=== PATIENT | female | born 1970 | race Caucasian/White ===

== ENCOUNTER 2021-06-13 05:54 | Day surgery (SDC) | payer MEDICAID, SELFPAY ==
[2021-06-13] VITALS (8 sets, daily range): BP systolic 96–119; BP diastolic 63–82; PULSE 63–70; RESP 14–17; TEMP 36.3–36.8; O2SAT 95–99; BMI 40.3
[2021-06-13] MEDS: Lactated Ringers 1,000 ML 15 ML IV (06:10)
[2021-06-13 06:35] LABS: Bedside Glucose 146 mg/dL (74-106)
--- NOTE | 2021-06-13 06:38 | PCM.HP.BLA ---
History and Physical Date of Admission: 06/13/21 50 F who presents to the office today for evaluation of her hiatal hernia the EGD and colonoscopy due to history of IBS and personal history of polyps. She has a history of cno-trbrgcn-wkodxsmfi diabetes mellitus, obesity, hiatal hernia status post repair in 2018. She also has a history of Cristian-en-Y gastric bypass in 2019. She has been having some problems with intermittent esophageal dysphagia and she thinks that her hiatal hernia has returned or she has developed an esophageal stricture. She takes 2000 mg of Metformin a day for blood sugar control. 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 She is not having any problems with constipation or diarrhea at this time. She does experience some nausea but she associates that with her tube that she has placed in her in her ear that drinks into the back of her throat. She had this to place due to history of frequent ear infections. She has a intermittent cough, but no chest pain or shortness of breath. She also reported reflux up to once a week with burning in the epigastric region with OTC Prilosec as needed which she finds effective. History of cholecystectomy 7.12.21 following onset of RUQ pain that was progressive. Ultrasound and CT scan suggested cholelithiasis. ROS Const Constitutional: No anorexia, fatigue, fever(s), weight change or sleep problems Eyes Eyes: No change in vision ENT ENT: No abnormal hearing, difficulty swallowing, mouth lesions, tongue swelling or throat swelling Resp Respiratory: No cough or shortness of breath Cardio Cardiology: No chest pain at rest, chest pain with exertion, shortness of breath or dyspnea on exertion Gastro GI: No difficulty swallowing Genitourinary-Female: No difficulty urinating or burning urination Musc Musculoskeletal: No joint pain, joint swelling, muscle weakness or decreased muscle mass Skin Skin: No hair loss in leg, yellowing of the eye, itchy eyes, rash, skin ulcer or skin swelling Neuro Neurology: No abnormal hearing, abnormal movements, confusion, unsteady gait/balance or memory loss Psych Psychiatric: No anxiety, No confusion and No memory loss Endo Endocrine: No fatigue or weight change Aller/Imm Allergy/Immunologic: No itchy eyes, throat swelling or tongue swelling Dioni/Lymp Hematologic/Lymphatic: No easy bleeding, easy bruising or enlarged lymph nodes Exam Const General: cooperative and comfortable Nutritional Appearance: average body habitus and well nourished [facility] Head: normal to inspection Ears: hearing grossly normal bilaterally Nose: external nose normal Face and sinus: normal facial exam Mouth: oral mucosae normal Throat: posterior oropharynx normal Eyes General: appearance normal, both eyes and all related structures Neck Neck: normal visual inspection Chest Chest palpation & inspection: normal inspection of the chest and normal palpation of entire chest wall Resp Effort & Inspection: normal respiratory effort Auscultation: Bilateral: Clear to Auscultation Cardio Palpation: normal PMI Rate: regular rate Rhythm: regular rhythm GI Inspection: normal to inspection Auscultation: normal bowel sounds Percussion: normal to percussion Palpation: no hepatosplenomegaly Skin General: no rashes or lesions noted Neuro General: patient alert Extrem General: normal to inspection Psych Affect: normal affect Quality Reporting Tobacco Screening ([facility] 138) Smoking Status: Current every day smoker Assessment and Plan Assessment and Plan (1) Encounter for screening for malignant neoplasm of colon: Status: Acute Plan - Dr. Ivan Friend, DO: She will undergo colonoscopy. She was explained alternatives, risk, benefits including not withstanding bleeding, infection, sepsis, perforation, need for emergent surgery . Have an ASA 1. (2) GERD (gastroesophageal reflux disease): Status: Acute Plan - Dr. Ivan Friend, DO: We will evaluate her upper GI tract and her Cristian-en-Y gastric bypass gastrojejunal anastomosis. She was explained alternatives, risk, benefits including outstanding bleeding, infection, sepsis, perforation, need for emergent . She will have an ASA of 1. I have re-examined the patient. There are no clinical changes since date of exam.
--- NOTE | 2021-06-13 07:00 | EGD_PTH ---
PATIENT: PARDEEP ALEXANDER LOC: [facility] U#:[id number] AGE/SX: 50/F ROOM: RE06/13/[address]: Dr. Moncho Carrillo DO : 1970 BED: DIS: 06/13/2021 SPEC #: [id number] RECD: 06/13/21 12:46 STATUS: KARINA ARMANI #: [id number] MICHAEL: 06/13/21 07:[address]: Moncho Carrillo DEPT: SURGICAL PATHOLOGY RECD BY: Madhuri Malik ENTERED: 06/13/21 13:08 SP TYPE: EGD BIOPSY KRISTEN DR: Dr. Sneha Bowling DO Tissues: A - Esophagus, NOS Procedures: Special Stain Group II Surgery Specimen Level IV Alcian Blue/PAS (control) HEADER OPERATION: Colonoscopy, EGD ([facility] [place]) PRE-OP DIAGNOSIS: Screening/GERD TISSUE SUBMITTED: Distal esophageal biopsy MICROSCOPIC DIAGNOSIS Distal esophagus, biopsy: Gastroesophageal junctional mucosa with changes of reflux and mild chronic inflammation. Focal goblet cell metaplasia. No evidence of dysplasia. See comment. AM:liam 06/14/2021 COMMENT Alcian blue/PAS stain with matched control supports the above diagnosis. MICROSCOPIC DESCRIPTION Slides are reviewed. GROSS DESCRIPTION Received in fixative is one container labeled with the patient's name and designated distal esophagus biopsy. The specimen consists of two irregular fragments of light manrique soft tissue that in aggregate measure 0.6 x 0.3 x 0.1 cm. The specimen is totally submitted in one cassette. / SJ:liam 06/13/2021 TC:3 CPT: 79497, 08246
--- NOTE | 2021-06-13 07:22 | OP.EGD_ITS ---
Patient Name: Belle Campa Procedure Date: 06/13/2021 6:20 AM Date of : 1970 Age: 50 Procedure: Upper GI endoscopy Indications: Dysphagia, Heartburn Providers: Moncho Carrillo DO Medicines: See the Anesthesia note for documentation of the administered medications Patient Profile: This is a 50 year old female. Refer to note in patient chart for documentation of history and physical. Patient has symptoms. She is status post colonoscopy for polyp removal and EGD (normal) within the past several years. Complications: No immediate complications. Procedure: Pre-Anesthesia Assessment: - Prior to the procedure, a History and Physical was performed, and patient medications and allergies were reviewed. The patient is competent. The risks and benefits of the procedure and the sedation options and risks were discussed with the patient. All questions were answered and informed consent was obtained. Patient identification and proposed procedure were verified by the physician in the pre-procedure area. Mental Status Examination: alert and oriented. Airway Examination: normal oropharyngeal airway and neck mobility. Respiratory Examination: clear to auscultation. CV Examination: normal. Prophylactic Antibiotics: The patient does not require prophylactic antibiotics. Prior Anticoagulants: The patient has taken no previous anticoagulant or antiplatelet agents. ASA Grade Assessment: II - A patient with mild systemic disease. After reviewing the risks and benefits, the patient was deemed in satisfactory condition to undergo the procedure. The anesthesia plan was to use moderate sedation / analgesia (conscious sedation). Immediately prior to administration of medications, the patient was re-assessed for adequacy to receive sedatives. The heart rate, respiratory rate, oxygen saturations, blood pressure, adequacy of pulmonary ventilation, and response to care were monitored throughout the procedure. The physical status of the patient was re-assessed after the procedure. After obtaining informed consent, the endoscope was passed under direct vision. Throughout the procedure, the patient's blood pressure, pulse, and oxygen saturations were monitored continuously. The gastroscope was introduced through the mouth, and advanced to the second part of duodenum. The upper GI endoscopy was accomplished without difficulty. The patient tolerated the procedure well. Moderate Sedation: Moderate (conscious) sedation was administered by the endoscopy nurse and supervised by the endoscopist. The patient's oxygen saturation, heart rate, blood pressure and response to care were monitored. Total physician intraservice time was 15 minutes. Scope In: 6:49:22 AM Scope Out: 6:52:43 AM Total Procedure Duration Time 0 hours 3 minutes 21 seconds Findings: The Z-line was irregular and was found 38 cm from the incisors. Biopsies were taken with a cold forceps for histology. Verification of patient identification for the specimen was done. Estimated blood loss was minimal. A small hiatal hernia was present. 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 The gastrojejunal anastomosis was characterized by healthy appearing mucosa. This was traversed. The awjjv-fm-pzmhcwx limb was characterized by healthy appearing mucosa. The jejunojejunal anastomosis was characterized by healthy appearing mucosa. The zhhjxwpz-tw-qdbfkeg limb was not examined as it could not be found. Impression: - Z-line irregular, 38 cm from the incisors. Biopsied. - Small hiatal hernia. - Cristian-en-Y gastrojejunostomy with gastrojejunal anastomosis characterized by healthy appearing mucosa. Recommendation: - Discharge patient to home. - Resume previous diet. - Continue present medications. - Await pathology results. - Repeat upper endoscopy in 1 year for surveillance based on pathology results. Procedure Code(s): --- Professional --- 93060, Esophagogastroduodenoscopy, flexible, transoral; with biopsy, single or multiple 94753, 59, Moderate sedation services provided by the same physician or other qualified health laboratory animal caretaker performing the diagnostic or therapeutic service that the sedation supports, requiring the presence of an independent trained observer to assist in the monitoring of the patient's level of consciousness and physiological status; initial 15 minutes of intraservice time, patient age 5 years or older CPT copyright 2017 [employer]. All rights reserved. The codes documented in this report are preliminary and upon setter off review may be revised to meet current compliance requirements. Moncho Carrillo DO 06/13/2021 7:21:35 AM This report has been signed electronically. Number of Addenda: 1 Note Initiated On: 06/13/2021 6:20 AM Addendum Number: 1 Addendum Date: 12/01/2021 6:42:15 AM MAC was used as sedation for this procedure. Moncho Carrillo DO 12/01/2021 6:42:19 AM This report has been signed electronically.
--- NOTE | 2021-06-13 07:26 | OP.COLON_ITS ---
Patient Name: Belle Campa Procedure Date: 06/13/2021 6:53 AM Date of : 1970 Age: 50 Procedure: Colonoscopy Indications: High risk colon cancer surveillance: Personal history of colonic polyps Providers: Moncho Carrillo DO Medicines: See the Anesthesia note for documentation of the administered medications Patient Profile: This is a 50 year old female. Refer to note in patient chart for documentation of history and physical. Patient has symptoms. She is status post colonoscopy for polyp removal and EGD (normal) within the past several years. Two adenomas were found on the previous colonoscopy. The polyps were flat and 5 mm in size. These polyps were removed (polypectomy performed). Resection and retrieval were complete. Last Colonoscopy: 5 years ago. Complications: No immediate complications. Procedure: Pre-Anesthesia Assessment: - Prior to the procedure, a History and Physical was performed, and patient medications and allergies were reviewed. The patient is competent. The risks and benefits of the procedure and the sedation options and risks were discussed with the patient. All questions were answered and informed consent was obtained. Patient identification and proposed procedure were verified by the physician in the pre-procedure area. Mental Status Examination: alert and oriented. Airway Examination: normal oropharyngeal airway and neck mobility. Respiratory Examination: clear to auscultation. CV Examination: normal. Prophylactic Antibiotics: The patient does not require prophylactic antibiotics. Prior Anticoagulants: The patient has taken no previous anticoagulant or antiplatelet agents. ASA Grade Assessment: II - A patient with mild systemic disease. After reviewing the risks and benefits, the patient was deemed in satisfactory condition to undergo the procedure. The anesthesia plan was to use moderate sedation / analgesia (conscious sedation). Immediately prior to administration of medications, the patient was re-assessed for adequacy to receive sedatives. The heart rate, respiratory rate, oxygen saturations, blood pressure, adequacy of pulmonary ventilation, and response to care were monitored throughout the procedure. The physical status of the patient was re-assessed after the procedure. After I obtained informed consent, the scope was passed under direct vision. Throughout the procedure, the patient's blood pressure, pulse, and oxygen saturations were monitored continuously. The pediatric colonoscope was introduced through the anus and advanced to the cecum, identified by appendiceal orifice and ileocecal valve. The colonoscopy was performed without difficulty. The patient tolerated the procedure well. The quality of the bowel preparation was good. Moderate Sedation: Moderate (conscious) sedation was administered by the endoscopy nurse and supervised by the endoscopist. The following parameters were monitored: oxygen saturation, heart rate, blood pressure, and response to care. Total physician intraservice time was 15 minutes. Scope In: 6:55:10 AM Scope Withdrawal Time 0 hours 9 minutes 25 seconds Scope Out: 7:14:06 AM Total Procedure Duration Time 0 hours 18 minutes 56 seconds Findings: Hemorrhoids were found on perianal exam. A few small-mouthed diverticula were found in the recto-sigmoid colon and sigmoid colon. The exam was otherwise without abnormality on direct and retroflexion views. Impression: - Hemorrhoids found on perianal exam. - Diverticulosis in the recto-sigmoid colon and in the sigmoid colon. - The examination was otherwise normal on direct and retroflexion views. - No specimens collected. Recommendation: - Discharge patient to home. - Resume previous diet. - Continue present medications. - Repeat colonoscopy in 5 years for surveillance. Procedure Code(s): --- Professional --- 43514, Colonoscopy, flexible; diagnostic, including collection of specimen(s) by brushing or washing, when performed (separate procedure) G0500, Moderate sedation services provided by the same physician or other qualified health women's health care nurse practitioner performing a gastrointestinal endoscopic service that sedation supports, requiring the presence of an independent trained observer to assist in the monitoring of the patient's level of consciousness and physiological status; initial 15 minutes of intra-service time; patient age 5 years or older (additional time may be reported with 45188, as appropriate) CPT copyright 2017 [employer]. All rights reserved. The codes documented in this report are preliminary and upon special events assistant review may be revised to meet current compliance requirements. Moncho Carrillo DO 06/13/2021 7:25:52 AM This report has been signed electronically. Number of Addenda: 1 Note Initiated On: 06/13/2021 6:53 AM Addendum Number: 1 Addendum Date: 12/01/2021 6:42:27 AM MAC was used as sedation for this procedure. Moncho Carrillo DO 12/01/2021 6:42:31 AM This report has been signed electronically.
== END 2021-06-13 23:59 | disposition home or self-care (01) ==
LOC: EN 05:57 → AC 06:33
PROVIDERS: Visit Provider Internal Medicine Gastroenterology
PROC: 0DJD8ZZ Inspection of Lower Intestinal Tract, Via Natural or Artificial Opening Endoscopic (ICD-10-PCS; CPT 45378; principal; 2021-06-13 06:55)
DX: Z12.11 Encounter for screening for malignant neoplasm of colon (principal); E11.40 Type 2 diabetes mellitus with diabetic neuropathy, unspecified; Z68.41 Body mass index [BMI] 40.0-44.9, adult; K57.30 Diverticulosis of large intestine without perforation or abscess without bleeding; K64.9 Unspecified hemorrhoids; R12 Heartburn; R13.10 Dysphagia, unspecified; K44.9 Diaphragmatic hernia without obstruction or gangrene; F41.9 Anxiety disorder, unspecified; F17.200 Nicotine dependence, unspecified, uncomplicated; Z79.84 Long term (current) use of oral hypoglycemic drugs; Z79.899 Other long term (current) drug therapy; Z98.84 Bariatric surgery status; E66.9 Obesity, unspecified; Z86.010 Personal history of colon polyps; K21.00 Gastro-esophageal reflux disease with esophagitis, without bleeding
CPT/HCPCS: 45378; 43239; 82962; 88305; 88313; J7120; J2405

== ENCOUNTER 2023-01-30 13:42 | Day surgery (SDC) | payer MEDICAID, SELFPAY ==
--- NOTE | 2023-01-30 | EGD_PTH ---
PATIENT: PARDEEP ALEXANDER LOC: [facility] U#:[id number] AGE/SX: 52/F ROOM: RE01/30/[address]: Dr. Moncho Carrillo DO : 1970 BED: DIS: 01/30/2023 SPEC #: [id number] RECD: 01/30/23 16:24 STATUS: KARINA ARMANI #: [id number] MICHAEL: 01/30/23 00:[address]: Moncho Carrillo DEPT: SURGICAL PATHOLOGY RECD BY: Sp Crenshaw ENTERED: 01/31/23 07:38 SP TYPE: EGD BIOPSY KRISTEN DR: Dr. Sneha Bowling DO Tissues: Esophagus, NOS Procedures: Special Stain Group II Surgery Specimen Level IV Alcian Blue/PAS (control) HEADER OPERATION: EGD with biopsies, dilatation PRE-OP DIAGNOSIS: Nausea, GERD, dysphagia TISSUE SUBMITTED: Distal esophagus biopsy MICROSCOPIC DIAGNOSIS Distal esophagus, biopsy: Gastroesophageal junctional mucosa with mild chronic inflammation. No evidence of goblet cell metaplasia. See comment. AM:liam 02/01/2023 COMMENT Alcian blue/PAS stain with matched control supports the above diagnosis. MICROSCOPIC DESCRIPTION Slides are reviewed. GROSS DESCRIPTION Received in fixative is one container labeled with the patient's name and designated distal esophagus biopsy. The specimen consists of two irregular fragments of light manrique soft tissue that in aggregate measure 0.7 x 0.3 x 0.1 cm. The specimen is totally submitted in one cassette. / AM:liam 01/31/2023 TC:3 CPT: 64895, 68559
[2023-01-30 14:02] VITALS: BP 135/80; PULSE 75; RESP 18; TEMP 36.3; O2SAT 98; BMI 39.5
[2023-01-30] MEDS: Lactated Ringers 1,000 ML 15 ML IV (14:10)
--- NOTE | 2023-01-30 14:50 | PCM.HP.BLA ---
History and Physical Date of Admission: 01/30/23 52 F who presents to the office today for *BGI established 04.14.21 for screening colonoscopy and intermittent esophageal dysphagia. History of Cristian-en-Y gastric bypass 2018; cholecystectomy 09.11.18 ? EGD and colonoscopy 06.13.21 Irregular Zline; small hiatal hernia; Cristian-en-y gastrojejunostomy with healthy anastomosis. Metaplasia neg. ? Colonoscopy hemorrhoids; diverticulosis. No specimens OV 09.30.21 still has intermittent dysphagia but finds PPI and gas-X helpful. Start reglan and PPI BID.OV 01.11.23 she has been having nausea followed by dysphagia with intermittent emesis following PO intake. She is not taking protonix or reglan. BM pattern is regular and wit ROS Const Constitutional: No body ache, chills, fatigue or fever(s) ENT ENT: No tongue swelling or throat swelling Resp Respiratory: No cough, shortness of breath or wheezing Gastro GI: No nausea/dyspepsia Skin Skin: Positive for redness, itchy eyes and rash Endo Endocrine: No fatigue Aller/Imm Allergy/Immunologic: Positive for itchy eyes; No throat swelling, tongue swelling or wheezing Exam Const General: cooperative, healthy appearing, comfortable, no acute distress, well developed and well groomed Nutritional Appearance: overweight Orientation: alert, awake and oriented x3 HENMT Head: normocephalic and atraumatic Resp Effort & Inspection: normal respiratory effort, able to speak in complete sentences, symmetric chest movement and no cough Auscultation: Bilateral: Clear to Auscultation Cardio Rate: regular rate Rhythm: regular rhythm Heart Sounds: no murmurs Skin Other: right upper chest irreg annular lesion about 3 inch in diameter, slightly raised, mildly erythematous, mildly excoriated, no drainage, nontender, no inc. warmth Quality Reporting Tobacco Screening ([facility] [address]) Smoking Status: Former smoker Assessment and Plan Assessment and Plan (1) Nausea: Status: Chronic Plan: Chronic nausea can be a side effect from gastric bypass due to removal of gastrin. I would like to get a upper GI with follow-through plus or minus gastric emptying study (2) History of Cristian-en-Y gastric bypass: Status: Chronic Comment: 2019 (3) GERD (gastroesophageal reflux disease): Status: Inactive Qualifiers: Esophagitis presence: with esophagitis Esophagitis bleeding: without hemorrhage Qualified Code(s): K21.00 - Gastro-esophageal reflux disease with esophagitis, without bleeding Plan: She is having worsening gastroesophageal reflux disease that I thought was secondary to bile induced gastritis. She underwent an upper endoscopy was discovered to have a patent wire with a normal gastric pouch. There is no ulcerations at the proximal anastomosis with distal anastomosis. Biopsies were taken throughout the small bowel and it did show mild chronic inflammation with some very small inflammation at the site of surgery. I will give her a course of Reglan therapy along with switching her PPI to Protonix therapy (4) Encounter for screening for malignant neoplasm of colon: Status: Acute Plan: Her colonoscopy did not reveal any adenomatous polyp. She did have diverticular disease. She will need a repeat colonoscopy in 5 years. (5) Dysphagia: Status: Acute Qualifiers: Dysphagia type: esophageal phase Qualified Code(s): R13.19 - Other dysphagia Plan: She will need to undergo an upper endoscopy to evaluate upper GI tract. She was explained alternatives, risk, benefits include not withstanding bleeding, pectin, sepsis, perforation, need for return to . She will have an ASA of 3. Medications: New pantoprazole 20 mg PO Q12H 3 months 180 tabs 3RF I have examined the patient and the H&P has been reviewed. There are no clinical changes since date of exam.
--- NOTE | 2023-01-30 15:09 | OP.CCLET_ITS ---
01/30/2023 Sneha Bowling Re : Upper GI endoscopy procedure for Belle Campa Dear Dash This procedure was performed on Monday, January 30, 2023. My impressions and recommendations are as follows: Impressions : - Benign-appearing esophageal stenosis. Dilated. - Z-line irregular, 38 cm from the incisors. Biopsied. - Medium-sized hiatal hernia. - Cristian-en-Y gastrojejunostomy. Recommendations : - Discharge patient to home. - Resume previous diet. - Continue present medications. - Await pathology results. My findings are described in the full procedure note, which is enclosed. If I can be of further assistance, please feel free to contact me at . Sincerely, Moncho Carrillo, 01/30/2023 3:09:14 PM This report has been signed electronically.
--- NOTE | 2023-01-30 15:09 | OP.EGD_ITS ---
Patient Name: Belle Campa Procedure Date: 01/30/2023 2:51 PM Date of : 1970 Age: 52 Procedure: Upper GI endoscopy Indications: Dysphagia Providers: Moncho Carrillo DO Referring MD: Moncho Carrillo DO Medicines: Monitored Anesthesia Care Patient Profile: This is a 52 year old female. Refer to note in patient chart for documentation of history and physical. Patient has symptoms of dysphagia with solids. Complications: No immediate complications. Procedure: Pre-Anesthesia Assessment: - Prior to the procedure, a History and Physical was performed, and patient medications and allergies were reviewed. The patient is competent. The risks and benefits of the procedure and the sedation options and risks were discussed with the patient. All questions were answered and informed consent was obtained. Patient identification and proposed procedure were verified by the physician in the pre-procedure area. Mental Status Examination: alert and oriented. Airway Examination: normal oropharyngeal airway and neck mobility. Respiratory Examination: clear to auscultation. CV Examination: normal. Prophylactic Antibiotics: The patient does not require prophylactic antibiotics. Prior Anticoagulants: The patient has taken no anticoagulant or antiplatelet agents. ASA Grade Assessment: II - A patient with mild systemic disease. After reviewing the risks and benefits, the patient was deemed in satisfactory condition to undergo the procedure. The anesthesia plan was to use monitored anesthesia care (MAC). Immediately prior to administration of medications, the patient was re-assessed for adequacy to receive sedatives. The heart rate, respiratory rate, oxygen saturations, blood pressure, adequacy of pulmonary ventilation, and response to care were monitored throughout the procedure. The physical status of the patient was re-assessed after the procedure. After obtaining informed consent, the endoscope was passed under direct vision. Throughout the procedure, the patient's blood pressure, pulse, and oxygen saturations were monitored continuously. The gastroscope was introduced through the mouth, and advanced to the jejunum. The upper GI endoscopy was accomplished without difficulty. The patient tolerated the procedure well. Scope In: 2:58:31 PM Scope Out: 3:01:00 PM Total Procedure Duration Time 0 hours 2 minutes 29 seconds Findings: One benign-appearing, intrinsic moderate (circumferential scarring or stenosis; an endoscope may pass) stenosis was found 20 cm from the incisors. This stenosis measured 3 cm (in length). The stenosis was traversed. A guidewire was placed and the scope was withdrawn. Dilation was performed with a Savary dilator with no resistance at 60 Fr. The dilation site was examined and showed moderate improvement in luminal narrowing. Estimated blood loss was minimal. The Z-line was irregular and was found 38 cm from the incisors. Biopsies were taken with a cold forceps for histology. Verification of patient identification for the specimen was done. Estimated blood loss was minimal. A medium-sized hiatal hernia was present. 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 The jejunojejunal anastomosis was characterized by healthy appearing mucosa. The jujfqgcv-xs-[id number] limb was not examined as it could not be found. The excluded stomach was not examined as it could not be found. Impression: - Benign-appearing esophageal stenosis. Dilated. - Z-line irregular, 38 cm from the incisors. Biopsied. - Medium-sized hiatal hernia. - Cristian-en-Y gastrojejunostomy. Recommendation: - Discharge patient to home. - Resume previous diet. - Continue present medications. - Await pathology results. Procedure Code(s): --- Professional --- 09848, Esophagogastroduodenoscopy, flexible, transoral; with insertion of guide wire followed by passage of dilator(s) through esophagus over guide wire 78424, 59,51, Esophagogastroduodenoscopy, flexible, transoral; with biopsy, single or multiple CPT copyright 2021 [employer]. All rights reserved. The codes documented in this report are preliminary and upon partition notcher review may be revised to meet current compliance requirements. Moncho Carrillo DO 01/30/2023 3:09:14 PM This report has been signed electronically. Number of Addenda: 0 Note Initiated On: 01/30/2023 2:51 PM
[2023-01-30 15:10] VITALS: BP 132/76; BP 135/80; PULSE 85; RESP 16; TEMP 36.5; O2SAT 95
[2023-01-30 15:15] VITALS: BP 128/79; BP 135/80; PULSE 71; RESP 16; O2SAT 96
[2023-01-30 15:20] VITALS: BP 132/75; BP 135/80; PULSE 75; RESP 16; O2SAT 96
[2023-01-30 15:25] VITALS: BP 123/94; BP 135/80; PULSE 72; RESP 16; TEMP 36.5; O2SAT 96
[2023-01-30 15:46] VITALS: BP 135/80
[2023-01-30 18:06] LABS: Bedside Glucose 122 mg/dL (74-106)
== END 2023-01-30 16:09 | disposition home or self-care (01) ==
LOC: EN 13:44 → AC 13:46
PROVIDERS: Visit Provider Internal Medicine Gastroenterology
PROC: 0DJ08ZZ Inspection of Upper Intestinal Tract, Via Natural or Artificial Opening Endoscopic (ICD-10-PCS; CPT 43235; principal; 2023-01-30 14:40)
DX: K22.2 Esophageal obstruction (principal); E11.9 Type 2 diabetes mellitus without complications; K21.00 Gastro-esophageal reflux disease with esophagitis, without bleeding; K44.9 Diaphragmatic hernia without obstruction or gangrene; Z87.891 Personal history of nicotine dependence; Z98.84 Bariatric surgery status; Z90.49 Acquired absence of other specified parts of digestive tract; Z98.0 Intestinal bypass and anastomosis status; Z79.84 Long term (current) use of oral hypoglycemic drugs
CPT/HCPCS: 43248; 43239; 82962; 88305; 88313; J7120; C1769; J2405

== ENCOUNTER → 2023-02-12 | Outpatient (CLI) | payer MEDICAID, SELFPAY ==
--- NOTE | 2023-02-12 07:50 | RAD_ITS ---
PROCEDURE: Air contrast Upper GI with Small Bowel Follow Through DATE OF EXAMINATION: February 12, 2023.. INDICATION: Female, 52 years old. Dysphagia. Nausea and vomiting. History of prior gastric bypass surgery. FLUOROSCOPY TIME (if supplied): (0:56) minutes/seconds. 25.09 mGy. 30 images were obtained. TECHNIQUE: Radiographic and fluoroscopic images of the distal esophagus, stomach, and entire small intestine were obtained following the oral ingestion of barium. COMPARISON: None. FINDINGS: The patient ingested barium. Multiple images of the esophagus stomach and duodenum were obtained. The esophagus is unremarkable. No evidence of obstruction. No evidence of gastroesophageal reflux. The patient is status post gastric bypass surgery. No evidence of obstruction. No evidence of ulceration. A small bowel follow-through examination was then obtained. Contrast is seen within the terminal ileum within 30 minutes. No intrinsic small bowel disease is seen. RAD/Upper GI/w Small Bowel IMPRESSION: 1. Status post gastric bypass surgery. No acute abnormality is seen. Electronically Signed: Houston Tafoya MD at 10:10 EST ,
== END | disposition home or self-care (01) ==
LOC: RAD 07:44
PROVIDERS: Referring Provider Internal Medicine Gastroenterology; Visit Provider Internal Medicine Gastroenterology
DX: R13.19 Other dysphagia (principal)
CPT/HCPCS: 74246; 74248

== ENCOUNTER 2023-09-07 07:49 | Day surgery (SDC) | payer MEDICAID, SELFPAY ==
[2023-09-07] MEDS: Lidocaine Jelly 2% 20 ML Syringe (URO-JET) 1 APPLIC (08:20)
[2023-09-07 08:22] VITALS: BP 123/95; PULSE 71; RESP 16; TEMP 36.3; O2SAT 100
== END 2023-09-07 08:49 | disposition home or self-care (01) ==
PROVIDERS: Visit Provider Internal Medicine Gastroenterology
PROC: F00ZJWZ Instrumental Swallowing and Oral Function Assessment using Swallowing Equipment (ICD-10-PCS; CPT 43235; principal; 2023-09-07 07:55)
DX: K44.9 Diaphragmatic hernia without obstruction or gangrene (principal)
CPT/HCPCS: 91010

== ENCOUNTER 2023-09-20 09:06 | Day surgery (SDC) | payer MEDICAID, SELFPAY ==
[2023-09-20] VITALS (9 sets, daily range): BP systolic 110–125; BP diastolic 66–76; PULSE 68–80; RESP 16–18; TEMP 36.6–37.1; O2SAT 95–97; BMI 40.0
--- NOTE | 2023-09-20 | ESO_PTH ---
PATIENT: PARDEEP ALEXANDER LOC: [facility] U#:[id number] AGE/SX: 53/F ROOM: RE09/20/[address]: Dr. Moncho Carrillo DO : 1970 BED: DIS: 09/20/2023 SPEC #: [id number] RECD: 09/20/23 13:15 STATUS: KARINA ARMANI #: [id number] MICHAEL: 09/20/23 00:[address]: Moncho Carrillo DEPT: SURGICAL PATHOLOGY RECD BY: Rodrigo Etienne ENTERED: 09/20/23 13:15 SP TYPE: GEN PETERSON DR: Dr. Sneha Bowling DO Tissues: Esophagus, NOS Procedures: Special Stain Group I Surgery Specimen Level IV Alcian Blue/PAS (control) HEADER OPERATION: EGD, biopsy, dilatation PRE-OP DIAGNOSIS: TISSUE SUBMITTED: Distal esophagus biopsy MICROSCOPIC DIAGNOSIS Distal esophagus, biopsy: Gastroesophageal junctional mucosa with mild chronic inflammation. Focal changes of reflux. No evidence of goblet cell metaplasia. See comment. / 09/21/2023 COMMENT Alcian blue/PAS stain with matched control supports the above diagnosis. MICROSCOPIC DESCRIPTION Slides are reviewed. GROSS DESCRIPTION Received in fixative is one container labeled with the patient's name and designated Distal esophagus biopsy. The specimen consists of two irregular fragments of light manrique soft tissue that in aggregate measure 0.8 x 0.3 x 0.1 cm. The specimen is totally submitted in one cassette. COSTA/ 09/20/2023 TC:3 CPT:27078,19979
[2023-09-20] MEDS: Lactated Ringers 1,000 ML 15 ML IV (09:44)
--- NOTE | 2023-09-20 10:14 | PRE.ANES_ITS ---
ASA Classification* ASA Classification ASA Classification: 3 Assessment & Plan Anesthesia* Anesthesia Assessment Anesthesia Assessment: Discussed sedation and/or anesthesia options, risks, benefits, and alternatives with patient/parents/legal guardian/POA. Questions invited. The patient/parents/legal guardian/POA seems to understand and agrees to proceed with anesthesia plan. Reviewed the physical assessment, medical history, allergy history and patient home medications list prior to surgery/procedure/anesthetic and documented any changes. Performed airway and anesthesia risk assessments. Anesthesia Type Anesthesia Type: MAC History Source History Obtained from:: Patient and Chart Anesthesia Focused Assessment* Temperature: 98.7 F Pulse Rate: 72 Blood Pressure: 125/76 Respiratory Rate: 18 Pulse Ox: 97 Oxygen Delivery Method: Room Air Airway Assessment Mouth opens: 2 cm Mallampati Score: IV Teeth Condition: Missing (Multiple missing teeth. Rest are tight) Neck Range of motion (ROM): Limited ROM Focused Labs Anesthesia Preop lab: CBC WBC 7.4 K/mm3 (4.4-11.0) 01/30/12 13:14 RBC 4.59 M/mm3 (4.2-5.4) 01/30/12 13:14 Hgb 13.9 g.dL (12.0-15.0) 01/30/12 13:14 Hct 42.2 % (37-47) 01/30/12 13:14 Plt Count 254 K/mm3 (150-450) 01/30/12 13:14 CHEMISTRY Potassium 3.6 mmol/L (3.5-5.1) 01/30/12 13:14 Sodium 137 mmol/L (136-145) 01/30/12 13:14 BUN 11 mg/dL (7-18) 01/30/12 13:14 Creatinine 0.8 mg/dL (0.6-1.0) 01/30/12 13:14 Glucose 67 mg/dL (70-110) L 01/30/12 13:14 POC Glucose 122 mg/dL (74-106) H 01/30/23 14:00 COAG Pre-Assessment Diagnosis/Proposed Procedure Planned Operative Procedure(s): EGD Anesthesia History Anesthesia History - credit card interviewer: Anesthesia History - credit card interviewer Hx Hospitalization No 09/17/23 15:11 Any Problems With Anesthesia No 09/17/23 15:11 Cholinesterase deficiency No 09/17/23 15:11 You/Your Family Experience No 09/17/23 15:11 fever (hyperthermia) with Relationship Recent Exposure to Contagious No 09/20/23 09:36 Disease Does patient have nerve No 09/17/23 15:11 stimulator Patient instructed to have device shut off --Does patient have Pacemaker No 09/20/23 09:37 or ICD? When Was Last Pacemaker Check QUESTION #4 FULL TEXT: You/Your Family Experience fever (hyperthermia) with Anesthesia Last Oral Intake Last Oral intake: Last Oral Intake NPO since 22:00 09/20/23 09:37 Meds taken in AM with sips of No 09/20/23 09:37 water? Meds patient instructed to take am of surgery PONV PONV - credit card interviewer: PONV - credit card interviewer Female Yes 09/17/23 15:11 HX of Motion Sickness No 09/17/23 15:11 HX of N/V After Surgery No 09/17/23 15:11 Non-Smoker Yes 09/17/23 15:11 Duration of Surgery greater No 09/17/23 15:11 than 60 minutes Number of Risk Factors 2 09/17/23 15:11 PONV Score Moderate Risk 09/17/23 15:11 Height & Weight Height & Weight: Anesthesia: Height & Weight Height 5 ft 2 in 09/20/23 09:37 Weight: 99.246 kg 09/20/23 09:37 Body Mass Index (BMI) 40.0 09/20/23 09:37 Respiratory Assessment Respiratory Assessment - credit card interviewer: Respiratory Tract Infection Hx - credit card interviewer Hx Respiratory Tract Infection No 09/17/23 15:11 STOP Sleep Apnea STOP Sleep Apnea - credit card interviewer: STOP Sleep Apnea - credit card interviewer Hx Hypertension No 09/17/23 15:11 Hx Sleep Apnea Yes 09/17/23 15:11 CPAP Yes 09/17/23 15:11 BIPAP No 09/17/23 15:11 Do you snore loudly (louder than talking or can be heard Do you often feel tired/ fatigued/ sleepy during daytime? Has anyone observed you stop breathing during sleep? STOP Results Positive 09/17/23 15:11 QUESTION #5 FULL TEXT : Do you snore loudly (louder than talking or can be heard through closed doors)? 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 Specify any problems Hx of Preganancy in last 3 No 09/17/23 15:11 Months Nurse Filling Out Transfusion VCHRISTIN 09/17/23 15:11 & Questions: Date: 09/17/23 09/17/23 15:11 Time: 15:12 09/17/23 15:11 Patient unable to answer at this time (ie. confused, unrespo /Reproduction History /Reproductive History - credit card interviewer: /Reproductive Hx- credit card interviewer Hx Now Gestational Age (in weeks): EDC: Hx Hx Para Hx Section SAB No 09/17/23 15:11 Active Medications Active Medications: Current Medications Generic Name Dose Route Start Last Admin Trade Name Freq PRN Reason Stop Dose Admin Lactated Ringer's 1,000 mls @ 15 mls/hr 09/20/23 09:15 09/20/23 09:44 IV 15 mls/hr .Q48H BERNADETTE Administration PFSH Medical History History of hiatal hernia Sleep apnea Wears glasses Anxiety Diabetes Restless legs Dietary restriction Gastric reflux Former smoker CPAP (continuous positive airway pressure) dependence Neuropathy History of echocardiogram History of stress test Hypertension Encounter for screening for malignant neoplasm of colon Home Medications ?Medication ?Instructions ?Recorded ?Last Taken ?Type alprazolam 0.25 mg tablet (Xanax) 0.5 mg PO PRN PRN Anxiety 06/08/21 09/19/23 22:00 History biotin 5,000 mcg sublingual tablet 5,000 mcg sublingual DAILY 06/08/21 09/06/23 History fluoxetine 40 mg capsule (Prozac) 80 mg PO DAILY 06/08/21 09/19/23 08:00 History gabapentin 100 mg tablet 300 mg PO TID 06/08/21 09/19/23 17:00 History hydrochlorothiazide 25 mg tablet 25 mg PO DAILY 06/08/21 09/19/23 08:00 History lisinopril 20 mg tablet 20 mg PO DAILY 06/08/21 09/19/23 08:00 History metformin 1,000 mg tablet 1,000 mg PO BID 06/08/21 09/19/23 20:00 History cetirizine 10 mg tablet 10 mg PO DAILY 01/23/23 09/19/23 History pantoprazole 20 mg tablet,delayed 20 mg PO BID 07/26/23 09/19/23 22:00 History release amitriptyline 25 mg tablet 25 mg PO QHS #30 tabs 09/03/23 09/19/23 22:00 Rx diltiazem HCl 30 mg tablet 30 mg PO QHS #30 tabs 09/03/23 09/19/23 22:00 Rx (Cardizem) dulaglutide 0.75 mg/0.5 mL 0.75 mg subcut QWEEK 09/17/23 09/16/23 History subcutaneous pen injector (Trulicity) Allergy/AdvReac Type Severity Reaction Status Date / Time codeine (From Allergy Rash Verified 09/20/23 09:32 Tylenol-Codeine) hydrocodone (From Vicodin) Allergy Rash Verified 09/20/23 09:32 Sulfa (Sulfonamide Allergy Rash Verified 09/20/23 09:32 Antibiotics) Surgical History History of esophagogastroduodenoscopy (EGD) Bariatric surgery status Hx of colonoscopy History of esophagogastroduodenoscopy (EGD) Hx of hernia repair History of tonsillectomy and adenoidectomy Hx of foot surgery Hx of total hysterectomy Hx of gastric bypass Hx laparoscopic cholecystectomy Social History Smoking Status: Former smoker Review of Systems (Anesthesia) ROS Narrative System reviewed and no additional complaints, except as documented.
[2023-09-20 10:21] LABS: Bedside Glucose 107 mg/dL (74-106)
--- NOTE | 2023-09-20 10:40 | PCM.HP.BLA ---
History and Physical Date of Admission: 09/20/23 ROSE ALEXANDER, is a 52 F who presents to the office today for follow up. *[facility] established 04.14.21 for screening colonoscopy and intermittent esophageal dysphagia. History of Cristian-en-Y gastric bypass 2018; cholecystectomy 09.11.18 ? EGD and colonoscopy 06.13.21 Irregular Zline; small hiatal hernia; Cristian-en-y gastrojejunostomy with healthy anastomosis. Metaplasia neg. ? Colonoscopy hemorrhoids; diverticulosis. No specimens OV 09.30.21 still has intermittent dysphagia but finds PPI and gas-X helpful. Start reglan and PPI BID. OV 01.11.23 she has been having nausea followed by dysphagia with intermittent emesis following PO intake. She is not taking protonix or reglan. BM pattern is regular and without difficulty. ? EGD 01.30.23 esophageal stenosis, Savary 60F; irregular Zline; medium hiatal hernia; Cristian-en-Y with healthy anastomosis. No metaplasia ? Upper GISBFT 02.12.23 no acute/chronic abnormality. OV 02.16. feels swallowing, nausea have improved but are still present; epigastric pain continues. Admits to poor diet as she does a lot of traveling. OV 07.24.24 pt reports that N/V have improved and occur maybe once or twice a month. Pt continues to struggle with swallowing and feels like food is getting stuck in her throat. ROS Const Constitutional: Positive for fatigue and weight change (weight loss and gain ); No fever(s) ENT ENT: Positive for difficulty swallowing Cardio Cardiology: Positive for leg pain with exertion Gastro GI: Positive for bloating, difficulty swallowing, excessive flatus, nausea/dyspepsia and vomiting; No abdominal pain, belching, change in bowel habits, change in stool character, coffee ground emesis, constipation, cramping, diarrhea, heartburn, feeling full early, incontinent of stools, Vomiting blood/hematemesis, Blood in stool, loose stools, Black,tarry stools, pain with swallowing or other Musc Musculoskeletal: Positive for joint pain, back pain, joint swelling, muscle cramps, muscle weakness, numbness, tingling, Arthritis, leg pain at night and leg pain with exertion Skin Skin: No yellowing of the eye or itchy eyes Neuro Neurology: Positive for numbness, tingling and tremor(s) Psych Psychiatric: Positive for anxiety and No depression Endo Endocrine: Positive for fatigue and weight change (weight loss and gain ) Aller/Imm Allergy/Immunologic: No itchy eyes Dioni/Lymp Hematologic/Lymphatic: Positive for easy bruising; No easy bleeding Exam Const General: cooperative, healthy appearing, comfortable, no acute distress, well developed and well groomed Nutritional Appearance: overweight Orientation: alert, awake and oriented x3 HENMT Head: normocephalic and atraumatic Resp Effort & Inspection: normal respiratory effort, able to speak in complete sentences, symmetric chest movement and no cough Auscultation: Bilateral: Clear to Auscultation Cardio Rate: regular rate Rhythm: regular rhythm Heart Sounds: no murmurs Skin Other: right upper chest irreg annular lesion about 3 inch in diameter, slightly raised, mildly erythematous, mildly excoriated, no drainage, nontender, no inc. warmth Assessment and Plan Assessment and Plan (1) Dysphagia: Status: Chronic Qualifiers: Dysphagia type: esophageal phase Qualified Code(s): R13.19 - Other dysphagia Plan: She will need to undergo an upper endoscopy to evaluate upper GI tract with botox and possible dilation. She was explained alternatives, risk, benefits include not withstanding bleeding, pectin, sepsis, perforation, need for return to . She will have an ASA of 3. (2) History of Cristian-en-Y gastric bypass: Status: Chronic Comment: 2019 (3) Nausea: Status: Chronic Plan: Chronic nausea can be a side effect from gastric bypass due to removal of gastrin. I would like to get a upper GI with follow-through plus or minus gastric emptying study. Since her upper GI with small bowel follow-through showed narrowing at the GE junction she will undergo EGD with dilation. (4) GERD (gastroesophageal reflux disease): Status: Inactive Qualifiers: Esophagitis presence: with esophagitis Esophagitis bleeding: without hemorrhage Qualified Code(s): K21.00 - Gastro-esophageal reflux disease with esophagitis, without bleeding Plan: She is having worsening gastroesophageal reflux disease that I thought was secondary to bile induced gastritis. She underwent an upper endoscopy was discovered to have a patent wire with a normal gastric pouch. There is no ulcerations at the proximal anastomosis with distal anastomosis. Biopsies were taken throughout the small bowel and it did show mild chronic inflammation with some very small inflammation at the site of surgery. I will give her a course of Reglan therapy along with switching her PPI to Protonix therapy (5) Encounter for screening for malignant neoplasm of colon: Status: Inactive Plan: Her colonoscopy did not reveal any adenomatous polyp. She did have diverticular disease. She will need a repeat colonoscopy in 5 years. Orders: Orders\ I have examined the patient and the H&P has been reviewed. There are no clinical changes since date of exam.
--- NOTE | 2023-09-20 11:10 | OP.CCLET_ITS ---
09/20/2023 Sneha Bowling Re : Upper GI endoscopy procedure for Belle Hamm Dear Dash This procedure was performed on September. My impressions and recommendations are as follows: Impressions : - Benign-appearing esophageal stenosis. Dilated. - Gastric bypass with a normal-sized pouch and intact staple line. Gastrojejunal anastomosis characterized by healthy appearing mucosa. - Normal examined jejunum. - No specimens collected. Recommendations : - Discharge patient to home. - Full liquid diet today. - Continue present medications. - Await pathology results. My findings are described in the full procedure note, which is enclosed. If I can be of further assistance, please feel free to contact me at . Sincerely, Moncho Carrillo, 09/20/2023 11:09:47 AM This report has been signed electronically.
--- NOTE | 2023-09-20 11:10 | OP.EGD_ITS ---
Patient Name: Belle Hamm Procedure Date: 09/20/2023 10:34 AM Date of : 1970 Age: 53 Procedure: Upper GI endoscopy Indications: Dysphagia Providers: Moncho Carrillo DO Medicines: Monitored Anesthesia Care Patient Profile: This is a 53 year old female. Refer to note in patient chart for documentation of history and physical. Patient has symptoms of chronic chest pain and chronic dysphagia. Complications: No immediate complications. Procedure: Pre-Anesthesia Assessment: - Prior to the procedure, a History and Physical was performed, and patient medications and allergies were reviewed. The risks and benefits of the procedure and the sedation options and risks were discussed with the patient. All questions were answered and informed consent was obtained. Patient identification and proposed procedure were verified [Verifying Personnel] [Verification]. [Mental Status Exam]. [Airway Exam]. [Respiratory Exam]. [CV Exam]. The patient [Abx Prophylaxis Requirement] prophylactic antibiotics [High Risk History Reason] and [High Risk Procedure Reason]. [Anticoagulant Agents] [Days Prior to Procedure]. [ASA Grade]. After reviewing the risks and benefits, the patient was deemed in satisfactory condition to undergo the procedure. [Anesthesia Plan]. Immediately prior to administration of medications, the patient was re-assessed for adequacy to receive sedatives. The heart rate, respiratory rate, oxygen saturations, blood pressure, adequacy of pulmonary ventilation, and response to care were monitored throughout the procedure. The physical status of the patient was re-assessed after the procedure. After obtaining informed consent, the endoscope was passed under direct vision. Throughout the procedure, the patient's blood pressure, pulse, and oxygen saturations were monitored continuously. The gastroscope was introduced through the mouth, and advanced to the jejunum. The upper GI endoscopy was accomplished without difficulty. The patient tolerated the procedure well. Scope In: 10:58:03 AM Scope Out: 11:02:52 AM Total Procedure Duration Time 0 hours 4 minutes 49 seconds Findings: One benign-appearing, intrinsic moderate (circumferential scarring or stenosis; an endoscope may pass) stenosis was found 20 to 22 cm from the incisors. This stenosis measured 4 cm (in length). The stenosis was traversed. A guidewire was placed and the scope was withdrawn. Dilation was performed with a Savary dilator with no resistance at 60 Fr. The dilation site was examined and showed moderate mucosal disruption. Estimated blood loss was minimal. Evidence of a gastric bypass was found. A gastric pouch with a normal size was found. The staple line appeared intact. The gastrojejunal anastomosis was characterized by healthy appearing mucosa. This was traversed. The dllho-bh-lqsfxwn limb was characterized by healthy appearing mucosa. The jejunojejunal anastomosis was characterized by healthy appearing mucosa. The nmropmcq-po-evfbsyb limb was not examined as it could not be found. The excluded stomach was not examined as it could not be found. The examined jejunum was normal. The Z-line was irregular and was found 40 cm from the incisors. Biopsies were taken with a cold forceps for histology. Verification of patient identification for the specimen was done. Estimated blood loss was minimal. Impression: - Benign-appearing esophageal stenosis. Dilated. - Gastric bypass with a normal-sized pouch and intact staple line. Gastrojejunal anastomosis characterized by healthy appearing mucosa. - Normal examined jejunum. - No specimens collected. Recommendation: - Discharge patient to home. - Full liquid diet today. - Continue present medications. - Await pathology results. Procedure Code(s): --- Professional --- 90103, Esophagogastroduodenoscopy, flexible, transoral; with insertion of guide wire followed by passage of dilator(s) through esophagus over guide wire 23573, 59,51, Esophagogastroduodenoscopy, flexible, transoral; with biopsy, single or multiple CPT copyright 2021 [employer]. All rights reserved. The codes documented in this report are preliminary and upon lifeguard review may be revised to meet current compliance requirements. Moncho Carrillo DO 09/20/2023 11:09:47 AM This report has been signed electronically. Number of Addenda: 0 Note Initiated On: 09/20/2023 10:34 AM
--- NOTE | 2023-09-20 11:11 | PCM.POST.ANE ---
Anesthesia: Postop Eval I Current Vital Signs Temperature: 98.3 F Pulse Rate: 74 Blood Pressure: 110/66 Respiratory Rate: 16 Pulse Ox: 97 Oxygen Delivery Method: Room Air Assessment Airway patent: Yes Spontaneous unlabored respirations: Yes Mental status: Awake and Calm nausea: No Vomiting: No Anesthesia Complication: No Fluid Hydration Crystalloid volume administer (ml): 400 Total IV fluid infused: 400 Progress Note Anesthesia document: Postop Eval 1 completed: Yes
--- NOTE | 2023-09-20 11:27 | PCM.POSTANE2 ---
Anesthesia Postop Eval I Sum Postop Eval Completion status Anesthesia document: Postop Eval 1 completed: Yes Anesthesia Postop Eval I Summary Anesthesia Postop Eval I Summary: Anesthesia Postop Eval I: Assessment Summary Airway patent Yes 09/20/23 11:12 [email or web address] Spontaneous unlabored Yes 09/20/23 11:12 [email or web address] respirations Mental status Awake,Calm 09/20/23 11:12 [email or web address] nausea No 09/20/23 11:12 [email or web address] Vomiting No 09/20/23 11:12 [email or web address] Anesthesia Postop Eval I: Fluid Summary Crystalloid volume administer 400 09/20/23 11:12 [email or web address] (ml) Colloids volume administered ( ml) Blood Product volume administered (ml) Total IV fluid infused 400 09/20/23 11:12 [email or web address] Anesthesia Postop Eval I: Summary Notes Anesthesia Complication No 09/20/23 11:12 [email or web address] Anesthesia Complication Comment: Post-operative progress note Anesthesia: Postop Eval II Evaluation Mental status: Awake Pain Level: 0 nausea: No Vomiting: No
== END 2023-09-20 11:55 | disposition home or self-care (01) ==
LOC: EN 09:07 → AC 09:08
PROVIDERS: Visit Provider Internal Medicine Gastroenterology
PROC: 0DJ08ZZ Inspection of Upper Intestinal Tract, Via Natural or Artificial Opening Endoscopic (ICD-10-PCS; CPT 43235; principal; 2023-09-20 10:25)
DX: R13.10 Dysphagia, unspecified (principal); K22.2 Esophageal obstruction; R11.0 Nausea; K21.00 Gastro-esophageal reflux disease with esophagitis, without bleeding; Z98.84 Bariatric surgery status; K22.89 Other specified disease of esophagus; Z79.899 Other long term (current) drug therapy
CPT/HCPCS: 43248; 43239; 82962; 88305; 88312; J7120; C1769; J2405

== ENCOUNTER 2023-11-16 05:28 | Day surgery (SDC) | payer MEDICAID, SELFPAY ==
[2023-11-16] VITALS (7 sets, daily range): BP systolic 96–118; BP diastolic 58–84; PULSE 65–69; RESP 16; TEMP 36.2–36.4; O2SAT 96–99; BMI 40.4
[2023-11-16] MEDS: Lactated Ringers 1,000 ML 15 ML IV (06:05)
[2023-11-16 06:30] LABS: Bedside Glucose 134 mg/dL (74-106)
--- NOTE | 2023-11-16 06:30 | EGD_PTH ---
PATIENT: PARDEEP ALEXANDER LOC: EN U#:[id number] AGE/SX: 53/F ROOM: RE11/16/[address]: Dr. Moncho Carrillo DO : 1970 BED: DIS: 11/16/2023 SPEC #: [id number] RECD: 11/16/23 11:53 STATUS: KARINA POOLZion #: [id number] MICHAEL: 11/16/23 06:[address]: Moncho Carrillo DEPT: SURGICAL PATHOLOGY RECD BY: Sp Crenshaw ENTERED: 11/16/23 13:10 SP TYPE: EGD BIOPSY KRISTEN DR: Dr. Sneha Bowling DO Tissues: Jejunum, NOS Procedures: Surgery Specimen Level IV HEADER OPERATION: EGD with biopsy PRE-OP DIAGNOSIS: Dysphagia, GERD, nausea, history of gastric bypass TISSUE SUBMITTED: Jejunum biopsy MICROSCOPIC DIAGNOSIS Jejunum, biopsy: Fragments of small intestinal mucosa, no pathologic diagnosis. 11/19/2023 MICROSCOPIC DESCRIPTION Slides are reviewed. GROSS DESCRIPTION Received in fixative is one container labeled with the patient's name and designated Jejunum biopsy. The specimen consists of multiple irregular fragments of light manrique soft tissue that in aggregate measure 1.2 x 0.3 x 0.1 cm. The specimen is totally submitted in one cassette. 11/16/2023 TC:4 CPT:61518
--- NOTE | 2023-11-16 06:33 | PCM.PRE.AN2 ---
ASA Classification* ASA Classification ASA Classification: 2 Assessment & Plan Anesthesia* Anesthesia Assessment Anesthesia Assessment: Discussed sedation and/or anesthesia options, risks, benefits, and alternatives with patient/parents/legal guardian/POA. Questions invited. The patient/parents/legal guardian/POA seems to understand and agrees to proceed with anesthesia plan. Reviewed the physical assessment, medical history, allergy history and patient home medications list prior to surgery/procedure/anesthetic and documented any changes. Performed airway and anesthesia risk assessments. Anesthesia Type Anesthesia Type: MAC Anesthesia Focused Assessment* Temperature: 97.5 F Pulse Rate: 68 Blood Pressure: 118/84 Respiratory Rate: 16 Pulse Ox: 99 Airway Assessment Mouth opens: >3 cm Mallampati Score: II Focused Labs Anesthesia Preop lab: CBC WBC 7.4 K/mm3 (4.4-11.0) 01/30/12 13:14 RBC 4.59 M/mm3 (4.2-5.4) 01/30/12 13:14 Hgb 13.9 g.dL (12.0-15.0) 01/30/12 13:14 Hct 42.2 % (37-47) 01/30/12 13:14 Plt Count 254 K/mm3 (150-450) 01/30/12 13:14 CHEMISTRY Potassium 3.6 mmol/L (3.5-5.1) 01/30/12 13:14 Sodium 137 mmol/L (136-145) 01/30/12 13:14 BUN 11 mg/dL (7-18) 01/30/12 13:14 Creatinine 0.8 mg/dL (0.6-1.0) 01/30/12 13:14 Glucose 67 mg/dL (70-110) L 01/30/12 13:14 POC Glucose 134 mg/dL (74-106) H 11/16/23 05:56 COAG Pre-Assessment Diagnosis/Proposed Procedure Planned Operative Procedure(s): EGD Anesthesia History 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 When Was Last Pacemaker Check QUESTION #4 FULL TEXT: You/Your Family Experience fever (hyperthermia) with Anesthesia Last Oral Intake Last Oral intake: Last Oral Intake NPO since 22:00 11/16/23 06:03 Meds taken in AM with sips of Yes 11/16/23 06:03 water? 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 Female Yes 11/14/23 15:53 HX of Motion Sickness No 11/14/23 15:53 HX of N/V After Surgery No 11/14/23 15:53 Non-Smoker Yes 11/14/23 15:53 Duration of Surgery greater No 11/14/23 15:53 than 60 minutes Number of Risk Factors 2 11/14/23 15:53 PONV Score Moderate Risk 11/14/23 15:53 Height & Weight Height & Weight: Anesthesia: Height & Weight Height 5 ft 2 in 11/16/23 06:03 Weight: 100.2 kg 11/16/23 06:03 Body Mass Index (BMI) 40.4 11/16/23 06:03 Respiratory Assessment Respiratory Assessment - 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 Has anyone observed you stop breathing during sleep? STOP Results Positive 11/14/23 15:53 QUESTION #5 FULL TEXT : Do you snore loudly (louder than talking or can be heard through closed doors)? 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 Specify any problems Hx of Preganancy in last 3 N/A 11/14/23 15:53 Months Nurse Filling Out Transfusion NBUCHER 11/14/23 15:53 & Questions: Date: 11/14/23 11/14/23 15:53 Time: 15:54 11/14/23 15:53 Patient unable to answer at this time (ie. 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 Hx Now Gestational Age (in weeks): EDC: Hx Hx Para Hx Section SAB No 11/14/23 15:53 Active Medications Active Medications: Current Medications Generic Name Dose Route Start Last Admin Trade Name Freq PRN Reason Stop Dose Admin Lactated Ringer's 1,000 mls @ 15 mls/hr 11/16/23 06:00 11/16/23 06:05 IV 15 mls/hr .Q48H BERNADETTE Administration PFSH Medical History History of hiatal hernia Sleep apnea Wears glasses Anxiety Diabetes Restless legs Dietary restriction Gastric reflux Former smoker CPAP (continuous positive airway pressure) dependence Neuropathy History of echocardiogram History of stress test Hypertension Encounter for screening for malignant neoplasm of colon Home Medications ?Medication ?Instructions ?Recorded ?Last Taken ?Type alprazolam 0.25 mg tablet (Xanax) 0.5 mg PO PRN PRN Anxiety 06/08/21 11/16/23 History biotin 5,000 mcg sublingual tablet 5,000 mcg sublingual DAILY 06/08/21 09/06/23 History fluoxetine 40 mg capsule (Prozac) 80 mg PO DAILY 06/08/21 09/19/23 08:00 History gabapentin 100 mg tablet 300 mg PO TID 06/08/21 11/16/23 History hydrochlorothiazide 25 mg tablet 25 mg PO DAILY 06/08/21 09/19/23 08:00 History lisinopril 20 mg tablet 20 mg PO DAILY 06/08/21 11/16/23 History metformin 1,000 mg tablet 1,000 mg PO BID 06/08/21 09/19/23 20:00 History cetirizine 10 mg tablet 10 mg PO DAILY 01/23/23 09/19/23 History pantoprazole 20 mg tablet,delayed 20 mg PO BID 07/26/23 09/19/23 22:00 History release dulaglutide 0.75 mg/0.5 mL 0.75 mg subcut MO 09/17/23 11/05/23 History subcutaneous pen injector (Trulicity) ondansetron 4 mg disintegrating 4 mg PO Q8H PRN nausea and 10/11/23 Unknown Rx tablet vomiting #90 tabs amitriptyline 25 mg tablet 25 mg PO QHS #30 TABLETS 10/29/23 Unknown Rx diltiazem HCl 30 mg tablet 30 mg PO QHS #30 TABLETS 10/29/23 Unknown Rx Allergy/AdvReac Type Severity Reaction Status Date / Time codeine (From Allergy Rash Verified 11/16/23 05:52 Tylenol-Codeine) hydrocodone (From Vicodin) Allergy Rash Verified 11/16/23 05:52 Sulfa (Sulfonamide Allergy Rash Verified 11/16/23 05:52 Antibiotics) NSAIDS (Non-Steroidal AdvReac Other Verified 11/16/23 05:54 Anti-Inflamma Family History Brother Diabetes Heart disease Surgical History History of esophagogastroduodenoscopy (EGD) Bariatric surgery status Hx of colonoscopy History of esophagogastroduodenoscopy (EGD) Hx of hernia repair History of tonsillectomy and adenoidectomy Hx of foot surgery Hx of total hysterectomy Hx of gastric bypass Hx laparoscopic cholecystectomy Social History Smoking Status: Former smoker how long ago did patient quit smoking: quit 2012 alcohol intake: never substance use type: does not use additional social history: denies vaping, denies marijuana use, denies edible, denies aspirin use denies ibuprofen Review of Systems (Anesthesia) ROS Narrative System reviewed and no additional complaints, except as documented.
--- NOTE | 2023-11-16 06:41 | PCM.HP.BLA ---
History and Physical Date of Admission: 11/16/23 PARDEEP ALEXANDER, is a 52 F who presents to the office today for follow up. *[facility] established 04.14.21 for screening colonoscopy and intermittent esophageal dysphagia. History of Cristian-en-Y gastric bypass 2018; cholecystectomy 09.11.18 ? EGD and colonoscopy 06.13.21 Irregular Zline; small hiatal hernia; Cristian-en-y gastrojejunostomy with healthy anastomosis. Metaplasia neg. ? Colonoscopy hemorrhoids; diverticulosis. No specimens OV 09.30.21 still has intermittent dysphagia but finds PPI and gas-X helpful. Start reglan and PPI BID. OV 01.11.23 she has been having nausea followed by dysphagia with intermittent emesis following PO intake. She is not taking protonix or reglan. BM pattern is regular and without difficulty. ? EGD 01.30.23 esophageal stenosis, Savary 60F; irregular Zline; medium hiatal hernia; Cristian-en-Y with healthy anastomosis. No metaplasia ? Upper GISBFT 02.12.23 no acute/chronic abnormality. OV 02.16. feels swallowing, nausea have improved but are still present; epigastric pain continues. Admits to poor diet as she does a lot of traveling. OV 07.24.24 pt reports that N/V have improved and occur maybe once or twice a month. Pt continues to struggle with swallowing and feels like food is getting stuck in her throat. ROS Const Constitutional: Positive for fatigue and weight change (weight loss and gain ); No fever(s) ENT ENT: Positive for difficulty swallowing Cardio Cardiology: Positive for leg pain with exertion Gastro GI: Positive for bloating, difficulty swallowing, excessive flatus, nausea/dyspepsia and vomiting; No abdominal pain, belching, change in bowel habits, change in stool character, coffee ground emesis, constipation, cramping, diarrhea, heartburn, feeling full early, incontinent of stools, Vomiting blood/hematemesis, Blood in stool, loose stools, Black,tarry stools, pain with swallowing or other Musc Musculoskeletal: Positive for joint pain, back pain, joint swelling, muscle cramps, muscle weakness, numbness, tingling, Arthritis, leg pain at night and leg pain with exertion Skin Skin: No yellowing of the eye or itchy eyes Neuro Neurology: Positive for numbness, tingling and tremor(s) Psych Psychiatric: Positive for anxiety and No depression Endo Endocrine: Positive for fatigue and weight change (weight loss and gain ) Aller/Imm Allergy/Immunologic: No itchy eyes Dioni/Lymp Hematologic/Lymphatic: Positive for easy bruising; No easy bleeding Exam Const General: cooperative, healthy appearing, comfortable, no acute distress, well developed and well groomed Nutritional Appearance: overweight Orientation: alert, awake and oriented x3 HENMT Head: normocephalic and atraumatic Resp Effort & Inspection: normal respiratory effort, able to speak in complete sentences, symmetric chest movement and no cough Auscultation: Bilateral: Clear to Auscultation Cardio Rate: regular rate Rhythm: regular rhythm Heart Sounds: no murmurs Skin Other: right upper chest irreg annular lesion about 3 inch in diameter, slightly raised, mildly erythematous, mildly excoriated, no drainage, nontender, no inc. warmth Assessment and Plan Assessment and Plan (1) Dysphagia: Status: Chronic Qualifiers: Dysphagia type: esophageal phase Qualified Code(s): R13.19 - Other dysphagia Plan: She will need to undergo an upper endoscopy to evaluate upper GI tract with botox and possible dilation. She was explained alternatives, risk, benefits include not withstanding bleeding, pectin, sepsis, perforation, need for return to . She will have an ASA of 3. (2) History of Cristian-en-Y gastric bypass: Status: Chronic Comment: 2019 (3) Nausea: Status: Chronic Plan: Chronic nausea can be a side effect from gastric bypass due to removal of gastrin. I would like to get a upper GI with follow-through plus or minus gastric emptying study (4) GERD (gastroesophageal reflux disease): Status: Inactive Qualifiers: Esophagitis presence: with esophagitis Esophagitis bleeding: without hemorrhage Qualified Code(s): K21.00 - Gastro-esophageal reflux disease with esophagitis, without bleeding Plan: She is having worsening gastroesophageal reflux disease that I thought was secondary to bile induced gastritis. She underwent an upper endoscopy was discovered to have a patent wire with a normal gastric pouch. There is no ulcerations at the proximal anastomosis with distal anastomosis. Biopsies were taken throughout the small bowel and it did show mild chronic inflammation with some very small inflammation at the site of surgery. I will give her a course of Reglan therapy along with switching her PPI to Protonix therapy (5) Encounter for screening for malignant neoplasm of colon: Status: Inactive Plan: Her colonoscopy did not reveal any adenomatous polyp. She did have diverticular disease. She will need a repeat colonoscopy in 5 years. Orders: Orders EGD 07/31/23 R13.19 - Other dysphagia I have examined the patient and the H&P has been reviewed. There are no clinical changes since date of exam.
--- NOTE | 2023-11-16 07:00 | OP.CCLET_ITS ---
11/16/2023 Sneha Bowling Re : Upper GI endoscopy procedure for Belle Hamm Dear Dash This procedure was performed on Thursday, November 16, 2023. My impressions and recommendations are as follows: Impressions : - Abnormal esophageal motility, established esophageal spasm. - Small hiatal hernia. 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 - Suspected jejunal inflammation characterized by erosions and erythema. Biopsied. Recommendations : - Discharge patient to home. - Resume previous diet. - Continue present medications. - Await pathology results. My findings are described in the full procedure note, which is enclosed. If I can be of further assistance, please feel free to contact me at . Sincerely, Moncho Carrillo, 11/16/2023 6:59:58 AM This report has been signed electronically.
--- NOTE | 2023-11-16 07:00 | OP.EGD_ITS ---
Patient Name: Belle Hamm Procedure Date: 11/16/2023 6:11 AM Date of : 1970 Age: 53 Procedure: Upper GI endoscopy Indications: Epigastric abdominal pain, Functional Dyspepsia, Dysphagia, Heartburn, Suspected esophageal reflux, Failure to respond to medical treatment Providers: Moncho Carrillo DO Referring MD: Sneha Bowling Medicines: Monitored Anesthesia Care Patient Profile: This is a 53 year old female. Refer to note in patient chart for documentation of history and physical. Patient has symptoms of acute abdominal cramping, acute epigastric abdominal pain, chronic dysphagia and chronic nausea. Complications: No immediate complications. Procedure: Pre-Anesthesia Assessment: - Prior to the procedure, a History and Physical was performed, and patient medications and allergies were reviewed. The patient is competent. The risks and benefits of the procedure and the sedation options and risks were discussed with the patient. All questions were answered and informed consent was obtained. Patient identification and proposed procedure were verified by the physician in the pre-procedure area. Mental Status Examination: alert and oriented. Airway Examination: normal oropharyngeal airway and neck mobility. Respiratory Examination: clear to auscultation. CV Examination: normal. Prophylactic Antibiotics: The patient does not require prophylactic antibiotics. Prior Anticoagulants: The patient has taken no anticoagulant or antiplatelet agents except for NSAID medication. ASA Grade Assessment: III - A patient with severe systemic disease. After reviewing the risks and benefits, the patient was deemed in satisfactory condition to undergo the procedure. The anesthesia plan was to use monitored anesthesia care (MAC). Immediately prior to administration of medications, the patient was re-assessed for adequacy to receive sedatives. The heart rate, respiratory rate, oxygen saturations, blood pressure, adequacy of pulmonary ventilation, and response to care were monitored throughout the procedure. The physical status of the patient was re-assessed after the procedure. After obtaining informed consent, the endoscope was passed under direct vision. Throughout the procedure, the patient's blood pressure, pulse, and oxygen saturations were monitored continuously. The Colonoscope was introduced through the mouth, and advanced to the second part of duodenum. The upper GI endoscopy was accomplished without difficulty. The patient tolerated the procedure well. Scope In: 6:47:33 AM Scope Out: 6:53:54 AM Total Procedure Duration Time 0 hours 6 minutes 21 seconds Findings: Abnormal motility was noted in the esophagus. The cricopharyngeus was abnormal. There is spasticity of the esophageal body. The distal esophagus/lower esophageal sphincter is spastic, but gives up passage to the endoscope. Secondary peristaltic waves are noted. A small hiatal hernia was present. 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 The gastrojejunal anastomosis was characterized by ulceration. This was traversed. The pxlzj-pj-ssukznc limb was characterized by healthy appearing mucosa. The jejunojejunal anastomosis was characterized by healthy appearing mucosa. The wekrvpsq-gu-jwoyshr limb was not examined as it could not be found. The excluded stomach was not examined as it could not be found. Patchy mild inflammation, characterized by erosions and erythema was found in the jejunum. Biopsies were taken with a cold forceps for histology. Verification of patient identification for the specimen was done. Estimated blood loss was minimal. Impression: - Abnormal esophageal motility, established esophageal spasm. - Small hiatal hernia. 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 - Suspected jejunal inflammation characterized by erosions and erythema. Biopsied. Recommendation: - Discharge patient to home. - Resume previous diet. - Continue present medications. - Await pathology results. Procedure Code(s): --- Professional --- 65368, Esophagogastroduodenoscopy, flexible, transoral; with biopsy, single or multiple CPT copyright 2021 [employer]. All rights reserved. The codes documented in this report are preliminary and upon dealer sales rep review may be revised to meet current compliance requirements. Moncho Carrillo DO 11/16/2023 6:59:58 AM This report has been signed electronically. Number of Addenda: 0 Note Initiated On: 11/16/2023 6:11 AM
--- NOTE | 2023-11-16 07:04 | PCM.POST.ANE ---
Anesthesia: Postop Eval I Current Vital Signs Temperature: 97.1 F Pulse Rate: 69 Blood Pressure: 96/58 Respiratory Rate: 16 Pulse Ox: 96 Oxygen Delivery Method: Room Air Assessment Airway patent: Yes Spontaneous unlabored respirations: Yes Mental status: Awake nausea: No Vomiting: No Anesthesia Complication: No Fluid Hydration Crystalloid volume administer (ml): 400 Total IV fluid infused: 400 Progress Note Anesthesia document: Postop Eval 1 completed: Yes
--- NOTE | 2023-11-16 15:45 | PCM.POSTANE2 ---
Anesthesia Postop Eval I Sum Postop Eval Completion status Anesthesia document: Postop Eval 1 completed: Yes Anesthesia Postop Eval I Summary Anesthesia Postop Eval I Summary: Anesthesia Postop Eval I: Assessment Summary Airway patent Yes 11/16/23 07:06 [email or web address] Spontaneous unlabored Yes 11/16/23 07:06 [email or web address] respirations Mental status Awake 11/16/23 07:06 [email or web address] nausea No 11/16/23 07:06 [email or web address] Vomiting No 11/16/23 07:06 [email or web address] Anesthesia Postop Eval I: Fluid Summary Crystalloid volume administer 400 11/16/23 07:06 [email or web address] (ml) Colloids volume administered ( ml) Blood Product volume administered (ml) Total IV fluid infused 400 11/16/23 07:06 [email or web address] Anesthesia Postop Eval I: Summary Notes Anesthesia Complication No 11/16/23 07:06 [email or web address] Anesthesia Complication Comment: Post-operative progress note Anesthesia: Postop Eval II Evaluation Mental status: Awake Pain Level: 0 nausea: No Vomiting: No
== END 2023-11-16 07:34 | disposition home or self-care (01) ==
LOC: EN 05:29 → AC 05:30
PROVIDERS: Visit Provider Internal Medicine Gastroenterology
PROC: 0DJ08ZZ Inspection of Upper Intestinal Tract, Via Natural or Artificial Opening Endoscopic (ICD-10-PCS; CPT 43235; principal; 2023-11-16 06:25)
DX: K22.4 Dyskinesia of esophagus (principal); E11.40 Type 2 diabetes mellitus with diabetic neuropathy, unspecified; K44.9 Diaphragmatic hernia without obstruction or gangrene; R11.0 Nausea; I10 Essential (primary) hypertension; Z98.0 Intestinal bypass and anastomosis status; Z90.49 Acquired absence of other specified parts of digestive tract; Z98.84 Bariatric surgery status; Z79.84 Long term (current) use of oral hypoglycemic drugs; Z79.85 Long-term (current) use of injectable non-insulin antidiabetic drugs; Z79.899 Other long term (current) drug therapy; Z87.891 Personal history of nicotine dependence
CPT/HCPCS: 43239; 82962; 88305; J7120; J2405

== ENCOUNTER 2024-01-18 05:36 | Day surgery (SDC) | payer MEDICAID, SELFPAY ==
[2023-12-19 11:07] LABS: Hematocrit 37.8 % (37-47); Mean Corp Hgb Conc 31.7 g/dL (32-36); Mean Corpuscular Hgb 29.2 pg (27.0-32.0); Mean Platelet Vol. 9.2 fl (6.2-12.0); Platelet Count 256 K/mm3 (150-450); RBC Distribution Width CV 12.1 % (11.6-14.6); RBC Distribution Width SD 40.8 fl (35.1-43.9); Red Blood Count 4.11 M/mm3 (4.2-5.4)
[2023-12-19 11:31] LABS: Anion Gap 7 (5-15); BUN 11 mg/dL (7-18); BUN/Creat Ratio 11.7 RATIO (10-20); Calcium,Total 9.2 mg/dL (8.5-10.1); Chloride 102 mmol/L (98-107); Creatinine, Serum 0.94 mg/dL (0.55-1.02); EST Glomerular Filtration Rate 66 mL/min (>60); Est Glom Filt Rate - Afr Amer 80 mL/min (>60); Glucose 110 mg/dL (74-106); Potassium 3.6 mmol/L (3.5-5.1); Sodium Level 137 mmol/L (136-145)
[2024-01-18] VITALS (8 sets, daily range): BP systolic 112–139; BP diastolic 59–94; PULSE 61–95; RESP 14–18; TEMP 36.3–36.8; O2SAT 92–100; BMI 39.9
--- NOTE | 2024-01-18 | BR_PTH ---
PATIENT: PARDEEP ALEXANDER LOC: [facility] [place] U#:[id number] AGE/SX: 53/F ROOM: RE01/18/[address]: Dr. Teresa Ramsey MD : 1970 BED: DIS: 01/18/2024 SPEC #: [id number] RECD: 01/18/24 12:45 STATUS: KARINA REZion #: [id number] MICHAEL: 01/18/24 00:[address]: Teresa Ramsey DEPT: SURGICAL PATHOLOGY RECD BY: Rodrigo Etienne ENTERED: 01/21/24 07:58 SP TYPE: MAMOPLASTY OTHR DR: Dr. Sneha Bowling, DO Tissues: A - Right breast, NOS B - Left breast, NOS Procedures: Surgery Specimen Level IV HEADER OPERATION: Bilateral breast reduction PRE-OP DIAGNOSIS: Chronic shoulder pain, chronic neck pain, breast hypertrophy TISSUE SUBMITTED: A- Right breast tissue - 304gm, B- Left breast tissue - 364gm MICROSCOPIC DIAGNOSIS A. Right breast tissue, breast reduction mammoplasty: Fragments of fatty benign breast tissue. Skin - no pathologic diagnosis. B. Left breast tissue, breast reduction mammoplasty: Fragments of fatty benign breast tissue. Skin - no pathologic diagnosis. Focal microcalcifications. SJ. 01/22/2024 MICROSCOPIC DESCRIPTION Slides are reviewed. GROSS DESCRIPTION A - Received in fixative is one container labeled with the patient's name and designated Right breast tissue. The specimen consists of multiple pieces of fibroadipose tissue with a few of the pieces showing manrique-white skin, weighing in aggregate 316 gm and measuring in aggregate 18.0 x 19.0 x 3.0 cm. No skin lesion is identified. Sections reveal yellow adipose cut surfaces mixed with scant fibrous areas. No mass lesion is identified. Manager Bakery sections are submitted in six cassettes. Cassette 6 contains the skin piece. B - Received in fixative is one container labeled with the patient's name and designated Left breast tissue. The specimen consists of multiple pieces of fibroadipose tissue with a few of the pieces showing manrique-white skin, weighing in aggregate 377 gm and measuring in aggregate 20.0 x 18.0 x 4.0 cm. No skin lesion is identified. Sections reveal yellow adipose cut surfaces mixed with scant fibrous areas. No mass lesion is identified. Manager Bakery sections are submitted in six cassettes. Cassette 6 contains the skin piece. / MJ.mr 01/21/2024 TC:5 CPT:23192c5
[2024-01-18] MEDS: Lactated Ringers 1,000 ML 15 ML IV (06:24)
[2024-01-18 06:47] LABS: Bedside Glucose 116 mg/dL (74-106)
--- NOTE | 2024-01-18 07:01 | PCM.PRE.AN2 ---
ASA Classification* ASA Classification ASA Classification: 2 Assessment & Plan Anesthesia* Anesthesia Assessment Anesthesia Assessment: Discussed sedation and/or anesthesia options, risks, benefits, and alternatives with patient/parents/legal guardian/POA. Questions invited. The patient/parents/legal guardian/POA seems to understand and agrees to proceed with anesthesia plan. Reviewed the physical assessment, medical history, allergy history and patient home medications list prior to surgery/procedure/anesthetic and documented any changes. Performed airway and anesthesia risk assessments. Anesthesia Type Anesthesia Type: General Anesthesia Focused Assessment* Temperature: 98.3 F Pulse Rate: 61 Blood Pressure: 112/59 Respiratory Rate: 18 Pulse Ox: 100 Airway Assessment Mouth opens: >3 cm Mallampati Score: II Focused Labs Anesthesia Preop lab: CBC WBC 6.0 K/mm3 (4.4-11.0) 12/19/23 10:40 RBC 4.11 M/mm3 (4.2-5.4) L 12/19/23 10:40 Hgb 12.0 g/dL (12.0-15.0) 12/19/23 10:40 Hct 37.8 % (37-47) 12/19/23 10:40 Plt Count 256 K/mm3 (150-450) 12/19/23 10:40 CHEMISTRY Potassium 3.6 mmol/L (3.5-5.1) 12/19/23 10:40 Sodium 137 mmol/L (136-145) 12/19/23 10:40 BUN 11 mg/dL (7-18) 12/19/23 10:40 Creatinine 0.94 mg/dL (0.55-1.02) 12/19/23 10:40 Glucose 110 mg/dL (74-106) H 12/19/23 10:40 POC Glucose 116 mg/dL (74-106) H 01/18/24 06:13 COAG Pre-Assessment Diagnosis/Proposed Procedure Planned Operative Procedure(s): (B) Bilateral breast reduction Anesthesia History 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 When Was Last Pacemaker Check QUESTION #4 FULL TEXT: You/Your Family Experience fever (hyperthermia) with Anesthesia Last Oral Intake Last Oral intake: Last Oral Intake NPO since 00:00 01/18/24 06:21 Meds taken in AM with sips of No 01/18/24 06:21 water? Meds patient instructed to take am of surgery PONV PONV - senior mechanical development engineer: PONV - senior mechanical development engineer Female Yes 01/04/24 14:20 HX of Motion Sickness No 01/04/24 14:20 HX of N/V After Surgery No 01/04/24 14:20 Non-Smoker Yes 01/04/24 14:20 Duration of Surgery greater No 01/04/24 14:20 than 60 minutes Number of Risk Factors 2 01/04/24 14:20 PONV Score Moderate Risk 01/04/24 14:20 Height & Weight Height & Weight: Anesthesia: Height & Weight Height 5 ft 2 in 01/18/24 06:21 Weight: 99 kg 01/18/24 06:21 Body Mass Index (BMI) 39.9 01/18/24 06:21 Respiratory Assessment Respiratory Assessment - senior mechanical development engineer: Respiratory Tract Infection Hx - senior mechanical development engineer Hx Respiratory Tract Infection No 01/04/24 14:20 STOP Sleep Apnea STOP Sleep Apnea - senior mechanical development engineer: STOP Sleep Apnea - senior mechanical development engineer Hx Hypertension No 01/04/24 14:20 Hx Sleep Apnea Yes 01/04/24 14:20 CPAP Yes 01/04/24 14:20 BIPAP No 01/04/24 14:20 Do you snore loudly (louder than talking or can be heard Do you often feel tired/ fatigued/ sleepy during daytime? Has anyone observed you stop breathing during sleep? STOP Results Positive 01/04/24 14:20 QUESTION #5 FULL TEXT : Do you snore loudly (louder than talking or can be heard through closed doors)? 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 Specify any problems Hx of Preganancy in last 3 No 01/04/24 14:20 Months Nurse Filling Out Transfusion VLEHMAN 01/04/24 14:20 & Questions: Date: 01/04/24 01/04/24 14:20 Time: 14:25 01/04/24 14:20 Patient unable to answer at this time (ie. confused, unrespo /Reproduction History /Reproductive History - senior mechanical development engineer: /Reproductive Hx- senior mechanical development engineer Hx Now Gestational Age (in weeks): EDC: Hx Hx Para Hx Section SAB No 01/04/24 14:20 Active Medications Active Medications: Current Medications Generic Name Dose Route Start Last Admin Trade Name Freq PRN Reason Stop Dose Admin Clindamycin Phosphate 900 mg in 50 mls @ 75 mls/hr 01/18/24 07:30 Cleocin IV 01/18/24 08:09 PREOP ONE Lactated Ringer's 1,000 mls @ 15 mls/hr 01/18/24 06:15 01/18/24 06:24 IV 01/23/24 19:34 15 mls/hr .Q48H BERNADETTE Administration Protocol PFSH Medical History History of hiatal hernia Sleep apnea Wears glasses Anxiety Diabetes Restless legs Dietary restriction Gastric reflux Former smoker CPAP (continuous positive airway pressure) dependence Neuropathy History of echocardiogram History of stress test Hypertension Encounter for screening for malignant neoplasm of colon Home Medications ?Medication ?Instructions ?Recorded ?Last Taken ?Type alprazolam 0.25 mg tablet (Xanax) 0.5 mg PO PRN PRN Anxiety 06/08/21 11/16/23 History fluoxetine 40 mg capsule (Prozac) 80 mg PO DAILY 06/08/21 09/19/23 08:00 History gabapentin 100 mg tablet 300 mg PO TID 06/08/21 11/16/23 History hydrochlorothiazide 25 mg tablet 25 mg PO DAILY 06/08/21 09/19/23 08:00 History lisinopril 20 mg tablet 20 mg PO DAILY 06/08/21 11/16/23 History metformin 1,000 mg tablet 1,000 mg PO BID 06/08/21 09/19/23 20:00 History cetirizine 10 mg tablet 10 mg PO DAILY 01/23/23 09/19/23 History pantoprazole 20 mg tablet,delayed 20 mg PO BID 07/26/23 09/19/23 22:00 History release ondansetron 4 mg disintegrating 4 mg PO Q8H PRN nausea and 10/11/23 Unknown Rx tablet vomiting #90 tabs pantoprazole 40 mg tablet,delayed 40 mg PO BID 2 months #120 tabs 11/29/23 Unknown Rx release amitriptyline 25 mg tablet 25 mg PO QHS #30 TABLETS 11/30/23 Unknown Rx buspirone 5 mg tablet 5 mg PO TID 12/19/23 Unknown History diltiazem HCl 30 mg tablet 30 mg PO QHS #30 TABLETS 12/31/23 Unknown Rx cephalexin 500 mg capsule 500 mg PO BID #14 caps 01/02/24 01/17/24 Rx biotin 2,500 mcg capsule 5 mg PO DAILY 01/04/24 Unknown History Allergy/AdvReac Type Severity Reaction Status Date / Time codeine (From Allergy Rash Verified 01/18/24 06:19 Tylenol-Codeine) hydrocodone (From Vicodin) Allergy Rash Verified 01/18/24 06:19 Sulfa (Sulfonamide Allergy Rash Verified 01/18/24 06:19 Antibiotics) NSAIDS (Non-Steroidal AdvReac Other Verified 01/18/24 06:19 Anti-Inflamma Family History Brother Diabetes Heart disease Surgical History History of esophagogastroduodenoscopy (EGD) Bariatric surgery status Hx of colonoscopy History of esophagogastroduodenoscopy (EGD) Hx of hernia repair History of tonsillectomy and adenoidectomy Hx of foot surgery Hx of total hysterectomy Hx of gastric bypass Hx laparoscopic cholecystectomy Social History Smoking Status: Former smoker how long ago did patient quit smoking: quit 2012 alcohol intake: never substance use type: does not use additional social history: denies vaping, denies marijuana use, denies edible, denies aspirin use denies ibuprofen Review of Systems (Anesthesia) ROS Narrative System reviewed and no additional complaints, except as documented.
--- NOTE | 2024-01-18 07:14 | HP.PCM_ITS ---
History and Physical Date of Admission: 01/18/24 The patient presents for bilateral breast reduction. She is marked in the pre- op area. Informed consent obtained for bilateral breast reduction. There are no changes to the H&P dated 01/03/24. Assessment & Plan Assessment/Plan (1) Chronic shoulder pain: (2) Chronic neck pain: (3) Breast hypertrophy: PLAN: Plan Pt for bilateral breast reduction
[2024-01-18] MEDS: Clindamycin 900 MG/50 ML BAG 75 MG IV (07:30)
[2024-01-18] MEDS: EPINEPHrine Nasal 0.1% 30 ML Bottle NASAL (08:04)
[2024-01-18] MEDS: Methylene Blue 1% 100 MG/10 ML VIAL (08:04)
[2024-01-18] MEDS: Gentamicin 80 MG/2 ML Vial (08:04)
[2024-01-18] MEDS: Bupivacaine 0.25% 30 ML Vial (12:45)
--- NOTE | 2024-01-18 12:55 | EX.PCM.DISCH ---
Discharge Instructions Dressing / Incision Additional Dressing/Incision Instructions:: Follow the instructions given in the office. Keep your back elevated to reduce swelling and bruising. Follow Up Care Please Follow Up With: Teresa Ramsey MD When: Next week Test Results: Test results from this visit will be discussed in further detail at your follow-up appointment, if applicable. Discharge Plan Admission Attending Provider: Teresa Ramsey Primary Care Provider: Sneha Bowling Instructions Print Language: Vietnamese Discharge Orders/Prescriptions Prescriptions: No Action buspirone 5 mg tablet 5 mg PO TID cephalexin 500 mg capsule 500 mg PO BID Qty: 14 0RF fluoxetine [Prozac] 40 mg Capsule 80 mg PO DAILY lisinopril 20 mg Tablet 20 mg PO DAILY alprazolam [Xanax] 0.25 mg Tablet 0.5 mg PO PRN PRN (Reason: Anxiety) metformin 1,000 mg Tablet 1,000 mg PO BID hydrochlorothiazide 25 mg Tablet 25 mg PO DAILY gabapentin 100 mg Tablet 300 mg PO TID cetirizine 10 mg tablet 10 mg PO DAILY Patient Comments: TAKE 1 TABLET BY MOUTHiONCE DAILY pantoprazole 20 mg tablet,delayed release (DR/EC) 20 mg PO BID biotin 2,500 mcg capsule 5 mg PO DAILY ondansetron 4 mg tablet,disintegrating 4 mg PO Q8H PRN (Reason: nausea and vomiting) Qty: 90 0RF pantoprazole 40 mg tablet,delayed release (DR/EC) 40 mg PO BID 60 Days Qty: 120 0RF amitriptyline 25 mg tablet 25 mg PO QHS Qty: 30 2RF diltiazem HCl 30 mg tablet 30 mg PO QHS Qty: 30 0RF Referrals / Follow Up: Sneha Bowling DO [Primary Care Provider] - Disposition Disposition (needs filled in before D/C Order can be placed): Home, Self Care
--- NOTE | 2024-01-18 12:59 | PCM.OPRPT ---
Problems Associated Problem List Diagnoses (1) Chronic shoulder pain: (2) Chronic neck pain: (3) Breast hypertrophy: Operative Report (Standard) Operative Information Surgery/Procedure Performed: Bilateral breast reduction (right?304 g; left?364 g) Surgeon: Teresa Ramsey Date of Procedure: 01/18/24 Procedure Start Time: 08:04 Procedure Stop Time: 12:50 Pre-Operative Diagnosis: Bilateral mammary hypertrophy Chronic neck and back pain Post-Operative Diagnosis: The same Select all DRAINS/GRAFTS/IMPLANTS that apply: None Type of Anesthesia: General Estimated Blood Loss: 50 cc Specimen collected: Yes Description of specimen(s) removed: Bilateral breast tissue Description of surgery: The patient presents today for bilateral breast reduction due to chronic neck and back pain and breast hypertrophy. The procedure had been thoroughly reviewed with the patient and informed consent obtained. No guarantees as to the final size is made. The potential risks and complications of surgery were reviewed which include but are not exclusive of bleeding, infection, pain, numbness, asymmetry, scar tissue, skin necrosis, the need for further surgery, DVT, and even . She is marked in the preop holding area prior to surgery. The patient is brought to the operating room and placed under general anesthesia in the supine position. Care is taken to pad all pressure points, insert a Soriano catheter, a warming blanket, and sequential compression stockings. The breasts are prepped and draped in the usual sterile fashion. We initially began with incising the premarked incisions. Following this, the pedicle is de-epithelialized. The medial and lateral inferior aspects of the breast are removed using argon coagulation. Following this, the pedicle from the upper flap and dissection continued cephalad maintaining the flap at least 2 cm in thickness. Following this, the pedicle was trimmed in order to allow to comfortably fit beneath the upper flap. All tissue is passed off the operative field to be weighed and sent down to pathology. The wound is irrigated with antibiotic solution and checked for meticulous hemostasis. After this, the breast is tacked together using skin clips and silk suture. With a satisfactory size and shape noted, the incisions are closed. Vicryl sutures are initially placed along the inframammary crease to tack this together. Following this, a 3-0 STRATAFIX suture is used to approximate the incisions in 3 layers. Approximately 4-1/2 cm above the inframammary crease, the nipple areola is brought out through an opening. The nipple areola is then tacked in place using interrupted nylon sutures. All incisions are then approximated with a subcuticular strata fix suture. The identical procedure was performed on the opposite side. The incisions are then injected with quarter percent plain Marcaine. Xeroform is applied to the incisions followed by fluff gauze and she is placed in a front fastening bra that she has provided. She tolerated the procedure well was taken to the recovery area in an awake and stable condition. Needle and sponge counts are correct. Surgical Findings: Hypertrophied breast tissue Eligibility Manager museum exhibit technician: Yes Cane Flume Feeding Machine Operator: Yuan Almeida Tasks completed by licensed loan officer assistant: Opening & closing and Retracting Complications Complications: No Admit VTE Documentation VTE Mechan Device Prophylaxis: SCD's
--- NOTE | 2024-01-18 13:04 | PCM.POST.ANE ---
Anesthesia: Postop Eval I Current Vital Signs Temperature: 97.3 F Pulse Rate: 92 Blood Pressure: 139/94 Respiratory Rate: 14 Pulse Ox: 94 Oxygen Delivery Method: Simple Mask Oxygen Flow Rate (L/min): 6 Assessment Airway patent: Yes Spontaneous unlabored respirations: Yes Mental status: Awake nausea: No Vomiting: No Anesthesia Complication: No Fluid Hydration Crystalloid volume administer (ml): 2,000 Total IV fluid infused: 2,000 Progress Note Anesthesia document: Postop Eval 1 completed: Yes
--- NOTE | 2024-01-18 16:46 | POSTOPAN2_ITS ---
Anesthesia Postop Eval I Sum Postop Eval Completion status Anesthesia document: Postop Eval 1 completed: Yes Anesthesia Postop Eval I Summary Anesthesia Postop Eval I Summary: Anesthesia Postop Eval I: Assessment Summary Airway patent Yes 01/18/24 13:05 WEIGHER [email or web address] Spontaneous unlabored Yes 01/18/24 13:05 WEIGHER AND [email or web address] respirations Mental status Awake 01/18/24 13:05 WEIGHER AND [email or web address] nausea No 01/18/24 13:05 WEIGHER AND [email or web address] Vomiting No 01/18/24 13:05 WEIGHER [email or web address] Anesthesia Postop Eval I: Fluid Summary Crystalloid volume administer 2,000 01/18/24 13:05 WEIGHER [email or web address] (ml) Colloids volume administered ( ml) Blood Product volume administered (ml) Total IV fluid infused 2,000 01/18/24 13:05 WEIGHER [email or web address] Anesthesia Postop Eval I: Summary Notes Anesthesia Complication No 01/18/24 13:05 WEIGHER AND [email or web address] Anesthesia Complication Comment: Post-operative progress note Anesthesia: Postop Eval II Evaluation Mental status: Awake and Calm Pain Level: 2 nausea: No Vomiting: No Complications Anesthesia Complication: No
--- NOTE | 2024-01-18 16:46 | PCM.POSTANE2 ---
Anesthesia Postop Eval I Sum Postop Eval Completion status Anesthesia document: Postop Eval 1 completed: Yes Anesthesia Postop Eval I Summary Anesthesia Postop Eval I Summary: Anesthesia Postop Eval I: Assessment Summary Airway patent Yes 01/18/24 13:05 PAYROLL ASSISTANT.HBARR Spontaneous unlabored Yes 01/18/24 13:05 PAYROLL ASSISTANT.HBARR respirations Mental status Awake 01/18/24 13:05 PAYROLL ASSISTANT.HBARR nausea No 01/18/24 13:05 PAYROLL ASSISTANT.HBARR Vomiting No 01/18/24 13:05 PAYROLL ASSISTANT.HBARR Anesthesia Postop Eval I: Fluid Summary Crystalloid volume administer 2,000 01/18/24 13:05 PAYROLL ASSISTANT.HBARR (ml) Colloids volume administered ( ml) Blood Product volume administered (ml) Total IV fluid infused 2,000 01/18/24 13:05 PAYROLL ASSISTANT.HBARR Anesthesia Postop Eval I: Summary Notes Anesthesia Complication No 01/18/24 13:05 PAYROLL ASSISTANT.HBARR Anesthesia Complication Comment: Post-operative progress note Anesthesia: Postop Eval II Evaluation Mental status: Awake and Calm Pain Level: 2 nausea: No Vomiting: No Complications Anesthesia Complication: No
== END 2024-01-18 15:53 | disposition home or self-care (01) ==
LOC: SDC 05:39 → AC 05:40
PROVIDERS: Referring Provider Plastic Surgery; Visit Provider Plastic Surgery
PROC: 0H0U0ZZ Alteration of Left Breast, Open Approach (ICD-10-PCS; CPT 19318; principal; 2024-01-18 07:15)
DX: N62 Hypertrophy of breast (principal); E11.40 Type 2 diabetes mellitus with diabetic neuropathy, unspecified; N64.81 Ptosis of breast; M54.2 Cervicalgia; M25.519 Pain in unspecified shoulder; G89.29 Other chronic pain; I10 Essential (primary) hypertension; K21.9 Gastro-esophageal reflux disease without esophagitis; Z98.84 Bariatric surgery status; Z79.84 Long term (current) use of oral hypoglycemic drugs; Z79.899 Other long term (current) drug therapy; Z87.891 Personal history of nicotine dependence
CPT/HCPCS: 19318; 00402; 36415; 80048; 82962; 85027; 88305; J7120; J2405

== ENCOUNTER → 2024-02-20 | Outpatient (CLI) | payer MEDICAID, SELFPAY ==
--- NOTE | 2024-02-20 10:03 | NM_ITS ---
NAME: Belle Hamm PROCEDURE: NM Gastric Emptying Study (solid, liquid or both) ACCESSION NUMBER: [id number] CLINICAL HISTORY: nausea INDICATION: Nausea COMPARISON: None. TECHNIQUE: A nuclear medicine Gastric Emptying Scan was obtained following oral administration of 1.1 mCi of sulfur colloid contained in oatmeal. Axial images in the anterior and posterior projections were obtained at 60 minutes, 120 minutes and 240 minutes. The percentage of gastric emptying at each time frame was calculated. FINDINGS: There is radiopharmaceutical uptake seen in the stomach with small bowel activity seen within 60 minutes. Uptake calculated as follows: 60 minutes = 17 % (normal = 30-90 %) NM/Gastric Emptying Study IMPRESSION: Rapid gastric emptying Electronically Signed: Abiodun Norris MD at 13:43 EST ,
== END | disposition home or self-care (01) ==
LOC: NM 10:00
PROVIDERS: Referring Provider Student in an Organized Health Care Education/Training Program; Visit Provider Student in an Organized Health Care Education/Training Program
DX: R11.0 Nausea (principal)
CPT/HCPCS: 78264; A9541

== ENCOUNTER 2024-08-14 08:24 | Day surgery (SDC) | payer MEDICAID, SELFPAY ==
[2024-08-14] MEDS: Lactated Ringers 1,000 ML 15 ML IV (08:55)
--- NOTE | 2024-08-14 08:55 | PRE.ANES_ITS ---
ASA Classification* ASA Classification ASA Classification: 2 Assessment & Plan Anesthesia* Anesthesia Assessment Anesthesia Assessment: Discussed sedation and/or anesthesia options, risks, benefits, and alternatives with patient/parents/legal guardian/POA. Questions invited. The patient/parents/legal guardian/POA seems to understand and agrees to proceed with anesthesia plan. Reviewed the physical assessment, medical history, allergy history and patient home medications list prior to surgery/procedure/anesthetic and documented any changes. Performed airway and anesthesia risk assessments. Anesthesia Type Anesthesia Type: MAC Anesthesia Focused Assessment* Airway Assessment Mouth opens: >3 cm Mallampati Score: II Labs Anesthesia Preop lab: CBC WBC 6.0 K/mm3 (4.4-11.0) 12/19/23 10:40 12/19/23 RBC 4.11 M/mm3 (4.2-5.4) L 12/19/23 10:40 12/19/23 Hgb 12.0 g/dL (12.0-15.0) 12/19/23 10:40 12/19/23 Hct 37.8 % (37-47) 12/19/23 10:40 12/19/23 Plt Count 256 K/mm3 (150-450) 12/19/23 10:40 12/19/23 CHEMISTRY Potassium 3.6 mmol/L (3.5-5.1) 12/19/23 10:40 12/19/23 Sodium 137 mmol/L (136-145) 12/19/23 10:40 12/19/23 BUN 11 mg/dL (7-18) 12/19/23 10:40 12/19/23 Creatinine 0.94 mg/dL (0.55-1.02) 12/19/23 10:40 12/19/23 Glucose 110 mg/dL (74-106) H 12/19/23 10:40 12/19/23 POC Glucose 116 mg/dL (74-106) H 01/18/24 06:13 01/18/24 COAG Pre-Assessment Diagnosis/Proposed Procedure Planned Operative Procedure(s): COLONOSCOPY, EGD Anesthesia History Anesthesia History - principal network architect: Anesthesia History - principal network architect Hx Hospitalization No 08/11/24 15:22 Any Problems With Anesthesia No 08/11/24 15:22 Cholinesterase deficiency No 08/11/24 15:22 You/Your Family Experience No 08/11/24 15:22 fever (hyperthermia) with Relationship Recent Exposure to Contagious No 01/18/24 06:21 Disease Does patient have nerve No 08/11/24 15:22 stimulator Patient instructed to have device shut off --Does patient have Pacemaker or ICD? When Was Last Pacemaker Check QUESTION #4 FULL TEXT: You/Your Family Experience fever (hyperthermia) with Anesthesia Last Oral Intake Last Oral intake: Last Oral Intake NPO since Meds taken in AM with sips of water? Meds patient instructed to take am of surgery PONV PONV - principal network architect: PONV - principal network architect Female Yes 08/11/24 15:22 HX of Motion Sickness No 08/11/24 15:22 HX of N/V After Surgery No 08/11/24 15:22 Non-Smoker Yes 08/11/24 15:22 Duration of Surgery greater No 08/11/24 15:22 than 60 minutes Number of Risk Factors 2 08/11/24 15:22 PONV Score Moderate Risk 08/11/24 15:22 Height & Weight Height & Weight: Anesthesia: Height & Weight Height 5 ft 2 in 04/02/24 09:05 Respiratory Assessment Respiratory Assessment - principal network architect: Respiratory Tract Infection Hx - principal network architect Hx Respiratory Tract Infection No 08/11/24 15:22 STOP Sleep Apnea STOP Sleep Apnea - principal network architect: STOP Sleep Apnea - principal network architect Hx Hypertension Yes: CONTROLLED WITH MEDS 08/11/24 15:22 Hx Sleep Apnea Yes 08/11/24 15:22 CPAP Yes 08/11/24 15:22 BIPAP No 08/11/24 15:22 Do you snore loudly (louder than talking or can be heard Do you often feel tired/ fatigued/ sleepy during daytime? Has anyone observed you stop breathing during sleep? STOP Results Positive 08/11/24 15:22 QUESTION #5 FULL TEXT : Do you snore loudly (louder than talking or can be heard through closed doors)? 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 Specify any problems Hx of Preganancy in last 3 No 08/11/24 15:22 Months Nurse Filling Out Transfusion [email or web address] 08/11/24 15:22 & Questions: Date: 08/11/24 08/11/24 15:22 Time: 15:08/11/24 15:22 Patient unable to answer at this time (ie. confused, unrespo /Reproduction History /Reproductive History - principal network architect: /Reproductive Hx- principal network architect Hx Now No 08/11/24 15:22 Gestational Age (in weeks): EDC: Hx Hx Para Hx Section SAB No 08/11/24 15:22 Active Medications Active Medications: Current Medications Generic Name Dose Route Start Last Admin Trade Name Freq PRN Reason Stop Dose Admin Lactated Ringer's 1,000 mls @ 15 mls/hr 08/14/24 08:30 IV .Q48H BERNADETTE PFSH Medical History Alcohol use History of hiatal hernia Sleep apnea Wears glasses Anxiety Diabetes Restless legs Dietary restriction Gastric reflux Former smoker CPAP (continuous positive airway pressure) dependence Neuropathy History of echocardiogram History of stress test Hypertension Encounter for screening for malignant neoplasm of colon Home Medications ?Medication ?Instructions ?Recorded ?Last Taken ?Type alprazolam 0.25 mg tablet (Xanax) 0.5 mg PO PRN PRN An xiety 06/08/21 11/16/23 History fluoxetine 40 mg capsule (Prozac) 80 mg PO DAILY 06/0809/19/23 08:00 History gabapentin 100 mg tablet 300 mg PO TID 06/08/2111/15 History hydrochlorothiazide 25 mg tablet 25 mg PO DAILY 09/19/23 08:00 History metformin 1,000 mg tablet 1,000 mg PO BID 06/08/21 20:00 History cetirizine 10 mg tablet 10 mg PO DAILY 01/23/2309/02 History pantoprazole 20 mg tablet,delayed 20 mg PO BID 4 09/19/23 22:00 History release ondansetron 4 mg disintegrating 4 mg PO Q8H PRN nausea and 10/11/23 Unknown Rx tablet vomiting #90 tabs biotin 2,500 mcg capsule 5 mg PO DAILY 01/04/24 Unkno wn History bisacodyl 5 mg tablet,delayed 20 mg (4 x 5 mg) PO ONCE #4 tabs 03/12/24 Unknown Rx release (Dulcolax (bisacodyl)) ferrous sulfate 325 mg (65 mg 325 mg PO QDAY 03/12/24 08/11/24 History iron) tablet smujfa-icrbbppd-yjywmfh 3 cap PO QAC #300 caps 03/12 Unknown Rx 36,000-114,000-180,000 unit capsule,delay rel (Creon) polyethylene glycol 3350 17 238 g PO ONCE #238 grams 0 03/12/24 Unknown Rx gram/dose oral powder (Miralax) potassium chloride 10 mEq 10 meq PO BID 03/12/24 Unkno wn History capsule,extended release folic acid 1 mg tablet 1 mg PO DAILY #30 TABLETS Unknown Rx mecobalamin (vitamin B12) 500 mcg 500 mcg PO DAILY #30 tabs 08/06/24 Unknown Rx chewable tablet cholecalciferol (vitamin D3) 10 10 mcg PO QDAY #30 cap s 08/08/24 Unknown Rx mcg (400 unit) capsule losartan 25 mg tablet 25 mg PO DAILY 08/11/24 Unkn own History Allergy/AdvReac Type Severity Reaction Status Date / Time codeine (From Allergy Rash Verified 08/14/24 08:55 Tylenol-Codeine) hydrocodone (From Vicodin) Allergy Rash Verified 08/14/24 08:55 Sulfa (Sulfonamide Allergy Rash Verified 08/14/24 08:55 Antibiotics) NSAIDS (Non-Steroidal AdvReac Other Verified 08/14/24 08:55 Anti-Inflamma Family History Brother Diabetes Heart disease Surgical History H/O bilateral breast reduction surgery History of esophagogastroduodenoscopy (EGD) Bariatric surgery status Hx of colonoscopy History of esophagogastroduodenoscopy (EGD) Hx of hernia repair History of tonsillectomy and adenoidectomy Hx of foot surgery Hx of total hysterectomy Hx of gastric bypass Hx laparoscopic cholecystectomy Social History Smoking Status: Former smoker how long ago did patient quit smoking: quit 2012 alcohol intake: never substance use type: does not use additional social history: denies vaping, denies marijuana use, denies edible, denies aspirin use denies ibuprofen Review of Systems (Anesthesia) ROS Narrative System reviewed and no additional complaints, except as documented.
[2024-08-14 08:58] VITALS: BP 121/83; PULSE 57; RESP 18; TEMP 36.6; O2SAT 100; BMI 39.9
[2024-08-14 09:26] LABS: Bedside Glucose 138 mg/dL (74-106)
--- NOTE | 2024-08-14 09:45 | EGD_PTH ---
PATIENT: PARDEEP ALEXANDER LOC: [facility] U#:[id number] AGE/SX: 54/F ROOM: RE08/14/[address]: Dr. Moncho Carrillo DO : 1970 BED: DIS: 08/14/2024 SPEC #: [id number] RECD: 08/14/24 12:54 STATUS: KARINA REZion #: [id number] MICHAEL: 08/14/24 09:[address]: Moncho Carrillo DEPT: SURGICAL PATHOLOGY RECD BY: Tony Pierce ENTERED: 08/14/24 14:39 SP TYPE: EGD BIOPSY KRISTEN DR: Dr. Sneha Bowlnig DO Tissues: A - Esophagus, NOS B - COLON BIOPSY C - Ileum, NOS Procedures: Surgery Specimen Level IV HEADER OPERATION: Colonoscopy, EGD and biopsy PRE-OP DIAGNOSIS: Dysphagia, personal history of colon polyps TISSUE SUBMITTED: A- Distal esophagus biopsy, B- Anastomosis site, C- Terminal ileum biopsy MICROSCOPIC DIAGNOSIS A. Esophagus, distal, biopsy: Columnar mucosa, negative for goblet cell metaplasia. B. Anastomotic site (nos), biopsy: Gastric and small intestinal mucosa with no specific pathologic change. C. Terminal ileum, biopsy: Normal villous morphology with no specific pathologic change. MICROSCOPIC DESCRIPTION Slides are reviewed. GROSS DESCRIPTION Received in 3 formalin containers labeled the patient's name and date of . Designated as: A. Distal esophagus BX are 2 manrique tissue fragments, <0.1 cm and 0.5 cm. Entirely submitted in 1 cassette. Smallest fragment may not survive processing. B. Anastomosis site are 2 manrique tissue fragments, <0.1 cm and 0.5 cm. Entirely submitted in 1 cassette. Smallest fragment may not survive processing. C. BX terminal ileum are 3 manrique tissue fragments, <0.1 cm to 0.5 cm. Entirely submitted in 1 cassette. Smallest fragment may not survive processing. [facility] [place] 08/14/2024 CPT:78028o4
--- NOTE | 2024-08-14 10:00 | PCM.HP.STD ---
HPI - General General Date of Admission: 08/14/24 Date of Service: 08/14/24 Chief Complaint: Dysphagia and personal history of polyps HPI Narrative *[facility] established 04.14.21 for screening colonoscopy and intermittent esophageal dysphagia. History of Cristian-en-Y gastric bypass 2018; cholecystectomy 09.11.18 ? EGD and colonoscopy 06.13.21 Irregular Zline; small hiatal hernia; Cristian-en-y gastrojejunostomy with healthy anastomosis. Metaplasia neg. ? Colonoscopy hemorrhoids; diverticulosis. No specimens OV 09.30.21 still has intermittent dysphagia but finds PPI and gas-X helpful. Start reglan and PPI BID. OV 01.11.23 she has been having nausea followed by dysphagia with intermittent emesis following PO intake. She is not taking protonix or reglan. BM pattern is regular and without difficulty. ? EGD 01.30.23 esophageal stenosis, Savary 60F; irregular Zline; medium hiatal hernia; Cristian-en-Y with healthy anastomosis. No metaplasia ? Upper GISBFT 02.12.23 no acute/chronic abnormality. OV 02.16. feels swallowing, nausea have improved but are still present; epigastric pain continues. Admits to poor diet as she does a lot of traveling. OV 07.24.24 pt reports that N/V have improved and occur maybe once or twice a month. Pt continues to struggle with swallowing and feels like food is getting stuck in her throat. EGD 09.20.23 Benign-appearing esophageal stenosis. Dilated. Gastric bypass with a normal-sized pouch and intact staple line. Gastrojejunal anastomosis characterized by healthy appearing mucosa. Normal examined jejunum. No specimens collected. EGD 11.16.23 Abnormal esophageal motility, established esophageal spasm. Small hiatal hernia. Cristian-en-Y gastrojejunostomy with gastrojejunal anastomosis characterized by ulceration. Suspected jejunal inflammation characterized by erosions and erythema. Biopsied. GET 24 rapid emptying OV 1.8.25 pt reports that she was recently diagnosed with borderline anemia and is seeing a package sealer through . Pt reports nausea once a week. Pt would like more information regarding dumping syndrome. [facility] Medical History (Updated 08/14/24 @ 10:[address] Ivan Friend, DO) Dysphagia Alcohol use History of hiatal hernia Sleep apnea Wears glasses Anxiety Diabetes Restless legs Dietary restriction Gastric reflux Former smoker CPAP (continuous positive airway pressure) dependence Neuropathy History of echocardiogram History of stress test Hypertension Encounter for screening for malignant neoplasm of colon Home Medications ?Medication ?Instructions ?Recorded ?Last Taken ?Type alprazolam 0.25 mg tablet (Xanax) 0.5 mg PO PRN PRN Anxiety 06/08/21 08/13/24 History fluoxetine 40 mg capsule (Prozac) 80 mg PO DAILY 06/08/21 08/13/24 History gabapentin 100 mg tablet 300 mg PO TID 06/08/21 08/13/24 History hydrochlorothiazide 25 mg tablet 25 mg PO DAILY 06/08/21 08/13/24 History metformin 1,000 mg tablet 1,000 mg PO BID 06/08/21 08/13/24 History cetirizine 10 mg tablet 10 mg PO DAILY 01/23/23 08/13/24 History pantoprazole 20 mg tablet,delayed 20 mg PO BID 07/26/23 08/13/24 History release ondansetron 4 mg disintegrating 4 mg PO Q8H PRN nausea and 10/11/23 08/12/24 Rx tablet vomiting #90 tabs biotin 2,500 mcg capsule 5 mg PO DAILY 01/04/24 08/13/24 History bisacodyl 5 mg tablet,delayed 20 mg (4 x 5 mg) PO ONCE #4 tabs 03/12/24 08/13/24 Rx release (Dulcolax (bisacodyl)) ferrous sulfate 325 mg (65 mg 325 mg PO QDAY 03/12/24 08/11/24 History iron) tablet xagjsm-npsmhyqj-vqciltg 3 cap PO QAC #300 caps 03/12/24 08/12/24 Rx 36,000-114,000-180,000 unit capsule,delay rel (Creon) polyethylene glycol 3350 17 238 g PO ONCE #238 grams 03/12/24 08/14/24 Rx gram/dose oral powder (Miralax) potassium chloride 10 mEq 10 meq PO BID 03/12/24 08/13/24 History capsule,extended release folic acid 1 mg tablet 1 mg PO DAILY #30 TABLETS 07/03/24 08/13/24 Rx mecobalamin (vitamin B12) 500 mcg 500 mcg PO DAILY #30 tabs 08/06/24 08/13/24 Rx chewable tablet cholecalciferol (vitamin D3) 10 10 mcg PO QDAY #30 caps 08/08/24 08/13/24 Rx mcg (400 unit) capsule losartan 25 mg tablet 25 mg PO DAILY 08/11/24 08/13/24 History Allergy/AdvReac Type Severity Reaction Status Date / Time codeine (From Allergy Rash Verified 08/14/24 08:55 Tylenol-Codeine) hydrocodone (From Vicodin) Allergy Rash Verified 08/14/24 08:55 Sulfa (Sulfonamide Allergy Rash Verified 08/14/24 08:55 Antibiotics) NSAIDS (Non-Steroidal AdvReac Other Verified 08/14/24 08:55 Anti-Inflamma Family History Brother Diabetes Heart disease Surgical History H/O bilateral breast reduction surgery History of esophagogastroduodenoscopy (EGD) Bariatric surgery status Hx of colonoscopy History of esophagogastroduodenoscopy (EGD) Hx of hernia repair History of tonsillectomy and adenoidectomy Hx of foot surgery Hx of total hysterectomy Hx of gastric bypass Hx laparoscopic cholecystectomy Social History Smoking Status: Former smoker how long ago did patient quit smoking: quit 2012 alcohol intake: never substance use type: does not use additional social history: denies vaping, denies marijuana use, denies edible, denies aspirin use denies ibuprofen ROS Constitutional Constitutional: Denies fatigue, fever(s), poor appetite, weight gain or weight loss Gastrointestinal Gastrointestinal: Denies belching, bloating, change in bowel habits, change in stool character, chewing difficulty, coffee ground emesis, constipation, cramping, diarrhea, dyspepsia, dysphagia, early satiety, excessive flatus, fecal incontinence, heartburn, hematemesis, hematochezia, hemorrhoids, loose stools, melena, nausea, odynophagia, rectal bleeding, tenesmus, vomiting or weight changes Vital Signs Vital Signs Vital Signs: 08/14/24 08:58 08/14/24 08:58 Temperature 97.9 F Temperature Source Temporal Pulse Rate 57 L Respiratory Rate 18 Respiratory Pattern Normal Blood Pressure 121/83 H Blood Pressure Mean 95 Blood Pressure Source Monitor Blood Pressure Position Semi-Fowlers Blood Pressure Location Left Forearm Pulse Ox 100 Oxygen Delivery Method Room Air Weight Weight: 218 lb 4.122 oz Body Mass Index (BMI) 39.9 Physical Exam Const alert, oriented x3, no apparent distress and healthy appearing General Appearance: cooperative GI normal to inspection, nondistended, normoactive bowel sounds, soft to palpation, non-tender and non-distended Percussion: normal to percussion Rectal Exam: deferred Results Lab / Micro Data Labs: Laboratory Results - last 24 hr 08/14/24 08:46: POC Glucose 138 H Assessment & Plan Assessment/Plan (1) Nausea: (2) Personal history of colonic polyps: PLAN: Assessment and Plan Assessment and Plan (1) Dysphagia: Status: Chronic Qualifiers: Dysphagia type: esophageal phase Qualified Code(s): R13.19 - Other dysphagia Plan: She will need to undergo an upper endoscopy to evaluate upper GI tract with botox and possible dilation. She was explained alternatives, risk, benefits include not withstanding bleeding, pectin, sepsis, perforation, need for return to . She will have an ASA of 3. (2) History of Cristian-en-Y gastric bypass: Status: Chronic Comment: 2019 (3) Nausea: Status: Chronic Plan: Chronic nausea can be a side effect from gastric bypass due to removal of gastrin. I would like to get a upper GI with follow-through plus or minus gastric emptying study (4) GERD (gastroesophageal reflux disease): Status: Inactive Qualifiers: Esophagitis presence: with esophagitis Esophagitis bleeding: without hemorrhage Qualified Code(s): K21.00 - Gastro-esophageal reflux disease with esophagitis, without bleeding Plan: She is having worsening gastroesophageal reflux disease that I thought was secondary to bile induced gastritis. She underwent an upper endoscopy was discovered to have a patent wire with a normal gastric pouch. There is no ulcerations at the proximal anastomosis with distal anastomosis. Biopsies were taken throughout the small bowel and it did show mild chronic inflammation with some very small inflammation at the site of surgery. I will give her a course of Reglan therapy along with switching her PPI to Protonix therapy (5) Encounter for screening for malignant neoplasm of colon: Status: Inactive Plan: Her colonoscopy did not reveal any adenomatous polyp. She did have diverticular disease. She will need a repeat colonoscopy in 5 years.
--- NOTE | 2024-08-14 10:52 | PCM.POST.ANE ---
Anesthesia: Postop Eval I Current Vital Signs Temperature: 97.6 F Pulse Rate: 76 Blood Pressure: 111/56 Respiratory Rate: 16 Pulse Ox: 95 Oxygen Delivery Method: Room Air Assessment Airway patent: Yes Spontaneous unlabored respirations: Yes Mental status: Awake and Calm nausea: No Vomiting: No Anesthesia Complication: No Fluid Hydration Crystalloid volume administer (ml): 600 Total IV fluid infused: 600 Progress Note Anesthesia document: Postop Eval 1 completed: Yes
[2024-08-14 10:53] VITALS: BP 109/52; BP 111/56; BP 121/83; PULSE 66; PULSE 76; RESP 14; RESP 16; TEMP 36.4; O2SAT 95
--- NOTE | 2024-08-14 10:53 | OP.CCLET_ITS ---
08/14/2024 Sneha Bowling Re : Upper GI endoscopy procedure for Belle Hamm Dear Dash This procedure was performed on August. My impressions and recommendations are as follows: Impressions : - Z-line irregular, 39 cm from the incisors. Biopsied. 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 Biopsied. - Normal examined jejunum. Recommendations : - Discharge patient to home. - Resume previous diet. - Continue present medications. - Await pathology results. My findings are described in the full procedure note, which is enclosed. If I can be of further assistance, please feel free to contact me at . Sincerely, Moncho Carrillo, 08/14/2024 10:53:14 AM This report has been signed electronically.
--- NOTE | 2024-08-14 10:53 | OP.EGD_ITS ---
Patient Name: Belle Hamm Procedure Date: 08/14/2024 10:04 AM Date of : 1970 Age: 54 Procedure: Upper GI endoscopy Indications: Epigastric abdominal pain, Functional Dyspepsia, Dysphagia Providers: Moncho Carrillo DO Referring MD: Sneha Bowling Medicines: Monitored Anesthesia Care Patient Profile: This is a 54 year old female. Refer to note in patient chart for documentation of history and physical. Patient has symptoms of dysphagia with both liquids and solids, chronic heartburn and chronic nausea. Complications: No immediate complications. Procedure: Pre-Anesthesia Assessment: - Prior to the procedure, a History and Physical was performed, and patient medications and allergies were reviewed. The patient is competent. The risks and benefits of the procedure and the sedation options and risks were discussed with the patient. All questions were answered and informed consent was obtained. Patient identification and proposed procedure were verified by the physician. Mental Status Examination: alert and oriented. Airway Examination: normal oropharyngeal airway and neck mobility. Respiratory Examination: clear to auscultation. CV Examination: normal. Prophylactic Antibiotics: The patient does not require prophylactic antibiotics. Prior Anticoagulants: The patient has taken no anticoagulant or antiplatelet agents. ASA Grade Assessment: II - A patient with mild systemic disease. After reviewing the risks and benefits, the patient was deemed in satisfactory condition to undergo the procedure. The anesthesia plan was to use monitored anesthesia care (MAC). Immediately prior to administration of medications, the patient was re-assessed for adequacy to receive sedatives. The heart rate, respiratory rate, oxygen saturations, blood pressure, adequacy of pulmonary ventilation, and response to care were monitored throughout the procedure. The physical status of the patient was re-assessed after the procedure. After obtaining informed consent, the endoscope was passed under direct vision. Throughout the procedure, the patient's blood pressure, pulse, and oxygen saturations were monitored continuously. The pediatric colonoscope was introduced through the mouth, and advanced to the anastomosis site of gastric bypass. The upper GI endoscopy was accomplished without difficulty. The patient tolerated the procedure well. Scope In: 10:21:56 AM Scope Out: 10:24:26 AM Total Procedure Duration Time 0 hours 2 minutes 30 seconds Findings: The Z-line was irregular and was found 39 cm from the incisors. Biopsies were taken with a cold forceps for histology. Verification of patient identification for the specimen was done. Estimated blood loss was minimal. 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 The gastrojejunal anastomosis was characterized by friable mucosa and inflammation. This was traversed. The fwmbr-pk-[id number] limb was characterized by healthy appearing mucosa. The jejunojejunal anastomosis was characterized by healthy appearing mucosa. The ydnbkobw-re-agcqbip limb was not examined as it could not be found. The excluded stomach was not examined as it could not be found. Biopsies were taken with a cold forceps for histology. Verification of patient identification for the specimen was done. Estimated blood loss was minimal. The examined jejunum was normal. Impression: - Z-line irregular, 39 cm from the incisors. Biopsied. 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 Biopsied. - Normal examined jejunum. Recommendation: - Discharge patient to home. - Resume previous diet. - Continue present medications. - Await pathology results. Procedure Code(s): --- Professional --- 24858, Esophagogastroduodenoscopy, flexible, transoral; with biopsy, single or multiple CPT copyright 2021 [employer]. All rights reserved. The codes documented in this report are preliminary and upon shipping receiving clerk review may be revised to meet current compliance requirements. Moncho Carrillo DO 08/14/2024 10:53:14 AM This report has been signed electronically. Number of Addenda: 0 Note Initiated On: 08/14/2024 10:04 AM
[2024-08-14 10:55] VITALS: BP 108/52; BP 121/83; PULSE 65; RESP 14; O2SAT 95
[2024-08-14 11:00] VITALS: BP 114/65; BP 121/83; PULSE 61; RESP 14; TEMP 36.7; O2SAT 98
--- NOTE | 2024-08-14 11:02 | PCM.POSTANE2 ---
Anesthesia Postop Eval I Sum Postop Eval Completion status Anesthesia document: Postop Eval 1 completed: Yes Anesthesia Postop Eval I Summary Anesthesia Postop Eval I Summary: Anesthesia Postop Eval I: Assessment Summary Airway patent Yes 08/14/24 10:53 [email or web address] Spontaneous unlabored Yes 08/14/24 10:53 [email or web address] respirations Mental status Awake,Calm 08/14/24 10:53 [email or web address] nausea No 08/14/24 10:53 [email or web address] Vomiting No 08/14/24 10:53 [email or web address] Anesthesia Postop Eval I: Fluid Summary Crystalloid volume administer 600 08/14/24 10:53 [email or web address] (ml) Colloids volume administered ( ml) Blood Product volume administered (ml) Total IV fluid infused 600 08/14/24 10:53 [email or web address] Anesthesia Postop Eval I: Summary Notes Anesthesia Complication No 08/14/24 10:53 [email or web address] Anesthesia Complication Comment: Post-operative progress note Anesthesia: Postop Eval II Evaluation Mental status: Awake Pain Level: 0 nausea: No Vomiting: No
--- NOTE | 2024-08-14 11:04 | OP.CCLET_ITS ---
08/14/2024 Sneha Bowling Re : Colonoscopy procedure for Belle Hamm Dear Dash This procedure was performed on August. My impressions and recommendations are as follows: Impressions : - Diverticulosis in the recto-sigmoid colon and in the sigmoid colon. - The examination was otherwise normal on direct and retroflexion views. - Congested mucosa in the distal ileum. Biopsied. Recommendations : - Discharge patient to home. - Resume previous diet. - Continue present medications. - Await pathology results. - Repeat colonoscopy in 5 years for surveillance. My findings are described in the full procedure note, which is enclosed. If I can be of further assistance, please feel free to contact me at . Sincerely, Moncho Carrillo, 08/14/2024 11:03:51 AM This report has been signed electronically.
--- NOTE | 2024-08-14 11:04 | OP.COLON_ITS ---
Patient Name: Belle Hamm Procedure Date: 08/14/2024 10:24 AM Date of : 1970 Age: 54 Procedure: Colonoscopy Indications: High risk colon cancer surveillance: Personal history of colonic polyps Providers: Moncho Carrillo DO Referring MD: Sneha Bowling Medicines: Monitored Anesthesia Care Patient Profile: This is a 54 year old female. Refer to note in patient chart for documentation of history and physical. Patient has symptoms of dysphagia with both liquids and solids, chronic heartburn and chronic nausea. Last Colonoscopy: several years ago. Complications: No immediate complications. Procedure: Pre-Anesthesia Assessment: - Prior to the procedure, a History and Physical was performed, and patient medications and allergies were reviewed. The patient is competent. The risks and benefits of the procedure and the sedation options and risks were discussed with the patient. All questions were answered and informed consent was obtained. Patient identification and proposed procedure were verified by the physician. Mental Status Examination: alert and oriented. Airway Examination: normal oropharyngeal airway and neck mobility. Respiratory Examination: clear to auscultation. CV Examination: normal. Prophylactic Antibiotics: The patient does not require prophylactic antibiotics. Prior Anticoagulants: The patient has taken no anticoagulant or antiplatelet agents. ASA Grade Assessment: II - A patient with mild systemic disease. After reviewing the risks and benefits, the patient was deemed in satisfactory condition to undergo the procedure. The anesthesia plan was to use monitored anesthesia care (MAC). Immediately prior to administration of medications, the patient was re-assessed for adequacy to receive sedatives. The heart rate, respiratory rate, oxygen saturations, blood pressure, adequacy of pulmonary ventilation, and response to care were monitored throughout the procedure. The physical status of the patient was re-assessed after the procedure. After I obtained informed consent, the scope was passed under direct vision. Throughout the procedure, the patient's blood pressure, pulse, and oxygen saturations were monitored continuously. The pediatric colonoscope was introduced through the anus and advanced to the terminal ileum. The colonoscopy was performed without difficulty. The patient tolerated the procedure well. The quality of the bowel preparation was good. The ileocecal valve, appendiceal orifice, and rectum were photographed. Scope In: 10:26:00 AM Scope Withdrawal Time 0 hours 6 minutes 49 seconds Scope Out: 10:43:44 AM Total Procedure Duration Time 0 hours 17 minutes 44 seconds Findings: The perianal and digital rectal examinations were normal. Multiple small-mouthed diverticula were found in the recto-sigmoid colon and sigmoid colon. The exam was otherwise without abnormality on direct and retroflexion views. A patchy area of the distal ileum was congested. Biopsies were taken with a cold forceps for histology. Verification of patient identification for the specimen was done. Estimated blood loss was minimal. Impression: - Diverticulosis in the recto-sigmoid colon and in the sigmoid colon. - The examination was otherwise normal on direct and retroflexion views. - Congested mucosa in the distal ileum. Biopsied. Recommendation: - Discharge patient to home. - Resume previous diet. - Continue present medications. - Await pathology results. - Repeat colonoscopy in 5 years for surveillance. Procedure Code(s): --- Professional --- 32782, Colonoscopy, flexible; with biopsy, single or multiple CPT copyright 2021 [employer]. All rights reserved. The codes documented in this report are preliminary and upon fire assistant review may be revised to meet current compliance requirements. Moncho Carrillo DO 08/14/2024 11:03:51 AM This report has been signed electronically. Number of Addenda: 0 Note Initiated On: 08/14/2024 10:24 AM
[2024-08-14 11:12] VITALS: BP 121/83
== END 2024-08-14 12:04 | disposition home or self-care (01) ==
LOC: EN 08:26 → AC 08:26
PROVIDERS: Visit Provider Internal Medicine Gastroenterology
PROC: 0DJD8ZZ Inspection of Lower Intestinal Tract, Via Natural or Artificial Opening Endoscopic (ICD-10-PCS; CPT 45378; principal; 2024-08-14 09:40)
DX: Z12.11 Encounter for screening for malignant neoplasm of colon (principal); E11.40 Type 2 diabetes mellitus with diabetic neuropathy, unspecified; I10 Essential (primary) hypertension; Z86.0100 Personal history of colon polyps, unspecified; Z87.891 Personal history of nicotine dependence; K57.30 Diverticulosis of large intestine without perforation or abscess without bleeding; K21.00 Gastro-esophageal reflux disease with esophagitis, without bleeding; Z79.899 Other long term (current) drug therapy; Z79.84 Long term (current) use of oral hypoglycemic drugs; F41.9 Anxiety disorder, unspecified; Z98.84 Bariatric surgery status; Z98.0 Intestinal bypass and anastomosis status
CPT/HCPCS: 45380; 43239; 82962; 88305; J2405

== ENCOUNTER 2024-10-22 06:22 | Day surgery (SDC) | payer MEDICAID, SELFPAY ==
[2024-10-22] VITALS (7 sets, daily range): BP systolic 98–109; BP diastolic 65–74; PULSE 57–65; RESP 14–16; TEMP 35.9–36.6; O2SAT 95–97; BMI 39.1
--- OUTSIDE RECORDS SUMMARY | 2024-10-22 06:28 | XMS RPT_ITS | CCD ---
Author Organization [facility] Care Team Providers Care Inspector And Tester Name Role Phone Daniel Tsang Unavailable Unavaila Berenice Barros Primary Care Provider Harley Kelly Primary Care Provider [phone] Soni Anguiano Primary Care Provider Pcp, No Primary Care Provider DR BERENICE Ovalle DO Primary Care Physician [phone] Friend, Dr. Ivan Attending Provider [phone] Dr. Berenice Bowling Referring Provider MIKE Melissa Attending Provider [phone] [address] Ivan Other Provider [phone] Berenice Bowling Primary Care Provider [phone] Unavailable Primary Care Provider DR BERENICE Ovalle DO Primary Care Physician [phone] DR BERENICE BOWLING DO Primary Care Physician [phone] Unavailable Primary Care Provider Dr. Berenice Ovalle Primary Care Provider [phone]) Dr. Berenice Bowling Referring Provider MIKE Melissa Attending Provider [phone] [address] Ivan Attending Provider [phone] [address] Ivan Other Provider [phone] BERENICE BOWLING Primary Care Unavailable BERENICE BOWLING Attending Unavailable BERENICE BOWLING Primary Care Unavailable BERENICE BOWLING Attending Unavailable SUPPRODRIGO BORGES DPM Attending Unavailable BERENICE BOWLING Primary Care Unavailable BERENICE BOWLING Primary Care Unavailable SUPPAN RODRIGO ANAND Attending Unavailable DASHBERENICE Attending Unavailable DASH, BERENICE Primary Care Unavailable DASH, BERENICE Attending Unavailable DASH, BERENICE Primary Care Unavailable DASH, BERENICE Primary Care Unavailable DASH, BERENICE Attending Unavailable DASH, BERENICE Primary Care Unavailable DASHBERENICE Attending Unavailable Dash DO, Berenice Martin Primary Care Provider [phone] DASH, BERENICE Primary Care Unavailable HERBERT HIGGINS Attending Unavailable Dash DO, Berenice Primary Care Provider [phone] Lorena DANIELSON, Moncho Carter Unavailable JUANJOSE KING Referring Unavailable DASH, BERENICE MARTIN Primary Care Unavailable JUANJOSE KING Attending Unavailable DASH, BERENICE MARTIN Primary Care Unavailable DASH, BERENICE MARTIN Primary Care Unavailable DASH, BERENICE MARTIN Primary Care Unavailable DASH, BERENICE MARTIN Primary Care Unavailable JUANJOSE KING Attending Unavailable DASH, BERENICE MARTIN Primary Care Unavailable BUTTTORITO Arceo Attending Unavailable BUTT, TORITO Primary Care Unavailable TORITO BUTT Admitting Unavailable Dash , Dr. Berenice Martin Primary Care Provider Dash , Dr. Berenice Martin Referring Provider [phone] Lorena DANIELSON, Dr. Ivan Attending Provider Lorena DANIELSON, Dr. Ivan Other Provider Staci Conklin Attending Provider [phone] Dash DO, Berenice Jones Primary Care Provider DASH DO, DR NG Primary Care Unavailable DARIN BIOMASS PRODUCTION MANAGER-PASTE UP WORKER, SOLANGE Attending Unavai lable DASH DO, DR NG Primary Care Unavailable SEANIKA BIOMASS PRODUCTION MANAGER-PASTE UP WORKER, SOLANGE Attending Unavai lable DASH DO, DR NG Primary Care Unavailable DASH DO, DR NG Attending Unavailable DASH DO, DR NG Attending Unavailable DASH DO, DR NG Primary Care Unavailable DASH DO, DR NG Attending Unavailable DASH DO, DR NG Primary Care Unavailable DASH DO, DR NG Primary Care Unavailable TIMO HERRERA, DR CLARA Hickman Attending Unavailable ARETHA BIOMASS PRODUCTION MANAGER-PASTE UP WORKER, BETSY Fernández Attending Unava ilable DASH DO, DR NG Primary Care Unavailable DASH DO, DR NG Primary Care Unavailable ARETHA BIOMASS PRODUCTION MANAGER-PASTE UP WORKER, BETSY Fernández Attending Unava ilable DSAH DO, DR NG Primary Care Unavailable DASH DO, DR NG Attending Unavailable DASH DO, DR NG Primary Care Unavailable BALTES BIOMASS PRODUCTION MANAGER-PASTE UP WORKER, HANNAH Attending Unavailabl e DASH DO, DR NG Primary Care Unavailable DASH DO, DR NG Attending Unavailable DASH DO, DR NG Primary Care Unavailable MASTRACCO DPM, EVELIO Sexton Attending Unavai lable DASH DO, DR NG Primary Care Unavailable ROSSANA HERRERA, VIRGINIA Rodriguez Attending Unavailable DASH DO, DR NG Primary Care Unavailable DOLORES HERRERA, JOSE A Arceo Attending Unavail able DASH DO, DR NG Primary Care Unavailable BIANKA WADE MD Attending Unavailable DASH DO, DR NG Primary Care Unavailable BALTES BIOMASS PRODUCTION MANAGER-PASTE UP WORKER, HANNAH Attending Unavailabl e DASH DO, DR NG Attending Unavailable DASH DO, DR NG Primary Care Unavailable DURESKA DO, RODRIGO Attending Unavailable DASH DO, DR NG Primary Care Unavailable DASH DO, DR NG Primary Care Unavailable DASH DO, DR NG Attending Unavailable DASH DO, DR NG Primary Care Unavailable MASTRACCO DPM, EVELIO Sexton Attending UnaBerenice Osorio Referring Unavailable Rashaunazomirella, Attending Unavailable DashBerenice Referring Unavailable DashBerenice Primary Care Unavailable Staci Yip Attending Unavailable Berenice Bowling Primary Care Unavailable Berenice Bowling Referring Unavailable Rashaunazomirella, Attending Unavailable Berenice Bowling Referring Unavailable DashBerenice Primary Care Unavailable Ghazoul, Attending Unavailable Berenice Bowling Referring Unavailable Friend, Moncho Consulting Unavailable Friend, Moncho Attending Unavailable DashBerenice guo Primary Care Unavailable Ghazoul, Consulting Unavailable Ghazoul, Referring Unavailable Ghazoul, Attending Unavailable DashBerenice Primary Care Unavailable Dash, Berenice Martin Primary Care Unavailable Estrella Ramos Attending Unavailable Dash, Berenice Martin Referring Unavailable Friend, Moncho Attending Unavailable Friend, Moncho Consulting Unavailable Dash, Berenice Martin Primary Care Unavailable Dash, Berenice Martin Referring Unavailable Friend, Moncho Attending Unavailable Dash, Berenice Martin Primary Care Unavailable Dash, Berenice Martin Referring Unavailable Ghazoul, Attending Unavailable Dash, Berenice Martin Referring Unavailable Ghazoul, Attending Unavailable Dash, Berenice Martin Primary Care Unavailable Dash, Berenice Martin Primary Care Unavailable Friend, Moncho Attending Unavailable Dash, Berenice Martin Referring Unavailable Dash, Berenice Martin Primary Care Unavailable Ghazoul, Referring Unavailable Ghazoul, Attending Unavailable Friend, Moncho Attending Unavailable Dash, Berenice Martin Primary Care Unavailable Dash, Berenice Martin Referring Unavailable Friend, Moncho Attending Unavailable Dash, Berenice Martin Primary Care Unavailable Staci Yip Attending Unavailable Staci Yip Referring Unavailable Dash, Berenice Martin Primary Care Unavailable Dash, Berenice Martin Primary Care Unavailable Dash, Berenice Martin Referring Unavailable Ghazoul, Attending Unavailable Dash, Berenice Martin Referring Unavailable Ghazoul, Attending Unavailable Ghazoul, Attending Unavailable DashBerenice Primary Care Unavailable Dash, Berenice Martin Referring Unavailable Ghazoul, Attending Unavailable DashBerenice Primary Care Unavailable Dash, Berenice Martin Referring Unavailable Ghazoul, Attending Unavailable MASTRACCO, EVELIO Referring Unavailable DASHBERENICE Primary Care Unavailable MASTRACCO, EVELIO Admitting Unavailable MASTRACCO, EVELIO Attending Unavailable DASHBERENICE Primary Care Unavailable MASTRACCO, EVELIO Referring Unavailable DASHBERENICE Primary Care Unavailable Allergies Allergy Classification Reported Allergen(s) Allergy Type Date of Onset Reaction(s) Facility (20 sources) Acetaminophen / HYDROcodone; Translations: [HYDROCODONE-ACET AMINOPHEN] Drug Allergy 2 [place] (20 sources) Codeine; Translations: [codeine] Drug Allergy 2 [place] (9 sources) Sulfonamides (Antibiotic) Propensity to adverse reactions to drug 2 [place] (20 sources) Sulfonamides (Antibiotic); Translations: [SULFA (SULFONAMIDE ANTIBIOTICS)] Drug Allergy 2 Rash [facility] (4 sources) Acetaminophen / Codeine; Translations: [acetaminophen-co deine] Drug Allergy Rash [facility] (20 sources) Acetaminophen / HYDROcodone; Translations: [acetaminophen-hy drocodone] Drug Allergy Rash [facility] (20 sources) Naproxen; Translations: [naproxen] Drug Allergy 3 Other: See Comments [facility] (20 sources) Sulfonamides (Antibiotic); Translations: [sulfa drugs] Drug allergy [facility] (20 sources) traMADol; Translations: [tramadol] Drug Allergy 3 Unknown (qualifier value), Unknown [facility] Comment on above: threw me for a loop (1 source) Acetaminophen Drug Allergy 2 [facility] Work Phone: (15 sources) HYDROcodone; Translations: [HYDROCODONE] Drug Allergy 2 Rash [facility] (7 sources) Ibuprofen; Translations: [IBUPROFEN] Drug Allergy 5 Other: See Comments [facility] (2 sources) Sulfonamides (Antibiotic) Drug Allergy 5 [facility] (2 sources) Nonsteroidal Anti-inflammatory Compounds Propensity to adverse reactions 5 Other [facility] Comment on above: GASTRIC BYPASS (1 source) Codeine Drug Allergy 5 [facility] (1 source) HYDROcodone Drug Allergy 5 [facility] (1 source) NSAIDs Drug allergy (disorder) 5 [facility] (1 source) traMADol Drug Allergy 5 [facility] Medications Current Medications Medication Drug Class(es) Dates Sig (Normalized) Sig (Original) acetaminophen 500 mg oral tablet (11 sources) Start: 02-19-2024 acetaminophen 500 mg oral tablet Dose : 1,000 mg = 2 tab(s), Oral, TID, PRN pain or fever, 0 Refill(s) Start Date: 02/19/24 Status: Ordered Repeat number: 1 albuterol MDI (90 mcg/inh) CFC free inhalation aerosol (4 sources) Start: 11-26-2020 take 2 puff(s) by inhalation four times daily as needed for wheezing albuterol MDI (90 mcg/inh) CFC free inhalation aerosol 2 puff(s), Inhalation, QID, PRN as needed for wheezing, # 1 EA, 0 Refill(s), Pharmacy: [facility], 157.5, cm, 11/26/20 8:29:00 EDT, Height, kg, 11/26/20 8:29:00 EDT, Dosing Weight Start Date: 11/26/20 Status: Ordered ALPRAZolam 0.5 mg oral tablet (20 sources) Benzodiazepine Start: 07-13-2022 End: 10-11-2022 ALPRAZolam 0.25 mg oral tablet Dose : 0.25 mg = 1 tab(s), Oral, TID, PRN for anxiety, # 90 tab(s), 2 Refill(s), Pharmacy: [facility], Anxiety, 157.5, cm, 07/13/22 7:59:00 EDT, Height, 101.6, kg, 07/13/22 7:59:00 EDT, Dosing Weight Start Date: 07/13/22 Stop Date: 10/11/22 Status: Ordered Start: 06-08-2021 Alprazolam (Xa nax) 0.25 mg Tablet Active 0.5 mg PO NEEDED as needed for Anxiety June 08, 2021 12:00am Start: 08-29-2013 End: 10-23-2024 ALPRAZolam 0.5 mg oral table t Dose : 0.5 mg = 1 tab(s), Oral, BID, # 60 tab(s), 0 Refill(s), Pharmacy: [facility], ISABELLA (generalized anxiety disorder), 157, cm, 09/23/24 9:31:00 EDT, Height, 99, kg, 09/23/24 9:31:00 EDT, Dosing Weight Start Date: 09/23/24 Stop Date: 10/23/24 Status: Ordered Quantity: 60.0 Unit: tab(s) Repeat number: 1 Indications: Generalized anxiety disorder; Start: 07-08-2013 End: 06-13-2022 ALPRAZolam 0.25 mg oral tabl et Dose : 0.25 mg = 1 tab(s), Oral, TID, PRN for anxiety, # 90 tab(s), 2 Refill(s), Pharmacy: [facility], Anxiety, 157.5, cm, 12/06/21 7:07:00 EDT, Height, 101.7, kg, 12/06/21 7:07:00 EDT, Dosing Weight Start Date: 12/06/21 Stop Date: 03/06/22 Status: Ordered Comment on above: Take 1 tablet by abel at bedtime as needed. amoxicillin 500 mg oral capsule (3 sources) Penicillin-class Antibacterial Start: 03-01-2023 amoxicillin 500 mg oral capsule 0 Refill(s) Start Date: 03/01/23 Status: Ordered Start: 06-13-2022 End: 06-23-2022 take 1 tablet by mouth twice daily amoxicillin (AMOXIL) 875 mg tablet Indications: Bacterial sinusitis , Pharyngitis, unspecified etiology Take 1 tablet by mouth twice daily for 10 days. 20 tablet 0 06/13/2022 06/23/2022 Active Comment on above: Take 1 tablet by abel th twice daily for 10 days. amoxicillin 875 mg / clavulanate 125 mg oral tablet (5 sources) Penicillin-class Antibacterial Start: 03-31-2024 End: 04-10-2024 take 1 tablet by mouth every twelve hours amoxicillin-cla vulanate (Augmentin) 875-125 MG tablet Take 1 tablet by mouth every 12 hours for 10 days. 20 tablet 03/31/2024 04/10/2024 Active Start: 03-31-2024 End: 03-31-2024 take 1 tablet by mouth once 1 tablet (875 mg), Oral, O nce, On 03/31/24 at 0845, For 1 dose, Suspected Indication (Select all that apply): Other, Other Abx Indication: dental infection Start: 02-02-2022 End: 02-11-2022 take 1 tablet by mouth every twelve hours amoxicillin-clavulanate 875 mg-125 mg oral tablet 1 tab(s), Oral, q12h, # 20 tab(s), 0 Refill(s), 66 Start Date: 02/02/22 Stop Date: 02/11/22 Status: Ordered amylase [id number] unt / lipase [id number] unt / protease [id number] unt delayed release oral capsule (15 sources) Start: 05-28-2024 Creon 36,000 u nits oral delayed release capsule 0 Refill(s) Start Date: 05/28/24 Status: Ordered Repeat number: 1 Start: 03-12-2024 Lipase-Proteas e-Amylase (Creon) 36,000-114,000- 180,000 unit capsule,delayed release(DR/EC) Active 3 NMA PO before meals March 12, 2024 1:00am administer 3 capsules with meals and 2 capsules with snacks. Max of 10 capsules per day. biotin 2.5 mg oral capsule (20 sources) Start: 01-04-2024 take 5 mg by mouth once daily Biotin 2,500 mcg capsule Active 5 mg PO DAILY January 04, 2024 12:00am Start: 06-08-2021 End: 01-04-2024 take 1 tablet under the tongue once daily Biotin 5,000 mcg Tablet, Sublingual Discontinued 5000 ug SL DAILY June 08, 2021 12:00am January 04, 2024 2:16pm Start: 02-13-2019 biotin 1 mg ca p Take 5,000 mg by mouth once daily. 02/13/2019 Active Start: 02-13-2019 biotin 1 mg ca p 5 mg. 02/13/2019 Active Start: 02-13-2019 take 1 dose by mouth once zeke y biotin Dose : 5 mg =, Oral, qDay, 0 Refill(s) Start Date: 02/13/19 Status: Ordered Comment on above: 5 mg. bisacodyl 5 mg delayed release oral tablet (2 sources) Stimulant Laxative Start: 5 take 4 tablets by mouth once Bisacodyl (Dulcolax (Bisacodyl)) 5 mg tablet,delayed release (DR/EC) Active 20 mg PO ONCE March 12, 2024 1:00am busPIRone hydrochloride 5 mg oral tablet (9 sources) Start: 5 busPIRone 5 mg oral tablet Dose : 5 mg = 1 tab(s), Oral, TID, # 90 tab(s), 1 Refill(s), Pharmacy: [facility], 157, cm, 10/01/24 13:03:00 EDT, Height, kg, 10/01/24 13:03:00 EDT, Dosing Weight Start Date: 10/01/24 Status: Ordered Quantity: 90.0 Unit: tab(s) Repeat number: 2 Start: 12-19-2023 End: 08-11-2024 busPIRone 5 mg oral tablet D ose : 5 mg = 1 tab(s), Oral, TID, # 90 tab(s), 1 Refill(s), Pharmacy: [facility], 155, cm, 03/27/24 8:23:00 EST, Height, kg, 03/27/24 8:23:00 EST, Dosing Weight Start Date: 03/27/24 Status: Ordered Quantity: 90.0 Unit: tab(s) Repeat number: 2 take 1 tablet by three times daily busPIRone (BUSPAR) 5 MG tablet Indications: anxiety Take 5 mg by mouth 3 times daily Indications: anxiety 0 Active calcium carbonate 500 mg chewable tablet (1 source) Start: 08-02-2018 take 1 tablet by mouth three times daily calcium carbonate (TUMS) 500 MG chewable tablet Indications: supplement Take 1 tablet by mouth 3 times daily Indications: supplement 0 08/02/2018 Active calcium citrate 500 mg oral tablet (8 sources) Start: 11-19-2018 take 500 mg by mouth three times daily CALCIUM CITRATE PO Indications: supplement Take 500 mg by mouth 3 times daily Indications: supplement 0 11/19/2018 Active cetirizine hydrochloride 10 mg oral tablet (20 sources) Histamine-1 Receptor Antagonist Start: 12-30-2020 cetirizine 10 mg oral tablet Dose : 10 mg = 1 tab(s), Oral, qDay, # 100 tab(s), 3 Refill(s), Pharmacy: [facility], 155, cm, 06/24/24 8:25:00 EDT, Height, kg, 06/24/24 8:25:00 EDT, Dosing Weight Start Date: 06/24/24 Status: Ordered Quantity: 100.0 Unit: tab(s) Repeat number: 4 Comment on above: cetirizine 10 mg tab let chlorhexidine gluconate 1.2 mg/ml mouthwash (2 sources) Start: 03-31-2024 End: 04-14-2024 take 15 mL by mouth twice daily chlorhexidine (Peridex) 0.12 % solution Use 15 mL in the mouth or throat 2 times daily for 14 days. 28 each 03/31/2024 04/14/2024 Active colestipol hydrochloride 1000 mg oral tablet (1 source) Bile Acid Sequestrant Start: 10-09-2018 End: 11-08-2018 take 1 tablet by mouth twice daily colestipol (COLESTID) 1 g tablet Indications: Hx of cholecystectomy , Functional diarrhea Take 1 tablet by mouth 2 times daily 60 tablet 5 10/09/2018 11/08/2018 Active CPAP Machine MISC (9 sources) CPAP Machine MIS C Indications: EMANUEL 10 cm nightly Indications: EMANUEL 0 Active CPAP Machine MIS C Indications: rate of 10 by Does not apply route Indications: rate of 10 0 Active dexamethasone 4 mg oral tablet (1 source) Corticosteroid Start: 06-13-2022 End: 06-17-2022 take 1 tablet by mouth once daily dexAMETHasone (DECADRON) 4 mg tablet Indications: Bacterial sinusitis , Pharyngitis, unspecified etiology Take 1 tablet by mouth once daily for 4 days. 4 tablet 0 06/13/2022 06/17/2022 Active Comment on above: Take 1 tablet by abel th once daily for 4 days. diclofenac sodium 0.01 mg/mg topical gel (20 sources) Nonsteroidal Anti-inflammatory Drug Start: 06-24-2024 Voltaren 1% topical gel 2 = gram(s), Topical, QID, # 100 gram(s), 1 Refill(s), Pharmacy: [facility], Gel, 155, cm, 06/24/24 8:25:00 EDT, Height, 98.2, kg, 06/24/24 8:25:00 EDT, Dosing Weight Start Date: 06/24/24 Status: Ordered Quantity: 100.0 Unit: g Repeat number: 2 Start: 03-27-2024 Voltaren 1% to pical gel 2 = gram(s), Topical, QID, # 100 gram(s), 1 Refill(s), Pharmacy: [facility], Gel, 155, cm, 03/27/24 8:23:00 EST, Height, 96.3, kg, 03/27/24 8:23:00 EST, Dosing Weight Start Date: 03/27/24 Status: Ordered Quantity: 100.0 Unit: g Repeat number: 2 Start: 09-14-2023 Voltaren 1% to pical gel 2 = gram(s), Topical, QID, # 100 gram(s), 1 Refill(s), Pharmacy: [facility], Gel, 157, cm, 09/14/23 7:07:00 EDT, Height, 101.7, kg, 09/14/23 7:07:00 EDT, Dosing Weight Start Date: 09/14/23 Status: Ordered Quantity: 100.0 Unit: g Repeat number: 2 Start: 02-10-2022 Voltaren 1% to pical gel Apply 1 eric, Topical, QID, # 100 gram(s), 0 Refill(s), Pharmacy: [facility], Gel, 122, cm, 01/20/22 13:56:00 EST, Height, 100.6 Start Date: 02/10/22 Status: Ordered dicyclomine hydrochloride 10 mg oral capsule (5 sources) Anticholinergic Start: 08-28-2024 take 1 capsule by mouth twice daily Dicyclomine 10 mg capsule Active 10 mg PO TWICE A DAY August 28, 2024 12:00am Start: 08-29-2013 take 1 capsule by [facility] every six hours dicyclomine 10 mg capsule Take 1 capsule by mouth every 6 hours. 120 capsule 0 08/29/2013 Active Comment on above: Take 1 capsule by [facility] every 6 hours. dilTIAZem hydrochloride 30 mg oral tablet (20 sources) Calcium Channel Jacob Start: 09-03-19 End: 08-12-19 take 1 tablet by mouth once daily dilTIAZem (CARDIZEM) 30 mg tablet Take 1 tablet by mouth once daily. 09/14/2023 Active docusate sodium 50 mg / sennosides, shelter 8.6 mg oral tablet (9 sources) Start: 08-22-19 take 8.6-50 mg by mouth once as needed senna-docusate (PERICOLACE) 8.6-50 MG per tablet Take 1 tablet by mouth daily as needed for Constipation 30 tablet 5 08/21/2018 Active esomeprazole 20 mg delayed release oral tablet (3 sources) Proton Pump Inhibitor Start: 10-10-19 End: 01-08-20 take 1 tablet by mouth once daily before breakfast Esomeprazole Magnesium (NEXIUM 24HR) 20 MG TBEC Indications: Gastroesophageal reflux disease without esophagitis Take 20 mg by mouth every morning (before breakfast) 30 tablet 3 10/09/2018 Active ferrous sulfate 325 mg oral tablet (20 sources) Start: 03-12-19 take 1 tablet by mouth once daily Ferrous Sulfate 325 mg (65 mg iron) tablet Active 325 mg PO daily March 12, 2024 1:00am Start: 02-08-2024 ferrous sulfat e 325 mg (65 mg elemental iron) oral delayed release tablet Dose : 325 mg = 1 tab(s), Oral, qDay, # 90 tab(s), 3 Refill(s), Pharmacy: [facility], 157.5, cm, 01/24/24 15:12:00 EST, Height, kg, 01/24/24 15:12:00 EST, Dosing Weight Start Date: 02/08/24 Status: Ordered Quantity: 90.0 Unit: tab(s) Repeat number: 4 Start: 12-19-2019 take 1 tablet by abel th once daily ferrous sulfate (FE TABS 325) 325 (65 Fe) MG EC tablet Take 1 tablet by mouth daily RD Vitamin Replacement Protocol 30 tablet 5 12/19/2019 Active Start: 02-20-2019 take 1 tablet by abel th once daily ferrous sulfate 325 (65 Fe) MG EC tablet Take 1 tablet by mouth daily RD Vitamin Replacement Protocol 30 tablet 5 02/20/2019 Active Start: 08-21-2018 take 1 tablet by abel th once daily ferrous sulfate 325 (65 Fe) MG EC tablet Take 1 tablet by mouth daily RD Vitamin Replacement Protocol 30 tablet 5 08/21/2018 Active Flonase 50 mcg/inh nasal spray (2 sources) Start: 10-15-2020 take 1 dose nasal route once daily in the morning Flonase 50 mcg/inh nasal spray Dose = 2 spray(s), Nostril, each, qAM, # 1 EA, 3 Refill(s), Pharmacy: [facility], 157.5, cm, 10/15/20 7:59:00 EDT, Height, kg, 10/15/20 7:59:00 EDT, Dosing Weight Start Date: 10/15/20 Status: Ordered fluconazole 150 mg oral tablet (2 sources) Azole Antifungal Start: 01-29-2024 End: 01-29-2024 fluconazole (DIFLUCAN) 150 mg tablet Take 1 tablet by mouth one time only for 1 dose. Repeat in 3 days as needed. 2 tablet 01/29/2024 01/29/2024 Active FLUoxetine 40 mg oral capsule (20 sources) Serotonin Reuptake Inhibitor Start: 06-24-2024 FLUoxetine 40 mg oral capsule Dose : 80 mg = 2 cap(s), Oral, qDay, # 180 cap(s), 1 Refill(s), Pharmacy: [facility], 155, cm, 06/24/24 8:25:00 EDT, Height, kg, 06/24/24 8:25:00 EDT, Dosing Weight Start Date: 06/24/24 Status: Ordered Quantity: 180.0 Unit: cap(s) Repeat number: 2 Start: 03-27-2024 FLUoxetine 40 mg oral capsule Dose : 80 mg = 2 cap(s), Oral, qDay, # 180 cap(s), 1 Refill(s), Pharmacy: [facility], 155, cm, 03/27/24 8:23:00 EST, Height, kg, 03/27/24 8:23:00 EST, Dosing Weight Start Date: 03/27/24 Status: Ordered Quantity: 180.0 Unit: cap(s) Repeat number: 2 Start: 01-03-2024 FLUoxetine 40 mg oral capsule Dose : 80 mg = 2 cap(s), Oral, qDay, # 180 cap(s), 1 Refill(s), Pharmacy: [facility], 157.5, cm, 01/03/24 8:50:00 EDT, Height, kg, 01/03/24 8:50:00 EDT, Dosing Weight Start Date: 01/03/24 Status: Ordered Quantity: 180.0 Unit: cap(s) Repeat number: 2 Start: 09-14-2023 FLUoxetine 40 mg oral capsule Dose : 80 mg = 2 cap(s), Oral, qDay, # 180 cap(s), 1 Refill(s), Pharmacy: [facility], 157, cm, 09/14/23 7:07:00 EDT, Height, kg, 09/14/23 7:07:00 EDT, Dosing Weight Start Date: 09/14/23 Status: Ordered Start: 03-01-2023 FLUoxetine 40 mg oral capsule Dose : 80 mg = 2 cap(s), Oral, qDay, # 180 cap(s), 1 Refill(s), Pharmacy: [facility], 158, cm, 03/01/23 7:11:00 EST, Height, kg, 03/01/23 7:11:00 EST, Dosing Weight Start Date: 03/01/23 Status: Ordered Start: 11-30-2022 FLUoxetine 40 mg oral capsule Dose : 80 mg = 2 cap(s), Oral, qDay, # 180 cap(s), 1 Refill(s), Pharmacy: [facility], 157.4, cm, 11/24/22 10:30:00 EDT, Height, kg, 11/30/22 10:49:00 EDT, Dosing Weight Start Date: 11/30/22 Status: Ordered Start: 07-13-2022 FLUoxetine 40 mg oral capsule Dose : 80 mg = 2 cap(s), Oral, qDay, # 180 cap(s), 1 Refill(s), Pharmacy: [facility], 157.5, cm, 07/13/22 7:59:00 EDT, Height, kg, 07/13/22 7:59:00 EDT, Dosing Weight Start Date: 07/13/22 Status: Ordered Start: 12-06-2021 FLUoxetine 40 mg oral capsule Dose : 80 mg = 2 cap(s), Oral, qDay, # 180 cap(s), 1 Refill(s), Pharmacy: [facility], 157.5, cm, 12/06/21 7:07:00 EDT, Height, kg, 12/06/21 7:07:00 EDT, Dosing Weight Start Date: 12/06/21 Status: Ordered Start: 06-08-2021 Fluoxetine (Pr ozac) 40 mg Capsule Active 60 MG PO DAILY June 08, 2021 11:45am Start: 06-08-2021 take 2 capsules by m outh once daily FLUoxetine (PROZAC) 40 mg capsule Take 80 mg by mouth once daily. 04/19/2022 Active Start: 04-19-2021 FLUoxetine 40 mg oral capsule Dose : 40 mg = 1 cap(s), Oral, qDay, # 30 cap(s), 5 Refill(s), Pharmacy: [facility], 157.5, cm, 04/19/21 11:19:00 EST, Height, kg, 04/19/21 11:19:00 EST, Dosing Weight Start Date: 04/19/21 Status: Ordered Start: 10-15-2020 FLUoxetine 40 mg oral capsule Dose : 40 mg = 1 cap(s), Oral, qDay, # 30 cap(s), 2 Refill(s), Pharmacy: [facility], 157.5, cm, 10/15/20 7:59:00 EDT, Height, kg, 10/15/20 7:59:00 EDT, Dosing Weight Start Date: 10/15/20 Status: Ordered Start: 08-29-2013 End: 06-13-2022 take 1 capsule by mouth once daily FLUoxetine (PROZAC) 20 mg capsule Indications: Anxiety Take 1 capsule by mouth once daily. 90 capsule 2 08/29/2013 06/13/2022 Discontinued Start: 08-29-2013 take 4 capsules by m outh once daily FLUoxetine (PROZAC) 20 MG capsule Indications: Anxiety Take 80 mg by mouth daily Indications: Anxiety 0 08/29/2013 Active Start: 08-29-2013 take 2 capsules by m outh once daily FLUoxetine (PROZAC) 20 MG capsule Indications: Anxiety Take 40 mg by mouth daily Indications: Anxiety 0 08/29/2013 Active Comment on above: Take 1 capsule by [facility] once daily. 80 mg. fluticasone propionate 0.05 mg/actuat metered dose nasal spray (20 sources) Corticosteroid Start: take 1 dose nasal route once daily in the morning Flonase 50 mcg/inh nasal spray Dose = 2 spray(s), Nostril, each, qAM, # 1 EA, 0 Refill(s), Pharmacy: [facility], 155, cm, 03/27/24 8:23:00 EST, Height, kg, 03/27/24 8:23:00 EST, Dosing Weight Start Date: 03/27/24 Status: Ordered Quantity: 1.0 Unit: EA Repeat number: 1 Start: 01-03-2024 take 1 dose nasal ro [place] once daily in the morning Flonase 50 mcg/inh nasal spray Dose = 2 spray(s), Nostril, each, qAM, # 1 EA, 0 Refill(s), Pharmacy: [facility], 157.5, cm, 01/03/24 8:50:00 EDT, Height, kg, 01/03/24 8:50:00 EDT, Dosing Weight Start Date: 01/03/24 Status: Ordered Quantity: 1.0 Unit: EA Repeat number: 1 Start: 11-29-2023 take 1 dose nasal ro [place] once daily in the morning Flonase 50 mcg/inh nasal spray Dose = 2 spray(s), Nostril, each, qAM, # 1 EA, 0 Refill(s), Pharmacy: [facility], 157.5, cm, 11/29/23 1:54:00 EDT, Height, kg, 11/29/23 1:54:00 EDT, Dosing Weight Start Date: 11/29/23 Status: Ordered Start: 09-14-2023 take 1 dose nasal ro [place] once daily in the morning Flonase 50 mcg/inh nasal spray Dose = 2 spray(s), Nostril, each, qAM, # 1 EA, 3 Refill(s), Pharmacy: [facility], 157, cm, 09/14/23 7:07:00 EDT, Height, kg, 09/14/23 7:07:00 EDT, Dosing Weight Start Date: 09/14/23 Status: Ordered Start: 07-13-2022 take 1 dose nasal ro [place] once daily in the morning Flonase 50 mcg/inh nasal spray Dose = 2 spray(s), Nostril, each, qAM, # 1 EA, 3 Refill(s), Pharmacy: [facility], 157.5, cm, 07/13/22 7:59:00 EDT, Height, kg, 07/13/22 7:59:00 EDT, Dosing Weight Start Date: 07/13/22 Status: Ordered Start: 09-29-2021 take 1 dose nasal ro [place] once daily in the morning Flonase 50 mcg/inh nasal spray Dose = 2 spray(s), Nostril, each, qAM, # 1 EA, 3 Refill(s), Pharmacy: [facility], 157.5, cm, 09/01/21 10:18:00 EDT, Height, kg, 09/01/21 10:18:00 EDT, Dosing Weight Start Date: 09/29/21 Status: Ordered Start: 10-15-2020 take 1 dose nasal ro [place] once daily in the morning Flonase 50 mcg/inh nasal spray Dose = 2 spray(s), Nostril, each, qAM, # 1 EA, 3 Refill(s), Pharmacy: [facility], 157.5, cm, 10/15/20 7:59:00 EDT, Height, kg, 10/15/20 7:59:00 EDT, Dosing Weight Start Date: 10/15/20 Status: Ordered Start: 10-15-2020 take 1 spray(s) nasa l route once daily as needed fluticasone (FLONASE) 50 mcg/actuation nasal spray Use 1 [place] in each nostril once daily as needed. 10/15/2020 Active Start: 10-15-2020 fluticasone (F LONASE) 50 mcg/actuation nasal spray fluticasone propionate 50 mcg/actuation nasal spray,suspension 10/15/2020 Active Start: 10-15-2020 fluticasone (F LONASE) 50 mcg/actuation nasal spray fluticasone propionate 50 mcg/actuation nasal spray,suspension 0 10/15/2020 Active Comment on above: fluticasone propiona te 50 mcg/actuation nasal spray,suspension folic acid 1 mg oral tablet (20 sources) Start: 03-12-2024 End: 07-03-2024 folic acid 1 mg oral tablet Dose : 1 mg = 1 tab(s), Oral, qDay, # 30 tab(s), 0 Refill(s) Start Date: 03/27/24 Status: Ordered Quantity: 30.0 Unit: tab(s) Repeat number: 1 folic acid 1 mg / vitamin b12 0.5 mg oral tablet (8 sources) Vitamin B12 Start: 01-18-2021 Vitamin [id number] Acid 0.5-1 mg tab Take by mouth. 01/18/2021 Active Comment on above: Take by mouth. gabapentin 300 mg oral capsule (20 sources) Anti-epileptic Agent Start: 09-14-2023 End: 03-15-2025 gabapentin 300 mg oral capsule Dose : 300 mg = 1 cap(s), Oral, TID, # 270 cap(s), 1 Refill(s), Pharmacy: [facility], Peripheral neuropathy, 157, cm, 08/19/24 7:49:00 EDT, Height, 100.9, kg, 08/19/24 7:49:00 EDT, Dosing Weight Start Date: 09/16/24 Stop Date: 03/15/25 Status: Ordered Quantity: 270.0 Unit: cap(s) Repeat number: 2 Indications: Polyneuropathy, unspecified; Start: 07-13-2022 End: 01-09-2023 gabapentin 100 mg oral capsu le Dose : 100 mg = 1 cap(s), Oral, TID, # 270 cap(s), 1 Refill(s), Pharmacy: [facility], Peripheral neuropathy, 157.5, cm, 07/13/22 7:59:00 EDT, Height, 101.6, kg, 07/13/22 7:59:00 EDT, Dosing Weight Start Date: 07/13/22 Stop Date: 01/09/23 Status: Ordered Start: 09-01-2021 End: 06-04-2022 gabapentin 100 mg oral capsu le Dose : 100 mg = 1 cap(s), Oral, TID, # 270 cap(s), 1 Refill(s), Pharmacy: [facility], Peripheral neuropathy, 157.5, cm, 12/06/21 7:07:00 EDT, Height, 101.7, kg, 12/06/21 7:07:00 EDT, Dosing Weight Start Date: 12/06/21 Stop Date: 06/04/22 Status: Ordered Start: 06-08-2021 take 3 tablets by mo ut three times daily Gabapentin 100 mg Tablet Active 300 mg PO THREE TIMES A DAY June 08, 2021 12:00am Start: 06-08-2021 End: 08-28-2023 gabapentin 300 mg oral capsu le Dose : 300 mg = 1 cap(s), Oral, TID, # 270 cap(s), 1 Refill(s), Pharmacy: [facility], Peripheral neuropathy, 158, cm, 03/01/23 7:11:00 EST, Height, 99.8, kg, 03/01/23 7:11:00 EST, Dosing Weight Start Date: 03/01/23 Stop Date: 08/28/23 Status: Ordered Start: 10-15-2020 End: 08-28-2021 gabapentin 100 mg oral capsu le Dose : 100 mg = 1 cap(s), Oral, BID, # 180 cap(s), 1 Refill(s), Pharmacy: [facility], Peripheral neuropathy, 157.5, cm, 01/18/21 8:10:00 EST, Height, 106.5, kg, 01/18/21 8:10:00 EST, Dosing Weight Start Date: 03/01/21 Stop Date: 08/28/21 Status: Ordered gabapentin (NEUR ONTIN) 300 MG capsule Indications: Neuropathy Take 100 mg by mouth 2 times daily. Indications: Neuropathy 0 Active Comment on above: gabapentin 100 mg ca psule hydroCHLOROthiazide 25 mg oral tablet (20 sources) Thiazide Diuretic Start : 05-26 hydroCHLOROthiazide 25 mg oral tablet Dose : 25 mg = 1 tab(s), Oral, qDay, # 90 tab(s), 1 Refill(s), Pharmacy: [facility], 155, cm, 06/24/24 8:25:00 EDT, Height, kg, 06/24/24 8:25:00 EDT, Dosing Weight Start Date: 06/24/24 Status: Ordered Quantity: 90.0 Unit: tab(s) Repeat number: 2 Comment on above: Take 1 tablet by abel th once daily. hydrOXYzine pamoate 25 mg oral capsule (2 sources) Antihistamine Start : 09-29 End: 10-03 Vistaril 25 mg oral capsule Dose : 25 mg = 1 cap(s), Oral, QID, PRN for anxiety, # 15 cap(s), 0 Refill(s), 10/03/24 3:14:00 PM EDT Start Date: 09/29/24 Stop Date: 10/03/24 Status: Ordered Quantity: 15.0 Unit: cap(s) Repeat number: 1 lidocaine 0.04 mg/mg medicated patch (8 sources) Antiarrhythmic, Amide Local Anesthetic Start : 04-06 apply 1 dose transdermal route once daily as needed LIDOCAINE PAIN RELIEF 4 % patch 1 Patch once daily as needed. 04/06/2022 Active Start: 04-06-2022 LIDOCAINE PAIN RELIEF 4 % patch 04/06/2022 Active lisinopril 20 mg oral tablet (20 sources) Angiotensin Converting Enzyme Inhibitor Start: 11-26-2020 End: 08-11-2024 lisinopril (ZESTRIL) 20 mg tablet lisinopril 20 mg tablet 11/26/2020 Active Start: 05-26-2013 End: 06-13-2022 take 1 tablet by mouth once daily lisinopril 10 mg tablet Take 1 tablet by mouth once daily. 90 tablet 0 05/26/2013 06/13/2022 Discontinued Comment on above: Take 1 tablet by abel once daily. lisinopril 20 mg tab let losartan potassium 25 mg oral tablet (10 sources) Angiotensin 2 Receptor Jacob Start: 09-16-2024 losartan 25 mg oral tablet Dose : 25 mg = 1 tab(s), Oral, qDay, # 90 tab(s), 1 Refill(s), Pharmacy: [facility], 157, cm, 08/19/24 7:49:00 EDT, Height, kg, 08/19/24 7:49:00 EDT, Dosing Weight Start Date: 09/16/24 Status: Ordered Quantity: 90.0 Unit: tab(s) Repeat number: 2 Start: 06-24-2024 take 1 tablet by mouth once da hodan Losartan 25 mg tablet Active 25 mg PO DAILY August 11, 2024 12:00am Magnesium (14 sources) Start: 06-08-2021 take 250 mg by mouth once daily Magnesium Active 250 MG PO DAILY June 08, 2021 11:45am Start: 06-08-2021 End: 07-25-2023 take 1 tablet by mouth once daily Magnesium 250 mg Tablet Discontinued 250 mg PO DAILY June 08, 2021 12:00am July 25, 2023 7:51am Start: 06-08-2021 take 250 mg by mouth once zeke y Magnesium Active 250 MG PO DAILY June 07, 2021 11:00pm Start: 08-21-2018 take 1 tablet by abel th once daily magnesium (MAGNESIUM-OXIDE) 250 MG TABS tablet Take 250 mg by mouth daily supplement 0 08/21/2018 Active magnesium oxide 250 mg oral tablet (11 sources) Start: 11-21-2018 Mineral Magnes ium 250mg tablet Dose : 250 mg = 1 tab(s), Oral, qDay, 0 Refill(s) Start Date: 11/21/18 Status: Ordered magnesium oxide 200 mg magne sium chew (8 sources) Start: 06-08-2021 magnesium oxid e 200 mg magnesium chew Take by mouth. 06/08/2021 Active Start: 06-08-2021 magnesium oxid e 200 mg magnesium chew Take by mouth. 0 06/08/2021 Active Comment on above: Take by mouth. mecobalamin (8 sources) Start: 08-06-2024 take 1 tablet by mouth once daily Mecobalamin (Vitamin B12) 500 mcg tablet,chewable Active 500 ug PO DAILY August 06, 2024 11:40am Start: 07-02-2024 End: 08-06-2024 take 1 tablet by mouth once daily Mecobalamin (Vitamin B12) 500 mcg tablet,chewable Discontinued 500 ug PO DAILY July 02, 2024 12:44pm August 06, 2024 11:40am Start: 05-05-2024 End: 07-02-2024 take 1 tablet by mouth once daily Mecobalamin (Vitamin B12) 500 mcg tablet,chewable Discontinued 500 ug PO DAILY May 05, 2024 12:04pm July 02, 2024 12:44pm Start: 03-12-2024 End: 05-05-2024 take 1 tablet by mouth once daily Mecobalamin (Vitamin B12) 500 mcg tablet,chewable Discontinued 500 ug PO DAILY March 12, 2024 1:00am May 05, 2024 12:04pm metFORMIN hydrochloride 500 mg oral tablet (20 sources) Biguanide Start: 06-24-2024 MetFORMIN (Eqv -Glucophage XR) 500 mg oral tablet, EXTENDED RELEASE Dose : 1,000 mg = 2 tab(s), Oral, BID, # 360 tab(s), 1 Refill(s), Pharmacy: [facility], 155, cm, 06/24/24 8:25:00 EDT, Height, kg, 06/24/24 8:25:00 EDT, Dosing Weight Start Date: 06/24/24 Status: Ordered Quantity: 360.0 Unit: tab(s) Repeat number: 2 Start: 04-02-2024 End: 08-11-2024 take 1 tablet by mouth every twenty-four hours Metformin 500 mg tablet extended release 24 hr Discontinued mg PO April 02, 2024 1:00am August 11, 2024 3:21pm Start: 03-27-2024 MetFORMIN (Eqv -Glucophage XR) 500 mg oral tablet, EXTENDED RELEASE Dose : 1,000 mg = 2 tab(s), Oral, BID, # 360 tab(s), 1 Refill(s), Pharmacy: [facility], 155, cm, 03/27/24 8:23:00 EST, Height, kg, 03/27/24 8:23:00 EST, Dosing Weight Start Date: 03/27/24 Status: Ordered Quantity: 360.0 Unit: tab(s) Repeat number: 2 Start: 01-03-2024 MetFORMIN (Eqv -Glucophage XR) 500 mg oral tablet, EXTENDED RELEASE Dose : 1,000 mg = 2 tab(s), Oral, BID, # 360 tab(s), 1 Refill(s), Pharmacy: [facility], 157.5, cm, 01/03/24 8:50:00 EDT, Height, kg, 01/03/24 8:50:00 EDT, Dosing Weight Start Date: 01/03/24 Status: Ordered Quantity: 360.0 Unit: tab(s) Repeat number: 2 Start: 09-14-2023 MetFORMIN (Eqv -Glucophage XR) 500 mg oral tablet, EXTENDED RELEASE Dose : 1,000 mg = 2 tab(s), Oral, BID, # 360 tab(s), 1 Refill(s), Pharmacy: [facility], 157, cm, 09/14/23 7:07:00 EDT, Height, kg, 09/14/23 7:07:00 EDT, Dosing Weight Start Date: 09/14/23 Status: Ordered Start: 05-31-2023 MetFORMIN (Eqv -Glucophage XR) 500 mg oral tablet, EXTENDED RELEASE Dose : 1,000 mg = 2 tab(s), Oral, BID, # 360 tab(s), 1 Refill(s), Pharmacy: [facility], 157, cm, 05/31/23 7:12:00 EDT, Height, kg, 05/31/23 7:12:00 EDT, Dosing Weight Start Date: 05/31/23 Status: Ordered Start: 11-15-2012 take 1 tablet by abel th twice daily at mealtime metFORMIN 1,000 mg tablet Indications: Diabetes (HCC) Take 1 tablet by mouth twice daily with meals. 180 tablet 4 11/15/2012 Active take 1 tablet by abel th twice daily at mealtime metFORMIN (GLUCOPHAGE) 500 MG tablet Indications: DM Take 500 mg by mouth 2 times daily (with meals) Indications: DM 0 Active Comment on above: Take 1 tablet by abel th twice daily with meals. methylPREDNISolone (7 sources) Corticosteroid Start: 2022 methylPREDNISolone (MEDROL DOSE-PACK) 4 mg Dose-Pack 07/25/2022 Active montelukast 10 mg oral tablet (9 sources) Leukotriene Receptor Antagonist montelukast (SINGULA IR) 10 MG tablet Indications: Allergies Take 10 mg by mouth as needed 0 Active Multiple Vitamins-Minerals (MULTIVITAMIN ADULT PO) (2 sources) Start: 2018 take 1 tablet by mouth once daily Multiple Vitamins-Minerals (MULTIVITAMIN ADULT PO) Indications: supplement Take 1 tablet by mouth daily 0 04/18/2018 Active Multivitamin preparation (11 sources) Start: 2020 take 1 tablet by mouth once daily Multivitamin Dose = 1 tab(s), Oral, Daily, 0 Refill(s) Start Date: 01/18/21 Status: Ordered nitrofurantoin, macrocrystals 25 mg / nitrofurantoin, monohydrate 75 mg oral capsule (2 sources) Nitrofuran Antibacterial Start: 2023 End: 2023 take 1 capsule by mouth twice daily nitrofurantoin monohydrate and macrocrystal (MACROBID) 100 mg capsule Take 1 capsule by mouth two times a day for 5 days. 10 capsule 01/29/2024 02/03/2024 Active nystatin 100 unt/mg topical powder (20 sources) Polyene Antifungal Start: 2023 nystatin 100,000 units/g topical powder Apply 1 eric, Topical, BID, # 30 gram(s), 5 Refill(s), Pharmacy: [facility], Powder, 157.5, cm, 01/03/24 8:50:00 EDT, Height, 99.9, kg, 01/03/24 8:50:00 EDT, Dosing Weight Start Date: 01/03/24 Status: Ordered Quantity: 30.0 Unit: g Repeat number: 6 Start: 09-14-2023 nystatin 100,0 00 units/g topical powder Apply 1 eric, Topical, BID, # 30 gram(s), 5 Refill(s), Pharmacy: [facility], Powder, 157, cm, 09/14/23 7:07:00 EDT, Height, 101.7, kg, 09/14/23 7:07:00 EDT, Dosing Weight Start Date: 09/14/23 Status: Ordered Start: 05-04-2023 nystatin 100,0 00 units/g topical powder Apply 1 eric, Topical, BID, # 30 gram(s), 5 Refill(s), Pharmacy: [facility], Powder, 157, cm, 05/31/23 7:12:00 EDT, Height, 102.7, kg, 05/31/23 7:12:00 EDT, Dosing Weight Start Date: 05/31/23 Status: Ordered omeprazole 20 mg delayed release oral capsule (20 sources) Proton Pump Inhibitor Start: 06-08-2021 take 1 tablet by mouth once daily Omeprazole Magnesium (Prilosec Otc) 20 mg Tablet,Delayed Release (Dr/Ec) Active 20 MG PO DAILY June 08, 2021 11:45am Start: 08-29-2013 take 1 capsule by mo ut once daily omeprazole (PRILOSEC) 20 mg capsule Indications: Irritable bowel syndrome Take 1 capsule by mouth once daily. 90 capsule 4 08/29/2013 Active Comment on above: Take 1 capsule by mo [facility] once daily. ondansetron 4 mg disintegrating oral tablet (20 sources) Serotonin-3 Receptor Antagonist Start: 10-01-2024 End: 10-13-2024 ondansetron 4 mg oral tablet, disintegrating Dose : 4 mg = 1 tab(s), Oral, q8h, PRN as needed for nausea/vomiting, # 24 EA, 3 Refill(s), Pharmacy: [facility], 157, cm, 10/01/24 13:03:00 EDT, Height, kg, 10/01/24 13:03:00 EDT, Dosing Weight Start Date: 10/01/24 Stop Date: 10/13/24 Status: Ordered Quantity: 24.0 Unit: EA Repeat number: 4 Start: 08-29-2024 Zofran 4 mg or al tablet Dose : 4 mg = 1 tab(s), Oral, q8h, PRN Nausea/Vomiting, # 30 tab(s), 0 Refill(s), Pharmacy: [facility], 157, cm, 08/19/24 7:49:00 EDT, Height, kg, 08/19/24 7:49:00 EDT, Dosing Weight Start Date: 08/29/24 Status: Ordered Quantity: 30.0 Unit: tab(s) Repeat number: 1 Start: 06-24-2024 Zofran 4 mg or al tablet Dose : 4 mg = 1 tab(s), Oral, q8h, PRN Nausea/Vomiting, # 30 tab(s), 0 Refill(s), Pharmacy: [facility], 155, cm, 06/24/24 8:25:00 EDT, Height, kg, 06/24/24 8:25:00 EDT, Dosing Weight Start Date: 06/24/24 Status: Ordered Quantity: 30.0 Unit: tab(s) Repeat number: 1 Start: 03-27-2024 Zofran 4 mg or al tablet Dose : 4 mg = 1 tab(s), Oral, q8h, PRN Nausea/Vomiting, # 30 tab(s), 0 Refill(s), Pharmacy: [facility], 155, cm, 03/27/24 8:23:00 EST, Height, kg, 03/27/24 8:23:00 EST, Dosing Weight Start Date: 03/27/24 Status: Ordered Quantity: 30.0 Unit: tab(s) Repeat number: 1 Start: 01-03-2024 Zofran 4 mg or al tablet Dose : 4 mg = 1 tab(s), Oral, q8h, PRN Nausea/Vomiting, # 30 tab(s), 0 Refill(s), Pharmacy: [facility], 157.5, cm, 01/03/24 8:50:00 EDT, Height, kg, 01/03/24 8:50:00 EDT, Dosing Weight Start Date: 01/03/24 Status: Ordered Quantity: 30.0 Unit: tab(s) Repeat number: 1 Start: 10-30-2023 Zofran 0 Refil l(s) Start Date: 10/30/23 Status: Ordered Start: 10-11-2023 take 1 tablet by abel th every eight hours as needed for nausea and vomiting Ondansetron 4 mg tablet,disintegrating Active 4 mg PO Q8H as needed for nausea and vomiting 90 October 11, 2023 12:00am pantoprazole 40 mg delayed release oral tablet (20 sources) Proton Pump Inhibitor Start: 02-28-2024 pantoprazole 40 mg oral enteric coated tablet Dose : 40 mg = 1 tab(s), Oral, BID, # 180 tab(s), 1 Refill(s), Pharmacy: [facility], 155, cm, 06/24/24 8:25:00 EDT, Height, kg, 06/24/24 8:25:00 EDT, Dosing Weight Start Date: 06/24/24 Status: Ordered Quantity: 180.0 Unit: tab(s) Repeat number: 2 Start: 11-29-2023 End: 01-28-2024 take 1 tablet by mouth twice daily Pantoprazole 40 mg tablet,delayed release (DR/EC) Discontinued 40 mg PO TWICE A DAY 120 60 November 29, 2023 12:00am January 27, 2024 1:00am January 28, 2024 1:08am Start: 03-01-2023 take 1 tablet by abel th twice daily Pantoprazole 20 mg tablet,delayed release (DR/EC) Active 20 mg PO TWICE A DAY July 26, 2023 12:00am Start: 01-23-2023 End: 07-26-2023 Pantoprazole 40 mg tablet,de layed release (DR/EC) Discontinued 20 mg PO TWICE A DAY January 23, 2023 1:00am July 26, 2023 8:30am Start: 01-23-2023 take 20 mg by mouth twice daily Pantoprazole Active 20 MG PO TWICE A DAY January 23, 2023 12:00am Start: 09-30-2021 End: 01-23-2023 take 1 tablet by mouth twice daily Pantoprazole 40 mg tablet,delayed release (DR/EC) Discontinued 40 mg PO TWICE A DAY September 30, 2021 12:00am January 23, 2023 2:50pm PEDIATRIC VITAMINS ACD-IRON PO (7 sources) take 2 tablets by mouth once daily PEDIATRIC VITAMINS ACD-IRON PO Indications: SUPPLEMENT Take 2 tablets by mouth daily Indications: SUPPLEMENT 0 Active polyethylene glycol 3350 64557 mg powder for oral solution (2 sources) Osmotic Laxative Start: Polyethylene Glycol 3350 (Miralax) 17 gram/dose powder Active 238 g PO ONCE 238 March 12, 2024 1:00am mix into 64oz of clear liquid for colonoscopy prep potassium chloride 10 meq oral tablet (20 sources) Start: potassium chloride 10 mEq oral tablet, extended release Dose : 10 mEq = 1 tab(s), Oral, BID, Take with food., # 180 tab(s), 1 Refill(s), Pharmacy: [facility], 155, cm, 06/24/24 8:25:00 EDT, Height, kg, 06/24/24 8:25:00 EDT, Dosing Weight Start Date: 06/24/24 Status: Ordered Quantity: 180.0 Unit: tab(s) Repeat number: 2 Start: 04-02-2024 End: 08-11-2024 Potassium Chloride 10 mEq ta blet extended release Discontinued meq PO April 02, 2024 1:00am August 11, 2024 3:21pm Start: 03-27-2024 potassium chlo ride 10 mEq oral tablet, extended release Dose : 10 mEq = 1 tab(s), Oral, BID, Take with food., # 180 tab(s), 1 Refill(s), Pharmacy: [facility], 155, cm, 03/27/24 8:23:00 EST, Height, kg, 03/27/24 8:23:00 EST, Dosing Weight Start Date: 03/27/24 Status: Ordered Quantity: 180.0 Unit: tab(s) Repeat number: 2 Start: 03-12-2024 take 1 capsule by mo ut twice daily Potassium Chloride 10 mEq capsule, extended release Active 10 meq PO TWICE A DAY March 12, 2024 1:00am Start: 03-05-2024 take 1 tablet by abel th twice daily potassium chloride (K-TAB) 10 mEq tablet Take 10 mEq by mouth two times a day. 03/05/2024 Active Start: 02-22-2024 End: 05-22-2024 potassium chloride 20 mEq or al tablet, extended release Dose : 20 mEq = 1 tab(s), Oral, qDay, Take with food, # 90 tab(s), 0 Refill(s), Pharmacy: [facility], Hypokalemia, 155, cm, 02/22/24 8:19:00 EST, Height, kg, 02/22/24 8:19:00 EST, Dosing Weight Start Date: 02/22/24 Stop Date: 05/22/24 Status: Ordered Quantity: 90.0 Unit: tab(s) Repeat number: 1 Indication: Hypokalemia promethazine hydrochloride 25 mg oral tablet (20 sources) Phenothiazine Start: 11-26-2020 promethazine ( PHENERGAN) 25 mg tablet 25 mg. 11/26/2020 Active take 1 tablet by abel th every six hours as needed for nausea promethazine (PHENERGAN) 25 MG tablet Ta ke 25 mg by mouth every 6 hours as needed for Nausea 0 Active Comment on above: 25 mg. thiamine 250 mg oral tablet (2 sources) Start: 01-18-2021 Vitamin B1 250 mg oral tablet Dose : 250 mg = 1 tab(s), Oral, qWeek, # 100 tab(s), 0 Refill(s) Start Date: 01/18/21 Status: Ordered Vitamin B-12 500 mcg oral tablet (9 sources) Start: 03-27-2024 Vitamin B-12 500 mcg oral tablet Dose : 500 mcg = 1 tab(s), Oral, qDay, # 30 tab(s), 0 Refill(s) Start Date: 03/27/24 Status: Ordered Quantity: 30.0 Unit: tab(s) Repeat number: 1 Vitamin B1 250 mg oral tablet (9 sources) Start: 01-18-2021 Vitamin B1 250 mg oral tablet Dose : 250 mg = 1 tab(s), Oral, qWeek, # 100 tab(s), 0 Refill(s) Start Date: 01/18/21 Status: Ordered VITAMIN D, CHOLECALCIFEROL, PO (9 sources) Start: 08-02-2018 VITAMIN D, CHOLECALCIFEROL, PO Indications: supplement Take 4,000 Int'l Units by mouth daily Indications: supplement 0 08/02/2018 Active Vitamin D3 (11 sources) Start: 02-13-2019 take 1 dose by mouth once daily Vitamin D3 Dose : 10,000 Int unit =, Oral, qDay, 0 Refill(s) Start Date: 02/13/19 Status: Ordered Vitamin D3 10 mcg (400 intl units) oral tablet (9 sources) Start: 03-27-2024 Vitamin D3 10 mcg (400 intl units) oral tablet Dose : 10 mcg = 1 tab(s), Oral, Daily, 0 Refill(s) Start Date: 03/27/24 Status: Ordered Repeat number: 1 Completed/Discontinued Medications Medication Drug Class(es) Dates Sig (Normalized) Sig (Original) 0.25 MG, 0.5 MG Dose 3 ML semaglutide 0.68 MG/ML Pen Injector [Ozempic] (2 sources) Start: 05-31-2023 inject 0.5 mg by subcutaneous injection every week Ozempic 2 mg/3 mL (0.25 mg or 0.5 mg dose) subcutaneous solution Dose : 0.25 mg =, Subcutaneous, qWeek, rotate injection sites, # 1 EA, 0 Refill(s), Pharmacy: [facility], 157, cm, 05/31/23 7:12:00 EDT, Height, kg, 05/31/23 7:12:00 EDT, Dosing Weight Start Date: 05/31/23 Status: Ordered acetaminophen 325 mg / oxyCODONE hydrochloride 5 mg oral tablet (8 sources) Opioid Agonist Start: 03-31-2024 End: 03-31-2024 1 tablet, Oral, Once, On 03/31/24 at 0845, For 1 dose, Maximum dose of acetaminophen is 4000 mg from all sources in 24 hours. Start: 01-02-2024 End: 01-05-2024 Oxycodone-Acetaminophen (Per cocet) 5-325 mg tablet Discontinued 1 {tbl} PO THREE TIMES A DAY as needed for pain 8 January 02, 2024 January 04, 2024 12:00am January 05, 2024 12:15am Start: 08-26-2012 End: 06-13-2022 take 1-2 tablets by mouth every four hours as needed oxyCODONE-acetaminophen (PERCOCET) 5-325 mg tablet 1 to 2 po q 4 hours prn 40 tablet 0 08/26/2012 06/13/2022 Discontinued Comment on above: 1 to 2 po q 4 hours prn [id number] 200 actuat albuterol 0.09 mg/actuat metered dose inhaler (3 sources) beta2-Adrenergic Agonist Start: 11-26-2020 albuterol HFA (PROVENTIL HFA, VENTOLIN HFA) 90 mcg/actuation inhaler Inhale as instructed. 0 11/26/2020 Active take 2 puff(s) by mo uth every four hours as needed for cough albuterol 108 (90 Base) MCG/ACT inhaler INHALE 2 PUFFS BY MOUTH EVERY 4 HOURS NEEDED FOR COUGH Active Comment on above: Inhale as instructed . amitriptyline hydrochloride 25 mg oral tablet (14 sources) Tricyclic Antidepressant Start: End: take 1 tablet by mouth at bedtime Amitriptyline 25 mg tablet Discontinued 25 mg PO AT BEDTIME November 30, 2023 6:28pm August 11, 2024 3:19pm cephalexin 500 mg oral capsule (5 sources) Cephalosporin Antibacterial Start: End: take 1 capsule by mouth twice daily Cephalexin 500 mg capsule Discontinued 500 mg PO TWICE A DAY January 29, 2024 1:00am February 19, 2024 11:33am cholecalciferol 0.01 mg oral capsule (20 sources) Vitamin D Start: 025 End: Cholecalciferol (Vitamin D3) (Vitamin D3) 10 mcg (400 unit) tablet Discontinued PO DAILY April 02, 2024 1:00am July 02, 2024 12:44pm Start: 03-12-2024 End: 08-08-2024 take 1 capsule by mouth once daily Cholecalciferol (Vitamin D3) 10 mcg (400 unit) capsule Discontinued 10 ug PO daily July 02, 2024 12:44pm August 08, 2024 12:11pm Start: 06-08-2021 End: 07-25-2023 take 1 tablet by mouth once daily Cholecalciferol (Vitamin D3) (Vitamin D3) 125 mcg (5,000 unit) Tablet Discontinued 250 ug PO DAILY June 08, 2021 12:00am July 25, 2023 7:51am Start: 02-13-2019 take 1 tablet by abel once daily cholecalciferol (VITAMIN D-3) 400 unit tab Take 400 Units by mouth once daily. 02/13/2019 Active Start: 02-13-2019 take 1 capsule by mo [facility] once daily cholecalciferol, vitamin D3, 10 mcg (400 unit) cap Dose : 10,000 Int unit =, Oral, qDay, 0 Refill(s) 02/13/2019 Active Comment on above: Dose : 10,000 Int unit =, Oral, qDay, 0 Refill(s) colistin 3 mg/ml / hydrocortisone 10 mg/ml / neomycin 3.3 mg/ml / thonzonium bromide 0.5 mg/ml otic suspension (4 sources) Aminoglycoside Antibacterial, Corticosteroid Start: 11-15-2012 [place]v-Tlt[place]o nzonium (CORTISPORIN-TC) otic suspension Use 3 Drops in the ears four times daily. 10 mL 0 11/15/2012 Active Comment on above: Use 3 Drops in the e ars four times daily. 0.5 ml dulaglutide 1.5 mg/ml auto-injector (8 sources) GLP-1 Receptor Agonist Start: 09-17-2023 End: 01-04-2024 Dulaglutide (Trulicity) 0.75 mg/0.5 mL pen injector Discontinued 0.75 mg SC MO September 17, 2023 12:00am January 04, 2024 2:17pm Start: 09-14-2023 inject 0.5 mL by sub cutaneous injection every week Trulicity Pen 0.75 mg/0.5 mL subcutaneous solution Dose : 0.75 mg = 0.5 mL, Subcutaneous, qWeek, rotate injection sites, # 12 EA, 1 Refill(s), 0.5 mL/Pen, Pharmacy: [facility], 157, cm, 09/14/23 7:07:00 EDT, Height, kg, 09/14/23 7:07:00 EDT, Dosing Weight Start Date: 09/14/23 Status: Ordered Start: 08-03-2023 inject 0.5 mL by sub cutaneous injection every week Trulicity Pen 0.75 mg/0.5 mL subcutaneous solution Dose : 0.75 mg = 0.5 mL, Subcutaneous, qWeek, rotate injection sites, # 2.5 mL, 0 Refill(s), 0.5 mL/Pen, Pharmacy: [facility], 157.48, cm, 06/29/23 8:33:00 EDT, Height, kg, 06/29/23 8:33:00 EDT, Dosing Weight Start Date: 08/03/23 Status: Ordered guar gum (4 sources) Start: 09-28-2012 take 1 g by mouth tw ice daily Guar Gum 1 gram chew Take by mouth twice daily. 0 09/28/2012 Active Start: 09-28-2012 Guar Gum (CHEW ABLE FIBER) 1 gram Chew Take by mouth twice daily. 0 09/28/2012 Active Comment on above: Take by mouth twice daily. ibuprofen 600 mg oral tablet (4 sources) Nonsteroidal Anti-inflammatory Drug Start: 013 End: 023 take 1 tablet by mouth every six hours as needed ibuprofen 600 mg tablet Take 1 tablet by mouth every 6 hours as needed for Pain. 0 11/15/2012 06/13/2022 Discontinued Comment on above: Take 1 tablet by abel every 6 hours as needed for Pain. ketotifen 0.25 mg/ml ophthalmic solution (1 source) Histamine-1 Receptor Inhibitor ketotifen fumarate (ZADITOR) 0.025 % (0.035 %) ophthalmic solution ketotifen 0.025 % (0.035 %) eye drops 0 Active Comment on above: ketotifen 0.025 % (0 .035 %) eye drops metoclopramide 5 mg oral tablet (4 sources) Dopamine-2 Receptor Antagonist Start: End: take 1 tablet by mouth 30 minutes before mealtime Metoclopramide Hcl 5 mg tablet Discontinued 5 mg PO before meals 90 September 30, 2021 12:00am October 29, 2021 12:00am October 30, 2021 12:04am administer 30 minutes before meals Mupirocin (2 sources) RNA Synthetase Inhibitor Antibacterial Start: End: Mupirocin 2 % ointment Discontinued 1 NMA TOPICAL daily February 19, 2024 1:00am August 11, 2024 3:21pm Apply to the affected areas once a day and cover with gauze. vitamin b12 0.5 mg oral tablet (20 sources) Vitamin B12 Start: End: Cyanocobalamin (Vitamin B-12) 500 mcg tablet Discontinued ug PO DAILY April 02, 2024 1:00am July 02, 2024 12:44pm Start: 01-18-2021 take 1 dose by mouth every week Vitamin B12 Dose : 250 mcg =, Oral, qWeek, 0 Refill(s) Start Date: 01/18/21 Status: Ordered Start: 01-18-2021 Vitamin B12 0 Refill(s) Start Date: 01/18/21 Status: Ordered Start: 04-16-2018 Cyanocobalamin (VITAMIN B-12) 1000 MCG SUBL Indications: supplement Place 1,000 mcg under the tongue daily 0 04/16/2018 Active take 1 tablet by abel th once daily cyanocobalamin (VITAMIN B-12) 500 mcg tablet Take 1 tablet by mouth once daily. Active Problems Active Problems Problem Classification Problem Date Documented Da te Episodic/Chronic Abdominal pain (1 source) Right upper quadrant pain; Translations: [RUQ abdominal pain] Episodic Acquired foot deformities (4 sources) Other hammer toe(s) (acquired), left foot; Translations: [Hammer toe] Onset: 3 Chronic Acquired foot deformities (4 sources) Bunion 08-19-2024 Episodic Allergic reactions (6 sources) Urticaria; Translations: [Urticaria, unspecified] 11-16-2022 Episodic Anxiety disorders (20 sources) Generalized anxiety disorder; Translations: [Generalized anxiety disorder] Onset: 4 01-01-2020 Chronic Calculus of urinary tract (20 sources) Kidney stone 03-03-2014 Episodic Coagulation and hemorrhagic disorders (9 sources) Spontaneous ecchymoses; Translations: [Petechiae] Onset: 4 Episodic Complication of device; implant or graft (2 sources) Pain; Translations: [Pain due to internal orthopedic prosthetic devices, implants and grafts, initial encounter] Onset: 5 09-08-2024 Episodic Complications of surgical procedures or medical care (2 sources) 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; Translations: [Pseudarthrosis after fusion or arthrodesis] Onset: 5 09-08-2024 Episodic Deficiency and other anemia (1 source) Anemia; Translations: [Anemia, unspecified] 03-11-2024 Episodic Diabetes mellitus with complications (4 sources) Mixed hyperlipidemia due to type 2 diabetes mellitus 06-24-2024 Chronic Diabetes mellitus without complication (20 sources) Diabetes mellitus; Translations: [Type 2 diabetes mellitus without complication] Onset: 4 Resolved: 9 07-24-2018 Chronic Disorders of lipid metabolism (20 sources) Hypercholesterolemia; Translations: [Hyperlipidemia] Onset: 4 Resolved: 9 07-24-2018 Chronic Disorders of teeth and jaw (4 sources) Other specified disorders of teeth and supporting structures; Translations: [Toothache] Onset: 5 Episodic E Codes: Fall (2 sources) Fall; Translations: [Unspecified fall, initial encounter] Onset: 5 Episodic Esophageal disorders (20 sources) Gastroesophageal reflux disease; Translations: [Gastro-esophageal reflux disease without esophagitis] Onset: 9 07-24-2018 Chronic Essential hypertension (20 sources) Hypertensive disorder; Translations: [Essential hypertension] Onset: 4 Resolved: 9 07-24-2018 Chronic Fluid and electrolyte disorders (15 sources) Hyponatremia 11-21-2018 Episodic Genitourinary symptoms and ill-defined conditions (11 sources) Unspecified symptoms and signs involving the genitourinary system; Translations: [Dysuria] Onset: 4 Episodic Joint disorders and dislocations; trauma-related (18 sources) Tear of medial meniscus of knee 06-29-2023 Episodic Nausea and vomiting (11 sources) Nausea; Translations: [Nausea] Onset: 5 01-11-2023 Episodic Nutritional deficiencies (20 sources) Iron deficiency; Translations: [Vitamin D deficiency] Onset: 5 01-18-2021 Chronic Osteoarthritis (18 sources) Osteoarthritis of right knee joint 05-11-2023 Chronic Other and unspecified benign neoplasm (4 sources) History of polyp of colon; Translations: [History of colonic polyps] 08-14-2024 Episodic Other connective tissue disease (5 sources) Bursitis of knee 08-08-2024 Episodic Other connective tissue disease (1 source) Pain in left foot; Translations: [Pain in left foot] 09-08-2024 Episodic Other connective tissue disease (1 source) Pain in left foot; Translations: [Pain in left foot] Onset: 5 Episodic Other female genital disorders (1 source) Pruritus of vagina; Translations: [Other specified noninflammatory disorders of vagina] 01-29-2024 Episodic Other gastrointestinal disorders (12 sources) Intestinal malabsorption; Translations: [Intestinal malabsorption, unspecified] Onset: 9 07-30-2018 Chronic Other gastrointestinal disorders (20 sources) Irritable bowel syndrome 03-03-2014 Chronic Other gastrointestinal disorders (4 sources) Dysphagia; Translations: [Dysphagia, unspecified] 01-11-2023 Episodic Other gastrointestinal disorders (2 sources) Other dysphagia; Translations: [Other dysphagia] Onset: 4 Episodic Other injuries and conditions due to external causes (5 sources) Abrasion and/or friction burn of skin 08-06-2024 Episodic Other injuries and conditions due to external causes (5 sources) History of fall 08-06-2024 Episodic Other liver diseases (11 sources) Steatosis of liver; Translations: [Fatty (change of) liver, not elsewhere classified] Onset: 9 07-24-2018 Chronic Other nervous system disorders (20 sources) Peripheral nerve disease 04-24-2019 Chronic Other nervous system disorders (3 sources) Other chronic pain; Translations: [Other chronic pain] Onset: 4 Chronic Other non-traumatic joint disorders (2 sources) Shoulder pain; Translations: [Pain in unspecified shoulder] 10-24-2023 Episodic Other nutritional; endocrine; and metabolic disorders (20 sources) Morbid obesity; Translations: [Morbid (severe) obesity due to excess calories] Onset: 9 07-24-2018 Chronic Other nutritional; endocrine; and metabolic disorders (20 sources) Body mass index 40+ - severely obese; Translations: [Morbid (severe) obesity due to excess calories] Onset: 3 11-15-2012 Chronic Other screening for suspected conditions (not mental disorders or infectious disease) (7 sources) Patient encounter status; Translations: [Encounter for screening for malignant neoplasm of colon] Episodic Other skin disorders (20 sources) Hidradenitis suppurativa 04-15-2020 Episodic Other upper respiratory disease (20 sources) Allergic rhinitis 04-15-2020 Chronic Other upper respiratory infections (9 sources) Bacterial sinusitis; Translations: [Chronic sinusitis, unspecified] Chronic Other upper respiratory infections (1 source) Pharyngitis; Translations: [Acute pharyngitis, unspecified] Episodic Otitis media and related conditions (20 sources) Chronic mucoid otitis media 01-18-2021 Chronic Residual codes; unclassified (20 sources) Obstructive sleep apnea syndrome; Translations: [Obstructive sleep apnea (adult) (pediatric)] Onset: 3 07-24-2018 Chronic Residual codes; unclassified (20 sources) Sleep apnea 12-19-2017 Chronic Residual codes; unclassified (3 sources) Obstructive sleep apnea (adult) (pediatric); Translations: [Obstructive sleep apnea (adult) (pediatric)] Onset: 5 Chronic Residual codes; unclassified (1 source) Dependence on other enabling machines and devices; Translations: [Dependence on other enabling machines and devices] Onset: 5 Chronic Residual codes; unclassified (1 source) History of cholecystectomy; Translations: [Hx of cholecystectomy] Episodic Residual codes; unclassified (20 sources) Chronic back pain 03-03-2014 Episodic Residual codes; unclassified (12 sources) Flushing 04-24-2019 Episodic Residual codes; unclassified (20 sources) Uterine cervix absent 01-18-2021 Episodic Residual codes; unclassified (11 sources) Peripheral edema 02-22-2024 Episodic Residual codes; unclassified (1 source) Noncompliance with medication regimen; Translations: [Patient's unintentional underdosing of medication regimen for other reason] Onset: 5 Episodic Residual codes; unclassified (1 source) Patient's unintentional underdosing of medication regimen for other reason; Translations: [Patient's unintentional underdosing of medication regimen for other reason] Onset: 5 Episodic Substance-related disorders (2 sources) Benzodiazepine withdrawal 10-01-2024 Chronic Superficial injury; contusion (8 sources) Contusion of rib; Translations: [Contusion of unspecified front wall of thorax, initial encounter] Onset: 5 Episodic Unclassified (20 sources) History of bypass of stomach 01-01-2020 Unclassified (20 sources) Statin not tolerated (context-dependent category) 09-01-2021 Unclassified (19 sources) Bilateral talipes equinovarus 11-30-2022 Unclassified (1 source) Low back pain, unspecified; Translations: [Low back pain, unspecified] Onset: 5 Unclassified (5 sources) Patient encounter status 08-06-2024 Unclassified (1 source) Gladys-Danlos syndrome, unspecified; 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, unspecified] Onset: 5 Unclassified (1 source) Low back pain, unspecified; Translations: [Low back pain, unspecified] Onset: 5 Unclassified (1 source) Personal history of colon polyps, unspecified; Translations: [Personal history of colon polyps, unspecified] Onset: 5 Past or Other Problems Problem Classification Problem Date Documented Date Episodic/Chronic Abdominal hernia (20 sources) Paraesophageal hernia; Translations: [Irreducible incisional hernia] Onset: 2 07-26-2018 Episodic Biliary tract disease (12 sources) Chronic cholecystitis; Translations: [Chronic cholecystitis] Onset: 2 02-16-2012 Episodic Deficiency and other anemia (3 sources) Anemia, unspecified; Translations: [Anemia, unspecified type] Onset: 4 Episodic Nonmalignant breast conditions (15 sources) Large breast; Translations: [Hypertrophy of breast] Onset: 3 07-26-2022 Episodic Nutritional deficiencies (20 sources) Deficiency of multiple nutrient elements; Translations: [Zinc deficiency] Onset: 9 07-30-2018 Episodic Other ear and sense organ disorders (12 sources) Ear problem; Translations: [Unspecified disorder of ear, unspecified ear] Onset: 3 11-15-2012 Episodic Other gastrointestinal disorders (3 sources) Dysphagia, unspecified; Translations: [Dysphagia, unspecified] 01-11-2023 Episodic Other gastrointestinal disorders (7 sources) Bariatric surgery status; Translations: [Bariatric surgery status] Onset: 4 01-11-2023 Episodic Other gastrointestinal disorders (1 source) Dysphagia, pharyngoesophageal phase; Translations: [Dysphagia, pharyngoesophageal phase] Onset: 4 Episodic Other inflammatory condition of skin (7 sources) Intertrigo; Translations: [Erythema intertrigo] Onset: 3 07-26-2022 Episodic Other lower respiratory disease (11 sources) Dyspnea on exertion; Translations: [Shortness of breath] Onset: 9 07-24-2018 Episodic Other non-traumatic joint disorders (2 sources) Pain in unspecified shoulder; Translations: [Pain in unspecified shoulder] Onset: 4 Episodic Other nutritional; endocrine; and metabolic disorders (2 sources) Abnormal weight gain; Translations: [Abnormal weight gain] Onset: 4 Episodic Residual codes; unclassified (2 sources) Edema, unspecified; Translations: [Edema, unspecified] Onset: 4 Episodic Skin and subcutaneous tissue infections (20 sources) Infection of skin; Translations: [Local infection of the skin and subcutaneous tissue, unspecified] Onset: 2 02-16-2012 Episodic Spondylosis; intervertebral disc disorders; other back problems (20 sources) Backache; Translations: [Neck pain] Onset: 9 07-24-2018 Episodic Results Test Name Value Interpretation Reference Range Facility 25(OH)D3 SerPl-mCncon 2024 25-hydroxyvitamin D3 [Mass/Vol] 29.6 ng/mL Low 30.0-100.0 [facility] Comment on above: Order Comment: Speci men Type: BLOOD SPECIMEN Ordering Facility: [facility] Address: [address] [place] [address] Result Comment: Defi ciency\X09\Less than 20 ng/mL Insufficiency\X09\20 - Less than 30 ng/mL Sufficiency\X09\30 - 100 ng/mL Performed By: #### 1 989-3 #### [facility] CLIA [id number] [address] [place] [address] [place] CBC W Auto Differential pane l (Bld)on 10-16-2024 Basophils (Bld) [#/Vol] 10*3/uL Normal <0.11 [facility] Comment on above: Order Comment: Speci men Type: BLOOD SPECIMEN Ordering Facility: [facility] Address: [address] [place] [address] Performed By: #### 5 7021-8 #### [facility] CLIA [id number] [address] [place] [address] [place] Basophils/100 WBC (Bld) 0.4 % Normal [facility] Comment on above: Order Comment: Speci men Type: BLOOD SPECIMEN Ordering Facility: [facility] Address: [address] [place] [address] Performed By: #### 5 7021-8 #### [facility] CLIA [id number] [address] [place] [address] [place] Differential cell count method Nom (Bld) Auto Normal [facility] Comment on above: Order Comment: Speci men Type: BLOOD SPECIMEN Ordering Facility: [facility] Address: [address] [place] [address] Performed By: #### 5 7021-8 #### [facility] CLIA [id number] [address] [place] [address] [place] Eosinophils (Bld) [#/Vol] 0.11 10*3/uL Normal <0.46 [facility] Comment on above: Order Comment: Speci men Type: BLOOD SPECIMEN Ordering Facility: [facility] Address: [address] [place] [address] Performed By: #### 5 7021-8 #### [facility] CLIA [id number] [address] [place] [address] [place] Eosinophils/100 WBC (Bld) 2.1 % Normal [facility] Comment on above: Order Comment: Speci men Type: BLOOD SPECIMEN Ordering Facility: [facility] Address: [address] [place] [address] Performed By: #### 5 7021-8 #### [facility] CLIA [id number] [address] [place] [address] [place] Erythrocyte distribution width (RBC) [Ratio] 11.7 % Normal 11.5-15.0 [facility] Comment on above: Order Comment: Speci men Type: BLOOD SPECIMEN Ordering Facility: [facility] Address: [address] [place] [address] Performed By: #### 5 7021-8 #### [facility] CLIA [id number] [address] [place] [address] [place] Hematocrit (Bld) [Volume fraction] 40.4 % Normal 36.0-46.0 [facility] Comment on above: Order Comment: Speci men Type: BLOOD SPECIMEN [facility] Address: [address] [place] [address] Performed By: #### 5 7021-8 #### [facility] CLIA [id number] [address] [place] [address] [place] Hemoglobin (Bld) [Mass/Vol] 13.2 g/dL Normal 11.5-15.5 [facility] Comment on above: Order Comment: Speci men Type: BLOOD SPECIMEN [facility] Address: [address] [place] [address] Performed By: #### 5 7021-8 #### [facility] CLIA [id number] [address] [place] [address] [place] Immature granulocytes (Bld) [#/Vol] 10*3/uL Normal <0.10 [facility] Comment on above: Order Comment: Speci men Type: BLOOD SPECIMEN Ordering Facility: [facility] Address: [address] [place] [address] Performed By: #### 5 7021-8 #### [facility] CLIA [id number] [address] [place] [address] [place] Immature granulocytes/100 WBC (Bld) 0.4 % Normal [facility] Comment on above: Order Comment: Speci men Type: BLOOD SPECIMEN Ordering Facility: [facility] Address: [address] [place] [address] Performed By: #### 5 7021-8 #### [facility] CLIA [id number] [address] [place] [address] [place] Lymphocytes (Bld) [#/Vol] 1.92 10*3/uL Normal 1.00-4.00 [facility] Comment on above: Order Comment: Speci men Type: BLOOD SPECIMEN Ordering Facility: [facility] Address: [address] [place] [address] Performed By: #### 5 7021-8 #### [facility] CLIA [id number] [address] [place] [address] [place] Lymphocytes/100 WBC (Bld) 37.0 % Normal [facility] Comment on above: Order Comment: Speci men Type: BLOOD SPECIMEN Ordering Facility: [facility] Address: [address] [place] [address] Performed By: #### 5 7021-8 #### [facility] CLIA [id number] [address] [place] [address] [place] MCH (RBC) [Entitic mass] 30.4 pg Normal 26.0-34.0 [facility] Comment on above: Order Comment: Speci men Type: BLOOD SPECIMEN [facility] Address: [address] [place] [address] Performed By: #### 5 7021-8 #### [facility] CLIA [id number] [address] [place] [address] [place] MCHC (RBC) [Mass/Vol] 32.7 g/dL Normal 30.5-36.0 [facility] Comment on above: Order Comment: Speci men Type: BLOOD SPECIMEN Ordering Facility: [facility] Address: [address] [place] [address] Performed By: #### 5 7021-8 #### [facility] CLIA [id number] [address] [place] [address] [place] MCV (RBC) [Entitic vol] 93.1 fL Normal 80.0-100.0 [facility] Comment on above: Order Comment: Speci men Type: BLOOD SPECIMEN [facility] Address: [address] [place] [address] Performed By: #### 5 7021-8 #### [facility] CLIA [id number] [address] [place] [address] [place] Monocytes (Bld) [#/Vol] 0.32 10*3/uL Normal <0.87 [facility] Comment on above: Order Comment: Speci men Type: BLOOD SPECIMEN Ordering Facility: [facility] Address: [address] [place] [address] Performed By: #### 5 7021-8 #### [facility] CLIA [id number] [address] [place] [address] [place] Monocytes/100 WBC (Bld) 6.2 % Normal [facility] Comment on above: Order Comment: Speci men Type: BLOOD SPECIMEN Ordering Facility: [facility] Address: [address] [place] [address] Performed By: #### 5 7021-8 #### [facility] CLIA [id number] [address] [place] [address] [place] Neutrophils (Bld) [#/Vol] 2.80 10*3/uL Normal 1.45-7.50 [facility] Comment on above: Order Comment: Speci men Type: BLOOD SPECIMEN Ordering Facility: [facility] Address: [address] [place] [address] Performed By: #### 5 7021-8 #### [facility] CLIA [id number] [address] [place] [address] [place] Neutrophils/100 WBC (Bld) 53.9 % Normal [facility] Comment on above: Order Comment: Speci men Type: BLOOD SPECIMEN Ordering Facility: [facility] Address: [address] [place] [address] Performed By: #### 5 7021-8 #### [facility] CLIA [id number] [address] [place] [address] [place] Nucleated RBC (Bld) [#/Vol] 10*3/uL Normal <0.01 [facility] Comment on above: Order Comment: Speci men Type: BLOOD SPECIMEN Ordering Facility: [facility] Address: [address] [place] [address] Performed By: #### 5 7021-8 #### [facility] CLIA [id number] [address] [place] [address] [place] Nucleated RBC/100 WBC (Bld) [Ratio] 0.0 /100 WBC Normal [facility] Comment on above: Order Comment: Speci men Type: BLOOD SPECIMEN [facility] Address: [address] [place] [address] Performed By: #### 5 7021-8 #### [facility] CLIA [id number] [address] [place] [address] [place] Platelet mean volume (Bld) [Entitic vol] 10.5 fL Normal 9.0-12.7 [facility] Comment on above: Order Comment: Speci men Type: BLOOD SPECIMEN [facility] Address: [address] [place] [address] Performed By: #### 5 7021-8 #### [facility] CLIA [id number] [address] [place] [address] Platelets (Bld) [#/Vol] 240 10*3/uL Normal 150-400 [facility] Comment on above: Order Comment: Speci men Type: BLOOD SPECIMEN Ordering Facility: [facility] Address: [address] [place] [address] Performed By: #### 5 7021-8 #### [facility] CLIA [id number] [address] [place] [address] [place] RBC (Bld) [#/Vol] 4.34 10*6/uL Normal 3.90-5.20 [facility] Comment on above: Order Comment: Speci men Type: BLOOD SPECIMEN [facility] Address: [address] [place] [address] Performed By: #### 5 7021-8 #### [facility] CLIA [id number] [address] [place] [address] [place] WBC (Bld) [#/Vol] 5.19 10*3/uL Normal 3.70-11.00 [facility] Comment on above: Order Comment: Speci men Type: BLOOD SPECIMEN Ordering Facility: [facility] Address: [address] [place] [address] Performed By: #### 5 7021-8 #### [facility] CLIA [id number] [address] [place] [address] [place] Comprehensive metabolic 2000 panelon 10-16-2024 Albumin [Mass/Vol] 3.8 g/dL Normal 3.2-5.0 [facility] Comment on above: Order Comment: Speci men Type: BLOOD SPECIMEN Ordering Facility: [facility] Address: [address] [place] [address] Performed By: #### 2 4323-8 #### [facility] CLIA [id number] [address] [place] [address] [place] ALP [Catalytic activity/Vol] 141 U/L High 45-117 [facility] Comment on above: Order Comment: Speci men Type: BLOOD SPECIMEN Ordering Facility: [facility] Address: [address] [place] [address] Performed By: #### 2 4323-8 #### [facility] CLIA [id number] [address] [place] [address] [place] ALT [Catalytic activity/Vol] 79 U/L High 13-61 [facility] Comment on above: Order Comment: Speci men Type: BLOOD SPECIMEN Ordering Facility: [facility] Address: [address] [place] [address] Result Comment: Resu lts may be falsely depressed after the administration of Sulfasalazine and/or Sulfapyridine. Performed By: #### 2 4323-8 #### [facility] CLIA [id number] [address] [place] [address] [place] Anion gap [Moles/Vol] 7 mmol/L Normal 5-16 [facility] Comment on above: Order Comment: Speci men Type: BLOOD SPECIMEN Ordering Facility: [facility] Address: [address] [place] [address] Performed By: #### 2 4323-8 #### [facility] CLIA [id number] [address] [place] [address] [place] AST [Catalytic activity/Vol] 66 U/L High 8-34 [facility] Comment on above: Order Comment: Speci men Type: BLOOD SPECIMEN [facility] Address: [address] [place] [address] Result Comment: Resu lts may be falsely depressed after the administration of Sulfasalazine and/or Sulfapyridine. Performed By: #### 2 4323-8 #### [facility] CLIA [id number] [address] [place] [address] [place] Bilirubin [Mass/Vol] 0.3 mg/dL Normal 0.2-1.0 [facility] Comment on above: Order Comment: Speci men Type: BLOOD SPECIMEN Ordering Facility: [facility] Address: [address] [place] [address] Performed By: #### 2 4323-8 #### [facility] CLIA [id number] [address] [place] [address] [place] Calcium [Mass/Vol] 9.7 mg/dL Normal 8.5-10.5 [facility] Comment on above: Order Comment: Speci men Type: BLOOD SPECIMEN Ordering Facility: [facility] Address: [address] [place] [address] Performed By: #### 2 4323-8 #### [facility] CLIA [id number] [address] [place] [address] [place] Chloride [Moles/Vol] 102 mmol/L Normal 98-107 [facility] Comment on above: Order Comment: Speci men Type: BLOOD SPECIMEN Ordering Facility: [facility] Address: [address] [place] [address] Performed By: #### 2 4323-8 #### [facility] CLIA [id number] [address] [place] [address] [place] CO2 [Moles/Vol] 30 mmol/L Normal 21-32 [facility] Comment on above: Order Comment: Speci men Type: BLOOD SPECIMEN Ordering Facility: [facility] Address: [address] [place] [address] Performed By: #### 2 4323-8 #### [facility] CLIA [id number] [address] [place] [address] [place] Creatinine [Mass/Vol] 0.94 mg/dL Normal 0.51-0.95 [facility] Comment on above: Order Comment: Speci men Type: BLOOD SPECIMEN Ordering Facility: [facility] Address: [address] [place] [address] Result Comment: Vane ents receiving either N-Acetylcysteine (NAC) or Metamizole prior to venipuncture, may have falsely depressed results. Performed By: #### 2 4323-8 #### [facility] CLIA [id number] [address] [place] [address] [place] eGFRcr SerPlBld CKD-EPI 2020 72 mL/min/1.73m??? Normal >=60 [facility] Comment on above: Order Comment: Nicholas diaz Type: BLOOD SPECIMEN Ordering Facility: [facility] Address: [address] [place] [address] Result Comment: Tessa mated Glomerular Filtration Rate (eGFR) is calculated using the 2020 CKD-EPI creatinine equation. This equation utilizes serum creatinine, sex, and age as parameters. The creatinine assay has traceable calibration to isotope dilution-mass spectrometry. Refer to KDIGO guidelines for clinical interpretation. In patients with unstable renal function, e.g. those with acute kidney injury, the eGFR may not accurately reflect actual GFR. Performed By: #### 2 4323-8 #### [facility] CLIA [id number] [address] [place] [address] [place] Glucose [Mass/Vol] 157 mg/dL High 70-100 [facility] Comment on above: Order Comment: Nicholas diaz Type: BLOOD SPECIMEN Ordering Facility: [facility] Address: [address] [place] [address] Result Comment: The [place] Diabetes Association (ADA) provides guidance for cutoff values for fasting glucose and random glucose. The ADA defines fasting as no caloric intake for at least 8 hours. Fasting plasma glucose results between 100 to 125 mg/dL indicate increased risk for diabetes (prediabetes). Fasting plasma glucose results greater than or equal to 126 mg/dL meet the criteria for diagnosis of diabetes. In the absence of unequivocal hyperglycemia, results should be confirmed by repeat testing. In a patient with classic symptoms of hyperglycemia or hyperglycemic crisis, random plasma glucose results greater than or equal to 200 mg/dL meet the criteria for diagnosis of diabetes. Reference: Standards of Medical Care in Diabetes 2016, [place] Diabetes Association. Diabetes Care. 2016.39(Suppl 1). Results may be falsely elevated after the administration of Sulfapyridine. Results may be falsely depressed after the administration of Sulfasalazine. Performed By: #### 2 4323-8 #### [facility] CLIA [id number] [address] [place] [address] [place] Potassium [Moles/Vol] 4.5 mmol/L Normal 3.5-5.1 [facility] Comment on above: Order Comment: Speci men Type: BLOOD SPECIMEN [facility] Address: [address] [place] [address] Performed By: #### 2 4323-8 #### [facility] CLIA [id number] [address] [place] [address] [place] Protein [Mass/Vol] 7.1 g/dL Normal 6.0-8.5 [facility] Comment on above: Order Comment: Speci men Type: BLOOD SPECIMEN [facility] Address: [address] [place] [address] Performed By: #### 2 4323-8 #### [facility] CLIA [id number] [address] [place] [address] [place] Sodium [Moles/Vol] 139 mmol/L Normal 136-145 [facility] Comment on above: Order Comment: Speci men Type: BLOOD SPECIMEN [facility] Address: [address] [place] [address] Performed By: #### 2 4323-8 #### [facility] CLIA [id number] [address] [place] [address] [place] Urea nitrogen [Mass/Vol] 10 mg/dL Normal 7-26 [facility] Comment on above: Order Comment: Speci men Type: BLOOD SPECIMEN Ordering Facility: [facility] Address: [address] [place] [address] Performed By: #### 2 4323-8 #### [facility] CLIA [id number] [address] [place] [address] [place] ECG COMPLETEon 10-16-2024 ECG COMPLETE Ventricular Rate : 5 5 BPM Atrial Rate : 55 BPM P-R Interval : 140 ms QRS Duration : 98 ms Q-T Interval : 424 ms QTC Calculation(Bazett) : 405 ms Calculated P [place] : 21 degrees Calculated R [place] : -30 degrees Calculated T [place] : 48 degrees Sinus bradycardia Left axis deviation Nonspecific T wave abnormality Abnormal ECG No previous ECGs available Confirmed by GEMA GONZALEZ MD ([id number]) on 10/19/2024 12:14:12 AM NAME : BELLE HAMM PID : [id number] : 1970 Gender : Female Race : ORD : [id number] Procedure Date : Oct 16 2024 08:39:47 Edit Date : Oct 19 2024 00:14:15 Diagnosis: Sinus bradycardia Left axis deviation Nonspecific T wave abnormality Abnormal ECG No previous ECGs available Confirmed by GEMA GONZALEZ MD ([id number]) on 10/19/2024 12:14:12 AM Test Reason : pre testing Location : 152 : [facility] Overread By : GEMA GONZALEZ MD Edited By : GEMA GONZALEZ MD Referred By : EVELIO MATHIS Acquired by : valeri [facility] HbA1c (Bld)on 10-16-2024 Average glucose Estimated from glycated hemoglobin (Bld) [Mass/Vol] 157 mg/dL [facility] Comment on above: Order Comment: Nicholas diaz Type: BLOOD SPECIMEN Ordering Facility: [facility] Address: [address] [place] [address] Result Comment: eAG: (Estimated average glucose) is a calculated value from HgbA1c and is community health representative of the average blood glucose level in the last 2-3 month period. Performed By: #### 5 5454-3 #### [facility] CLIA [id number] [address] [place] [address] [place] HbA1c (Bld) [Mass fraction] 7.1 % High 4.3-5.6 [facility] Comment on above: Order Comment: Nicholas diaz Type: BLOOD SPECIMEN Ordering Facility: [facility] Address: [address] [place] [address] Result Comment: Brett ican Diabetes Association guidelines indicate that patients with HgbA1c in the range 5.7-6.4% are at increased risk for development of diabetes, and intervention by lifestyle modification may be beneficial. HgbA1c greater or equal to 6.5% is considered diagnostic of diabetes. Performed By: #### 5 5454-3 #### [facility] CLIA [id number] [address] [place] [address] OF [facility] HFPon 10-02-2024 Bili Indirect 0.4 mg/dL Normal [facility] Comment on above: Performed By: #### H FP ####[address] [place], [place] [address] Albumin Level 3.8 G/dL Normal 3.5-5.0 [facility] Comment on above: Performed By: #### H FP ####[address] [place], [place] [address] Albumin/Globulin [Mass ratio] 1.1 {ratio} Normal 1.1-2.5 [facility] Comment on above: Performed By: #### H FP ####[address] [place], [place] [address] ALP [Catalytic activity/Vol] 77 U/L Normal 40-135 [facility] Comment on above: Performed By: #### H FP ####[address] [place], [place] [address] ALT [Catalytic activity/Vol] 27 U/L Normal 14-59 [facility] Comment on above: Performed By: #### H FP ####[address] [place], [place] [address] AST [Catalytic activity/Vol] 36 U/L Normal 10-40 [facility] Comment on above: Performed By: #### H FP ####[address] [place], [place] [address] Bili Direct 0.2 mg/dL Normal 0.0-0.2 [facility] Comment on above: Result Comment: Use of this assay is not recommended for patients undergoing treatment with eltrombopag due to the potential for falsely elevated results. Performed By: #### H FP ####[address] [place], [place] [address] Bili Total 0.6 mg/dL Normal 0.2-1.0 [facility] Comment on above: Result Comment: Use of this assay is not recommended for patients undergoing treatment with eltrombopag due to the potential for falsely elevated results. Performed By: #### H FP ####[id number] [place], [place] [address] Globulin 3.5 G/dL Normal 2.7-4.4 [facility] Comment on above: Performed By: #### H FP ####[address] [place], [place] [address] Total Protein 7.3 G/dL Normal 6.4-8.2 [facility] Comment on above: Performed By: #### H FP ####[address] [place], [place] [address] LABORATORYOrdered By: SYSTEM SYSTEM on 10-02-2024 Albumin BCP dye [Mass/Vol] 3.8 G/dL Normal 3.5 - 5.0 G/dL AO ADM SS Albumin/Globulin [Mass ratio] 1.1 {ratio} Normal 1.1 - 2.5 ratio AO ADM SS ALP [Catalytic activity/Vol] 77 U/L Normal 40 - 135 U/L AO ADM SS ALT With P-5'-P [Catalytic activity/Vol] 27 U/L Normal 14 - 59 U/L AO ADM SS AST With P-5'-P [Catalytic activity/Vol] 36 U/L Normal 10 - 40 U/L AO ADM SS Bilirubin [Mass/Vol] 0.6 mg/dL Normal 0.2 - 1.0 mg/dL AO ADM SS Comment on above: Interpretive Data: U se of this assay is not recommended for patients undergoing treatment with eltrombopag due to the potential for falsely elevated results. Bilirubin.direct [Mass/Vol] 0.4 mg/dL Invalid Interpretation Code AO Chemistry S Bilirubin.direct [Mass/Vol] 0.2 mg/dL Normal 0.0 - 0.2 mg/dL AO ADM SS Comment on above: Interpretive Data: U se of this assay is not recommended for patients undergoing treatment with eltrombopag due to the potential for falsely elevated results. Globulin 3.5 G/dL Normal 2.7 - 4.4 G/dL AO ADM SS Protein [Mass/Vol] 7.3 G/dL Normal 6.4 - 8.2 G/dL AO ADM SS No Panel Informationon 10-01 Culture Urine 10,000 - 50,000 cfu/ ml Multiple bacterial morphotypes present. Probable Contamination. Suggest recollection if clinically indicated. [facility] Work Phone: .Auto Diffon 09-29-2024 Basophil, Absolute 0.0 10 3/mcL Normal 0.0-0.3 [facility] Comment on above: Performed By: #### M DW, ANEU, CMP, TROPHS, GFR, ADIFF, CBC #### [address] [address] Basophils/100 WBC (Bld) 0.6 % Normal 0.0-2.5 [facility] Comment on above: Performed By: #### M DW, ANEU, CMP, TROPHS, GFR, ADIFF, CBC #### [address] [address] Eosinophil, Absolute 0.0 10 3/mcL Normal 0.0-0.7 [facility] Comment on above: Performed By: #### M DW, ANEU, CMP, TROPHS, GFR, ADIFF, CBC #### [address] [address] Eosinophils/100 WBC (Bld) 0.3 % Normal 0.0-6.0 [facility] Comment on above: Performed By: #### M DW, ANEU, CMP, TROPHS, GFR, ADIFF, CBC #### [address] [address] Lymphocyte, Absolute 1.5 10 3/mcL Normal 0.9-4.3 [facility] Comment on above: Performed By: #### M DW, ANEU, CMP, TROPHS, GFR, ADIFF, CBC #### [address] [address] Lymphocytes/100 WBC (Bld) 25.8 % Normal 20.0-40.0 [facility] Comment on above: Performed By: #### M DW, ANEU, CMP, TROPHS, GFR, ADIFF, CBC #### [address] [address] Monocyte, Absolute 0.3 10 3/mcL Normal 0.1-1.4 [facility] Comment on above: Performed By: #### M DW, ANEU, CMP, TROPHS, GFR, ADIFF, CBC #### [address] [address] Monocytes/100 WBC (Bld) 5.2 % Normal 2.0-13.0 [facility] Comment on above: Performed By: #### M DW, ANEU, CMP, TROPHS, GFR, ADIFF, CBC #### [address] [address] Neutrophils/100 WBC (Bld) 68.1 % Normal 50.0-75.0 [facility] Comment on above: Performed By: #### M DW, ANEU, CMP, TROPHS, GFR, ADIFF, CBC #### [address] [address] .GFRon 09-29-2024 Estimated Glomerular Filtration Rate 63 ml/min/1.73sqm Normal [facility] Comment on above: Result Comment: Stages of Chronic Kidney Disease (CKD) Stage Description eGFR(ml/min/1.73 sq.m.) CKD 1 Normal kidney function or >=90 normal kindney function with possible kidney damage (ex. Proteinuria) CKD 2 Kidney damage with mild loss 60-89 of kidney function CKD 3a Mild to moderate loss of kidney 45-59 function CKD 3b Moderate to severe loss of 30-44 of kindey function CKD 4 Severe loss of kidney function 15-29 CKD 5 Kidney failure <15 Note: (go live 2024) the eGFR calculation was updated to the 2020 CKD-EPI creatinine equation without a race factor to calculate the eGFR results. Performed By: #### M DW, ANEU, CMP, TROPHS, GFR, ADIFF, CBC #### [address] [address] .MDWon 09-29-2024 Monocyte Distribution Width 16.34 Normal 0.00-20.00 [facility] Comment on above: Result Comment: For ED adult patients suspected of sepsis, MDW<=20.0 does not rule out sepsis or risk of sepsis Performed By: #### M DW, ANEU, CMP, TROPHS, GFR, ADIFF, CBC #### [place] [id number] .NEUABSon 09-29-2024 Neutrophil, Absolute 4.0 10 3/mcL Normal 2.3-8.1 [facility] Comment on above: Performed By: #### M DW, ANEU, CMP, TROPHS, GFR, ADIFF, CBC #### [place] [id number] CBCon 09-29-2024 Erythrocyte distribution width (RBC) [Ratio] 12.2 % Normal 11.5-15.5 [facility] Comment on above: Performed By: #### M DW, ANEU, CMP, TROPHS, GFR, ADIFF, CBC #### [place] [address] Hematocrit (Bld) [Volume fraction] 42.7 % Normal 34.0-46.0 [facility] Comment on above: Performed By: #### M DW, ANEU, CMP, TROPHS, GFR, ADIFF, CBC #### [place] [address] Hgb 14.1 G/dL Normal 12.0-16.0 [facility] Comment on above: Performed By: #### M DW, ANEU, CMP, TROPHS, GFR, ADIFF, CBC #### [place] [address] MCH (RBC) [Entitic mass] 30.1 pg Normal 27.0-33.0 [facility] Comment on above: Performed By: #### M DW, ANEU, CMP, TROPHS, GFR, ADIFF, CBC #### [place] [address] MCHC 33.0 G/dL Normal 32.0-36.0 [facility] Comment on above: Performed By: #### M DW, ANEU, CMP, TROPHS, GFR, ADIFF, CBC #### [place] [address] MCV (RBC) [Entitic vol] 91.4 fL Normal 80.0-99.0 [facility] Comment on above: Performed By: #### M DW, ANEU, CMP, TROPHS, GFR, ADIFF, CBC #### [place] [address] Platelet 249 10 3/mcL Normal 150-450 [facility] Comment on above: Performed By: #### M DW, ANEU, CMP, TROPHS, GFR, ADIFF, CBC #### [place] [address] Platelet mean volume (Bld) [Entitic vol] 7.8 fL Normal 6.6-10.5 [facility] Comment on above: Performed By: #### M DW, ANEU, CMP, TROPHS, GFR, ADIFF, CBC #### [place] [address] RBC 4.67 10 6/mcL Normal 4.10-5.30 [facility] Comment on above: Performed By: #### M DW, ANEU, CMP, TROPHS, GFR, ADIFF, CBC #### [place] [address] WBC 5.8 10 3/mcL Normal 4.5-10.8 [facility] Comment on above: Performed By: #### M DW, ANEU, CMP, TROPHS, GFR, ADIFF, CBC #### [place] [address] CMPon 09-29-2024 Albumin Level 4.3 G/dL Normal 3.2-4.8 [facility] Comment on above: Performed By: #### M DW, ANEU, CMP, TROPHS, GFR, ADIFF, CBC #### [place] [address] Albumin/Globulin [Mass ratio] 1.3 {ratio} Normal 0.9-1.6 [facility] Comment on above: Performed By: #### M DW, ANEU, CMP, TROPHS, GFR, ADIFF, CBC #### [place] [address] ALP [Catalytic activity/Vol] 81 U/L Normal 38-126 [facility] Comment on above: Performed By: #### M DW, ANEU, CMP, TROPHS, GFR, ADIFF, CBC #### [address] [address] ALT [Catalytic activity/Vol] 18 U/L Normal 10-49 [facility] Comment on above: Performed By: #### M DW, ANEU, CMP, TROPHS, GFR, ADIFF, CBC #### [address] [address] AST [Catalytic activity/Vol] 39 U/L High 8-34 [facility] Comment on above: Performed By: #### M DW, ANEU, CMP, TROPHS, GFR, ADIFF, CBC #### [address] [address] Bili Total 0.70 mg/dL Normal 0.20-1.20 [facility] Comment on above: Result Comment: Use of this assay is not recommended for patients undergoing treatment with eltrombopag due to the potential for falsely elevated results. Performed By: #### M DW, ANEU, CMP, TROPHS, GFR, ADIFF, CBC #### [place] [id number] BUN/Creatinine Ratio 12.4 ratio Normal 10.0-22.0 [facility] Comment on above: Performed By: #### M DW, ANEU, CMP, TROPHS, GFR, ADIFF, CBC #### [address] [address] Calcium [Mass/Vol] 10.0 mg/dL Normal 8.7-10.4 [facility] Comment on above: Performed By: #### M DW, ANEU, CMP, TROPHS, GFR, ADIFF, CBC #### [address] [address] Chloride [Moles/Vol] 104 mmol/L Normal 98-110 [facility] Comment on above: Performed By: #### M DW, ANEU, CMP, TROPHS, GFR, ADIFF, CBC #### [address] [address] CO2 [Moles/Vol] 24 mmol/L Normal 22-32 [facility] Comment on above: Performed By: #### M DW, ANEU, CMP, TROPHS, GFR, ADIFF, CBC #### [address] [address] Creatinine [Mass/Vol] 1.05 mg/dL Normal 0.50-1.20 [facility] Comment on above: Result Comment: Test ing performed on [employer] analyzer using enzymatic creatinine methodology. Performed By: #### M DW, ANEU, CMP, TROPHS, GFR, ADIFF, CBC #### [place] [id number] Electrolyte Balance 15.0 mEq/L Normal 4.0-15.0 [facility] Comment on above: Performed By: #### M DW, ANEU, CMP, TROPHS, GFR, ADIFF, CBC #### [address] [address] Globulin 3.2 G/dL Normal 2.5-4.2 [facility] Comment on above: Performed By: #### M DW, ANEU, CMP, TROPHS, GFR, ADIFF, CBC #### [place] [id number] Glucose [Mass/Vol] 116 mg/dL High 70-110 [facility] Comment on above: Performed By: #### M DW, ANEU, CMP, TROPHS, GFR, ADIFF, CBC #### [place] [id number] Potassium [Moles/Vol] 3.8 mmol/L Normal 3.5-5.0 [facility] Comment on above: Performed By: #### M DW, ANEU, CMP, TROPHS, GFR, ADIFF, CBC #### [address] [address] Sodium [Moles/Vol] 143 mmol/L Normal 136-145 [facility] Comment on above: Performed By: #### M DW, ANEU, CMP, TROPHS, GFR, ADIFF, CBC #### [place] [id number] Total Protein 7.5 G/dL Normal 5.7-8.2 [facility] Comment on above: Performed By: #### M DW, ANEU, CMP, TROPHS, GFR, ADIFF, CBC #### [address] [address] Urea nitrogen [Mass/Vol] 13.0 mg/dL Normal 8.0-22.0 [facility] Comment on above: Performed By: #### M DW, ANEU, CMP, TROPHS, GFR, ADIFF, CBC #### [address] [address] LABORATORYOrdered By: SYSTEM SYSTEM on 09-29-2024 Albumin BCP dye [Mass/Vol] 4.3 G/dL Normal 3.2 - 4.8 G/dL ADM SS Albumin/Globulin [Mass ratio] 1.3 {ratio} Normal 0.9 - 1.6 ratio AH ADM SS ALP [Catalytic activity/Vol] 81 U/L Normal 38 - 126 U/L ADM SS ALT No additional P-5'-P [Catalytic activity/Vol] 18 U/L Normal 10 - 49 U/L ADM SS AST [Catalytic activity/Vol] 39 U/L High 8 - 34 U/L ADM SS Basophils (Bld) [#/Vol] 0.0 103/mcL Normal 0.0 - 0.3 10^3/mcL Workflow SS Basophils/100 WBC (Bld) 0.6 % Normal 0.0 - 2.5 % Workflow SS Bilirubin [Mass/Vol] 0.70 mg/dL Normal 0.20 - 1.20 mg/dL ADM SS Comment on above: Interpretive Data: U se of this assay is not recommended for patients undergoing treatment with eltrombopag due to the potential for falsely elevated results. Calcium [Mass/Vol] 10.0 mg/dL Normal 8.7 - 10. 4 mg/dL ADM SS Chloride [Moles/Vol] 104 mmol/L Normal 98 - 110 mEq/L ADM SS CO2 [Moles/Vol] 24 mmol/L Normal 22 - 32 mEq/L AH ADM SS Creatinine [Mass/Vol] 1.05 mg/dL Normal 0.50 - 1.20 mg/dL AH ADM SS Comment on above: Interpretive Data: T esting performed on [employer] analyzer using enzymatic creatinine methodology. Electrolyte Balance 15.0 mEq/L Normal 4.0 - 15 .0 mEq/L AH ADM SS Eosinophils (Bld) [#/Vol] 0.0 103/mcL Normal 0.0 - 0.7 10^3/mcL AH Workflow SS Eosinophils/100 WBC (Bld) 0.3 % Normal 0.0 - 6.0 % AH Workflow SS Erythrocyte distribution width (RBC) [Ratio] 12.2 % Normal 11.5 - 15.5 % Workflow SS Estimated Glomerular Filtration Rate 63 ml/min/1.73sqm Invalid Interpretation Code ADM SS Comment on above: Interpretive Data: Stages of Chronic Kidney Disease (CKD) Stage Description eGFR(ml/min/1.73 sq.m.) CKD 1 Normal kidney function or >=90 normal kindney function with possible kidney damage (ex. Proteinuria) CKD 2 Kidney damage with mild loss 60-89 of kidney function CKD 3a Mild to moderate loss of kidney 45-59 function CKD 3b Moderate to severe loss of 30-44 of kindey function CKD 4 Severe loss of kidney function 15-29 CKD 5 Kidney failure <15 Note: (go live 2024) the eGFR calculation was updated to the 2020 CKD-EPI creatinine equation without a race factor to calculate the eGFR results. Globulin 3.2 G/dL Normal 2.5 - 4.2 G/dL ADM SS Glucose [Mass/Vol] 116 mg/dL High 70 - 110 mg/dL ADM SS Hematocrit (Bld) [Volume fraction] 42.7 % Normal 34.0 - 46.0 % AH Workflow SS Hemoglobin (Bld) [Mass/Vol] 14.1 G/dL Normal 12.0 - 16.0 G/dL Workflow SS Lymphocytes (Bld) [#/Vol] 1.5 103/mcL Normal 0.9 - 4.3 10^3/mcL Workflow SS Lymphocytes/100 WBC (Bld) 25.8 % Normal 20.0 - 40.0 % Workflow SS MCH (RBC) [Entitic mass] 30.1 pg Normal 27.0 - 33.0 pg AH Workflow SS MCHC 33.0 G/dL Normal 32.0 - 36.0 G/dL Workflow SS MCV (RBC) [Entitic vol] 91.4 fL Normal 80.0 - 99.0 fL Workflow SS Monocyte distribution width Auto (Bld) [Entitic vol] 16.34 1 Normal 0.00 - 20.00 Workflow SS Comment on above: Result Comment: For ED adult patients suspected of sepsis, MDW<=20.0 does not rule out sepsis or risk of sepsis Monocytes (Bld) [#/Vol] 0.3 103/mcL Normal 0.1 - 1.4 10^3/mcL AH Workflow SS Monocytes/100 WBC (Bld) 5.2 % Normal 2.0 - 13.0 % AH Workflow SS Neutrophils (Bld) [#/Vol] 4.0 103/mcL Normal 2.3 - 8.1 10^3/mcL AH Workflow SS Neutrophils/100 WBC (Bld) 68.1 % Normal 50.0 - 75.0 % AH Workflow SS Platelet mean volume (Bld) [Entitic vol] 7.8 fL Normal 6.6 - 10.5 fL AH Workflow SS Platelets (Bld) [#/Vol] 249 103/mcL Normal 150 - 450 10^3/mcL AH Workflow SS Potassium [Moles/Vol] 3.8 mmol/L Normal 3.5 - 5.0 mEq/L ADM SS Protein [Mass/Vol] 7.5 G/dL Normal 5.7 - 8.2 G/dL ADM SS RBC (Bld) [#/Vol] 4.67 106/mcL Normal 4.10 - 5.30 10^6/mcL Workflow SS Sodium [Moles/Vol] 143 mmol/L Normal 136 - 145 mEq/L ADM SS Troponin I.cardiac DL <= 0.01 ng/mL [Mass/Vol] 3 ng/L Normal 0 - 34 ng/L ADM SS Comment on above: Interpretive Data: High Sensitive Troponin I Reference Ranges: Female: 0-34 ng/L Male: 0-54 ng/L Testing performed on [employer] IM analyzer using direct chemiluminescent technology. Urea nitrogen [Mass/Vol] 13.0 mg/dL Normal 8.0 - 22.0 mg/dL ADM SS Urea nitrogen/Creatinine [Mass ratio] 12.4 ratio Normal 10.0 - 22.0 ratio ADM SS WBC (Bld) [#/Vol] 5.8 103/mcL Normal 4.5 - 10.8 10^3/mcL Workflow SS TROPHSon 09-29-2024 High Sensitivity Troponin I 3 ng/L Normal 0-34 [facility] Comment on above: Result Comment: High Sensitive Troponin I Reference Ranges: Female: 0-34 ng/L Male: 0-54 ng/L Testing performed on [employer] IM analyzer using direct chemiluminescent technology. Performed By: #### M DW, ANEU, CMP, TROPHS, GFR, ADIFF, CBC #### [place] [address] Gastroenterology Visit Repor ton 08-28-2024 Gastroenterology Visit Report [facility] Gastroenterology [address] [place] [address] OFFICE VISIT Date of Service: 08/28/24 MR#: [id number] Acct: [id number] Name: BELLE HAMM Rep #: [id number] : 1970 Provider: MIKE Jang Age/Sex: 54/F Location: [facility] Status: Signed Intake Vital Signs 08/14/24 08:58 Height 5 ft 2 in Intake Visit Reasons: Test Result Chief Complaint: f/u Allergies codeine (From Tylenol-Codeine) Allergy (Verified 08/14/24 08:55) Rash hydrocodone (From Vicodin) Allergy (Verified 08/14/24 08:55) Rash Sulfa (Sulfonamide Antibiotics) Allergy (Verified 08/14/24 08:55) Rash NSAIDS (Non-Steroidal Anti-Inflamma Adverse Reaction (Verified 08/14/24 08:55) Other Nurse's Note: OV08/28/24 Pt here for f/u and reports she is doing well. She occasionally has n/v and abdominal pain. Pt pantoprazole, PFSH Medical History (Updated 08/14/24 @ 10:[address] Moncho Carrillo, DO) Dysphagia Alcohol use History of hiatal hernia Sleep apnea Wears glasses Anxiety Diabetes Restless legs Dietary restriction Gastric reflux Former smoker CPAP (continuous positive airway pressure) dependence Neuropathy History of echocardiogram History of stress test Hypertension Encounter for screening for malignant neoplasm of colon Surgical History H/O bilateral breast reduction surgery History of esophagogastroduodenoscopy (EGD) Bariatric surgery status Hx of colonoscopy History of esophagogastroduodenoscopy (EGD) Hx of hernia repair History of tonsillectomy and adenoidectomy Hx of foot surgery Hx of total hysterectomy Hx of gastric bypass Hx laparoscopic cholecystectomy Family History Brother Diabetes Heart disease Social History Smoking Status: Former smoker how long ago did patient quit smoking: quit 2012 alcohol intake: never substance use type: does not use additional social history: denies vaping, denies marijuana use, denies edible, denies aspirin use denies ibuprofen HPI HPI Chief Complaint: f/u Details: BELLE HAMM, is a 54 F who presents to the office today for f/u. [facility] established 04.14.21 for screening colonoscopy and esophageal dysphagia. PMhx of Cristian-Luz gastric bypass in 2019 as well as cholecystectomy. EGD and colonoscopy 06.13.21 Irregular Zline; small hiatal hernia; Cristian-en-y gastrojejunostomy with healthy anastomosis. Metaplasia neg. Colonoscopy hemorrhoids; diverticulosis. No specimens EGD 01.30.23 esophageal stenosis, Savary 60F; irregular Zline; medium hiatal hernia; Cristian-en-Y with healthy anastomosis. No metaplasia Upper GISBFT 02.12.23 no acute/chronic abnormality. EGD 09.20.23 Benign-appearing esophageal stenosis. Dilated. Gastric bypass with a normal-sized pouch and intact staple line. Gastrojejunal anastomosis characterized by healthy appearing mucosa. Normal examined jejunum. No specimens collected. EGD 11.16.23 Abnormal esophageal motility, established esophageal spasm. Small hiatal hernia. Cristian-en-Y gastrojejunostomy with gastrojejunal anastomosis characterized by ulceration. Suspected jejunal inflammation characterized by erosions and erythema. Biopsied. GET 02.20.24 rapid emptying Last OV 1.8.25 Pt recently diagnosed with anemia. Having nausea once a week. EGD 08.14.24; - Z-line irregular, 39 cm from the incisors. Biopsied. 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 Biopsied. - Normal examined jejunum. Colonoscopy 08.14.24 Diverticulosis in the recto-sigmoid colon and in the sigmoid colon. - The examination was otherwise normal on direct and retroflexion views. - Congested mucosa in the distal ileum. Biopsied. OV 6.25 Pt continues to have epigastric pain daily. Pain is achy. Does not worsen after eating. ROS Const Constitutional: No anorexia, fatigue, fever(s), weight change or sleep problems Eyes Eyes: No change in vision ENT ENT: No abnormal hearing, difficulty swallowing, mouth lesions, tongue swelling or throat swelling Resp Respiratory: No cough or shortness of breath Cardio Cardiology: No chest pain at rest, chest pain with exertion, shortness of breath or dyspnea on exertion Gastro GI: Positive for abdominal pain and nausea/dyspepsia; No difficulty swallowing Genitourinary-Female: No difficulty urinating or burning urination Musc Musculoskeletal: No joint pain, joint swelling, muscle weakness or decreased muscle mass Skin Skin: No hair loss in leg, yellowing of the eye, itchy eyes, rash, skin ulcer or skin swelling Neuro Neurology: No abnormal hearing, abnormal movements, confusion, unsteady ga (more content not included)... Normal [facility] Bedside Glucoseon 08-14-2024 FINGERSTICK GLU 138 mg/dL High 74-106 [facility] Comment on above: Result Comment: RUI HERRON OF PATIENT CARE PER NURSING PROTOCOL Performed By: #### L 501.080 ####[facility] [id number] [facility] [place], [address] Colonoscopy Reporton [address] [facility] Medical Records Department [address] [place] [address] Colonoscopy Report MR#: [id number] Acct: [id number] Name: BELLE HAMM Rep #: [id number] : 1970 54 From: Moncho Carrillo DO PCP: Dr. Berenice Bowling DO Status:REG [facility] Patient Name: Belle Hamm Procedure Date: 08/14/2024 10:24 AM Date of : 1970 Age: 54 Procedure: Colonoscopy Indications: High risk colon cancer surveillance: Personal history of colonic polyps Providers: Moncho Carrillo DO Referring MD: Berenice Bowling Medicines: Monitored Anesthesia Care Patient Profile: This is a 54 year old female. Refer to note in patient chart for documentation of history and physical. Patient has symptoms of dysphagia with both liquids and solids, chronic heartburn and chronic nausea. Last Colonoscopy: several years ago. Complications: No immediate complications. Procedure: Pre-Anesthesia Assessment: - Prior to the procedure, a History and Physical was performed, and patient medications and allergies were reviewed. The patient is competent. The risks and benefits of the procedure and the sedation options and risks were discussed with the patient. All questions were answered and informed consent was obtained. Patient identification and proposed procedure were verified by the physician. Mental Status Examination: alert and oriented. Airway Examination: normal oropharyngeal airway and neck mobility. Respiratory Examination: clear to auscultation. CV Examination: normal. Prophylactic Antibiotics: The patient does not require prophylactic antibiotics. Prior Anticoagulants: The patient has taken no anticoagulant or antiplatelet agents. ASA Grade Assessment: II - A patient with mild systemic disease. After reviewing the risks and benefits, the patient was deemed in satisfactory condition to undergo the procedure. The anesthesia plan was to use monitored anesthesia care (MAC). Immediately prior to administration of medications, the patient was re-assessed for adequacy to receive sedatives. The heart rate, respiratory rate, oxygen saturations, blood pressure, adequacy of pulmonary ventilation, and response to care were monitored throughout the procedure. The physical status of the patient was re-assessed after the procedure. After I obtained informed consent, the scope was passed under direct vision. Throughout the procedure, the patient's blood pressure, pulse, and oxygen saturations were monitored continuously. The pediatric colonoscope was introduced through the anus and advanced to the terminal ileum. The colonoscopy was performed without difficulty. The patient tolerated the procedure well. The quality of the bowel preparation was good. The ileocecal valve, appendiceal orifice, and rectum were photographed. Scope In: 10:26:00 AM Scope Withdrawal Time 0 hours 6 minutes 49 seconds Scope Out: 10:43:44 AM Total Procedure Duration Time 0 hours 17 minutes 44 seconds Findings: The perianal and digital rectal examinations were normal. Multiple small-mouthed diverticula were found in the recto-sigmoid colon and sigmoid colon. The exam was otherwise without abnormality on direct and retroflexion views. A patchy area of the distal ileum was congested. Biopsies were taken with a cold forceps for histology. Verification of patient identification for the specimen was done. Estimated blood loss was minimal. Impression: - Diverticulosis in the recto-sigmoid colon and in the sigmoid colon. - The examination was otherwise normal on direct and retroflexion views. - Congested mucosa in the distal ileum. Biopsied. Recommendation: - Discharge patient to home. - Resume previous diet. - Continue present medications. - Await pathology results. - Repeat colonoscopy in 5 years for surveillance. Procedure Code(s): --- Professional --- 12901, Colonoscopy, flexible; with biopsy, single or multiple CPT copyright 2021 [employer]. All rights reserved. The codes documented in this report are preliminary and upon middle school baseball coach review may be revised to meet current compliance requirements. Moncho Carrillo DO 08/14/2024 11:03:51 AM This report has been signed electronically. Number of Addenda: 0 Note Initiated On: 08/14/2024 10:24 AM 08/14/24 1104 Date Moncho Carrillo DO Cosigner Signature: Date (if indicated) CC: Dr. Berenice Bowling DO; Moncho Carrillo DO Date Dictated: 08/14/24 1024 Date Transcribed: Supervisor Cutting And Boning: JUAN LUIS Signed Normal [facility] EGD Reporton 08-14-[address] [facility] Medical Records Department [address] [place] [id number] EGD Report MR#: [id number] Acct: [id number] Name: BELLE HAMM Rep #: [id number] : 1970 54 From: Moncho Carrillo DO PCP: Dr. Berenice Bowling DO Status:REG [facility] Patient Name: Belle Hamm Procedure Date: 08/14/2024 10:04 AM Date of : 1970 Age: 54 Procedure: Upper GI endoscopy Indications: Epigastric abdominal pain, Functional Dyspepsia, Dysphagia Providers: Moncho Carrillo DO Referring MD: Berenice Bowling Medicines: Monitored Anesthesia Care Patient Profile: This is a 54 year old female. Refer to note in patient chart for documentation of history and physical. Patient has symptoms of dysphagia with both liquids and solids, chronic heartburn and chronic nausea. Complications: No immediate complications. Procedure: Pre-Anesthesia Assessment: - Prior to the procedure, a History and Physical was performed, and patient medications and allergies were reviewed. The patient is competent. The risks and benefits of the procedure and the sedation options and risks were discussed with the patient. All questions were answered and informed consent was obtained. Patient identification and proposed procedure were verified by the physician. Mental Status Examination: alert and oriented. Airway Examination: normal oropharyngeal airway and neck mobility. Respiratory Examination: clear to auscultation. CV Examination: normal. Prophylactic Antibiotics: The patient does not require prophylactic antibiotics. Prior Anticoagulants: The patient has taken no anticoagulant or antiplatelet agents. ASA Grade Assessment: II - A patient with mild systemic disease. After reviewing the risks and benefits, the patient was deemed in satisfactory condition to undergo the procedure. The anesthesia plan was to use monitored anesthesia care (MAC). Immediately prior to administration of medications, the patient was re-assessed for adequacy to receive sedatives. The heart rate, respiratory rate, oxygen saturations, blood pressure, adequacy of pulmonary ventilation, and response to care were monitored throughout the procedure. The physical status of the patient was re-assessed after the procedure. After obtaining informed consent, the endoscope was passed under direct vision. Throughout the procedure, the patient's blood pressure, pulse, and oxygen saturations were monitored continuously. The pediatric colonoscope was introduced through the mouth, and advanced to the anastomosis site of gastric bypass. The upper GI endoscopy was accomplished without difficulty. The patient tolerated the procedure well. Scope In: 10:21:56 AM Scope Out: 10:24:26 AM Total Procedure Duration Time 0 hours 2 minutes 30 seconds Findings: The Z-line was irregular and was found 39 cm from the incisors. Biopsies were taken with a cold forceps for histology. Verification of patient identification for the specimen was done. Estimated blood loss was minimal. 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 The gastrojejunal anastomosis was characterized by friable mucosa and inflammation. This was traversed. The aqdfz-ig-dbuwvat limb was characterized by healthy appearing mucosa. The jejunojejunal anastomosis was characterized by healthy appearing mucosa. The ptllewuf-uo-xhjoizk limb was not examined as it could not be found. The excluded stomach was not examined as it could not be found. Biopsies were taken with a cold forceps for histology. Verification of patient identification for the specimen was done. Estimated blood loss was minimal. The examined jejunum was normal. Impression: - Z-line irregular, 39 cm from the incisors. Biopsied. 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 Biopsied. - Normal examined jejunum. Recommendation: - Discharge patient to home. - Resume previous diet. - Continue present medications. - Await pathology results. Procedure Code(s): --- Professional --- 76491, Esophagogastroduodenoscopy, flexible, transoral; with biopsy, single or multiple CPT copyright 2021 [employer]. All rights reserved. The codes documented in this report are preliminary and upon middle school baseball coach review may be revised to meet current compliance requirements. Moncho Carrillo DO 08/14/2024 10:53:14 AM This report has been signed electronically. Number of Addenda: 0 Note Initiated On: 08/14/2024 10:04 AM 08/14/24 1053 Date Moncho Carrillo DO Cosigner Signature: Date (if indicated) CC: Dr. Berenice Bowling DO; Moncho Carrillo DO Date Dictated: 08/14/24 1004 Date Transcribed: Supervisor Cutting [employer] Boning: JUAN LUIS Grey (more content not included)... Normal [facility] deOrdered By: Moncho Carrillo on 08-14-2024 Glucose [Mass/Vol] 138 mg/dL High 74-106 [facility] Comment on above: MANAGEMENT OF PATIEN T CARE PER NURSING PROTOCOL MR/POSTOP.[place] 08-14-2024 MR/POSTOP.[facility] Medical Records Department [address] [place] [address] Anesthesia Postop Eval I 08/14/24 1052 MR#: [id number] Acct: [id number] Name: BELLE HAMM Rep #: [id number] : 1970 54 From: Diego Moore PCP: Dr. Berenice Bowling, DO Status:REG SDC Y Race: C Location: [place] [address] Anesthesia: Postop Eval I Current Vital Signs Temperature: 97.6 F Pulse Rate: 76 Blood Pressure: 111/56 Respiratory Rate: 16 Pulse Ox: 95 Oxygen Delivery Method: Room Air Assessment Airway patent: Yes Spontaneous unlabored respirations: Yes Mental status: Awake and Calm nausea: No Vomiting: No Anesthesia Complication: No Fluid Hydration Crystalloid volume administer (ml): 600 Total IV fluid infused: 600 Progress Note Anesthesia document: Postop Eval 1 completed: Yes 08/14/24 1053 Date Diego Philip Signature: Date CC: Signed Normal [facility] MR/[id number] 08-14-2024 [facility] Medical Records Department [address] [place] [address] Anesthesia Postop Eval II 08/14/24 1102 MR#: [id number] Acct: [id number] Name: BELLE HAMM Rep #: [id number] : 1970 54 From: Gino Carter MD PCP: Dr. Berenice Bowling, DO Status:REG SDC Y Race: C Location: [place] [address] Anesthesia Postop Eval I Sum Postop Eval Completion status Anesthesia document: Postop Eval 1 completed: Yes Anesthesia Postop Eval I Summary Anesthesia Postop Eval I Summary: Anesthesia Postop Eval I: Assessment Summary Airway patent Yes 08/14/24 10:53 [email or web address] Spontaneous unlabored Yes 08/14/24 10:53 [email or web address] respirations Mental status Awake,Calm 08/14/24 10:53 [email or web address] nausea No 08/14/24 10:53 [email or web address] Vomiting No 08/14/24 10:53 [email or web address] Anesthesia Postop Eval I: Fluid Summary Crystalloid volume administer 600 08/14/24 10:53 [email or web address] (ml) Colloids volume administered ( ml) Blood Product volume administered (ml) Total IV fluid infused 600 08/14/24 10:53 [email or web address] Anesthesia Postop Eval I: Summary Notes Anesthesia Complication No 08/14/24 10:53 [email or web address] Anesthesia Complication Comment: Post-operative progress note Anesthesia: Postop Eval II Evaluation Mental status: Awake Pain Level: 0 nausea: No Vomiting: No 08/14/24 1102 Date Gino Philip Signature: Date CC: Signed Normal [facility] Surgery Specimen Level Nery 08-14-2024 Surgery Specimen Level IV -- Patient Age/Sex Location Account Attending Physician -- RAMABELLE AVALOS 54/F EN [id number] Moncho Carrillo DO -- Specimen: [id number] Received: 08/14/24 Status: KARINA Garrett Num: [id number] Spec Type: EGD BIOPSY Subm Dr: Moncho Carrillo DO HEADER OPERATION: Colonoscopy, EGD and biopsy PRE-OP DIAGNOSIS: Dysphagia, personal history of colon polyps TISSUE SUBMITTED: A- Distal esophagus biopsy, B- Anastomosis site, C- Terminal ileum biopsy -- MICROSCOPIC DIAGNOSIS A. Esophagus, distal, biopsy: Columnar mucosa, negative for goblet cell metaplasia. B. Anastomotic site (nos), biopsy: Gastric and small intestinal mucosa with no specific pathologic change. C. Terminal ileum, biopsy: Normal villous morphology with no specific pathologic change. MICROSCOPIC DESCRIPTION Slides are reviewed. GROSS DESCRIPTION Received in 3 formalin containers labeled the patient's name and date of . Designated as: A. Distal esophagus BX are 2 manrique tissue fragments, <0.1 cm and 0.5 cm. Entirely submitted in 1 cassette. Smallest fragment may not survive processing. B. Anastomosis site are 2 manrique tissue fragments, <0.1 cm and 0.5 cm. Entirely submitted in 1 cassette. Smallest fragment may not survive processing. C. BX terminal ileum are 3 manrique tissue fragments, <0.1 cm to 0.5 cm. Entirely submitted in 1 cassette. Smallest fragment may not survive processing. [facility] 08/14/2024 CPT:14662c4 -- Patient Age/Sex Location Account Attending Physician -- BELLE HAMM 54/F EN [id number] Moncho Carrillo DO -- Signed (signature on file) Dr. Eve Carlos MD 08/22/24 1023 -- Normal [facility] Comment on above: Performed By: #### P FELISA #### [facility] [address] [place], [place], [id number] A1Con 08-12-2024 Glucose [Mass/Vol] 157 mg/dL Normal [facility] Comment on above: Result Comment: Tessa mated Average Glucose calculated by equation ((28.7xA1C)-46.7) Estimated average glucose (eAG) is a calculated value from Hemoglobin A1C and is community health representative of the average blood glucose level in the last 2-3 month period. Normal range: less than 114 mg/dL Performed By: #### A 1C ####[id number] [place], [place] [address] HbA1c (Bld) [Mass fraction] 7.1 % High 4.3-6.4 [facility] Comment on above: Performed By: #### A 1C ####[address] [place], [place] [address] LABORATORYOrdered By: SYSTEM SYSTEM on 08-12-2024 Glucose [Mass/Vol] 157 mg/dL Invalid Interpretation Code AO Chemistry S Comment on above: Interpretive Data: E stimated average glucose (eAG) is a calculated value from Hemoglobin A1C and is community health representative of the average blood glucose level in the last 2-3 month period. Normal range: less than 114 mg/dL HbA1c (Bld) [Mass fraction] 7.1 % High 4.3 - 6.4 % AO ADM SS XR ANKLE MINIMUM 3 VIEWS LEF Ton 07-31-2024 XR ANKLE MINIMUM 3 VIEWS LEFT ORIGINAL EXAMINATION: THREE XRAY VIEWS OF THE LEFT ANKLE07/31/2024 11:32 am ANKLE 3 VIEWS LEFT COMPARISON: Left foot x-ray 04/11/2016 HISTORY: ORDERING SYSTEM PROVIDED HISTORY: Reason for Exam: fall FINDINGS: No acute fracture or dislocation is identified. The ankle mortise and talar dome are normal. The joint spaces are maintained. There is no radiopaque foreign body. Surgical fixation of the 1st, 2nd, and 3rd digits is noted. Some lucency is seen around the proximal portion of the 1st digit screw. IMPRESSION: No acute fracture or dislocation. Lucency surrounding the proximal portion of the 1st digit screw. This may be related to hardware loosening. Consider dedicated foot radiographs I have personally reviewed the images of this examination and agree with the resident's findings and interpretation. Interpreted by: Thaddeus Chavez MD Preliminary Report By: Marine Keith Electronically signed By Thaddeus Chavez MD Dictated Date: 07/31/2024 11:38:04 AM Prelim Date: 07/31/2024 11:46:56 AM Sign Date: 07/31/2024 11:46:56 AM Ordering Provider: JOSE A BERNAL [facility] XR KNEE THREE VIEWS LEFTon 0 07-31-2024 XR KNEE THREE VIEWS LEFT ORIGINAL EXAMINATION: THREE XRAY VIEWS OF THE LEFT KNEE07/31/2024 11:32 am COMPARISON: None HISTORY: ORDERING SYSTEM PROVIDED HISTORY: Reason for Exam: fall FINDINGS: No fracture or dislocation is seen. No joint effusion is seen. Mild spurring seen in the medial tibiofemoral compartment. There are no suspicious osseous lesions. There is no radiopaque foreign body. IMPRESSION: No acute fracture or subluxation. Mild degenerative changes. I have personally reviewed the images of this examination and agree with the resident's findings and interpretation. Interpreted by: Thaddeus Chavez MD Preliminary Report By: Song Thompson MD Electronically signed By Thaddeus Chavez MD Dictated Date: 07/31/2024 11:41:47 AM Prelim Date: 07/31/2024 11:47:59 AM Sign Date: 07/31/2024 11:47:59 AM Ordering Provider: JOSE A BERNAL [facility] CT FOOT W/O CONTRAST LEFTon 07-25-2024 CT FOOT W/O CONTRAST LEFT ORIGINAL EXAMINATION: CT OF THE LEFT FOOT WITHOUT CONTRAST07/25/2024 9:26 am COMPARISON: Radiographs 04/11/2016 TECHNIQUE: CT of the left foot was performed without the administration of intravenous contrast. Multiplanar reformatted images are provided for review. Automated exposure control, iterative reconstruction, and/or weight based adjustment of the mA/kV was utilized to reduce the radiation dose to as low as reasonably achievable. HISTORY: ORDERING SYSTEM PROVIDED HISTORY: Reason for Exam: Pseudarthrosis after fusion or arthrodesis, FINDINGS: There is previous surgery in the forefoot. There is instrumented arthrodesis across the IP joint of the great toe and the PIP joints of the 2nd and 3rd toes. There is a metallic screw/pin traversing these joints and osteotomy defects of the head of the proximal phalanx. There is lucency in bone around the metallic pain particularly within the proximal phalanges that is very suspicious for loosening. This is most prominent in the proximal phalanx of the great toe. No significant bony fusion/arthrodesis is seen across these joints. There is osteotomy of the head of the 4th proximal phalanx and probably similar surgical change in the 5th proximal phalanx. No metallic instrumentation is seen in these digits. There is dorsiflexion at the PIP and D IP joints of the 2nd through 5th digits suggesting hammertoe deformities. There is only mild osteoarthritis in the midfoot and hindfoot. 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 No tibiotalar osteochondral defect or significant osteoarthritis. Subtalar joints are also unremarkable. Small posterior calcaneal spur. There is moderate to severe fatty atrophy of the intrinsic musculature in the foot and ankle region. The medial hallux sesamoid is quite small compared to the lateral sesamoid. This is present on the remote radiographs and may be developmental. IMPRESSION: Postop changes in the forefoot as described. Indicators of loosening of surgical hardware in the 1st through 3rd digits as described. Moderate to severe muscle atrophy. Other incidental findings as described. Interpreted by: Gen Mock MD Preliminary Report By: Gen Mock MD Electronically signed By Gen Mock MD Dictated Date: 07/25/2024 3:49:24 PM Prelim Date: 07/25/2024 3:59:22 PM Sign Date: 07/25/2024 3:59:22 PM Ordering Provider: EVELIO Padilla [facility] CT SINUS W/O CONTRASTon 05-0 CT SINUS W/O CONTRAST ORIGINAL EXAMINATION: CT OF THE SINUS WITHOUT CONTRAST 07/03/2024 9:37 am TECHNIQUE: CT of the sinuses was performed without the administration of intravenous contrast. Multiplanar reformatted images are provided for review. Automated exposure control, iterative reconstruction, and/or weight based adjustment of the mA/kV was utilized to reduce the radiation dose to as low as reasonably achievable. COMPARISON: None HISTORY: ORDERING SYSTEM PROVIDED HISTORY: Reason for Exam: OTHER CHRONIC SINUSITIS FINDINGS: SINUSES/MASTOIDS: The maxillary, sphenoid, ethmoid and frontal sinuses are clear. The bilateral ostiomeatal units are patent. Ethmoid roofs are symmetric. The mastoid air cells are well aerated. SOFT TISSUES: Visualized soft tissues demonstrate no acute abnormality. The visualized portion of the intracranial contents demonstrate no gross acute abnormality. IMPRESSION: No evidence of sinusitis. Interpreted by: Osmin Leborn Preliminary Report By: Osmin Lebron Electronically signed By Osmin Lebron Dictated Date: 07/03/2024 9:56:38 AM Prelim Date: 07/03/2024 9:57:13 AM Sign Date: 07/03/2024 9:57:13 AM Ordering Provider: CLARA Padilla [facility] .Auto Diffon 06-23-2024 Basophil, Absolute 0.0 10 3/mcL Normal 0.0-0.3 [facility] Comment on above: Performed By: #### C BC, GFR, ADIFF, A1C, LIPID, VIDH, CMP, TSH, ANEU ####[address] [place], [place] [address] Basophils/100 WBC (Bld) 0.4 % Normal 0.0-2.5 [facility] Comment on above: Performed By: #### C BC, GFR, ADIFF, A1C, LIPID, VIDH, CMP, TSH, ANEU ####[address] [place], [place] [address] Eosinophil, Absolute 0.0 10 3/mcL Normal 0.0-0.7 [facility] Comment on above: Performed By: #### C BC, GFR, ADIFF, A1C, LIPID, VIDH, CMP, TSH, ANEU ####[address] [place], [place] [address] Eosinophils/100 WBC (Bld) 0.7 % Normal 0.0-6.0 [facility] Comment on above: Performed By: #### C BC, GFR, ADIFF, A1C, LIPID, VIDH, CMP, TSH, ANEU ####[facility] [place], [place] [address] Lymphocyte, Absolute 1.8 10 3/mcL Normal 0.9-4.3 [facility] Comment on above: Performed By: #### C BC, GFR, ADIFF, A1C, LIPID, VIDH, CMP, TSH, ANEU ####[address] [place], [place] [address] Lymphocytes/100 WBC (Bld) 30.9 % Normal 20.0-40.0 [facility] Comment on above: Performed By: #### C BC, GFR, ADIFF, A1C, LIPID, VIDH, CMP, TSH, ANEU ####[address] [place], [place] [address] Monocyte, Absolute 0.4 10 3/mcL Normal 0.1-1.4 [facility] Comment on above: Performed By: #### C BC, GFR, ADIFF, A1C, LIPID, VIDH, CMP, TSH, ANEU ####[address] [place], [place] [address] Monocytes/100 WBC (Bld) 7.4 % Normal 2.0-13.0 [facility] Comment on above: Performed By: #### C BC, GFR, ADIFF, A1C, LIPID, VIDH, CMP, TSH, ANEU ####[address] [place], [place] [address] Neutrophils/100 WBC (Bld) 60.6 % Normal 50.0-75.0 [facility] Comment on above: Performed By: #### C BC, GFR, ADIFF, A1C, LIPID, VIDH, CMP, TSH, ANEU ####[address] [place], [place] [address] .GFRon 06-23-2024 Estimated Glomerular Filtration Rate 77 ml/min/1.73sqm Normal [facility] Comment on above: Result Comment: Stages of Chronic Kidney Disease (CKD) Stage Description eGFR(ml/min/1.73 sq.m.) CKD 1 Normal kidney function or >=90 normal kindney function with possible kidney damage (ex. Proteinuria) CKD 2 Kidney damage with mild loss 60-89 of kidney function CKD 3a Mild to moderate loss of kidney 45-59 function CKD 3b Moderate to severe loss of 30-44 of kindey function CKD 4 Severe loss of kidney function 15-29 CKD 5 Kidney failure <15 Note: (go live 2024) the eGFR calculation was updated to the 2020 CKD-EPI creatinine equation without a race factor to calculate the eGFR results. Performed By: #### C BC, GFR, ADIFF, A1C, LIPID, VIDH, CMP, TSH, ANEU ####[place] [address] [address] .NEUABSon 06-23-2024 Neutrophil, Absolute 3.6 10 3/mcL Normal 2.3-8.1 [facility] Comment on above: Performed By: #### C BC, GFR, ADIFF, A1C, LIPID, VIDH, CMP, TSH, ANEU ####[address] [address] [id number] A1Con 06-23-2024 Glucose [Mass/Vol] 183 mg/dL Normal [facility] Comment on above: Result Comment: Tessa mated Average Glucose calculated by equation ((28.7xA1C)-46.7) Estimated average glucose (eAG) is a calculated value from Hemoglobin A1C and is community health representative of the average blood glucose level in the last 2-3 month period. Normal range: less than 114 mg/dL Performed By: #### C BC, GFR, ADIFF, A1C, LIPID, VIDH, CMP, TSH, ANEU ####[id number] HbA1c (Bld) [Mass fraction] 8.0 % High 4.3-6.4 [facility] Comment on above: Performed By: #### C BC, GFR, ADIFF, A1C, LIPID, VIDH, CMP, TSH, ANEU ####[id number] CBCon 06-23-2024 Erythrocyte distribution width (RBC) [Ratio] 13.5 % Normal 11.5-15.5 [facility] Comment on above: Performed By: #### C BC, GFR, ADIFF, A1C, LIPID, VIDH, CMP, TSH, ANEU ####[address] [place] [id number] Hematocrit (Bld) [Volume fraction] 36.0 % Normal 34.0-46.0 [facility] Comment on above: Performed By: #### C BC, GFR, ADIFF, A1C, LIPID, VIDH, CMP, TSH, ANEU ####[address] [place], [place] [address] Hgb 12.1 G/dL Normal 12.0-16.0 [facility] Comment on above: Performed By: #### C BC, GFR, ADIFF, A1C, LIPID, VIDH, CMP, TSH, ANEU ####[address] [place], [place] [address] MCH (RBC) [Entitic mass] 29.8 pg Normal 27.0-33.0 [facility] Comment on above: Performed By: #### C BC, GFR, ADIFF, A1C, LIPID, VIDH, CMP, TSH, ANEU ####[address] [place], [place] [address] MCHC 33.6 G/dL Normal 32.0-36.0 [facility] Comment on above: Performed By: #### C BC, GFR, ADIFF, A1C, LIPID, VIDH, CMP, TSH, ANEU ####[address] [address] MCV (RBC) [Entitic vol] 88.7 fL Normal 80.0-99.0 [facility] Comment on above: Performed By: #### C BC, GFR, ADIFF, A1C, LIPID, VIDH, CMP, TSH, ANEU ####[place] [address] [place], [place] [address] Platelet 201 10 3/mcL Normal 150-450 [facility] Comment on above: Performed By: #### C BC, GFR, ADIFF, A1C, LIPID, VIDH, CMP, TSH, ANEU ####[address] [place], [place] [address] Platelet mean volume (Bld) [Entitic vol] 7.7 fL Normal 6.6-10.5 [facility] Comment on above: Performed By: #### C BC, GFR, ADIFF, A1C, LIPID, VIDH, CMP, TSH, ANEU ####[address] [place], [place] [address] RBC 4.06 10 6/mcL Low 4.10-5.30 [facility] Comment on above: Performed By: #### C BC, GFR, ADIFF, A1C, LIPID, VIDH, CMP, TSH, ANEU ####[place] [address] [place], [place] [address] WBC 5.9 10 3/mcL Normal 4.5-10.8 [facility] Comment on above: Performed By: #### C BC, GFR, ADIFF, A1C, LIPID, VIDH, CMP, TSH, ANEU ####[address] [address] CMPon 06-23-2024 Albumin Level 3.3 G/dL Low 3.5-5.0 [facility] Comment on above: Performed By: #### C BC, GFR, ADIFF, A1C, LIPID, VIDH, CMP, TSH, ANEU ####[place] [address] [address] Albumin/Globulin [Mass ratio] 1.0 {ratio} Low 1.1-2.5 [facility] Comment on above: Performed By: #### C BC, GFR, ADIFF, A1C, LIPID, VIDH, CMP, TSH, ANEU ####[address] [address] ALP [Catalytic activity/Vol] 96 U/L Normal 40-135 [facility] Comment on above: Performed By: #### C BC, GFR, ADIFF, A1C, LIPID, VIDH, CMP, TSH, ANEU ####[address] [address] ALT [Catalytic activity/Vol] 62 U/L High 14-59 [facility] Comment on above: Performed By: #### C BC, GFR, ADIFF, A1C, LIPID, VIDH, CMP, TSH, ANEU ####[address] [place], [place] [address] AST [Catalytic activity/Vol] 70 U/L High 10-40 [facility] Comment on above: Performed By: #### C BC, GFR, ADIFF, A1C, LIPID, VIDH, CMP, TSH, ANEU ####[address] [address] Bili Total 0.4 mg/dL Normal 0.2-1.0 [facility] Comment on above: Result Comment: Use of this assay is not recommended for patients undergoing treatment with eltrombopag due to the potential for falsely elevated results. Performed By: #### C BC, GFR, ADIFF, A1C, LIPID, VIDH, CMP, TSH, ANEU ####[address] [place] [address] BUN/Creatinine Ratio 18 ratio Normal 7-27 [facility] Comment on above: Performed By: #### C BC, GFR, ADIFF, A1C, LIPID, VIDH, CMP, TSH, ANEU ####[address] [place] [address] Calcium [Mass/Vol] 9.1 mg/dL Normal 8.4-10.2 [facility] Comment on above: Performed By: #### C BC, GFR, ADIFF, A1C, LIPID, VIDH, CMP, TSH, ANEU ####[place] [id number] Chloride [Moles/Vol] 98 mmol/L Normal 98-107 [facility] Comment on above: Performed By: #### C BC, GFR, ADIFF, A1C, LIPID, VIDH, CMP, TSH, ANEU ####[address] [place] [address] CO2 [Moles/Vol] 32 mmol/L High 22-29 [facility] Comment on above: Performed By: #### C BC, GFR, ADIFF, A1C, LIPID, VIDH, CMP, TSH, ANEU ####[address] [place] [id number] Creatinine [Mass/Vol] 0.89 mg/dL Normal 0.55-1.02 [facility] Comment on above: Result Comment: Test ing performed on Siemens Dimension EXL analyzer using a modified kinetic Dot technique. Performed By: #### C BC, GFR, ADIFF, A1C, LIPID, VIDH, CMP, TSH, ANEU ####[place] [address] Electrolyte Balance 7.0 mEq/L Normal 4.0-15.0 [facility] Comment on above: Performed By: #### C BC, GFR, ADIFF, A1C, LIPID, VIDH, CMP, TSH, ANEU ####[address] [place], [place] [address] Globulin 3.4 G/dL Normal 1.5-3.8 [facility] Comment on above: Performed By: #### C BC, GFR, ADIFF, A1C, LIPID, VIDH, CMP, TSH, ANEU ####[address] [address] Glucose [Mass/Vol] 136 mg/dL High 70-105 [facility] Comment on above: Performed By: #### C BC, GFR, ADIFF, A1C, LIPID, VIDH, CMP, TSH, ANEU ####[address] [address] Potassium [Moles/Vol] 3.3 mmol/L Low 3.5-5.1 [facility] Comment on above: Performed By: #### C BC, GFR, ADIFF, A1C, LIPID, VIDH, CMP, TSH, ANEU ####[address] [address] Sodium [Moles/Vol] 137 mmol/L Normal 136-145 [facility] Comment on above: Performed By: #### C BC, GFR, ADIFF, A1C, LIPID, VIDH, CMP, TSH, ANEU ####[address] [address] Total Protein 6.7 G/dL Normal 6.4-8.2 [facility] Comment on above: Performed By: #### C BC, GFR, ADIFF, A1C, LIPID, VIDH, CMP, TSH, ANEU ####[address] [address] Urea nitrogen [Mass/Vol] 16 mg/dL Normal 7-18 [facility] Comment on above: Performed By: #### C BC, GFR, ADIFF, A1C, LIPID, VIDH, CMP, TSH, ANEU ####[facility] [place], [place] [address] LIPIDon 06-23-2024 Cholesterol [Mass/Vol] 217 mg/dL High 0-200 [facility] Comment on above: Result Comment: Chol esterol Reference Interval: Less than 200 Desirable 200-239 Borderline high risk 240 and above High risk Performed By: #### C BC, GFR, ADIFF, A1C, LIPID, VIDH, CMP, TSH, ANEU ####[address] [place], [place] [address] Cholesterol in HDL [Mass/Vol] 90 mg/dL High 40-60 [facility] Comment on above: Performed By: #### C BC, GFR, ADIFF, A1C, LIPID, VIDH, CMP, TSH, ANEU ####[address] [place], [place] [address] Cholesterol in LDL [Mass/Vol] 99 mg/dL Normal 0-130 [facility] Comment on above: Performed By: #### C BC, GFR, ADIFF, A1C, LIPID, VIDH, CMP, TSH, ANEU ####[address] [place], [place] [address] Triglyceride [Mass/Vol] 140 mg/dL Normal 0-150 [facility] Comment on above: Result Comment: Trig lyceride Reference Interval: Less than 150 Normal 150-199 Borderline high risk 200-499 High risk 500 or higher Very high risk Performed By: #### C BC, GFR, ADIFF, A1C, LIPID, VIDH, CMP, TSH, ANEU ####[address] [place], [place] [address] TSHon 06-23-2024 TSH Qn 2.39 m[IU]/L Normal 0.36-3.74 [facility] Comment on above: Performed By: #### C BC, GFR, ADIFF, A1C, LIPID, VIDH, CMP, TSH, ANEU ####[address] [place], [place] [address] VIDHon 06-23-2024 Vit. D 25-Hydroxy 39.9 ng/mL Normal [facility] Comment on above: Result Comment: Inte rpretive Values Based on Total 25(OH) Vitamin D: Deficient <20 ng/mL Insufficient 20 - <30 ng/mL Sufficient 30-100 ng/mL Performed By: #### C BC, GFR, ADIFF, A1C, LIPID, VIDH, CMP, TSH, ANEU ####[facility] [place], [place] [address] XR SACROILIAC JOINTS MINIMUM 3 VIEWSon 05-29-2024 XR SACROILIAC JOINTS MINIMUM 3 VIEWS ORIGINAL EXAMINATION: XR SI joints with obliques four views 05/28/2024 9:08 am COMPARISON: None HISTORY: ORDERING SYSTEM PROVIDED HISTORY: Reason for Exam: recurrent back pain, FINDINGS: No acute fracture, dislocation, lytic process or periosteal reaction is seen in the visualized bones and joints. No erosive type of arthritis. No periarticular soft tissue calcification. SI joints are symmetric and unremarkable with no significant arthritic change, ankylosis or diastasis. IMPRESSION: No acute skeletal abnormality is seen.. Negative SI joints. Interpreted by: Gen Mock MD Preliminary Report By: Gen Mock MD Electronically signed By Gen Mock MD Dictated Date: 05/29/2024 1:54:00 PM Prelim Date: 05/29/2024 1:54:47 PM Sign Date: 05/29/2024 1:54:47 PM Ordering Provider: SOLANGE Padilla [facility] XR SPINE LUMBOSACRAL 2 OR 3 VIEWSon 05-29-2024 XR SPINE LUMBOSACRAL 2 OR 3 VIEWS ORIGINAL EXAMINATION: AP and lateral 3 XRAY VIEWS OF THE LUMBAR SPINE05/28/2024 9:09 am COMPARISON: None HISTORY: ORDERING SYSTEM PROVIDED HISTORY: Reason for Exam: back pain recurrent, FINDINGS: There seem to be 5 non rib-bearing lumbar type vertebral bodies on the lateral projection. Vertebral height and alignment is normal. There is disc space narrowing and endplate spurring at L4-5 and L5-S1 with mild to moderate facet arthropathy also. Symmetric normal SI joints. Nonspecific bowel gas pattern with moderate gas in nondilated small and large bowel. IMPRESSION: Lower lumbar degenerative changes. No acute findings. Interpreted by: Gen Mock MD Preliminary Report By: Gen Mock MD Electronically signed By Gen Mock MD Dictated Date: 05/29/2024 3:32:16 PM Prelim Date: 05/29/2024 3:33:45 PM Sign Date: 05/29/2024 3:33:45 PM Ordering Provider: SOLANGE Padilla [facility] URINE CULTURE [CCL]on 2024 Bacteria identified Cx Nom (U) URCUL See Results Below See Below CULTURE, URINE MIXED MICROBIOTA 10,000 -<50,000 CFU/ml Mixed microbiota No further workup. Mixed microbiota can be due to???urine???contamination with s llection technique or straight catheterization for???urine???collection. SOURCE: Urine (Nonspecific) [place] [place] [address] Erick Gutierres III, M.D. [id number] SEND TO NO [facility] Comment on above: Performed By: #### 2 [id number] #### [facility],[address] [facility] [address] Bacteria Ur Culton Bacteria identified Cx Nom (U) ORGANISM ID: 1 10,000 -<50,000 CFU/ml Mixed microbiota No further workup. Mixed microbiota can be due to???urine???contamination with skin bacteria at time of collection or presence of a long-term urinary catheter. If a new culture is needed, please consider re-education of the patient on proper midstream co llection technique or straight catheterization for???urine???collection. [facility] Comment on above: Performed By: #### 1 4196-0, 18910-1 #### [facility] CLIA [id number] [id number] [place] [address] OF [facility] CNPOpal 04-22-2024 CNPN Telephone (HEMAWS) BELLE SMITH ([id number]) 1970 F Date Time Provider Department 04/22/24 AMMON FRYE During your visit today, we recorded the following information about you: Ammon Frye RN 04/22/2024 1:30 PM Signed Call to patient and given message above. She denies any questions. Dayana Frye RN Allergies As of Date: 04/22/2024 Noted Allergy Reaction CODEINE 01/23/2012 2 - Rash HYDROCODONE 06/08/2021 2 - Rash IBUPROFEN 03/11/2024 14 - Other: See Comments Comments: Pt to avoid taking anything that contains ibuprofen due to history of gastric bypass surgery NAPROXEN 06/13/2022 14 - Other: See Comments SULFA (SULFONAMIDE ANTIBIOTICS) 01/23/2012 2 - Rash TRAMADOL 06/13/2022 16 - Unknown Comments: threw me for a loop VICODIN (HYDROCODONE-ACETAMINOPHE*01/04 2 - Rash Date Reviewed: 04/01/2024 Reviewed by: Steve Riley MA - Fully Assessed Reason for Visit: Results [95] Cmt: Lab Prescriptions as of 04/22/2024 - folic acid 1 mg tablet Take 1 mg by mouth once daily. - cholecalciferol (VITAMIN D-3) 400 unit tab Take 400 Units by mouth once daily. - cyanocobalamin (VITAMIN B-12) 500 mcg tablet Take 1 tablet by mouth once daily. - hktvvg-elcaezyo-qhfpsut (CREON) 36,000-114,000- 180,000 unit delayed release capsule Take 3 capsules by mouth three times a day with meals. 3 capsules with meals 2 capsules with snacks - gabapentin (NEURONTIN) 300 mg capsule Take 300 mg by mouth three times a day. - dilTIAZem (CARDIZEM) 30 mg tablet Take 1 tablet by mouth once daily. - ondansetron orally disintegrating (ZOFRAN ODT) 4 mg disintegrating tablet Take 4 mg by mouth every 8 hours as needed. - ferrous sulfate 325 mg (65 mg iron) EC tablet Take 325 mg by mouth once daily. - potassium chloride (K-TAB) 10 mEq tablet Take 10 mEq by mouth two times a day. - pantoprazole DR (PROTONIX) 40 mg tablet Take 1 tablet by mouth two times a day. - methylPREDNISolone (MEDROL DOSE-PACK) 4 mg Dose-Pack - biotin 1 mg cap Take 5,000 mg by mouth once daily. - magnesium oxide 200 mg magnesium chew Take by mouth. - Vitamin Q70-Imkig Acid 0.5-1 mg tab Take by mouth. - cholecalciferol, vitamin D3, 10 mcg (400 unit) cap Dose : 10,000 Int unit =, Oral, qDay, 0 Refill(s) - cetirizine (ZYRTEC) 10 mg tablet Take 10 mg by mouth once daily. - fluticasone (FLONASE) 50 mcg/actuation nasal spray Use 1 [place] in each nostril once daily as needed. - gabapentin (NEURONTIN) 100 mg capsule gabapentin 100 mg capsule - LIDOCAINE PAIN RELIEF 4 % patch 1 Patch once daily as needed. - promethazine (PHENERGAN) 25 mg tablet 25 mg. - FLUoxetine (PROZAC) 40 mg capsule Take 80 mg by mouth once daily. - lisinopril (ZESTRIL) 20 mg tablet lisinopril 20 mg tablet - omeprazole (PRILOSEC) 20 mg capsule Take 1 capsule by mouth once daily. - ALPRAZolam (XANAX) 0.5 mg tablet Take 1 tablet by mouth at bedtime as needed. - hydrochlorothiazide 25 mg tablet Take 1 tablet by mouth once daily. - metFORMIN 1,000 mg tablet Take 1 tablet by mouth twice daily with meals. Problem List As Of Date 04/22/2024 Noted Resolved Chronic cholecystitis [K81.1] 02/16/2012 Incisional hernia [K43.2] 02/16/2012 Skin infection [L08.9] 02/16/2012 Ear problem [H93.90] 11/15/2012 EMANUEL (obstructive sleep apnea) [G47.33] 11/15/2012 Morbid obesity with BMI of 40.0-44.9, adult [E6*11/15/2012 Macromastia [N62] 07/26/2022 Cervicalgia [M54.2] 07/26/2022 Pain in thoracic spine [M54.6] 07/26/2022 Intertrigo [L30.4] 07/26/2022 Encounter Status:Closed by AMMON FRYE on 04/22/24 Normal [facility] PLATELET AGGREGATIONon 04-02 Platelet aggregation ADP induced 10 umol/L (PRP) [Rel units/Vol] 75 % Max Normal 58-93 [facility] Comment on above: Order Comment: Speci men Type: BLOOD SPECIMEN Ordering Facility: [facility] Address: [address] [place] [address] Performed By: #### L [id number], [id number] #### [facility] CLIA [id number] [address] [place] [address] OF [facility] Platelet aggregation ADP induced 20 umol/mL (PRP) [Rel units/Vol] 85 % Max Normal 71-94 [facility] Comment on above: Order Comment: Speci men Type: BLOOD SPECIMEN Ordering Facility: [facility] Address: [address] [place] [address] Performed By: #### L [id number], [id number] #### [facility] CLIA [id number] [address] [place] [address] Platelet aggregation ADP induced ATP secretion 10 umol/L (Bld) [Rel units/Vol] 0.5 nM Normal 0.1-1.4 [facility] Comment on above: Order Comment: Speci men Type: BLOOD SPECIMEN Ordering Facility: [facility] Address: [address] [place] [address] Performed By: #### L [id number], [id number] #### [facility] CLIA [id number] [address] [place] [address] OF [facility] Platelet aggregation ADP induced ATP secretion 5 umol/L (Bld) [Rel units/Vol] 0.4 nM Normal 0.1-1.3 [facility] Comment on above: Order Comment: Speci men Type: BLOOD SPECIMEN Ordering Facility: [facility] Address: [address] [place] [address] Performed By: #### L [id number], [id number] #### [facility] CLIA [id number] [address] [id number] [address] [place] Platelet aggregation ADP induced High dose (PRP) [Rel units/Vol] 89 % Max Normal 65-93 [facility] Comment on above: Order Comment: Speci men Type: BLOOD SPECIMEN Ordering Facility: [facility] Address: [address] [place] [address] Performed By: #### L [id number], [id number] #### [facility] CLIA [id number] [address] [place] [address] Platelet aggregation arachidonate induced 500 ug/mL (PRP) [Rel units/Vol] 95 % Max Normal 75-100 [facility] Comment on above: Order Comment: Speci men Type: BLOOD SPECIMEN Ordering Facility: [facility] Address: [address] [place] [address] Performed By: #### L [id number], [id number] #### [facility] CLIA [id number] [address] [place] [address] Platelet aggregation arachidonate induced ATP secretion 500 umol/L (Bld) [Rel units/Vol] 0.8 nM Normal 0.4-2.0 [facility] Comment on above: Order Comment: Joanni men Type: BLOOD SPECIMEN Ordering Facility: [facility] Address: [address] [place] [address] Performed By: #### L [id number], [id number] #### [facility] CLIA [id number] [address] [place] [address] Platelet aggregation collagen induced ATP secretion 1 ug/mL (Bld) [Rel units/Vol] 0.8 nM Normal 0.4-1.7 [facility] Comment on above: Order Comment: Speci men Type: BLOOD SPECIMEN Ordering Facility: [facility] Address: [address] [place] [address] Performed By: #### L [id number], [id number] #### [facility] CLIA [id number] [address] [place] [address] OF [place] Platelet aggregation collagen induced Qn (Bld) 87 % Max Normal 74-99 [facility] Comment on above: Order Comment: Speci men Type: BLOOD SPECIMEN Ordering Facility: [facility] Address: [address] [place] [address] Performed By: #### L [id number], [id number] #### [facility] CLIA [id number] [address] [place] [address] [place] Platelet aggregation EPINEPHrine induced (PRP) [Rel units/Vol] 91 % Max Normal 70-97 [facility] Comment on above: Order Comment: Speci men Type: BLOOD SPECIMEN Ordering Facility: [facility] Address: [address] [place] [address] Performed By: #### L [id number], [id number] #### [facility] CLIA [id number] [address] [place] [address] [place] Platelet aggregation EPINEPHrine induced 100 umol/L (PRP) [Rel units/Vol] 87 % Max Normal 70-99 [facility] Comment on above: Order Comment: Speci men Type: BLOOD SPECIMEN Ordering Facility: [facility] Address: [address] [place] [address] Performed By: #### L [id number], [id number] #### [facility] CLIA [id number] [address] [place] [address] [place] Platelet aggregation ristocetin induced 1200 ug/mL (PRP) [Rel units/Vol] 96 % Max Normal 76-100 [facility] Comment on above: Order Comment: Speci men Type: BLOOD SPECIMEN Ordering Facility: [facility] Address: [address] [place] [address] Performed By: #### L [id number], [id number] #### [facility] CLIA [id number] [address] [place] [address] [place] Platelet aggregation ristocetin induced 1500 ug/mL (PRP) [Rel units/Vol] 89 % Max Normal 76-100 [facility] Comment on above: Order Comment: Speci men Type: BLOOD SPECIMEN Ordering Facility: [facility] Address: [address] [place] [address] Performed By: #### L [id number], [id number] #### [facility] CLIA [id number] [address] [place] [address] [place] Platelet aggregation ristocetin induced 600 ug/mL (PRP) [Rel units/Vol] 4 % Max Normal 0-9 [facility] Comment on above: Order Comment: Speci men Type: BLOOD SPECIMEN Ordering Facility: [facility] Address: [address] [place] [address] Performed By: #### L [id number], [id number] #### [facility] CLIA [id number] [address] [place] [address] [place] Platelet aggregation ristocetin induced 900 ug/mL (PRP) [Rel units/Vol] 91 % Max Normal 50-100 [facility] Comment on above: Order Comment: Speci men Type: BLOOD SPECIMEN Ordering Facility: [facility] Address: [address] [place] [address] Performed By: #### L [id number], [id number] #### [facility] CLIA [id number] [address] [place] [address] [place] Platelet aggregation thrombin induced ATP secretion 1 U/mL (Bld) [Rel units/Vol] 1.0 nM Normal >0.5 [facility] Comment on above: Order Comment: Speci men Type: BLOOD SPECIMEN Ordering Facility: [facility] Address: [address] [place] [address] Performed By: #### L [id number], [id number] #### [facility] CLIA [id number] [address] [place] [address] [place] Platelet aggregation thrombin induced ATP secretion 5 U/mL (Bld) [Rel units/Vol] 0.4 nM Normal 0.2-1.4 [facility] Comment on above: Order Comment: Speci men Type: BLOOD SPECIMEN Ordering Facility: [facility] Address: [address] [place] [address] Performed By: #### L [id number], [id number] #### [facility] CLIA [id number] [address] [place] [address] [place] PLATELET AGGREGATION INTERPo n 04-02-2024 Heparin Ab Platelet aggregation Ql (PPP) Reviewed by Citlali Brantley M.D., Ph.D Normal [facility] Comment on above: Order Comment: Nicholas diaz Type: BLOOD SPECIMEN Ordering Facility: [facility] Address: [address] [place] [address] Performed By: #### L [id number], [id number] #### [facility] CLIA [id number] [address] [place] [address] STATES [facility] Platelet aggregation (PPP) [Interp] Normal [facility] Comment on above: Order Comment: Nicholas diaz Type: BLOOD SPECIMEN Ordering Facility: [facility] Address: [address] [place] [address] Result Comment: Norm al - see comment below. A laboratory study of platelet aggregation and stimulated granule release was performed. The platelet count and platelet morphology is normal. The platelet aggregation study shows normal aggregation to all agonists. There is normal stimulated dense granule release to ADP, collagen, arachidonic acid and epinephrine. The ristocetin induced platelet aggregation shows a normal dose response. The platelet aggregation study is normal. There is no laboratory evidence for a functional platelet disorder. Performed By: #### L [id number], [id number] #### [facility] CLIA [id number] [address] [place] [address] [place] Plastic Surgery Visit Report on 04-02-2024 Plastic Surgery Visit Report [facility] Plastic Reconstructive Surgery [address] [facility], [address] [place] [address] OFFICE VISIT Date of Service: 04/02/24 MR#: [id number] Acct: [id number] Name: BELLE HAMM Rep #: [id number] : 1970 Provider: Dr. Teresa vu MD Age/Sex: 53/F Location: [facility] Status: Signed Intake Vital Signs 03/12/24 09:40 04/02/24 09:05 Height 5 ft 2 in 5 ft 2 in Weight: 211 lb 6 oz BMI 38.6 BP 142/80 H 102/64 Blood Pressure Location Lt brachial Lt brachial Position Sitting Sitting Respiration 18 18 Pulse 80 93 Temp 98.1 F 98.6 F Temp Source Oral Oral Pulse Oximetry (%) 96 98 Oxygen Delivery Method room air room air Intake Visit Reasons: 3 WK FU Chief Complaint: post valdez breast reduction Is patient in pain?: No Allergies codeine (From Tylenol-Codeine) Allergy (Verified 04/02/24 09:06) Rash hydrocodone (From Vicodin) Allergy (Verified 04/02/24 09:06) Rash Sulfa (Sulfonamide Antibiotics) Allergy (Verified 04/02/24 09:06) Rash NSAIDS (Non-Steroidal Anti-Inflamma Adverse Reaction (Verified 04/02/24 09:06) Other Medications ???Medication ???Instructions ???Recorded ???Confirmed ???Type alprazolam 0.25 mg tablet (Xanax) 0.5 mg PO PRN PRN Anxiety 06/08/21 04/02/24 History fluoxetine 40 mg capsule (Prozac) 80 mg PO DAILY 06/08/21 04/02/24 History gabapentin 100 mg tablet 300 mg PO TID 06/08/21 04/02/24 History hydrochlorothiazide 25 mg tablet 25 mg PO DAILY 06/08/21 04/02/24 History lisinopril 20 mg tablet 20 mg PO DAILY 06/08/21 04/02/24 History metformin 1,000 mg tablet 1,000 mg PO BID 06/08/21 04/02/24 History cetirizine 10 mg tablet 10 mg PO DAILY 01/23/23 04/02/24 History pantoprazole 20 mg tablet,delayed 20 mg PO BID 07/26/23 04/02/24 History release ondansetron 4 mg disintegrating 4 mg PO Q8H PRN nausea and 10/11/23 04/02/24 Rx tablet vomiting #90 tabs amitriptyline 25 mg tablet 25 mg PO QHS #30 TABLETS 11/30/23 04/02/24 Rx buspirone 5 mg tablet 5 mg PO TID 12/19/23 04/02/24 History biotin 2,500 mcg capsule 5 mg PO DAILY 01/04/24 04/02/24 History mupirocin 2 % topical ointment 1 applic topical QDAY #15 grams 02/19/24 04/02/24 Rx bisacodyl 5 mg tablet,delayed 20 mg (4 x 5 mg) PO ONCE #4 tabs 03/12/24 04/02/24 Rx release (Dulcolax (bisacodyl)) cholecalciferol (vitamin D3) 10 10 mcg PO QDAY #30 caps 03/12/24 04/02/24 Rx mcg (400 unit) capsule ferrous sulfate 325 mg (65 mg 325 mg PO QDAY 03/12/24 04/02/24 History iron) tablet folic acid 1 mg tablet 1 mg PO QDAY #30 tabs 03/12/24 04/02/24 Rx sobufb-rhxfhoog-cjmassk 3 cap PO QAC #300 caps 03/12/24 04/02/24 Rx 36,000-114,000-180,000 unit capsule,delay rel (Creon) mecobalamin (vitamin B12) 500 mcg 500 mcg PO DAILY #30 tabs 03/12/24 04/02/24 Rx chewable tablet polyethylene glycol 3350 17 238 g PO ONCE #238 grams 03/12/24 04/02/24 Rx gram/dose oral powder (Miralax) potassium chloride 10 mEq 10 meq PO BID 03/12/24 04/02/24 History capsule,extended release diltiazem HCl 30 mg tablet 30 mg PO QHS #30 TABLETS 04/01/24 04/02/24 Rx cholecalciferol (vitamin D3) 10 PO DAILY 04/02/24 04/02/24 History mcg (400 unit) tablet (Vitamin D3) cyanocobalamin (vitamin B-12) 500 mcg PO DAILY 04/02/24 04/02/24 History mcg tablet metformin 500 mg tablet,extended mg PO 04/02/24 04/02/24 History release 24 hr potassium chloride 10 mEq meq PO 04/02/24 04/02/24 History tablet,extended release Nurse's Note: pt here for post op valdez breast reduction, doing well no issues/concerns Subjective Details: Patient comes in for recheck of the breast reduction done in January. She denies problems. She states she has noted no drainage from her incisions. She states her back feels much better. She is no longer hunched over and can walk faster. Objective Details: Incisions are well-approximated. There is no evidence of infection. There is no open or excoriated areas. She can begin to wear other bras however I discouraged underwires. She does not have to wear her bra at nighttime. Coding Level of Care Code Global Post Op Diagnoses Status post breast reduction Z98.890 [facility] Medical History History of hiatal hernia Sleep apnea Wears glasses Anxiety Diabetes Restless legs Dietary restriction Gastric reflux Former smoker CPAP (continuous positive airway pressure) dependence Neuropathy History of echocardiogram History of stress test Hypertension Encounter for screening for malignant neoplasm of colon Surgical History (Updated 04/02/24 @ 09:08 by Alysia Solo) H/O bilateral breast reduction surgery History of esophagogastroduodenoscopy (EGD) Bariatric surgery status Hx of colonoscopy History (more content not included)... Normal [facility] CNOVSPon 04-01-2024 CNOVSP Visit (SP) Office (H EMAWS) BELLE SMITH ([id number]) 1970 F Date Time Provider Department 04/01/24 8:30 AM JUANJOSE KING During your visit today, we recorded the following information about you: Temperature Pulse Blood pressure Weight 98.5 degrees 68/minute 112/76 95.7 kg Juanjose King MD 04/01/2024 8:56 AM Signed (Elements copied from my note dated March 11, 2024, have been reviewed and updated where appropriate, and all reflect current assessment and medical decision making from today's encounter, April 01, 2024) HISTORY OF PRESENT ILLNESS: Belle Robert Luis is a 53 year old female since summer 2023, noted some petechiae like rash on arms has only on arms, does note some bruises , bruises on legs, last about a week or so. Buspirone started November 2023 Protonix started Breast reduction January 2024, had excessive bruising after surgery, but surgeon noted good hemostasis intraoperatively. Had a hysterectomy, did have heavy periods but was attributed to periods No bleeding tendency prior to summer 2023. Colonoscopy up to date. Here for follow up, buspirone has been stopped as of 3 weeks ago. She has noted improvement in the arm bruises CLINICAL IMPRESSION: Looks like solar purpura, possibly exacerbated by buspirone anemia RECOMMENDATION/PLAN: 1. Will check platelet aggregation studies. Written and verbal health teaching given to patient, patient verbalizes understanding and agrees with treatment plan. PAST MEDICAL HISTORY Diagnosis Date Anxiety Back pain, lumbosacral DJD Cervical back pain with evidence of disc disease 2 BULGING DISC Diabetic acidosis, type II (HCC) GERD (gastroesophageal reflux disease) Hidradenitis suppurativa Hypertension Hyponatremia Incarcerated hernia Kidney stones Sleep apnea Vitamin D deficiency PAST SURGICAL HISTORY Procedure Laterality Date COLONOSCOPY W/BIOPSY SINGLE/MULTIPLE 09/04/2012 EGD TRANSORAL BIOPSY SINGLE/MULTIPLE 09/04/2012 FOOT SURGERY HX Bilateral Hammer toe FOOT/TOES SURGERY PROC UNLISTED 03/05/2001 CARTILAGE REMOVED LEFT FOOT GASTRIC BYPASS HX HYSTERECTOMY HX LAPAROSCOPY SURG CHOLECYSTECTOMY 02/06/2012 NEPHROLITHOTOMY REMOVAL STAGE 1 07/13 AND 01/06 REDUCTION OF LARGE BREAST Bilateral REPAIR FIRST ABDOMINAL WALL HERNIA 02/06/2012 FAMILY HISTORY Problem Relation Age of Onset Diabetes Mother Hypertension Mother other (CHROHN [Other]) Mother other (CHF [Other]) Mother other (CHF [Other]) Father Diabetes Brother Coronary Artery Disease Brother TRIPLE BYPASS Social History Tobacco Use Smoking status: Former Types: Cigarettes Smokeless tobacco: Never Tobacco comments: Pt smoked one pack daily on AND off x 20 years, quit 2012 Vaping Use Vaping status: Never Used Substance Use Topics Alcohol use: Yes Comment: SOCIALLY Drug use: No ALLERGIES: ALLERGIES Allergen Reactions Codeine Rash Hydrocodone Rash Ibuprofen Other: See Comments Pt to avoid taking anything that contains ibuprofen due to history of gastric bypass surgery Naproxen Other: See Comments Sulfa (Sulfonamide * Rash Tramadol Unknown threw me for a loop Vicodin [Hydrocodon* Rash CURRENT OUTPATIENT MEDICATIONS: folic acid 1 mg tablet Take 1 mg by mouth once daily. cholecalciferol (VITAMIN D-3) 400 unit tab Take 400 Units by mouth once daily. cyanocobalamin (VITAMIN B-12) 500 mcg tablet Take 1 tablet by mouth once daily. ilwlza-quifhruz-rdpcpre (CREON) 36,000-114,000- 180,000 unit delayed release capsule Take 3 capsules by mouth three times a day with meals. 3 capsules with meals 2 capsules with snacks gabapentin (NEURONTIN) 300 mg capsule Take 300 mg by mouth three times a day. dilTIAZem (CARDIZEM) 30 mg tablet Take 1 tablet by mouth once daily. ondansetron orally disintegrating (ZOFRAN ODT) 4 mg disintegrating tablet Take 4 mg by mouth every 8 hours as needed. ferrous sulfate 325 mg (65 mg iron) EC tablet Take 325 mg by mouth once daily. potassium chloride (K-TAB) 10 mEq tablet Take 10 mEq by mouth two times a day. pantoprazole DR (PROTONIX) 40 mg tablet Take 1 tablet by mouth two times a day. biotin 1 mg cap Take 5,000 mg by mouth once daily. cholecalciferol, vitamin D3, 10 mcg (400 unit) cap Dose : 10,000 Int unit =, Oral, qDay, 0 Refill(s) cetirizine (ZYRTEC) 10 mg tablet Take 10 mg by mouth once daily. fluticasone (FLONASE) 50 mcg/actuation nasal spray Use 1 [place] in each nostril once daily as needed. LIDOCAINE PAIN RELIEF 4 % patch 1 Patch once daily as needed. FLUoxetine (PROZAC) 40 mg capsule Take 80 mg by mouth once daily. ALPRAZolam (XANAX) 0.5 mg tablet Take 1 tablet by mouth at bedtime as needed. (Patient taking differently: Take 0.5 mg by mouth two times a day as needed.) hydrochlorothiazide 25 mg tablet Take 1 tablet by mouth once daily. metFORMIN 1,000 mg tab (more content not included)... Normal [facility] Mariluz 04-01-2024 JOSE Telephone (PARVEEN) BELLE SMITH ([id number]) 1970 F Date Time Provider Department 04/01/24 JUANJOSE KING During your visit today, we recorded the following information about you: Jazmyne CraigLucrecia 04/01/2024 2:45 PM Signed Please advise if follow ups are to be scheduled from 04/01 visit. Pauline Jeong LPN 04/01/2024 3:26 PM Signed F/U TBD after platelet aggregation test? SHERIF Grubbs Cathleen, RN 04/04/2024 2:[address] King, janet WNL. No follow up needed. Dayana Frye RN Call to patient and aware. She will call back if she has any further questions/needs. Dayana Frye RN Allergies As of Date: 04/01/2024 Noted Allergy Reaction CODEINE 01/23/2012 2 - Rash HYDROCODONE 06/08/2021 2 - Rash IBUPROFEN 03/11/2024 14 - Other: See Comments Comments: Pt to avoid taking anything that contains ibuprofen due to history of gastric bypass surgery NAPROXEN 06/13/2022 14 - Other: See Comments SULFA (SULFONAMIDE ANTIBIOTICS) 01/23/2012 2 - Rash TRAMADOL 06/13/2022 16 - Unknown Comments: threw me for a loop VICODIN (HYDROCODONE-ACETAMINOPHE*01/04 2 - Rash Date Reviewed: 04/01/2024 Reviewed by: Steve Riley MA - Fully Assessed Reason for Visit: AVS 04/01 [Other] Prescriptions as of 04/04/2024 - folic acid 1 mg tablet Take 1 mg by mouth once daily. - cholecalciferol (VITAMIN D-3) 400 unit tab Take 400 Units by mouth once daily. - cyanocobalamin (VITAMIN B-12) 500 mcg tablet Take 1 tablet by mouth once daily. - huxlfl-utfextyv-xywwjod (CREON) 36,000-114,000- 180,000 unit delayed release capsule Take 3 capsules by mouth three times a day with meals. 3 capsules with meals 2 capsules with snacks - gabapentin (NEURONTIN) 300 mg capsule Take 300 mg by mouth three times a day. - dilTIAZem (CARDIZEM) 30 mg tablet Take 1 tablet by mouth once daily. - ondansetron orally disintegrating (ZOFRAN ODT) 4 mg disintegrating tablet Take 4 mg by mouth every 8 hours as needed. - ferrous sulfate 325 mg (65 mg iron) EC tablet Take 325 mg by mouth once daily. - potassium chloride (K-TAB) 10 mEq tablet Take 10 mEq by mouth two times a day. - pantoprazole DR (PROTONIX) 40 mg tablet Take 1 tablet by mouth two times a day. - methylPREDNISolone (MEDROL DOSE-PACK) 4 mg Dose-Pack - biotin 1 mg cap Take 5,000 mg by mouth once daily. - magnesium oxide 200 mg magnesium chew Take by mouth. - Vitamin R20-Wklds Acid 0.5-1 mg tab Take by mouth. - cholecalciferol, vitamin D3, 10 mcg (400 unit) cap Dose : 10,000 Int unit =, Oral, qDay, 0 Refill(s) - cetirizine (ZYRTEC) 10 mg tablet Take 10 mg by mouth once daily. - fluticasone (FLONASE) 50 mcg/actuation nasal spray Use 1 [place] in each nostril once daily as needed. - gabapentin (NEURONTIN) 100 mg capsule gabapentin 100 mg capsule - LIDOCAINE PAIN RELIEF 4 % patch 1 Patch once daily as needed. - promethazine (PHENERGAN) 25 mg tablet 25 mg. - FLUoxetine (PROZAC) 40 mg capsule Take 80 mg by mouth once daily. - lisinopril (ZESTRIL) 20 mg tablet lisinopril 20 mg tablet - omeprazole (PRILOSEC) 20 mg capsule Take 1 capsule by mouth once daily. - ALPRAZolam (XANAX) 0.5 mg tablet Take 1 tablet by mouth at bedtime as needed. - hydrochlorothiazide 25 mg tablet Take 1 tablet by mouth once daily. - metFORMIN 1,000 mg tablet Take 1 tablet by mouth twice daily with meals. Problem List As Of Date 04/01/2024 Noted Resolved Chronic cholecystitis [K81.1] 02/16/2012 Incisional hernia [K43.2] 02/16/2012 Skin infection [L08.9] 02/16/2012 Ear problem [H93.90] 11/15/2012 EMANUEL (obstructive sleep apnea) [G47.33] 11/15/2012 Morbid obesity with BMI of 40.0-44.9, adult [E6*11/15/2012 Macromastia [N62] 07/26/2022 Cervicalgia [M54.2] 07/26/2022 Pain in thoracic spine [M54.6] 07/26/2022 Intertrigo [L30.4] 07/26/2022 Encounter Status:Closed by AMMON FRYE on 04/04/24 [facility] ED Provider Noteon ED Provider Note EMERGENCY DEPARTMENT ENCOUNTER Pt Name: Belle Smith Birthdate 1970 Date of evaluation: 03/31/2024 ED Provider: Herbert Higgins DO CHIEF COMPLAINT Chief Complaint Patient presents with Dental Pain Pt c/o dental pain x 2 weeks HISTORY OF PRESENT ILLNESS (Location/Symptom, Timing/Onset, Context/Setting, Quality, Duration, Modifying Factors, Severity) Note limiting factors. I wore appropriate PPE for the entirety of this encounter. HPI Belle Smith is a 53 y.o. who presents to the emergency department for evaluation of dental pain, ongoing for last 2 weeks. No fevers or chills. No associated swelling. She has an appoint with her dentist in May. She states that she knows she has a bad tooth on the right lower side and has been giving her problems. She is eating and drinking. She has been using Tylenol for pain. Nursing Notes were reviewed. Limitations to history: None Outside historians: None REVIEW OF SYSTEMS Review of Systems Constitutional: Negative for chills and fever. HENT: Negative for ear pain and sore throat. Right lower dental pain Eyes: Negative for pain and visual disturbance. Respiratory: Negative for cough and shortness of breath. Cardiovascular: Negative for chest pain and palpitations. Gastrointestinal: Negative for abdominal pain and vomiting. Genitourinary: Negative for dysuria and hematuria. Musculoskeletal: Negative for arthralgias and back pain. Skin: Negative for color change and rash. Neurological: Negative for seizures and syncope. All other systems reviewed and are negative. Pertinent positives and negatives as per HPI PAST MEDICAL HISTORY Past Medical History: Diagnosis Date Anxiety Back pain Deficiency of multiple nutrient elements Diabetes mellitus (HCC) GERD (gastroesophageal reflux disease) Hernia, epigastric Hiatal hernia High blood pressure High cholesterol History of kidney stones History of UTI Incontinence Intestinal malabsorption Morbid obesity (HCC) Nausea & vomiting EMANUEL (obstructive sleep apnea) Shortness of breath on exertion Snoring Vitamin B1 deficiency 04/18/2018 Vitamin D deficiency 04/16/2018 Yeast infection Zinc deficiency 04/18/2018 SURGICAL HISTORY Past Surgical History: Procedure Laterality Date CHOLECYSTECTOMY 2012 W/ Hernia repair [facility] FOOT SURGERY 2002 Dr. Sue Noriega x2 GASTRIC BYPASS 07/24/2018 [facility] - Dr. Sorto HERNIA REPAIR 2011 W/ Lap [facility] KIDNEY STONE SURGERY 2010 [place] KIDNEY STONE SURGERY 2003 [facility] TOTAL ABDOMINAL HYSTERECTOMY 2005 [facility] TUBAL LIGATION 1993 [place] UPPER GASTROINTESTINAL ENDOSCOPY 04/22/2018 Dr. Sorto, antral bx CURRENT MEDICATIONS Previous Medications ALBUTEROL 108 (90 BASE) MCG/ACT INHALER INHALE 2 PUFFS BY MOUTH EVERY 4 HOURS NEEDED FOR COUGH ALPRAZOLAM (XANAX) 0.5 MG TABLET TAKE ONE TABLET TWICE DAILY FOR 30 DAYS AMITRIPTYLINE (ELAVIL) 25 MG TABLET Take 1 tablet by mouth Nightly. ALLERGIES Codeine, Hydrocodone-acetaminophen, and Sulfa antibiotics FAMILY HISTORY Family History Problem Relation Name Age of Onset Liver disease Mother Hepatitis C, liver cirrhosis Liver cancer Neg Hx Stroke Maternal Grandmother Diabetes Maternal Grandmother Obesity Paternal Grandfather Stomach cancer Neg Hx Heart disease Father Colon cancer Neg Hx High Blood Pressure Paternal Grandfather High Blood Pressure Mother Heart disease Maternal Grandmother Heart disease Mother Diabetes Father Diabetes Mother Coronary artery disease Father High Blood Pressure Father High Blood Pressure Brother Heart disease Paternal Grandfather Obesity Father Coronary artery disease Brother Heart disease Maternal Grandfather Inflammatory bowel disease Mother 50.00 Diabetes Paternal Grandfather Diabetes Brother Heart disease Brother Diabetes Maternal Grandfather Stroke Maternal Grandfather SOCIAL HISTORY Social History Socioeconomic History Marital status: Tobacco Use Smoking status: Former Current packs/day: 0.00 Average packs/day: 1 pack/day for 23.0 years (23.0 ttl pk-yrs) Types: Cigarettes Start date: 03/05/1989 Quit date: 03/05/2012 Years since quittin.0 Smokeless tobacco: Never Substance and Sexual Activity Alcohol use: Not Currently Alcohol/week: 1.0 standard drink of alcohol Drug use: Never PHYSICAL EXAM ED Triage Vitals [03/31/24 0829] Temp Heart Rate Resp BP 36.6 ?C (97.8 ?F) 72 18 109/68 SpO2 Temp src Heart Rate Source Patient Position 99 % -- -- -- BP Location FiO2 (%) -- -- Physical Exam Vitals and nursing note reviewed. Constitutional: General: She is not in acute distress. Appearance: She is well-developed. HENT: Head: Normocephalic and atraumatic. Nose: Nose normal. Mouth/Throat: Pharynx: Oropharynx is clear. Comments: No trismus stridor or drooling. The # (more content not included)... Normal [facility] LABORATORYOrdered By: Tommy Baxter on 03-27-2024 Albumin DL <= 20 mg/L (U) [Mass/Vol] 202 mcg/dL Invalid Interpretation Code AO ADM SS Albumin/Creatinine DL <= 20 mg/L (U) [Mass ratio] 6 mcg/mg Normal 0 - 30 mcg/mg AO Chemistry S Creatinine (U) [Mass/Vol] 35.2 mg/dL Invalid Interpretation Code AO ADM SS MALBRon 03-27-2024 U Creatinine 35.2 mg/dL Normal [facility] Comment on above: Performed By: #### M ALBR ####[id number] [place], [place] [address] U Microalb 202 mcg/dL Normal [facility] Comment on above: Performed By: #### M ALBR ####[id number] [place], [place] [address] U Ratio Alb/Cre 6 mcg/mg Normal 0-30 [facility] Comment on above: Performed By: #### M ALBR ####[id number] [place], [place] [address] Gastroenterology Visit Repor ton 03-12-2024 Gastroenterology Visit Report [facility] Gastroenterology [address] [place] [address] OFFICE VISIT Date of Service: 03/12/24 MR#: [id number] Acct: [id number] Name: BELLE HAMM Rep #: [id number] : 1970 Provider: Moncho Carrillo DO Age/Sex: 53/F Location: [facility] Status: Signed Intake Vital Signs 01/30/23 14:02 01/18/24 06:21 02/25/24 09:32 Height 5 ft 2 in 5 ft 2 in 5 ft 2 in Intake Visit Reasons: 6 M FU Allergies codeine (From Tylenol-Codeine) Allergy (Verified 03/12/24 09:41) Rash hydrocodone (From Vicodin) Allergy (Verified 03/12/24 09:41) Rash Sulfa (Sulfonamide Antibiotics) Allergy (Verified 03/12/24 09:41) Rash NSAIDS (Non-Steroidal Anti-Inflamma Adverse Reaction (Verified 03/12/24 09:41) Other Medications ???Medication ???Instructions ???Recorded ???Confirmed ???Type alprazolam 0.25 mg tablet (Xanax) 0.5 mg PO PRN PRN Anxiety 06/08/21 03/12/24 History fluoxetine 40 mg capsule (Prozac) 80 mg PO DAILY 06/08/21 03/12/24 History gabapentin 100 mg tablet 300 mg PO TID 06/08/21 03/12/24 History hydrochlorothiazide 25 mg tablet 25 mg PO DAILY 06/08/21 03/12/24 History lisinopril 20 mg tablet 20 mg PO DAILY 06/08/21 03/12/24 History metformin 1,000 mg tablet 1,000 mg PO BID 06/08/21 03/12/24 History cetirizine 10 mg tablet 10 mg PO DAILY 01/23/23 03/12/24 History pantoprazole 20 mg tablet,delayed 20 mg PO BID 07/26/23 03/12/24 History release ondansetron 4 mg disintegrating 4 mg PO Q8H PRN nausea and 10/11/23 03/12/24 Rx tablet vomiting #90 tabs amitriptyline 25 mg tablet 25 mg PO QHS #30 TABLETS 11/30/23 03/12/24 Rx buspirone 5 mg tablet 5 mg PO TID 12/19/23 03/12/24 History biotin 2,500 mcg capsule 5 mg PO DAILY 01/04/24 03/12/24 History mupirocin 2 % topical ointment 1 applic topical QDAY #15 grams 02/19/24 03/12/24 Rx diltiazem HCl 30 mg tablet 30 mg PO QHS #30 TABLETS 02/28/24 03/12/24 Rx ferrous sulfate 325 mg (65 mg 325 mg PO QDAY 03/12/24 03/12/24 History iron) tablet potassium chloride 10 mEq 10 meq PO BID 03/12/24 03/12/24 History capsule,extended release PFSH Medical History History of hiatal hernia Sleep apnea Wears glasses Anxiety Diabetes Restless legs Dietary restriction Gastric reflux Former smoker CPAP (continuous positive airway pressure) dependence Neuropathy History of echocardiogram History of stress test Hypertension Encounter for screening for malignant neoplasm of colon Surgical History History of esophagogastroduodenoscopy (EGD) Bariatric surgery status Hx of colonoscopy History of esophagogastroduodenoscopy (EGD) Hx of hernia repair History of tonsillectomy and adenoidectomy Hx of foot surgery Hx of total hysterectomy Hx of gastric bypass Hx laparoscopic cholecystectomy Family History Brother Diabetes Heart disease Social History Smoking Status: Former smoker how long ago did patient quit smoking: quit 2012 alcohol intake: never substance use type: does not use additional social history: denies vaping, denies marijuana use, denies edible, denies aspirin use denies ibuprofen HPI HPI Details: BELLE HAMM, is a 53 F who presents to the office today for follow up. *I established 04.14.21 for screening colonoscopy and intermittent esophageal dysphagia. History of Cristian-en-Y gastric bypass 2018; cholecystectomy 09.11.18 ? EGD and colonoscopy 06.13.21 Irregular Zline; small hiatal hernia; Cristian-en-y gastrojejunostomy with healthy anastomosis. Metaplasia neg. ? Colonoscopy hemorrhoids; diverticulosis. No specimens OV 09.30.21 still has intermittent dysphagia but finds PPI and gas-X helpful. Start reglan and PPI BID. OV 01.11.23 she has been having nausea followed by dysphagia with intermittent emesis following PO intake. She is not taking protonix or reglan. BM pattern is regular and without difficulty. ? EGD 01.30.23 esophageal stenosis, Savary 60F; irregular Zline; medium hiatal hernia; Cristian-en-Y with healthy anastomosis. No metaplasia ? Upper GISBFT 02.12.23 no acute/chronic abnormality. OV 02.16.23 feels swallowing, nausea have improved but are still present; epigastric pain continues. Admits to poor diet as she does a lot of traveling. OV 07.24. pt reports that N/V have improved and occur maybe once or twice a month. Pt continues to struggle with swallowing and feels like food is getting stuck in her throat. EGD 09.20.23 Benign-appearing esophageal stenosis. Dilate (more content not included)... Normal [facility] Plastic Surgery Visit Report on 03-12-2024 Plastic Surgery Visit Report [facility] Plastic Reconstructive Surgery [address], [address] [place] [address] OFFICE VISIT Date of Service: 03/12/24 MR#: [id number] Acct: [id number] Name: JOANNEALEXANDERBELLE Robert Rep #: [id number] : 1970 Provider: Dr. Teresa vu MD Age/Sex: 53/F Location: [facility] Status: Signed Intake Vital Signs 02/25/24 09:32 03/12/24 09:40 Height 5 ft 2 in 5 ft 2 in BP 126/79 H 142/80 H Blood Pressure Location Lt brachial Lt brachial Position Sitting Sitting Respiration 18 18 Pulse 56 L 80 Temp 98.0 F 98.1 F Temp Source Oral Oral Pulse Oximetry (%) 96 96 Oxygen Delivery Method room air room air Intake Visit Reasons: 2 W F/U Chief Complaint: post valdez breast reduction Is patient in pain?: No Allergies codeine (From Tylenol-Codeine) Allergy (Verified 03/12/24 09:41) Rash hydrocodone (From Vicodin) Allergy (Verified 03/12/24 09:41) Rash Sulfa (Sulfonamide Antibiotics) Allergy (Verified 03/12/24 09:41) Rash NSAIDS (Non-Steroidal Anti-Inflamma Adverse Reaction (Verified 03/12/24 09:41) Other Medications ???Medication ???Instructions ???Recorded ???Confirmed ???Type alprazolam 0.25 mg tablet (Xanax) 0.5 mg PO PRN PRN Anxiety 06/08/21 03/12/24 History fluoxetine 40 mg capsule (Prozac) 80 mg PO DAILY 06/08/21 03/12/24 History gabapentin 100 mg tablet 300 mg PO TID 06/08/21 03/12/24 History hydrochlorothiazide 25 mg tablet 25 mg PO DAILY 06/08/21 03/12/24 History lisinopril 20 mg tablet 20 mg PO DAILY 06/08/21 03/12/24 History metformin 1,000 mg tablet 1,000 mg PO BID 06/08/21 03/12/24 History cetirizine 10 mg tablet 10 mg PO DAILY 01/23/23 03/12/24 History pantoprazole 20 mg tablet,delayed 20 mg PO BID 07/26/23 03/12/24 History release ondansetron 4 mg disintegrating 4 mg PO Q8H PRN nausea and 10/11/23 03/12/24 Rx tablet vomiting #90 tabs amitriptyline 25 mg tablet 25 mg PO QHS #30 TABLETS 11/30/23 03/12/24 Rx buspirone 5 mg tablet 5 mg PO TID 12/19/23 03/12/24 History biotin 2,500 mcg capsule 5 mg PO DAILY 01/04/24 03/12/24 History mupirocin 2 % topical ointment 1 applic topical QDAY #15 grams 02/19/24 03/12/24 Rx diltiazem HCl 30 mg tablet 30 mg PO QHS #30 TABLETS 02/28/24 03/12/24 Rx ferrous sulfate 325 mg (65 mg 325 mg PO QDAY 03/12/24 03/12/24 History iron) tablet potassium chloride 10 mEq 10 meq PO BID 03/12/24 03/12/24 History capsule,extended release Nurse's Note: pt here post valdez breast reduction, no issues, feels healing nicely. Subjective Details: Belle comes in for recheck of the breast reduction done in January. She denies any problems. Objective Details: Incisions are well-approximated. There is a small crust at the base of the right breast. There is no evidence of infection or hematoma. The patient is to continue wearing gauze on the site until that crust is . She can begin laying flat in bed. I will see her back in 3 weeks for recheck. Coding Level of Care Code Global Post Op Diagnoses Status post breast reduction Z98.890 [facility] Medical History History of hiatal hernia Sleep apnea Wears glasses Anxiety Diabetes Restless legs Dietary restriction Gastric reflux Former smoker CPAP (continuous positive airway pressure) dependence Neuropathy History of echocardiogram History of stress test Hypertension Encounter for screening for malignant neoplasm of colon Surgical History History of esophagogastroduodenoscopy (EGD) Bariatric surgery status Hx of colonoscopy History of esophagogastroduodenoscopy (EGD) Hx of hernia repair History of tonsillectomy and adenoidectomy Hx of foot surgery Hx of total hysterectomy Hx of gastric bypass Hx laparoscopic cholecystectomy Family History Brother Diabetes Heart disease Social History Smoking Status: Former smoker how long ago did patient quit smoking: quit 2012 alcohol intake: never substance use type: does not use additional social history: denies vaping, denies marijuana use, denies edible, denies aspirin use denies ibuprofen Assessment and Plan (No Qualifiers) Assessment and Plan (1) Status post breast reduction: Status: Acute 03/12/24 1636 Date Teresa Perazaigner Signature: Date (if applicable) CC: Normal [facility] ACTIVATED PARTIAL THROMBOPLA STIN TIMEOrdered By: Marine Lim on 03-11-2024 aPTT Coag (PPP) [Time] 26.2 s [facility] CBC W Auto Differential pane l (Bld)on 03-11-2024 Basophils (Bld) [#/Vol] [facility] Basophils/100 WBC (Bld) 0.4 % [facility] Differential cell count method Nom (Bld) Auto [facility] Eosinophils (Bld) [#/Vol] 0.04 10*3/uL [facility] Eosinophils/100 WBC (Bld) 0.7 % [facility] Erythrocyte distribution width (RBC) [Ratio] 12.7 % 11.5 - 15.0 % [facility] Hematocrit (Bld) [Volume fraction] 36.2 % 36.0 - 46.0 % [facility] Hemoglobin (Bld) [Mass/Vol] 11.5 g/dL 11.5 - 15.5 g/dL [facility] Immature granulocytes (Bld) [#/Vol] [facility] Immature granulocytes/100 WBC (Bld) 0.2 % [facility] Lymphocytes (Bld) [#/Vol] 1.95 10*3/uL [facility] Lymphocytes/100 WBC (Bld) 35.8 % [facility] MCH (RBC) [Entitic mass] 29.4 pg 26.0 - 34.0 pg [facility] MCHC (RBC) [Mass/Vol] 31.8 g/dL 30.5 - 36.0 g/dL [facility] MCV (RBC) [Entitic vol] 92.6 fL 80.0 - 100.0 fL [facility] Monocytes (Bld) [#/Vol] 0.40 10*3/uL [facility] Monocytes/100 WBC (Bld) 7.3 % [facility] Neutrophils (Bld) [#/Vol] 3.03 10*3/uL [facility] Neutrophils/100 WBC (Bld) 55.6 % [facility] Nucleated RBC (Bld) [#/Vol] NINF [facility] Nucleated RBC/100 WBC (Bld) [Ratio] 0.0 % /100 WBC [facility] Platelet mean volume (Bld) [Entitic vol] 10.6 fL 9.0 - 12.7 fL [facility] Platelets (Bld) [#/Vol] 233 10*3/uL [facility] RBC (Bld) [#/Vol] 3.91 10*6/uL 3.90 - 5.20 m/uL [facility] WBC (Bld) [#/Vol] 5.45 10*3/uL [facility] Basophils (Bld) [#/Vol] 10*3/uL Normal <0.11 [facility] Comment on above: Order Comment: Speci men Type: BLOOD SPECIMEN Ordering Facility: [facility] Address: [address] [place] [address] Performed By: #### 1 4196-0, 82975-8 #### [id number] [address] [place] [address] [place] Basophils/100 WBC (Bld) 0.4 % Normal [facility] Comment on above: Order Comment: Speci men Type: BLOOD SPECIMEN Ordering Facility: [facility] Address: [address] [place] [address] Performed By: #### 1 4196-0, 32281-2 #### [facility] CLIA [id number] [address] [place] [address] [place] Differential cell count method Nom (Bld) Auto Normal [facility] Comment on above: Order Comment: Speci men Type: BLOOD SPECIMEN Ordering Facility: [facility] Address: [address] [place] [address] Performed By: #### 1 4196-0, 63718-7 #### [facility] [id number] [address] [place] [address] [place] Eosinophils (Bld) [#/Vol] 0.04 10*3/uL Normal <0.46 [facility] Comment on above: Order Comment: Speci men Type: BLOOD SPECIMEN Ordering Facility: [facility] Address: [address] [place] [address] Performed By: #### 1 4196-0, 11260-4 #### [facility] CLIA [id number] [address] [place] [address] [place] Eosinophils/100 WBC (Bld) 0.7 % Normal [facility] Comment on above: Order Comment: Speci men Type: BLOOD SPECIMEN Ordering Facility: [facility] Address: [address] [place] [address] Performed By: #### 1 4196-0, 34662-7 #### [facility] CLIA [id number] [address] [place] [address] [place] Erythrocyte distribution width (RBC) [Ratio] 12.7 % Normal 11.5-15.0 [facility] Comment on above: Order Comment: Speci men Type: BLOOD SPECIMEN Ordering Facility: [facility] Address: [address] [place] [address] Performed By: #### 1 4196-0, 87705-1 #### [facility] CLIA [id number] [address] [place] [address] [place] Hematocrit (Bld) [Volume fraction] 36.2 % Normal 36.0-46.0 [facility] Comment on above: Order Comment: Speci men Type: BLOOD SPECIMEN Ordering Facility: [facility] Address: [address] [place] [address] Performed By: #### 1 4196-0, 29959-0 #### [facility] CLIA [id number] [address] [place] [address] [place] Hemoglobin (Bld) [Mass/Vol] 11.5 g/dL Normal 11.5-15.5 [facility] Comment on above: Order Comment: Speci men Type: BLOOD SPECIMEN Ordering Facility: [facility] Address: [address] [place] [address] Performed By: #### 1 4196-0, 50037-2 #### [facility] CLIA [id number] [address] [place] [address] [place] Immature granulocytes (Bld) [#/Vol] 10*3/uL Normal <0.10 [facility] Comment on above: Order Comment: Speci men Type: BLOOD SPECIMEN Ordering Facility: [facility] Address: [address] [place] [address] Performed By: #### 1 4196-0, 48738-6 #### [facility] CLIA [id number] [address] [place] [address] [place] Immature granulocytes/100 WBC (Bld) 0.2 % Normal [facility] Comment on above: Order Comment: Speci men Type: BLOOD SPECIMEN Ordering Facility: [facility] Address: [address] [place] [address] Performed By: #### 1 4196-0, 20682-8 #### [facility] CLIA [id number] [address] [place] [address] [place] Lymphocytes (Bld) [#/Vol] 1.95 10*3/uL Normal 1.00-4.00 [facility] Comment on above: Order Comment: Speci men Type: BLOOD SPECIMEN Ordering Facility: [facility] Address: [address] [place] [address] Performed By: #### 1 4196-0, 88302-9 #### [facility] CLIA [id number] [address] [place] [address] [place] Lymphocytes/100 WBC (Bld) 35.8 % Normal [facility] Comment on above: Order Comment: Speci men Type: BLOOD SPECIMEN Ordering Facility: [facility] Address: [address] [place] [address] Performed By: #### 1 4196-0, 11157-2 #### [facility] CLIA [id number] [address] [place] [address] MCH (RBC) [Entitic mass] 29.4 pg Normal 26.0-34.0 [facility] Comment on above: Order Comment: Speci men Type: BLOOD SPECIMEN Ordering Facility: [facility] Address: [address] [place] [address] Performed By: #### 1 4196-0, 49700-6 #### [facility] CLIA [id number] [address] [place] [address] [place] MCHC (RBC) [Mass/Vol] 31.8 g/dL Normal 30.5-36.0 [facility] Comment on above: Order Comment: Speci men Type: BLOOD SPECIMEN Ordering Facility: [facility] Address: [address] [place] [address] Performed By: #### 1 4196-0, 46312-6 #### [facility] CLIA [id number] [address] [place] [address] [place] MCV (RBC) [Entitic vol] 92.6 fL Normal 80.0-100.0 [facility] Comment on above: Order Comment: Speci men Type: BLOOD SPECIMEN Ordering Facility: [facility] Address: [address] [place] [address] Performed By: #### 1 4196-0, 44319-2 #### [facility] CLIA [id number] [address] [place] [address] [place] Monocytes (Bld) [#/Vol] 0.40 10*3/uL Normal <0.87 [facility] Comment on above: Order Comment: Speci men Type: BLOOD SPECIMEN Ordering Facility: [facility] Address: [address] [place] [address] Performed By: #### 1 4196-0, 72184-7 #### [facility] CLIA [id number] [address] [place] [address] [place] Monocytes/100 WBC (Bld) 7.3 % Normal [facility] Comment on above: Order Comment: Speci men Type: BLOOD SPECIMEN Ordering Facility: [facility] Address: [address] [place] [address] Performed By: #### 1 4196-0, 47493-4 #### [facility] CLIA [id number] [address] [place] [address] [place] Neutrophils (Bld) [#/Vol] 3.03 10*3/uL Normal 1.45-7.50 [facility] Comment on above: Order Comment: Speci men Type: BLOOD SPECIMEN Ordering Facility: [facility] Address: [address] [place] [address] Performed By: #### 1 4196-0, 25086-1 #### [facility] CLIA [id number] [address] [place] [address] [place] Neutrophils/100 WBC (Bld) 55.6 % Normal [facility] Comment on above: Order Comment: Speci men Type: BLOOD SPECIMEN Ordering Facility: [facility] Address: [address] [place] [address] Performed By: #### 1 4196-0, 31366-2 #### [facility] CLIA [id number] [address] [place] [address] [place] Nucleated RBC (Bld) [#/Vol] 10*3/uL Normal <0.01 [facility] Comment on above: Order Comment: Speci men Type: BLOOD SPECIMEN Ordering Facility: [facility] Address: [address] [place] [address] Performed By: #### 1 4196-0, 40711-3 #### [facility] CLIA [id number] [address] [place] [address] [place] Nucleated RBC/100 WBC (Bld) [Ratio] 0.0 /100 WBC Normal [facility] Comment on above: Order Comment: Speci men Type: BLOOD SPECIMEN Ordering Facility: [facility] Address: [address] [place] [address] Performed By: #### 1 4196-0, 21376-9 #### [facility] CLIA [id number] [address] [place] [address] [place] Platelet mean volume (Bld) [Entitic vol] 10.6 fL Normal 9.0-12.7 [facility] Comment on above: Order Comment: Speci men Type: BLOOD SPECIMEN Ordering Facility: [facility] Address: [address] [place] [address] Performed By: #### 1 4196-0, 56186-0 #### [id number] [address] [place] [address] [place] Platelets (Bld) [#/Vol] 233 10*3/uL Normal 150-400 [facility] Comment on above: Order Comment: Speci men Type: BLOOD SPECIMEN Ordering Facility: [facility] Address: [address] [place] [address] Performed By: #### 1 4196-0, 87263-2 #### [facility] [id number] [address] [place] [address] [place] RBC (Bld) [#/Vol] 3.91 10*6/uL Normal 3.90-5.20 [facility] Comment on above: Order Comment: Speci men Type: BLOOD SPECIMEN Ordering Facility: [facility] Address: [address] [place] [address] Performed By: #### 1 4196-0, 84931-5 #### [facility] CLIA [id number] [address] [place] [address] [place] WBC (Bld) [#/Vol] 5.45 10*3/uL Normal 3.70-11.00 [facility] [place] Comment on above: Order Comment: Speci men Type: BLOOD SPECIMEN Ordering Facility: [facility] Address: [address] [place] [address] Performed By: #### 1 4196-0, 98879-4 #### [facility] CLIA [id number] [address] [place], [place] [id number] [place] CNOVSPon 03-11-2024 CNOVSP Visit (SP) Office (H EMAWS) BELLE SMITH ([id number]) 1970 F Date Time Provider Department 03/11/24 9:00 AM JUANJOSE KING During your visit today, we recorded the following information about you: Temperature Pulse Blood pressure Weight 97.8 degrees 56/minute 134/83 97.5 kg Height 1.575 m Juanjose King MD 03/11/2024 11:41 AM Signed HISTORY OF PRESENT ILLNESS: Belle Robert Smith is a 53 year old female since summer 2023, noted some petechiae like rash on arms has only on arms, does note some bruises , bruises on legs, last about a week or so. Buspirone started November 2023 Protonix started Breast reduction January 2024, had excessive bruising after surgery, but surgeon noted good hemostasis intraoperatively. Had a hysterectomy, did have heavy periods but was attributed to periods No bleeding tendency prior to summer 2023. Colonoscopy up to date. CLINICAL IMPRESSION: Looks like solar purpura, possibly exacerbated by buspirone anemia RECOMMENDATION/PLAN: 1. Labs today including cbc, PT/PTT and anemia studies 2. Back in 3 week, she'll see if she can stop buspirone, possible platelet aggregation studies at that time Written and verbal health teaching given to patient, patient verbalizes understanding and agrees with treatment plan. PAST MEDICAL HISTORY Diagnosis Date Anxiety Back pain, lumbosacral DJD Cervical back pain with evidence of disc disease 2 BULGING DISC Diabetic acidosis, type II (HCC) GERD (gastroesophageal reflux disease) Hidradenitis suppurativa Hypertension Hyponatremia Incarcerated hernia Kidney stones Sleep apnea Vitamin D deficiency PAST SURGICAL HISTORY Procedure Laterality Date COLONOSCOPY W/BIOPSY SINGLE/MULTIPLE 09/04/2012 EGD TRANSORAL BIOPSY SINGLE/MULTIPLE 09/04/2012 FOOT/TOES SURGERY PROC UNLISTED 03/05/2001 CARTILAGE REMOVED LEFT FOOT GASTRIC BYPASS HX HYSTERECTOMY HX LAPAROSCOPY SURG CHOLECYSTECTOMY 02/06/2012 NEPHROLITHOTOMY REMOVAL STAGE 1 07/13 AND 01/06 REDUCTION OF LARGE BREAST Bilateral REPAIR FIRST ABDOMINAL WALL HERNIA 02/06/2012 FAMILY HISTORY Problem Relation Age of Onset Diabetes Mother Hypertension Mother other (CHROHN [Other]) Mother other (CHF [Other]) Mother other (CHF [Other]) Father Diabetes Brother Coronary Artery Disease Brother TRIPLE BYPASS Social History Tobacco Use Smoking status: Former Types: Cigarettes Smokeless tobacco: Never Tobacco comments: Pt smoked one pack daily on AND off x 20 years, quit 2012 Vaping Use Vaping status: Never Used Substance Use Topics Alcohol use: Yes Comment: SOCIALLY Drug use: No ALLERGIES: ALLERGIES Allergen Reactions Codeine Rash Hydrocodone Rash Ibuprofen Other: See Comments Pt to avoid taking anything that contains ibuprofen due to history of gastric bypass surgery Naproxen Other: See Comments Sulfa (Sulfonamide * Rash Tramadol Unknown threw me for a loop Vicodin [Hydrocodon* Rash CURRENT OUTPATIENT MEDICATIONS: gabapentin (NEURONTIN) 300 mg capsule Take 300 mg by mouth three times a day. dilTIAZem (CARDIZEM) 30 mg tablet Take 1 tablet by mouth once daily. ondansetron orally disintegrating (ZOFRAN ODT) 4 mg disintegrating tablet Take 4 mg by mouth every 8 hours as needed. ferrous sulfate 325 mg (65 mg iron) EC tablet Take 325 mg by mouth once daily. potassium chloride (K-TAB) 10 mEq tablet Take 10 mEq by mouth two times a day. pantoprazole DR (PROTONIX) 40 mg tablet Take 1 tablet by mouth two times a day. biotin 1 mg cap Take 5,000 mg by mouth once daily. cetirizine (ZYRTEC) 10 mg tablet Take 10 mg by mouth once daily. fluticasone (FLONASE) 50 mcg/actuation nasal spray Use 1 [place] in each nostril once daily as needed. LIDOCAINE PAIN RELIEF 4 % patch 1 Patch once daily as needed. FLUoxetine (PROZAC) 40 mg capsule Take 80 mg by mouth once daily. ALPRAZolam (XANAX) 0.5 mg tablet Take 1 tablet by mouth at bedtime as needed. (Patient taking differently: Take 0.5 mg by mouth two times a day as needed.) hydrochlorothiazide 25 mg tablet Take 1 tablet by mouth once daily. metFORMIN 1,000 mg tablet Take 1 tablet by mouth twice daily with meals. methylPREDNISolone (MEDROL DOSE-PACK) 4 mg Dose-Pack magnesium oxide 200 mg magnesium chew Take by mouth. Vitamin L84-Arwvs Acid 0.5-1 mg tab Take by mouth. cholecalciferol, vitamin D3, 10 mcg (400 unit) cap Dose : 10,000 Int unit =, Oral, qDay, 0 Refill(s) gabapentin (NEURONTIN) 100 mg capsule gabapentin 100 mg capsule promethazine (PHENERGAN) 25 mg tablet 25 mg. lisinopril (ZESTRIL) 20 mg tablet lisinopril 20 mg tablet omeprazole (PRILOSEC) 20 mg capsule Take 1 capsule by mouth once daily. REVIEW OF SYSTEMS: GENERAL: No fever, night sweats, weight loss or malaise. All other reviewed and negative other than HPI. PHYSICAL EXAMINATION: VITAL SIGNS: BP 134/83 P (more content not included)... Normal [facility] Ferritin SerPl-mCncon 2024 Ferritin [Mass/Vol] 45.7 ng/mL Normal 14.7-205.1 [facility] [place] Comment on above: Order Comment: Speci men Type: BLOOD SPECIMEN Ordering Facility: [facility] Address: [address] [place] [address] Performed By: #### 5 0190-8, 2276-4, 4542-7 #### [facility] CLIA [id number] [address] [place] [address] [place] [address] [place] Folate SerPl-mCncon 03-11-19 25 Folate [Mass/Vol] 8.8 ng/mL Normal >4.7 [facility] Comment on above: Order Comment: Speci men Type: BLOOD SPECIMEN Ordering Facility: [facility] Address: [address] [place] [address] Performed By: #### L [id number], [id number] #### [facility] CLIA [id number] [address] [place], [place] [id number] [place] Haptoglob SerPl-mCncon 03-11 Haptoglobin [Mass/Vol] 126 mg/dL Normal 31-238 [facility] Comment on above: Order Comment: Speci men Type: BLOOD SPECIMEN Ordering Facility: [facility] Address: [address] [place] [address] Performed By: #### 5 0190-8, 2276-4, 454-7 #### [facility] CLIA [id number] [address] [place] [address] [place] Iron and Iron binding capaci ty panelon 03-11-2024 Iron [Mass/Vol] 47 ug/dL Normal 41-186 [facility] Comment on above: Order Comment: Speci men Type: BLOOD SPECIMEN Ordering Facility: [facility] Address: [address] [place] [address] Performed By: #### 5 0190-8, 6-4, 4541-7 #### [facility] CLIA [id number] [address] [place] [address] [place] Iron binding capacity [Mass/Vol] 335 ug/dL Normal 232-386 [facility] Comment on above: Order Comment: Speci men Type: BLOOD SPECIMEN Ordering Facility: [facility] Address: [address] [place], [place] [address] Performed By: #### 5 0190-8, 6-4, 454-7 #### [facility] CLIA [id number] [address] [place], [place] [address] [place] Iron/TIBC [Molar ratio] 14.0 % Low 15.0-57.0 [facility] Comment on above: Order Comment: Speci men Type: BLOOD SPECIMEN Ordering Facility: [facility] Address: [address] [place] [address] Performed By: #### 5 0190-8, 2276-4, 4542-7 #### [facility] CLIA [id number] [address] [place] [address] [place] [address] [place] No Panel InformationOrdered By: Marine Lim on 03-11-2024 Interpretation and review of laboratory results Normal [facility] No Panel Informationon 03-11 [facility] PT panel Coag (PPP)on 2024 INR Coag (PPP) [Relative time] 1.0 {INR} 0.9 - 1.3 [facility] Comment on above: Vitamin K Antagonist (VKA) Therapeutic Range: INR 2 to 3 (Target INR of 2.5) Note: For patients treated with VKA drugs, such as warfarin, the [employer] 2012 Guideline recommends a therapeutic INR range of 2 to 3 (target INR of 2.5). This recommendation includes high-risk patients with antiphospholipid syndrome with previous arterial or venous thromboembolism, current-generation mechanical or bioprosthetic aortic heart valve replacement. Note: Patients with mechanical aortic valve replacement and additional risk factors for thromboembolic events (atrial fibrillation, previous thromboembolism, LV dysfunction, hypercoagulable conditions) or an older generation mechanical AVR (i.e., ball in-Cage) or any mechanical MVR should have a INR therapeutic range of 2.5 to 3.5 (target INR of 3). Brandee GH, et al. Chest 2012, 141:7S-47S Gato RA, et al. [facility] 2017, 70: 252-289 PT Coag (PPP) [Time] 10.9 s [facility] INR Coag (PPP) [Relative time] 1.0 {INR} Normal 0.9-1.3 [facility] Comment on above: Order Comment: Nicholas diaz Type: BLOOD SPECIMEN Ordering Facility: [facility] Address: [address] [place] [address] Result Comment: Natalie min K Antagonist (VKA) Therapeutic Range: INR 2 to 3 (Target INR of 2.5) Note: For patients treated with VKA drugs, such as warfarin, the [employer] 2012 Guideline recommends a therapeutic INR range of 2 to 3 (target INR of 2.5). This recommendation includes high-risk patients with antiphospholipid syndrome with previous arterial or venous thromboembolism, current-generation mechanical or bioprosthetic aortic heart valve replacement. Note: Patients with mechanical aortic valve replacement and additional risk factors for thromboembolic events (atrial fibrillation, previous thromboembolism, LV dysfunction, hypercoagulable conditions) or an older generation mechanical AVR (i.e., ball in-Cage) or any mechanical MVR should have a INR therapeutic range of 2.5 to 3.5 (target INR of 3). Brandee GH, et al. Chest 2012, 141:7S-47S Gato RA, et al. [facility] 2017, 70: 252-289 Performed By: #### 1 4196-0, 31582-7 #### [id number] [address] [place] [address] [place] PT Coag (PPP) [Time] 10.9 s Normal <13.1 [facility] Comment on above: Order Comment: Nicholas diaz Type: BLOOD SPECIMEN Ordering Facility: [facility] Address: [address] [place] [address] Performed By: #### 1 4196-0, 75763-5 #### [id number] [address] [place] [address] [place] RETICULOCYTE COUNTon 025 Reticulocytes (Bld) [#/Vol] 0.041 10*3/uL [facility] Retics #on 03-11-2024 Reticulocytes (Bld) [#/Vol] 0.63854 10*3/uL Normal 0.018-0.10 0 [facility] Comment on above: Order Comment: Nicholas diaz Type: BLOOD SPECIMEN Ordering Facility: [facility] Address: [address] [place] [address] Performed By: #### 1 4196-0, 14745-6 #### [facility] [id number] [address] [place] [address] [place] Reticulocytes (Bld) [#/Vol]o n 03-11-2024 Interpretation and review of laboratory results Normal [facility] Reticulocytes/100 RBC (Bld) 1.1 % 0.4 - 2.0 % [facility] Reticulocytes/100 RBC (Bld) 1.1 % Normal 0.4-2.0 [facility] Comment on above: Order Comment: Nicholas diaz Type: BLOOD SPECIMEN Ordering Facility: [facility] Address: [address] [place] [address] Performed By: #### 1 4196-0, 39860-3 #### [facility] CLIA [id number] [address] [place] [address] [place] Vit B12 SerPl-mCncon 025 Cobalamin (Vitamin B12) [Mass/Vol] 247 pg/mL Normal 232-1245 [facility] Comment on above: Order Comment: Nicholas diaz Type: BLOOD SPECIMEN Ordering Facility: [facility] Address: [address] [place] [address] Performed By: #### L [id number], [id number] #### [facility] CLIA [id number] [address] [place] [address] [place] aPTT Coag (PPP) [Time]Ordere d By: Marine Lim on 03-11-2024 Unfractionated Hepar in Therapeutic Ranges: Standard Heparin Nomogram: 53 to 78 seconds (anti-Xa level of 0.3 to 0.7 U/ml) Low Dose/ACS Nomogram: 49 to 67 seconds (anti-Xa level of 0.2 to 0.5 U/ml) Stroke Treatment Nomogram: 49 to 67 seconds (anti-Xa level of 0.2 to 0.5 U/ml) Note: The APTT therapeutic range has been determined for the current lot of laboratory APTT reagent in use throughout the [facility]. [facility] aPTT PPPon 03-11-2024 aPTT Coag (PPP) [Time] 26.2 s Normal 23.0-32.4 [facility] Comment on above: Order Comment: Speci men Type: BLOOD SPECIMEN Ordering Facility: [facility] Address: [address] [place] [address] Performed By: #### 1 4196-0, 48529-7 #### [facility] CLIA [id number] [address] [place] [id number] [place] 02-29-2024 Potassium [Moles/Vol] 3.8 mmol/L Normal 3.5-5.1 [facility] Comment on above: Performed By: #### K ####[facility] [place] [address] LABORATORYOrdered By: SYSTEM SYSTEM on 02-29-2024 Potassium [Moles/Vol] 3.8 mmol/L Normal 3.5 - 5.1 mmol/L AO ADM SS Plastic Surgery Visit Report on 02-25-2024 Plastic Surgery Visit Report [facility] Plastic Reconstructive Surgery [address], [address] [place] [address] OFFICE VISIT Date of Service: 02/25/24 MR#: [id number] Acct: [id number] Name: BELLE HAMM Rep #: [id number] : 1970 Provider: Dr. Teresa vu MD Age/Sex: 53/F Location: [facility] Status: Signed Intake Vital Signs 02/19/24 10:32 02/25/24 09:32 Height 5 ft 2 in 5 ft 2 in BP 125/78 H 126/79 H Blood Pressure Location Lt brachial Lt brachial Position Sitting Sitting Respiration 18 18 Pulse 50 L 56 L Temp 98.1 F 98.0 F Temp Source Oral Oral Pulse Oximetry (%) 97 96 Oxygen Delivery Method room air room air Intake Visit Reasons: 1 W FU Chief Complaint: post valdez breast reduction Is patient in pain?: No Allergies codeine (From Tylenol-Codeine) Allergy (Verified 02/25/24 09:35) Rash hydrocodone (From Vicodin) Allergy (Verified 02/25/24 09:35) Rash Sulfa (Sulfonamide Antibiotics) Allergy (Verified 02/25/24 09:35) Rash NSAIDS (Non-Steroidal Anti-Inflamma Adverse Reaction (Verified 02/25/24 09:35) Other Medications ???Medication ???Instructions ???Recorded ???Confirmed ???Type alprazolam 0.25 mg tablet (Xanax) 0.5 mg PO PRN PRN Anxiety 06/08/21 02/25/24 History fluoxetine 40 mg capsule (Prozac) 80 mg PO DAILY 06/08/21 02/25/24 History gabapentin 100 mg tablet 300 mg PO TID 06/08/21 02/25/24 History hydrochlorothiazide 25 mg tablet 25 mg PO DAILY 06/08/21 02/25/24 History lisinopril 20 mg tablet 20 mg PO DAILY 06/08/21 02/25/24 History metformin 1,000 mg tablet 1,000 mg PO BID 06/08/21 02/25/24 History cetirizine 10 mg tablet 10 mg PO DAILY 01/23/23 02/25/24 History pantoprazole 20 mg tablet,delayed 20 mg PO BID 07/26/23 02/25/24 History release ondansetron 4 mg disintegrating 4 mg PO Q8H PRN nausea and 10/11/23 02/25/24 Rx tablet vomiting #90 tabs amitriptyline 25 mg tablet 25 mg PO QHS #30 TABLETS 11/30/23 02/25/24 Rx buspirone 5 mg tablet 5 mg PO TID 12/19/23 02/25/24 History diltiazem HCl 30 mg tablet 30 mg PO QHS #30 TABLETS 12/31/23 02/25/24 Rx biotin 2,500 mcg capsule 5 mg PO DAILY 01/04/24 02/25/24 History mupirocin 2 % topical ointment 1 applic topical QDAY #15 grams 02/19/24 02/25/24 Rx Nurse's Note: pt here for post op valdez breast reduction,concerned with healing on right side Subjective Details: Belle comes in for recheck of the bilateral breast reduction. She denies any problems. She has obtained the correct gauze and has noticed a little bloody drainage on the gauze when she takes it off. Objective Details: Incisions are well-approximated except for a shallow open area at the base of both breasts. These are granulating appropriately. There is no other evidence of infection or wound healing issues. She is to continue using the mupirocin once a day on the incisions along with dry gauze. The remainder of the limitations were reviewed with her including maintaining an elevated position when sleeping and keeping the bras on continuously. I will see her back in 2 weeks for recheck and she is encouraged to call with any problems. Coding Level of Care Code Global Post Op Diagnoses Status post breast reduction Z98.890 [facility] Medical History History of hiatal hernia Sleep apnea Wears glasses Anxiety Diabetes Restless legs Dietary restriction Gastric reflux Former smoker CPAP (continuous positive airway pressure) dependence Neuropathy History of echocardiogram History of stress test Hypertension Encounter for screening for malignant neoplasm of colon Surgical History History of esophagogastroduodenoscopy (EGD) Bariatric surgery status Hx of colonoscopy History of esophagogastroduodenoscopy (EGD) Hx of hernia repair History of tonsillectomy and adenoidectomy Hx of foot surgery Hx of total hysterectomy Hx of gastric bypass Hx laparoscopic cholecystectomy Family History Brother Diabetes Heart disease Social History Smoking Status: Former smoker how long ago did patient quit smoking: quit 2012 alcohol intake: never substance use type: does not use additional social history: denies vaping, denies marijuana use, denies edible, denies aspirin use denies ibuprofen Assessment and Plan (No Qualifiers) Assessment and Plan (1) Status post breast reduction: Status: Acute Plan Details Additional Comments: She is to follow-up in 2 weeks. 02/25/24 1423 Date Teresa Ramsey MD Cosigner Signature: Date (more content not included)... [facility] .Auto Diffon 02-22-2024 Basophil, Absolute 0.0 10 3/mcL Normal 0.0-0.2 [facility] Comment on above: Performed By: #### B MP, ANEU, GFR, CBC, ADIFF ####[facility] [address] [place], [place] [address] Basophils/100 WBC (Bld) 0.3 % Normal 0.0-2.5 [facility] Comment on above: Performed By: #### B MP, ANEU, GFR, CBC, ADIFF ####[facility] [address] [place], [place] [address] Eosinophil, Absolute 0.0 10 3/mcL Normal 0.0-0.7 [facility] Comment on above: Performed By: #### B MP, ANEU, GFR, CBC, ADIFF ####[facility] [address] [place], [place] [address] Eosinophils/100 WBC (Bld) 0.9 % Normal 0.0-7.0 [facility] Comment on above: Performed By: #### B MP, ANEU, GFR, CBC, ADIFF ####[facility] [address] [place], [place] [address] Lymphocyte, Absolute 1.6 10 3/mcL Normal 0.9-4.3 [facility] Comment on above: Performed By: #### B MP, ANEU, GFR, CBC, ADIFF ####[facility] [address] [place], [place] [address] Lymphocytes/100 WBC (Bld) 32.4 % Normal 20.0-40.0 [facility] Comment on above: Performed By: #### B MP, ANEU, GFR, CBC, ADIFF ####[facility] [address] [place], [place] [address] Monocyte, Absolute 0.4 10 3/mcL Normal 0.1-1.4 [facility] Comment on above: Performed By: #### B MP, ANEU, GFR, CBC, ADIFF ####[facility] [address] [place], [place] [address] Monocytes/100 WBC (Bld) 7.5 % Normal 2.0-13.0 [facility] Comment on above: Performed By: #### B MP, ANEU, GFR, CBC, ADIFF ####[facility] [address] [place], [place] [address] Neutrophils/100 WBC (Bld) 58.9 % Normal 50.0-75.0 [facility] Comment on above: Performed By: #### B MP, ANEU, GFR, CBC, ADIFF ####[facility] [address] [place], [place] [address] .GFRon 02-22-2024 GFR 75 ml/min/1.73sqm Normal [facility] Comment on above: Result Comment: GFR Population mean for , Non- Americans Ages 20-29 = 116 mL/min/1.73 sq.m. Ages 30-39 = 107 mL/min/1.73 sq.m. Ages 40-49 = 99 mL/min/1.73 sq.m. Ages 50-59 = 93 mL/min/1.73 sq.m. Ages 60-69 = 85 mL/min/1.73 sq.m. Ages 70+ = 75 mL/min/1.73 sq.m. Chronic Kidney Disease: Less than 60 mL/min/1.73 square meters End Stage Renal Disease: Less than 15 mL/min/1.73 square meters Performed By: #### B MP, ANEU, GFR, CBC, ADIFF ####[facility] [address] [place], [place] [address] GFR Non- 62 ml/min/1.73sqm Normal [facility] Comment on above: Result Comment: GFR Population mean for , Non- Americans Ages 20-29 = 116 mL/min/1.73 sq.m. Ages 30-39 = 107 mL/min/1.73 sq.m. Ages 40-49 = 99 mL/min/1.73 sq.m. Ages 50-59 = 93 mL/min/1.73 sq.m. Ages 60-69 = 85 mL/min/1.73 sq.m. Ages 70+ = 75 mL/min/1.73 sq.m. Chronic Kidney Disease: Less than 60 mL/min/1.73 square meters End Stage Renal Disease: Less than 15 mL/min/1.73 square meters Performed By: #### B MP, ANEU, GFR, CBC, ADIFF ####[facility] [address] [place], [place] [address] .NEUABSon 02-22-2024 Neutrophil, Absolute 2.9 10 3/mcL Normal 2.3-8.1 [facility] Comment on above: Performed By: #### B MP, ANEU, GFR, CBC, ADIFF ####[facility] [address] [place], [place] [address] BMPon 02-22-2024 BUN/Creatinine Ratio 9 ratio Normal 7-27 [facility] Comment on above: Performed By: #### B MP, ANEU, GFR, CBC, ADIFF ####[facility] [address] [place], [place] [address] Calcium [Mass/Vol] 8.9 mg/dL Normal 8.4-10.2 [facility] Comment on above: Performed By: #### B MP, ANEU, GFR, CBC, ADIFF ####[facility] [address] [place], [place] [address] Chloride [Moles/Vol] 101 mmol/L Normal 98-107 [facility] Comment on above: Performed By: #### B MP, ANEU, GFR, CBC, ADIFF ####[address] [address] CO2 [Moles/Vol] 29 mmol/L Normal 22-29 [facility] Comment on above: Performed By: #### B MP, ANEU, GFR, CBC, ADIFF ####[facility] [address] [place], [place] [address] Creatinine [Mass/Vol] 0.95 mg/dL Normal 0.55-1.02 [facility] Comment on above: Result Comment: Test ing performed on [employer] Dimension EXL analyzer using a modified kinetic Dot technique. Performed By: #### B MP, ANEU, GFR, CBC, ADIFF ####[facility] [address] [place], [place] [address] Electrolyte Balance 10.0 mEq/L Normal 4.0-15.0 [facility] Comment on above: Performed By: #### B MP, ANEU, GFR, CBC, ADIFF ####[address] [place], [place] [address] Glucose [Mass/Vol] 135 mg/dL High 70-105 [facility] Comment on above: Performed By: #### B MP, ANEU, GFR, CBC, ADIFF ####[address] [place], [place] [address] Potassium [Moles/Vol] 2.8 mmol/L Low 3.5-5.1 [facility] Comment on above: Performed By: #### B MP, ANEU, GFR, CBC, ADIFF ####[facility] [address] [place], [place] [address] Sodium [Moles/Vol] 140 mmol/L Normal 136-145 [facility] Comment on above: Performed By: #### B MP, ANEU, GFR, CBC, ADIFF ####[address] [address] Urea nitrogen [Mass/Vol] 9 mg/dL Normal 7-18 [facility] Comment on above: Performed By: #### B MP, ANEU, GFR, CBC, ADIFF ####[facility] [place], [place] [address] CBCon 02-22-2024 Erythrocyte distribution width (RBC) [Ratio] 14.1 % Normal 11.5-15.5 [facility] Comment on above: Performed By: #### B MP, ANEU, GFR, CBC, ADIFF ####[address] [place], [place] [address] Hematocrit (Bld) [Volume fraction] 33.5 % Low 34.0-46.0 [facility] Comment on above: Performed By: #### B MP, ANEU, GFR, CBC, ADIFF ####[address] [place], [place] [address] Hgb 11.2 G/dL Low 12.0-16.0 [facility] Comment on above: Performed By: #### B MP, ANEU, GFR, CBC, ADIFF ####[facility] [address] [place], [place] [address] MCH (RBC) [Entitic mass] 30.4 pg Normal 27.0-33.0 [facility] Comment on above: Performed By: #### B MP, ANEU, GFR, CBC, ADIFF ####[address] [place] [address] MCHC 33.4 G/dL Normal 32.0-36.0 [facility] Comment on above: Performed By: #### B MP, ANEU, GFR, CBC, ADIFF ####Fani [place] [place] [address] MCV (RBC) [Entitic vol] 90.9 fL Normal 80.0-99.0 [facility] Comment on above: Performed By: #### B MP, ANEU, GFR, CBC, ADIFF ####[place] [address] Platelet 174 10 3/mcL Normal 150-450 [facility] Comment on above: Performed By: #### B MP, ANEU, GFR, CBC, ADIFF ####Fani [address] [place] [address] Platelet mean volume (Bld) [Entitic vol] 10.0 fL Normal 6.6-10.5 [facility] Comment on above: Performed By: #### B MP, ANEU, GFR, CBC, ADIFF ####Fani [address] [place] [address] RBC 3.69 10 6/mcL Low 4.10-5.30 [facility] Comment on above: Performed By: #### B MP, ANEU, GFR, CBC, ADIFF ####Fani [address] [place] [address] WBC 5.0 10 3/mcL Normal 4.5-10.8 [facility] Comment on above: Performed By: #### B MP, ANEU, GFR, CBC, ADIFF ####[address] [place] [place] [address] LABORATORYOrdered By: SYSTEM SYSTEM on 02-22-2024 Basophils (Bld) [#/Vol] 0.0 103/mcL Normal 0.0 - 0.2 10^3/mcL AO Workflow SS Basophils/100 WBC (Bld) 0.3 % Normal 0.0 - 2.5 % AO Workflow SS Calcium [Mass/Vol] 8.9 mg/dL Normal 8.4 - 10. 2 mg/dL AO ADM SS Chloride [Moles/Vol] 101 mmol/L Normal 98 - 107 mmol/L AO ADM SS CO2 [Moles/Vol] 29 mmol/L Normal 22 - 29 mmol/L AO ADM SS Creatinine [Mass/Vol] 0.95 mg/dL Normal 0.55 - 1.02 mg/dL AO ADM SS Comment on above: Interpretive Data: T esting performed on [employer] Dimension EXL analyzer using a modified kinetic Dot technique. Electrolyte Balance 10.0 mEq/L Normal 4.0 - 15 .0 mEq/L AO ADM SS Eosinophil, Absolute 0.0 103/mcL Normal 0.0 - 0.7 10^3/mcL AO Workflow SS Eosinophils/100 WBC (Bld) 0.9 % Normal 0.0 - 7.0 % AO Workflow SS Erythrocyte distribution width (RBC) [Ratio] 14.1 % Normal 11.5 - 15.5 % AO Workflow SS GFR/1.73 sq M.predicted among blacks MDRD (S/P/Bld) [Vol rate/Area] 75 ml/min/1.73sqm Invalid Interpretation Code AO Chemistry S Comment on above: Interpretive Data: GFR Population mean for , Non- Americans Ages 20-29 = 116 mL/min/1.73 sq.m. Ages 30-39 = 107 mL/min/1.73 sq.m. Ages 40-49 = 99 mL/min/1.73 sq.m. Ages 50-59 = 93 mL/min/1.73 sq.m. Ages 60-69 = 85 mL/min/1.73 sq.m. Ages 70+ = 75 mL/min/1.73 sq.m. Chronic Kidney Disease: Less than 60 mL/min/1.73 square meters End Stage Renal Disease: Less than 15 mL/min/1.73 square meters GFR/1.73 sq M.predicted among non-blacks MDRD (S/P/Bld) [Vol rate/Area] 62 ml/min/1.73sqm Invalid Interpretation Code AO Chemistry S Comment on above: Interpretive Data: GFR Population mean for , Non- Americans Ages 20-29 = 116 mL/min/1.73 sq.m. Ages 30-39 = 107 mL/min/1.73 sq.m. Ages 40-49 = 99 mL/min/1.73 sq.m. Ages 50-59 = 93 mL/min/1.73 sq.m. Ages 60-69 = 85 mL/min/1.73 sq.m. Ages 70+ = 75 mL/min/1.73 sq.m. Chronic Kidney Disease: Less than 60 mL/min/1.73 square meters End Stage Renal Disease: Less than 15 mL/min/1.73 square meters Glucose [Mass/Vol] 135 mg/dL High 70 - 105 mg/dL AO ADM SS Hematocrit (Bld) [Volume fraction] 33.5 % Low 34.0 - 46.0 % AO Workflow SS Hemoglobin (Bld) [Mass/Vol] 11.2 G/dL Low 12.0 - 16.0 G/dL AO Workflow SS Lymphocytes (Bld) [#/Vol] 1.6 103/mcL Normal 0.9 - 4.3 10^3/mcL AO Workflow SS Lymphocytes/100 WBC (Bld) 32.4 % Normal 20.0 - 40.0 % AO Workflow SS MCH (RBC) [Entitic mass] 30.4 pg Normal 27.0 - 33.0 pg AO Workflow SS MCHC 33.4 G/dL Normal 32.0 - 36.0 G/dL AO Workflow SS MCV (RBC) [Entitic vol] 90.9 fL Normal 80.0 - 99.0 fL AO Workflow SS Monocytes (Bld) [#/Vol] 0.4 103/mcL Normal 0.1 - 1.4 10^3/mcL AO Workflow SS Monocytes/100 WBC (Bld) 7.5 % Normal 2.0 - 13.0 % AO Workflow SS Neutrophils (Bld) [#/Vol] 2.9 103/mcL Normal 2.3 - 8.1 10^3/mcL AO Workflow SS Neutrophils/100 WBC (Bld) 58.9 % Normal 50.0 - 75.0 % AO Workflow SS Platelet mean volume (Bld) [Entitic vol] 10.0 fL Normal 6.6 - 10.5 fL AO Workflow SS Platelets (Bld) [#/Vol] 174 103/mcL Normal 150 - 450 10^3/mcL AO Workflow SS Potassium [Moles/Vol] 2.8 mmol/L Low 3.5 - 5.1 mmol/L AO ADM SS RBC (Bld) [#/Vol] 3.69 106/mcL Low 4.10 - 5.30 10^6/mcL AO Workflow SS Sodium [Moles/Vol] 140 mmol/L Normal 136 - 145 mmol/L AO ADM SS Urea nitrogen [Mass/Vol] 9 mg/dL Normal 7 - 18 mg/dL AO ADM SS Urea nitrogen/Creatinine [Mass ratio] 9 ratio Normal 7 - 27 ratio AO ADM SS WBC (Bld) [#/Vol] 5.0 103/mcL Normal 4.5 - 10.8 10^3/mcL AO Workflow SS Gastric Emptying Studyon Gastric Emptying Study [facility] Imaging Services [address] [place] [address] Gastric Emptying Study MR#: [id number] Acct: [id number] Name: BELLE HAMM Rep #: [id number] : 1970 F 53 From: Abiodun Norris MD PCP: Dr. Berenice Bowling, DO Status: REG CLI Study: Gastric Emptying Study Date of Exam: 02/20/24 Exam# [id number] Ordering Dr: Staci Yip -[id number] NAME: Belle Hamm PROCEDURE: NM Gastric Emptying Study (solid, liquid or both) ACCESSION NUMBER: [id number] CLINICAL HISTORY: nausea INDICATION: Nausea COMPARISON: None. TECHNIQUE: A nuclear medicine Gastric Emptying Scan was obtained following oral administration of 1.1 mCi of sulfur colloid contained in oatmeal. Axial images in the anterior and posterior projections were obtained at 60 minutes, 120 minutes and 240 minutes. The percentage of gastric emptying at each time frame was calculated. FINDINGS: There is radiopharmaceutical uptake seen in the stomach with small bowel activity seen within 60 minutes. Uptake calculated as follows: 60 minutes = 17 % (normal = 30-90 %) NM/Gastric Emptying Study IMPRESSION: Rapid gastric emptying Electronically Signed: Abiodun Norris MD at 13:43 EST , CC: Dr. Berenice Bowling DO; MIKE Jang Supervisor Cutting And Boning: Signed Normal [facility] Plastic Surgery Visit Report on 02-19-2024 Plastic Surgery Visit Report [facility] Plastic Reconstructive Surgery [address], [address] [place] [address] OFFICE VISIT Date of Service: 02/19/24 MR#: [id number] Acct: [id number] Name: BELLE HAMM Rep #: [id number] : 1970 Provider: Dr. Teresa vu MD Age/Sex: 53/F Location: [facility] Status: Signed Intake Vital Signs 02/05/24 13:30 02/19/24 10:32 Height 5 ft 2 in 5 ft 2 in BP 114/76 125/78 H Blood Pressure Location Lt brachial Lt brachial Position Sitting Sitting Respiration 16 18 Pulse 64 50 L Temp 97.7 F L 98.1 F Temp Source Oral Oral Pulse Oximetry (%) 97 97 Oxygen Delivery Method room air room air Intake Visit Reasons: 2 W F/U Chief Complaint: post valdez breast reduction Is patient in pain?: No Allergies codeine (From Tylenol-Codeine) Allergy (Verified 02/19/24 10:33) Rash hydrocodone (From Vicodin) Allergy (Verified 02/19/24 10:33) Rash Sulfa (Sulfonamide Antibiotics) Allergy (Verified 02/19/24 10:33) Rash NSAIDS (Non-Steroidal Anti-Inflamma Adverse Reaction (Verified 02/19/24 10:33) Other Medications ???Medication ???Instructions ???Recorded ???Confirmed ???Type alprazolam 0.25 mg tablet (Xanax) 0.5 mg PO PRN PRN Anxiety 06/08/21 02/05/24 History fluoxetine 40 mg capsule (Prozac) 80 mg PO DAILY 06/08/21 02/05/24 History gabapentin 100 mg tablet 300 mg PO TID 06/08/21 02/05/24 History hydrochlorothiazide 25 mg tablet 25 mg PO DAILY 06/08/21 02/05/24 History lisinopril 20 mg tablet 20 mg PO DAILY 06/08/21 02/05/24 History metformin 1,000 mg tablet 1,000 mg PO BID 06/08/21 02/05/24 History cetirizine 10 mg tablet 10 mg PO DAILY 01/23/23 02/05/24 History pantoprazole 20 mg tablet,delayed 20 mg PO BID 07/26/23 02/05/24 History release ondansetron 4 mg disintegrating 4 mg PO Q8H PRN nausea and 10/11/23 02/05/24 Rx tablet vomiting #90 tabs amitriptyline 25 mg tablet 25 mg PO QHS #30 TABLETS 11/30/23 02/05/24 Rx buspirone 5 mg tablet 5 mg PO TID 12/19/23 02/05/24 History diltiazem HCl 30 mg tablet 30 mg PO QHS #30 TABLETS 12/31/23 02/05/24 Rx biotin 2,500 mcg capsule 5 mg PO DAILY 01/04/24 02/05/24 History mupirocin 2 % topical ointment 1 applic topical QDAY #15 grams 02/19/24 02/19/24 Rx Nurse's Note: pt here post op valdez breast reduction, no issues Subjective Details: Belle comes in for recheck of the breast reduction. She denies any problems. Objective Details: The patient is noted to have a Topper type sponge on the sites and I have demonstrated to her to use a type VII gauze because of the small fibers that get in the wound with a Topper. On exam, she has a small open area at the base of the breast bilaterally. On the left areola, there are 2 adherent scabs and a small area of erythema on the lateral aspect of the areola. The wounds were debrided. Antibiotic ointment was applied along with dry gauze. I will call her in a prescription for mupirocin ointment to use on the sites once a day. Coding Level of Care Code Global Post Op Diagnoses Status post breast reduction Z98.890 [facility] Medical History History of hiatal hernia Sleep apnea Wears glasses Anxiety Diabetes Restless legs Dietary restriction Gastric reflux Former smoker CPAP (continuous positive airway pressure) dependence Neuropathy History of echocardiogram History of stress test Hypertension Encounter for screening for malignant neoplasm of colon Surgical History History of esophagogastroduodenoscopy (EGD) Bariatric surgery status Hx of colonoscopy History of esophagogastroduodenoscopy (EGD) Hx of hernia repair History of tonsillectomy and adenoidectomy Hx of foot surgery Hx of total hysterectomy Hx of gastric bypass Hx laparoscopic cholecystectomy Family History Brother Diabetes Heart disease Social History Smoking Status: Former smoker how long ago did patient quit smoking: quit 2012 alcohol intake: never substance use type: does not use additional social history: denies vaping, denies marijuana use, denies edible, denies aspirin use denies ibuprofen Assessment and Plan (No Qualifiers) Assessment and Plan (1) Status post breast reduction: Status: Acute Plan Details Additional Comments: She is to follow-up in 1 week. 02/19/24 1638 Date Teresa Ramsey MD [facility] Signature: Date (if applicable) CC: Normal [facility] Plastic Surgery Visit Report on 02-05-2024 Plastic Surgery Visit Report [facility] Plastic Reconstructive Surgery [address], [address] [place] [address] OFFICE VISIT Date of Service: 02/05/24 MR#: [id number] Acct: [id number] Name: BELLE HAMM Rep #: [id number] : 1970 Provider: Dr. Teresa vu MD Age/Sex: 53/F Location: [facility] Status: Signed Intake Vital Signs 01/29/24 12:53 02/05/24 13:30 Height 5 ft 2 in 5 ft 2 in BP 98/64 114/76 Blood Pressure Location Lt brachial Lt brachial Position Sitting Sitting Respiration 18 16 Pulse 68 64 Temp 97.7 F L 97.7 F L Temp Source Oral Oral Pulse Oximetry (%) 96 97 Oxygen Delivery Method room air room air Intake Visit Reasons: 1 W F/U Chief Complaint: post valdez breast reduction Is patient in pain?: Yes (03/14) Allergies codeine (From Tylenol-Codeine) Allergy (Verified 01/29/24 12:54) Rash hydrocodone (From Vicodin) Allergy (Verified 01/29/24 12:54) Rash Sulfa (Sulfonamide Antibiotics) Allergy (Verified 01/29/24 12:54) Rash NSAIDS (Non-Steroidal Anti-Inflamma Adverse Reaction (Verified 01/29/24 12:54) Other Medications ???Medication ???Instructions ???Recorded ???Confirmed ???Type alprazolam 0.25 mg tablet (Xanax) 0.5 mg PO PRN PRN Anxiety 06/08/21 02/05/24 History fluoxetine 40 mg capsule (Prozac) 80 mg PO DAILY 06/08/21 02/05/24 History gabapentin 100 mg tablet 300 mg PO TID 06/08/21 02/05/24 History hydrochlorothiazide 25 mg tablet 25 mg PO DAILY 06/08/21 02/05/24 History lisinopril 20 mg tablet 20 mg PO DAILY 06/08/21 02/05/24 History metformin 1,000 mg tablet 1,000 mg PO BID 06/08/21 02/05/24 History cetirizine 10 mg tablet 10 mg PO DAILY 01/23/23 02/05/24 History pantoprazole 20 mg tablet,delayed 20 mg PO BID 07/26/23 02/05/24 History release ondansetron 4 mg disintegrating 4 mg PO Q8H PRN nausea and 10/11/23 02/05/24 Rx tablet vomiting #90 tabs amitriptyline 25 mg tablet 25 mg PO QHS #30 TABLETS 11/30/23 02/05/24 Rx buspirone 5 mg tablet 5 mg PO TID 12/19/23 02/05/24 History diltiazem HCl 30 mg tablet 30 mg PO QHS #30 TABLETS 12/31/23 02/05/24 Rx biotin 2,500 mcg capsule 5 mg PO DAILY 01/04/24 02/05/24 History cephalexin 500 mg capsule 500 mg PO BID #14 caps 01/29/24 02/05/24 Rx Nurse's Note: pt here for post op valdez breast reduction, Subjective Details: Belle comes in for recheck of the breast reduction done approximately 2-1/2 weeks ago. She denies any problems. Objective Details: Incisions are well-approximated. There is no evidence of infection. She has a Telfa over the incisions and I have asked her to use plain gauze instead. I have emphasized the need to continue restricting physical activity and sleep elevated in a recliner. I will see her back in 2 weeks for recheck. She is encouraged to call in the interim with any problems or questions. Coding Level of Care Code Global Post Op Diagnoses Status post breast reduction Z98.890 [facility] Medical History History of hiatal hernia Sleep apnea Wears glasses Anxiety Diabetes Restless legs Dietary restriction Gastric reflux Former smoker CPAP (continuous positive airway pressure) dependence Neuropathy History of echocardiogram History of stress test Hypertension Encounter for screening for malignant neoplasm of colon Surgical History History of esophagogastroduodenoscopy (EGD) Bariatric surgery status Hx of colonoscopy History of esophagogastroduodenoscopy (EGD) Hx of hernia repair History of tonsillectomy and adenoidectomy Hx of foot surgery Hx of total hysterectomy Hx of gastric bypass Hx laparoscopic cholecystectomy Family History Brother Diabetes Heart disease Social History Smoking Status: Former smoker how long ago did patient quit smoking: quit 2012 alcohol intake: never substance use type: does not use additional social history: denies vaping, denies marijuana use, denies edible, denies aspirin use denies ibuprofen Assessment and Plan (No Qualifiers) Assessment and Plan (1) Status post breast reduction: Status: Acute Plan Details Additional Comments: Follow-up in 2 weeks 02/05/24 3499 Date Teresa Ramsey MD Cosigner Signature: Date (if applicable) CC: Normal [facility] BACTERIAL VAGINOSIS NAATon 1 03-30-2023 Lactobacillus crispatus+gasseri+j ensenii + Gardnerella vaginalis + Atopobium vaginae rRNA CJ+probe Ql (Vag fld) Not detected Normal Not detected [facility] Comment on above: Order Comment: Speci men Type: BLOOD SPECIMEN Ordering Facility: [facility] Address: [address] [place] [address] Performed By: #### L [id number], [id number] #### [facility] CLIA [id number] [address] [place] [address] [place] [address] [place] Bacteria Ur Culton 4 Bacteria identified Cx Nom (U) CULTURE, URINE: Mixed microbiota, including predominantly: ORGANISM ID: 1 >=100,000 CFU/ml Klebsiella pneumoniae ORGANISM ID: 1 (KLEBSIELLA PNEUMONIAE) ANTIBIOTIC INTERPRETATION GARRETT STATUS REFERENCE RANGE Ampicillin R F Cefazolin S <=4 F Susceptible 0-16 , Intermediate <0 or >16 , Resistant >16 For uncomplicated urinary tract infections, cefazolin results can be used to predict susceptibility or resistance to cephalexin. Ceftriaxone S <=1 F Susceptible <=1 , Intermediate >1 , Resistant >=4 Cefepime S <=1 F Susceptible <=2 , Susceptible-Dose Dependent >2 , Resistant >=16 Ertapenem S <=0.5 F Susceptible <=0.5 , Intermediate >.5 , Resistant >1 Meropenem S <=0.25 F Susceptible <=1 , Intermediate >1 , Resistant >2 Ampicillin/Sulbact S 4 F Susceptible <=8 , Intermediate >8 , Resistant >16 Piperacillin/Tazobac S <=4 F Susceptible <16 , Susceptible-Dose Dependent >=16 , Resistant >=32 Gentamicin S <=1 F Susceptible <=2 , Intermediate >2 , Resistant >=8 Tobramycin S <=1 F Susceptible <4 , Intermediate >=4 , Resistant >=8 Trimeth sulfameth S <=20 F Susceptible <=40 , Resistant >40 Ciprofloxacin S <=0.25 F Susceptible <0.5 , Intermediate >=.5 , Resistant >=1 Nitrofurantoin S 32 F Susceptible <=32 , Intermediate >32 , Resistant >64 Abnormal [facility] Comment on above: Performed By: #### 1 [id number], [id number] #### [facility] CLIA [id number] [address] [place] [address] [place] RICARDO/TRICHOMONAS NAATon 1 03-30-2023 C. glabrata RNA CJ+probe Ql (Vag fld) Not detected Normal Not detected [facility] Comment on above: Order Comment: Speci men Type: BLOOD SPECIMEN Ordering Facility: [facility] Address: [address] [place] [address] Performed By: #### L [id number], [id number] #### [facility] CLIA [id number] [address] [place] [address] [place] Ricardo sp DNA CJ+probe Ql (Vag fld) Detected Abnormal Not detected [facility] Comment on above: Order Comment: Speci men Type: BLOOD SPECIMEN Ordering Facility: [facility] Address: [address] [place] [address] Result Comment: The Ricardo species group target includes C. albicans, C. tropicalis, C. parapsilosis, and C. dubliniensis. Performed By: #### L [id number], [id number] #### [facility] CLIA [id number] [address] [place] [address] [place] T. vaginalis DNA CJ+probe Ql (Unsp spec) Not detected Normal Not detected [facility] Comment on above: Order Comment: Speci men Type: BLOOD SPECIMEN Ordering Facility: [facility] Address: [address] [place] [address] Performed By: #### L [id number], [id number] #### [facility] CLIA [id number] [address] [place] [address] [place] CNOVon 01-29-2024 CNOV Office Visit ([facility] ) BELLE SMITH ([id number]) 1970 F Date Time Provider Department 01/29/24 12:00 PM MIMA HOLDER [facility] During your visit today, we recorded the following information about you: Temperature Pulse Respiration Blood pressure 97.6 degrees 69/minute 18/minute 101/62 Weight 98.4 kg Mima Holder PA 01/29/2024 12:23 PM Signed This note was created using NoteWriter. Subjective Belle Smith is a 53 year old female. HPI 53-year-old female presents for dysuria, bladder pressure starting this morning. Patient states she got up this morning and felt an urge to urinate. She states that she had some burning with urination and some bladder pressure after urinating. She did not notice any blood in the urine. No abdominal pain or back pain. No fevers or vomiting. She did have a breast augmentation surgery last week and had a catheter in at that time. She states that she was on antibiotics postsurgery as well, but his finish those. She is concerned she may have a UTI or yeast infection. She does get yeast infections frequently especially after antibiotics. She denies any vaginal discharge, but does report a little bit of itching. No rash present. No other complaint. PAST MEDICAL HISTORY Diagnosis Date Anxiety Back pain, lumbosacral DJD Cervical back pain with evidence of disc disease 2 BULGING DISC Diabetic acidosis, type II (HCC) GERD (gastroesophageal reflux disease) Hidradenitis suppurativa Hypertension Hyponatremia Incarcerated hernia Kidney stones Sleep apnea Vitamin D deficiency PAST SURGICAL HISTORY Procedure Laterality Date COLONOSCOPY W/BIOPSY SINGLE/MULTIPLE 09/04/2012 EGD TRANSORAL BIOPSY SINGLE/MULTIPLE 09/04/2012 FOOT/TOES SURGERY PROC UNLISTED 03/05/2001 CARTILAGE REMOVED LEFT FOOT GASTRIC BYPASS HX HYSTERECTOMY HX LAPAROSCOPY SURG CHOLECYSTECTOMY 02/06/2012 NEPHROLITHOTOMY REMOVAL STAGE 1 07/13 AND 01/06 REPAIR FIRST ABDOMINAL WALL HERNIA 02/06/2012 ALLERGIES Codeine, Hydrocodone, Naproxen, Sulfa (Sulfonamide Antibiotics), Tramadol, and Vicodin [Hydrocodone-Acetaminophen] MEDICATIONS nitrofurantoin monohydrate and macrocrystal (MACROBID) 100 mg capsule Take 1 capsule by mouth two times a day for 5 days. fluconazole (DIFLUCAN) 150 mg tablet Take 1 tablet by mouth one time only for 1 dose. Repeat in 3 days as needed. methylPREDNISolone (MEDROL DOSE-PACK) 4 mg Dose-Pack biotin 1 mg cap 5 mg. magnesium oxide 200 mg magnesium chew Take by mouth. Vitamin M90-Pbcay Acid 0.5-1 mg tab Take by mouth. cholecalciferol, vitamin D3, 10 mcg (400 unit) cap Dose : 10,000 Int unit =, Oral, qDay, 0 Refill(s) cetirizine (ZYRTEC) 10 mg tablet cetirizine 10 mg tablet fluticasone (FLONASE) 50 mcg/actuation nasal spray fluticasone propionate 50 mcg/actuation nasal spray,suspension gabapentin (NEURONTIN) 100 mg capsule gabapentin 100 mg capsule LIDOCAINE PAIN RELIEF 4 % patch promethazine (PHENERGAN) 25 mg tablet 25 mg. FLUoxetine (PROZAC) 40 mg capsule 80 mg. lisinopril (ZESTRIL) 20 mg tablet lisinopril 20 mg tablet omeprazole (PRILOSEC) 20 mg capsule Take 1 capsule by mouth once daily. ALPRAZolam (XANAX) 0.5 mg tablet Take 1 tablet by mouth at bedtime as needed. hydrochlorothiazide 25 mg tablet Take 1 tablet by mouth once daily. metFORMIN 1,000 mg tablet Take 1 tablet by mouth twice daily with meals. FAMILY HISTORY Problem Relation Age of Onset Diabetes Mother Hypertension Mother other (CHROHN [Other]) Mother other (CHF [Other]) Mother Coronary Artery Disease Brother TRIPLE BYPASS other (CHF [Other]) Father Diabetes Brother Social History Tobacco Use Smoking status: Former Current packs/day: 0.50 Average packs/day: 0.5 packs/day for 22.0 years (11.0 ttl pk-yrs) Types: Cigarettes Vaping Use Vaping status: Never Used Substance Use Topics Alcohol use: Yes Comment: SOCIALLY Drug use: No Review of Systems Constitutional: Negative for chills and fever. HENT: Negative for congestion, ear pain and sore throat. Respiratory: Negative for cough and shortness of breath. Cardiovascular: Negative for chest pain. Gastrointestinal: Negative for abdominal pain, diarrhea and vomiting. Genitourinary: Positive for dysuria, frequency and urgency. Negative for hematuria, vaginal bleeding, vaginal discharge and vaginal pain. Objective BP 101/62 Pulse 69 Temp 36.4 ?C (97.6 ?F) Resp 18 Wt 98.4 kg (216 lb 14.9 oz) SpO2 100% BMI 39.68 kg/m? Physical Exam Vitals and nursing note reviewed. Constitutional: General: She is not in acute distress. Appearance: Normal appearance. She is not toxic-appearing. HENT: Nose: Nose normal. Mouth/Throat: Mouth: Mucous membranes are moist. Eyes: Conjunctiva/sclera: Conjunctivae normal. Cardiovascular: Rate and Rhythm: Normal rate and regular rhythm. Pulmonary: (more content not included)... Normal [facility] LUISBELLE ([id number]) 1970 F Date Time Provider Department 01/29/24 MIMA HOLDER [facility] During your visit today, we recorded the following information about you: Mima Holder PA 01/29/2024 12:23 PM Signed Called patient, left voicemail to return call. If she returns call, please let her know to not take her Xanax while taking the Diflucan for yeast. Jeanna Santos LPN 01/29/2024 12:25 PM Signed Patient notified.Jeanna Santos LPN Allergies As of Date: 01/29/2024 Noted Allergy Reaction CODEINE 01/23/2012 2 - Rash HYDROCODONE 06/08/2021 2 - Rash NAPROXEN 06/13/2022 14 - Other: See Comments SULFA (SULFONAMIDE ANTIBIOTICS) 01/23/2012 2 - Rash TRAMADOL 06/13/2022 16 - Unknown Comments: threw me for a loop VICODIN (HYDROCODONE-ACETAMINOPHE*01/04 2 - Rash Date Reviewed: 01/29/2024 Reviewed by: Chelita Mendiola LPN - Fully Assessed Reason for Visit: Medication Problem [65] Prescriptions as of 01/29/2024 - nitrofurantoin monohydrate and macrocrystal (MACROBID) 100 mg capsule Take 1 capsule by mouth two times a day for 5 days. - fluconazole (DIFLUCAN) 150 mg tablet Take 1 tablet by mouth one time only for 1 dose. Repeat in 3 days as needed. - methylPREDNISolone (MEDROL DOSE-PACK) 4 mg Dose-Pack - biotin 1 mg cap 5 mg. - magnesium oxide 200 mg magnesium chew Take by mouth. - Vitamin E95-Wlucu Acid 0.5-1 mg tab Take by mouth. - cholecalciferol, vitamin D3, 10 mcg (400 unit) cap Dose : 10,000 Int unit =, Oral, qDay, 0 Refill(s) - cetirizine (ZYRTEC) 10 mg tablet cetirizine 10 mg tablet - fluticasone (FLONASE) 50 mcg/actuation nasal spray fluticasone propionate 50 mcg/actuation nasal spray,suspension - gabapentin (NEURONTIN) 100 mg capsule gabapentin 100 mg capsule - LIDOCAINE PAIN RELIEF 4 % patch - promethazine (PHENERGAN) 25 mg tablet 25 mg. - FLUoxetine (PROZAC) 40 mg capsule 80 mg. - lisinopril (ZESTRIL) 20 mg tablet lisinopril 20 mg tablet - omeprazole (PRILOSEC) 20 mg capsule Take 1 capsule by mouth once daily. - ALPRAZolam (XANAX) 0.5 mg tablet Take 1 tablet by mouth at bedtime as needed. - hydrochlorothiazide 25 mg tablet Take 1 tablet by mouth once daily. - metFORMIN 1,000 mg tablet Take 1 tablet by mouth twice daily with meals. Problem List As Of Date 01/29/2024 Noted Resolved Chronic cholecystitis [K81.1] 02/16/2012 Incisional hernia [K43.2] 02/16/2012 Skin infection [L08.9] 02/16/2012 Ear problem [H93.90] 11/15/2012 EMANUEL (obstructive sleep apnea) [G47.33] 11/15/2012 Morbid obesity with BMI of 40.0-44.9, adult [E6*11/15/2012 Macromastia [N62] 07/26/2022 Cervicalgia [M54.2] 07/26/2022 Pain in thoracic spine [M54.6] 07/26/2022 Intertrigo [L30.4] 07/26/2022 Encounter Status:Closed by JEANNA SANTOS on 01/29/24 Normal [facility] Plastic Surgery Visit Report on 01-29-2024 Plastic Surgery Visit Report [facility] Plastic Reconstructive Surgery [address], [address] [place], [place] [id number] OFFICE VISIT Date of Service: 01/29/24 MR#: [id number] Acct: [id number] Name: BELLE HAMM #: [id number] : 1970 Provider: Dr. Teresa vu MD Age/Sex: 53/F Location: [facility] Status: Signed Intake Vital Signs 11/16/23 06:03 01/22/24 13:44 01/29/24 12:53 Height 5 ft 2 in 5 ft 2 in 5 ft 2 in BP 105/69 98/64 Blood Pressure Location Lt brachial Lt brachial Position Sitting Sitting Respiration 18 18 Pulse 72 68 Temp 97.9 F 97.7 F L Temp Source Oral Oral Pulse Oximetry (%) 95 96 Oxygen Delivery Method room air room air Intake Visit Reasons: post #2 valdez breast red Chief Complaint: post #2 valdez breast reduction Is patient in pain?: No Allergies codeine (From Tylenol-Codeine) Allergy (Verified 01/29/24 12:54) Rash hydrocodone (From Vicodin) Allergy (Verified 01/29/24 12:54) Rash Sulfa (Sulfonamide Antibiotics) Allergy (Verified 01/29/24 12:54) Rash NSAIDS (Non-Steroidal Anti-Inflamma Adverse Reaction (Verified 01/29/24 12:54) Other Medications ???Medication ???Instructions ???Recorded ???Confirmed ???Type alprazolam 0.25 mg tablet (Xanax) 0.5 mg PO PRN PRN Anxiety 06/08/21 01/29/24 History fluoxetine 40 mg capsule (Prozac) 80 mg PO DAILY 06/08/21 01/29/24 History gabapentin 100 mg tablet 300 mg PO TID 06/08/21 01/29/24 History hydrochlorothiazide 25 mg tablet 25 mg PO DAILY 06/08/21 01/29/24 History lisinopril 20 mg tablet 20 mg PO DAILY 06/08/21 01/29/24 History metformin 1,000 mg tablet 1,000 mg PO BID 06/08/21 01/29/24 History cetirizine 10 mg tablet 10 mg PO DAILY 01/23/23 01/29/24 History pantoprazole 20 mg tablet,delayed 20 mg PO BID 07/26/23 01/29/24 History release ondansetron 4 mg disintegrating 4 mg PO Q8H PRN nausea and 10/11/23 01/29/24 Rx tablet vomiting #90 tabs amitriptyline 25 mg tablet 25 mg PO QHS #30 TABLETS 11/30/23 01/29/24 Rx buspirone 5 mg tablet 5 mg PO TID 12/19/23 01/29/24 History diltiazem HCl 30 mg tablet 30 mg PO QHS #30 TABLETS 12/31/23 01/29/24 Rx biotin 2,500 mcg capsule 5 mg PO DAILY 01/04/24 01/29/24 History cephalexin 500 mg capsule 500 mg PO BID #14 caps 01/29/24 01/29/24 Rx Nurse's Note: pt here for post op#2 valdez breast reduction, pt stated went to doctor, might be anemic Subjective Details: Belle comes in for recheck of the bilateral breast reduction done 2 weeks ago. She denies any problems other than itching. Objective Details: Incisions are well-approximated. Much of the ecchymosis has resolved but there is still some ecchymosis around the left areola. There is also a small amount of erythema around the left areola. The wounds were redressed with antibiotic ointment and dry gauze. She is placed back in her surgery bra. She can begin to shower and drive. I will call in a prescription for an antibiotic in consideration of the pinkness around the left areola. She should continue maintaining an elevated position when reclining and to avoid excess use of her arms which can pull open the incisions. I will see her back in a week for recheck. Coding Level of Care Code Global Post Op Diagnoses Status post breast reduction Z98.890 [facility] Medical History History of hiatal hernia Sleep apnea Wears glasses Anxiety Diabetes Restless legs Dietary restriction Gastric reflux Former smoker CPAP (continuous positive airway pressure) dependence Neuropathy History of echocardiogram History of stress test Hypertension Encounter for screening for malignant neoplasm of colon Surgical History History of esophagogastroduodenoscopy (EGD) Bariatric surgery status Hx of colonoscopy History of esophagogastroduodenoscopy (EGD) Hx of hernia repair History of tonsillectomy and adenoidectomy Hx of foot surgery Hx of total hysterectomy Hx of gastric bypass Hx laparoscopic cholecystectomy Family History Brother Diabetes Heart disease Social History Smoking Status: Former smoker how long ago did patient quit smoking: quit 2012 alcohol intake: never substance use type: does not use additional social history: denies vaping, denies marijuana use, denies edible, denies aspirin use denies ibuprofen Assessment and Plan (No Qualifiers) Assessment and Plan (1) Status post breast reduction: Status: Acute Plan Details Additional Comments: Follow-up 1 week 01/29/24 1454 Date Teresa [place] MD Cosigner Signature: Date (more content not included)... Normal [facility] UA DIP, URINE (POC)on 2023 BILIRUBIN UA (POCT) Negative Negative [facility] CLARITY UA (POCT) Turbid [facility] COLOR UA (POCT) Dark yellow [facility] GLUCOSE UA (POCT) Negative Negative mg/dL [facility] Hemoglobin Ql (U) Negative Negative [facility] Interpretation and review of laboratory results Abnormal [facility] KETONE UA (POCT) Negative Negative mg/dL [facility] LEUKOCYTES UA (POCT) Small Abnormal Negative [facility] NITRITE UA (POCT) Positive Abnormal Negative [facility] PH UA (POCT) 5.0 4.5 - 8.0 [facility] Protein Ql (U) Negative Negative mg/dL [facility] SPECIFIC GRAVITY UA (POCT) 1.025 1.005 - 1.030 [facility] UROBILINOGEN UA (POCT) 0.2 Normal E.U./dL [facility] Location:[facility], [address] [place] [address], [place], [place], [id number] [place] [address] POINT OF CARE [facility] .Auto Diffon 01-24-2024 Basophil, Absolute 0.0 10 3/mcL Normal 0.0-0.2 [facility] Comment on above: Performed By: #### A DIFF, CBC, ANEU, CMP, GFR #### [address] [address] Basophils/100 WBC (Bld) 0.6 % Normal 0.0-2.5 [facility] Comment on above: Performed By: #### A DIFF, CBC, ANEU, CMP, GFR #### [address] [address] Eosinophil, Absolute 0.2 10 3/mcL Normal 0.0-0.7 [facility] Comment on above: Performed By: #### A DIFF, CBC, ANEU, CMP, GFR #### [address] [address] Eosinophils/100 WBC (Bld) 2.5 % Normal 0.0-7.0 [facility] Comment on above: Performed By: #### A DIFF, CBC, ANEU, CMP, GFR #### [address] [address] Lymphocyte, Absolute 2.1 10 3/mcL Normal 0.9-4.3 [facility] Comment on above: Performed By: #### A DIFF, CBC, ANEU, CMP, GFR #### [address] [address] Lymphocytes/100 WBC (Bld) 31.8 % Normal 20.0-40.0 [facility] Comment on above: Performed By: #### A DIFF, CBC, ANEU, CMP, GFR #### [address] [address] Monocyte, Absolute 0.3 10 3/mcL Normal 0.1-1.4 [facility] Comment on above: Performed By: #### A DIFF, CBC, ANEU, CMP, GFR #### [address] [address] Monocytes/100 WBC (Bld) 4.2 % Normal 2.0-13.0 [facility] Comment on above: Performed By: #### A DIFF, CBC, ANEU, CMP, GFR #### [address] [address] Neutrophils/100 WBC (Bld) 60.9 % Normal 50.0-75.0 [facility] Comment on above: Performed By: #### A DIFF, CBC, ANEU, CMP, GFR #### [address] [place], [place] [address] .GFRon 01-24-2024 GFR Non- 62 ml/min/1.73sqm Normal [facility] Comment on above: Result Comment: GFR Population mean for , Non- Americans Ages 20-29 = 116 mL/min/1.73 sq.m. Ages 30-39 = 107 mL/min/1.73 sq.m. Ages 40-49 = 99 mL/min/1.73 sq.m. Ages 50-59 = 93 mL/min/1.73 sq.m. Ages 60-69 = 85 mL/min/1.73 sq.m. Ages 70+ = 75 mL/min/1.73 sq.m. Chronic Kidney Disease: Less than 60 mL/min/1.73 square meters End Stage Renal Disease: Less than 15 mL/min/1.73 square meters Performed By: #### A DIFF, CBC, ANEU, CMP, GFR ####[address] [place], [place] [address] GFR 75 ml/min/1.73sqm Normal [facility] Comment on above: Result Comment: GFR Population mean for , Non- Americans Ages 20-29 = 116 mL/min/1.73 sq.m. Ages 30-39 = 107 mL/min/1.73 sq.m. Ages 40-49 = 99 mL/min/1.73 sq.m. Ages 50-59 = 93 mL/min/1.73 sq.m. Ages 60-69 = 85 mL/min/1.73 sq.m. Ages 70+ = 75 mL/min/1.73 sq.m. Chronic Kidney Disease: Less than 60 mL/min/1.73 square meters End Stage Renal Disease: Less than 15 mL/min/1.73 square meters Performed By: #### A DIFF, CBC, ANEU, CMP, GFR ####[address] [place], [place] [address] .NEUABSon 01-24-2024 Neutrophil, Absolute 4.0 10 3/mcL Normal 2.3-8.1 [facility] Comment on above: Performed By: #### A DIFF, CBC, ANEU, CMP, GFR #### [address] [address] CBCon 01-24-2024 Erythrocyte distribution width (RBC) [Ratio] 12.7 % Normal 11.5-15.5 [facility] Comment on above: Performed By: #### A DIFF, CBC, ANEU, CMP, GFR #### [address] [address] Hematocrit (Bld) [Volume fraction] 33.9 % Low 34.0-46.0 [facility] Comment on above: Performed By: #### A DIFF, CBC, ANEU, CMP, GFR #### [address] [address] Hgb 11.4 G/dL Low 12.0-16.0 [facility] Comment on above: Performed By: #### A DIFF, CBC, ANEU, CMP, GFR #### [address] [address] MCH (RBC) [Entitic mass] 30.6 pg Normal 27.0-33.0 [facility] Comment on above: Performed By: #### A DIFF, CBC, ANEU, CMP, GFR #### [address] [address] MCHC 33.5 G/dL Normal 32.0-36.0 [facility] Comment on above: Performed By: #### A DIFF, CBC, ANEU, CMP, GFR #### [address] [address] MCV (RBC) [Entitic vol] 91.4 fL Normal 80.0-99.0 [facility] Comment on above: Performed By: #### A DIFF, CBC, ANEU, CMP, GFR #### [address] [address] Platelet 341 10 3/mcL Normal 150-450 [facility] Comment on above: Performed By: #### A DIFF, CBC, ANEU, CMP, GFR #### [address] [address] Platelet mean volume (Bld) [Entitic vol] 7.9 fL Normal 6.6-10.5 [facility] Comment on above: Performed By: #### A DIFF, CBC, ANEU, CMP, GFR #### [place] [address] RBC 3.71 10 6/mcL Low 4.10-5.30 [facility] Comment on above: Performed By: #### A DIFF, CBC, ANEU, CMP, GFR #### [place] [address] WBC 6.6 10 3/mcL Normal 4.5-10.8 [facility] Comment on above: Performed By: #### A DIFF, CBC, ANEU, CMP, GFR #### [place] [address] CMPon 01-24-2024 Albumin Level 3.0 G/dL Low 3.5-5.0 [facility] Comment on above: Performed By: #### A DIFF, CBC, ANEU, CMP, GFR #### [place] [address] Albumin/Globulin [Mass ratio] 0.9 {ratio} Low 1.1-2.5 [facility] Comment on above: Performed By: #### A DIFF, CBC, ANEU, CMP, GFR #### [place] [id number] ALP [Catalytic activity/Vol] 100 U/L Normal 40-135 [facility] Comment on above: Performed By: #### A DIFF, CBC, ANEU, CMP, GFR #### [place] [address] ALT [Catalytic activity/Vol] 33 U/L Normal 14-59 [facility] Comment on above: Performed By: #### A DIFF, CBC, ANEU, CMP, GFR #### [address] [place] [address] [place], [place] [address] AST [Catalytic activity/Vol] 27 U/L Normal 10-40 [facility] Comment on above: Performed By: #### A DIFF, CBC, ANEU, CMP, GFR #### [address] [address] Bili Total 0.3 mg/dL Normal 0.2-1.0 [facility] Comment on above: Result Comment: Use of this assay is not recommended for patients undergoing treatment with eltrombopag due to the potential for falsely elevated results. Performed By: #### A DIFF, CBC, ANEU, CMP, GFR #### [place] [address] BUN/Creatinine Ratio 7 ratio Normal 7-27 [facility] Comment on above: Performed By: #### A DIFF, CBC, ANEU, CMP, GFR #### [place] [id number] Calcium [Mass/Vol] 9.2 mg/dL Normal 8.4-10.2 [facility] Comment on above: Performed By: #### A DIFF, CBC, ANEU, CMP, GFR #### [place] [address] Chloride [Moles/Vol] 99 mmol/L Normal 98-107 [facility] Comment on above: Performed By: #### A DIFF, CBC, ANEU, CMP, GFR #### [place] [id number] CO2 [Moles/Vol] 30 mmol/L High 22-29 [facility] Comment on above: Performed By: #### A DIFF, CBC, ANEU, CMP, GFR #### [address] [address] Creatinine [Mass/Vol] 0.95 mg/dL Normal 0.55-1.02 [facility] Comment on above: Result Comment: Test ing performed on Siemens Dimension EXL analyzer using a modified kinetic Dot technique. Performed By: #### A DIFF, CBC, ANEU, CMP, GFR #### [place] [id number] Electrolyte Balance 9.0 mEq/L Normal 4.0-15.0 [facility] Comment on above: Performed By: #### A DIFF, CBC, ANEU, CMP, GFR #### [address] [address] Globulin 3.3 G/dL Normal [facility] Comment on above: Performed By: #### A DIFF, CBC, ANEU, CMP, GFR #### [address] [address] Glucose [Mass/Vol] 137 mg/dL High 70-105 [facility] Comment on above: Performed By: #### A DIFF, CBC, ANEU, CMP, GFR #### [address] [address] Potassium [Moles/Vol] 4.1 mmol/L Normal 3.5-5.1 [facility] Comment on above: Performed By: #### A DIFF, CBC, ANEU, CMP, GFR #### [address] [address] Sodium [Moles/Vol] 138 mmol/L Normal 136-145 [facility] Comment on above: Performed By: #### A DIFF, CBC, ANEU, CMP, GFR #### [address] [address] Total Protein 6.3 G/dL Low 6.4-8.2 [facility] Comment on above: Performed By: #### A DIFF, CBC, ANEU, CMP, GFR #### [address] [address] Urea nitrogen [Mass/Vol] 7 mg/dL Normal 7-18 [facility] Comment on above: Performed By: #### A DIFF, CBC, ANEU, CMP, GFR #### [address] [address] LABORATORYOrdered By: SYSTEM SYSTEM on 01-24-2024 Albumin BCP dye [Mass/Vol] 3.0 G/dL Low 3.5 - 5.0 G/dL AO ADM SS Albumin/Globulin [Mass ratio] 0.9 {ratio} Low 1.1 - 2.5 ratio AO ADM SS ALP [Catalytic activity/Vol] 100 U/L Normal 40 - 135 U/L AO ADM SS ALT With P-5'-P [Catalytic activity/Vol] 33 U/L Normal 14 - 59 U/L AO ADM SS AST With P-5'-P [Catalytic activity/Vol] 27 U/L Normal 10 - 40 U/L AO ADM SS Basophils (Bld) [#/Vol] 0.0 103/mcL Normal 0.0 - 0.2 10^3/mcL AO Workflow SS Basophils/100 WBC (Bld) 0.6 % Normal 0.0 - 2.5 % AO Workflow SS Bilirubin [Mass/Vol] 0.3 mg/dL Normal 0.2 - 1.0 mg/dL AO ADM SS Comment on above: Interpretive Data: U se of this assay is not recommended for patients undergoing treatment with eltrombopag due to the potential for falsely elevated results. Calcium [Mass/Vol] 9.2 mg/dL Normal 8.4 - 10. 2 mg/dL AO ADM SS Chloride [Moles/Vol] 99 mmol/L Normal 98 - 107 mmol/L AO ADM SS CO2 [Moles/Vol] 30 mmol/L High 22 - 29 mmol/L AO ADM SS Creatinine [Mass/Vol] 0.95 mg/dL Normal 0.55 - 1.02 mg/dL AO ADM SS Comment on above: Interpretive Data: T esting performed on Siemens Dimension EXL analyzer using a modified kinetic Dot technique. Electrolyte Balance 9.0 mEq/L Normal 4.0 - 15 .0 mEq/L AO ADM SS Eosinophil, Absolute 0.2 103/mcL Normal 0.0 - 0.7 10^3/mcL AO Workflow SS Eosinophils/100 WBC (Bld) 2.5 % Normal 0.0 - 7.0 % AO Workflow SS Erythrocyte distribution width (RBC) [Ratio] 12.7 % Normal 11.5 - 15.5 % AO Workflow SS GFR/1.73 sq M.predicted among blacks MDRD (S/P/Bld) [Vol rate/Area] 75 ml/min/1.73sqm Invalid Interpretation Code AO Chemistry S Comment on above: Interpretive Data: GFR Population mean for , Non- Americans Ages 20-29 = 116 mL/min/1.73 sq.m. Ages 30-39 = 107 mL/min/1.73 sq.m. Ages 40-49 = 99 mL/min/1.73 sq.m. Ages 50-59 = 93 mL/min/1.73 sq.m. Ages 60-69 = 85 mL/min/1.73 sq.m. Ages 70+ = 75 mL/min/1.73 sq.m. Chronic Kidney Disease: Less than 60 mL/min/1.73 square meters End Stage Renal Disease: Less than 15 mL/min/1.73 square meters GFR/1.73 sq M.predicted among non-blacks MDRD (S/P/Bld) [Vol rate/Area] 62 ml/min/1.73sqm Invalid Interpretation Code AO Chemistry S Comment on above: Interpretive Data: GFR Population mean for , Non- Americans Ages 20-29 = 116 mL/min/1.73 sq.m. Ages 30-39 = 107 mL/min/1.73 sq.m. Ages 40-49 = 99 mL/min/1.73 sq.m. Ages 50-59 = 93 mL/min/1.73 sq.m. Ages 60-69 = 85 mL/min/1.73 sq.m. Ages 70+ = 75 mL/min/1.73 sq.m. Chronic Kidney Disease: Less than 60 mL/min/1.73 square meters End Stage Renal Disease: Less than 15 mL/min/1.73 square meters Globulin 3.3 G/dL Invalid Interpretation Code AO ADM SS Glucose [Mass/Vol] 137 mg/dL High 70 - 105 mg/dL AO ADM SS Hematocrit (Bld) [Volume fraction] 33.9 % Low 34.0 - 46.0 % AO Workflow SS Hemoglobin (Bld) [Mass/Vol] 11.4 G/dL Low 12.0 - 16.0 G/dL AO Workflow SS Lymphocytes (Bld) [#/Vol] 2.1 103/mcL Normal 0.9 - 4.3 10^3/mcL AO Workflow SS Lymphocytes/100 WBC (Bld) 31.8 % Normal 20.0 - 40.0 % AO Workflow SS MCH (RBC) [Entitic mass] 30.6 pg Normal 27.0 - 33.0 pg AO Workflow SS MCHC 33.5 G/dL Normal 32.0 - 36.0 G/dL AO Workflow SS MCV (RBC) [Entitic vol] 91.4 fL Normal 80.0 - 99.0 fL AO Workflow SS Monocytes (Bld) [#/Vol] 0.3 103/mcL Normal 0.1 - 1.4 10^3/mcL AO Workflow SS Monocytes/100 WBC (Bld) 4.2 % Normal 2.0 - 13.0 % AO Workflow SS Neutrophils (Bld) [#/Vol] 4.0 103/mcL Normal 2.3 - 8.1 10^3/mcL AO Workflow SS Neutrophils/100 WBC (Bld) 60.9 % Normal 50.0 - 75.0 % AO Workflow SS Platelet mean volume (Bld) [Entitic vol] 7.9 fL Normal 6.6 - 10.5 fL AO Workflow SS Platelets (Bld) [#/Vol] 341 103/mcL Normal 150 - 450 10^3/mcL AO Workflow SS Potassium [Moles/Vol] 4.1 mmol/L Normal 3.5 - 5.1 mmol/L AO ADM SS Protein [Mass/Vol] 6.3 G/dL Low 6.4 - 8.2 G/dL AO ADM SS RBC (Bld) [#/Vol] 3.71 106/mcL Low 4.10 - 5.30 10^6/mcL AO Workflow SS Sodium [Moles/Vol] 138 mmol/L Normal 136 - 145 mmol/L AO ADM SS Urea nitrogen [Mass/Vol] 7 mg/dL Normal 7 - 18 mg/dL AO ADM SS Urea nitrogen/Creatinine [Mass ratio] 7 ratio Normal 7 - 27 ratio AO ADM SS WBC (Bld) [#/Vol] 6.6 103/mcL Normal 4.5 - 10.8 10^3/mcL AO Workflow SS Plastic Surgery Visit Report on 01-22-2024 Plastic Surgery Visit Report [facility] Re[facility]ive [facility] [address] [place], [place] [id number] OFFICE VISIT Date of Service: 01/22/24 MR#: [id number] Acct: [id number] Name: BELLE HAMM Rep #: [id number] : 1970 Provider: Dr. Teresa vu MD Age/Sex: 53/F Location: [facility] Status: Signed Intake Vital Signs 11/16/23 06:03 01/18/24 06:21 01/22/24 13:44 Height 5 ft 2 in 5 ft 2 in 5 ft 2 in BP 105/69 Blood Pressure Location Lt brachial Position Sitting Respiration 18 Pulse 72 Temp 97.9 F Temp Source Oral Pulse Oximetry (%) 95 Oxygen Delivery Method room air Intake Visit Reasons: post #1 valdez breast red Chief Complaint: post #1 valdez breast reduction Accompanied by: Is patient in pain?: Yes (03/14) Allergies codeine (From Tylenol-Codeine) Allergy (Verified 01/22/24 13:45) Rash hydrocodone (From Vicodin) Allergy (Verified 01/22/24 13:45) Rash Sulfa (Sulfonamide Antibiotics) Allergy (Verified 01/22/24 13:45) Rash NSAIDS (Non-Steroidal Anti-Inflamma Adverse Reaction (Verified 01/22/24 13:45) Other Medications ???Medication ???Instructions ???Recorded ???Confirmed ???Type alprazolam 0.25 mg tablet (Xanax) 0.5 mg PO PRN PRN Anxiety 06/08/21 01/22/24 History fluoxetine 40 mg capsule (Prozac) 80 mg PO DAILY 06/08/21 01/22/24 History gabapentin 100 mg tablet 300 mg PO TID 06/08/21 01/22/24 History hydrochlorothiazide 25 mg tablet 25 mg PO DAILY 06/08/21 01/22/24 History lisinopril 20 mg tablet 20 mg PO DAILY 06/08/21 01/22/24 History metformin 1,000 mg tablet 1,000 mg PO BID 06/08/21 01/22/24 History cetirizine 10 mg tablet 10 mg PO DAILY 01/23/23 01/22/24 History pantoprazole 20 mg tablet,delayed 20 mg PO BID 07/26/23 01/22/24 History release ondansetron 4 mg disintegrating 4 mg PO Q8H PRN nausea and 10/11/23 01/22/24 Rx tablet vomiting #90 tabs pantoprazole 40 mg tablet,delayed 40 mg PO BID 2 months #120 tabs 11/29/23 01/22/24 Rx release amitriptyline 25 mg tablet 25 mg PO QHS #30 TABLETS 11/30/23 01/22/24 Rx buspirone 5 mg tablet 5 mg PO TID 12/19/23 01/22/24 History diltiazem HCl 30 mg tablet 30 mg PO QHS #30 TABLETS 12/31/23 01/22/24 Rx cephalexin 500 mg capsule 500 mg PO BID #14 caps 01/02/24 01/22/24 Rx biotin 2,500 mcg capsule 5 mg PO DAILY 01/04/24 01/22/24 History Nurse's Note: pt valdez breast reduction post #1, having issues with pain. Today pain is tolerable 03/14. Subjective Details: Belle comes in for recheck of the bilateral breast reduction done last week. She denies any problems other than some pain requiring her to take Percocet. Objective Details: The incisions are well-approximated. She has moderate bruising bilaterally and on the chest wall which is more than usually seen. There is no evidence of hematoma. There is no evidence of infection. A few of the periareolar sutures are removed. The dressings were replaced with Xeroform and dry gauze. The patient is cautioned regarding her activity and use of her arms. I have also encouraged the patient to ensure she gets protein daily to help with wound healing. I reviewed the pathology report which demonstrated fatty benign breast tissue and otherwise no pathologic findings. I will see her back in a week for recheck. Coding Level of Care Code Global Post Op Diagnoses Status post breast reduction Z98.890 [facility] Medical History History of hiatal hernia Sleep apnea Wears glasses Anxiety Diabetes Restless legs Dietary restriction Gastric reflux Former smoker CPAP (continuous positive airway pressure) dependence Neuropathy History of echocardiogram History of stress test Hypertension Encounter for screening for malignant neoplasm of colon Surgical History History of esophagogastroduodenoscopy (EGD) Bariatric surgery status Hx of colonoscopy History of esophagogastroduodenoscopy (EGD) Hx of hernia repair History of tonsillectomy and adenoidectomy Hx of foot surgery Hx of total hysterectomy Hx of gastric bypass Hx laparoscopic cholecystectomy Family History Brother Diabetes Heart disease Social History Smoking Status: Former smoker how long ago did patient quit smoking: quit 2012 alcohol intake: never substance use type: does not use additional social history: denies vaping, denies marijuana use, denies edible, denies aspirin use denies ibuprofen Assessment and Plan (No Qualifiers) Assessment and Plan (1) Status post breast reduction: Status: Acute Plan Details Additional Comments: She is to follow-up in 1 week. 01/22/24 (more content not included)... Normal [facility] Bedside Glucoseon 01-18-2024 FINGERSTICK GLU 116 mg/dL High 74-106 [facility] Comment on above: Result Comment: RUI HERRON OF PATIENT CARE PER NURSING PROTOCOL Performed By: #### L 501.080 ####[facility] [id number] [facility] [place], [address] Discharge Instructionon 01-03 Discharge Instruction [facility] Medical Records Department [address] [place] [address] Instructions for Home/Discharge Instructions 01/18/24 1257 MR#: [id number] Acct: [id number] Name: BELLE HAMM Rep #: [id number] : 1970 53 From: Teresa Ramsey MD PCP: Dr. Berenice Bowling DO Status:REG [facility] Discharge Instructions Dressing / Incision Additional Dressing/Incision Instructions:: Follow the instructions given in the office. Keep your back elevated to reduce swelling and bruising. Follow Up Care Please Follow Up With: Teresa Ramsey MD Test Results: Test results from this visit will be discussed in further detail at your follow-up appointment, if applicable. Discharge Plan Admission Attending Provider: Teresa Ramsey Primary Care Provider: Berenice Bowling Instructions Print Language: Yoruba Discharge Orders/Prescriptions Prescriptions: No Action buspirone 5 mg tablet 5 mg PO TID cephalexin 500 mg capsule 500 mg PO BID Qty: 14 0RF fluoxetine [Prozac] 40 mg Capsule 80 mg PO DAILY lisinopril 20 mg Tablet 20 mg PO DAILY alprazolam [Xanax] 0.25 mg Tablet 0.5 mg PO PRN PRN (Reason: Anxiety) metformin 1,000 mg Tablet 1,000 mg PO BID hydrochlorothiazide 25 mg Tablet 25 mg PO DAILY gabapentin 100 mg Tablet 300 mg PO TID cetirizine 10 mg tablet 10 mg PO DAILY Patient Comments: TAKE 1 TABLET BY MOUTHiONCE DAILY pantoprazole 20 mg tablet,delayed release (DR/EC) 20 mg PO BID biotin 2,500 mcg capsule 5 mg PO DAILY ondansetron 4 mg tablet,disintegrating 4 mg PO Q8H PRN (Reason: nausea and vomiting) Qty: 90 0RF pantoprazole 40 mg tablet,delayed release (DR/EC) 40 mg PO BID 60 Days Qty: 120 0RF amitriptyline 25 mg tablet 25 mg PO QHS Qty: 30 2RF diltiazem HCl 30 mg tablet 30 mg PO QHS Qty: 30 0RF Referrals / Follow Up: Berenice Bowling DO [Primary Care Provider] - Disposition Disposition (needs filled in before D/C Order can be placed): Home, Self Care 01/18/24 1259 Teresa Ramsey MD CC: Dr. Berenice Bowling DO Signed Normal [facility] Discharge Instruction [facility] Medical Records Department [address] [place] [address] Instructions for Home/Discharge Instructions 01/18/24 1255 MR#: [id number] Acct: [id number] Name: BELLE HAMM Rep #: [id number] : 1970 53 From: Teresa Ramsey MD PCP: Dr. Berenice Bowling DO Status:REG [facility] Discharge Instructions Dressing / Incision Additional Dressing/Incision Instructions:: Follow the instructions given in the office. Keep your back elevated to reduce swelling and bruising. Follow Up Care Please Follow Up With: Teresa Ramsey MD When: Next week Test Results: Test results from this visit will be discussed in further detail at your follow-up appointment, if applicable. Discharge Plan Admission Attending Provider: Teresa Ramsey Primary Care Provider: Berenice Bowling Instructions Print Language: Yoruba Discharge Orders/Prescriptions Prescriptions: No Action buspirone 5 mg tablet 5 mg PO TID cephalexin 500 mg capsule 500 mg PO BID Qty: 14 0RF fluoxetine [Prozac] 40 mg Capsule 80 mg PO DAILY lisinopril 20 mg Tablet 20 mg PO DAILY alprazolam [Xanax] 0.25 mg Tablet 0.5 mg PO PRN PRN (Reason: Anxiety) metformin 1,000 mg Tablet 1,000 mg PO BID hydrochlorothiazide 25 mg Tablet 25 mg PO DAILY gabapentin 100 mg Tablet 300 mg PO TID cetirizine 10 mg tablet 10 mg PO DAILY Patient Comments: TAKE 1 TABLET BY MOUTHiONCE DAILY pantoprazole 20 mg tablet,delayed release (DR/EC) 20 mg PO BID biotin 2,500 mcg capsule 5 mg PO DAILY ondansetron 4 mg tablet,disintegrating 4 mg PO Q8H PRN (Reason: nausea and vomiting) Qty: 90 0RF pantoprazole 40 mg tablet,delayed release (DR/EC) 40 mg PO BID 60 Days Qty: 120 0RF amitriptyline 25 mg tablet 25 mg PO QHS Qty: 30 2RF diltiazem HCl 30 mg tablet 30 mg PO QHS Qty: 30 0RF Referrals / Follow Up: Berenice Bowling DO [Primary Care Provider] - Disposition Disposition (needs filled in before D/C Order can be placed): Home, Self Care 01/18/24 1257 Teresa Ramsey MD CC: Dr. Berenice Bowling DO Signed [facility] MR/POSTOP.[facility] 01-18-2024 MR/POSTOP.[facility] Medical Records Department [address] [place] [address] Anesthesia Postop Eval I 01/18/24 1304 MR#: [id number] Acct: [id number] Name: BELLE HAMM Rep #: [id number] : 1970 53 From: Rita Lewis CRNA PCP: Dr. Berenice Bowling DO Status:REG [facility] Y Race: C Location: [place] [address] Anesthesia: Postop Eval I Current Vital Signs Temperature: 97.3 F Pulse Rate: 92 Blood Pressure: 139/94 Respiratory Rate: 14 Pulse Ox: 94 Oxygen Delivery Method: Simple Mask Oxygen Flow Rate (L/min): 6 Assessment Airway patent: Yes Spontaneous unlabored respirations: Yes Mental status: Awake nausea: No Vomiting: No Anesthesia Complication: No Fluid Hydration Crystalloid volume administer (ml): 2,000 Total IV fluid infused: 2,000 Progress Note Anesthesia document: Postop Eval 1 completed: Yes 01/18/24 1305 Date Rita Lewis SENIOR SHIPPING CLERK Cosigner Signature: Date CC: Signed Normal [facility] MR/[id number] 01-18-2024 [facility] Medical Records Department [address] [place] [address] Anesthesia Postop Eval II 01/18/24 1646 MR#: [id number] Acct: [id number] Name: BELLE HAMM Rep #: [id number] : 1970 53 From: Bong Wheeler MD PCP: Dr. Berenice Bowling, DO Status:[facility] Y Race: C Location: [facility] Anesthesia Postop Eval I Sum Postop Eval Completion status Anesthesia document: Postop Eval 1 completed: Yes Anesthesia Postop Eval I Summary Anesthesia Postop Eval I Summary: Anesthesia Postop Eval I: Assessment Summary Airway patent Yes 01/18/24 13:05 SENIOR SHIPPING CLERK.HBARR Spontaneous unlabored Yes 01/18/24 13:05 SENIOR SHIPPING CLERK.HBARR respirations Mental status Awake 01/18/24 13:05 SENIOR SHIPPING CLERK.HBARR nausea No 01/18/24 13:05 SENIOR SHIPPING CLERK.HBARR Vomiting No 01/18/24 13:05 SENIOR SHIPPING CLERK.HBARR Anesthesia Postop Eval I: Fluid Summary Crystalloid volume administer 2,000 01/18/24 13:05 SENIOR SHIPPING CLERK.HBARR (ml) Colloids volume administered ( ml) Blood Product volume administered (ml) Total IV fluid infused 2,000 01/18/24 13:05 SENIOR SHIPPING CLERK.HBARR Anesthesia Postop Eval I: Summary Notes Anesthesia Complication No 01/18/24 13:05 SENIOR SHIPPING CLERK.HBARR Anesthesia Complication Comment: Post-operative progress note Anesthesia: Postop Eval II Evaluation Mental status: Awake and Calm Pain Level: 2 nausea: No Vomiting: No Complications Anesthesia Complication: No 01/18/24 1647 Date Bong Wheeler MD Cosigner Signature: Date CC: Signed Normal [facility] Operative Reporton 4 Operative Report [facility] Medical Records Department [address] [place] [address] Operative Report 01/18/24 1259 MR#: [id number] Acct: [id number] Name: BELLE HAMM Rep #: [id number] : 1970 53 From: Teresa Ramsey MD PCP: Dr. Berenice Bowling, DO Status:REG [facility] Location: [place] [address] Problems Associated Problem List Diagnoses (1) Chronic shoulder pain: (2) Chronic neck pain: (3) Breast hypertrophy: Operative Report (Standard) Operative Information Surgery/Procedure Performed: Bilateral breast reduction (right???304 g; left???364 g) Surgeon: Teresa Ramsey Date of Procedure: 01/18/24 Procedure Start Time: 08:04 Procedure Stop Time: 12:50 Pre-Operative Diagnosis: Bilateral mammary hypertrophy Chronic neck and back pain Post-Operative Diagnosis: The same Select all DRAINS/GRAFTS/IMPLANTS that apply: None Type of Anesthesia: General Estimated Blood Loss: 50 cc Specimen collected: Yes Description of specimen(s) removed: Bilateral breast tissue Description of surgery: The patient presents today for bilateral breast reduction due to chronic neck and back pain and breast hypertrophy. The procedure had been thoroughly reviewed with the patient and informed consent obtained. No guarantees as to the final size is made. The potential risks and complications of surgery were reviewed which include but are not exclusive of bleeding, infection, pain, numbness, asymmetry, scar tissue, skin necrosis, the need for further surgery, DVT, and even . She is marked in the preop holding area prior to surgery. The patient is brought to the operating room and placed under general anesthesia in the supine position. Care is taken to pad all pressure points, insert a Soriano catheter, a warming blanket, and sequential compression stockings. The breasts are prepped and draped in the usual sterile fashion. We initially began with incising the premarked incisions. Following this, the pedicle is de- epithelialized. The medial and lateral inferior aspects of the breast are removed using argon coagulation. Following this, the pedicle from the upper flap and dissection continued cephalad maintaining the flap at least 2 cm in thickness. Following this, the pedicle was trimmed in order to allow to comfortably fit beneath the upper flap. All tissue is passed off the operative field to be weighed and sent down to pathology. The wound is irrigated with antibiotic solution and checked for meticulous hemostasis. After this, the breast is tacked together using skin clips and silk suture. With a satisfactory size and shape noted, the incisions are closed. Vicryl sutures are initially placed along the inframammary crease to tack this together. Following this, a 3-0 STRATAFIX suture is used to approximate the incisions in 3 layers. Approximately 4-1/2 cm above the inframammary crease, the nipple areola is brought out through an opening. The nipple areola is then tacked in place using interrupted nylon sutures. All incisions are then approximated with a subcuticular strata fix suture. The identical procedure was performed on the opposite side. The incisions are then injected with quarter percent plain Marcaine. Xeroform is applied to the incisions followed by fluff gauze and she is placed in a front fastening bra that she has provided. She tolerated the procedure well was taken to the recovery area in an awake and stable condition. Needle and sponge counts are correct. Surgical Findings: Hypertrophied breast tissue Supervisor Calibration media center director school: Yes Veterinary Surgery Technologist: Yuan Almeida Tasks completed by title assistant: Opening closing and Retracting Complications Complications: No Admit VTE Documentation VTE Mechan Device Prophylaxis: SCD's 01/18/24 9685 Cosigner Signature (if applicable): CC: Dr. Berenice Bowling DO; Dr. Teresa Ramsey MD Signed Normal [facility] Surgery Specimen Level Nery 11-15-2024 Surgery Specimen Level IV -- Patient Age/Sex Location Account Attending Physician -- BELLE HAMM 53/F [facility] [id number] Dr. Teresa Ramsey MD -- Specimen: [id number] Received: 01/18/24 Status: KARINA Garrett Num: [id number] Spec Type: MAMOPLASTY Subm Dr: Dr. Teresa Ramsey MD HEADER OPERATION: Bilateral breast reduction PRE-OP DIAGNOSIS: Chronic shoulder pain, chronic neck pain, breast hypertrophy TISSUE SUBMITTED: A- Right breast tissue - 304gm, B- Left breast tissue - 364gm -- MICROSCOPIC DIAGNOSIS A. Right breast tissue, breast reduction mammoplasty: Fragments of fatty benign breast tissue. Skin - no pathologic diagnosis. B. Left breast tissue, breast reduction mammoplasty: Fragments of fatty benign breast tissue. Skin - no pathologic diagnosis. Focal microcalcifications. SJ. 01/22/2024 MICROSCOPIC DESCRIPTION Slides are reviewed. GROSS DESCRIPTION A - Received in fixative is one container labeled with the patient's name and designated Right breast tissue. The specimen consists of multiple pieces of fibroadipose tissue with a few of the pieces showing manrique-white skin, weighing in aggregate 316 gm and measuring in aggregate 18.0 x 19.0 x 3.0 cm. No skin lesion is identified. Sections reveal yellow adipose cut surfaces mixed with scant fibrous areas. No mass lesion is identified. Sas Programmer Analyst sections are submitted in six cassettes. Cassette 6 contains the skin piece. B - Received in fixative is one container labeled with the patient's name and designated Left breast tissue. The specimen consists of multiple pieces of fibroadipose tissue with a few of the pieces showing manrique-white skin, weighing in aggregate 377 gm and measuring in aggregate 20.0 x 18.0 x 4.0 cm. No skin lesion is identified. Sections reveal yellow adipose cut surfaces mixed with scant fibrous areas. No mass lesion is identified. Sas Programmer Analyst sections are submitted in six cassettes. Cassette 6 contains the skin piece. / CAILIN. 01/21/2024 TC:5 CPT:58176s6 -- Patient Age/Sex Location Account Attending Physician -- BELLE HAMM/F [facility] [id number] Dr. Teresa Ramsey MD -- Signed (signature on file) Dr. Isidro Brooks MD 01/22/24 1320 -- Normal [facility] Comment on above: Performed By: #### P SUIV ####[facility] [id number] [place], [place], [id number] Plastic Surgery Visit Report on 01-02-2024 Plastic Surgery Visit Report [facility] Plastic Reconstructive Surgery [address] [place], [place] [address] OFFICE VISIT Date of Service: 01/02/24 MR#: [id number] Acct: [id number] Name: BELLE HAMM Rep #: [id number] : 1970 Provider: Dr. Teresa vu MD Age/Sex: 53/F Location: [facility] Status: Signed Intake Vital Signs 11/16/23 06:03 12/19/23 09:38 01/02/24 09:40 Height 5 ft 2 in 5 ft 2 in Weight: 222 lb 2 oz 221 lb BMI 40.6 BP 106/71 119/77 Blood Pressure Location Lt brachial Position Sitting Respiration 16 18 Pulse 62 77 Pulse Source Monitor Temp 98.1 F 97.3 F L Temp Source Oral Oral Pulse Oximetry (%) 97 95 Oxygen Delivery Method room air room air Intake Visit Reasons: pre op #2 valdez breast redu Chief Complaint: pre op #2 valdez breast reduction Is patient in pain?: No Allergies codeine (From Tylenol-Codeine) Allergy (Verified 01/02/24 09:39) Rash hydrocodone (From Vicodin) Allergy (Verified 01/02/24 09:39) Rash Sulfa (Sulfonamide Antibiotics) Allergy (Verified 01/02/24 09:39) Rash NSAIDS (Non-Steroidal Anti-Inflamma Adverse Reaction (Verified 01/02/24 09:39) Other Medications ???Medication ???Instructions ???Recorded ???Confirmed ???Type alprazolam 0.25 mg tablet (Xanax) 0.5 mg PO PRN PRN Anxiety 06/08/21 01/02/24 History biotin 5,000 mcg sublingual tablet 5,000 mcg sublingual DAILY 06/08/21 01/02/24 History fluoxetine 40 mg capsule (Prozac) 80 mg PO DAILY 06/08/21 01/02/24 History gabapentin 100 mg tablet 300 mg PO TID 06/08/21 01/02/24 History hydrochlorothiazide 25 mg tablet 25 mg PO DAILY 06/08/21 01/02/24 History lisinopril 20 mg tablet 20 mg PO DAILY 06/08/21 01/02/24 History metformin 1,000 mg tablet 1,000 mg PO BID 06/08/21 01/02/24 History cetirizine 10 mg tablet 10 mg PO DAILY 01/23/23 01/02/24 History pantoprazole 20 mg tablet,delayed 20 mg PO BID 07/26/23 01/02/24 History release dulaglutide 0.75 mg/0.5 mL 0.75 mg subcut MO 09/17/23 01/02/24 History subcutaneous pen injector (Trulicity) ondansetron 4 mg disintegrating 4 mg PO Q8H PRN nausea and 10/11/23 01/02/24 Rx tablet vomiting #90 tabs pantoprazole 40 mg tablet,delayed 40 mg PO BID 2 months #120 tabs 11/29/23 01/02/24 Rx release amitriptyline 25 mg tablet 25 mg PO QHS #30 TABLETS 11/30/23 01/02/24 Rx buspirone 5 mg tablet 5 mg PO TID 12/19/23 01/02/24 History diltiazem HCl 30 mg tablet 30 mg PO QHS #30 TABLETS 12/31/23 01/02/24 Rx cephalexin 500 mg capsule 500 mg PO BID #14 caps 01/02/24 01/02/24 Rx oxycodone-acetaminophen 5 mg-325 1 tab PO TID PRN pain 3 days #8 01/02/24 01/02/24 Rx mg tablet (Percocet) tab-caps Have you fallen in the past year?: No Nurse's Note: pre op #2 valdez breast reduction PFSH Medical History History of hiatal hernia Sleep apnea Wears glasses Anxiety Diabetes Restless legs Dietary restriction Gastric reflux Former smoker CPAP (continuous positive airway pressure) dependence Neuropathy History of echocardiogram History of stress test Hypertension Encounter for screening for malignant neoplasm of colon Surgical History History of esophagogastroduodenoscopy (EGD) Bariatric surgery status Hx of colonoscopy History of esophagogastroduodenoscopy (EGD) Hx of hernia repair History of tonsillectomy and adenoidectomy Hx of foot surgery Hx of total hysterectomy Hx of gastric bypass Hx laparoscopic cholecystectomy Family History Brother Diabetes Heart disease Social History Smoking Status: Former smoker how long ago did patient quit smoking: quit 2012 alcohol intake: never substance use type: does not use additional social history: denies vaping, denies marijuana use, denies edible, denies aspirin use denies ibuprofen HPI pre op #2 valdez breast redu Details: Belle comes in for preop preparation regarding the upcoming breast reduction surgery which will be done in few weeks. She has recently had a blood work done. She is having her medical clearance done tomorrow. Exam Details The patient has significant breast hypertrophy and ptosis. The procedure breast reduction was reviewed with her including the incisions and scars as well as limitations after surgery. She has made arrangements for having a recliner available at home. She has not yet ordered postoperative bras. I have asked her to bring these the day of surgery because the limited sizes that are available here. Additionally because of her home use of her CPAP, I have asked her to bring that with her to the day of surgery. The medications to avoid before s (more content not included)... Normal [facility] Basic Metabolic Profile (BMP )on 12-19-2023 BUN/CRE 11.7 RATIO Normal - [facility] Comment on above: Order Comment: pre s urgery labs Performed By: #### L 500.2500, L100.0500 #### [facility] [address] [place], [address] CA,Total 9.2 mg/dL Normal 8.5-10.1 [facility] Comment on above: Order Comment: pre s urgery labs Performed By: #### L 500.2500, L100.0500 #### [facility] [address] [place], [address] Chloride [Moles/Vol] 102 mmol/L Normal 98-107 [facility] Comment on above: Order Comment: pre s urgery labs Performed By: #### L 500.2500, L100.0500 #### [facility] [address] [place], [address] CO2 [Moles/Vol] 28.0 mmol/L Normal 21.0-32.0 [facility] Comment on above: Order Comment: pre s urgery labs Performed By: #### L 500.2500, L100.0500 #### [facility] [address] [place], [address] Creatinine [Mass/Vol] 0.94 mg/dL Normal 0.55-1.02 [facility] Comment on above: Order Comment: pre s urgery labs Result Comment: The validity of the calculated GFR GFRAA in patients over 70 years has not been determined. Clinical correlation is essential. Performed By: #### L 500.2500, L100.0500 #### [facility] [address] [place], [address] EST GFR - AA 80 mL/min Normal >60 [facility] Comment on above: Order Comment: pre s urgery labs Result Comment: Afri can French GFR Calc Performed By: #### L 500.2500, L100.0500 #### [facility] [address] [place], [address] GAP 7 Normal 5-15 [facility] Comment on above: Order Comment: pre s urgery labs Performed By: #### L 500.2500, L100.0500 #### [facility] [address] [place], [address] GFR/1.73 sq M.predicted among non-blacks MDRD (S/P/Bld) [Vol rate/Area] 66 mL/min/{1.73_m2} Normal >60 [facility] Comment on above: Order Comment: pre s urgery labs Result Comment: Non- GFR Calc Performed By: #### L 500.2500, L100.0500 #### [facility] [address] [place], [address] Glucose [Mass/Vol] 110 mg/dL High 74-106 [facility] Comment on above: Order Comment: pre s urgery labs Result Comment: Fast ing Glucose result from 100 to 125 mg/dL suggests IMPAIRED HOMEOSTASIS per A.D.A. criteria. Performed By: #### L 500.2500, L100.0500 #### [facility] [address] [place], [address] Potassium [Moles/Vol] 3.6 mmol/L Normal 3.5-5.1 [facility] Comment on above: Order Comment: pre s urgery labs Performed By: #### L 500.2500, L100.0500 #### [facility] [address] [place], [address] Sodium [Moles/Vol] 137 mmol/L Normal 136-145 [facility] Comment on above: Order Comment: pre s urgery labs Performed By: #### L 500.2500, L100.0500 #### [facility] [address] [place], [address] Urea nitrogen [Mass/Vol] 11 mg/dL Normal 7-18 [facility] Comment on above: Order Comment: pre s urgery labs Performed By: #### L 500.2500, L100.0500 #### [facility] [address] [place], [address] CBC-Complete Blood Cnt No Di ffon 12-19-2023 Erythrocyte distribution width (RBC) [Ratio] 12.1 % Normal 11.6-14.6 [facility] Comment on above: Order Comment: Comme nts: pre surgery labs Performed By: #### L 500.2500, L100.0500 #### [facility] [address] [place], [address] Hematocrit (Bld) [Volume fraction] 37.8 % Normal 37-47 [facility] Comment on above: Order Comment: Comme nts: pre surgery labs Performed By: #### L 500.2500, L100.0500 #### [facility] [address] [place], [address] Hemoglobin (Bld) [Mass/Vol] 12.0 g/dL Normal 12.0-15.0 [facility] Comment on above: Order Comment: Comme nts: pre surgery labs Performed By: #### L 500.2500, L100.0500 #### [facility] [address] [place], [address] MCH (RBC) [Entitic mass] 29.2 pg Normal 27.0-32.0 [facility] Comment on above: Order Comment: Comme nts: pre surgery labs Performed By: #### L 500.2500, L100.0500 #### [facility] [address] [place], [address] MCHC (RBC) [Mass/Vol] 31.7 g/dL Low 32-36 [facility] Comment on above: Order Comment: Colby nts: pre surgery labs Performed By: #### L 500.2500, L100.0500 #### [facility] [address] [place], [address] MCV (RBC) [Entitic vol] 92.0 fL Normal 81-99 [facility] Comment on above: Order Comment: Colby nts: pre surgery labs Performed By: #### L 500.2500, L100.0500 #### [facility] [address] [place], [address] Platelet mean volume (Bld) [Entitic vol] 9.2 fL Normal 6.2-12.0 [facility] Comment on above: Order Comment: Colby nts: pre surgery labs Performed By: #### L 500.2500, L100.0500 #### [facility] [address] [place], [address] Platelets (Bld) [#/Vol] 256 10*3/uL Normal 150-450 [facility] Comment on above: Order Comment: Colby nts: pre surgery labs Performed By: #### L 500.2500, L100.0500 #### [facility] [address] [place], [address] RBC (Bld) [#/Vol] 4.11 10*6/uL Low 4.2-5.4 [facility] Comment on above: Order Comment: Colby nts: pre surgery labs Performed By: #### L 500.2500, L100.0500 #### [facility] [address] [place], [address] RDW SD 40.8 fl Normal 35.1-43.9 [facility] Comment on above: Order Comment: Colby nts: pre surgery labs Performed By: #### L 500.2500, L100.0500 #### [facility] [address] [place], [place], [address] WBC (Bld) [#/Vol] 6.0 10*3/uL Normal 4.4-11.0 [facility] Comment on above: Order Comment: Comme nts: pre surgery labs Performed By: #### L 500.2500, L100.0500 #### [facility] [facility] [address] [place], [address] Plastic Surgery Visit Report on 12-19-2023 Plastic Surgery Visit Report [facility] Plastic Reconstructive Surgery [address], [address] [place], [place] [address] OFFICE VISIT Date of Service: 12/19/23 MR#: [id number] Acct: [id number] Name: BELLE HAMM Rep #: [id number] : 1970 Provider: Dr. Teresa vu MD Age/Sex: 53/F Location: [facility] Status: Signed Intake Vital Signs 11/16/23 06:03 12/19/23 09:38 Height 5 ft 2 in 5 ft 2 in Weight: 222 lb 2 oz BMI 40.6 BP 106/71 Blood Pressure Location Lt brachial Position Sitting Respiration 16 Pulse 62 Temp 98.1 F Temp Source Oral Pulse Oximetry (%) 97 Oxygen Delivery Method room air Intake Visit Reasons: pre op #1 valdez breast reduction Chief Complaint: pre op #1 valdez breast reduction Is patient in pain?: No Allergies codeine (From Tylenol-Codeine) Allergy (Verified 12/19/23 09:39) Rash hydrocodone (From Vicodin) Allergy (Verified 12/19/23 09:39) Rash Sulfa (Sulfonamide Antibiotics) Allergy (Verified 12/19/23 09:39) Rash NSAIDS (Non-Steroidal Anti-Inflamma Adverse Reaction (Verified 12/19/23 09:39) Other Medications ???Medication ???Instructions ???Recorded ???Confirmed ???Type alprazolam 0.25 mg tablet (Xanax) 0.5 mg PO PRN PRN Anxiety 06/08/21 12/19/23 History biotin 5,000 mcg sublingual tablet 5,000 mcg sublingual DAILY 06/08/21 12/19/23 History fluoxetine 40 mg capsule (Prozac) 80 mg PO DAILY 06/08/21 12/19/23 History gabapentin 100 mg tablet 300 mg PO TID 06/08/21 12/19/23 History hydrochlorothiazide 25 mg tablet 25 mg PO DAILY 06/08/21 12/19/23 History lisinopril 20 mg tablet 20 mg PO DAILY 06/08/21 12/19/23 History metformin 1,000 mg tablet 1,000 mg PO BID 06/08/21 12/19/23 History cetirizine 10 mg tablet 10 mg PO DAILY 01/23/23 12/19/23 History pantoprazole 20 mg tablet,delayed 20 mg PO BID 07/26/23 12/19/23 History release dulaglutide 0.75 mg/0.5 mL 0.75 mg subcut MO 09/17/23 12/19/23 History subcutaneous pen injector (Trulicity) ondansetron 4 mg disintegrating 4 mg PO Q8H PRN nausea and 10/11/23 12/19/23 Rx tablet vomiting #90 tabs pantoprazole 40 mg tablet,delayed 40 mg PO BID 2 months #120 tabs 11/29/23 12/19/23 Rx release amitriptyline 25 mg tablet 25 mg PO QHS #30 TABLETS 11/30/23 12/19/23 Rx diltiazem HCl 30 mg tablet 30 mg PO QHS #30 TABLETS 11/30/23 12/19/23 Rx buspirone 5 mg tablet 5 mg PO TID 12/19/23 12/19/23 History Have you fallen in the past year?: No Nurse's Note: pt here for pre op #1 valdez breast reduction PFSH Medical History History of hiatal hernia Sleep apnea Wears glasses Anxiety Diabetes Restless legs Dietary restriction Gastric reflux Former smoker CPAP (continuous positive airway pressure) dependence Neuropathy History of echocardiogram History of stress test Hypertension Encounter for screening for malignant neoplasm of colon Surgical History History of esophagogastroduodenoscopy (EGD) Bariatric surgery status Hx of colonoscopy History of esophagogastroduodenoscopy (EGD) Hx of hernia repair History of tonsillectomy and adenoidectomy Hx of foot surgery Hx of total hysterectomy Hx of gastric bypass Hx laparoscopic cholecystectomy Family History Brother Diabetes Heart disease Social History Smoking Status: Former smoker how long ago did patient quit smoking: quit 2012 alcohol intake: never substance use type: does not use additional social history: denies vaping, denies marijuana use, denies edible, denies aspirin use denies ibuprofen HPI pre op #1 valdez breast reduction Details: Belle comes in for preop preparation regarding the upcoming breast reduction. Her last mammogram was 11/02/2023 without evidence of malignancy. She underwent EGD in 11/26 with no further intervention scheduled. I reviewed her medications with her including her semaglutide which she uses for diabetes management. She has stopped this a week prior to her previous surgical procedures. Although she is allergic to hydrocodone and nonsteroidals, she states that she can tolerate Percocet for pain management. I reviewed scheduling an appointment with her PCP to obtain medical clearance prior to surgery. Exam Details Patient with bilateral breast ptosis and hypertrophy. Her bra is worn with the back of the bra very high on her posterior shoulders to tolerate the discomfort. I reviewed breast reduction surgery with her including the incisions and scars as well as limitations after surgery. No guarantees were made as to the final size. I explained that her size is largely determined by the anatomy of the breast (more content not included)... Normal [facility] Bedside Glucoseon 11-16-2023 FINGERSTICK GLU 134 mg/dL High 74-106 [facility] Comment on above: Result Comment: RUI HERRON OF PATIENT CARE PER NURSING PROTOCOL Performed By: #### L 501.080 #### [facility] [address] [facility] [place], [place], [id number] EGD Reporton 11-16-[address] [facility] Medical Records Department [address] [place] [address] EGD Report MR#: [id number] Acct: [id number] Name: BELLE HAMM Rep #: [id number] : 1970 53 From: Moncho Carrillo DO PCP: Dr. Berenice Bowling DO Status:[facility] Patient Name: Belle Hamm Procedure Date: 11/16/2023 6:11 AM Date of : 1970 Age: 53 Procedure: Upper GI endoscopy Indications: Epigastric abdominal pain, Functional Dyspepsia, Dysphagia, Heartburn, Suspected esophageal reflux, Failure to respond to medical treatment Providers: Moncho Carrillo DO Referring MD: Berenice Bowling Medicines: Monitored Anesthesia Care Patient Profile: This is a 53 year old female. Refer to note in patient chart for documentation of history and physical. Patient has symptoms of acute abdominal cramping, acute epigastric abdominal pain, chronic dysphagia and chronic nausea. Complications: No immediate complications. Procedure: Pre-Anesthesia Assessment: - Prior to the procedure, a History and Physical was performed, and patient medications and allergies were reviewed. The patient is competent. The risks and benefits of the procedure and the sedation options and risks were discussed with the patient. All questions were answered and informed consent was obtained. Patient identification and proposed procedure were verified by the physician in the pre-procedure area. Mental Status Examination: alert and oriented. Airway Examination: normal oropharyngeal airway and neck mobility. Respiratory Examination: clear to auscultation. CV Examination: normal. Prophylactic Antibiotics: The patient does not require prophylactic antibiotics. Prior Anticoagulants: The patient has taken no anticoagulant or antiplatelet agents except for NSAID medication. ASA Grade Assessment: III - A patient with severe systemic disease. After reviewing the risks and benefits, the patient was deemed in satisfactory condition to undergo the procedure. The anesthesia plan was to use monitored anesthesia care (MAC). Immediately prior to administration of medications, the patient was re-assessed for adequacy to receive sedatives. The heart rate, respiratory rate, oxygen saturations, blood pressure, adequacy of pulmonary ventilation, and response to care were monitored throughout the procedure. The physical status of the patient was re-assessed after the procedure. After obtaining informed consent, the endoscope was passed under direct vision. Throughout the procedure, the patient's blood pressure, pulse, and oxygen saturations were monitored continuously. The Colonoscope was introduced through the mouth, and advanced to the second part of duodenum. The upper GI endoscopy was accomplished without difficulty. The patient tolerated the procedure well. Scope In: 6:47:33 AM Scope Out: 6:53:54 AM Total Procedure Duration Time 0 hours 6 minutes 21 seconds Findings: Abnormal motility was noted in the esophagus. The cricopharyngeus was abnormal. There is spasticity of the esophageal body. The distal esophagus/lower esophageal sphincter is spastic, but gives up passage to the endoscope. Secondary peristaltic waves are noted. A small hiatal hernia was present. 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 The gastrojejunal anastomosis was characterized by ulceration. This was traversed. The dyroh-yt-jrrznuy limb was characterized by healthy appearing mucosa. The jejunojejunal anastomosis was characterized by healthy appearing mucosa. The kncvcryp-fn-vhkelhu limb was not examined as it could not be found. The excluded stomach was not examined as it could not be found. Patchy mild inflammation, characterized by erosions and erythema was found in the jejunum. Biopsies were taken with a cold forceps for histology. Verification of patient identification for the specimen was done. Estimated blood loss was minimal. Impression: - Abnormal esophageal motility, established esophageal spasm. - Small hiatal hernia. 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 - Suspected jejunal inflammation characterized by erosions and erythema. Biopsied. Recommendation: - Discharge patient to home. - Resume previous diet. - Continue present medications. - Await pathology results. Procedure Code(s): --- Professional --- 37740, Esophagogastroduodenoscopy, flexible, transoral; with biopsy, single or multiple CPT copyright 2021 [employer]. All rights reserved. The codes documented in this report are preliminary and upon middle school baseball coach review may be revised to meet current compliance requirements. Moncho Carrillo DO 11/16/2023 6:59:58 AM This report has been signed electronically. Number of Addenda: 0 Note Initiated On: 11/16/2023 6:11 AM 11/16/23 0700 Date _ (more content not included)... Normal [facility] MR/POSTOP.Lucille 11-16-2023 MR/POSTOP.[facility] Medical Records Department [address] [place] [address] Anesthesia Postop Eval I 11/16/23 0704 MR#: [id number] Acct: [id number] Name: BELLE HAMM Rep #: [id number] : 1970 53 From: Diego Moore PCP: Dr. Berenice Bowling, DO Status:[facility] Y Race: C Location: [place] [address] Anesthesia: Postop Eval I Current Vital Signs Temperature: 97.1 F Pulse Rate: 69 Blood Pressure: 96/58 Respiratory Rate: 16 Pulse Ox: 96 Oxygen Delivery Method: Room Air Assessment Airway patent: Yes Spontaneous unlabored respirations: Yes Mental status: Awake nausea: No Vomiting: No Anesthesia Complication: No Fluid Hydration Crystalloid volume administer (ml): 400 Total IV fluid infused: 400 Progress Note Anesthesia document: Postop Eval 1 completed: Yes 11/16/23705 Date Diego Philip Signature: Date CC: Signed Normal [facility] MR/[id number] 11-16-2023 [facility] Medical Records Department [address] [place] [address] Anesthesia Postop Eval II 11/16/23 1545 MR#: [id number] Acct: [id number] Name: BELLE HAMM Rep #: [id number] : 1970 53 From: Gino Carter MD PCP: Dr. Berenice Bowling, DO Status:[facility] Y Race: C Location: [place] Anesthesia Postop Eval I Sum Postop Eval Completion status Anesthesia document: Postop Eval 1 completed: Yes Anesthesia Postop Eval I Summary Anesthesia Postop Eval I Summary: Anesthesia Postop Eval I: Assessment Summary Airway patent Yes 11/16/23 07:06 [email or web address] Spontaneous unlabored Yes 11/16/23 07:06 [email or web address] respirations Mental status Awake 11/16/23 07:06 [email or web address] nausea No 11/16/23 07:06 [email or web address] Vomiting No 11/16/23 07:06 [email or web address] Anesthesia Postop Eval I: Fluid Summary Crystalloid volume administer 400 11/16/23 07:06 [email or web address] (ml) Colloids volume administered ( ml) Blood Product volume administered (ml) Total IV fluid infused 400 11/16/23 07:06 [email or web address] Anesthesia Postop Eval I: Summary Notes Anesthesia Complication No 11/16/23 07:06 [email or web address] Anesthesia Complication Comment: Post-operative progress note Anesthesia: Postop Eval II Evaluation Mental status: Awake Pain Level: 0 nausea: No Vomiting: No 11/16/23 1545 Date Gino Philip Signature: Date CC: Signed Normal [facility] Surgery Specimen Level Nery 11-16-2023 Surgery Specimen Level IV -- Patient Age/Sex Location Account Attending Physician -- BELLE HAMM 53/F AMELIA [id number] Moncho Carrillo DO -- Specimen: [id number] Received: 11/16/23 Status: KARINA Garrett Num: [id number] Spec Type: EGD BIOPSY Subm Dr: DO MAURICIO YaoER OPERATION: EGD with biopsy PRE-OP DIAGNOSIS: Dysphagia, GERD, nausea, history of gastric bypass TISSUE SUBMITTED: Jejunum biopsy -- MICROSCOPIC DIAGNOSIS Jejunum, biopsy: Fragments of small intestinal mucosa, no pathologic diagnosis. Malcom 11/19/2023 MICROSCOPIC DESCRIPTION Slides are reviewed. GROSS DESCRIPTION Received in fixative is one container labeled with the patient's name and designated Jejunum biopsy. The specimen consists of multiple irregular fragments of light manrique soft tissue that in aggregate measure 1.2 x 0.3 x 0.1 cm. The specimen is totally submitted in one cassette. Malcom 11/16/2023 TC:4 CPT:39666 -- Patient Age/Sex Location Account Attending Physician -- BELLE HAMM 53/F EN [id number] Moncho Friend, DO -- Signed (signature on file) Dr. Isidro Brooks MD 11/19/23 1026 -- Normal [facility] Comment on above: Performed By: #### P SUIV #### [facility] [address] [place], [place], [address] VITAon 11-10-2023 Vitamin A Lvl 55.3 UG/DL Normal 20.1-62.0 [facility] Comment on above: Result Comment: Refe rence intervals for vitamin A determined from [facility] internal studies. Individuals with vitamin A less than 20 ug/dL are considered vitamin A deficient and those with serum concentrations less than 10 ug/dL are considered severely deficient. This test was developed and its performance characteristics determined by [facility]. It has not been cleared or approved by the Food and Drug Administration. Performed At: [address] [id number] Giuliano Good MD Ph:[phone] Performed By: #### 0 [id number] ####[address] [address] B1WBon 11-07-2023 Vitamin B1 Whl Bld 91.0 nmol/L Normal 66.5-200.0 [facility] ([place]) Comment on above: Result Comment: This test was developed and its performance characteristics determined by [facility]. It has not been cleared or approved by the Food and Drug Administration. Performed At: [facility] [address] [id number] Giuliano Good MD Ph:[phone] Performed By: #### A DIFF, GFR, CBC, A1C, ANEU, VIDH, TSH, CMP, LIPID #### [address] [address] #### B12 #### [address] [address] [place] MAMMOGRAM SCREENING BILAT ERAL W/TOMOon 11-02-2023 MA MAMMOGRAM SCREENING BILATERAL W/JARED ORIGINAL FROM: [place] [address] PROCEDURE FOR: BELLE SMITH [address] [place] [address] Home: PID#: [id number] Exam#: [id number] : 1970 Age: 53 TO: BERENICE BOWLING [place] [address] Fax: NO FAX EXAMINATION: SCREENING DIGITAL BILATERAL MAMMOGRAM WITH TOMOSYNTHESIS, 11/02/2023 11:18 am TECHNIQUE: Screening mammography of the bilateral breasts was performed with tomosynthesis. 2D standard and 3D tomosynthesis combination imaging performed through both breasts in the MLO and CC projection. Computer aided detection was utilized in the interpretation of this exam. COMPARISON: 07/20/2022, 02/21/2021 HISTORY: Breast cancer screening. FINDINGS: BREAST DENSITY: There are scattered areas of fibroglandular density. There are benign appearing calcifications in both breasts. There are no significant masses or calcifications. IMPRESSION: No mammographic evidence of malignancy. Continued screening with annual mammograms is recommended. [place] Bui risk calculations, generated with the history provided, report this patient's 10 year risk and lifetime risk for developing breast cancer at 2.0% and 7.4%, respectively. Based on this assessment tool, if the patient's calculated lifetime risk is below 20%, then the patient is considered at average risk for developing breast cancer. If the patient's calculated lifetime risk is at or above 20%, then the patient is considered high risk for developing breast cancer and may be a candidate for supplemental breast MRI screening in addition to annual mammographic screening per the [employer]. BIRADS: BI-RADS: 2: Benign RECALL: 1 year screening RECALL TYPE: mammo LETTER SENT: Normal BI-RADS 1 and 2 Interpreted by: Song Cho MD Preliminary Report By: Song Cho MD Electronically signed By Song Cho MD Dictated Date: 11/02/2023 9:28:31 PM Prelim Date: 11/02/2023 9:31:47 PM Sign Date: 11/02/2023 9:31:47 PM Ordering Provider: BERENICE BOWLING Terrazzo Worker: SHADY VALENTIN RT(R) RDMS letter sent: Normal BI-RADS 1 and 2 Mammogram BI-RADS: 2 Benign Normal [facility] ([place]) CUSon 11-01-2023 Copper Lvl 84 UG/DL Normal 80-158 [facility] ([place]) Comment on above: Result Comment: This test was developed and its performance characteristics determined by [facility]. It has not been cleared or approved by the Food and Drug Administration. Detection Limit = 5 Performed At: [address] [id number] Giuliano Good MD Ph:[phone] Performed By: #### A DIFF, GFR, CBC, A1C, ANEU, VIDH, TSH, CMP, LIPID #### [place] [id number] [place], [place] [address] #### B12 #### [facility] [address] [place] [address] ZINCon 11-01-2023 Zinc Lvl 55 UG/DL Normal 44-115 [facility] ([place]) Comment on above: Result Comment: This test was developed and its performance characteristics determined by [facility]. It has not been cleared or approved by the Food and Drug Administration. Detection Limit = 5 Performed At: [address] [id number] Giuliano Good MD Ph:[phone] Performed By: #### A DIFF, GFR, CBC, A1C, ANEU, VIDH, TSH, CMP, LIPID #### [address] [address] #### B12 #### [address] [address] .Auto Diffon 10-30-2023 Basophil, Absolute 0.0 10 3/mcL Normal 0.0-0.2 [facility] ([place] Comment on above: Performed By: #### A DIFF, GFR, CBC, A1C, ANEU, VIDH, TSH, CMP, LIPID #### [address] [address] #### B12 #### [address] [address] Basophils/100 WBC (Bld) 0.4 % Normal 0.0-2.5 [facility] ([place]) Comment on above: Performed By: #### A DIFF, GFR, CBC, A1C, ANEU, VIDH, TSH, CMP, LIPID #### [address] [address] #### B12 #### [address] [address] Eosinophil, Absolute 0.0 10 3/mcL Normal 0.0-0.4 [facility] ([place]) Comment on above: Performed By: #### A DIFF, GFR, CBC, A1C, ANEU, VIDH, TSH, CMP, LIPID #### [address] [address] #### B12 #### [address] [address] Eosinophils/100 WBC (Bld) 0.7 % Normal 0.0-7.0 [facility] ([place]) Comment on above: Performed By: #### A DIFF, GFR, CBC, A1C, ANEU, VIDH, TSH, CMP, LIPID #### [address] [address] #### B12 #### [address] [address] Lymphocyte, Absolute 2.0 10 3/mcL Normal 0.8-3.9 [facility] ([place]) Comment on above: Performed By: #### A DIFF, GFR, CBC, A1C, ANEU, VIDH, TSH, CMP, LIPID #### [place] [address] #### B12 #### [address] [address] Lymphocytes/100 WBC (Bld) 38.4 % Normal 10.0-50.0 [facility] ([place]) Comment on above: Performed By: #### A DIFF, GFR, CBC, A1C, ANEU, VIDH, TSH, CMP, LIPID #### [place] [address] #### B12 #### [address] [address] Monocyte, Absolute 0.2 10 3/mcL Normal 0.2-1.0 [facility] ([place] Comment on above: Performed By: #### A DIFF, GFR, CBC, A1C, ANEU, VIDH, TSH, CMP, LIPID #### [address] [address] #### B12 #### [address] [address] Monocytes/100 WBC (Bld) 3.3 % Normal 1.7-13.0 [facility] ([place]) Comment on above: Performed By: #### A DIFF, GFR, CBC, A1C, ANEU, VIDH, TSH, CMP, LIPID #### [place] [address] #### B12 #### [address] [address] Neutrophils/100 WBC (Bld) 57.2 % Normal 37.0-80.0 [facility] ([place]) Comment on above: Performed By: #### A DIFF, GFR, CBC, A1C, ANEU, VIDH, TSH, CMP, LIPID #### [address] [address] #### B12 #### [address] [address] .GFRon 10-30-2023 GFR 64 ml/min/1.73sqm Normal [facility] ([place]) Comment on above: Result Comment: GFR Population mean for , Non- Americans Ages 20-29 = 116 mL/min/1.73 sq.m. Ages 30-39 = 107 mL/min/1.73 sq.m. Ages 40-49 = 99 mL/min/1.73 sq.m. Ages 50-59 = 93 mL/min/1.73 sq.m. Ages 60-69 = 85 mL/min/1.73 sq.m. Ages 70+ = 75 mL/min/1.73 sq.m. Chronic Kidney Disease: Less than 60 mL/min/1.73 square meters End Stage Renal Disease: Less than 15 mL/min/1.73 square meters Performed By: #### A DIFF, GFR, CBC, A1C, ANEU, VIDH, TSH, CMP, LIPID #### [address] [address] #### B12 #### [address] [address] GFR Non- 53 ml/min/1.73sqm Normal [facility] ([place]) Comment on above: Result Comment: GFR Population mean for , Non- Americans Ages 20-29 = 116 mL/min/1.73 sq.m. Ages 30-39 = 107 mL/min/1.73 sq.m. Ages 40-49 = 99 mL/min/1.73 sq.m. Ages 50-59 = 93 mL/min/1.73 sq.m. Ages 60-69 = 85 mL/min/1.73 sq.m. Ages 70+ = 75 mL/min/1.73 sq.m. Chronic Kidney Disease: Less than 60 mL/min/1.73 square meters End Stage Renal Disease: Less than 15 mL/min/1.73 square meters Performed By: #### A DIFF, GFR, CBC, A1C, ANEU, VIDH, TSH, CMP, LIPID #### [address] [address] #### B12 #### [address] [address] .NEUABSon 10-30-2023 Neutrophil, Absolute 3.0 10 3/mcL Normal 2.9-6.2 [facility] ([place]) Comment on above: Performed By: #### A DIFF, GFR, CBC, A1C, ANEU, VIDH, TSH, CMP, LIPID #### [place] [id number] #### B12 #### [place] [address] B12on 10-30-2023 Cobalamin (Vitamin B12) [Mass/Vol] 223 pg/mL Normal 211-911 [facility] ([place]) Comment on above: Performed By: #### A DIFF, GFR, CBC, A1C, ANEU, VIDH, TSH, CMP, LIPID #### [place] [address] #### B12 #### [place] [address] CBCon 10-30-2023 Erythrocyte distribution width (RBC) [Ratio] 13.3 % Normal 11.5-14.5 [facility] ([place]) Comment on above: Performed By: #### A DIFF, GFR, CBC, A1C, ANEU, VIDH, TSH, CMP, LIPID #### [place] [address] #### B12 #### [place] [address] Hematocrit (Bld) [Volume fraction] 37.1 % Normal 37.0-47.0 [facility] ([place]) Comment on above: Performed By: #### A DIFF, GFR, CBC, A1C, ANEU, VIDH, TSH, CMP, LIPID #### [place] [address] #### B12 #### [place] [address] Hgb 12.3 G/dL Normal 12.0-16.0 [facility] ([place]) Comment on above: Performed By: #### A DIFF, GFR, CBC, A1C, ANEU, VIDH, TSH, CMP, LIPID #### [address] [address] #### B12 #### [address] [address] MCH (RBC) [Entitic mass] 30.6 pg Normal 27.0-31.2 [facility] ([place]) Comment on above: Performed By: #### A DIFF, GFR, CBC, A1C, ANEU, VIDH, TSH, CMP, LIPID #### [place] [address] #### B12 #### [place] [address] MCHC 33.1 G/dL Normal 33.0-37.0 [facility] ([place]) Comment on above: Performed By: #### A DIFF, GFR, CBC, A1C, ANEU, VIDH, TSH, CMP, LIPID #### [place] [address] #### B12 #### [place] [address] MCV (RBC) [Entitic vol] 92.6 fL Normal 80.0-94.0 [facility] ([place]) Comment on above: Performed By: #### A DIFF, GFR, CBC, A1C, ANEU, VIDH, TSH, CMP, LIPID #### [address] [address] #### B12 #### [place] [address] Platelet 233 10 3/mcL Normal 130-400 [facility] ([place]) Comment on above: Performed By: #### A DIFF, GFR, CBC, A1C, ANEU, VIDH, TSH, CMP, LIPID #### [address] [address] #### B12 #### [place] [address] Platelet mean volume (Bld) [Entitic vol] 8.2 fL Normal 7.4-10.4 [facility] ([place]) Comment on above: Performed By: #### A DIFF, GFR, CBC, A1C, ANEU, VIDH, TSH, CMP, LIPID #### [address] [address] #### B12 #### [address] [address] RBC 4.01 10 6/mcL Low 4.20-5.40 [facility] ([place]) Comment on above: Performed By: #### A DIFF, GFR, CBC, A1C, ANEU, VIDH, TSH, CMP, LIPID #### [place] [id number] #### B12 #### [address] [address] WBC 5.2 10 3/mcL Normal 4.6-10.8 [facility] ([place]) Comment on above: Performed By: #### A DIFF, GFR, CBC, A1C, ANEU, VIDH, TSH, CMP, LIPID #### [place] [address] #### B12 #### [place] [address] CMPon 10-30-2023 Albumin Level 3.6 G/dL Normal 3.5-5.0 [facility] ([place]) Comment on above: Performed By: #### A DIFF, GFR, CBC, A1C, ANEU, VIDH, TSH, CMP, LIPID #### [place] [address] #### B12 #### [place] [address] Albumin/Globulin [Mass ratio] 1.2 {ratio} Normal 1.1-2.5 [facility] ([place]) Comment on above: Performed By: #### A DIFF, GFR, CBC, A1C, ANEU, VIDH, TSH, CMP, LIPID #### [place] [address] #### B12 #### [address] [address] ALP [Catalytic activity/Vol] 92 U/L Normal 40-135 [facility] ([place]) Comment on above: Performed By: #### A DIFF, GFR, CBC, A1C, ANEU, VIDH, TSH, CMP, LIPID #### [address] [address] #### B12 #### [address] [address] ALT [Catalytic activity/Vol] 44 U/L Normal 14-59 [facility] ([place]) Comment on above: Performed By: #### A DIFF, GFR, CBC, A1C, ANEU, VIDH, TSH, CMP, LIPID #### [address] [address] #### B12 #### [address] [address] AST [Catalytic activity/Vol] 44 U/L High 10-40 [facility] ([place]) Comment on above: Performed By: #### A DIFF, GFR, CBC, A1C, ANEU, VIDH, TSH, CMP, LIPID #### [address] [address] #### B12 #### [address] [address] Bili Total 0.4 mg/dL Normal 0.2-1.0 [facility] ([place]) Comment on above: Result Comment: Use of this assay is not recommended for patients undergoing treatment with eltrombopag due to the potential for falsely elevated results. Performed By: #### A DIFF, GFR, CBC, A1C, ANEU, VIDH, TSH, CMP, LIPID #### [address] [address] #### B12 #### [address] [address] BUN/Creatinine Ratio 7 ratio Normal 7-27 [facility] ([place]) Comment on above: Performed By: #### A DIFF, GFR, CBC, A1C, ANEU, VIDH, TSH, CMP, LIPID #### [place] [address] #### B12 #### [address] [address] Calcium [Mass/Vol] 8.9 mg/dL Normal 8.4-10.2 [facility] ([place]) Comment on above: Performed By: #### A DIFF, GFR, CBC, A1C, ANEU, VIDH, TSH, CMP, LIPID #### [place] [address] #### B12 #### [address] [address] Chloride [Moles/Vol] 101 mmol/L Normal 98-107 [facility] ([place]) Comment on above: Performed By: #### A DIFF, GFR, CBC, A1C, ANEU, VIDH, TSH, CMP, LIPID #### [place] [address] #### B12 #### [place] [address] CO2 [Moles/Vol] 24 mmol/L Normal 22-29 [facility] ([place]) Comment on above: Performed By: #### A DIFF, GFR, CBC, A1C, ANEU, VIDH, TSH, CMP, LIPID #### [place] [address] #### B12 #### [address] [address] Creatinine [Mass/Vol] 1.09 mg/dL High 0.55-1.02 [facility] ([place]) Comment on above: Performed By: #### A DIFF, GFR, CBC, A1C, ANEU, VIDH, TSH, CMP, LIPID #### [place] [address] #### B12 #### [address] [address] Electrolyte Balance 13.0 mEq/L Normal 4.0-15.0 [facility] ([place]) Comment on above: Performed By: #### A DIFF, GFR, CBC, A1C, ANEU, VIDH, TSH, CMP, LIPID #### [place] [address] #### B12 #### [address] [address] Globulin 2.9 G/dL Normal [facility] ([place]) Comment on above: Performed By: #### A DIFF, GFR, CBC, A1C, ANEU, VIDH, TSH, CMP, LIPID #### [address] [address] #### B12 #### [address] [address] Glucose [Mass/Vol] 104 mg/dL Normal 70-105 [facility] ([place]) Comment on above: Performed By: #### A DIFF, GFR, CBC, A1C, ANEU, VIDH, TSH, CMP, LIPID #### [address] [address] #### B12 #### [address] [address] Potassium [Moles/Vol] 3.6 mmol/L Normal 3.5-5.1 [facility] ([place]) Comment on above: Performed By: #### A DIFF, GFR, CBC, A1C, ANEU, VIDH, TSH, CMP, LIPID #### [address] [address] #### B12 #### [address] [address] Sodium [Moles/Vol] 138 mmol/L Normal 136-145 [facility] ([place]) Comment on above: Performed By: #### A DIFF, GFR, CBC, A1C, ANEU, VIDH, TSH, CMP, LIPID #### [address] [address] #### B12 #### [address] [address] Total Protein 6.5 G/dL Normal 6.4-8.2 [facility] ([place]) Comment on above: Performed By: #### A DIFF, GFR, CBC, A1C, ANEU, VIDH, TSH, CMP, LIPID #### [place] [address] #### B12 #### [place] [address] Urea nitrogen [Mass/Vol] 8 mg/dL Normal 7-18 [facility] ([place]) Comment on above: Performed By: #### A DIFF, GFR, CBC, A1C, ANEU, VIDH, TSH, CMP, LIPID #### [address] [address] #### B12 #### [place] [address] FEon 10-30-2023 Iron [Mass/Vol] 50 ug/dL Normal 50-170 [facility] ([place]) Comment on above: Performed By: #### A DIFF, GFR, CBC, A1C, ANEU, VIDH, TSH, CMP, LIPID #### [address] [address] #### B12 #### [place] [address] Bandar 10-30-2023 Ferritin [Mass/Vol] 58.0 ng/mL Normal 8.0-252.0 [facility] ([place]) Comment on above: Performed By: #### A DIFF, GFR, CBC, A1C, ANEU, VIDH, TSH, CMP, LIPID #### [place] [address] #### B12 #### [place] [address] FOLon 10-30-2023 Folate 26.02 ng/mL High 5.38-24.00 [facility] ([place]) Comment on above: Performed By: #### A DIFF, GFR, CBC, A1C, ANEU, VIDH, TSH, CMP, LIPID #### [address] [address] #### B12 #### [place] [address] IBCon 10-30-2023 TIBC 332 mcg/dL Normal 250-450 [facility] ([place]) Comment on above: Performed By: #### A DIFF, GFR, CBC, A1C, ANEU, VIDH, TSH, CMP, LIPID #### [facility] [address] [place], [place] [address] #### B12 #### [address] [address] LABORATORYOrdered By: SYSTEM SYSTEM on 10-30-2023 25-hydroxyvitamin D3 [Mass/Vol] 41.3 ng/mL Invalid Interpretation Code AO ADM SS Comment on above: Interpretive Data: I nterpretive Values Based on Total 25(OH) Vitamin D: Deficient <20 ng/mL Insufficient 20 - <30 ng/mL Sufficient 30-100 ng/mL Albumin BCP dye [Mass/Vol] 3.6 G/dL Normal 3.5 - 5.0 G/dL AO ADM SS Albumin/Globulin [Mass ratio] 1.2 {ratio} Normal 1.1 - 2.5 ratio AO ADM SS ALP [Catalytic activity/Vol] 92 U/L Normal 40 - 135 U/L AO ADM SS ALT With P-5'-P [Catalytic activity/Vol] 44 U/L Normal 14 - 59 U/L AO ADM SS AST With P-5'-P [Catalytic activity/Vol] 44 U/L High 10 - 40 U/L AO ADM SS Basophil, Absolute 0.0 103/mcL Normal 0.0 - 0.2 10^3/mcL AO Workflow SS Basophils/100 WBC (Bld) 0.4 % Normal 0.0 - 2.5 % AO Workflow SS Bilirubin [Mass/Vol] 0.4 mg/dL Normal 0.2 - 1.0 mg/dL AO ADM SS Comment on above: Interpretive Data: U se of this assay is not recommended for patients undergoing treatment with eltrombopag due to the potential for falsely elevated results. Calcium [Mass/Vol] 8.9 mg/dL Normal 8.4 - 10. 2 mg/dL AO ADM SS Chloride [Moles/Vol] 101 mmol/L Normal 98 - 107 mmol/L AO ADM SS CO2 [Moles/Vol] 24 mmol/L Normal 22 - 29 mmol/L AO ADM SS Cobalamin (Vitamin B12) [Mass/Vol] 223 pg/mL Normal 211 - 911 pg/mL AH ADM SS Creatinine [Mass/Vol] 1.09 mg/dL High 0.55 - 1.02 mg/dL AO ADM SS Electrolyte Balance 13.0 mEq/L Normal 4.0 - 15 .0 mEq/L AO ADM SS Eosinophil, Absolute 0.0 103/mcL Normal 0.0 - 0.4 10^3/mcL AO Workflow SS Eosinophils/100 WBC (Bld) 0.7 % Normal 0.0 - 7.0 % AO Workflow SS Erythrocyte distribution width (RBC) [Ratio] 13.3 % Normal 11.5 - 14.5 % AO Workflow SS Ferritin [Mass/Vol] 58.0 ng/mL Normal 8.0 - 252.0 ng/mL AO ADM SS Folate [Mass/Vol] 26.02 ng/mL High 5.38 - 24.00 ng/mL AH ADM SS GFR/1.73 sq M.predicted among blacks MDRD (S/P/Bld) [Vol rate/Area] 64 ml/min/1.73sqm Invalid Interpretation Code AO Chemistry S Comment on above: Interpretive Data: GFR Population mean for , Non- Americans Ages 20-29 = 116 mL/min/1.73 sq.m. Ages 30-39 = 107 mL/min/1.73 sq.m. Ages 40-49 = 99 mL/min/1.73 sq.m. Ages 50-59 = 93 mL/min/1.73 sq.m. Ages 60-69 = 85 mL/min/1.73 sq.m. Ages 70+ = 75 mL/min/1.73 sq.m. Chronic Kidney Disease: Less than 60 mL/min/1.73 square meters End Stage Renal Disease: Less than 15 mL/min/1.73 square meters GFR/1.73 sq M.predicted among non-blacks MDRD (S/P/Bld) [Vol rate/Area] 53 ml/min/1.73sqm Invalid Interpretation Code AO Chemistry S Comment on above: Interpretive Data: GFR Population mean for , Non- Americans Ages 20-29 = 116 mL/min/1.73 sq.m. Ages 30-39 = 107 mL/min/1.73 sq.m. Ages 40-49 = 99 mL/min/1.73 sq.m. Ages 50-59 = 93 mL/min/1.73 sq.m. Ages 60-69 = 85 mL/min/1.73 sq.m. Ages 70+ = 75 mL/min/1.73 sq.m. Chronic Kidney Disease: Less than 60 mL/min/1.73 square meters End Stage Renal Disease: Less than 15 mL/min/1.73 square meters Globulin 2.9 G/dL Invalid Interpretation Code AO ADM SS Glucose [Mass/Vol] 104 mg/dL Normal 70 - 105 mg/dL AO ADM SS Hematocrit (Bld) [Volume fraction] 37.1 % Normal 37.0 - 47.0 % AO Workflow SS Hemoglobin (Bld) [Mass/Vol] 12.3 G/dL Normal 12.0 - 16.0 G/dL AO Workflow SS INR Coag (PPP) [Relative time] 1.0 {INR} Invalid Interpretation Code AO HemoHub SS Comment on above: Interpretive Data: Michael wade [employer] (CHEST, 1992, 102:312S-25S) recommended therapeutic range for oral anticoagulant therapy is: LOW RISK: Prophylaxis of venous thrombosis INR: 2.0-3.0 Treatment of pulmonary embolism 2.0-3.0 Prevention of systemic embolism 2.0-3.0 HIGH RISK: Mechanical prosthetic valves 2.5-3.5 Iron [Mass/Vol] 50 ug/dL Normal 50 - 170 mcg/dL AO ADM SS Iron binding capacity [Mass/Vol] 332 mcg/dL Normal 250 - 450 mcg/dL AO ADM SS Lymphocyte, Absolute 2.0 103/mcL Normal 0.8 - 3.9 10^3/mcL AO Workflow SS Lymphocytes/100 WBC (Bld) 38.4 % Normal 10.0 - 50.0 % AO Workflow SS MCH (RBC) [Entitic mass] 30.6 pg Normal 27.0 - 31.2 pg AO Workflow SS MCHC 33.1 G/dL Normal 33.0 - 37.0 G/dL AO Workflow SS MCV (RBC) [Entitic vol] 92.6 fL Normal 80.0 - 94.0 fL AO Workflow SS Monocyte, Absolute 0.2 103/mcL Normal 0.2 - 1.0 10^3/mcL AO Workflow SS Monocytes/100 WBC (Bld) 3.3 % Normal 1.7 - 13.0 % AO Workflow SS Neutrophil, Absolute 3.0 103/mcL Normal 2.9 - 6.2 10^3/mcL AO Workflow SS Neutrophils/100 WBC (Bld) 57.2 % Normal 37.0 - 80.0 % AO Workflow SS Platelet mean volume (Bld) [Entitic vol] 8.2 fL Normal 7.4 - 10.4 fL AO Workflow SS Platelets (Bld) [#/Vol] 233 103/mcL Normal 130 - 400 10^3/mcL AO Workflow SS Potassium [Moles/Vol] 3.6 mmol/L Normal 3.5 - 5.1 mmol/L AO ADM SS Protein [Mass/Vol] 6.5 G/dL Normal 6.4 - 8.2 G/dL AO ADM SS PT Coag (PPP) [Time] 10.9 s Normal 9.0 - 14.4 seconds AO HemoHub SS RBC (Bld) [#/Vol] 4.01 106/mcL Low 4.20 - 5.40 10^6/mcL AO Workflow SS Sodium [Moles/Vol] 138 mmol/L Normal 136 - 145 mmol/L AO ADM SS Urea nitrogen [Mass/Vol] 8 mg/dL Normal 7 - 18 mg/dL AO ADM SS Urea nitrogen/Creatinine [Mass ratio] 7 ratio Normal 7 - 27 ratio AO ADM SS WBC (Bld) [#/Vol] 5.2 103/mcL Normal 4.6 - 10.8 10^3/mcL AO Workflow SS LABORATORYOrdered By: Pager P CONTRIBUTOR_SYSTEM on 10-30-2023 Copper Lvl (LC) 84 UG/DL Invalid Interpretation Code AO Sendouts Comment on above: Result Comment: This test was developed and its performance characteristics determined by [facility]. It has not been cleared or approved by the Food and Drug Administration. Detection Limit = 5 Performed At: [facility] [id number] Giuliano Good MD Ph:[phone] Zinc Lvl (LC) 55 UG/DL Invalid Interpretation Code AO Sendouts SS Comment on above: Result Comment: This test was developed and its performance characteristics determined by [facility]. It has not been cleared or approved by the Food and Drug Administration. Detection Limit = 5 Performed At: [facility] [address] [id number] Giuliano Good MD Ph:[phone] PROon 10-30-2023 PT Coag (PPP) [Time] 10.9 s Normal 9.0-14.4 [facility] ([place]) Comment on above: Performed By: #### A DIFF, GFR, CBC, A1C, ANEU, VIDH, TSH, CMP, LIPID #### [address] [address] #### B12 #### [address] [address] PT International Ratio 1.0 Normal [facility] ([place]) Comment on above: Result Comment: [employer] (CHEST, 1992, 102:312S-25S) recommended therapeutic range for oral anticoagulant therapy is: LOW RISK: Prophylaxis of venous thrombosis INR: 2.0-3.0 Treatment of pulmonary embolism 2.0-3.0 Prevention of systemic embolism 2.0-3.0 HIGH RISK: Mechanical prosthetic valves 2.5-3.5 Performed By: #### A DIFF, GFR, CBC, A1C, ANEU, VIDH, TSH, CMP, LIPID #### [address] [address] #### B12 #### [address] [address] VIDHon 10-30-2023 Vit. D 25-Hydroxy 41.3 ng/mL Normal [facility] ([place]) Comment on above: Result Comment: Inte rpretive Values Based on Total 25(OH) Vitamin D: Deficient <20 ng/mL Insufficient 20 - <30 ng/mL Sufficient 30-100 ng/mL Performed By: #### A DIFF, GFR, CBC, A1C, ANEU, VIDH, TSH, CMP, LIPID #### [address] [address] #### B12 #### [address] [address] Plastic Surgery Visit Report on 10-24-2023 Plastic Surgery Visit Report [facility] Plastic Reconstructive Surgery [address] [facility], [address] [place], [place] [id number] OFFICE VISIT Date of Service: 10/24/23 MR#: [id number] Acct: [id number] Name: BELLE HAMM Rep #: [id number] : 1970 Provider: Dr. Teresa vu MD Age/Sex: 53/F Location: [facility] Status: Signed Intake Vital Signs 09/20/23 09:37 10/24/23 09:17 Height 5 ft 2 in 5 ft 2 in Weight: 225 lb 4 oz BMI 41.1 BP 110/77 Blood Pressure Location Lt brachial Position Sitting Respiration 16 Pulse 60 Temp Source Oral Pulse Oximetry (%) 95 Oxygen Delivery Method room air Intake Visit Reasons: Breast Reduction Chief Complaint: breast reduction consult Allergies codeine (From Tylenol-Codeine) Allergy (Verified 10/24/23 09:13) Rash hydrocodone (From Vicodin) Allergy (Verified 10/24/23 09:13) Rash Sulfa (Sulfonamide Antibiotics) Allergy (Verified 10/24/23 09:13) Rash Medications ???Medication ???Instructions ???Recorded ???Confirmed ???Type alprazolam 0.25 mg tablet (Xanax) 0.5 mg PO PRN PRN Anxiety 06/08/21 10/24/23 History biotin 5,000 mcg sublingual tablet 5,000 mcg sublingual DAILY 06/08/21 09/20/23 History fluoxetine 40 mg capsule (Prozac) 80 mg PO DAILY 06/08/21 10/24/23 History gabapentin 100 mg tablet 300 mg PO TID 06/08/21 10/24/23 History hydrochlorothiazide 25 mg tablet 25 mg PO DAILY 06/08/21 10/24/23 History lisinopril 20 mg tablet 20 mg PO DAILY 06/08/21 10/24/23 History metformin 1,000 mg tablet 1,000 mg PO BID 06/08/21 10/24/23 History cetirizine 10 mg tablet 10 mg PO DAILY 01/23/23 09/20/23 History pantoprazole 20 mg tablet,delayed 20 mg PO BID 07/26/23 10/24/23 History release dulaglutide 0.75 mg/0.5 mL 0.75 mg subcut QWEEK 09/17/23 10/24/23 History subcutaneous pen injector (Trulicity) amitriptyline 25 mg tablet 25 mg PO QHS #30 TABLETS 10/01/23 10/24/23 Rx diltiazem HCl 30 mg tablet 30 mg PO QHS #30 TABLETS 10/01/23 10/24/23 Rx ondansetron 4 mg disintegrating 4 mg PO Q8H PRN nausea and 10/11/23 10/24/23 Rx tablet vomiting #90 tabs PFSH Medical History History of hiatal hernia Sleep apnea Wears glasses Anxiety Diabetes Restless legs Dietary restriction Gastric reflux Former smoker CPAP (continuous positive airway pressure) dependence Neuropathy History of echocardiogram History of stress test Hypertension Encounter for screening for malignant neoplasm of colon Surgical History History of esophagogastroduodenoscopy (EGD) Bariatric surgery status Hx of colonoscopy History of esophagogastroduodenoscopy (EGD) Hx of hernia repair History of tonsillectomy and adenoidectomy Hx of foot surgery Hx of total hysterectomy Hx of gastric bypass Hx laparoscopic cholecystectomy Family History (Updated 10/24/23 @ 08:57 by Alysia Solo) Brother Diabetes Heart disease Social History (Updated 10/24/23 @ 09:05 by Alysia Solo) Smoking Status: Former smoker how long ago did patient quit smoking: quit 2012 alcohol intake: never substance use type: does not use additional social history: denies vaping, denies marijuana use, denies edible, denies aspirin use denies ibuprofen HPI Breast Reduction Details: Belle is a 53-year-old female patient presents for consideration of breast reduction. She underwent gastric bypass in 2019 with a 50 to 60 pound weight loss. She complains of neck and back problems for which she has seen a chiropractor in the past and takes Tylenol for discomfort. (She is unable to take anti-inflammatories because of her gastric bypass). She states her current bra size is 46DD. She has had 2 children which she did not breast-feed. Her last mammogram was approximately a year ago at [facility] and reportedly normal. There is no family history of breast cancer. She has a history of nicotine use but quit in 2012 (1 PPD). She states her still smokes in the home. She denies use of marijuana or edibles. She is on Trulicity for her diabetes. Exam Details Patient with postural changes consistent with the weight of her breast pulling her shoulders forward. She has noticeable hypertrophy of her trapezius. She has shoulder grooves. There are no palpable masses or axillary adenopathy. She has grade 3 ptosis. Sternal notch to N/A R-34cm; L-37.5cm; I estimate 300-350gm reduction. I reviewed the procedure of breast reduction with her including the incisions and scars as well as limitations after surgery. The expected pre-, intra, and postoperative course were reviewed. She is aware that no guarantees can be made to her final size. The size is made in proportion to her frame and existin (more content not included)... Normal [facility] No Panel Informationon 09-13 Culture Urine 10,000 - 50,000 cfu/ ml Mixed growth consistent with normal urogenital kwadwo. [facility] Work Phone: .Auto Diffon 08-24-2023 Basophil, Absolute 0.0 10 3/mcL Normal 0.0-0.2 [facility] ([place] Comment on above: Performed By: #### A DIFF, GFR, CBC, A1C, ANEU, VIDH, TSH, CMP, LIPID #### [address] [address] #### B12 #### [address] [address] Basophils/100 WBC (Bld) 0.7 % Normal 0.0-2.5 [facility] ([place]) Comment on above: Performed By: #### A DIFF, GFR, CBC, A1C, ANEU, VIDH, TSH, CMP, LIPID #### [address] [address] #### B12 #### [address] [address] Eosinophil, Absolute 0.0 10 3/mcL Normal 0.0-0.4 [facility] ([place]) Comment on above: Performed By: #### A DIFF, GFR, CBC, A1C, ANEU, VIDH, TSH, CMP, LIPID #### [address] [address] #### B12 #### [address] [address] Eosinophils/100 WBC (Bld) 0.7 % Normal 0.0-7.0 [facility] ([place]) Comment on above: Performed By: #### A DIFF, GFR, CBC, A1C, ANEU, VIDH, TSH, CMP, LIPID #### [address] [address] #### B12 #### [address] [address] Lymphocyte, Absolute 2.3 10 3/mcL Normal 0.8-3.9 [facility] ([place]) Comment on above: Performed By: #### A DIFF, GFR, CBC, A1C, ANEU, VIDH, TSH, CMP, LIPID #### [address] [address] #### B12 #### [address] [address] Lymphocytes/100 WBC (Bld) 36.0 % Normal 10.0-50.0 [facility] ([place]) Comment on above: Performed By: #### A DIFF, GFR, CBC, A1C, ANEU, VIDH, TSH, CMP, LIPID #### [place] [address] #### B12 #### [address] [address] Monocyte, Absolute 0.3 10 3/mcL Normal 0.2-1.0 [facility] ([place] Comment on above: Performed By: #### A DIFF, GFR, CBC, A1C, ANEU, VIDH, TSH, CMP, LIPID #### [place] [address] #### B12 #### [address] [address] Monocytes/100 WBC (Bld) 4.8 % Normal 1.7-13.0 [facility] ([place]) Comment on above: Performed By: #### A DIFF, GFR, CBC, A1C, ANEU, VIDH, TSH, CMP, LIPID #### [place] [address] #### B12 #### [address] [address] Neutrophils/100 WBC (Bld) 57.8 % Normal 37.0-80.0 [facility] ([place]) Comment on above: Performed By: #### A DIFF, GFR, CBC, A1C, ANEU, VIDH, TSH, CMP, LIPID #### [address] [address] #### B12 #### [address] [address] .GFRon 08-24-2023 GFR 79 ml/min/1.73sqm Normal [facility] ([place]) Comment on above: Result Comment: GFR Population mean for , Non- Americans Ages 20-29 = 116 mL/min/1.73 sq.m. Ages 30-39 = 107 mL/min/1.73 sq.m. Ages 40-49 = 99 mL/min/1.73 sq.m. Ages 50-59 = 93 mL/min/1.73 sq.m. Ages 60-69 = 85 mL/min/1.73 sq.m. Ages 70+ = 75 mL/min/1.73 sq.m. Chronic Kidney Disease: Less than 60 mL/min/1.73 square meters End Stage Renal Disease: Less than 15 mL/min/1.73 square meters Performed By: #### A DIFF, GFR, CBC, A1C, ANEU, VIDH, TSH, CMP, LIPID #### [address] [address] #### B12 #### [address] [address] GFR Non- 66 ml/min/1.73sqm Normal [facility] ([place]) Comment on above: Result Comment: GFR Population mean for , Non- Americans Ages 20-29 = 116 mL/min/1.73 sq.m. Ages 30-39 = 107 mL/min/1.73 sq.m. Ages 40-49 = 99 mL/min/1.73 sq.m. Ages 50-59 = 93 mL/min/1.73 sq.m. Ages 60-69 = 85 mL/min/1.73 sq.m. Ages 70+ = 75 mL/min/1.73 sq.m. Chronic Kidney Disease: Less than 60 mL/min/1.73 square meters End Stage Renal Disease: Less than 15 mL/min/1.73 square meters Performed By: #### A DIFF, GFR, CBC, A1C, ANEU, VIDH, TSH, CMP, LIPID #### [address] [address] #### B12 #### [address] [address] .NEUABSon 08-24-2023 Neutrophil, Absolute 3.7 10 3/mcL Normal 2.9-6.2 [facility] ([place]) Comment on above: Performed By: #### A DIFF, GFR, CBC, A1C, ANEU, VIDH, TSH, CMP, LIPID #### [address] [address] #### B12 #### [address] [address] A1Con 08-24-2023 HbA1c (Bld) [Mass fraction] 6.7 % High 4.3-6.4 [facility] ([place]) Comment on above: Performed By: #### A DIFF, GFR, CBC, A1C, ANEU, VIDH, TSH, CMP, LIPID #### [place] [address] #### B12 #### [place] [address] CBCon 08-24-2023 Erythrocyte distribution width (RBC) [Ratio] 13.1 % Normal 11.5-14.5 [facility] ([place]) Comment on above: Performed By: #### A DIFF, GFR, CBC, A1C, ANEU, VIDH, TSH, CMP, LIPID #### [address] [address] #### B12 #### [address] [address] Hematocrit (Bld) [Volume fraction] 39.7 % Normal 37.0-47.0 [facility] ([place]) Comment on above: Performed By: #### A DIFF, GFR, CBC, A1C, ANEU, VIDH, TSH, CMP, LIPID #### [place] [address] #### B12 #### [place] [address] Hgb 13.3 G/dL Normal 12.0-16.0 [facility] ([place]) Comment on above: Performed By: #### A DIFF, GFR, CBC, A1C, ANEU, VIDH, TSH, CMP, LIPID #### [place] [address] #### B12 #### [place] [address] MCH (RBC) [Entitic mass] 30.2 pg Normal 27.0-31.2 [facility] ([place]) Comment on above: Performed By: #### A DIFF, GFR, CBC, A1C, ANEU, VIDH, TSH, CMP, LIPID #### [place] [address] #### B12 #### [place] [address] MCHC 33.5 G/dL Normal 33.0-37.0 [facility] ([place]) Comment on above: Performed By: #### A DIFF, GFR, CBC, A1C, ANEU, VIDH, TSH, CMP, LIPID #### [place] [address] #### B12 #### [place] [address] MCV (RBC) [Entitic vol] 90.4 fL Normal 80.0-94.0 [facility] ([place]) Comment on above: Performed By: #### A DIFF, GFR, CBC, A1C, ANEU, VIDH, TSH, CMP, LIPID #### [place] [address] #### B12 #### [place] [address] Platelet 283 10 3/mcL Normal 130-400 [facility] ([place]) Comment on above: Performed By: #### A DIFF, GFR, CBC, A1C, ANEU, VIDH, TSH, CMP, LIPID #### [place] [address] #### B12 #### [place] [address] Platelet mean volume (Bld) [Entitic vol] 7.7 fL Normal 7.4-10.4 [facility] ([place]) Comment on above: Performed By: #### A DIFF, GFR, CBC, A1C, ANEU, VIDH, TSH, CMP, LIPID #### [place] [address] #### B12 #### [place] [address] RBC 4.39 10 6/mcL Normal 4.20-5.40 [facility] ([place]) Comment on above: Performed By: #### A DIFF, GFR, CBC, A1C, ANEU, VIDH, TSH, CMP, LIPID #### [place] [id number] #### B12 #### [place] [address] WBC 6.3 10 3/mcL Normal 4.6-10.8 [facility] ([place]) Comment on above: Performed By: #### A DIFF, GFR, CBC, A1C, ANEU, VIDH, TSH, CMP, LIPID #### [place] [id number] #### B12 #### [place] [address] CMPon 08-24-2023 Albumin Level 3.8 G/dL Normal 3.5-5.0 [facility] ([place]) Comment on above: Performed By: #### A DIFF, GFR, CBC, A1C, ANEU, VIDH, TSH, CMP, LIPID #### [place] [address] #### B12 #### [place] [address] Albumin/Globulin [Mass ratio] 1.1 {ratio} Normal 1.1-2.5 [facility] ([place]) Comment on above: Performed By: #### A DIFF, GFR, CBC, A1C, ANEU, VIDH, TSH, CMP, LIPID #### [address] [address] #### B12 #### [address] [address] ALP [Catalytic activity/Vol] 85 U/L Normal 40-135 [facility] ([place]) Comment on above: Performed By: #### A DIFF, GFR, CBC, A1C, ANEU, VIDH, TSH, CMP, LIPID #### [place] [id number] #### B12 #### [address] [address] ALT [Catalytic activity/Vol] 37 U/L Normal 14-59 [facility] ([place]) Comment on above: Performed By: #### A DIFF, GFR, CBC, A1C, ANEU, VIDH, TSH, CMP, LIPID #### [place] [address] #### B12 #### [place] [address] AST [Catalytic activity/Vol] 31 U/L Normal 10-40 [facility] ([place]) Comment on above: Performed By: #### A DIFF, GFR, CBC, A1C, ANEU, VIDH, TSH, CMP, LIPID #### [place] [id number] #### B12 #### [address] [address] Bili Total 0.5 mg/dL Normal 0.2-1.0 [facility] ([place]) Comment on above: Result Comment: Use of this assay is not recommended for patients undergoing treatment with eltrombopag due to the potential for falsely elevated results. Performed By: #### A DIFF, GFR, CBC, A1C, ANEU, VIDH, TSH, CMP, LIPID #### [place] [id number] #### B12 #### [place] [address] BUN/Creatinine Ratio 14 ratio Normal 7-27 [facility] ([place]) Comment on above: Performed By: #### A DIFF, GFR, CBC, A1C, ANEU, VIDH, TSH, CMP, LIPID #### [address] [address] #### B12 #### [address] [address] Calcium [Mass/Vol] 9.1 mg/dL Normal 8.4-10.2 [facility] ([place]) Comment on above: Performed By: #### A DIFF, GFR, CBC, A1C, ANEU, VIDH, TSH, CMP, LIPID #### [place] [address] #### B12 #### [address] [address] Chloride [Moles/Vol] 101 mmol/L Normal 98-107 [facility] ([place]) Comment on above: Performed By: #### A DIFF, GFR, CBC, A1C, ANEU, VIDH, TSH, CMP, LIPID #### [place] [id number] #### B12 #### [address] [address] CO2 [Moles/Vol] 29 mmol/L Normal 22-29 [facility] ([place]) Comment on above: Performed By: #### A DIFF, GFR, CBC, A1C, ANEU, VIDH, TSH, CMP, LIPID #### [place] [id number] #### B12 #### [address] [address] Creatinine [Mass/Vol] 0.90 mg/dL Normal 0.55-1.02 [facility] ([place]) Comment on above: Performed By: #### A DIFF, GFR, CBC, A1C, ANEU, VIDH, TSH, CMP, LIPID #### [place] [address] #### B12 #### [address] [address] Electrolyte Balance 8.0 mEq/L Normal 4.0-15.0 [facility] ([place]) Comment on above: Performed By: #### A DIFF, GFR, CBC, A1C, ANEU, VIDH, TSH, CMP, LIPID #### [address] [address] #### B12 #### [address] [address] Globulin 3.4 G/dL Normal [facility] ([place]) Comment on above: Performed By: #### A DIFF, GFR, CBC, A1C, ANEU, VIDH, TSH, CMP, LIPID #### [place] [address] #### B12 #### [address] [address] Glucose [Mass/Vol] 132 mg/dL High 70-105 [facility] ([place]) Comment on above: Performed By: #### A DIFF, GFR, CBC, A1C, ANEU, VIDH, TSH, CMP, LIPID #### [place] [id number] #### B12 #### [address] [address] Potassium [Moles/Vol] 4.2 mmol/L Normal 3.5-5.1 [facility] ([place]) Comment on above: Performed By: #### A DIFF, GFR, CBC, A1C, ANEU, VIDH, TSH, CMP, LIPID #### [address] [address] #### B12 #### [address] [address] Sodium [Moles/Vol] 138 mmol/L Normal 136-145 [facility] ([place]) Comment on above: Performed By: #### A DIFF, GFR, CBC, A1C, ANEU, VIDH, TSH, CMP, LIPID #### [address] [address] #### B12 #### [address] [address] Total Protein 7.2 G/dL Normal 6.4-8.2 [facility] ([place]) Comment on above: Performed By: #### A DIFF, GFR, CBC, A1C, ANEU, VIDH, TSH, CMP, LIPID #### [address] [address] #### B12 #### [address] [address] Urea nitrogen [Mass/Vol] 13 mg/dL Normal 7-18 [facility] ([place]) Comment on above: Performed By: #### A DIFF, GFR, CBC, A1C, ANEU, VIDH, TSH, CMP, LIPID #### [address] [address] #### B12 #### [address] [address] LABORATORYOrdered By: SYSTEM SYSTEM on 08-24-2023 25-hydroxyvitamin D3 [Mass/Vol] 46.8 ng/mL Invalid Interpretation Code AO ADM SS Comment on above: Interpretive Data: I nterpretive Values Based on Total 25(OH) Vitamin D: Deficient <20 ng/mL Insufficient 20 - <30 ng/mL Sufficient 30-100 ng/mL Albumin BCP dye [Mass/Vol] 3.8 G/dL Normal 3.5 - 5.0 G/dL AO ADM SS Albumin/Globulin [Mass ratio] 1.1 {ratio} Normal 1.1 - 2.5 ratio AO ADM SS ALP [Catalytic activity/Vol] 85 U/L Normal 40 - 135 U/L AO ADM SS ALT With P-5'-P [Catalytic activity/Vol] 37 U/L Normal 14 - 59 U/L AO ADM SS AST With P-5'-P [Catalytic activity/Vol] 31 U/L Normal 10 - 40 U/L AO ADM SS Basophil, Absolute 0.0 103/mcL Normal 0.0 - 0.2 10^3/mcL AO Workflow SS Basophils/100 WBC (Bld) 0.7 % Normal 0.0 - 2.5 % AO Workflow SS Bilirubin [Mass/Vol] 0.5 mg/dL Normal 0.2 - 1.0 mg/dL AO ADM SS Comment on above: Interpretive Data: U se of this assay is not recommended for patients undergoing treatment with eltrombopag due to the potential for falsely elevated results. Calcium [Mass/Vol] 9.1 mg/dL Normal 8.4 - 10. 2 mg/dL AO ADM SS Chloride [Moles/Vol] 101 mmol/L Normal 98 - 107 mmol/L AO ADM SS CO2 [Moles/Vol] 29 mmol/L Normal 22 - 29 mmol/L AO ADM SS Creatinine [Mass/Vol] 0.90 mg/dL Normal 0.55 - 1.02 mg/dL AO ADM SS Electrolyte Balance 8.0 mEq/L Normal 4.0 - 15 .0 mEq/L AO ADM SS Eosinophil, Absolute 0.0 103/mcL Normal 0.0 - 0.4 10^3/mcL AO Workflow SS Eosinophils/100 WBC (Bld) 0.7 % Normal 0.0 - 7.0 % AO Workflow SS Erythrocyte distribution width (RBC) [Ratio] 13.1 % Normal 11.5 - 14.5 % AO Workflow SS GFR/1.73 sq M.predicted among blacks MDRD (S/P/Bld) [Vol rate/Area] 79 ml/min/1.73sqm Invalid Interpretation Code AO Chemistry S Comment on above: Interpretive Data: GFR Population mean for , Non- Americans Ages 20-29 = 116 mL/min/1.73 sq.m. Ages 30-39 = 107 mL/min/1.73 sq.m. Ages 40-49 = 99 mL/min/1.73 sq.m. Ages 50-59 = 93 mL/min/1.73 sq.m. Ages 60-69 = 85 mL/min/1.73 sq.m. Ages 70+ = 75 mL/min/1.73 sq.m. Chronic Kidney Disease: Less than 60 mL/min/1.73 square meters End Stage Renal Disease: Less than 15 mL/min/1.73 square meters GFR/1.73 sq M.predicted among non-blacks MDRD (S/P/Bld) [Vol rate/Area] 66 ml/min/1.73sqm Invalid Interpretation Code AO Chemistry S Comment on above: Interpretive Data: GFR Population mean for , Non- Americans Ages 20-29 = 116 mL/min/1.73 sq.m. Ages 30-39 = 107 mL/min/1.73 sq.m. Ages 40-49 = 99 mL/min/1.73 sq.m. Ages 50-59 = 93 mL/min/1.73 sq.m. Ages 60-69 = 85 mL/min/1.73 sq.m. Ages 70+ = 75 mL/min/1.73 sq.m. Chronic Kidney Disease: Less than 60 mL/min/1.73 square meters End Stage Renal Disease: Less than 15 mL/min/1.73 square meters Globulin 3.4 G/dL Invalid Interpretation Code AO ADM SS Glucose [Mass/Vol] 132 mg/dL High 70 - 105 mg/dL AO ADM SS HbA1c (Bld) [Mass fraction] 6.7 % High 4.3 - 6.4 % AO ADM SS Hematocrit (Bld) [Volume fraction] 39.7 % Normal 37.0 - 47.0 % AO Workflow SS Hemoglobin (Bld) [Mass/Vol] 13.3 G/dL Normal 12.0 - 16.0 G/dL AO Workflow SS Lymphocyte, Absolute 2.3 103/mcL Normal 0.8 - 3.9 10^3/mcL AO Workflow SS Lymphocytes/100 WBC (Bld) 36.0 % Normal 10.0 - 50.0 % AO Workflow SS MCH (RBC) [Entitic mass] 30.2 pg Normal 27.0 - 31.2 pg AO Workflow SS MCHC 33.5 G/dL Normal 33.0 - 37.0 G/dL AO Workflow SS MCV (RBC) [Entitic vol] 90.4 fL Normal 80.0 - 94.0 fL AO Workflow SS Monocyte, Absolute 0.3 103/mcL Normal 0.2 - 1.0 10^3/mcL AO Workflow SS Monocytes/100 WBC (Bld) 4.8 % Normal 1.7 - 13.0 % AO Workflow SS Neutrophil, Absolute 3.7 103/mcL Normal 2.9 - 6.2 10^3/mcL AO Workflow SS Neutrophils/100 WBC (Bld) 57.8 % Normal 37.0 - 80.0 % AO Workflow SS Platelet mean volume (Bld) [Entitic vol] 7.7 fL Normal 7.4 - 10.4 fL AO Workflow SS Platelets (Bld) [#/Vol] 283 103/mcL Normal 130 - 400 10^3/mcL AO Workflow SS Potassium [Moles/Vol] 4.2 mmol/L Normal 3.5 - 5.1 mmol/L AO ADM SS Protein [Mass/Vol] 7.2 G/dL Normal 6.4 - 8.2 G/dL AO ADM SS RBC (Bld) [#/Vol] 4.39 106/mcL Normal 4.20 - 5.40 10^6/mcL AO Workflow SS Sodium [Moles/Vol] 138 mmol/L Normal 136 - 145 mmol/L AO ADM SS TSH Qn 1.57 m[IU]/L Normal 0.36 - 3.74 mcIU/mL AO ADM SS Urea nitrogen [Mass/Vol] 13 mg/dL Normal 7 - 18 mg/dL AO ADM SS Urea nitrogen/Creatinine [Mass ratio] 14 ratio Normal 7 - 27 ratio AO ADM SS WBC (Bld) [#/Vol] 6.3 103/mcL Normal 4.6 - 10.8 10^3/mcL AO Workflow SS LABORATORYOrdered By: Jeanna Lund on 08-24-2023 Cholesterol [Mass/Vol] 251 mg/dL High 0 - 200 mg/dL AO ADM SS Comment on above: Interpretive Data: C holesterol Reference Interval: Less than 200 Desirable 200-239 Borderline high risk 240 and above High risk Cholesterol in HDL [Mass/Vol] 84 mg/dL High 40 - 60 mg/dL AO ADM SS Cholesterol in LDL [Mass/Vol] 147 mg/dL High 0 - 130 mg/dL AO ADM SS Triglyceride [Mass/Vol] 101 mg/dL Normal 0 - 150 mg/dL AO ADM SS Comment on above: Interpretive Data: T riglyceride Reference Interval: Less than 150 Normal 150-199 Borderline high risk 200-499 High risk 500 or higher Very high risk LABORATORYOrdered By: Viola Hilliard on 08-24-2023 Albumin DL <= 20 mg/L (U) [Mass/Vol] 1100 mcg/dL Invalid Interpretation Code AO ADM SS Albumin/Creatinine DL <= 20 mg/L (U) [Mass ratio] 4 mcg/mg Normal 0 - 30 mcg/mg AO ADM SS Creatinine (U) [Mass/Vol] 254.2 mg/dL High 28.0 - 117.0 mg/dL AO ADM SS LIPIDon 08-24-2023 Cholesterol [Mass/Vol] 251 mg/dL High 0-200 [facility] ([place]) Comment on above: Result Comment: Chol esterol Reference Interval: Less than 200 Desirable 200-239 Borderline high risk 240 and above High risk Performed By: #### A DIFF, GFR, CBC, A1C, ANEU, VIDH, TSH, CMP, LIPID #### [address] [id number] #### B12 #### [address] [address] Cholesterol in HDL [Mass/Vol] 84 mg/dL High 40-60 [facility] ([place]) Comment on above: Performed By: #### A DIFF, GFR, CBC, A1C, ANEU, VIDH, TSH, CMP, LIPID #### [address] [address] #### B12 #### [address] [address] Cholesterol in LDL [Mass/Vol] 147 mg/dL High 0-130 [facility] ([place]) Comment on above: Performed By: #### A DIFF, GFR, CBC, A1C, ANEU, VIDH, TSH, CMP, LIPID #### [address] [address] #### B12 #### [address] [address] Triglyceride [Mass/Vol] 101 mg/dL Normal 0-150 [facility] ([place]) Comment on above: Result Comment: Trig lyceride Reference Interval: Less than 150 Normal 150-199 Borderline high risk 200-499 High risk 500 or higher Very high risk Performed By: #### A DIFF, GFR, CBC, A1C, ANEU, VIDH, TSH, CMP, LIPID #### [address] [address] #### B12 #### [address] [address] MALBRon 08-24-2023 U Creatinine 254.2 mg/dL High 28.0-117.0 [facility] ([place]) Comment on above: Performed By: #### A DIFF, GFR, CBC, A1C, ANEU, VIDH, TSH, CMP, LIPID #### [address] [address] #### B12 #### [address] [address] U Microalb 1100 mcg/dL Normal [facility] ([place]) Comment on above: Performed By: #### A DIFF, GFR, CBC, A1C, ANEU, VIDH, TSH, CMP, LIPID #### [address] [address] #### B12 #### [address] [address] U Ratio Alb/Cre 4 mcg/mg Normal 0-30 [facility] ([place]) Comment on above: Performed By: #### A DIFF, GFR, CBC, A1C, ANEU, VIDH, TSH, CMP, LIPID #### [address] [address] #### B12 #### [place] [address] TSHon 08-24-2023 TSH Qn 1.57 m[IU]/L Normal 0.36-3.74 [facility] ([place]) Comment on above: Performed By: #### A DIFF, GFR, CBC, A1C, ANEU, VIDH, TSH, CMP, LIPID #### [place] [id number] #### B12 #### [address] [address] VIDHon 08-24-2023 Vit. D 25-Hydroxy 46.8 ng/mL Normal [facility] ([place]) Comment on above: Result Comment: Inte rpretive Values Based on Total 25(OH) Vitamin D: Deficient <20 ng/mL Insufficient 20 - <30 ng/mL Sufficient 30-100 ng/mL Performed By: #### A DIFF, GFR, CBC, A1C, ANEU, VIDH, TSH, CMP, LIPID #### [address] [address] #### B12 #### [address] [address] .Auto Diffon 02-27-2023 Basophil, Absolute 0.0 10 3/mcL Normal 0.0-0.2 [facility] ([place] Comment on above: Performed By: #### A DIFF, GFR, CBC, A1C, ANEU, VIDH, TSH, CMP, LIPID #### [place] [id number] #### B12 #### [address] [address] Basophils/100 WBC (Bld) 0.4 % Normal 0.0-2.5 [facility] ([place]) Comment on above: Performed By: #### A DIFF, GFR, CBC, A1C, ANEU, VIDH, TSH, CMP, LIPID #### [address] [address] #### B12 #### [address] [address] Eosinophil, Absolute 0.0 10 3/mcL Normal 0.0-0.4 [facility] ([place]) Comment on above: Performed By: #### A DIFF, GFR, CBC, A1C, ANEU, VIDH, TSH, CMP, LIPID #### [address] [address] #### B12 #### [address] [address] Eosinophils/100 WBC (Bld) 0.0 % Normal 0.0-7.0 [facility] ([place]) Comment on above: Performed By: #### A DIFF, GFR, CBC, A1C, ANEU, VIDH, TSH, CMP, LIPID #### [address] [address] #### B12 #### [address] [address] Lymphocyte, Absolute 4.7 10 3/mcL High 0.8-3.9 [facility] ([place]) Comment on above: Performed By: #### A DIFF, GFR, CBC, A1C, ANEU, VIDH, TSH, CMP, LIPID #### [place] [address] #### B12 #### [address] [address] Lymphocytes/100 WBC (Bld) 40.7 % Normal 10.0-50.0 [facility] ([place]) Comment on above: Performed By: #### A DIFF, GFR, CBC, A1C, ANEU, VIDH, TSH, CMP, LIPID #### [address] [address] #### B12 #### [address] [address] Monocyte, Absolute 0.7 10 3/mcL Normal 0.2-1.0 [facility] [place] Comment on above: Performed By: #### A DIFF, GFR, CBC, A1C, ANEU, VIDH, TSH, CMP, LIPID #### [address] [address] #### B12 #### [address] [address] Monocytes/100 WBC (Bld) 6.2 % Normal 1.7-13.0 [facility] ([place]) Comment on above: Performed By: #### A DIFF, GFR, CBC, A1C, ANEU, VIDH, TSH, CMP, LIPID #### [address] [address] #### B12 #### [address] [address] Neutrophils/100 WBC (Bld) 52.7 % Normal 37.0-80.0 [facility] ([place]) Comment on above: Performed By: #### A DIFF, GFR, CBC, A1C, ANEU, VIDH, TSH, CMP, LIPID #### [address] [address] #### B12 #### [address] [address] .GFRon 02-27-2023 GFR 71 ml/min/1.73sqm Normal [facility] ([place]) Comment on above: Result Comment: GFR Population mean for , Non- Americans Ages 20-29 = 116 mL/min/1.73 sq.m. Ages 30-39 = 107 mL/min/1.73 sq.m. Ages 40-49 = 99 mL/min/1.73 sq.m. Ages 50-59 = 93 mL/min/1.73 sq.m. Ages 60-69 = 85 mL/min/1.73 sq.m. Ages 70+ = 75 mL/min/1.73 sq.m. Chronic Kidney Disease: Less than 60 mL/min/1.73 square meters End Stage Renal Disease: Less than 15 mL/min/1.73 square meters Performed By: #### A DIFF, GFR, CBC, A1C, ANEU, VIDH, TSH, CMP, LIPID #### [address] [address] #### B12 #### [address] [address] GFR Non- 58 ml/min/1.73sqm Normal [facility] ([place]) Comment on above: Result Comment: GFR Population mean for , Non- Americans Ages 20-29 = 116 mL/min/1.73 sq.m. Ages 30-39 = 107 mL/min/1.73 sq.m. Ages 40-49 = 99 mL/min/1.73 sq.m. Ages 50-59 = 93 mL/min/1.73 sq.m. Ages 60-69 = 85 mL/min/1.73 sq.m. Ages 70+ = 75 mL/min/1.73 sq.m. Chronic Kidney Disease: Less than 60 mL/min/1.73 square meters End Stage Renal Disease: Less than 15 mL/min/1.73 square meters Performed By: #### A DIFF, GFR, CBC, A1C, ANEU, VIDH, TSH, CMP, LIPID #### [address] [address] #### B12 #### [address] [address] .NEUABSon 02-27-2023 Neutrophil, Absolute 6.1 10 3/mcL Normal 2.9-6.2 [facility] ([place]) Comment on above: Performed By: #### A DIFF, GFR, CBC, A1C, ANEU, VIDH, TSH, CMP, LIPID #### [address] [address] #### B12 #### [address] [address] A1Con 02-27-2023 HbA1c (Bld) [Mass fraction] 7.3 % High 4.3-6.4 [facility] ([place]) Comment on above: Performed By: #### A DIFF, GFR, CBC, A1C, ANEU, VIDH, TSH, CMP, LIPID #### [address] [address] #### B12 #### [address] [address] B12on 02-27-2023 Cobalamin (Vitamin B12) [Mass/Vol] 259 pg/mL Normal 211-911 [facility] ([place]) Comment on above: Performed By: #### A DIFF, GFR, CBC, A1C, ANEU, VIDH, TSH, CMP, LIPID #### [address] [address] #### B12 #### [address] [address] CBCon 02-27-2023 Erythrocyte distribution width (RBC) [Ratio] 13.1 % Normal 11.5-14.5 [facility] ([place]) Comment on above: Performed By: #### A DIFF, GFR, CBC, A1C, ANEU, VIDH, TSH, CMP, LIPID #### [address] [address] #### B12 #### [address] [address] Hematocrit (Bld) [Volume fraction] 40.7 % Normal 37.0-47.0 [facility] ([place]) Comment on above: Performed By: #### A DIFF, GFR, CBC, A1C, ANEU, VIDH, TSH, CMP, LIPID #### [address] [address] #### B12 #### [address] [address] Hgb 13.6 G/dL Normal 12.0-16.0 [facility] ([place]) Comment on above: Performed By: #### A DIFF, GFR, CBC, A1C, ANEU, VIDH, TSH, CMP, LIPID #### [address] [address] #### B12 #### [address] [address] MCH (RBC) [Entitic mass] 29.7 pg Normal 27.0-31.2 [facility] ([place]) Comment on above: Performed By: #### A DIFF, GFR, CBC, A1C, ANEU, VIDH, TSH, CMP, LIPID #### [place] [address] #### B12 #### [place] [address] MCHC 33.4 G/dL Normal 33.0-37.0 [facility] ([place]) Comment on above: Performed By: #### A DIFF, GFR, CBC, A1C, ANEU, VIDH, TSH, CMP, LIPID #### [place] [address] #### B12 #### [place] [address] MCV (RBC) [Entitic vol] 88.9 fL Normal 80.0-94.0 [facility] ([place]) Comment on above: Performed By: #### A DIFF, GFR, CBC, A1C, ANEU, VIDH, TSH, CMP, LIPID #### [place] [address] #### B12 #### [place] [address] Platelet 272 10 3/mcL Normal 130-400 [facility] ([place]) Comment on above: Performed By: #### A DIFF, GFR, CBC, A1C, ANEU, VIDH, TSH, CMP, LIPID #### [place] [address] #### B12 #### [place] [address] Platelet mean volume (Bld) [Entitic vol] 7.3 fL Low 7.4-10.4 [facility] ([place]) Comment on above: Performed By: #### A DIFF, GFR, CBC, A1C, ANEU, VIDH, TSH, CMP, LIPID #### [place] [address] #### B12 #### [address] [address] RBC 4.58 10 6/mcL Normal 4.20-5.40 [facility] ([place]) Comment on above: Performed By: #### A DIFF, GFR, CBC, A1C, ANEU, VIDH, TSH, CMP, LIPID #### [address] [address] #### B12 #### [place] [address] WBC 11.6 10 3/mcL High 4.6-10.8 [facility] ([place]) Comment on above: Performed By: #### A DIFF, GFR, CBC, A1C, ANEU, VIDH, TSH, CMP, LIPID #### [place] [address] #### B12 #### [place] [address] CMPon 02-27-2023 Albumin Level 3.9 G/dL Normal 3.5-5.0 [facility] ([place]) Comment on above: Performed By: #### A DIFF, GFR, CBC, A1C, ANEU, VIDH, TSH, CMP, LIPID #### [place] [address] #### B12 #### [place] [address] Albumin/Globulin [Mass ratio] 1.1 {ratio} Normal 1.1-2.5 [facility] ([place]) Comment on above: Performed By: #### A DIFF, GFR, CBC, A1C, ANEU, VIDH, TSH, CMP, LIPID #### [place] [address] #### B12 #### [place] [address] ALP [Catalytic activity/Vol] 102 U/L Normal 40-135 [facility] ([place]) Comment on above: Performed By: #### A DIFF, GFR, CBC, A1C, ANEU, VIDH, TSH, CMP, LIPID #### [place] [address] #### B12 #### [address] [address] ALT [Catalytic activity/Vol] 45 U/L Normal 14-59 [facility] ([place]) Comment on above: Performed By: #### A DIFF, GFR, CBC, A1C, ANEU, VIDH, TSH, CMP, LIPID #### [address] [address] #### B12 #### [address] [address] AST [Catalytic activity/Vol] 38 U/L Normal 10-40 [facility] ([place]) Comment on above: Performed By: #### A DIFF, GFR, CBC, A1C, ANEU, VIDH, TSH, CMP, LIPID #### [place] [address] #### B12 #### [address] [address] Bili Total 0.4 mg/dL Normal 0.2-1.0 [facility] ([place]) Comment on above: Result Comment: Use of this assay is not recommended for patients undergoing treatment with eltrombopag due to the potential for falsely elevated results. Performed By: #### A DIFF, GFR, CBC, A1C, ANEU, VIDH, TSH, CMP, LIPID #### [address] [address] #### B12 #### [address] [address] BUN/Creatinine Ratio 27 ratio Normal 7-27 [facility] ([place]) Comment on above: Performed By: #### A DIFF, GFR, CBC, A1C, ANEU, VIDH, TSH, CMP, LIPID #### [address] [address] #### B12 #### [address] [address] Calcium [Mass/Vol] 9.7 mg/dL Normal 8.4-10.2 [facility] ([place]) Comment on above: Performed By: #### A DIFF, GFR, CBC, A1C, ANEU, VIDH, TSH, CMP, LIPID #### [address] [address] #### B12 #### [address] [address] Chloride [Moles/Vol] 100 mmol/L Normal 98-107 [facility] ([place]) Comment on above: Performed By: #### A DIFF, GFR, CBC, A1C, ANEU, VIDH, TSH, CMP, LIPID #### [address] [address] #### B12 #### [address] [address] CO2 [Moles/Vol] 30 mmol/L High 22-29 [facility] ([place]) Comment on above: Performed By: #### A DIFF, GFR, CBC, A1C, ANEU, VIDH, TSH, CMP, LIPID #### [place] [address] #### B12 #### [place] [address] Creatinine [Mass/Vol] 1.00 mg/dL Normal 0.55-1.02 [facility] ([place]) Comment on above: Performed By: #### A DIFF, GFR, CBC, A1C, ANEU, VIDH, TSH, CMP, LIPID #### [place] [address] #### B12 #### [address] [address] Electrolyte Balance 8.0 mEq/L Normal 4.0-15.0 [facility] ([place]) Comment on above: Performed By: #### A DIFF, GFR, CBC, A1C, ANEU, VIDH, TSH, CMP, LIPID #### [address] [address] #### B12 #### [address] [address] Globulin 3.7 G/dL Normal [facility] ([place]) Comment on above: Performed By: #### A DIFF, GFR, CBC, A1C, ANEU, VIDH, TSH, CMP, LIPID #### [place] [address] #### B12 #### [address] [address] Glucose [Mass/Vol] 139 mg/dL High 70-105 [facility] ([place]) Comment on above: Performed By: #### A DIFF, GFR, CBC, A1C, ANEU, VIDH, TSH, CMP, LIPID #### [address] [address] #### B12 #### [address] [address] Potassium [Moles/Vol] 3.5 mmol/L Normal 3.5-5.1 [facility] ([place]) Comment on above: Performed By: #### A DIFF, GFR, CBC, A1C, ANEU, VIDH, TSH, CMP, LIPID #### [address] [id number] #### B12 #### [address] [address] Sodium [Moles/Vol] 138 mmol/L Normal 136-145 [facility] ([place]) Comment on above: Performed By: #### A DIFF, GFR, CBC, A1C, ANEU, VIDH, TSH, CMP, LIPID #### [address] [id number] #### B12 #### [address] [address] Total Protein 7.6 G/dL Normal 6.4-8.2 [facility] ([place]) Comment on above: Performed By: #### A DIFF, GFR, CBC, A1C, ANEU, VIDH, TSH, CMP, LIPID #### [address] [id number] #### B12 #### [address] [address] Urea nitrogen [Mass/Vol] 27 mg/dL High 7-18 [facility] ([place]) Comment on above: Performed By: #### A DIFF, GFR, CBC, A1C, ANEU, VIDH, TSH, CMP, LIPID #### [address] [id number] #### B12 #### [address] [address] LABORATORYOrdered By: SYSTEM SYSTEM on 02-27-2023 25-hydroxyvitamin D3 [Mass/Vol] 51.5 ng/mL Invalid Interpretation Code AO ADM SS Comment on above: Interpretive Data: I nterpretive Values Based on Total 25(OH) Vitamin D: Deficient <20 ng/mL Insufficient 20 - <30 ng/mL Sufficient 30-100 ng/mL Albumin BCP dye [Mass/Vol] 3.9 G/dL Normal 3.5 - 5.0 G/dL AO ADM SS Albumin/Globulin [Mass ratio] 1.1 {ratio} Normal 1.1 - 2.5 ratio AO ADM SS ALP [Catalytic activity/Vol] 102 U/L Normal 40 - 135 U/L AO ADM SS ALT With P-5'-P [Catalytic activity/Vol] 45 U/L Normal 14 - 59 U/L AO ADM SS AST With P-5'-P [Catalytic activity/Vol] 38 U/L Normal 10 - 40 U/L AO ADM SS Basophil, Absolute 0.0 103/mcL Normal 0.0 - 0.2 10^3/mcL AO Workflow SS Basophils/100 WBC (Bld) 0.4 % Normal 0.0 - 2.5 % AO Workflow SS Bilirubin [Mass/Vol] 0.4 mg/dL Normal 0.2 - 1.0 mg/dL AO ADM SS Comment on above: Interpretive Data: U se of this assay is not recommended for patients undergoing treatment with eltrombopag due to the potential for falsely elevated results. Calcium [Mass/Vol] 9.7 mg/dL Normal 8.4 - 10. 2 mg/dL AO ADM SS Chloride [Moles/Vol] 100 mmol/L Normal 98 - 107 mmol/L AO ADM SS CO2 [Moles/Vol] 30 mmol/L High 22 - 29 mmol/L AO ADM SS Cobalamin (Vitamin B12) [Mass/Vol] 259 pg/mL Normal 211 - 911 pg/mL AH ADM SS Creatinine [Mass/Vol] 1.00 mg/dL Normal 0.55 - 1.02 mg/dL AO ADM SS Electrolyte Balance 8.0 mEq/L Normal 4.0 - 15 .0 mEq/L AO ADM SS Eosinophil, Absolute 0.0 103/mcL Normal 0.0 - 0.4 10^3/mcL AO Workflow SS Eosinophils/100 WBC (Bld) 0.0 % Normal 0.0 - 7.0 % AO Workflow SS Erythrocyte distribution width (RBC) [Ratio] 13.1 % Normal 11.5 - 14.5 % AO Workflow SS GFR/1.73 sq M.predicted among blacks MDRD (S/P/Bld) [Vol rate/Area] 71 ml/min/1.73sqm Invalid Interpretation Code AO Chemistry S Comment on above: Interpretive Data: GFR Population mean for , Non- Americans Ages 20-29 = 116 mL/min/1.73 sq.m. Ages 30-39 = 107 mL/min/1.73 sq.m. Ages 40-49 = 99 mL/min/1.73 sq.m. Ages 50-59 = 93 mL/min/1.73 sq.m. Ages 60-69 = 85 mL/min/1.73 sq.m. Ages 70+ = 75 mL/min/1.73 sq.m. Chronic Kidney Disease: Less than 60 mL/min/1.73 square meters End Stage Renal Disease: Less than 15 mL/min/1.73 square meters GFR/1.73 sq M.predicted among non-blacks MDRD (S/P/Bld) [Vol rate/Area] 58 ml/min/1.73sqm Invalid Interpretation Code AO Chemistry S Comment on above: Interpretive Data: GFR Population mean for , Non- Americans Ages 20-29 = 116 mL/min/1.73 sq.m. Ages 30-39 = 107 mL/min/1.73 sq.m. Ages 40-49 = 99 mL/min/1.73 sq.m. Ages 50-59 = 93 mL/min/1.73 sq.m. Ages 60-69 = 85 mL/min/1.73 sq.m. Ages 70+ = 75 mL/min/1.73 sq.m. Chronic Kidney Disease: Less than 60 mL/min/1.73 square meters End Stage Renal Disease: Less than 15 mL/min/1.73 square meters Globulin 3.7 G/dL Invalid Interpretation Code AO ADM SS Glucose [Mass/Vol] 139 mg/dL High 70 - 105 mg/dL AO ADM SS HbA1c (Bld) [Mass fraction] 7.3 % High 4.3 - 6.4 % AO ADM SS Hematocrit (Bld) [Volume fraction] 40.7 % Normal 37.0 - 47.0 % AO Workflow SS Hemoglobin (Bld) [Mass/Vol] 13.6 G/dL Normal 12.0 - 16.0 G/dL AO Workflow SS Lymphocyte, Absolute 4.7 103/mcL High 0.8 - 3.9 10^3/mcL AO Workflow SS Lymphocytes/100 WBC (Bld) 40.7 % Normal 10.0 - 50.0 % AO Workflow SS MCH (RBC) [Entitic mass] 29.7 pg Normal 27.0 - 31.2 pg AO Workflow SS MCHC 33.4 G/dL Normal 33.0 - 37.0 G/dL AO Workflow SS MCV (RBC) [Entitic vol] 88.9 fL Normal 80.0 - 94.0 fL AO Workflow SS Monocyte, Absolute 0.7 103/mcL Normal 0.2 - 1.0 10^3/mcL AO Workflow SS Monocytes/100 WBC (Bld) 6.2 % Normal 1.7 - 13.0 % AO Workflow SS Neutrophil, Absolute 6.1 103/mcL Normal 2.9 - 6.2 10^3/mcL AO Workflow SS Neutrophils/100 WBC (Bld) 52.7 % Normal 37.0 - 80.0 % AO Workflow SS Platelet mean volume (Bld) [Entitic vol] 7.3 fL Low 7.4 - 10.4 fL AO Workflow SS Platelets (Bld) [#/Vol] 272 103/mcL Normal 130 - 400 10^3/mcL AO Workflow SS Potassium [Moles/Vol] 3.5 mmol/L Normal 3.5 - 5.1 mmol/L AO ADM SS Protein [Mass/Vol] 7.6 G/dL Normal 6.4 - 8.2 G/dL AO ADM SS RBC (Bld) [#/Vol] 4.58 106/mcL Normal 4.20 - 5.40 10^6/mcL AO Workflow SS Sodium [Moles/Vol] 138 mmol/L Normal 136 - 145 mmol/L AO ADM SS TSH Qn 1.79 m[IU]/L Normal 0.36 - 3.74 mcIU/mL AO ADM SS Urea nitrogen [Mass/Vol] 27 mg/dL High 7 - 18 mg/dL AO ADM SS Urea nitrogen/Creatinine [Mass ratio] 27 ratio Normal 7 - 27 ratio AO ADM SS WBC (Bld) [#/Vol] 11.6 103/mcL High 4.6 - 10.8 10^3/mcL AO Workflow SS LABORATORYOrdered By: Regina Fang on 02-27-2023 Cholesterol [Mass/Vol] 240 mg/dL High 0 - 200 mg/dL AO ADM SS Comment on above: Interpretive Data: C holesterol Reference Interval: Less than 200 Desirable 200-239 Borderline high risk 240 and above High risk Cholesterol in HDL [Mass/Vol] 94 mg/dL High 40 - 60 mg/dL AO ADM SS Cholesterol in LDL [Mass/Vol] 123 mg/dL Normal 0 - 130 mg/dL AO ADM SS Triglyceride [Mass/Vol] 113 mg/dL Normal 0 - 150 mg/dL AO ADM SS Comment on above: Interpretive Data: T riglyceride Reference Interval: Less than 150 Normal 150-199 Borderline high risk 200-499 High risk 500 or higher Very high risk LIPIDon 02-27-2023 Cholesterol [Mass/Vol] 240 mg/dL High 0-200 [facility] ([place]) Comment on above: Result Comment: Chol esterol Reference Interval: Less than 200 Desirable 200-239 Borderline high risk 240 and above High risk Performed By: #### A DIFF, GFR, CBC, A1C, ANEU, VIDH, TSH, CMP, LIPID #### [address] [address] #### B12 #### [address] [address] Cholesterol in HDL [Mass/Vol] 94 mg/dL High 40-60 [facility] ([place]) Comment on above: Performed By: #### A DIFF, GFR, CBC, A1C, ANEU, VIDH, TSH, CMP, LIPID #### [address] [address] #### B12 #### [address] [address] Cholesterol in LDL [Mass/Vol] 123 mg/dL Normal 0-130 [facility] ([place]) Comment on above: Performed By: #### A DIFF, GFR, CBC, A1C, ANEU, VIDH, TSH, CMP, LIPID #### [address] [address] #### B12 #### [address] [address] Triglyceride [Mass/Vol] 113 mg/dL Normal 0-150 [facility] ([place]) Comment on above: Result Comment: Trig lyceride Reference Interval: Less than 150 Normal 150-199 Borderline high risk 200-499 High risk 500 or higher Very high risk Performed By: #### A DIFF, GFR, CBC, A1C, ANEU, VIDH, TSH, CMP, LIPID #### [address] [address] #### B12 #### [place] [id number] TSHon 02-27-2023 TSH Qn 1.79 m[IU]/L Normal 0.36-3.74 [facility] ([place]) Comment on above: Performed By: #### A DIFF, GFR, CBC, A1C, ANEU, VIDH, TSH, CMP, LIPID #### [address] [address] #### B12 #### [address] [address] VIDHon 02-27-2023 Vit. D 25-Hydroxy 51.5 ng/mL Normal [facility] ([place]) Comment on above: Result Comment: Inte rpretive Values Based on Total 25(OH) Vitamin D: Deficient <20 ng/mL Insufficient 20 - <30 ng/mL Sufficient 30-100 ng/mL Performed By: #### A DIFF, GFR, CBC, A1C, ANEU, VIDH, TSH, CMP, LIPID #### [address] [address] #### B12 #### [address] [address] Glucose Glucometer (BldC) [M ass/Vol]Ordered By: Moncho Carrillo on 01-30-2023 Glucose [Mass/Vol] 122 mg/dL 74-106 [facility] Comment on above: MANAGEMENT OF PATIEN T CARE PER NURSING PROTOCOL No Panel Informationon 06-01 -2023 Culture Wound Aerobe No growth at 48 hours. [facility] Work Phone: GS Rare Gram Positive C occi Rare Gram Positive Rods [facility] Work Phone: LABORATORYOrdered By: SYSTEM SYSTEM on 07-13-2022 25-hydroxyvitamin D3 [Mass/Vol] 53.0 ng/mL Invalid Interpretation Code AO ADM SS Albumin BCP dye [Mass/Vol] 3.6 G/dL Invalid Interpretation Code 3.5 - 5.0 G/dL AO ADM SS Albumin/Globulin [Mass ratio] 1.1 {ratio} Invalid Interpretation Code 1.1 - 2.5 ratio AO ADM SS ALP [Catalytic activity/Vol] 92 U/L Invalid Interpretation Code 40 - 135 U/L AO ADM SS ALT With P-5'-P [Catalytic activity/Vol] 36 U/L Invalid Interpretation Code 14 - 59 U/L AO ADM SS AST With P-5'-P [Catalytic activity/Vol] 36 U/L Invalid Interpretation Code 10 - 40 U/L AO ADM SS Bilirubin [Mass/Vol] 0.3 mg/dL Invalid Interpretation Code 0.2 - 1.0 mg/dL AO ADM SS Calcium [Mass/Vol] 9.1 mg/dL Invalid Interpretation Code 8.4 - 10.2 mg/dL AO ADM SS Chloride [Moles/Vol] 101 mmol/L Invalid Interpretation Code 98 - 107 mmol/L AO ADM SS CO2 [Moles/Vol] 30 mmol/L Invalid Interpretation Code 22 - 29 mmol/L AO ADM SS Creatinine [Mass/Vol] 0.80 mg/dL Invalid Interpretation Code 0.55 - 1.02 mg/dL AO ADM SS Electrolyte Balance 9.0 mEq/L Invalid Interpretation Code 4.0 - 15.0 mEq/L AO ADM SS GFR/1.73 sq M.predicted among blacks MDRD (S/P/Bld) [Vol rate/Area] 92 ml/min/1.73sqm Invalid Interpretation Code AO Chemistry S GFR/1.73 sq M.predicted among non-blacks MDRD (S/P/Bld) [Vol rate/Area] 76 ml/min/1.73sqm Invalid Interpretation Code AO Chemistry S Globulin 3.2 G/dL Invalid Interpretation Code AO ADM SS Glucose [Mass/Vol] 128 mg/dL Invalid Interpretation Code 70 - 105 mg/dL AO ADM SS Potassium [Moles/Vol] 4.1 mmol/L Invalid Interpretation Code 3.5 - 5.1 mmol/L AO ADM SS Protein [Mass/Vol] 6.8 G/dL Invalid Interpretation Code 6.4 - 8.2 G/dL AO ADM SS Sodium [Moles/Vol] 140 mmol/L Invalid Interpretation Code 136 - 145 mmol/L AO ADM SS TSH Qn 1.69 m[IU]/L Invalid Interpretation Code 0.36 - 3.74 mcIU/mL AO ADM SS Urea nitrogen [Mass/Vol] 18 mg/dL Invalid Interpretation Code 7 - 18 mg/dL AO ADM SS Urea nitrogen/Creatinine [Mass ratio] 22 ratio Invalid Interpretation Code 7 - 27 ratio AO ADM SS LABORATORYOrdered By: Jeanna Lund on 07-13-2022 Basophil, Absolute 0.0 103/mcL Invalid Interpretation Code 0.0 - 0.2 10^3/mcL AO Workflow SS Basophils/100 WBC (Bld) 0.5 % Invalid Interpretation Code 0.0 - 2.5 % AO Workflow SS Eosinophil, Absolute 0.1 103/mcL Invalid Interpretation Code 0.0 - 0.4 10^3/mcL AO Workflow SS Eosinophils/100 WBC (Bld) 1.0 % Invalid Interpretation Code 0.0 - 7.0 % AO Workflow SS Erythrocyte distribution width (RBC) [Ratio] 13.0 % Invalid Interpretation Code 11.5 - 14.5 % AO Workflow SS Hematocrit (Bld) [Volume fraction] 37.9 % Invalid Interpretation Code 37.0 - 47.0 % AO Workflow SS Hemoglobin (Bld) [Mass/Vol] 12.8 G/dL Invalid Interpretation Code 12.0 - 16.0 G/dL AO Workflow SS Lymphocyte, Absolute 2.5 103/mcL Invalid Interpretation Code 0.8 - 3.9 10^3/mcL AO Workflow SS Lymphocytes/100 WBC (Bld) 41.6 % Invalid Interpretation Code 10.0 - 50.0 % AO Workflow SS MCH (RBC) [Entitic mass] 30.2 pg Invalid Interpretation Code 27.0 - 31.2 pg AO Workflow SS MCHC 33.7 G/dL Invalid Interpretation Code 33.0 - 37.0 G/dL AO Workflow SS MCV (RBC) [Entitic vol] 89.7 fL Invalid Interpretation Code 80.0 - 94.0 fL AO Workflow SS Monocyte, Absolute 0.3 103/mcL Invalid Interpretation Code 0.2 - 1.0 10^3/mcL AO Workflow SS Monocytes/100 WBC (Bld) 5.5 % Invalid Interpretation Code 1.7 - 13.0 % AO Workflow SS Neutrophil, Absolute 3.1 103/mcL Invalid Interpretation Code 2.9 - 6.2 10^3/mcL AO Workflow SS Neutrophils/100 WBC (Bld) 51.4 % Invalid Interpretation Code 37.0 - 80.0 % AO Workflow SS Platelet mean volume (Bld) [Entitic vol] 8.4 fL Invalid Interpretation Code 7.4 - 10.4 fL AO Workflow SS Platelets (Bld) [#/Vol] 259 103/mcL Invalid Interpretation Code 130 - 400 10^3/mcL AO Workflow SS RBC (Bld) [#/Vol] 4.22 106/mcL Invalid Interpretation Code 4.20 - 5.40 10^6/mcL AO Workflow SS WBC (Bld) [#/Vol] 6.0 103/mcL Invalid Interpretation Code 4.6 - 10.8 10^3/mcL AO Workflow SS LABORATORYOrdered By: Hammad Hameed on 07-13-2022 Cholesterol [Mass/Vol] 230 mg/dL Invalid Interpretation Code 0 - 200 mg/dL AO ADM SS Cholesterol in HDL [Mass/Vol] 66 mg/dL Invalid Interpretation Code 40 - 60 mg/dL AO ADM SS Cholesterol in LDL [Mass/Vol] 127 mg/dL Invalid Interpretation Code 0 - 130 mg/dL AO ADM SS Triglyceride [Mass/Vol] 187 mg/dL Invalid Interpretation Code 0 - 150 mg/dL AO ADM SS LABORATORYOrdered By: Marta Britt on 12-16-2021 Blood Glucose Testing Reason Routine (12/16/21 7:41 AM) [facility] Work Phone: Glucose [Mass/Vol] 109 mg/dL Invalid Interpretation Code 70 - 110 mg/dL [facility] Work Phone: LABORATORYOrdered By: Argenis Farfan on 12-07-2021 Albumin BCP dye [Mass/Vol] 4.0 G/dL Invalid Interpretation Code 3.5 - 5.0 G/dL AO ADM SS Albumin/Globulin [Mass ratio] 1.4 {ratio} Invalid Interpretation Code 1.1 - 2.5 ratio AO ADM SS ALP [Catalytic activity/Vol] 97 U/L Invalid Interpretation Code 40 - 135 U/L AO ADM SS ALT With P-5'-P [Catalytic activity/Vol] 52 U/L Invalid Interpretation Code 14 - 59 U/L AO ADM SS AST With P-5'-P [Catalytic activity/Vol] 39 U/L Invalid Interpretation Code 10 - 40 U/L AO ADM SS Basophil, Absolute 0.0 103/mcL Invalid Interpretation Code 0.0 - 0.2 10^3/mcL AO Workflow SS Basophils/100 WBC (Bld) 0.5 % Invalid Interpretation Code 0.0 - 2.5 % AO Workflow SS Bilirubin [Mass/Vol] 0.5 mg/dL Invalid Interpretation Code 0.2 - 1.0 mg/dL AO ADM SS Calcium [Mass/Vol] 9.3 mg/dL Invalid Interpretation Code 8.4 - 10.2 mg/dL AO ADM SS Chloride [Moles/Vol] 100 mmol/L Invalid Interpretation Code 98 - 107 mmol/L AO ADM SS CO2 [Moles/Vol] 29 mmol/L Invalid Interpretation Code 22 - 29 mmol/L AO ADM SS Creatinine [Mass/Vol] 0.77 mg/dL Invalid Interpretation Code 0.55 - 1.02 mg/dL AO ADM SS Electrolyte Balance 8.0 mEq/L Invalid Interpretation Code 4.0 - 15.0 mEq/L AO ADM SS Eosinophil, Absolute 0.1 103/mcL Invalid Interpretation Code 0.0 - 0.4 10^3/mcL AO Workflow SS Eosinophils/100 WBC (Bld) 1.2 % Invalid Interpretation Code 0.0 - 7.0 % AO Workflow SS Erythrocyte distribution width (RBC) [Ratio] 12.6 % Invalid Interpretation Code 11.5 - 14.5 % AO Workflow SS Globulin 2.9 G/dL Invalid Interpretation Code AO ADM SS Glucose [Mass/Vol] 137 mg/dL Invalid Interpretation Code 70 - 105 mg/dL AO ADM SS Hematocrit (Bld) [Volume fraction] 39.0 % Invalid Interpretation Code 37.0 - 47.0 % AO Workflow SS Hemoglobin (Bld) [Mass/Vol] 13.2 G/dL Invalid Interpretation Code 12.0 - 16.0 G/dL AO Workflow SS Lymphocyte, Absolute 2.2 103/mcL Invalid Interpretation Code 0.8 - 3.9 10^3/mcL AO Workflow SS Lymphocytes/100 WBC (Bld) 39.2 % Invalid Interpretation Code 10.0 - 50.0 % AO Workflow SS MCH (RBC) [Entitic mass] 30.4 pg Invalid Interpretation Code 27.0 - 31.2 pg AO Workflow SS MCHC 33.9 G/dL Invalid Interpretation Code 33.0 - 37.0 G/dL AO Workflow SS MCV (RBC) [Entitic vol] 89.8 fL Invalid Interpretation Code 80.0 - 94.0 fL AO Workflow SS Monocyte, Absolute 0.3 103/mcL Invalid Interpretation Code 0.2 - 1.0 10^3/mcL AO Workflow SS Monocytes/100 WBC (Bld) 5.9 % Invalid Interpretation Code 1.7 - 13.0 % AO Workflow SS Neutrophil, Absolute 2.9 103/mcL Invalid Interpretation Code 2.9 - 6.2 10^3/mcL AO Workflow SS Neutrophils/100 WBC (Bld) 53.2 % Invalid Interpretation Code 37.0 - 80.0 % AO Workflow SS Platelet mean volume (Bld) [Entitic vol] 7.6 fL Invalid Interpretation Code 7.4 - 10.4 fL AO Workflow SS Platelets (Bld) [#/Vol] 226 103/mcL Invalid Interpretation Code 130 - 400 10^3/mcL AO Workflow SS Potassium [Moles/Vol] 4.3 mmol/L Invalid Interpretation Code 3.5 - 5.1 mmol/L AO ADM SS Protein [Mass/Vol] 6.9 G/dL Invalid Interpretation Code 6.4 - 8.2 G/dL AO ADM SS RBC (Bld) [#/Vol] 4.34 106/mcL Invalid Interpretation Code 4.20 - 5.40 10^6/mcL AO Workflow SS Sodium [Moles/Vol] 137 mmol/L Invalid Interpretation Code 136 - 145 mmol/L AO ADM SS Urea nitrogen [Mass/Vol] 11 mg/dL Invalid Interpretation Code 7 - 18 mg/dL AO ADM SS Urea nitrogen/Creatinine [Mass ratio] 14 ratio Invalid Interpretation Code 7 - 27 ratio AO ADM SS WBC (Bld) [#/Vol] 5.5 103/mcL Invalid Interpretation Code 4.6 - 10.8 10^3/mcL AO Workflow SS LABORATORYOrdered By: SYSTEM SYSTEM on 12-07-2021 GFR 96 ml/min/1.73sqm Invalid Interpretation Code AO Chemistry S GFR Non- 79 ml/min/1.73sqm Invalid Interpretation Code AO Chemistry S LABORATORYOrdered By: Argenis Farfan on 08-31-2021 Albumin BCP dye [Mass/Vol] 3.8 G/dL Invalid Interpretation Code 3.5 - 5.0 G/dL AO ADM SS Albumin/Globulin [Mass ratio] 1.3 {ratio} Invalid Interpretation Code 1.1 - 2.5 ratio AO ADM SS ALP [Catalytic activity/Vol] 75 U/L Invalid Interpretation Code 40 - 135 U/L AO ADM SS ALT With P-5'-P [Catalytic activity/Vol] 33 U/L Invalid Interpretation Code 14 - 59 U/L AO ADM SS AST With P-5'-P [Catalytic activity/Vol] 37 U/L Invalid Interpretation Code 10 - 40 U/L AO ADM SS Bilirubin [Mass/Vol] 0.5 mg/dL Invalid Interpretation Code 0.2 - 1.0 mg/dL AO ADM SS Calcium [Mass/Vol] 9.2 mg/dL Invalid Interpretation Code 8.4 - 10.2 mg/dL AO ADM SS Chloride [Moles/Vol] 103 mmol/L Invalid Interpretation Code 98 - 107 mmol/L AO ADM SS Cholesterol [Mass/Vol] 229 mg/dL Invalid Interpretation Code 0 - 200 mg/dL AO ADM SS Cholesterol in HDL [Mass/Vol] 71 mg/dL Invalid Interpretation Code 40 - 60 mg/dL AO ADM SS Cholesterol in LDL [Mass/Vol] 136 mg/dL Invalid Interpretation Code 0 - 130 mg/dL AO ADM SS CO2 [Moles/Vol] 30 mmol/L Invalid Interpretation Code 22 - 29 mmol/L AO ADM SS Creatinine [Mass/Vol] 0.86 mg/dL Invalid Interpretation Code 0.55 - 1.02 mg/dL AO ADM SS Electrolyte Balance 8.0 mEq/L Invalid Interpretation Code 4.0 - 15.0 mEq/L AO ADM SS Globulin 2.9 G/dL Invalid Interpretation Code AO ADM SS Glucose [Mass/Vol] 130 mg/dL Invalid Interpretation Code 70 - 105 mg/dL AO ADM SS Potassium [Moles/Vol] 4.2 mmol/L Invalid Interpretation Code 3.5 - 5.1 mmol/L AO ADM SS Protein [Mass/Vol] 6.7 G/dL Invalid Interpretation Code 6.4 - 8.2 G/dL AO ADM SS Sodium [Moles/Vol] 141 mmol/L Invalid Interpretation Code 136 - 145 mmol/L AO ADM SS Triglyceride [Mass/Vol] 108 mg/dL Invalid Interpretation Code 0 - 150 mg/dL AO ADM SS Urea nitrogen [Mass/Vol] 16 mg/dL Invalid Interpretation Code 7 - 18 mg/dL AO ADM SS Urea nitrogen/Creatinine [Mass ratio] 19 ratio Invalid Interpretation Code 7 - 27 ratio AO ADM SS Vit. D 25-Hydroxy 70.7 ng/mL Invalid Interpretation Code AO ADM SS LABORATORYOrdered By: Hammad Hameed on 08-31-2021 Basophil, Absolute 0.0 103/mcL Invalid Interpretation Code 0.0 - 0.2 10^3/mcL AO Workflow SS Basophils/100 WBC (Bld) 0.6 % Invalid Interpretation Code 0.0 - 2.5 % AO Workflow SS Eosinophil, Absolute 0.0 103/mcL Invalid Interpretation Code 0.0 - 0.4 10^3/mcL AO Workflow SS Eosinophils/100 WBC (Bld) 0.9 % Invalid Interpretation Code 0.0 - 7.0 % AO Workflow SS Erythrocyte distribution width (RBC) [Ratio] 12.7 % Invalid Interpretation Code 11.5 - 14.5 % AO Workflow SS Hematocrit (Bld) [Volume fraction] 36.9 % Invalid Interpretation Code 37.0 - 47.0 % AO Workflow SS Hemoglobin (Bld) [Mass/Vol] 12.6 G/dL Invalid Interpretation Code 12.0 - 16.0 G/dL AO Workflow SS Lymphocyte, Absolute 2.2 103/mcL Invalid Interpretation Code 0.8 - 3.9 10^3/mcL AO Workflow SS Lymphocytes/100 WBC (Bld) 40.7 % Invalid Interpretation Code 10.0 - 50.0 % AO Workflow SS MCH (RBC) [Entitic mass] 30.6 pg Invalid Interpretation Code 27.0 - 31.2 pg AO Workflow SS MCHC 34.3 G/dL Invalid Interpretation Code 33.0 - 37.0 G/dL AO Workflow SS MCV (RBC) [Entitic vol] 89.1 fL Invalid Interpretation Code 80.0 - 94.0 fL AO Workflow SS Monocyte, Absolute 0.2 103/mcL Invalid Interpretation Code 0.2 - 1.0 10^3/mcL AO Workflow SS Monocytes/100 WBC (Bld) 3.8 % Invalid Interpretation Code 1.7 - 13.0 % AO Workflow SS Neutrophil, Absolute 2.9 103/mcL Invalid Interpretation Code 2.9 - 6.2 10^3/mcL AO Workflow SS Neutrophils/100 WBC (Bld) 54.0 % Invalid Interpretation Code 37.0 - 80.0 % AO Workflow SS Platelet mean volume (Bld) [Entitic vol] 8.5 fL Invalid Interpretation Code 7.4 - 10.4 fL AO Workflow SS Platelets (Bld) [#/Vol] 218 103/mcL Invalid Interpretation Code 130 - 400 10^3/mcL AO Workflow SS RBC (Bld) [#/Vol] 4.14 106/mcL Invalid Interpretation Code 4.20 - 5.40 10^6/mcL AO Workflow SS WBC 5.4 103/mcL Invalid Interpretation Code 4.6 - 10.8 10^3/mcL AO Workflow SS LABORATORYOrdered By: SYSTEM SYSTEM on 08-31-2021 GFR 84 ml/min/1.73sqm Invalid Interpretation Code AO Chemistry S GFR Non- 70 ml/min/1.73sqm Invalid Interpretation Code AO Chemistry S Monocyte distribution width Auto (Bld) [Entitic vol] Not Performed 1 *NA* (08/31/21 11:37 AM) Invalid Interpretation Code 0.00 - 20.00 AO Hematology S Comment on above: Result Comment: MDW testing performed only on adult ER patients between the ages of 18-89 years. LABORATORYOrdered By: Leona Mendsoa on 08-31-2021 HbA1c (Bld) [Mass fraction] 6.9 % Invalid Interpretation Code 4.3 - 6.4 % AO ADM SS Glucose Glucometer (BldC) [M ass/Vol]on 06-13-2021 Glucose [Mass/Vol] 146 mg/dL 74-106 [facility] Work Phone: Comment on above: MANAGEMENT OF PATIEN T CARE PER NURSING PROTOCOL No Panel Informationon 04-19 Culture Urine <10,000 cfu/ml. No Significant growth. Sensitivity not indicated. [facility] Work Phone: MSCon 02-21-2021 [facility] REPORT Normal [facility] [place] [facility] [place]ICE: HISTORY OF PRESENT ILLNESS: Patient is a 50-year-old female presenting to [facility] today for left ear pain and some sinus congestion as well. Symptoms started about 3 days ago. She did have ear tubes placed in the left ear about 2 to 3 weeks ago, and she did not call her ears, nose, and throat since the onset of ear pain. Denies any fevers, sweats, chills. No chest pain. No shortness of breath. No nausea or vomiting. PAST MEDICAL HISTORY: Diabetes, hypertension, and ulcers. ALLERGIES: SULFA, TYLENOL WITH CODEINE, AND VICODIN. MEDICATIONS: 1. Metformin. 2. Hydrochlorothiazide. 3. Lisinopril. 4. Zyrtec. 5. Fluoxetine. PHYSICAL EXAMINATION: Vital signs: Reviewed and stable. General: Well-appearing, nontoxic, in no apparent distress. Cardiovascular: Regular rate and rhythm. No murmurs. Respiratory: Lungs sound clear to auscultation bilaterally. No [facility] PATIENT NAME: BELLE SMITH [address] [place] MEDICAL REC #: [id number] [place] [address] [facility] REPORT [facility] PHYSICIAN respiratory distress. HEENT: Bilateral TMs clear, noninjected. Tympanic tube noted, left TM. Nasal mucosal erythema and edema. Clear rhinorrhea. Posterior pharynx: Postnasal drip. No tonsillar hypertrophy or exudate present. No maxillary sinus tenderness or frontal sinus tenderness. CLINICAL IMPRESSION: 1. Nasal congestion. 2. Left otalgia. PLAN: Prescription for Flonase sent to pharmacy. Discussed Tylenol and ibuprofen, increased oral hydration. Continue Zyrtec. Follow up with ears, nose, and throat. Agreeable with plan. No other questions or concerns. Bradley Reynolds CNP /[id number] SSI File#: [id number] END OF DOCUMENT / CHANGE LOG FOLLOWS Last Edited By Elec. Signed By [facility] PATIENT NAME: BELLE SMITH Wilda [place] MEDICAL REC #: [id number] [place] [address] [facility] REPORT [facility] PHYSICIAN Bradley Reynolds PASTE UP WORKER #MOYCO Bradley Reynolds CNP #MOYCO on 02/27/2021 09:09 ET on 02/27/2021 09:09 ET Revision Number - 2 Verified/Reviewed by 02/27/21 0909 KASH [facility] PATIENT NAME: BELLE SMITH Wilda [place] MEDICAL REC #: [id number] [place] [address] [facility] REPORT [facility] PHYSICIAN Normal [facility] RF UGI w/o KUB w/ or w/o Del ay Flmon 01-22-2020 RF UGI w/o KUB w/ or w/o Delay Flm Patient Name: BELLE SMITH Fluoroscopy Exam Date/Time 01/22/2020 09:08:58 EST Exam RF UGI w/o KUB and w/ or w/o Delay Flm Ordering Physician [id number] EdwinaMILLA CAMPOORY Accession Number [id number] CTP4 Codes 48800 () Reason For Exam Heartburn Report AIR CONTRAST UGI SERIES CLINICAL INDICATIONS: Heartburn. Dysphagia. History of gastric bypass surgery July 2018. Patient has hiatal hernia. COMPARISON: 07/25/2018 FLUOROSCOPY TIME: 0.38minutes. FLUOROSCOPIC EXPOSURES: 50 TECHNIQUE: Biphasic exam was performed with barium and air. FINDINGS: Barium and air are administered. The esophagus is studied in the upright as well as the horizontal positions. The esophagus is normal in course and caliber. There is a small hiatal hernia with spontaneous gastroesophageal reflux. Barium flows freely from the esophagus into the gastric pouch. There has been gastric bypass with Cristian-en-Y configuration. The gastric pouch is unremarkable. The gastrojejunostomy is patent without signs of narrowing or obstruction. The visualized proximal jejunum is unremarkable. IMPRESSION: Small hiatus hernia with spontaneous gastroesophageal reflux. Changes consistent with gastric bypass. Report Dictated on Final Dictated: 01/22/2020 12:02 pm Dictating Physician: MD RODRIGUES JOHN Signed Date and Time: 01/22/2020 3:05 pm Signed by: MD RODRIGUES JOHN Transcribed Date and Time: 01/22/2020 2:42 Normal [facility] CBCon 07-19-2019 Erythrocyte distribution width (RBC) [Ratio] 12.8 % 11.5 - 14.5 % [place], [place] Hematocrit (Bld) [Volume fraction] 40.4 % 35 - 47 % [place], [place] Hemoglobin (Bld) [Mass/Vol] 13.8 g/dL 11.7 - 16 g/dL [place], [place] MCH (RBC) [Entitic mass] 30.8 pg 26 - 34 pg [place], [place] MCHC (RBC) [Mass/Vol] 34.0 % 32 - 36 % [place], [place] MCV (RBC) [Entitic vol] 90.6 fL 79 - 98 fL [place], [place] Platelet mean volume (Bld) [Entitic vol] 8.6 fL 7.4 - 10.4 fL [place] Platelets (Bld) [#/Vol] 199 10*3/uL 140 - 440 10*3/uL [place] RBC (Bld) [#/Vol] 4.46 10*6/uL 3.8 - 5.2 10*6/uL [place], [place] WBC (Bld) [#/Vol] 5.1 10*3/uL 3.6 - 10.7 10*3/uL [place], [place] Test Performed by [facility], [address] [place] [id number] [place], [place] Comprehensive Metabolic Pane thomas 07-19-2019 Albumin [Mass/Vol] 4.4 g/dL 3.5 - 5 g/dL [place] ALP [Catalytic activity/Vol] 109 U/L 38 - 126 U/L [place] ALT [Catalytic activity/Vol] 36 U/L High 0 - 34 U/L [place] Comment on above: The ALT test is perf ormed by an updated assay method. Please note that the reference intervals have been changed and are now sex specific. Anion gap [Moles/Vol] 11 mmol/L [place] AST [Catalytic activity/Vol] 49 U/L High 15 - 46 U/L [place] Bilirubin Ql (U) 0.5 mg/dL 0.2 - 1.3 mg/dL [place] Calcium [Mass/Vol] 9.5 mg/dL 8.4 - 10. 4 mg/dL [place] Chloride [Moles/Vol] 102 mmol/L 98 - 107 mmol/L [place] CO2 [Moles/Vol] 24 mmol/L 22 - 30 mmol/L [place] Creatinine [Mass/Vol] 0.51 mg/dL Low 0.52 - 1.25 mg/dL [place] EGFR IF NonAfrican French >90.0 >60 mL/min [place] Comment on above: KDIGO guidelines pro vide the following GFR categories: Stage GFR(ml/min/1.73 m2) Terms G1 >=90 Normal or high G2 60-89 Mildly decreased* G3a 45-59 Mildly to moderately decreased G3b 30-44 Moderately to severely decreased G4 15-29 Severely decreased G5 <15 Kidney failure *Relative to young adult level. In the absence of evidence of kidney damage, neither GFR category G1 nor G2 fulfill the criteria for CKD. The CKD-EPI equation is validated in individuals 18 years of age and older. Currently the best equation for estimating glomerular filtration rate (GFR) from serum creatinine in children is the Bedside Matute equation. It is less accurate in patients with extremes of muscle mass, restriction of dietary protein, ingestion of creatine, extra-renal metabolism of creatinine, or treatment with medications that affect renal tubular creatinine secretion. GFR/1.73 sq M predicted among blacks MDRD (S/P/Bld) [Vol rate/Area] mL/min/{1.73_m2} >60 mL/min [place] Glucose [Mass/Vol] 146 mg/dL High 70 - 100 mg/dL [place] Potassium [Moles/Vol] 4.6 mmol/L 3.5 - 5.1 mmol/L [place] Protein [Mass/Vol] 7.3 g/dL 6.3 - 8.2 g/dL [place] Sodium [Moles/Vol] 137 mmol/L 135 - 145 mmol/L [place] Urea nitrogen [Mass/Vol] 19 mg/dL 7 - 20 mg/dL [place] Ferritinon 07-19-2019 Ferritin [Mass/Vol] 41 ng/mL 8 - 252 ng/mL [place] Test Performed by [facility], [address] [place] [id number] [place] Folateon 07-19-2019 Folate >20.0 2.8 - 20 ng/mL [place] Ironon 07-19-2019 Iron [Mass/Vol] 136 ug/dL 37 - 170 ug/dL [place] Test Performed by [facility], [address] [place] [id number] [place] Lipid Panelon 07-19-2019 Cholesterol [Mass/Vol] 243 mg/dL Abnormal <200 [place] Cholesterol in HDL [Mass/Vol] 61 mg/dL High 40 - 60 mg/dL [place] Cholesterol in LDL [Mass/Vol] 155 mg/dL Abnormal <100 [place] Cholesterol.total/C holesterol in HDL [Mass ratio] 4 {ratio} [place] Comment on above: Ref Range: < 3 Low Risk for CHD 3-6 Mod Risk for CHD > 6 High Risk for CHD Triglyceride [Mass/Vol] 136 mg/dL <150 [place] Magnesiumon 07-19-2019 Magnesium [Mass/Vol] 1.7 mg/dL 1.6 - 2.3 mg/dL [place] Otheron 07-19-2019 Test Performed by [place] [id number] Interpretation and review of laboratory results Abnormal [place] Test Performed by [facility], [facility] [place], [place] [id number] [place] [address] Vitamin B12on 07-19-2019 Cobalamin (Vitamin B12) [Mass/Vol] 362 pg/mL 239 - 931 pg/mL [place] US ABDOMEN LIMITEDon 019 Patient Name: BELLE FARRIS ---Ultrasound--- Exam Date/Time 10/19/2018 09:19:18 EDT Exam US Abdomen Limited Ordering Physician WILLY RIDDLE FIONA B Accession Number [id number] CPT4 Codes 34715 () Reason For Exam s/p gallbladder removed in 2011, slight pain on RUQ abdomen , fatty liver focus on liver and common duct . Report ULTRASOUND ABDOMEN LIMITED - RIGHT UPPER QUADRANT: Indication: Status post cholecystectomy. Slight right upper quadrant pain. Examination: Ultrasonographic evaluation of the right upper quadrant of the abdomen Comparison: None. Findings: Liver: Generalized increased echogenicity with coarsened echotexture corresponding to fatty infiltration. Normal size and contour. No focal lesion identified. Gallbladder: Status post cholecystectomy Bile ducts: No intrahepatic and extrahepatic biliary dilatation Common bile duct: 0.3 cm Pancreas: Obscured by bowel gas Right kidney: Normal parenchymal echogenicity without mass or hydronephrosis. Dimensions: 11.3 x 4.3 x 5.3 cm Aorta and Inferior vena cava: Visualized portions are normal Ascites: None IMPRESSION: Hepatic steatosis. No intrahepatic or extra hepatic ductal dilatation. Report Dictated on --- Final --- Dictated: 10/19/2018 11:42 am Dictating Physician: MD RUBY KEVIN Signed Date and Time: 10/19/2018 11:43 am Signed by: MD RUBY KEVIN Transcribed Date and Time: 10/19/2018 11:42 [place], [place] Incoming Radiology Results From [facility] - 10/19/2018 11:44 AM EDT Patient Name: BELLE FARRIS ---Ultrasound--- Exam Date/Time 10/19/2018 09:19:18 EDT Exam US Abdomen Limited Ordering Physician WILLY RIDDLE FIONA B Accession Number [id number] CPT4 Codes 60939 () Reason For Exam s/p gallbladder removed in 2011, slight pain on RUQ abdomen , fatty liver focus on liver and common duct . Report ULTRASOUND ABDOMEN LIMITED - RIGHT UPPER QUADRANT: Indication: Status post cholecystectomy. Slight right upper quadrant pain. Examination: Ultrasonographic evaluation of the right upper quadrant of the abdomen Comparison: None. Findings: Liver: Generalized increased echogenicity with coarsened echotexture corresponding to fatty infiltration. Normal size and contour. No focal lesion identified. Gallbladder: Status post cholecystectomy Bile ducts: No intrahepatic and extrahepatic biliary dilatation Common bile duct: 0.3 cm Pancreas: Obscured by bowel gas Right kidney: Normal parenchymal echogenicity without mass or hydronephrosis. Dimensions: 11.3 x 4.3 x 5.3 cm Aorta and Inferior vena cava: Visualized portions are normal Ascites: None IMPRESSION: Hepatic steatosis. No intrahepatic or extra hepatic ductal dilatation. Report Dictated on --- Final --- Dictated: 10/19/2018 11:42 am Dictating Physician: MD RUBY KEVIN Signed Date and Time: 10/19/2018 11:43 am Signed by: MD RUBY KEVIN Transcribed Date and Time: 10/19/2018 11:42 [place] Initial Visit (Gastroenterol ogy)on 12-03-2017 Initial Visit (Gastroenterology) Chief ComplaintHeartburn and epigastric pain History of Present [id number] female has a several year history of intermittent heartburn symptoms. She's been on omeprazole 20 mg daily since that time. Over the past 6 months she's been having increasing heartburn associated with subxiphoid epigastric pain. She has had intermittent dysphagia 3 different times over the past 6 months. She denies any odynophagia. She does have nocturnal regurgitation about once a week. She denies any melena. Symptoms are increased with caffeine products and cold beverages. She denies using nonsteroidal agents or aspirin. Her weight has fluctuated up and down about 5 pounds, but there's been no significant change in weight. Her last upper endoscopy exam was about 6 years ago. She has a history of chronic constipation that has been relieved when she started taking metformin for her diabetes. She averages now about 2 bowel movements a day. She reports having a colonoscopy with polyps removed about 2 years ago. Review of SystemsROS:Const: Denies fatigue, fever and weight loss.CV: Denies chest pain, pacemaker, palpitations and valvular heart disease.Resp: Denies cough, sleep apnea, SOB and snoring.GI: Denies symptoms other than stated above.Musculo: Denies joint pain and muscle pain.Skin: Denies hives and rash.Neuro: Denies seizures and stroke.Psych: Denies anxiety and depression.Endocrine: Denies intolerance to cold, hot flashes and impaired glucose tolerance.Dioni/Lymph: Denies anemia, blood transfusions, chemotherapy, enlarged lymph nodes and radiation treatment of any kind. Active Problems GERD (gastroesophageal reflux disease) (530.81) (K21.9) Past Medical History History of anxiety (V11.8) (Z86.59) History of diabetes mellitus (V12.29) (Z86.39) History of hypercholesterolemia (V12.29) (Z86.39) History of hypertension (V12.59) (Z86.79) History of irritable bowel syndrome (V12.79) (Z87.19) History of sleep apnea (V13.89) (Z86.69) Surgical History History of Cholecystectomy Laparoscopic History of Colonoscopy 2013-NORMAL, 2015-DR JOSEPH-POLYP History of Dental Surgery History of Esophagogastroduodenoscopy With Biopsy History of Hysterectomy History of Lithotripsy History of Tonsillectomy With Adenoidectomy Family History Family history of diabetes Family history of coronary artery disease (V17.3) (Z82.49) Social History Consumes alcohol occasionally (V49.89) (Z78.9) Former smoker (V15.82) (Z87.891) No illicit drug use Allergies codeine Recorded By: Tristan Espinoza; 12/03/2017 8:56:53 AM Misc. Sulfa Containing Compounds 03 Dec 2017; Recorded By: Lucrecia Copeland; 12/03/2017 10:11:42 AM Nasonex Recorded By: Tristan Espinoza; 12/03/2017 8:56:53 AM sulfa Recorded By: Tristan Espinoza; 12/03/2017 8:56:53 AM Vicodin TABS Recorded By: Tristan Espinoza; 12/03/2017 8:56:53 AM Current Meds Dicyclomine HCl - 20 MG Oral Tablet; TAKE 1 TABLET EVERY 6 HOURS NEEDED;Therapy: (Recorded:03Dec2017) to Recorded Dispense: 0 Days ; #: Sufficient Tablet; Refill: 0; IRINA = N; Record; Last Updated By: Lucrecia Copeland; 12/03/2017 10:11:42 AM HydroCHLOROthiazide 25 MG Oral Tablet; TAKE 1 TABLET DAILY;Therapy: (Recorded:03Dec2017) to Recorded Dispense: 0 Days ; #: Sufficient Tablet; Refill: 0; IRINA = N; Record; Last Updated By: Lucrecia Copeland; 12/03/2017 10:11:42 AM Lisinopril 10 MG Oral Tablet; TAKE 1 TABLET DAILY DIRECTED;Therapy: (Recorded:03Dec2017) to Recorded Dispense: 0 Days ; #: Sufficient Tablet; Refill: 0; IRINA = N; Record; Last Updated By: Lucrecia Copeland; 12/03/2017 10:11:42 AM MetFORMIN HCl ER (MOD) 1000 MG Oral Tablet Extended Release 24 Hour;Therapy: (Recorded:03Dec2017) to Recorded Dispense: 0 Days ; #: Sufficient Tablet Extended Release 24 Hour; Refill: 0; IRINA = N; Record; Last Updated By: Lucrecia Copeland; 12/03/2017 10:11:42 AM Omeprazole 20 MG Oral Capsule Delayed Release; TAKE 1 CAPSULE DAILY EVERYMORNING BEFORE BREAKFAST;Therapy: (Recorded:03Dec2017) to Recorded Dispense: 0 Days ; #: Sufficient Capsule Delayed Release; Refill: 0; IRINA = N; Record; Last Updated By: Lucrecia Copeland; 12/03/2017 10:11:42 AM PROzac 20 MG Oral Capsule; TAKE 1 CAPSULE TWICE DAILY;Therapy: (Recorded:03Dec2017) to Recorded Dispense: 0 Days ; #: Sufficient Capsule; Refill: 0; IRINA = N; Record; Last Updated By: Lucrecia Copeland; 12/03/2017 10:11:42 AM Victoza 18 MG/3ML Subcutaneous Solution Pen-injector; INJECT 1.2 MGSUBCUTANEOUSLY EVERY DAY;Therapy: (Recorded:03Dec2017) to Recorded Dispense: 0 Days ; #: Sufficient ML; Refill: 0; IRINA = N; Record; Last Updated By: Lucrecia Copeland; 12/03/2017 10:11:42 AM Xanax 0.25 MG Oral Tablet; TAKE 1 TABLET 3 TIMES DAILY NEEDED;Therapy: (Recorded:03Dec2017) to Recorded Dispense: 0 Days ; #: Sufficient Tablet; Refill: 0; IRINA = N; Record; Last Updated By: Lucrecia Copeland; 12/03/2017 10:11:42 AM Vitals Vital Signs Recorded: 03Dec2017 10:12AMHeart [id number] ight5 ft 2 liZsmuqt656 lb 6 ozBMI Jhtlgctwyb91.06BSA Calculated2.09 Physical ExamExam:Const: . Vital signs and weight reviewed. BMI is 45. Dentition is fairENMT: Oral mucosa moist with no thrush and no mucositis.Neck: Supple and symmetric. Thyroid is normal in size and texture.Resp: Respiration rate is normal. Clear to auscultation.CV: Rhythm is regular. No heart murmur appreciated. Carotids: 2+ and equal bilaterally, without bruits. Femorals: 2+ and equal bilaterally, without bruits.Abdomen: Obese and soft with bowel sounds. No organomegaly, mass, or hernia. Mild tenderness in the subxiphoid region.Anus/Perineum/Rectum: Exam deferred.Lymph: No visible or palpable cervical lymphadenopathy. Inguinal nodes not palpable.Skin: Dry and warm with no nodularity or rash.Psych: Affect is normal. Alert and oriented x3.Neuro: Cranial nerves intact. No focal motor defectsMuscloskeletal: No joint deformity or swelling. Motor strength normal. Provider ImpressionsImpression:1. Long-standing GERD with increasing symptoms over the past 6 months rule out ulcer disease2. History of chronic constipation without symptoms after starting metformin for diabetes3. Morbid obesity4. Questionable history of colon polypsRecommendation:1. The differential diagnosis of the patient's symptoms was discussed, and an upper endoscopy examination was recommended. The procedure and sedation were discussed including but not limited to risks of bleeding, perforation and reaction to medication including cardiopulmonary events. The office endoscopy forms were reviewed and signed. The patient was instructed on not being able to drive the day of the exam after being sedated. All of the patient's questions were answered. Patient appears medically stable for the procedure.2. Increase omeprazole 20 mg before breakfast and supper.3. The patient's elevated BMI was discussed. Options for weight reduction including decreasing portion sizes, decreasing high calorie foods, and increasing exercise were discussed.4. Obtain colonoscopy records and pathology from Dr. Heard's office to evaluate for polyp surveillance timing. Patient Discussion/SummaryUpper endoscopy examination is recommended to evaluate your symptoms. You should increase omeprazole 20 mg 30-60 minutes prior to eating breakfast and again at suppertime. End of Encounter MedsDicyclomine HCl - 20 MG Oral Tablet; TAKE 1 TABLET EVERY 6 HOURS NEEDED;Therapy: (Recorded:03Dec2017) to RecordedHydroCHLOROthiazide 25 MG Oral Tablet; TAKE 1 TABLET DAILY;Therapy: (Recorded:03Dec2017) to RecordedLisinopril 10 MG Oral Tablet; TAKE 1 TABLET DAILY DIRECTED;Therapy: (Recorded:03Dec2017) to RecordedMetFORMIN HCl ER (MOD) 1000 MG Oral Tablet Extended Release 24 Hour;Therapy: (Recorded:03Dec2017) to RecordedOmeprazole 20 MG Oral Capsule Delayed Release; TAKE 1 CAPSULE DAILY EVERYMORNING BEFORE BREAKFAST;Therapy: (Recorded:03Dec2017) to RecordedPROzac 20 MG Oral Capsule (FLUoxetine HCl); TAKE 1 CAPSULE TWICE DAILY;Therapy: (Recorded:03Dec2017) to RecordedVictoza 18 MG/3ML Subcutaneous Solution Pen-injector; INJECT 1.2 MGSUBCUTANEOUSLY EVERY DAY;Therapy: (Recorded:03Dec2017) to RecordedXanax 0.25 MG Oral Tablet (ALPRAZolam); TAKE 1 TABLET 3 TIMES DAILY ASNEEDED;Therapy: (Recorded:03Dec2017) to Recorded Signatures Electronically signed by : Daniel Tsang DO; Dec 03 2017 11:08AM EST (Author) Normal [facility] Otheron 12-09-2001 CONVERTED ELECTRONIC SIGNATURE BRYNN MEI M.D., PATHOLOGIST (Electronic signature on file) Final Signed Out: 12/09/2001 14:06 [facility] CONVERTED FINAL DIAGNOSIS DIAGNOSIS NO MALIGNANT CELLS IDENTIFIED. NARRATIVE RARE GROUPS OF UROTHELIAL CELLS, SQUAMOUS CELLS. [facility] CONVERTED ORDERING PROVIDER Ordering Provider: CINDY MOORE [facility] Vital Signs Date Time Vital Sign Value Performing Clinician Facility 08-14-2024 11:00-0400 Body temperature 98.1 [degF] Dr. Berenice Bowling DO Work Phone: [facility] 08-14-2024 11:00-0400 Diastolic blood pressure 65 mm[Hg] Dr. Berenice Bowling DO Work Phone: [facility] 08-14-2024 11:00-0400 Heart rate 61 /min Dr. Berenice Bowling DO Work Phone: [facility] 08-14-2024 11:00-0400 Respiratory rate 14 /min Dr. Berenice Bowling DO Work Phone: [facility] 08-14-2024 11:00-0400 SaO2% (BldA) [Mass fraction] 98 % Dr. Berenice Bowling DO Work Phone: [facility] 08-14-2024 11:00-0400 Systolic blood pressure 114 mm[Hg] Dr. Berenice Bowling DO Work Phone: [facility] 08-14-2024 08:58-0400 Body height 157.[address] Berenice Bowling DO Work Phone: [facility] 08-14-2024 08:58-0400 Body mass index (BMI) [Ratio] 39.9 kg/m2 Dr. Berenice Bowling DO Work Phone: [facility] 08-14-2024 08:58-0400 Body weight [address] Berenice Bowling DO Work Phone: [facility] 06-29-2024 20:41-0400 Diastolic Blood Pressure Non-Invasive 79 mm[Hg] DR BERENICE BOWLING DO [facility] 06-29-2024 20:41-0400 Systolic Blood Pressure Non-Invasive 118 mm[Hg] DR BERENICE BOWLING DO [facility] 04-01-2024 08:21-0500 Body mass index (BMI) [Ratio] 38.59 kg/m2 Juanjose King MD Work Phone: [facility] 04-01-2024 08:21-0500 Body temperature 98.49 [degF] Juanjose King MD Work Phone: [facility] 04-01-2024 08:21-0500 Body weight 95.71 kg Juanjose King MD Work Phone: [facility] 04-01-2024 08:21-0500 Diastolic blood pressure 76 mm[Hg] Juanjose King MD Work Phone: [facility] 04-01-2024 08:21-0500 Heart rate 68 /min Juanjose King MD Work Phone: [facility] 04-01-2024 08:21-0500 SaO2% (BldA) [Mass fraction] 98 % Juanjose King MD Work Phone: [facility] 04-01-2024 08:21-0500 Systolic blood pressure 112 mm[Hg] Juanjose King MD Work Phone: [facility] 03-31-2024 08:29-0500 Body height 157.5 cm Herbert Higgins DO Work Phone: [facility] 03-31-2024 08:29-0500 Body mass index (BMI) [Ratio] 38.78 kg/m2 Herbert Higgins DO Work Phone: [facility] 03-31-2024 08:29-0500 Body temperature 97.81 [degF] Herbert Glozman DO Work Phone: [facility] 03-31-2024 08:29-0500 Body weight 96.16 kg Herbert Glozman DO Work Phone: [facility] 03-31-2024 08:29-0500 Diastolic blood pressure 68 mm[Hg] Herbert Glozman DO Work Phone: [facility] 03-31-2024 08:29-0500 Heart rate 72 /min Herbert Glozman DO Work Phone: [facility] 03-31-2024 08:29-0500 Respiratory rate 18 /min Herbert Glozman DO Work Phone: [facility] 03-31-2024 08:29-0500 SaO2% (BldA) [Mass fraction] 99 % Herbert Glozman DO Work Phone: [facility] 03-31-2024 08:29-0500 Systolic blood pressure 109 mm[Hg] Herbert Glozman DO Work Phone: [facility] 03-11-2024 08:53-0500 Body height 157.5 cm Juanjose King MD Work Phone: [facility] 03-11-2024 08:53-0500 Body mass index (BMI) [Ratio] 39.32 kg/m2 Juanjose King MD Work Phone: [facility] 03-11-2024 08:53-0500 Body temperature 97.81 [degF] Juanjose King MD Work Phone: [facility] 03-11-2024 08:53-0500 Body weight 97.52 kg Juanjose King MD Work Phone: [facility] 03-11-2024 08:53-0500 Diastolic blood pressure 83 mm[Hg] Juanjose King MD Work Phone: [facility] 03-11-2024 08:53-0500 Heart rate 56 /min Juanjose King MD Work Phone: [facility] 03-11-2024 08:53-0500 SaO2% (BldA) [Mass fraction] 98 % Juanjose King MD Work Phone: [facility] 03-11-2024 08:53-0500 Systolic blood pressure 134 mm[Hg] Juanjose King MD Work Phone: [facility] 01-29-2024 12:01-0500 Body mass index (BMI) [Ratio] 39.68 kg/m2 Krislyn Aberegg PA Work Phone: [facility] 01-29-2024 12:01-0500 Body temperature 97.59 [degF] Krislyn Aberegg PA Work Phone: [facility] 01-29-2024 12:01-0500 Body weight 98.4 kg Krislyn Aberegg PA Work Phone: [facility] 01-29-2024 12:01-0500 Diastolic blood pressure 62 mm[Hg] Krislyn Aberegg PA Work Phone: [facility] 01-29-2024 12:01-0500 Heart rate 69 /min Krislyn Aberegg PA Work Phone: [facility] 01-29-2024 12:01-0500 Respiratory rate 18 /min Krislyn Aberegg PA Work Phone: [facility] 01-29-2024 12:01-0500 SaO2% (BldA) [Mass fraction] 100 % Krislyn Aberegg PA Work Phone: [facility] 01-29-2024 12:01-0500 Systolic blood pressure 101 mm[Hg] Krislyn Aberegg PA Work Phone: [facility] 11-29-2023 01:54-0400 Body height 157.5 cm VIRGINIA TRACY MD [facility] 11-29-2023 01:54-0400 Body temperature 97.7 [degF] VIRGINIA TRACY MD [facility] 11-29-2023 01:54-0400 Body weight 100 kg VIRGINIA TRACY MD [facility] 11-29-2023 01:54-0400 Diastolic Blood Pressure Non-Invasive 84 mm[Hg] VIRGINIA TRACY MD [facility] 11-29-2023 01:54-0400 Heart rate 66 /min VIRGINIA TRACY MD [facility] 11-29-2023 01:54-0400 Respiratory rate 20 /min VIRGINIA TRACY MD [facility] 11-29-2023 01:54-0400 Systolic Blood Pressure Non-Invasive 126 mm[Hg] VIRGINIA TRACY MD [facility] 01-30-2023 15:25-0500 Body temperature 97.7 [degF] Dr. Berenice Bowling Work Phone: [facility] 01-30-2023 15:25-0500 Diastolic blood pressure 94 mm[Hg] Dr. Berenice Bowling Work Phone: [facility] 01-30-2023 15:25-0500 Heart rate 72 /min Dr. Berenice Bowling Work Phone: [facility] 01-30-2023 15:25-0500 Respiratory rate 16 /min Dr. Berenice Bowling Work Phone: [facility] 01-30-2023 15:25-0500 SaO2% (BldA) [Mass fraction] 96 % Dr. Berenice Bowling Work Phone: [facility] 01-30-2023 15:25-0500 Systolic blood pressure 123 mm[Hg] Dr. Berenice Bowling Work Phone: [facility] 01-30-2023 14:02-0500 Body height 157.[address] Berenice Bowling Work Phone: [facility] 01-30-2023 14:02-0500 Body mass index (BMI) [Ratio] 39.5 kg/m2 Dr. Berenice Bowling Work Phone: [facility] 01-30-2023 14:020500 Body weight [address] Berenice Bowling Work Phone: [facility] 11-24-2022 13:30-0400 Diastolic Blood Pressure Non-Invasive 69 1 RODRIGO SUPPAN DPM [facility] 11-24-2022 13:30-0400 Heart rate 80 /min RODRIGO SUPPAN DPM [facility] 11-24-2022 13:30-0400 Systolic Blood Pressure Non-Invasive 124 1 RODRIGO SUPPAN DPM [facility] 11-24-2022 13:15-0400 Diastolic Blood Pressure Non-Invasive 71 1 RODRIGO SUPPAN DPM [facility] 11-24-2022 13:15-0400 Heart rate 84 /min RODRIGO SUPPAN DPM [facility] 11-24-2022 13:15-0400 Systolic Blood Pressure Non-Invasive 102 1 RODRIGO SUPPAN DPM [facility] 11-24-2022 13:10-0400 Diastolic Blood Pressure Non-Invasive 69 1 RODRIGO SUPPAN DPM [facility] 11-24-2022 13:10-0400 Heart rate 69 /min RODRIGO SUPPAN DPM [facility] 11-24-2022 13:10-0400 Systolic Blood Pressure Non-Invasive 108 1 RODRIGO SUPPAN DPM [facility] 11-24-2022 13:06-0400 Body temperature 97.7 [degF] RODRIGO SUPPAN DPM [facility] 11-24-2022 12:55-0400 Respiratory Rate - Anes 18 br/min RODRIGO SUPPAN DPM [facility] 11-24-2022 12:50-0400 Respiratory Rate - Anes 17 br/min RODRIGO SUPPAN DPM [facility] 11-24-2022 10:25-0400 Body height 157.4 cm RODRIGO SUPPAN DPM [facility] 11-24-2022 10:25-0400 Body temperature 98.24 [degF] RODRIGO SUPPAN DPM [facility] 11-24-2022 10:25-0400 Body weight 95.4 kg RODRIGO SUPPAN DPM [facility] 11-24-2022 10:25-0400 Heart rate 64 /min RODRIGO SUPPAN DPM [facility] 11-24-2022 10:25-0400 Respiratory rate 14 /min RODRIGO SUPPAN DPM [facility] 11-16-2022 07:27-0400 Body mass index (BMI) [Ratio] 41.5 kg/m2 Dr. Berenice Bowling Work Phone: [facility] 11-16-2022 07:27-0400 Body temperature 98 [degF] Dr. Berenice Bowling Work Phone: [facility] 11-16-2022 07:27-0400 Body weight 102.[address] Berenice Bowling Work Phone: [facility] 11-16-2022 07:27-0400 Diastolic blood pressure 75 mm[Hg] Dr. Berenice Bowling Work Phone: [facility] 11-16-2022 07:27-0400 Heart rate 67 /min Dr. Berenice Bowling Work Phone: [facility] 11-16-2022 07:27-0400 SaO2% (BldA) [Mass fraction] 98 % Dr. Berenice Bowling Work Phone: [facility] 11-16-2022 07:27-0400 Systolic blood pressure 110 mm[Hg] Dr. Berenice Bowling Work Phone: [facility] 06-13-2022 08:20-0400 Body temperature 98.4 [degF] Irma Barnett DO Work Phone: [facility] 06-13-2022 08:20-0400 Diastolic blood pressure 70 mm[Hg] Irma Barnett DO Work Phone: [facility] 06-13-2022 08:20-0400 Heart rate 99 /min Irma Barnett DO Work Phone: [facility] 06-13-2022 08:20-0400 Respiratory rate 18 /min Irma Barnett DO Work Phone: [facility] 06-13-2022 08:20-0400 SaO2% (BldA) [Mass fraction] 97 % Irma Barnett DO Work Phone: [facility] 06-13-2022 08:20-0400 Systolic blood pressure 110 mm[Hg] Irma Barnett DO Work Phone: [facility] 12-16-2021 10:17-0400 Diastolic Blood Pressure NBP 75 1 RODRIGO RIVERA DPM [facility] 12-16-2021 10:17-0400 Heart rate 64 /min RODRIGO SUPPAN DPM [facility] 12-16-2021 10:17-0400 Respiratory rate 16 /min RODRIGO SUPPAN DPM [facility] 12-16-2021 10:17-0400 Systolic Blood Pressure NBP 106 1 RODRIGO SUPPAN DPM [facility] 12-16-2021 10:00-0400 Diastolic Blood Pressure NBP 67 1 RODRIGO SUPPAN DPM [facility] 12-16-2021 10:00-0400 Systolic Blood Pressure NBP 105 1 RODRIGO SUPPAN DPM [facility] 12-16-2021 09:51-0400 Body temperature 97.16 [degF] RODRIGO SUPPAN DPM [facility] 12-16-2021 09:51-0400 Diastolic Blood Pressure NBP 60 1 RODRIGO SUPPAN DPM [facility] 12-16-2021 09:51-0400 Heart rate 64 /min RODRIGO SUPPAN DPM [facility] 12-16-2021 09:51-0400 Respiratory rate 16 /min RODRIGO SUPPAN DPM [facility] 12-16-2021 09:51-0400 Systolic Blood Pressure NBP 99 1 RODRIGO SUPPAN DPM [facility] 12-16-2021 07:41-0400 Body height 157.5 cm RODRIGO SUPPAN DPM [facility] 12-16-2021 07:41-0400 Body temperature 98.6 [degF] RODRIGO SUPPAN DPM [facility] 12-16-2021 07:41-0400 Body weight 102.3 kg RODRIGO SUPPAN DPM [facility] 12-16-2021 07:41-0400 Diastolic blood pressure 82 mm[Hg] RODRIGO SUPPAN DPM [facility] 12-16-2021 07:41-0400 Heart rate 66 /min RODRIGO SUPPAN DPM [facility] 12-16-2021 07:41-0400 Systolic blood pressure 135 mm[Hg] RODRIGO SUPPAN DPM [facility] 12-07-2021 08:13-0400 Body height 157.5 cm RODRIGO SUPPAN DPM [facility] 12-07-2021 08:13-0400 Body weight 102.3 kg RODRIGO SUPPAN DPM [facility] 12-07-2021 08:13-0400 Body weight 41.24 kg/m2 RODRIGO SUPPAN DPM [facility] 12-07-2021 08:13-0400 diastolic 63 mm[Hg] RODRIOG SUPPAN DPM [facility] 12-07-2021 08:13-0400 Heart rate 68 /min RODRIGO SUPPAN DPM [facility] 12-07-2021 08:13-0400 Respiratory rate 20 /min RODRIGO SUPPAN DPM [facility] 12-07-2021 08:13-0400 systolic 96 mm[Hg] RODRIGO SUPPAN DPM [facility] 06-13-2021 07:35-0400 Body temperature 97.6 [degF] Dr. Moncho Carrillo Work Phone: [facility] Work Phone: 06-13-2021 07:35-0400 Diastolic blood pressure 68 mm[Hg] Dr. Moncho Carrillo Work Phone: [facility] Work Phone: 06-13-2021 07:35-0400 Heart rate 67 /min Dr. Moncho Carrillo Work Phone: [facility] Work Phone: 06-13-2021 07:35-0400 Respiratory rate 14 /min Dr. Moncho Carrillo Work Phone: [facility] Work Phone: 06-13-2021 07:35-0400 SaO2% (BldA) [Mass fraction] 98 % Dr. Moncho Carrillo Work Phone: [facility] Work Phone: 06-13-2021 07:35-0400 Systolic blood pressure 109 mm[Hg] Dr. Moncho Carrillo Work Phone: [facility] Work Phone: 06-13-2021 06:19-0400 Body height 157.[address] Moncho Carrillo Work Phone: [facility] Work Phone: 06-13-2021 06:19-0400 Body mass index (BMI) [Ratio] 40.3 kg/m2 Dr. Moncho Carrillo Work Phone: [facility] Work Phone: 06-13-2021 06:19-0400 Body weight [address] Moncho Carrillo Work Phone: [facility] Work Phone: 04-25-2021 14:03-0500 Body mass index (BMI) [Ratio] 87.8 kg/m2 Dr. Moncho Carrillo Work Phone: [facility] Work Phone: 04-25-2021 14:03-0500 Body temperature 98.2 [degF] Dr. Moncho Carrillo Work Phone: [facility] Work Phone: 04-25-2021 14:03-0500 Body weight [address] Moncho Carrillo Work Phone: [facility] Work Phone: 04-25-2021 14:03-0500 Diastolic blood pressure 71 mm[Hg] Dr. Moncho Carrillo Work Phone: [facility] Work Phone: 04-25-2021 14:03-0500 Heart rate 67 /min Dr. Moncho Carrillo Work Phone: [facility] Work Phone: 04-25-2021 14:03-0500 Respiratory rate 16 /min Dr. Moncho Carrillo Work Phone: [facility] Work Phone: 04-25-2021 14:03-0500 SaO2% (BldA) [Mass fraction] 97 % Dr. Moncho Carrillo Work Phone: [facility] Work Phone: 04-25-2021 14:03-0500 Systolic blood pressure 108 mm[Hg] Dr. Moncho Carrillo Work Phone: [facility] Work Phone: Encounters Encounter Date Encounter Type Care Provider Facility Start: 10-22-2024 ambulatory Moncho Carrillo Facility :[facility] Start: 10-16-2024 End: 10-16-2024 ambulatory [facility] Facility:[id number] Start: 10-16-2024 Encounter for preprocedural laboratory examination [facility] Start: 10-02-2024 End: 10-02-[address] BERENICE BOWLING DO Facility:[facility] Start: 10-02-2024 End: 10-02-2024 Patient encounter procedure BETSY CARIAS BIOMASS PRODUCTION MANAGER-PASTE UP WORKER [facility] Start: 10-01-2024 End: 10-05-2024 ambulatory BETSY CARIAS BIOMASS PRODUCTION MANAGER-PASTE UP WORKER Facility:[facility] Start: 10-01-2024 End: 10-05-2024 Outreach Lab BETSY CARIAS BIOMASS PRODUCTION MANAGER-PASTE UP WORKER [facility] Start: 09-29-2024 ambulatory Berenice Montes ity:GUI Start: 09-29-2024 End: 09-29-2024 Emergency department patient visit RODRIGO GUZMÁN DO [facility] Start: 09-26-2024 End: 09-26-2024 Emergency department patient visit BIANKA WADE MD [facility] Start: 09-08-2024 End: 09-08-2024 Orders Only Evelio Mathis DPM Work Phone: [facility] Comment on above: Painful orthopaedic hardware (Primary Dx); Nonunion after arthrodesis; Hallux malleus of left foot; Pain in left foot Start: 09-08-2024 ambulatory EVELIO BISWASCCO Faci lity:[phone] Start: 08-28-2024 End: 08-28-2024 Patient encounter procedure Staci MCKEON -[facility] Work Phone: Start: 08-28-2024 End: 08-28-[address] Berenice Bowling DO Work Phone: [facility] Work Phone: Start: 08-14-2024 Non-patient / Non-visit Moncho Rose nd DO -[facility] Start: 08-14-2024 End: 08-14-2024 Admission to same day surgery center Moncho Carrillo DO -Endoscopy Work Phone: Start: 08-14-2024 End: 08-14-[address] Berenice Bowling DO Work Phone: [facility] Work Phone: Start: 08-12-2024 End: 08-12-[address] BERENICE BOWLING DO [facility] Start: 08-12-2024 End: 08-12-2024 Patient encounter procedure EVELIO MATHIS DPM [facility] Start: 07-31-2024 End: 07-31-2024 Emergency department patient visit JOSE A BERNAL MD [facility] Start: 07-25-2024 End: 07-25-[address] BERENICE BOWLING DO Facility:A Start: 07-09-2024 End: 10-10-[address] BERENICE BOWLING DO Facility:[facility] Start: 07-03-2024 End: 07-03-[address] BERENICE BOWLING DO [facility] Start: 07-03-2024 End: 07-03-[address] CLARA GREENWOOD MD [facility] Start: 06-29-2024 End: 06-29-[address] BERENICE BOWLING DO [facility] Start: 06-29-2024 End: 06-29-[address] BERENICE BOWLING DO [facility] Start: 06-23-2024 End: 06-23-[address] BERENICE BOWLING DO [facility] Start: 05-28-2024 End: 06-01-[address] BERENICE BOWLING DO [facility] Start: 05-15-2024 End: 05-19-[address] BERENICE BOWLING DO [facility] Start: 04-29-2024 End: 04-29-2024 ambulatory TORITO Thurman [facility] Start: 04-22-2024 End: 04-22-2024 Telephone encounter Ammon Frye RN Work Phone: Hematology/Oncology Comment on above: Results (Lab) Start: 04-02-2024 End: 04-02-2024 ambulatory BERENICE BOWLING Facility:[facility] Start: 04-01-2024 End: 04-04-2024 Telephone encounter Juanjose King MD Work Phone: Hematology/Oncology Comment on above: AVS 04/01 Start: 04-01-2024 End: 04-01-2024 Patient encounter procedure Juanjose King MD Work Phone: Hematology/Oncology Start: 04-01-2024 End: 04-01-2024 ambulatory Juanjose King MD Work Phone: Hematology/Oncology Comment on above: Petechiae (Primary D x) Start: 03-31-2024 End: 03-31-2024 Emergency department patient visit [facility] Comment on above: Pain, dental (Primar y Dx) Start: 03-27-2024 End: 03-31-[address] BERENICE BOWLING DO [facility] Start: 03-27-2024 End: 03-31-[address] BERENICE BOWLING DO [facility] Start: 03-12-2024 End: 03-12-2024 ambulatory Berenice Bowling Facility:[facility] Start: 03-12-2024 End: 03-12-2024 ambulatory Berenice Bowling Facility:[facility] Start: 03-11-2024 End: 03-11-2024 ambulatory Juanjose King MD Work Phone: Hematology/Oncology Comment on above: Petechiae (Primary D x); Anemia, unspecified type Start: 03-11-2024 End: 03-11-2024 Patient encounter procedure Juanjose King MD Work Phone: Hematology/Oncology Start: 02-29-2024 End: 02-29-[address] BERENICE BOWLING DO Facility[facility] Start: 02-29-2024 End: 02-29-2024 Patient encounter procedure HANNAH BURCH BIOMASS PRODUCTION MANAGER-PASTE UP WORKER [facility] Start: 02-25-2024 End: 02-25-2024 ambulatory Berenice Bowling Facility:[facility] Start: 02-22-2024 End: 02-26-[address] BERENICE BOWLING DO [facility] Start: 02-22-2024 End: 02-26-2024 Outreach Lab HANNAH BURCH BIOMASS PRODUCTION MANAGER-PASTE UP WORKER [facility] Start: 02-19-2024 End: 02-20-2024 [facility] Start: 02-05-2024 End: 02-05-2024 ambulatory Berenice Bowling Facility:[facility] Start: 01-29-2024 End: 01-29-2024 Telephone encounter Mima MCKEON Work Phone: [facility] Comment on above: Medication Problem Start: 01-29-2024 End: 01-29-2024 ambulatory BERENICE BOWLING Facility:[facility] Start: 01-29-2024 End: 01-29-2024 Patient encounter procedure Mima MCKEON Work Phone: [facility] Comment on above: Dysuria (Primary Dx) ; Vaginal itching Start: 01-24-2024 End: 01-24-[address] BERENICE BOWLING DO [facility] Start: 01-24-2024 End: 01-24-[address] BERENICE BOWLING DO [facility] Start: 01-22-2024 End: 01-22-2024 ambulatory Berenice Bowling Facility:[facility] Start: 01-18-2024 ambulatory Teresa Ramsey Facility :[facility] Start: 01-18-2024 End: 01-18-2024 ambulatory Berenice Bowling Facility:[facility] Start: 01-02-2024 End: 01-02-2024 ambulatory Berenice Bowling Facility:[facility] Start: 12-19-2023 End: 12-19-2023 ambulatory Berenice Bowling Facility:[facility] Start: 11-29-2023 End: 11-29-2023 Emergency department patient visit VIRGINIA TRACY MD [facility] Start: 11-16-2023 ambulatory Berenice Bowling Facil ity:[facility] Start: 11-16-2023 End: 11-16-2023 ambulatory Berenice Bowling Facility:[facility] Start: 11-02-2023 End: 11-02-2023 ambulatory BERENICE BOWLING [facility] Start: 11-02-2023 End: 11-02-[address] BERENICE BOWLING DO [facility] Start: 10-30-2023 End: 11-03-2023 ambulatory BERENICE BOWLING [facility] Start: 10-30-2023 End: 11-03-[address] BERENICE BOWLING DO [facility] Start: 10-24-2023 End: 10-24-2023 ambulatory Berenice Bowling Facility:[facility] Start: 09-14-2023 End: 09-18-2023 ambulatory BERENICE BOWLING [facility] Start: 09-14-2023 End: 09-18-[address] BERENICE BOWLING DO [facility] Start: 08-24-2023 End: 08-28-2023 ambulatory BERENICE BOWLING [facility] Start: 08-24-2023 End: 08-28-[address] BERENICE BOWLING DO [facility] Start: 08-24-2023 End: 08-28-2023 ambulatory BERENICE BOWLING [facility] Start: 08-24-2023 End: 08-28-[address] BERENICE BOWLING DO [facility] Start: 02-27-2023 End: 02-27-2023 ambulatory BERENICE BOWLING [facility] Start: 02-27-2023 End: 02-27-[address] BERENICE BOWLING DO [facility] Start: 02-16-2023 End: 02-16-[address] Berenice Bowling Work Phone: [facility] Work Phone: Start: 02-12-2023 End: 02-12-[address] Berenice Bowling Work Phone: [facility] Work Phone: Start: 02-12-2023 End: 02-12-[address] Berenice Bowling Work Phone: [facility]-Radiology, [facility] Work Phone: Start: 01-30-2023 Non-patient / Non-visit Dr. Caty Bowling Work Phone: [facility] Start: 01-30-2023 End: 01-30-2023 Admission to same day surgery center Dr. Berenice Bowling Work Phone: [facility]-Endoscopy Work Phone: Start: 01-30-2023 End: 01-30-[address] Berenice Bowling Work Phone: [facility] Work Phone: Start: 01-11-2023 End: 01-11-[address] Berenice Bowling Work Phone: [facility] Work Phone: Start: 11-24-2022 End: 11-24-2022 ambulatory BERENICE BOWLING [facility] Start: 11-24-2022 End: 11-24-2022 SAME DAY STAY RODRIGO RIVERA DPM [facility] Start: 11-16-2022 End: 11-16-[address] Berenice Bowling Work Phone: [facility] Work Phone: Start: 11-15-2022 End: 11-15-2022 ambulatory RODRIGO RIVERA DPM [facility] Start: 08-03-2022 End: 08-07-2022 Outreach Lab JONH NY MD [facility] Start: 07-13-2022 End: 07-13-[address] BERENICE BOWLING DO [facility] Start: 06-13-2022 End: 06-13-2022 Patient encounter procedure Irma Barnett DO Work Phone: [facility] Comment on above: Bacterial sinusitis (Primary Dx); Pharyngitis, unspecified etiology Start: 02-02-2022 End: 02-02-[address] BERENICE BOWLING DO [facility] Start: 01-20-2022 End: 01-20-2022 Patient encounter procedure RAISA AVILA BIOMASS PRODUCTION MANAGER-PASTE UP WORKER [facility] Start: 12-16-2021 End: 12-16-2021 SAME DAY STAY RODRIGO RIVERA DPM [facility] Start: 12-14-2021 End: 12-14-[address] BERENICE BOWLING DO [facility] Start: 12-07-2021 End: 12-07-2021 Admission to [facility] RODRIGO RIVERA DPM [facility] Start: 11-22-2021 End: 11-22-2021 Admission to same day surgery center TRISH AMAYA PA-C [facility] Start: 08-31-2021 End: 08-31-[address] BERENICE BOWLING DO [facility] Start: 06-13-2021 Non-patient / Non-visit Dr. Ra michael Carrillo Work Phone: [facility] Start: 06-13-2021 End: 06-13-2021 Admission to same day surgery center Dr. Moncho Carrillo Work Phone: [facility]-Endoscopy Start: 04-25-2021 End: 04-25-[address] Moncho Carrillo Work Phone: [facility] Rad[facility] Start: 04-19-2021 End: 04-23-[address] BERENICE BOWLING DO [facility] Start: 04-14-2021 End: 04-14-[address] Moncho Carrillo Work Phone: [facility] Start: 02-24-2021 Patient encounter procedure Bradley Reynolds BIOMASS PRODUCTION MANAGER.PASTE UP WORKER Work Phone: [facility] Start: 02-24-2021 Progress Note Bradley Reynolds APR N.PASTE UP WORKER Work Phone: [facility] Start: 02-21-2021 End: 02-21-[address] BERENICE BOWLING DO [facility] Start: 02-01-2020 Patient encounter procedure Harvey Jimenez PASTE UP WORKER Work Phone: [facility] Start: 02-01-2020 Progress Note Harvey Jimenez CN P Work Phone: [facility] Start: 01-08-2020 End: 01-08-2020 Subsequent hospital visit by physician Scarlett Ferrari Work Phone: [facility] Start: 01-01-2020 End: 01-01-2020 Subsequent hospital visit by physician Berenice Bowling [facility] Start: 12-11-2019 Patient encounter procedure Irma Barnett DO Work Phone: [facility] Start: 12-11-2019 Progress Note Irma cuellar DO Work Phone: [facility] Start: 10-17-2019 End: 10-17-2019 Subsequent hospital visit by physician Jonnathan Sorto Work Phone: [facility] Start: 10-09-2019 End: 10-09-2019 Subsequent hospital visit by physician Ruchi Alan [facility] Start: 07-25-2019 End: 07-25-2019 Subsequent hospital visit by physician Jonnathan Sorto Work Phone: [facility] Start: 07-19-2019 End: 07-19-2019 Subsequent hospital visit by physician Nasra Mckeon Work Phone: [facility] [address] Comment on above: Vitamin D deficiency ; Intestinal malabsorption, unspecified type; Deficiency of multiple nutrient elements; Zinc deficiency; Iron deficiency; EMANUEL (obstructive sleep apnea) Start: 01-28-2019 End: 01-28-2019 Subsequent hospital visit by physician Nasra Mckeon Work Phone: [facility] Start: 11-19-2018 End: 11-19-2018 Subsequent hospital visit by physician Nasra Mckeon Work Phone: [facility] Start: 10-19-2018 End: 10-19-2018 Subsequent hospital visit by physician Lyric Riddle Work Phone: [facility] Comment on above: Hx of cholecystectom y; RUQ abdominal pain Start: 12-19-2017 Patient encounter procedure [facility] Facility:[id number] Start: 12-05-2001 End: 12-05-2001 Patient encounter procedure Conversion Terence Sevilla [facility] Start: 12-05-2001 Results Only Conversion Diya Sevilla [facility] Procedures Date Procedure Procedure Detail Performing Clinician Start: 08-14-[address] Berenice Bowling DO Work Phone: Start: 01-29-2024 Urnls dip stick/tablet rgnt auto w/o microscopy Mima MCKEON Work Phone: Start: 01-18-[address] BERENICE BOWLING DO Start: 02-12-2023 Radiologic examination of upper gastrointestinal tract and small bowel with serial films Dr. Berenice Bowling Work Phone: Start: 01-30-[address] Berenice rodriguez Work Phone: Start: 11-24-2022 Structure of left foot (body structure) RODRIGO RIVERA DPM Comment on above: FUSION Start: 06-13-[address] Moncho Carrillo Work Phone: Start: 04-25-2021 X-ray of rib Dr. Moncho Carrillo Work Phone: Start: 12-31-2020 Lipid 1996 panel - Serum or Plasma Herbert Higgins DO Work Phone: Start: 05-06-[address] BERENICE BOWLING DO Comment on above: Focal Hidradenitis, Right Perineal Area Start: 07-19-2019 Assay of ferritin Nasra R Bridle Work Phone: Start: 07-19-2019 Assay of folic acid serum Nasra R Bridle Work Phone: Start: 07-19-2019 Assay of iron Nasra R Bridle Work Phone: Start: 07-19-2019 Assay of magnesium Nasra R Bridle Work Phone: Start: 07-19-2019 Blood count complete automated Nasra R B ridle Work Phone: Start: 07-19-2019 Comprehensive metabolic panel Nasra R Br idle Work Phone: Start: 07-19-2019 Cyanocobalamin vitamin b-12 Nasra R Brid le Work Phone: Start: 07-19-2019 Lipid panel Nasra R Bridle Work Phone: Start: 10-19-2018 Us abdominal real time w/image limited Lyric B Ju Work Phone: Start: 07-28-[address] BERENICE WOODS DO Start: 07-28-2018 Hernia of abdominal cavity (disorder) DR BERENICE BOWLING DO Comment on above: hiatal Start: 12-19-[address] BERENICE BARBOSA DO Start: 09-04-2012 Colonoscopy Irma Barnett DO Work Phone: Start: 11-23-2011 Lipid 1996 panel - Serum or Plasma Tressa Holder PA Work Phone: Start: 03-05-[address] BERENICE BOWLING DO Start: 12-05-2001 CONVERTED CYTOLOGY NON-CENTERLESS GRINDING MACHINE ADJUSTER Conversion Be cierra Ap Cholecystectomy DR BERENICE RODRIGUEZ DO ft (qualifier value) DR ELI BOWLING DO Comment on above: left History of gastroint estinal tract bypass History of Cristian-en-Y gastric bypass Dr. Berenice Bowling Work Phone: Comment on above: 2019 History of reduction of breast S tatus post breast reduction Dr. Berenice Bowling DO Work Phone: Hysterectomy DR BERENICE Rojas DO Ligation of fallopian tube D R BERENICE BOWLING DO Tonsillectomy DR BERENICE GUO DO Umbilical hernia (disorder) DR BERENICE BOWLING DO Plan of Treatment Date Care Activity Detail Author Start: 2045 RSV Immunization for Adults (1 - 1-dose 75+ series) RSV Immunization for Adults (1 - 1-dose 75+ series) [facility] Start: 12-31-2025 [address] [facility] Start: 11-07-2024 End: 11-07-2024 Admission to same day surgery center 11/07/2024 12:00 PM EDT - 11/07/2024 2:25 PM EDT Surgery [facility] Surgery [address] [facility] [place] [address] Eevlio Mathis, KIKA [address] [place] [address] REMOVAL HARDWARE FOOT [facility] Surgery Comment on above: REMOVAL HARDWARE FOOT Start: 11-07-2024 End: 11-07-2024 Arthrodesis great toe interphalangeal joint ARTHRODESIS GREAT TOE INTERPHALANGEAL JOINT Painful orthopaedic hardware Nonunion after arthrodesis Hallux malleus of left foot Pain in left foot 11/07/2024 12:00 PM EDT MR OR Start: 11-07-2024 End: 11-07-2024 Removal implant deep REMOVAL HARDWARE FOOT Painful orthopaedic hardware Nonunion after arthrodesis Hallux malleus of left foot Pain in left foot 11/07/2024 12:00 PM EDT MR OR Start: 11-07-2024 Subsequent hospital visit by physician 11/07/2024 12:00 PM EDT Hospital Encounter [facility] Surgery [address] [facility] [place] [address] Evelio Mathis, KIKA [address] [place] [address] Painful orthopaedic hardware [T84.84XA], Nonunion after arthrodesis [M96.0], Hallux malleus of left foot [M20.32], Pain in left foot [M79.672] [facility] Surgery Comment on above: Painful orthopaedic hardware [T84.84XA], Nonunion after arthrodesis [M96.0], Hallux malleus of left foot [M20.32], Pain in left foot [M79.672] Start: 11-03-2024 Influenza vaccination Influenza Vaccine (#1) [facility] Start: 09-01-2024 DTaP/Tdap/Td vaccine (2 - Td) DTaP/Tdap/Td vaccine (2 - Td) [place], [place] Start: 09-01-2024 DTaP/Tdap/Td Vaccines (2 - Td or Tdap) DTaP/Tdap/Td Vaccines (2 - Td or Tdap) [facility] Start: 09-01-2024 Urine microalbumin profile DTaP,Tdap,Td Vaccine (2 - Td or Tdap) [facility] Start: 08-14-2024 Colonoscopy w/biopsy single/multiple COLONOSCOPY AND BIOPSY [facility] Start: 08-14-2024 Egd transoral biopsy single/multiple EGD BIOPSY SINGLE/MULTIPLE [facility] Start: 08-14-2024 Patient discharge [facility] Start: 04-02-2024 End: 04-02-2024 ambulatory 04/02/2024 8:00 AM EST Results Only Hari Boatengwn [facility] [address] [place] [address] LABS - SPECIAL FLAME ANNEALING MACHINE OPERATOR NEEDED [facility] Comment on above: LABS - SPECIAL FLAME ANNEALING MACHINE OPERATOR NEEDED Start: 04-01-2024 End: 07-01-2024 PLATELET AGGREGATION PANEL PLATELET AGGREGATION PANEL Lab Routine Petechiae Expected: 04/01/2024, Expires: 07/01/2024 [facility] Work Phone: Comment on above: Expected: 04/01/2024, Expires: Start: 04-01-2024 End: 04-01-2024 ambulatory [facility] Comment on above: PLATELET AGGREGATION STUDIES 3WK OV/EARLY LABS* Start: 03-11-2024 End: 03-11-2025 Cobalamin (Vitamin B12) [Mass/volume] in Serum or Plasma [facility] Comment on above: Expected: 03/11/2024, Expires: Start: 03-11-2024 End: 03-11-2025 Ferritin [Mass/volume] in Serum or Plasma [facility] Comment on above: Expected: 03/11/2024, Expires: Start: 03-11-2024 End: 06-10-2024 Folate [Mass/volume] in Serum or Plasma [facility] Comment on above: Expected: 03/11/2024, Expires: Start: 03-11-2024 End: 06-10-2024 Haptoglobin [Mass/volume] in Serum or Plasma [facility] Comment on above: Expected: 03/11/2024, Expires: Start: 03-11-2024 End: 03-11-2025 Iron and Iron binding capacity panel - Serum or Plasma [facility] Work Phone: Comment on above: Expected: 03/11/2024 (Approximate), Expi res: 03/11/2025 Start: 11-04-2023 COVID-19 Vaccine ( season) COVID-19 Vaccine ( season) [facility] Start: 11-04-2023 Covid-19 Vaccine ( season) Covid-19 Vaccine ( season) [facility] Start: 01-30-2023 Egd insert guide wire dilator passage esophagus EGD GUIDE WIRE INSERTION [facility] Start: 01-30-2023 Egd transoral biopsy single/multiple EGD BIOPSY SINGLE/MULTIPLE [facility] Start: 01-30-2023 Patient discharge [facility] Start: 11-03-2022 Influenza vaccination INFLUENZA (Season Ended) [facility] Start: 03-05-2022 DEPRESSION ASSESSMENT DEPRESSION ASSESSMENT [facility] Start: 11-03-2021 Influenza vaccination INFLUENZA (Season Ended) [facility] Start: 03-02-2021 COVID-19 VACCINE (3 - Booster for Bridger series) COVID-19 VACCINE (3 - Booster for Bridger series) [facility] Start: 2020 Pneumococcal Vaccine: 50+ (2 of 2 - PCV) Pneumococcal Vaccine: 50+ (2 of 2 - PCV) [facility] Start: 2020 Pneumococcal Vaccine: 50+ Years (2 of 2 - PCV) Pneumococcal Vaccine: 50+ Years (2 of 2 - PCV) [facility] Start: 2020 Screening for malignant neoplasm of lung Lung Cancer Screening [facility] Start: 2020 SHINGRIX VACCINE (1 of 2) SHINGRIX VACCINE (1 of 2) [facility] Start: 07-18-2020 Lipid panel Lipid screen [facility], [place] Start: 07-08-2020 End: 07-08-2020 Office Visit 07/08/2020 Office Visit Weight Management Scarlett Ferrari MD [address] [place], [place] [id number] [facility] Start: 01-22-2020 End: 01-22-2020 Appointment 01/22/2020 Appointment Radiology Bree Mitchell PA [address] [place], [place] [id number] [facility] Start: 01-21-2020 Lipid panel Lipid screen [place], [place] Start: 01-21-2020 Lipid screen Lipid [place] Start: 01-08-2020 End: 01-08-2020 Office Visit 01/08/2020 Office Visit Weight Management Scarlett Ferrari MD [address] [place] [address] [phone] [facility] Start: 11-04-2019 Influenza vaccination [place] Start: 07-25-2019 End: 07-25-2019 Office Visit 07/25/2019 Office Visit Bariatrics Jonnathan Sorto MD [address] [place] [address] [phone] [facility] Start: 07-17-2019 A1C test (Diabetic or Prediabetic) A1C test (Diabetic or Prediabetic) [place] Start: 07-17-2019 HbA1c (Bld) [Mass fraction] A1C test (Diabetic or Prediabetic) [place] Start: 04-11-2019 Lipid screen Lipid [place] Start: 11-03-2018 Influenza vaccination Flu vaccine (#1) [place] Start: 11-22-2016 Lipid panel Lipid Screening [facility] Start: 11-22-2016 LIPID SCREEN LIPID SCREEN [facility] Start: 11-16-2015 DIABETES SCREEN DIABETES SCREEN [facility] Start: 11-16-2015 Diabetes Screening Diabetes Screening [facility] Start: 08-11-2015 COLOGUARD (FIT-DNA) COLOGUARD (FIT-DNA) [facility] Start: 08-11-2015 Colonoscopy COLONOSCOPY [facility] Start: 08-11-2015 COLORECTAL CANCER SCREENING COLORECTAL CANCER SCREENING [facility] Start: 08-11-[address] COLONOGRAPHY [facility] Start: 08-11-2015 FECAL OCCULT BLOOD FECAL OCCULT BLOOD [facility] Start: 08-11-2015 Screening for malignant neoplasm of colon [facility] Start: 08-11-2015 SIGMOIDOSCOPY SIGMOIDOSCOPY [facility] Start: 2010 Mammography MAMMOGRAM [facility] Start: 2010 Screening for malignant neoplasm of breast [facility] Start: 2000 HPV TESTING HPV TESTING [facility] Start: 08-11-1991 PAP TESTING PAP TESTING [facility] Start: 08-11-1991 Screening for malignant neoplasm of cervix Cervical Cancer Screening [facility] Start: 1989 DTaP/Tdap/Td vaccine (1 - Tdap) DTaP/Tdap/Td vaccine (1 - Tdap) [place] Start: 1989 Hepatitis B Vaccine (1 of 3 - 19+ 3-dose series) Hepatitis B Vaccine (1 of 3 - 19+ 3-dose series) [facility] Start: 1989 Hepatitis B Vaccine (1 of 3 - Risk 3-dose series) Hepatitis B Vaccine (1 of 3 - Risk 3-dose series) [place] Start: 1989 Hepatitis B Vaccines (1 of 3 - 19+ 3-dose series) Hepatitis B Vaccines (1 of 3 - 19+ 3-dose series) [facility] Start: 1989 Urine microalbumin profile DTAP,TDAP,TD (1 - Tdap) [facility] Start: 1988 Anxiety Screening Anxiety Screening [facility] Start: 1988 Depression Screening Depression Screening [facility] Start: 1988 Diabetes mellitus screening Diabetes Screening [facility] Start: 1988 Diabetic microalbuminuria test Diabetic microalbuminuria test [place] Start: 1988 HEPATITIS C SCREENING HEPATITIS C SCREENING [facility] Start: 1988 Hepatitis C screening Hepatitis C Screening [facility] Start: 1988 HIV SCREENING HIV SCREENING [facility] Start: 1988 HIV screening HIV Screening [facility] Start: 1985 HIV screen HIV screen [place] Start: 1985 HIV screening HIV screen [place] Start: 1982 Adult depression screening assessment DEPRESSION SCREENING [facility] Start: 1980 [object Object] Diabetic foot exam [place] Start: 1980 Diabetic foot examination Diabetic foot exam [place] Start: 1980 Diabetic retinal exam Diabetic retinal exam [place], [place] Start: 1976 Pneumococcal 0-64 years Vaccine (1 of 1 - PPSV23) Pneumococcal 0-64 years Vaccine (1 of 1 - PPSV23) [place] Start: 08-11-1975 COVID-19 VACCINE (#1) COVID-19 VACCINE (#1) [facility] Start: 08-11-1971 MMR Vaccines (1 of 1 - Standard series) MMR Vaccines (1 of 1 - Standard series) [facility] Start: 1970 HEPATITIS B (1 of 3 - 3-dose series) HEPATITIS B (1 of 3 - 3-dose series) [facility] Start: 1970 HIV screening HIV Screening [facility] Start: 1970 Screening for malignant neoplasm of colon [facility] Bacteria identified in Urine by Culture URINE CULTURE Microbiology Routine Dysuria Ordered: 01/29/2024 [facility] Work Phone: Comment on above: Ordered: 01/29/2024 BACTERIAL VAGINOSIS NAAT BACTERI AL VAGINOSIS NAAT Lab Routine Dysuria Vaginal itching 01/29/2024 12:21 PM EST [facility] RICARDO/TRICHOMONAS NAAT RICARDO /TRICHOMONAS NAAT Lab Routine Dysuria Vaginal itching 01/29/2024 12:21 PM EST [facility] Patient referral [facility] Work Phone: End: 07-19-2019 Vitamin B1, Whole Blood Vitamin B1, Whole Blood Lab Routine Intestinal malabsorption, unspecified type Deficiency of multiple nutrient elements Zinc deficiency Iron deficiency Vitamin D deficiency EMANUEL (obstructive sleep apnea) 1 Occurrences starting 07/19/2019 until 07/19/2019 [place] Comment on above: 1 Occurrences starting 07/19/2019 until 07/19/2019 Vitamin B1, Whole Blood Vitamin B1, Whole Blood Lab Routine Intestinal malabsorption, unspecified type Deficiency of multiple nutrient elements Zinc deficiency Iron deficiency Vitamin D deficiency EMANUEL (obstructive sleep apnea) 07/19/2019 8:05 AM EDT [place] End: 07-19-2019 Vitamin D 25 Hydroxy Vitamin D 25 Hydroxy Lab Routine Vitamin D deficiency 1 Occurrences starting 07/19/2019 until 07/19/2019 [place] Comment on above: 1 Occurrences starting 07/19/2019 until 07/19/2019 Vitamin D 25 Hydroxy Vitamin D 2 5 Hydroxy Lab Routine Vitamin D deficiency 07/19/2019 8:05 AM EDT [place] End: 07-19-2019 Zinc Zinc Lab Routine Intestinal malabsorption, unspecified type Deficiency of multiple nutrient elements Zinc deficiency Iron deficiency Vitamin D deficiency EMANUEL (obstructive sleep apnea) 1 Occurrences starting 07/19/2019 until 07/19/2019 [place] Comment on above: 1 Occurrences starting 07/19/2019 until 07/19/2019 Zinc Zinc Lab Routine Intestinal malabsorption, unspecified type Deficiency of multiple nutrient elements Zinc deficiency Iron deficiency Vitamin D deficiency EMANUEL (obstructive sleep apnea) 07/19/2019 8:05 AM EDT [facility] Immunizations Immunization Date Immunization Notes Care Provider [facility] 12-04-2023 influenza, injectabl e, quadrivalent, contains preservative; Translations: [Fluarix PF Prefilled Syringe ] DR BERENICE BOWLING DO [facility] 12-04-2023 influenza virus vacc ine, unspecified formulation Evelio Mathis DPM Work Phone: [facility] 11-30-2022 influenza, injectabl e, quadrivalent, contains preservative; Translations: [Fluarix PF Quadrivalent ] DR BERENICE BOWLING DO [facility] 07-13-2022 SARSCoV2 mRNA([id number]+)biv al vac; Translations: [Pfizer-BioNTech COVID-19 (12y+) Bivalent Booster Vaccine PF] DR BERENICE BOWLING DO [facility] 07-13-2022 COVID-19, mRNA, LNP- S, bivalent booster, PF, 30 mcg/0.3 mL dose; Translations: [Pfizer-BioNTech COVID-19 (12y+) Bivalent Booster Vaccine PF] DR BERENICE BOWLING DO [facility] 04-29-[address] BERENICE BOWLING DO [facility] 01-20-[address] BERENICE BOWLING DO [facility] 01-05-2021 influenza virus vacc ine, unspecified formulation DR BERENICE BOWLING DO [facility] 01-05-2021 SARS-CoV-2 (COVID-19 ) Ad26 vaccine, recombinant DR BERENICE BOWLING DO [facility] 05-19-2020 SARS-CoV-2 (COVID-19 ) Ad26 vaccine, recombinant DR BERENICE BOWLING DO [facility] Comment on above: Result Comment: 2020: TPV25 01-01-2020 influenza, injectabl e, quadrivalent, preservative free; Translations: [Fluarix PF Quadrivalent ] DR BERENICE BOWLING DO [facility] 11-21-2018 influenza, injectabl e, quadrivalent, preservative free; Translations: [Fluarix PF Quadrivalent ] DR BERENICE BOWLING DO [facility] Comment on above: Early/Late Reason: O ther: 12-02-2014 influenza virus vacc ine, unspecified formulation DR BERENICE BOWLING DO [facility] 09-01-2014 tetanus toxoid, redu ramsey diphtheria toxoid, and acellular pertussis vaccine, adsorbed DR BERENICE BOWLING DO [facility] 03-05-2005 pneumococcal polysaccharide vaccine, [address] BERENICE BOWLING DO [facility] 02-01-2005 pneumococcal polysaccharide vaccine, [address] BERENICE BOWLING DO [facility] Payers Date Payer Category Payer Medicaid HMO [employer] ODM [id number] 2023 Self-pay [id number] 2022 Medicaid [id number] 2018 Medicaid [id number] 2018 Unknown [id number] 2018 Unknown [id number] 2018 Unknown [employer] [facility] MEDICAID xxxxxxxxxxx 2018-Present [phone] CLAIMS DEPARTMENT [address] [place] [address] xxxxxxxxxxx [id number]. [id number] 2007 Unknown [id number] 1970 Unknown [id number] 2.16.840.1.259181.3.579.2.356 1970 Unknown [id number] 2.16.840.1.679206.3.579.2. 1970 Unknown [id number] 2.16.840.1.493785.3.579.2. 1970 Unknown [id number] 2.16840.1.296934.3.579.2. 1970 Unknown [id number] 2.16840.1.370069.3.579.2. 1970 Unknown [id number] 2.840.1.983801.3.579.2. 1970 Unknown [id number] 2.840.1.447484.3.579.2. 1970 Unknown [id number] 2.840.1.454324.3.579.2. 1970 Unknown [id number] 2.840.1.816941.3.579.2. 1970 Unknown [id number] 2.840.1.311118.3.579.2. 1970 Unknown [id number] 2.840.1.279814.3.579.2. 1970 Unknown [id number] 2.840.1.152705.3.579.2. 1970 Unknown [id number] 2.840.1.172553.3.579.2. 1970 Unknown [id number] 2.840.1.009527.3.579.2. 1970 Unknown [id number] 2.840.1.833654.3.579.2. 1970 Unknown [id number] 2.16840.1.169578.3.579.2. 1970 Unknown [id number] 2.840.1.374299.3.579.2. 1970 Unknown [id number] 2.840.1.006114.3.579.2. 1970 Unknown [id number] 2.840.1.974398.3.579.2. 1970 Unknown [id number] .840.1.192111.3.579.2. 1970 Unknown [id number] 2.840.1.625025.3.579.2. 1970 Unknown [id number] 2.840.1.343115.3.579.2 1970 Unknown [id number] 2.840.1.007671.3.579.2. 1970 Unknown [id number] 2.840.1.762410.3.579.2. 1970 Unknown [id number] .840.1.076408.3.579.2 1970 Unknown [id number] 2.840.1.830905.3.579.2. 1970 Unknown [id number] 2.840.1.955440.3.579.2. 1970 Unknown [id number] .840.1.241729.3.579.2. 1970 Unknown [id number] .840.1.223995.3.579.2. 1970 Unknown [id number] 2.840.1.989960.3.579.2.651 Unknown [id number] 2.16840.1.326844.3.579.2.462 Unknown [id number] 2.840.1.526253.3.579.2.462 Unknown [id number] 2.16.840.1.406582.3.579.2.462 Unknown [id number] 2.16.840.1.239210.3.579.2.462 Unknown [id number] 2.16.840.1.569962.3.579.2.462 Unknown [id number] 2.16.840.1.119524.3.579.2.462 Unknown [id number] 2.16.840.1.725348.3.579.2.462 Unknown [id number] 2..840.1.695134.3.579.2.462 Unknown [id number] 2.840.1.998421.3.579.2.462 Unknown [id number] 2.840.1.723921.3.579.2.462 Unknown [id number] 2.840.1.564161.3.579.2.462 Unknown [id number] 2.840.1.705876.3.579.2.462 Unknown [id number] 2.840.1.070709.3.579.2.462 Unknown [id number] 2.840.1.464303.3.579.2.462 Unknown [id number] 2.840.1.120743.3.579.2.462 Unknown [id number] 2.840.1.073020.3.579.2.462 Unknown [id number] 2.840.1.235195.3.579.2.462 Unknown [id number] 2.840.1.736570.3.579.2.462 Unknown [id number] 2.16840.1.017414.3.579.2.462 Unknown [id number] 2.16840.1.612607.3.579.2.462 Unknown [id number] 2.840.1.806618.3.579.2.462 Social History Date Type Detail Facility Start: 10-09-2018 End: 09-23-2024 Tobacco smoking status NHIS Former smoker [facility] JOSELITO RILEY Start: 03-05-1989 End: 03-05-2012 History of tobacco use Current smoker [facility] [facility] Start: 03-05-1989 End: 03-05-2012 History of tobacco use [facility] Start: 10-09-2018 End: 06-13-2022 Cigarettes smoked current (pack per day) - [facility] Start: 10-09-2018 End: 06-13-2022 [facility]: 09-[facility]2018 Alcohol Comment last drinking was 03/2018, 1-2 x per year, no hx EtOH, [facility] Start: 1970 [facility] Start: 07-25-2019 End: 03-11-2024 Tobacco use and exposure [facility] Start: 07-25-2019 End: 03-31-2024 Alcohol intake [facility] Start: 06-08-2021 End: 02-16-2023 Tobacco smoking status NHIS Unknown if ever smoked [facility] Start: 01-23-2012 Tobacco smoking stat us NHIS Smokes tobacco daily [facility] Start: 01-31-2013 End: 04-01-2024 Alcohol intake Current drinker of alcohol (finding) [facility] Start: 01-23-2012 History SDOH Alcohol Comment SOCIALLY [facility] Adult Depression Screening Assessment 0 [facility] Start: 03-11-2024 Tobacco Comment Pt smoked one pack daily on & off x 20 years, quit 2012 [facility] Start: 08-28-2018 End: 10-03-2021 Sex Female (finding) [facility] Start: 12-22-2021 Gender identity Identifies as female gender (finding) [facility] Start: 12-22-2021 Sexual orientation Heterosexual (fin ding) [facility] Sexual Orientation Fani Piña [place] NEGATED: Highlighted row Not [facility] Goals Date Patient Goal Desired Activity /State Functional Status Date Assessment Result Facility 06-29-2024 Functional Status Sensory Deficits None A [facility] 11-29-2023 Functional Status Independent [facility] 11-24-2022 Functional Status Sitting on edge of bed [facility] 11-24-2022 Functional Status Maintained [facility] 12-16-2021 Functional Status [facility] 12-16-2021 Functional Status Maintained [facility] 12-07-2021 Functional Status Sensory Deficits None A [facility] Mental Status Date Assessment Result Facility 08-14-2024 Cognitive function Voice/Name;Touch/Shaki ng [facility] Work Phone: 08-14-2024 Cognitive function Patient Orien tation Person;Place;Time [facility] Work Phone: 11-29-2023 Mental Status Oriented x 4 [facility] 01-30-2023 Cognitive function Voice/Name [facility] Work Phone: 11-24-2022 Mental Status Oriented x 4 [facility] 11-24-2022 Mental Status [facility] 12-16-2021 Mental Status Orientation Oriented x 4 [facility] 12-16-2021 Mental Status [facility] 06-13-2021 Cognitive function Voice/Name [facility] Work Phone: Clinical Notes 12-11-2019 to 10-16-2024 Note Date & Type Note Facility 10-16-2024 Note HNO ID: [id number] Author: THERESA PHILLIPS LPN Service: ? Author Type: Licensed Nurse Type: Progress Notes Filed: 10/20/2024 08:23 Note Text: Out PT EKG preformed without problem, per order. Patient tolerated well. Patient voices no other concerns at this time. Theresa Phillips LPN [facility] 10-02-2024 Note . MICRO - Microbiology PROCEDURE: Urine Culture [*1] SOURCE: Urine, Clean Catch BODY SITE: COLLECTED DATE/TIME: 10/01/2024 16:36 EDT RECEIVED DATE/TIME: 10/01/2024 19:08 EDT START DATE/TIME: 10/01/2024 19:08 EDT FREE TEXT SOURCE: FINAL REPORTS Final Report [] Verified Date/Time/Personnel: 10/02/2024 14:30 EDT 10,000 - 50,000 cfu/ml Multiple bacterial morphotypes present. Probable Contamination. Suggest recollection if clinically indicated. PRELIMINARY REPORTS Preliminary Report [] Verified Date/Time/Personnel: 10/01/2024 19:59 EDT Specimen received in lab. Performing Locations *1: This [facility] performed at: [facility] [address] [place] [address], [facility] , [facility] 09-29-2024 Hospital Discharge instructions Patient Education 09/29/2024 14:52:50 Benzodiazepine Withdrawal Benzodiazepine Withdrawal Benzodiazepine ( benzo ) medicines are used for anxiety, other mood problems, seizures, alcohol withdrawal, and as muscle relaxants. If you have been taking a benzodiazepine for more than a few weeks, your body gets used to having it. When you stop taking the medicine, withdrawal symptoms develop. Symptoms The list of possible withdrawal symptoms is very long. Withdrawal can include pain, agitation, restlessness, shakiness, anxiety, headaches, cramps, dizziness, nausea, vomiting, trouble sleeping, and diarrhea, among many others. More severe reactions can include chest pain, trouble breathing, seizures, delusions, hallucinations, high temperatures, and coma. As the medicine clears from your system, your body readjusts to not having it. This period is called detox. Detox usually takes a few weeks. But it may take a few months if you have been taking benzodiazepines for several years. Symptoms will go away when detox is complete. If you have been taking benzodiazepines for a long time, you will likely need medical help to prevent severe withdrawals. This is accomplished through a closely monitored regimen where you gradually cut down and wean off of benzodiazepines over weeks to possibly months rather than stop them all at once (cold turkey). Home care The healthcare provider may prescribe a sedative to help reduce your symptoms. Take this medicine exactly as instructed. Don't take it more often than prescribed. Never take a sedative with alcohol. General care You will need good nutrition during detox. Eat 3 meals a day. Take vitamin and mineral supplements as directed. Don't drink alcohol during your detox. If you can, stay with family or friends who can help and support you as you detox. Don't drive until all symptoms are gone and you are feeling better. Follow-up care Follow up with your healthcare provider, or as advised. Withdrawal can last from a few weeks to a few months. Once you get past it, you will feel better. If you were misusing benzodiazepines, it is essential that you get support and treatment to stay off them. Your healthcare provider can help. Here are some resources for support: Narcotics Anonymous: www.na.org (or check the phone book) National [place] on Alcoholism and Drug Dependence: 445.733.3348, www.ncadd.org You may benefit from a residential detox program. There, you can stay overnight and get supervised attention and help. Look online or in the phone book for listings under Drug Abuse and Treatment Centers. When to seek medical advice Call your healthcare provider right away if any of these occur: Severe shakiness Increasing upper abdominal pain or vomiting Hallucinations Headache or confusion Severe trouble sleeping Depression Feeling that you want to harm yourself or others Call 911 Call 911 if any of these occur: Trouble breathing or swallowing, or wheezing Severe confusion Extreme drowsiness or trouble awakening Fainting or loss of consciousness Rapid heart rate Very low or very high blood pressure Seizure [id number] [employer]. [address] [place] [id number]. All rights reserved. This information is not intended as a substitute for professional medical care. Always follow your healthcare professional's instructions. Follow Up Care 09/29/2024 11:12:48 With:BERENICE BOWLING DO Address: [address] [place] [phone] When:2-4 days [facility] 09-29-2024 Emergency department Discharge summary Discharge Instructions Thank you for allowing [facility] to assist you with your healthcare needs. The following is important discharge information regarding your hospital visit. Diagnosis from Today's Visit Medication dose missed What to Do Next Instructions from Your Care Team No qualifying data available. Post Acute Orders No qualifying data available. You Need to Schedule the Following Appointments Follow Up with BERENICE BOWLING DO When:Within 2-4 days Where:[address] [place] [phone] [phone] Allergies NSAIDS due to bypass surgery Vicodin Rash codeine Rash sulfa drugs Rash traMADol Unknown Medications Please ask your primary doctor or pharmacist before taking any other medication not listed, including over the counter drugs, herbal medications, vitamins and or supplements as they may interact with your home medications. What How Much When Why Instructions Last Dose New hydrOXYzine (Vistaril 25 mg oral capsule) 1 cap by mouth Four (4) times a day as needed for for anxiety Printed Prescription Unchanged acetaminophen (acetaminophen 500 mg oral tablet) 2 tab(s) by mouth Three (3) times a day as needed for pain or fever Unchanged ALPRAZolam (ALPRAZolam 0.5 mg oral tablet) 1 tab(s) by mouth Two (2) times a day ISABELLA (generalized anxiety disorder) Duration: 30 Days Unchanged cetirizine (cetirizine 10 mg oral tablet) 1 tab(s) by mouth Once a day Unchanged cholecalciferol (Vitamin D3 10 mcg (400 intl units) oral tablet) 1 tab(s) by mouth Every day Unchanged cyanocobalamin (Vitamin B-12 500 mcg oral tablet) 1 tab(s) by mouth Once a day Unchanged diclofenac topical (Voltaren 1% topical gel) 2 gram(s) Topical Four (4) times a day Unchanged ferrous sulfate (ferrous sulfate 325 mg (65 mg elemental iron) oral delayed release tablet) 1 tab(s) by mouth Once a day Unchanged FLUoxetine (FLUoxetine 40 mg oral capsule) 2 cap by mouth Once a day Unchanged fluticasone nasal (Flonase 50 mcg/ inh nasal spray) 2 spray(s) each nostril Once a day (in the morning) Unchanged folic acid (folic acid 1 mg oral tablet) 1 tab(s) by mouth Once a day Unchanged gabapentin (gabapentin 300 mg oral capsule) 1 cap by mouth Three (3) times a day Peripheral neuropathy Duration: 90 Days Unchanged hydroCHLOROthiazide (hydroCHLOROthiazide 25 mg oral tablet) 1 tab(s) by mouth Once a day Unchanged losartan (losartan 25 mg oral tablet) 1 tab(s) by mouth Once a day Unchanged metFORMIN (MetFORMIN (Eqv-Glucophage XR) 500 mg oral tablet, EXTENDED RELEASE) 2 tab(s) by mouth Two (2) times a day Unchanged nystatin topical (nystatin 100,000 units/ g topical powder) 1 application Topical Two (2) times a day Unchanged ondansetron (Zofran 4 mg oral tablet) 1 tab(s) by mouth Every 8 hours as needed for Nausea/Vomiting Unchanged pancrelipase (Creon 36,000 units oral delayed release capsule) Unchanged pantoprazole (pantoprazole 40 mg oral enteric coated tablet) 1 tab(s) by mouth Two (2) times a day Unchanged potassium chloride (potassium chloride 10 mEq oral tablet, extended release) 1 tab(s) by mouth Two (2) times a day Take with food. Please take this list to your next doctor s visit. Bring all medications you take, including over the counter medications, herbals and other supplements with you to your doctor s visit. Patients and families are reminded to discard old lists and to update any records with all medication providers or retail pharmacies. Medication Leaflets hydroxyzine (kaci DROX ee zeen) Eddriaguilar What is the most important information I should know about hydroxyzine? You should not use hydroxyzine if you are , especially during the first or second trimester. Hydroxyzine can cause a serious heart problem, especially if you use certain medicines at the same time. Tell your doctor about all your current medicines and any you start or stop using. What is hydroxyzine? Hydroxyzine reduces activity in the central nervous system. It also acts as an antihistamine that reduces the effects of natural chemical histamine in the body. Histamine can produce symptoms of itching, or hives on the skin. Hydroxyzine is used as a sedative to treat anxiety and tension. It is also used together with other medications given during and after general anesthesia. Hydroxyzine is also used to treat allergic skin reactions such as hives or contact dermatitis. Hydroxyzine may also be used for purposes not listed in this medication guide. What should I discuss with my healthcare provider before taking hydroxyzine? You should not use hydroxyzine if you are allergic to it, or if: you have long QT syndrome; you are allergic to cetirizine (Zyrtec) or levocetirizine (Xyzal); or you are in the first trimester of . You should not use hydroxyzine if you are , especially during the first or second trimester. Hydroxyzine could harm the unborn baby or cause defects. Use effective control to prevent while you are using this medicine. To make sure hydroxyzine is safe for you, tell your doctor if you have: blockage in your digestive tract (stomach or intestines); bladder obstruction or other urination problems; glaucoma; heart disease, slow heartbeats; personal or family history of long QT syndrome; an electrolyte imbalance (such as high or low levels of potassium in your blood); if you have recently had a heart attack. It is not known whether hydroxyzine passes into breast milk or if it could harm a nursing baby. You should not breast-feed while using this medicine. Do not give this medicine to a child without medical advice. How should I take hydroxyzine? Follow all directions on your prescription label. Your doctor may occasionally change your dose. Do not use this medicine in larger or smaller amounts or for longer than recommended. Shake the oral suspension (liquid) well just before you measure a dose. Measure liquid medicine with the dosing syringe provided, or with a special dose-measuring spoon or medicine cup. If you do not have a dose-measuring device, ask your pharmacist for one. Hydroxyzine is for short-term use only. You should not take this medicine for longer than 4 months. Call your doctor if your anxiety symptoms do not improve, or if they get worse. Store at room temperature away from moisture and heat. What happens if I miss a dose? Take the missed dose as soon as you remember. Skip the missed dose if it is almost time for your next scheduled dose. Do not take extra medicine to make up the missed dose. What happens if I overdose? Seek emergency medical attention or call the Poison Help line at . Overdose symptoms may include severe drowsiness, nausea, vomiting, uncontrolled muscle movements, or seizure (convulsions). What should I avoid while taking hydroxyzine? This medicine may impair your thinking or reactions. Be careful if you drive or do anything that requires you to be alert. Drinking alcohol with this medicine can cause side effects. What are the possible side effects of hydroxyzine? Get emergency medical help if you have signs of an allergic reaction: hives; difficult breathing; swelling of your face, lips, tongue, or throat. In rare cases, hydroxyzine may cause a severe skin reaction. Stop taking this medicine and call your doctor right away if you have sudden skin redness or a rash that spreads and causes white or yellow pustules, blistering, or peeling. Stop using hydroxyzine and call your doctor at once if you have: fast or pounding heartbeats; headache with chest pain; severe dizziness, fainting; or a seizure (convulsions). Side effects such as drowsiness and confusion may be more likely in older adults. Common side effects may include: drowsiness; headache; dry mouth; or skin rash. This is not a complete list of side effects and others may occur. Call your doctor for medical advice about side effects. You may report side effects to FDA at 9-026-IZZ-1256. What other drugs will affect hydroxyzine? Taking this medicine with other drugs that make you sleepy can worsen this effect. Ask your doctor before taking hydroxyzine with a sleeping pill, narcotic pain medicine, muscle relaxer, or medicine for anxiety, depression, or seizures. Hydroxyzine can cause a serious heart problem, especially if you use certain medicines at the same time, including antibiotics, antidepressants, heart rhythm medicine, antipsychotic medicines, and medicines to treat cancer, malaria, HIV or AIDS. Tell your doctor about all medicines you use, and those you start or stop using during your treatment with hydroxyzine. Other drugs may interact with hydroxyzine, including prescription and irsf-rcd-sfyjqbi medicines, vitamins, and herbal products. Not all possible interactions are listed here. Tell each of your health care providers about all medicines you use now and any medicine you start or stop using. Where can I get more information? Your pharmacist can provide more information about hydroxyzine. Remember, keep this and all other medicines out of the reach of children, never share your medicines with others, and use this medication only for the indication prescribed. Every effort has been made to ensure that the information provided by [employer]') is accurate, up-to-date, and complete, but no guarantee is made to that effect. Drug information contained herein may be time sensitive. [employer] information has been compiled for use by healthcare practitioners and consumers in the [place] and therefore [employer] does not warrant that uses outside of the [place] are appropriate, unless specifically indicated otherwise. [employer] drug information does not endorse drugs, diagnose patients or recommend therapy. [employer] drug information is an informational resource designed to assist licensed healthcare practitioners in caring for their patients and/or to serve consumers viewing this service as a supplement to, and not a substitute for, the expertise, skill, knowledge and judgment of healthcare practitioners. The absence of a warning for a given drug or drug combination in no way should be construed to indicate that the drug or drug combination is safe, effective or appropriate for any given patient. [employer] does not assume any responsibility for any aspect of healthcare administered with the aid of information [employer] provides. The information contained herein is not intended to cover all possible uses, directions, precautions, warnings, drug interactions, allergic reactions, or adverse effects. If you have questions about the drugs you are taking, check with your doctor, nurse or pharmacist. Copyright 6978-8531 [employer]. Version: 8.01. Revision Date: 05/17/2016. Education Materials Benzodiazepine Withdrawal Benzodiazepine ( benzo ) medicines are used for anxiety, other mood problems, seizures, alcohol withdrawal, and as muscle relaxants. If you have been taking a benzodiazepine for more than a few weeks, your body gets used to having it. When you stop taking the medicine, withdrawal symptoms develop. Symptoms The list of possible withdrawal symptoms is very long. Withdrawal can include pain, agitation, restlessness, shakiness, anxiety, headaches, cramps, dizziness, nausea, vomiting, trouble sleeping, and diarrhea, among many others. More severe reactions can include chest pain, trouble breathing, seizures, delusions, hallucinations, high temperatures, and coma. As the medicine clears from your system, your body readjusts to not having it. This period is called detox. Detox usually takes a few weeks. But it may take a few months if you have been taking benzodiazepines for several years. Symptoms will go away when detox is complete. If you have been taking benzodiazepines for a long time, you will likely need medical help to prevent severe withdrawals. This is accomplished through a closely monitored regimen where you gradually cut down and wean off of benzodiazepines over weeks to possibly months rather than stop them all at once (cold turkey). Home care The healthcare provider may prescribe a sedative to help reduce your symptoms. Take this medicine exactly as instructed. Don't take it more often than prescribed. Never take a sedative with alcohol. General care You will need good nutrition during detox. Eat 3 meals a day. Take vitamin and mineral supplements as directed. Don't drink alcohol during your detox. If you can, stay with family or friends who can help and support you as you detox. Don't drive until all symptoms are gone and you are feeling better. Follow-up care Follow up with your healthcare provider, or as advised. Withdrawal can last from a few weeks to a few months. Once you get past it, you will feel better. If you were misusing benzodiazepines, it is essential that you get support and treatment to stay off them. Your healthcare provider can help. Here are some resources for support: Narcotics Anonymous: www.na.org (or check the phone book) National [place] on Alcoholism and Drug Dependence: 947.334.9280, www.ncadd.org You may benefit from a residential detox program. There, you can stay overnight and get supervised attention and help. Look online or in the phone book for listings under Drug Abuse and Treatment Centers. When to seek medical advice Call your healthcare provider right away if any of these occur: Severe shakiness Increasing upper abdominal pain or vomiting Hallucinations Headache or confusion Severe trouble sleeping Depression Feeling that you want to harm yourself or others Call 911 Call 911 if any of these occur: Trouble breathing or swallowing, or wheezing Severe confusion Extreme drowsiness or trouble awakening Fainting or loss of consciousness Rapid heart rate Very low or very high blood pressure Seizure [id number] [employer]. [address] [place] [address], [place] [address]. All rights reserved. This information is not intended as a substitute for professional medical care. Always follow your healthcare professional's instructions. Additional Information VACCINATE! IT SAVES LIVES! Members of the community who have not yet received the COVID-19 vaccine and would like to receive it can visit one of [facility] vaccine clinics. There are many vaccine clinic locations within the [facility]. For locations and available times, please visit [email or web address].go [email or web address] It is important to note that some COVID mobile vaccine clinics are held outdoors and may be canceled in rainy or stormy conditions. To learn more about pediatric vaccinations (ages 5-11), we invite you to visit the [facility] webpage. https://www.[facility].org/pag es/2992-Eocdz-Gzziamygbou-Frequent rs-Enpbp-Dvnglytkn.html To learn more about the COVID-19 vaccine, we invite you to visit the CDC website for a list of frequently asked questions. https://www.cdc.gov/coronavirus/ 19-ncov/vaccines/faq.html [facility] Patient Portal Access Instructions: Stay connected with your healthcare team and access your personal medical information anytime with the [facility] Patient Portal. If you would like a full copy of your medical records please contact the [facility] Medical Records Department Sunday through Sunday between 8a.m. and 4:30p.m. Please follow the directions below to access the portal: 1.Access the email account you provided upon registration to the hospital.2.Look for an invitation email from [facility].3.Open the email and access the invitation link: Accept Invitation to [facility]4.Fill in the required wilkinson to create your account. Sign into [email or web address] with your username and password that you created in the above steps to stay up to date. You can then view a summary of results, a summary of your visits, and the ability to download your summaries to your computer or send the information securely to a physician. Remember that your healthcare information is confidential, so carefully consider who you will allow to register on the [facility] Patient Portal for access to your information. You can also access the [facility] Patient Portal on the [employer] eric. Simply click on Health Records under Health Data and then click on the [facility] logo. HOW TO SAFELY DISPOSE OF PRESCRIPTION MEDICATIONS Please use one of the following methods to safely dispose of your unused medications. 1.Use a drug disposal kit: the drug disposal pouch allows you to safely discard your old and unused drugs. Ask your nurse to give you one when you are discharged.2.Visit a local take-back location: Many local pharmacies and police departments have programs that collect old and unwanted prescription drugs. Call your local pharmacy or go to http://bit.Profista/6C7Oc7f to find one close to you.3.Make use of household items: Use cat litter or old coffee grounds to dispose medications if other options are not available. Mix your drugs with these household products, seal them in an airtight container and throw it into the garbage. Call [facility]: [phone] to be sure your drugs can be disposed of in this way. Some medicines may require a different approach.4.Never flush your medications down the toilet. IF YOU HAVE BEEN PRESCRIBED AN OPIOIDS FOR PAIN If you have been prescribed an opioid (such as hydrocodone, oxycodone or morphine), it is critical to understand the possible side effects and risks of opioid pain medications. Even when taken as directed, opioids can have several side effects including: Tolerance, meaning you might need to take more of a medication for the same pain relief. Nausea, vomiting and/or constipation. Sleepiness, dizziness, dry mouth, confusion, depression or itching. Physical dependence, meaning you have withdrawal symptoms when a medication is stopped ? this can develop within a few days. KNOW YOUR RESPONSIBILITIES It is important to know exactly how much and how often to take the opioid pain medications you are prescribed. Never take opioids in higher amounts or more often than prescribed. Do not combine opioids with alcohol or other drugs that cause drowsiness, such as benzodiazepines, also known as benzos, including diazepam and alprazolam, muscle relaxants or sleep aids. Never sell or share prescription opioids. This is illegal. Store opioids in a secure place and out of reach of others (including children, family, friends and visitors). The last page(s) of this document has been signed and retained as a CHART COPY Signatures Patient Education Materials Benzodiazepine Withdrawal Medication Leaflets Vistaril My discharge plan and instructions have been reviewed and explained to me and ICATHERINE AMY M understand my current condition and have read and understand these discharge instructions. I have received a written copy of the plan/instructions. If I have questions, I am aware that I should contact my doctor. Patient/Sas Programmer Analyst Signature: Date/Time: Relationship to Patient: ___ Witness Name/Signature: Date/Time: [facility] 09-29-2024 Note Exam Date Time Procedure Performing Provider Status 09/29/24 12:33 PM EKG (ED) - CV RODRIGO GUZMÁN DO; Auth (Verified) ECG Final Report SINUS RHYTHM CONSIDER ANTERIOR INFARCT Electronic Signature: RODRIGO GUZMÁN DO 09/29/2024 14:26:30 [id number] Dis[facility] Patient Education 09/26/2024 06:48:53 Anxiety Reaction Anxiety Reaction Anxiety is the feeling we all get when we think something bad might happen. It is a normal responseto stress and usually causes only a mild reaction. When anxiety becomes more severe, it can interfere with daily life. In some cases, you may not even be aware of what it is you re anxious about. There may also be a genetic link or it may be a learned behavior in the home. Both psychological and physical triggers cause stress reaction. It's often a response to fear or emotional stress, real or imagined. This stress may come from home, family, work, or social relationships. During an anxiety reaction, you may feel: Helpless Nervous Depressed Irritable Your body may show signs of anxiety in many ways. You may experience: Dry mouth Shakiness Dizziness Weakness Trouble breathing Breathing fast (hyperventilating) Chest pressure Sweating Headache Nausea Diarrhea Tiredness Inability to sleep Sexual problems Home care Try to locate the sources of stress in your life. They may not be obvious. These may include: oDaily hassles of life (such as traffic jams, missed appointments, or car troubles) oMajor life changes, both good (new baby or job promotion) and bad (loss of job or loss of loved one) oOverload: feeling that you have too many responsibilities and can't take care of all of them at once oFeeling helpless or feeling that your problems are beyond what you re able to solve Notice how your body reacts to stress. Learn to listen to your body signals. This will help you take action before the stress becomes severe. When you can, do something about the source of your stress. (Avoid hassles, limit the amount of change that happens in your life at one time and take a break when you feel overloaded). Unfortunately, many stressful situations can't be avoided. It is necessary to learn how to better manage stress. There are many proven methods that will reduce your anxiety. These include simple things like exercise, good nutrition, and adequate rest. Also, there are certain techniques that are helpful: oRelaxation oBreathing exercises oVisualization oBiofeedback oMeditation For more information about this, consult your healthcare provider or go to a local bookstore and review the many books and tapes available on this subject. Follow-up care If you feel that your anxiety is not responding to self-help measures, contact your healthcare provider or make an appointment with a counselor. You may need short-term psychological counseling and temporary medicine to help you manage stress. Call 911 Call 911 if any of these happen: Trouble breathing Confusion Drowsiness or trouble wakening Fainting or loss of consciousness Rapid heart rate Seizure New chest pain that becomes more severe, lasts longer, or spreads into your shoulder, arm, neck, jaw, or back When to seek medical advice Call your healthcare provider right away if any of these happen: Your symptoms get worse Severe headache not relieved by rest and mild pain reliever [id number] [employer]. [address] [place] [address]. All rights reserved. This information is not intended as a substitute for professional medical care. Always follow yourhealthcare professional's instructions. Follow Up Care 09/26/2024 06:30:44 With:BERENICE BOWLING Address: [address] [place] [address] [place] [address] [phone] Business (1) When:09/26/2024 Comments:Contact your doctor regardingl Xanax prescription refill.Return to the ED if symptoms worsen. [facility] 07-25-2025 Note Discharge Instructions Thank you for allowing [facility] to assist you with your healthcare needs. The following is importantdischarge information regarding your hospital visit. Diagnosis from Today's Visit Anxiety reaction What to Do Next Instructions from Your Care Team No qualifying data available. Post Acute Orders No qualifying data available. You Need to Schedule the Following Appointments Follow Up with BERENICE BOWLING When:09/26/2024 12:00 AM EDT Where:[address] [place] [address]- [phone] Business (1) Additional Information: Contact your doctor regardingl Xanax prescription refill. Return to the ED if symptoms worsen. Allergies NSAIDS due to bypass surgery Vicodin Rash codeine Rash sulfa drugs Rash traMADol Unknown Medications Please ask your primary doctor or pharmacist before taking any other medication not listed, including over the counter drugs, herbal medications, vitamins and or supplements as they may interact withyour home medications. What How Much When Why Instructions Last Dose Unchanged acetaminophen (acetaminophen 500 mg oral tablet) 2 tab(s) by mouth Three (3) times a day as needed for pain or fever Unchanged ALPRAZolam (ALPRAZolam 0.5 mg oral tablet) 1 tab(s) by mouth Two (2) times a day ISABELLA (generalized anxiety disorder) Duration: 30 Days Unchanged cetirizine (cetirizine 10 mg oral tablet) 1 tab(s) by mouth Once a day Unchanged cholecalciferol (Vitamin D3 10 mcg (400 intl units) oral tablet) 1 tab(s) by mouth Every day Unchanged cyanocobalamin (Vitamin B-12 500 mcg oral tablet) 1 tab(s) by mouth Once a day Unchanged diclofenac topical (Voltaren 1% topical gel) 2 gram(s) Topical Four (4) times a day Unchanged ferrous sulfate (ferrous sulfate 325 mg (65 mg elemental iron) oral delayed release tablet) 1 tab(s) by mouth Once a day Unchanged FLUoxetine (FLUoxetine 40 mg oral capsule) 2 cap by mouth Once a day Unchanged fluticasone nasal (Flonase 50 mcg/ inh nasal spray) 2 spray(s) each nostril Once a day (in the morning) Unchanged folic acid (folic acid 1 mg oral tablet) 1 tab(s) by mouth Once a day Unchanged gabapentin (gabapentin 300 mg oral capsule) 1 cap by mouth Three (3) times a day Peripheral neuropathy Duration: 90 Days Unchanged hydroCHLOROthiazide (hydroCHLOROthiazide 25 mg oral tablet) 1 tab(s) by mouth Once a day Unchanged losartan (losartan 25 mg oral tablet) 1 tab(s) by mouth Once a day Unchanged metFORMIN (MetFORMIN (Eqv-Glucophage XR) 500 mg oral tablet, EXTENDED RELEASE) 2 tab(s) by mouth Two (2) times a day Unchanged nystatin topical (nystatin 100,000 units/ g topical powder) 1 application Topical Two (2) times a day Unchanged ondansetron (Zofran 4 mg oral tablet) 1 tab(s) by mouth Every 8 hours as needed for Nausea/Vomiting Unchanged pancrelipase (Creon 36,000 units oral delayed release capsule) Unchanged pantoprazole (pantoprazole 40 mg oral enteric coated tablet) 1 tab(s) by mouth Two (2) times a day Unchanged potassium chloride (potassium chloride 10 mEq oral tablet, extended release) 1 tab(s) by mouth Two (2) times a day Take with food. Please take this list to your next doctor s visit. Bring all medications you take, including over the counter medications, herbals and other supplements with you to your doctor s visit. Patients and families are reminded to discard old lists and to update any records with all medication providers or retail pharmacies. Education Materials Anxiety Reaction Anxiety is the feeling we all get when we think something bad might happen. It is a normal responseto stress and usually causes only a mild reaction. When anxiety becomes more severe, it can interfere with daily life. In some cases, you may not even be aware of what it is you re anxious about. There may also be a genetic link or it may be a learned behavior in the home. Both psychological and physical triggers cause stress reaction. It's often a response to fear or emotional stress, real or imagined. This stress may come from home, family, work, or social relationships. During an anxiety reaction, you may feel: Helpless Nervous Depressed Irritable Your body may show signs of anxiety in many ways. You may experience: Dry mouth Shakiness Dizziness Weakness Trouble breathing Breathing fast (hyperventilating) Chest pressure Sweating Headache Nausea Diarrhea Tiredness Inability to sleep Sexual problems Home care Try to locate the sources of stress in your life. They may not be obvious. These may include: oDaily hassles of life (such as traffic jams, missed appointments, or car troubles) oMajor life changes, both good (new baby or job promotion) and bad (loss of job or loss of loved one) oOverload: feeling that you have too many responsibilities and can't take care of all of them at once oFeeling helpless or feeling that your problems are beyond what you re able to solve Notice how your body reacts to stress. Learn to listen to your body signals. This will help you take action before the stress becomes severe. When you can, do something about the source of your stress. (Avoid hassles, limit the amount of change that happens in your life at one time and take a break when you feel overloaded). Unfortunately, many stressful situations can't be avoided. It is necessary to learn how to better manage stress. There are many proven methods that will reduce your anxiety. These include simple things like exercise, good nutrition, and adequate rest. Also, there are certain techniques that are helpful: oRelaxation oBreathing exercises oVisualization oBiofeedback oMeditation For more information about this, consult your healthcare provider or go to a local bookstore and review the many books and tapes available on this subject. Follow-up care If you feel that your anxiety is not responding to self-help measures, contact your healthcare provider or make an appointment with a counselor. You may need short-term psychological counseling and temporary medicine to help you manage stress. Call 911 Call 911 if any of these happen: Trouble breathing Confusion Drowsiness or trouble wakening Fainting or loss of consciousness Rapid heart rate Seizure New chest pain that becomes more severe, lasts longer, or spreads into your shoulder, arm, neck, jaw, or back When to seek medical advice Call your healthcare provider right away if any of these happen: Your symptoms get worse Severe headache not relieved by rest and mild pain reliever [id number] [employer] [address], [place] [address]. All rights reserved. This information is not intended as a substitute for professional medical care. Always follow yourhealthcare professional's instructions. Additional Information VACCINATE! IT SAVES LIVES! Members of the community who have not yet received the COVID-19 vaccine and would like to receive it can visit one of [facility] vaccine clinics. There are many vaccine clinic locations within the [facility]. For locations and available times, please visit www.[email or web address].[place].gov/. It is important to note that some COVID mobile vaccine clinics are held outdoors and may be canceled in rainy or stormy conditions. To learn more about pediatric vaccinations (ages 5-11), we invite you to visit the [facility] webpage. https://www.[email or web address].org/pages/6342-Kfgdn-Kseqrtbctuq-Mjrlyivedg-Bgurq-Sic stions.htmlTo learn more about the COVID-19 vaccine, we invite you to visit the CDC website for a list of frequently asked questions. https://www.cdc.gov/coronavirus/2019-ncov/vaccines/faq.html [facility] Patient Portal Access Instructions: Stay connected with your healthcare team and access your personal medical information anytime with the [facility] Patient Portal. If you would like a full copy of your medical records please contact the [facility] Medical Records Department Sunday through Sunday between 8a.m. and 4:30p.m. Please follow the directions below to access the portal: 1.Access the email account you provided upon registration to the hospital.2.Look for an invitation email from [facility].3.Open the email and access the invitation link: Accept Invitation to [facility]4.Fill in the required wilkinson to create your account. Sign into [email or web address] with your username and password that you created in the above steps to stay up to date. You can then view a summary of results, a summary of your visits, and the ability to download your summaries to your computer or send the information securely to a physician. Remember that your healthcare information is confidential, so carefully consider who you will allow to register on the [facility] Patient Portal for access to your information. You can also access the [facility] Patient Portal on the [employer] eric. Simply click on Health Records under [employer] and then click on the [employer] logo. HOW TO SAFELY DISPOSE OF PRESCRIPTION MEDICATIONS Please use one of the following methods to safely dispose of your unused medications. 1.Use a drug disposal kit: the drug disposal pouch allows you to safely discard your old and unuseddrugs. Ask your nurse to give you one when you are discharged.2.Visit a local take-back location: Many local pharmacies and police departments have programs that collect old and unwanted prescriptiondrugs. Call your local pharmacy or go to http://AkesoGenX.Profista/9F4Tb4w to find one close to you.3.Make use of household items: Use cat litter or old coffee grounds to dispose medications if other options arenot available. Mix your drugs with these household products, seal them in an airtight container andthrow it into the garbage. Call [facility]: [phone] to be sure your drugs can be disposed of in this way. Some medicines may require a different approach.4.Never flush your medications down the toilet. IF YOU HAVE BEEN PRESCRIBED AN OPIOIDS FOR PAIN If you have been prescribed an opioid (such as hydrocodone, oxycodone or morphine), it is critical to understand the possible side effects and risks of opioid pain medications. Even when taken as directed, opioids can have several side effects including: Tolerance, meaning you might need to take more of a medication for the same pain relief. Nausea, vomiting and/or constipation. Sleepiness, dizziness, dry mouth, confusion, depression or itching. Physical dependence, meaning you have withdrawal symptoms when a medication is stopped ? this can develop within a few days. KNOW YOUR RESPONSIBILITIES It is important to know exactly how much and how often to take the opioid pain medications you are prescribed. Never take opioids in higher amounts or more often than prescribed. Do not combine opioids with alcohol or other drugs that cause drowsiness, such as benzodiazepines, also known as benzos,including diazepam and alprazolam, muscle relaxants or sleep aids. Never sell or share prescriptionopioids. This is illegal. Store opioids in a secure place and out of reach of others (including children, family, friends and visitors). The last page(s) of this document has been signed and retained as a CHART COPY Signatures Patient Education Materials Anxiety Reaction Medication Leaflets My discharge plan and instructions have been reviewed and explained to me and ICATHERINE AMY M understand my current condition and have read and understand these discharge instructions. I have received a written copy of the plan/instructions. If I have questions, I am aware that I should contact my doctor. Patient/Sas Programmer Analyst Signature: Date/Time: Relationship to Patient: Witness Name/Signature: Date/Time: [facility]06-12-2025 History and physical note Author Moncho Carrillo [facility] Note Date/Time August 14, 2024 10:0 6am [facility] Medical Records Department [address] [place] [address] History & Physical Exam 08/14/24 1000 MR#: [id number] Acct: [id number] Name: BELLE HAMM Rep #:[id number] : 1970 54 From: Moncho Carrillo DO PCP: Dr. Berenice Bowling, DO Status: REG [facility] Location: [place] [address] HPI - General General Date of Admission: 08/14/24 Date of Service: 08/14/24 Chief Complaint: Dysphagia and personal history of polyps HPI Narrative *[facility] established 04.14.21 for screening colonoscopy and intermittent esophageal dysphagia. History of Cristian-en-Y gastric bypass 2019; cholecystectomy 09.11.18 ? EGD and colonoscopy 06.13.21 Irregular Zline; small hiatal hernia;Cristian-en-y gastrojejunostomy with healthy anastomosis. Metaplasia neg. ? Colonoscopy hemorrhoids; diverticulosis. No specimens OV 09.30.21 still has intermittent dysphagia but finds PPI and gas-X helpful. Start reglan and PPI BID. OV 01.11.23 she has been having nausea followed by dysphagia with intermittent emesis following PO intake. She is not taking protonix or reglan. BM pattern is regular and without difficulty. ? EGD 01.30.23 esophageal stenosis, Savary 60F; irregular Zline; medium hiatal hernia; Cristian-en-Y with healthy anastomosis. No metaplasia ? Upper GISBFT 02.12.23 no acute/chronic abnormality. OV 02.16. feels swallowing, nausea have improved but are still present; epigastric pain continues. Admits to poor diet as she does a lot of traveling. OV 5.24 pt reports that N/V have improved and occur maybe once or twice a month. Pt continues to struggle with swallowing and feels like food is getting stuck in her throat. EGD 09.20.23 Benign-appearing esophageal stenosis. Dilated. Gastric bypass with a normal-sized pouch and intact staple line. Gastrojejunal anastomosis characterized by healthy appearing mucosa. Normal examined jejunum. No specimenscollected. EGD 11.16.23 Abnormal esophageal motility, established esophageal spasm. Small hiatal hernia. Cristian-en-Y gastrojejunostomy with gastrojejunal anastomosis characterized by ulceration. Suspected jejunal inflammation characterized by erosions and erythema. Biopsied. GET 02.20.24 rapid emptying OV 1 pt reports that she was recently diagnosed with borderline anemia and is seeing a sales contracts analyst through . Pt reports nausea once a week. Pt would like more information regarding dumping syndrome. [facility] Medical History (Updated 08/14/24 @ 10:[address] Ivan Friend, DO) Dysphagia Alcohol use History of hiatal hernia Sleep apnea Wears glasses Anxiety Diabetes Restless legs Dietary restriction Gastric reflux Former smoker CPAP (continuous positive airway pressure) dependence Neuropathy History of echocardiogram History of stress test Hypertension Encounter for screening for malignant neoplasm of colon Home Medications ?Medication ?Instructions ?Recorded ?Last Taken ?Type alprazolam 0.25 mg tablet (Xanax) 0.5 mg PO PRN PRN An xiety 06/08/21 08/13/24 History fluoxetine 40 mg capsule (Prozac) 80 mg PO DAILY 06/0808/13/24 History gabapentin 100 mg tablet 300 mg PO TID 06/08/2108/13 History hydrochlorothiazide 25 mg tablet 25 mg PO DAILY 08/13/24 History metformin 1,000 mg tablet 1,000 mg PO BID 06/08/2101/27 History cetirizine 10 mg tablet 10 mg PO DAILY 01/23/2308/03 History pantoprazole 20 mg tablet,delayed 20 mg PO BID 4 08/13/24 History release ondansetron 4 mg disintegrating 4 mg PO Q8H PRN nausea and 10/11/23 08/12/24 Rx tablet vomiting #90 tabs biotin 2,500 mcg capsule 5 mg PO DAILY 01/04/2408/13 History bisacodyl 5 mg tablet,delayed 20 mg (4 x 5 mg) PO ONCE #4 tabs 03/12/24 08/13/24 Rx release (Dulcolax (bisacodyl)) ferrous sulfate 325 mg (65 mg 325 mg PO QDAY 03/12/24 08/11/24 History iron) tablet evklga-nrauuyvm-lpybvxh 3 cap PO QAC #300 caps 03/1208/12/24 Rx 36,000-114,000-180,000 unit capsule,delay rel (Creon) polyethylene glycol 3350 17 238 g PO ONCE #238 grams 0 03/12/24 08/14/24 Rx gram/dose oral powder (Miralax) potassium chloride 10 mEq 10 meq PO BID 03/12/2408/13 History capsule,extended release folic acid 1 mg tablet 1 mg PO DAILY #30 TABLETS 08/13/24 Rx mecobalamin (vitamin B12) 500 mcg 500 mcg PO DAILY #30 tabs 08/06/24 08/13/24 Rx chewable tablet cholecalciferol (vitamin D3) 10 10 mcg PO QDAY #30 cap s 08/08/24 08/13/24 Rx mcg (400 unit) capsule losartan 25 mg tablet 25 mg PO DAILY 08/11/2408/03 History Allergy/AdvReac Type Severity Reaction Status Date / Time codeine (From Allergy Rash Verified 08/14/24 08:55 Tylenol-Codeine) hydrocodone (From Vicodin) Allergy Rash Verified 08/14/24 08:55 Sulfa (Sulfonamide Allergy Rash Verified 08/14/24 08:55 Antibiotics) NSAIDS (Non-Steroidal AdvReac Other Verified 08/14/24 08:55 Anti-Inflamma Family History Brother Diabetes Heart disease Surgical History H/O bilateral breast reduction surgery History of esophagogastroduodenoscopy (EGD) Bariatric surgery status Hx of colonoscopy History of esophagogastroduodenoscopy (EGD) Hx of hernia repair History of tonsillectomy and adenoidectomy Hx of foot surgery Hx of total hysterectomy Hx of gastric bypass Hx laparoscopic cholecystectomy Social History Smoking Status: Former smoker how long ago did patient quit smoking: quit 2012 alcohol intake: never substance use type: does not use additional social history: denies vaping, denies marijuana use, denies edible, denies aspirin use denies ibuprofen ROS Constitutional Constitutional: Denies fatigue, fever(s), poor appetite, weight gain or weight loss Gastrointestinal Gastrointestinal: Denies belching, bloating, change in bowel habits, change in stool character, chewing difficulty, coffee ground emesis, constipation, cramping, diarrhea, dyspepsia, dysphagia, early satiety, excessive flatus, fecalincontinence, heartburn, hematemesis, hematochezia, hemorrhoids, loose stools, melena, nausea, odynophagia, rectal bleeding, tenesmus, vomiting or weight changes Vital Signs Vital Signs Vital Signs: 08/14/24 08:58 08/14/24 08:58 Temperature 97.9 F Temperature Source Temporal Pulse Rate 57 L Respiratory Rate 18 Respiratory Pattern Normal Blood Pressure 121/83 H Blood Pressure Mean 95 Blood Pressure Source Monitor Blood Pressure Position Semi-Fowlers Blood Pressure Location Left Forearm Pulse Ox 100 Oxygen Delivery Method Room Air Weight Weight: 218 lb 4.122 oz Body Mass Index (BMI) 39.9 Physical Exam Const alert, oriented x3, no apparent distress and healthy appearing General Appearance: cooperative GI normal to inspection, nondistended, normoactive bowel sounds, soft to palpation,non-tender and non-distended Percussion: normal to percussion Rectal Exam: deferred Results Lab / Micro Data Labs: Laboratory Results - last 24 hr 08/14/24 08:46: POC Glucose 138 H Assessment & Plan Assessment/Plan (1) Nausea: (2) Personal history of colonic polyps: PLAN: Assessment and Plan Assessment and Plan (1) Dysphagia: Status: Chronic Qualifiers: Dysphagia type: esophageal phase Qualified Code(s): R13.19 - Other dysphagia Plan: She will need to undergo an upper endoscopy to evaluate upper GI tract with botox and possible dilation. She was explained alternatives, risk, benefits include not withstanding bleeding, pectin, sepsis, perforation, need for return to . She will have an ASA of 3. (2) History of Cristian-en-Y gastric bypass: Status: Chronic Comment: 2019 (3) Nausea: Status: Chronic Plan: Chronic nausea can be a side effect from gastric bypass due to removal of gastrin. I would like to get a upper GI with follow-through plus or minus gastric emptying study (4) GERD (gastroesophageal reflux disease): Status: Inactive Qualifiers: Esophagitis presence: with esophagitis Esophagitis bleeding: without hemorrhage Qualified Code(s): K21.00 - Gastro-esophageal reflux disease with esophagitis, without bleeding Plan: She is having worsening gastroesophageal reflux disease that I thought was secondary to bile induced gastritis. She underwent an upper endoscopy was discovered to have a patent wire with a normal gastric pouch. There is no ulcerations at the proximal anastomosis with distal anastomosis. Biopsies were taken throughout the small bowel and it did show mild chronic inflammation with some very small inflammation at the site of surgery. I will give her a course of Reglan therapy along with switching her PPI to Protonix therapy (5) Encounter for screening for malignant neoplasm of colon: Status: Inactive Plan: Her colonoscopy did not reveal any adenomatous polyp. She did have diverticulardisease. She will need a repeat colonoscopy in 5 years. 08/14/24 1006 <Electronically signed by Moncho Carrillo DO> Cosigner Signature (if applicable): CC: Dr. Berenice Bowling DO; Moncho Carrillo DO~ Signed [facility] Work Phone: [phone]) 630-169106-12-2025 Procedure note [facility] Medical Records Department [address] [place] [address] Colonoscopy Report MR#: [id number] Acct: [id number] Name: BELLE HAMM Rep #:[id number] : 1970 54 From: Moncho Carrillo DO PCP: Dr. Berenice Bowling DO Status: REG [facility] Patient Name: Belle Hamm Procedure Date: 08/14/2024 10:24 AM Date of : 1970 Age: 54 Procedure: Colonoscopy Indications: High risk colon cancer surveillance: Personal history of colonic polyps Providers: Moncho Carrillo DO Referring MD: Berenice Bowling Medicines: Monitored Anesthesia Care Patient Profile: This is a 54 year old female. Refer to note in patient chart for documentation of history and physical. Patient has symptoms of dysphagia with both liquids and solids, chronic heartburn and chronic nausea. Last Colonoscopy: several years ago. Complications: No immediate complications. Procedure: Pre-Anesthesia Assessment: - Prior to the procedure, a History and Physical was performed, and patient medications and allergies were reviewed. The patient is competent. The risks and benefits of the procedure and the sedation options and risks were discussed with the patient. All questions were answered and informed consent was obtained. Patient identification and proposed procedure were verified by the physician. Mental Status Examination: alert and oriented. Airway Examination: normal oropharyngeal airway and neck mobility. Respiratory Examination: clear to auscultation. CV Examination: normal. Prophylactic Antibiotics: The patient does not require prophylactic antibiotics. Prior Anticoagulants: The patient has taken no anticoagulant or antiplatelet agents. ASA Grade Assessment: II - A patient with mild systemic disease. After reviewing the risks and benefits, the patient was deemed in satisfactory condition to undergo the procedure. The anesthesia plan was to use monitored anesthesia care (MAC). Immediately prior to administration of medications, the patient was re-assessed for adequacy to receive sedatives. The heart rate, respiratory rate, oxygen saturations, blood pressure, adequacy of pulmonary ventilation, and response to care were monitored throughout the procedure. The physical status of the patient was re-assessed after the procedure. After I obtained informed consent, the scope was passed under direct vision. Throughout the procedure, the patient's blood pressure, pulse, and oxygen saturations were monitored continuously. The pediatric colonoscope was introduced through the anus and advanced to the terminal ileum. The colonoscopy was performed without difficulty. The patient tolerated the procedure well. The quality of the bowel preparation was good. The ileocecal valve, appendiceal orifice, and rectum were photographed. Scope In: 10:26:00 AM Scope Withdrawal Time 0 hours 6 minutes 49 seconds Scope Out: 10:43:44 AM Total Procedure Duration Time 0 hours 17 minutes 44 seconds Findings: The perianal and digital rectal examinations were normal. Multiple small-mouthed diverticula were found in the recto-sigmoid colon and sigmoid colon. The exam was otherwise without abnormality on direct and retroflexion views. A patchy area of the distal ileum was congested. Biopsies were taken with a cold forceps for histology. Verification of patient identification for the specimen was done. Estimated blood loss was minimal. Impression: - Diverticulosis in the recto-sigmoid colon and in the sigmoid colon. - The examination was otherwise normal on direct and retroflexion views. - Congested mucosa in the distal ileum. Biopsied. Recommendation: - Discharge patient to home. - Resume previous diet. - Continue present medications. - Await pathology results. - Repeat colonoscopy in 5 years for surveillance. Procedure Code(s): --- Professional --- 67570, Colonoscopy, flexible; with biopsy, single or multiple CPT copyright 2021 [employer]. All rights reserved. The codes documented in this report are preliminary and upon middle school baseball coach review may be revised to meet current compliance requirements. Moncho Carrillo DO 08/14/2024 11:03:51 AM This report has been signed electronically. Number of Addenda: 0 Note Initiated On: 08/14/2024 10:24 AM 08/14/24 1104 Date _ Moncho Carrillo DO Cosigner Signature: Date (if indicated) CC: Dr. Berenice Bowling DO; Moncho Carrillo DO ~ Date Dictated: 08/14/24 1024 Date Transcribed: Supervisor Cutting And Boning: RF Signed [facility]06-12-2025 Procedure note [facility] Medical Records Department [address] [place] [address] Operative Report - CC Letter MR#: [id number] Acct: [id number] Name: BELLE HAMM Rep #:[id number] : 1970 54 From: Moncho Carrillo DO PCP: Dr. Berenice Bowling DO Status: REG [facility] 08/14/2024 Berenice Bowling Re : Colonoscopy procedure for Belle Hamm Colleen Bowling This procedure was performed on , August 14, 2024. My impressions and recommendations are as follows: Impressions : - Diverticulosis in the recto-sigmoid colon and in the sigmoid colon. - The examination was otherwise normal on direct and retroflexion views. - Congested mucosa in the distal ileum. Biopsied. Recommendations : - Discharge patient to home. - Resume previous diet. - Continue present medications. - Await pathology results. - Repeat colonoscopy in 5 years for surveillance. My findings are described in the full procedure note, which is enclosed. If I can be of further assistance, please feel free to contact me at . Sincerely, Moncho Carrillo DO 08/14/2024 11:03:51 AM This report has been signed electronically. 08/14/24 1104 Date _ Moncho Carrillo DO Cosignmichelle Signature: Date (if indicated) CC: Dr. Berenice Bowling DO; Moncho Carrillo DO ~ Date Dictated: 08/14/24 1024 Date Transcribed: Supervisor Cutting And Boning: RF Signed [facility]06-12-2025 Consult note [facility] Medical Records Department [address] [place] [address] Anesthesia Postop Eval II 08/14/24 1102 MR#: [id number] Acct: [id number] Name: BELLE HAMM Rep #:[id number] : 1970 54 From: Gino Carter MD PCP: Dr. Berenice Bowling, Status: REG [facility] Y Race: C Location: [facility]14-1 Anesthesia Postop Eval I Sum Postop Eval Completion status Anesthesia document: Postop Eval 1 completed: Yes Anesthesia Postop Eval I Summary Anesthesia Postop Eval I Summary: Anesthesia Postop Eval I: Assessment Summary Airway patent Yes 08/14/24 10:53 [email or web address] Spontaneous unlabored Yes 08/14/24 10:53 [email or web address] respirations Mental status Awake,Calm 08/14/24 10:53 [email or web address] nausea No 08/14/24 10:53 [email or web address] Vomiting No 08/14/24 10:53 [email or web address] Anesthesia Postop Eval I: Fluid Summary Crystalloid volume administer 600 08/14/24 10:53 [email or web address] (ml) Colloids volume administered ( ml) Blood Product volume administered (ml) Total IV fluid infused 600 08/14/24 10:53 [email or web address] Anesthesia Postop Eval I: Summary Notes Anesthesia Complication No 08/14/24 10:53 [email or web address] Anesthesia Complication Comment: Post-operative progress note Anesthesia: Postop Eval II Evaluation Mental status: Awake Pain Level: 0 nausea: No Vomiting: No 08/14/24 1102 > Date _ Gino Carter MD [facility] Signature: Date CC: ~ Signed [facility]06-12-2025 Consult note Author Gino Carter [facility] Note Date/Time August 14, 2024 8:55 am [facility] Medical Records Department [address] [place] [address] Pre-Anesthesia Evaluation 08/14/24 0855 MR#: [id number] Acct: [id number] Name: BELLE HAMM Rep #:[id number] : 1970 54 From: Gino Carter MD PCP: Dr. Berenice Bowling, DO Status: REG [facility] Y Race: C Location: [place] [address] ASA Classification* ASA Classification ASA Classification: 2 Assessment & Plan Anesthesia* Anesthesia Assessment Anesthesia Assessment: Discussed sedation and/or anesthesia options, risks, benefits, and alternatives with patient/parents/legal guardian/POA. Questions invited. The patient/parents/legal guardian/POA seems to understand and agrees to proceedwith anesthesia plan. Reviewed the physical assessment, medical history, allergy history and patient home medications list prior to surgery/procedure/anesthetic and documented any changes. Performed airway and anesthesia risk assessments. Anesthesia Type Anesthesia Type: MAC Anesthesia Focused Assessment* Airway Assessment Mouth opens: >3 cm Mallampati Score: II Labs Anesthesia Preop lab: CBC WBC 6.0 K/mm3 (4.4-11.0) 12/19/23 10:40 12/19/23 RBC 4.11 M/mm3 (4.2-5.4) L 12/19/23 10:40 12/19/23 Hgb 12.0 g/dL (12.0-15.0) 12/19/23 10:40 12/19/23 Hct 37.8 % (37-47) 12/19/23 10:40 12/19/23 Plt Count 256 K/mm3 (150-450) 12/19/23 10:40 12/19/23 CHEMISTRY Potassium 3.6 mmol/L (3.5-5.1) 12/19/23 10:40 12/19/23 Sodium 137 mmol/L (136-145) 12/19/23 10:40 12/19/23 BUN 11 mg/dL (7-18) 12/19/23 10:40 12/19/23 Creatinine 0.94 mg/dL (0.55-1.02) 12/19/23 10:40 12/19/23 Glucose 110 mg/dL (74-106) H 12/19/23 10:40 12/19/23 POC Glucose 116 mg/dL (74-106) H 01/18/24 06:13 01/18/24 COAG Pre-Assessment Diagnosis/Proposed Procedure Planned Operative Procedure(s): COLONOSCOPY, EGD Anesthesia History 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 When Was Last Pacemaker Check QUESTION #4 FULL TEXT: You/Your Family Experience fever (hyperthermia) with Anesthesia Last Oral Intake Last Oral intake: Last Oral Intake NPO since Meds taken in AM with sips of water? Meds patient instructed to take am of surgery PONV PONV - small business consultant: PONV - small business consultant Female Yes 08/11/24 15:22 HX of Motion Sickness No 08/11/24 15:22 HX of N/V After Surgery No 08/11/24 15:22 Non-Smoker Yes 08/11/24 15:22 Duration of Surgery greater No 08/11/24 15:22 than 60 minutes Number of Risk Factors 2 08/11/24 15:22 PONV Score Moderate Risk 08/11/24 15:22 Height & Weight Height & Weight: Anesthesia: Height & Weight Height 5 ft 2 in 04/02/24 09:05 Respiratory Assessment Respiratory Assessment - small business consultant: Respiratory Tract Infection Hx - small business consultant Hx Respiratory Tract Infection No 08/11/24 15:22 STOP Sleep Apnea STOP Sleep Apnea - small business consultant: STOP Sleep Apnea - small business consultant Hx Hypertension Yes: CONTROLLED WITH MEDS 08/11/24 15:22 Hx Sleep Apnea Yes 08/11/24 15:22 CPAP Yes 08/11/24 15:22 BIPAP No 08/11/24 15:22 Do you snore loudly (louder than talking or can be heard Do you often feel tired/ fatigued/ sleepy during daytime? Has anyone observed you stop breathing during sleep? STOP Results Positive 08/11/24 15:22 QUESTION #5 FULL TEXT : Do you snore loudly (louder than talking or can be heard through closed doors)? 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 Specify any problems Hx of Preganancy in last 3 No 08/11/24 15:22 Months Nurse Filling Out Transfusion [email or web address] 08/11/24 15:22 & Questions: Date: 08/11/24 08/11/24 15:22 Time: :08/11/24 15:22 Patient unable to answer at this time (ie. confused, unrespo /Reproduction History /Reproductive History - small business consultant: /Reproductive Hx- small business consultant Hx Now No 08/11/24 15:22 Gestational Age (in weeks): EDC: Hx Hx Para Hx Section SAB No 08/11/24 15:22 Active Medications Active Medications: Current Medications Generic Name Dose Route Start Last Admin Trade Name Freq PRN Reason Stop Dose Admin Lactated Ringer's 1,000 mls @ 15 mls/hr 08/14/24 08:30 IV .Q48H BERNADETTE PFSH Medical History Alcohol use History of hiatal hernia Sleep apnea Wears glasses Anxiety Diabetes Restless legs Dietary restriction Gastric reflux Former smoker CPAP (continuous positive airway pressure) dependence Neuropathy History of echocardiogram History of stress test Hypertension Encounter for screening for malignant neoplasm of colon Home Medications ?Medication ?Instructions ?Recorded ?Last Taken ?Type alprazolam 0.25 mg tablet (Xanax) 0.5 mg PO PRN PRN An xiety 06/08/21 11/16/23 History fluoxetine 40 mg capsule (Prozac) 80 mg PO DAILY 06/0809/19/23 08:00 History gabapentin 100 mg tablet 300 mg PO TID 06/08/2111/15 History hydrochlorothiazide 25 mg tablet 25 mg PO DAILY 09/19/23 08:00 History metformin 1,000 mg tablet 1,000 mg PO BID 06/08/21 20:00 History cetirizine 10 mg tablet 10 mg PO DAILY 01/23/2309/02 History pantoprazole 20 mg tablet,delayed 20 mg PO BID 4 09/19/23 22:00 History release ondansetron 4 mg disintegrating 4 mg PO Q8H PRN nausea and 10/11/23 Unknown Rx tablet vomiting #90 tabs biotin 2,500 mcg capsule 5 mg PO DAILY 01/04/24 Unkno wn History bisacodyl 5 mg tablet,delayed 20 mg (4 x 5 mg) PO ONCE #4 tabs 03/12/24 Unknown Rx release (Dulcolax (bisacodyl)) ferrous sulfate 325 mg (65 mg 325 mg PO QDAY 03/12/24 08/11/24 History iron) tablet sfsghd-dzxwjfoa-ekiuyjz 3 cap PO QAC #300 caps 03/12 Unknown Rx 36,000-114,000-180,000 unit capsule,delay rel (Creon) polyethylene glycol 3350 17 238 g PO ONCE #238 grams 0 03/12/24 Unknown Rx gram/dose oral powder (Miralax) potassium chloride 10 mEq 10 meq PO BID 03/12/24 Unkno wn History capsule,extended release folic acid 1 mg tablet 1 mg PO DAILY #30 TABLETS Unknown Rx mecobalamin (vitamin B12) 500 mcg 500 mcg PO DAILY #30 tabs 08/06/24 Unknown Rx chewable tablet cholecalciferol (vitamin D3) 10 10 mcg PO QDAY #30 cap s 08/08/24 Unknown Rx mcg (400 unit) capsule losartan 25 mg tablet 25 mg PO DAILY 08/11/24 Unkn own History Allergy/AdvReac Type Severity Reaction Status Date / Time codeine (From Allergy Rash Verified 08/14/24 08:55 Tylenol-Codeine) hydrocodone (From Vicodin) Allergy Rash Verified 08/14/24 08:55 Sulfa (Sulfonamide Allergy Rash Verified 08/14/24 08:55 Antibiotics) NSAIDS (Non-Steroidal AdvReac Other Verified 08/14/24 08:55 Anti-Inflamma Family History Brother Diabetes Heart disease Surgical History H/O bilateral breast reduction surgery History of esophagogastroduodenoscopy (EGD) Bariatric surgery status Hx of colonoscopy History of esophagogastroduodenoscopy (EGD) Hx of hernia repair History of tonsillectomy and adenoidectomy Hx of foot surgery Hx of total hysterectomy Hx of gastric bypass Hx laparoscopic cholecystectomy Social History Smoking Status: Former smoker how long ago did patient quit smoking: quit 2012 alcohol intake: never substance use type: does not use additional social history: denies vaping, denies marijuana use, denies edible, denies aspirin use denies ibuprofen Review of Systems (Anesthesia) ROS Narrative System reviewed and no additional complaints, except as documented. 08/14/24854 <Electronically signed by Gino Carter MD > Date _ Gino Carter MD Cosigner Signature: Date CC: ~ Signed [facility] Work Phone: 1(762) 688-314606-12-2025 Consult note [facility] Medical Records Department [address] [place] [id number] Anesthesia Postop Eval I 08/14/24 1052 MR#: [id number] Acct: [id number] Name: BELLE HAMM Rep #:[id number] : 1970 54 From: Diego Moore PCP: Dr. Berenice Bowling, DO Status: REG [facility] Y Race: C Location: [place] [address] Anesthesia: Postop Eval I Current Vital Signs Temperature: 97.6 F Pulse Rate: 76 Blood Pressure: 111/56 Respiratory Rate: 16 Pulse Ox: 95 Oxygen Delivery Method: Room Air Assessment Airway patent: Yes Spontaneous unlabored respirations: Yes Mental status: Awake and Calm nausea: No Vomiting: No Anesthesia Complication: No Fluid Hydration Crystalloid volume administer (ml): 600 Total IV fluid infused: 600 Progress Note Anesthesia document: Postop Eval 1 completed: Yes 08/14/24 1053 > Date _ Diego Philip Signature: Date CC: ~ Signed [facility]06-12-2025 Procedure note [facility] Medical Records Department [address] [place] [address] EGD Report MR#: [id number] Acct: [id number] Name: BELLE HAMM Rep #:[id number] : 1970 54 From: Moncho Carrillo DO PCP: Dr. Berenice Bowling DO Status: REG [facility] Patient Name: Belle Hamm Procedure Date: 08/14/2024 10:04 AM Date of : 1970 Age: 54 Procedure: Upper GI endoscopy Indications: Epigastric abdominal pain, Functional Dyspepsia, Dysphagia Providers: Moncho Carrillo DO Referring MD: Berenice Bowling Medicines: Monitored Anesthesia Care Patient Profile: This is a 54 year old female. Refer to note in patient chart for documentation of history and physical. Patient has symptoms of dysphagia with both liquids and solids, chronic heartburn and chronic nausea. Complications: No immediate complications. Procedure: Pre-Anesthesia Assessment: - Prior to the procedure, a History and Physical was performed, and patient medications and allergies were reviewed. The patient is competent. The risks and benefits of the procedure and the sedation options and risks were discussed with the patient. All questions were answered and informed consent was obtained. Patient identification and proposed procedure were verified by the physician. Mental Status Examination: alert and oriented. Airway Examination: normal oropharyngeal airway and neck mobility. Respiratory Examination: clear to auscultation. CV Examination: normal. Prophylactic Antibiotics: The patient does not require prophylactic antibiotics. Prior Anticoagulants: The patient has taken no anticoagulant or antiplatelet agents. ASA Grade Assessment: II - A patient with mild systemic disease. After reviewing the risks and benefits, the patient was deemed in satisfactory condition to undergo the procedure. The anesthesia plan was to use monitored anesthesia care (MAC). Immediately prior to administration of medications, the patient was re-assessed for adequacy to receive sedatives. The heart rate, respiratory rate, oxygen saturations, blood pressure, adequacy of pulmonary ventilation, and response to care were monitored throughout the procedure. The physical status of the patient was re-assessed after the procedure. After obtaining informed consent, the endoscope was passed under direct vision. Throughout the procedure, the patient's blood pressure, pulse, and oxygen saturations were monitored continuously. The pediatric colonoscope was introduced through the mouth, and advanced to the anastomosis site of gastric bypass. The upper GI endoscopy was accomplished without difficulty. The patient tolerated the procedure well. Scope In: 10:21:56 AM Scope Out: 10:24:26 AM Total Procedure Duration Time 0 hours 2 minutes 30 seconds Findings: The Z-line was irregular and was found 39 cm from the incisors. Biopsies were taken with a cold forceps for histology. Verification of patient identification for the specimen was done. Estimated blood loss was minimal. 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 The gastrojejunal anastomosis was characterized by friable mucosa and inflammation. This was traversed. The dfxsb-ay-pvatkpb limb was characterized by healthy appearing mucosa. The jejunojejunal anastomosis was characterized by healthy appearing mucosa. The fgurqcok-qf-mxunwzv limb was not examined as it could not be found. The excluded stomach was not examined as it could not be found. Biopsies were taken with a cold forceps for histology. Verification of patient identification for the specimen was done. Estimated blood loss was minimal. The examined jejunum was normal. Impression: - Z-line irregular, 39 cm from the incisors. Biopsied. 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 Biopsied. - Normal examined jejunum. Recommendation: - Discharge patient to home. - Resume previous diet. - Continue present medications. - Await pathology results. Procedure Code(s): --- Professional --- 85644, Esophagogastroduodenoscopy, flexible, transoral; with biopsy, single or multiple CPT copyright 2021 [employer]. All rights reserved. The codes documented in this report are preliminary and upon middle school baseball coach review may be revised to meet current compliance requirements. Moncho Carrillo DO 08/14/2024 10:53:14 AM This report has been signed electronically. Number of Addenda: 0 Note Initiated On: 08/14/2024 10:04 AM 08/14/24 1053 Date _ Moncho Carrillo DO Cosigner Signature: Date (if indicated) CC: Dr. Berenice Bowling DO; Moncho Carrillo DO ~ Date Dictated: 08/14/24 1004 Date Transcribed: Supervisor Cutting And Boning: RF Signed [facility]06-12-2025 Procedure note [facility] Medical Records Department [address] [place] [address] Operative Report - CC Letter MR#: [id number] Acct: [id number] Name: BELLE HAMM Rep #:[id number] : 1970 54 From: Moncho Carrillo DO PCP: Dr. Berenice Bowling DO Status: REG [facility] 08/14/2024 Berenice Bowling Re : Upper GI endoscopy procedure for Belle Hamm Colleen Bowling This procedure was performed on August. My impressions and recommendations are as follows: Impressions : - Z-line irregular, 39 cm from the incisors. Biopsied. 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 Biopsied. - Normal examined jejunum. Recommendations : - Discharge patient to home. - Resume previous diet. - Continue present medications. - Await pathology results. My findings are described in the full procedure note, which is enclosed. If I can be of further assistance, please feel free to contact me at . Sincerely, Moncho Carrillo DO 08/14/2024 10:53:14 AM This report has been signed electronically. 08/14/24 1053 Date _ Moncho Starks Signature: Date (if indicated) CC: Dr. Berenice Bowling DO; Moncho Carrillo DO ~ Date Dictated: 08/14/24 1004 Date Transcribed: Supervisor Cutting And Boning: RF Signed [facility]06-12-2025 Evaluation note* Diagnosis Onset Date Resolution Status Admit Date Personal history of colonic polyps acute August 14, 2024 8:24am Nausea chronic August 14 8:24am [facility] Work Phone: [phone]) 653-926406-12-2025 History and physical note [facility] Medical Records Department [address] [place] [address] History & Physical Exam 08/14/24 1000 MR#: [id number] Acct: [id number] Name: BELLE HAMM Rep #:[id number] : 1970 54 From: Moncho Carrillo DO PCP: Dr. Berenice Bowling DO Status: REG [facility] Location: [place] [address] HPI - General General Date of Admission: 08/14/24 Date of Service: 08/14/24 Chief Complaint: Dysphagia and personal history of polyps HPI Narrative *[facility] established 04.14.21 for screening colonoscopy and intermittent esophageal dysphagia. History of Cristian-en-Y gastric bypass 2019; cholecystectomy 09.11.18 ? EGD and colonoscopy 06.13.21 Irregular Zline; small hiatal hernia;Cristian-en-y gastrojejunostomy with healthy anastomosis. Metaplasia neg. ? Colonoscopy hemorrhoids; diverticulosis. No specimens OV 09.30. still has intermittent dysphagia but finds PPI and gas-X helpful. Start reglan and PPI BID. OV 01.11.23 she has been having nausea followed by dysphagia with intermittent emesis following PO intake. She is not taking protonix or reglan. BM pattern is regular and without difficulty. ? EGD 01.30.23 esophageal stenosis, Savary 60F; irregular Zline; medium hiatal hernia;Cristian-en-Y with healthy anastomosis. No metaplasia ? Upper GISBFT 02.12.23 no acute/chronic abnormality. OV 02.16. feels swallowing, nausea have improved but are still present; epigastric pain continues. Admits to poor diet as she does a lot of traveling. OV 07.24. pt reports that N/V have improved and occur maybe once or twice a month. Pt continues tostruggle with swallowing and feels like food is getting stuck in her throat. EGD 09.20.23 Benign-appearing esophageal stenosis. Dilated. Gastric bypass with a normal-sized pouchand intact staple line. Gastrojejunal anastomosis characterized by healthy appearing mucosa. Normalexamined jejunum. No specimenscollected. EGD 11.16.23 Abnormal esophageal motility, established esophageal spasm. Small hiatal hernia. Cristian-en-Y gastrojejunostomy with gastrojejunal anastomosis characterized by ulceration. Suspected jejunal inflammation characterized by erosions and erythema. Biopsied. GET 02.20.24 rapid emptying OV 1..25 pt reports that she was recently diagnosed with borderline anemia and is seeing a sales contracts analyst through . Pt reports nausea once a week. Pt would like more information regarding dumping syndrome. [facility] Medical History (Updated 08/14/24 @ 10:[address] Ivan Friend, DO) Dysphagia Alcohol use History of hiatal hernia Sleep apnea Wears glasses Anxiety Diabetes Restless legs Dietary restriction Gastric reflux Former smoker CPAP (continuous positive airway pressure) dependence Neuropathy History of echocardiogram History of stress test Hypertension Encounter for screening for malignant neoplasm of colon Home Medications ?Medication ?Instructions ?Recorded ?Last Taken ?Type alprazolam 0.25 mg tablet (Xanax) 0.5 mg PO PRN PRN An xiety 06/08/21 08/13/24 History fluoxetine 40 mg capsule (Prozac) 80 mg PO DAILY 06/0808/13/24 History gabapentin 100 mg tablet 300 mg PO TID 06/08/2108/13 History hydrochlorothiazide 25 mg tablet 25 mg PO DAILY 08/13/24 History metformin 1,000 mg tablet 1,000 mg PO BID 06/08/2101/27 History cetirizine 10 mg tablet 10 mg PO DAILY 01/23/2308/03 History pantoprazole 20 mg tablet,delayed 20 mg PO BID 4 08/13/24 History release ondansetron 4 mg disintegrating 4 mg PO Q8H PRN nausea and 10/11/23 08/12/24 Rx tablet vomiting #90 tabs biotin 2,500 mcg capsule 5 mg PO DAILY 01/04/2408/13 History bisacodyl 5 mg tablet,delayed 20 mg (4 x 5 mg) PO ONCE #4 tabs 03/12/24 08/13/24 Rx release (Dulcolax (bisacodyl)) ferrous sulfate 325 mg (65 mg 325 mg PO QDAY 03/12/24 08/11/24 History iron) tablet mxohgt-uldpaijv-rbailul 3 cap PO QAC #300 caps 03/1208/12/24 Rx 36,000-114,000-180,000 unit capsule,delay rel (Creon) polyethylene glycol 3350 17 238 g PO ONCE #238 grams 0 03/12/24 08/14/24 Rx gram/dose oral powder (Miralax) potassium chloride 10 mEq 10 meq PO BID 03/12/2408/13 History capsule,extended release folic acid 1 mg tablet 1 mg PO DAILY #30 TABLETS 08/13/24 Rx mecobalamin (vitamin B12) 500 mcg 500 mcg PO DAILY #30 tabs 08/06/24 08/13/24 Rx chewable tablet cholecalciferol (vitamin D3) 10 10 mcg PO QDAY #30 cap s 08/08/24 08/13/24 Rx mcg (400 unit) capsule losartan 25 mg tablet 25 mg PO DAILY 08/11/2408/03 History Allergy/AdvReac Type Severity Reaction Status Date / Time codeine (From Allergy Rash Verified 08/14/24 08:55 Tylenol-Codeine) hydrocodone (From Vicodin) Allergy Rash Verified 08/14/24 08:55 Sulfa (Sulfonamide Allergy Rash Verified 08/14/24 08:55 Antibiotics) NSAIDS (Non-Steroidal AdvReac Other Verified 08/14/24 08:55 Anti-Inflamma Family History Brother Diabetes Heart disease Surgical History H/O bilateral breast reduction surgery History of esophagogastroduodenoscopy (EGD) Bariatric surgery status Hx of colonoscopy History of esophagogastroduodenoscopy (EGD) Hx of hernia repair History of tonsillectomy and adenoidectomy Hx of foot surgery Hx of total hysterectomy Hx of gastric bypass Hx laparoscopic cholecystectomy Social History Smoking Status: Former smoker how long ago did patient quit smoking: quit 2012 alcohol intake: never substance use type: does not use additional social history: denies vaping, denies marijuana use, denies edible, denies aspirin use denies ibuprofen ROS Constitutional Constitutional: Denies fatigue, fever(s), poor appetite, weight gain or weight loss Gastrointestinal Gastrointestinal: Denies belching, bloating, change in bowel habits, change in stool character, chewing difficulty, coffee ground emesis, constipation, cramping, diarrhea, dyspepsia, dysphagia, earlysatiety, excessive flatus, fecalincontinence, heartburn, hematemesis, hematochezia, hemorrhoids, loose stools, melena, nausea, odynophagia, rectal bleeding, tenesmus, vomiting or weight changes Vital Signs Vital Signs Vital Signs: 08/14/24 08:58 08/14/24 08:58 Temperature 97.9 F Temperature Source Temporal Pulse Rate 57 L Respiratory Rate 18 Respiratory Pattern Normal Blood Pressure 121/83 H Blood Pressure Mean 95 Blood Pressure Source Monitor Blood Pressure Position Semi-Fowlers Blood Pressure Location Left Forearm Pulse Ox 100 Oxygen Delivery Method Room Air Weight Weight: 218 lb 4.122 oz Body Mass Index (BMI) 39.9 Physical Exam Const alert, oriented x3, no apparent distress and healthy appearing General Appearance: cooperative GI normal to inspection, nondistended, normoactive bowel sounds, soft to palpation,non-tender and non-distended Percussion: normal to percussion Rectal Exam: deferred Results Lab / Micro Data Labs: Laboratory Results - last 24 hr 08/14/24 08:46: POC Glucose 138 H Assessment & Plan Assessment/Plan (1) Nausea: (2) Personal history of colonic polyps: PLAN: Assessment and Plan Assessment and Plan (1) Dysphagia: Status: Chronic Qualifiers: Dysphagia type: esophageal phase Qualified Code(s): R13.19 - Other dysphagia Plan: She will need to undergo an upper endoscopy to evaluate upper GI tract with botox and possible dilation. She was explained alternatives, risk, benefits include not withstanding bleeding, pectin, sepsis, perforation, need for return to . She will have an ASA of 3. (2) History of Cristian-en-Y gastric bypass: Status: Chronic Comment: 2019 (3) Nausea: Status: Chronic Plan: Chronic nausea can be a side effect from gastric bypass due to removal of gastrin. I would like to get a upper GI with follow-through plus or minus gastric emptying study (4) GERD (gastroesophageal reflux disease): Status: Inactive Qualifiers: Esophagitis presence: with esophagitis Esophagitis bleeding: without hemorrhage Qualified Code(s): K21.00 - Gastro-esophageal reflux disease with esophagitis, without bleeding Plan: She is having worsening gastroesophageal reflux disease that I thought was secondary to bile induced gastritis. She underwent an upper endoscopy was discovered to have a patent wire with a normal gastric pouch. There is no ulcerations at the proximal anastomosis with distal anastomosis. Biopsies were taken throughout the small bowel and it did show mild chronic inflammation with some very small inflammation at the site of surgery. I will give her a course of Reglan therapy along with switching her PPI to Protonix therapy (5) Encounter for screening for malignant neoplasm of colon: Status: Inactive Plan: Her colonoscopy did not reveal any adenomatous polyp. She did have diverticulardisease. She will need a repeat colonoscopy in 5 years. 08/14/24 1006 Cosigner Signature (if applicable): CC: Dr. Berenice Bowling, DO; Moncho Friend, DO~ Signed [facility]06-12-2025 [facility] Medical Records Department [address] [place] [address] History Physical Exam 08/14/24 1000 MR#: [id number] Acct: [id number] Name: BELLE HAMM Rep #: [id number] : 1970 54 From: Moncho Friend DO PCP: Dr. Berenice Bowling, DO Status:REG SDC Location: [place] [address] HPI - General General Date of Admission: 08/14/24 Date of Service: 08/14/24 Chief Complaint: Dysphagia and personal history of polyps HPI Narrative *I established 04.14.21 for screening colonoscopy and intermittent esophageal dysphagia. History of Cristian-en-Y gastric bypass 2018; cholecystectomy 09.11.18 ? EGD and colonoscopy 06.13.21 Irregular Zline; small hiatal hernia; Cristian-en-y gastrojejunostomy with healthy anastomosis. Metaplasia neg. ? Colonoscopy hemorrhoids; diverticulosis. No specimens OV 09.30.21 still has intermittent dysphagia but finds PPI and gas-X helpful. Start reglan and PPI BID. OV 01.11.23 she has been having nausea followed by dysphagia with intermittent emesis following PO intake. She is not taking protonix or reglan. BM pattern is regular and without difficulty. ? EGD 01.30.23 esophageal stenosis, Savary 60F; irregular Zline; medium hiatal hernia; Cristian-en-Y with healthy anastomosis. No metaplasia ? Upper GISBFT 02.12.23 no acute/chronic abnormality. OV 12.15. feels swallowing, nausea have improved but are still present; epigastric pain continues. Admits to poor diet as she does a lot of traveling. OV 5..24 pt reports that N/V have improved and occur maybe once or twice a month. Pt continues to struggle with swallowing and feels like food is getting stuck in her throat. EGD 09.20.23 Benign-appearing esophageal stenosis. Dilated. Gastric bypass with a normal-sized pouch and intact staple line. Gastrojejunal anastomosis characterized by healthy appearing mucosa. Normal examined jejunum. No specimens collected. EGD 11.16.23 Abnormal esophageal motility, established esophageal spasm. Small hiatal hernia. Cristian-en-Y gastrojejunostomy with gastrojejunal anastomosis characterized by ulceration. Suspected jejunal inflammation characterized by erosions and erythema. Biopsied. GET 02.20.24 rapid emptying OV 1.. pt reports that she was recently diagnosed with borderline anemia and is seeing a sales contracts analyst through . Pt reports nausea once a week. Pt would like more information regarding dumping syndrome. [facility] Medical History (Updated 08/14/24 @ 10:[address] Ivan Friend, DO) Dysphagia Alcohol use History of hiatal hernia Sleep apnea Wears glasses Anxiety Diabetes Restless legs Dietary restriction Gastric reflux Former smoker CPAP (continuous positive airway pressure) dependence Neuropathy History of echocardiogram History of stress test Hypertension Encounter for screening for malignant neoplasm of colon Home Medications ???Medication ???Instructions ???Recorded ???Last Taken ???Type alprazolam 0.25 mg tablet (Xanax) 0.5 mg PO PRN PRN Anxiety 2 08/13/24 History fluoxetine 40 mg capsule (Prozac) 80 mg PO DAILY 06/08/21 08/13/24 History gabapentin 100 mg tablet 300 mg PO TID 06/08/21 08/13/24 Hi story hydrochlorothiazide 25 mg tablet 25 mg PO DAILY 06/08/21 08/13/24 H istory metformin 1,000 mg tablet 1,000 mg PO BID 06/08/21 08/13/24 History cetirizine 10 mg tablet 10 mg PO DAILY 01/23/23 08/13/24 H istory pantoprazole 20 mg tablet,delayed 20 mg PO BID 07/26/23 08/13/24 Hi story release ondansetron 4 mg disintegrating 4 mg PO Q8H PRN nausea and 4 08/12/24 Rx tablet vomiting #90 tabs biotin 2,500 mcg capsule 5 mg PO DAILY 01/04/24 08/13/24 Hi story bisacodyl 5 mg tablet,delayed 20 mg (4 x 5 mg) PO ONCE #4 tabs 0 03/12/24 08/13/24 Rx release (Dulcolax (bisacodyl)) ferrous sulfate 325 mg (65 mg 325 mg PO QDAY 03/12/24 08/11/24 H istory iron) tablet [id number]-xcbqqoue-jhekbfk 3 cap PO QAC #300 caps 03/12/24 Rx 36,000-114,000-180,000 unit capsule,delay rel (Creon) polyethylene glycol 3350 17 238 g PO ONCE #238 grams 03/12/24 08/14/24 Rx gram/dose oral powder (Miralax) potassium chloride 10 mEq 10 meq PO BID 03/12/24 08/13/24 Hi story capsule,extended release folic acid 1 mg tablet 1 mg PO DAILY #30 TABLETS 07/03/24 08/13/24 Rx mecobalamin (vitamin B12) 500 mcg 500 mcg PO DAILY #30 tabs 5 08/13/24 Rx chewable tablet cholecalciferol (vitamin D3) 10 10 mcg PO QDAY #30 caps 08/08/24 0 08/13/24 Rx mcg (400 unit) capsule losartan 25 mg tablet 25 mg PO DAILY 08/11/24 08/13/24 H istory Allergy/AdvReac Type Severity Reaction Status Date / Time codeine (From (more content not included)...[facility]06-12-2025 Consult note [facility] Medical Records Department [address] [place] [address] Pre-Anesthesia Evaluation 08/14/24 0855 MR#: [id number] Acct: [id number] Name: BELLE HAMM Rep #:[id number] : 1970 54 From: Gino Carter MD PCP: Dr. Berenice Bowling, DO Status: REG SDC Y Race: C Location: AC AC14-1 ASA Classification* ASA Classification ASA Classification: 2 Assessment & Plan Anesthesia* Anesthesia Assessment Anesthesia Assessment: Discussed sedation and/or anesthesia options, risks, benefits, and alternatives with patient/parents/legal guardian/POA. Questions invited. The patient/parents/legal guardian/POA seems to understand and agrees to proceedwith anesthesia plan. Reviewed the physical assessment, medical history, allergy history and patient home medications list prior to surgery/procedure/anesthetic and documented any changes. Performed airway and anesthesia risk assessments. Anesthesia Type Anesthesia Type: MAC Anesthesia Focused Assessment* Airway Assessment Mouth opens: >3 cm Mallampati Score: II Labs Anesthesia Preop lab: CBC WBC 6.0 K/mm3 (4.4-11.0) 12/19/23 10:40 12/19/23 RBC 4.11 M/mm3 (4.2-5.4) L 12/19/23 10:40 12/19/23 Hgb 12.0 g/dL (12.0-15.0) 12/19/23 10:40 12/19/23 Hct 37.8 % (37-47) 12/19/23 10:40 12/19/23 Plt Count 256 K/mm3 (150-450) 12/19/23 10:40 12/19/23 CHEMISTRY Potassium 3.6 mmol/L (3.5-5.1) 12/19/23 10:40 12/19/23 Sodium 137 mmol/L (136-145) 12/19/23 10:40 12/19/23 BUN 11 mg/dL (7-18) 12/19/23 10:40 12/19/23 Creatinine 0.94 mg/dL (0.55-1.02) 12/19/23 10:40 12/19/23 Glucose 110 mg/dL (74-106) H 12/19/23 10:40 12/19/23 POC Glucose 116 mg/dL (74-106) H 01/18/24 06:13 01/18/24 COAG Pre-Assessment Diagnosis/Proposed Procedure Planned Operative Procedure(s): COLONOSCOPY, EGD Anesthesia History 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 When Was Last Pacemaker Check QUESTION #4 FULL TEXT: You/Your Family Experience fever (hyperthermia) with Anesthesia Last Oral Intake Last Oral intake: Last Oral Intake NPO since Meds taken in AM with sips of water? Meds patient instructed to take am of surgery PONV PONV - small business consultant: PONV - small business consultant Female Yes 08/11/24 15:22 HX of Motion Sickness No 08/11/24 15:22 HX of N/V After Surgery No 08/11/24 15:22 Non-Smoker Yes 08/11/24 15:22 Duration of Surgery greater No 08/11/24 15:22 than 60 minutes Number of Risk Factors 2 08/11/24 15:22 PONV Score Moderate Risk 08/11/24 15:22 Height & Weight Height & Weight: Anesthesia: Height & Weight Height 5 ft 2 in 04/02/24 09:05 Respiratory Assessment Respiratory Assessment - small business consultant: Respiratory Tract Infection Hx - small business consultant Hx Respiratory Tract Infection No 08/11/24 15:22 STOP Sleep Apnea STOP Sleep Apnea - small business consultant: STOP Sleep Apnea - small business consultant Hx Hypertension Yes: CONTROLLED WITH MEDS 08/11/24 15:22 Hx Sleep Apnea Yes 08/11/24 15:22 CPAP Yes 08/11/24 15:22 BIPAP No 08/11/24 15:22 Do you snore loudly (louder than talking or can be heard Do you often feel tired/ fatigued/ sleepy during daytime? Has anyone observed you stop breathing during sleep? STOP Results Positive 08/11/24 15:22 QUESTION #5 FULL TEXT : Do you snore loudly (louder than talking or can be heard through closeddoors)? 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 Specify any problems Hx of Preganancy in last 3 No 08/11/24 15:22 Months Nurse Filling Out Transfusion [email or web address] 08/11/24 15:22 & Questions: Date: 08/11/24 08/11/24 15:22 Time: 15:08/11/24 15:22 Patient unable to answer at this time (ie. confused, unrespo /Reproduction History /Reproductive History - small business consultant: /Reproductive Hx- small business consultant Hx Now No 08/11/24 15:22 Gestational Age (in weeks): EDC: Hx Hx Para Hx Section SAB No 08/11/24 15:22 Active Medications Active Medications: Current Medications Generic Name Dose Route Start Last Admin Trade Name Freq PRN Reason Stop Dose Admin Lactated Ringer's 1,000 mls @ 15 mls/hr 08/14/24 08:30 IV .Q48H BERNADETTE PFSH Medical History Alcohol use History of hiatal hernia Sleep apnea Wears glasses Anxiety Diabetes Restless legs Dietary restriction Gastric reflux Former smoker CPAP (continuous positive airway pressure) dependence Neuropathy History of echocardiogram History of stress test Hypertension Encounter for screening for malignant neoplasm of colon Home Medications ?Medication ?Instructions ?Recorded ?Last Taken ?Type alprazolam 0.25 mg tablet (Xanax) 0.5 mg PO PRN PRN An xiety 06/08/21 11/16/23 History fluoxetine 40 mg capsule (Prozac) 80 mg PO DAILY 06/0809/19/23 08:00 History gabapentin 100 mg tablet 300 mg PO TID 06/08/2111/15 History hydrochlorothiazide 25 mg tablet 25 mg PO DAILY 09/19/23 08:00 History metformin 1,000 mg tablet 1,000 mg PO BID 06/08/21 20:00 History cetirizine 10 mg tablet 10 mg PO DAILY 01/23/2309/02 History pantoprazole 20 mg tablet,delayed 20 mg PO BID 4 09/19/23 22:00 History release ondansetron 4 mg disintegrating 4 mg PO Q8H PRN nausea and 10/11/23 Unknown Rx tablet vomiting #90 tabs biotin 2,500 mcg capsule 5 mg PO DAILY 01/04/24 Unkno wn History bisacodyl 5 mg tablet,delayed 20 mg (4 x 5 mg) PO ONCE #4 tabs 03/12/24 Unknown Rx release (Dulcolax (bisacodyl)) ferrous sulfate 325 mg (65 mg 325 mg PO QDAY 03/12/24 08/11/24 History iron) tablet qmhnsz-htfnrmdr-owvwrix 3 cap PO QAC #300 caps 03/12 Unknown Rx 36,000-114,000-180,000 unit capsule,delay rel (Creon) polyethylene glycol 3350 17 238 g PO ONCE #238 grams 0 03/12/24 Unknown Rx gram/dose oral powder (Miralax) potassium chloride 10 mEq 10 meq PO BID 03/12/24 Unkno wn History capsule,extended release folic acid 1 mg tablet 1 mg PO DAILY #30 TABLETS Unknown Rx mecobalamin (vitamin B12) 500 mcg 500 mcg PO DAILY #30 tabs 08/06/24 Unknown Rx chewable tablet cholecalciferol (vitamin D3) 10 10 mcg PO QDAY #30 cap s 08/08/24 Unknown Rx mcg (400 unit) capsule losartan 25 mg tablet 25 mg PO DAILY 08/11/24 Unkn own History Allergy/AdvReac Type Severity Reaction Status Date / Time codeine (From Allergy Rash Verified 08/14/24 08:55 Tylenol-Codeine) hydrocodone (From Vicodin) Allergy Rash Verified 08/14/24 08:55 Sulfa (Sulfonamide Allergy Rash Verified 08/14/24 08:55 Antibiotics) NSAIDS (Non-Steroidal AdvReac Other Verified 08/14/24 08:55 Anti-Inflamma Family History Brother Diabetes Heart disease Surgical History H/O bilateral breast reduction surgery History of esophagogastroduodenoscopy (EGD) Bariatric surgery status Hx of colonoscopy History of esophagogastroduodenoscopy (EGD) Hx of hernia repair History of tonsillectomy and adenoidectomy Hx of foot surgery Hx of total hysterectomy Hx of gastric bypass Hx laparoscopic cholecystectomy Social History Smoking Status: Former smoker how long ago did patient quit smoking: quit 2012 alcohol intake: never substance use type: does not use additional social history: denies vaping, denies marijuana use, denies edible, denies aspirin use denies ibuprofen Review of Systems (Anesthesia) ROS Narrative System reviewed and no additional complaints, except as documented. 08/14/24 0855 > Date _ Gino Carter MD Cosign Signature: Date CC: ~ Signed [facility]06-08-2025 Consult note Author Diego Moore [facility] Note Date/Time August 14, 2024 10:5 3am [facility] Medical Records Department [address] [place] [address] Anesthesia Postop Eval I 08/14/24 1052 MR#: [id number] Acct: [id number] Name: BELLE HAMM Rep #:[id number] : 1970 54 From: Diego Moore PCP: Dr. Berenice Bowling, DO Status: REG SDC Y Race: C Location: [place] [address] Anesthesia: Postop Eval I Current Vital Signs Temperature: 97.6 F Pulse Rate: 76 Blood Pressure: 111/56 Respiratory Rate: 16 Pulse Ox: 95 Oxygen Delivery Method: Room Air Assessment Airway patent: Yes Spontaneous unlabored respirations: Yes Mental status: Awake and Calm nausea: No Vomiting: No Anesthesia Complication: No Fluid Hydration Crystalloid volume administer (ml): 600 Total IV fluid infused: 600 Progress Note Anesthesia document: Postop Eval 1 completed: Yes 08/14/24 1053 <Electronically signed by Diego Moore > Date _ Diego Moore Cosigner Signature: Date CC: ~ Signed [facility] Work Phone: [phone]) 913-314705-29-2025 Hospital Discharge instructions Patient Education 07/31/2024 12:03:44 Lower Extremity Contusion Lower Extremity Contusion You have a contusion (bruise) of a lower extremity (leg, knee, ankle, foot, or toe). Symptoms include pain, swelling, and skin discoloration. No bones are broken. This injury may take from a few daysto a few weeks to heal. During that time, the bruise may change from reddish in color, to purple-blue, to green- yellow, to yellow-brown. Home care Unless another medicine was prescribed, you can take acetaminophen, ibuprofen, or naproxen to control pain. (If you have chronic liver or kidney disease or ever had a stomach ulcer or gastrointestinal bleeding, talk with your doctor before using these medicines.) Elevate the injured area to reduce pain and swelling. As much as possible, sit or lie down with theinjured area raised about the level of your heart. This is especially important during the first 48hours. Ice the injured area to help reduce pain and swelling. Wrap a cold source (ice pack or ice cubes travis plastic bag) in a thin towel. Apply to the bruised area for 20 minutes every 1 to 2 hours the first day. Continue this 3 to 4 times a day until the pain and swelling goes away. If crutches have been advised, do not bear full weight on the injured leg until you can do so without pain. You may return to sports when you are able to put full weight and impact on the injured legwithout pain. Follow up Follow up with your healthcare provider or our staff as advised. Call if you are not improving within the next 1 to 2 weeks. When to seek medical advice Call your healthcare provider right away if any of these occur: Increased pain or swelling Foot or toes become cold, blue, numb or tingly Signs of infection: Warmth, drainage, or increased redness or pain around the injury Inability to move the injured area , or any joints below the injured area. Frequent bruising for unknown reasons [id number] [employer]. [address] [place] [id number]. All rights reserved. This information is not intended as a substitute for professional medical care. Always follow yourhealthcare professional's instructions. Follow Up Care 07/31/2024 11:07:11 With:BERENICE BOWLING DO Address: [address] [place] [phone]- [phone] When:2-4 days [facility] 05-29-2025 Note Discharge Instructions Thank you for allowing [facility] to assist you with your healthcare needs. The following is importantdischarge information regarding your hospital visit. Diagnosis from Today's Visit Fall Knee contusion What to Do Next Instructions from Your Care Team No qualifying data available. Post Acute Orders No qualifying data available. You Need to Schedule the Following Appointments Follow Up with BERENICE BOWLING DO When:Within 2-4 days Where:[address] [place] [phone] Allergies NSAIDS due to bypass surgery Vicodin Rash codeine Rash sulfa drugs Rash traMADol Unknown Medications Please ask your primary doctor or pharmacist before taking any other medication not listed, including over the counter drugs, herbal medications, vitamins and or supplements as they may interact withyour home medications. What How Much When Why Instructions Last Dose Unchanged acetaminophen (acetaminophen 500 mg oral tablet) 2 tab(s) by mouth Three (3) times a day as needed for pain or fever Unchanged ALPRAZolam (ALPRAZolam 0.5 mg oral tablet) 1 tab(s) by mouth Two (2) times a day ISABELLA (generalized anxiety disorder) Duration: 30 Days Unchanged cetirizine (cetirizine 10 mg oral tablet) 1 tab(s) by mouth Once a day Unchanged cholecalciferol (Vitamin D3 10 mcg (400 intl units) oral tablet) 1 tab(s) by mouth Every day Unchanged cyanocobalamin (Vitamin B-12 500 mcg oral tablet) 1 tab(s) by mouth Once a day Unchanged diclofenac topical (Voltaren 1% topical gel) 2 gram(s) Topical Four (4) times a day Unchanged ferrous sulfate (ferrous sulfate 325 mg (65 mg elemental iron) oral delayed release tablet) 1 tab(s) by mouth Once a day Unchanged FLUoxetine (FLUoxetine 40 mg oral capsule) 2 cap by mouth Once a day Unchanged fluticasone nasal (Flonase 50 mcg/ inh nasal spray) 2 spray(s) each nostril Once a day (in the morning) Unchanged folic acid (folic acid 1 mg oral tablet) 1 tab(s) by mouth Once a day Unchanged gabapentin (gabapentin 300 mg oral capsule) 1 cap by mouth Three (3) times a day Peripheral neuropathy Duration: 90 Days Unchanged hydroCHLOROthiazide (hydroCHLOROthiazide 25 mg oral tablet) 1 tab(s) by mouth Once a day Unchanged losartan (losartan 25 mg oral tablet) 1 tab(s) by mouth Once a day Unchanged metFORMIN (MetFORMIN (Eqv-Glucophage XR) 500 mg oral tablet, EXTENDED RELEASE) 2 tab(s) by mouth Two (2) times a day Unchanged nystatin topical (nystatin 100,000 units/ g topical powder) 1 application Topical Two (2) times a day Unchanged ondansetron (Zofran 4 mg oral tablet) 1 tab(s) by mouth Every 8 hours as needed for Nausea/Vomiting Unchanged pancrelipase (Creon 36,000 units oral delayed release capsule) Unchanged pantoprazole (pantoprazole 40 mg oral enteric coated tablet) 1 tab(s) by mouth Two (2) times a day Unchanged potassium chloride (potassium chloride 10 mEq oral tablet, extended release) 1 tab(s) by mouth Two (2) times a day Take with food. Please take this list to your next doctor s visit. Bring all medications you take, including over the counter medications, herbals and other supplements with you to your doctor s visit. Patients and families are reminded to discard old lists and to update any records with all medication providers or retail pharmacies. Education Materials Lower Extremity Contusion You have a contusion (bruise) of a lower extremity (leg, knee, ankle, foot, or toe). Symptoms include pain, swelling, and skin discoloration. No bones are broken. This injury may take from a few daysto a few weeks to heal. During that time, the bruise may change from reddish in color, to purple-blue, to green- yellow, to yellow-brown. Home care Unless another medicine was prescribed, you can take acetaminophen, ibuprofen, or naproxen to control pain. (If you have chronic liver or kidney disease or ever had a stomach ulcer or gastrointestinal bleeding, talk with your doctor before using these medicines.) Elevate the injured area to reduce pain and swelling. As much as possible, sit or lie down with theinjured area raised about the level of your heart. This is especially important during the first 48hours. Ice the injured area to help reduce pain and swelling. Wrap a cold source (ice pack or ice cubes travis plastic bag) in a thin towel. Apply to the bruised area for 20 minutes every 1 to 2 hours the first day. Continue this 3 to 4 times a day until the pain and swelling goes away. If crutches have been advised, do not bear full weight on the injured leg until you can do so without pain. You may return to sports when you are able to put full weight and impact on the injured legwithout pain. Follow up Follow up with your healthcare provider or our staff as advised. Call if you are not improving within the next 1 to 2 weeks. When to seek medical advice Call your healthcare provider right away if any of these occur: Increased pain or swelling Foot or toes become cold, blue, numb or tingly Signs of infection: Warmth, drainage, or increased redness or pain around the injury Inability to move the injured area , or any joints below the injured area. Frequent bruising for unknown reasons [id number] [employer]. [address] [place] [address], [place] [address]. All rights reserved. This information is not intended as a substitute for professional medical care. Always follow yourhealthcare professional's instructions. Additional Information VACCINATE! IT SAVES LIVES! Members of the community who have not yet received the COVID-19 vaccine and would like to receive it can visit one of [facility] vaccine clinics. There are many vaccine clinic locations within the [facility]. For locations and available times, please visit [email or web address] It is important to note that some COVID mobile vaccine clinics are held outdoors and may be canceled in rainy or stormy conditions. To learn more about pediatric vaccinations (ages 5-11), we invite you to visit the [facility] webpage. [email or web address]/[email or web address] [email or web address] learn more about the COVID-19 vaccine, we invite you to visit the CDC website for a list of frequently asked questions. https://www.cdc.gov/coronavirus/2019-ncov/vaccines/faq.html [facility] Patient [facility] Access Instructions: Stay connected with your healthcare team and access your personal medical information anytime with the [facility] Patient Portal. If you would like a full copy of your medical records please contact the [facility] Medical Records Department Sunday through Sunday between 8a.m. and 4:30p.m. Please follow the directions below to access the portal: 1.Access the email account you provided upon registration to the hospital.2.Look for an invitation email from [facility].3.Open the email and access the invitation link: Accept Invitation to [facility]4.Fill in the required wilkinson to create your account. Sign into [email or web address] with your username and password that you created in the above steps to stay up to date. You can then view a summary of results, a summary of your visits, and the ability to download your summaries to your computer or send the information securely to a physician. Remember that your healthcare information is confidential, so carefully consider who you will allow to register on the [facility] Patient Portal for access to your information. You can also access the [facility] Patient Portal on the [employer]. Simply click on Health Records under [employer] and then click on the [facility] logo. HOW TO SAFELY DISPOSE OF PRESCRIPTION MEDICATIONS Please use one of the following methods to safely dispose of your unused medications. 1.Use a drug disposal kit: the drug disposal pouch allows you to safely discard your old and unuseddrugs. Ask your nurse to give you one when you are discharged.2.Visit a local take-back location: Many local pharmacies and police departments have programs that collect old and unwanted prescriptiondrugs. Call your local pharmacy or go to http://AkesoGenX.Profista/8E3Xb8m to find one close to you.3.Make use of household items: Use cat litter or old coffee grounds to dispose medications if other options arenot available. Mix your drugs with these household products, seal them in an airtight container andthrow it into the garbage. Call [facility]: [phone] to be sure your drugs can be disposed of in this way. Some medicines may require a different approach.4.Never flush your medications down the toilet. IF YOU HAVE BEEN PRESCRIBED AN OPIOIDS FOR PAIN If you have been prescribed an opioid (such as hydrocodone, oxycodone or morphine), it is critical to understand the possible side effects and risks of opioid pain medications. Even when taken as directed, opioids can have several side effects including: Tolerance, meaning you might need to take more of a medication for the same pain relief. Nausea, vomiting and/or constipation. Sleepiness, dizziness, dry mouth, confusion, depression or itching. Physical dependence, meaning you have withdrawal symptoms when a medication is stopped ? this can develop within a few days. KNOW YOUR RESPONSIBILITIES It is important to know exactly how much and how often to take the opioid pain medications you are prescribed. Never take opioids in higher amounts or more often than prescribed. Do not combine opioids with alcohol or other drugs that cause drowsiness, such as benzodiazepines, also known as benzos,including diazepam and alprazolam, muscle relaxants or sleep aids. Never sell or share prescriptionopioids. This is illegal. Store opioids in a secure place and out of reach of others (including children, family, friends and visitors). The last page(s) of this document has been signed and retained as a CHART COPY Signatures Patient Education Materials Lower Extremity Contusion Medication Leaflets My discharge plan and instructions have been reviewed and explained to me and ICATHERINE AMY M understand my current condition and have read and understand these discharge instructions. I have received a written copy of the plan/instructions. If I have questions, I am aware that I should contact my doctor. 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 No joint effusion is seen. Mild spurring seen in the medial tibiofemoral compartment. There are no suspicious osseous lesions. There is no radiopaque foreign body. IMPRESSION: No acute fracture or subluxation. Mild degenerative changes. I have personally reviewed the images of this examination and agree with the resident's findings and interpretation. Interpreted by: Thaddeus Chavez MD Preliminary Report By: Song Thompson MD Electronically signed By Thaddeus Chavez MD Dictated Date: 07/31/2024 11:41:47 AM Prelim Date: 07/31/2024 11:47:59 AM Sign Date: 07/31/2024 11:47:59 AM Ordering Provider: JOSE A BERNAL [facility]05-29-2025 Note* Exam Date Time Procedure Performing Provider Status 07/31/24 11:31 AM XR Ankle Minimum 3 V iews Left THADDEUS CHAVEZ MD; Auth (Verified) [id number] ORIGINAL EXAMINATION: THREE XRAY VIEWS OF THE LEFT ANKLE07/31/2024 11:32 am ANKLE 3 VIEWS LEFT COMPARISON: Left foot x-ray 04/11/2016 HISTORY: ORDERING SYSTEM PROVIDED HISTORY: Reason for Exam: fall FINDINGS: No acute fracture or dislocation is identified. The ankle mortise and talar dome are normal. The joint spaces are maintained. There is no radiopaque foreign body. Surgical fixation of the 1st, 2nd, and 3rd digits is noted. Some lucency is seen around the proximal portion of the 1st digit screw. IMPRESSION: No acute fracture or dislocation. Lucency surrounding the proximal portion of the 1st digit screw. This may be related to hardware loosening. Consider dedicated foot radiographs I have personally reviewed the images of this examination and agree with the resident's findings and interpretation. Interpreted by: Thaddeus Chavez MD Preliminary Report By: Marine Keith Electronically signed By Thaddeus Chavez MD Dictated Date: 07/31/2024 11:38:04 AM Prelim Date: 07/31/2024 11:46:56 AM Sign Date: 07/31/2024 11:46:56 AM Ordering Provider: [facility]05-01-2025 Note* Exam Date Time Procedure Performing Provider Status 07/03/24 9:[address] Sinus w/o Contrast OSMIN LEBRON MD; Auth (Verified) [id number] ORIGINAL EXAMINATION: CT OF THE SINUS WITHOUT CONTRAST 07/03/2024 9:37 am TECHNIQUE: CT of the sinuses was performed without the administration of intravenous contrast. Multiplanar reformatted images are provided for review. Automated exposure control, iterative reconstruction, and/or weight based adjustment of the mA/kV was utilized to reduce the radiation dose to as low as reasonably achievable. COMPARISON: None HISTORY: ORDERING SYSTEM PROVIDED HISTORY: Reason for Exam: OTHER CHRONIC SINUSITIS FINDINGS: SINUSES/MASTOIDS: The maxillary, sphenoid, ethmoid and frontal sinuses are clear. The bilateral ostiomeatal units are patent. Ethmoid roofs are symmetric. The mastoid air cells are well aerated. SOFT TISSUES: Visualized soft tissues demonstrate no acute abnormality. The visualized portion of the intracranial contents demonstrate no gross acute abnormality. IMPRESSION: No evidence of sinusitis. Interpreted by: Osmin Lebron Preliminary Report By: Osmin Lebron Electronically signed By Osmin Lebron Dictated Date: 07/03/2024 9:56:38 AM Prelim Date: 07/03/2024 9:57:13 AM Sign Date: 07/03/2024 9:57:13 AM Ordering Provider: CLARA GREENWOOD [facility]03-27-2025 Note. MICRO - Microbiology PROCEDURE: Urine Culture [*1] SOURCE: Urine, Clean Catch BODY SITE: COLLECTED DATE/TIME: 05/28/2024 09:37 EDT RECEIVED DATE/TIME: 05/28/2024 17:00 EDT START DATE/TIME: 05/28/2024 17:00 EDT FREE TEXT SOURCE: FINAL REPORTS Final Report [] Verified Date/Time/Personnel: 05/29/2024 14:19 EDT <10,000 cfu/ml. No Significant growth. Sensitivity not indicated. PRELIMINARY REPORTS Preliminary Report [] Verified Date/Time/Personnel: 05/28/2024 17:59 EDT Specimen received in lab. Performing Locations *1: This test was performed at: [address], [address] [place], [place] [address]3-15-2025 Note. MICRO - Microbiology PROCEDURE: Urine Culture [*1] SOURCE: Urine, Clean Catch BODY SITE: COLLECTED DATE/TIME: 05/15/2024 09:20 EDT RECEIVED DATE/TIME: 05/15/2024 15:39 EDT START DATE/TIME: 05/15/2024 15:39 EDT FREE TEXT SOURCE: FINAL REPORTS Final Report [] Verified Date/Time/Personnel: 05/17/2024 11:00 EDT 50,000 - 100,000 cfu/ml Lactobacillus gasseri Sensitivity testing is not recommended for one of the following reasons: 1. Established susceptibility patterns are available or 2. Interpretative criteria are not available. PRELIMINARY REPORTS Preliminary Report [] Verified Date/Time/Personnel: 05/16/2024 10:06 EDT No growth to date Preliminary Report [] Verified Date/Time/Personnel: 05/15/2024 16:59 EDT Specimen received in lab. SUSCEPTIBILITY RESULTS Lactobacillus gasseri Antibiotic GARRETT Dilut GARRETT Inter ID Panel Not Not Applicable Applicable Performing Locations *1: This test was performed at: [address], [facility]- , [facility]02-18-2025 Telephone encounter Note* Telephone Encounter - Ammon Frye RN - 04/22/2024 1:29 PM EST Images from the original note were not included. Call to patient and given message above. She denies any questions. Dayana Frye RN [facility] Work Phone: 1(228) 480-934202-18-2025 Miscellaneous Notes* Telephone Encounter - Ammon rFye RN - 04/22/2024 1:29 PM EST Images from the original note were not included. Call to patient and given message above. She denies any questions. Dayana Frye RN [facility] Telephone encounter Note * Telephone Encounter - Ammon Frye RN - 04/04/2024 2:28 PM EST Per janet Mcpherson WNL. No follow up needed. Dayana Frye RN Call to patient and aware. She will call back if she has any further questions/needs. Dayana Frye RN [facility] Work Phone: 1(106) 564-427201-31-2025 Miscellaneous Notes* Telephone Encounter - Ammon Frye RN - 04/04/2024 2:28 PM EST Per janet Mcpherson WNL. No follow up needed. Dayana Frye RN Call to patient and aware. She will call back if she has any further questions/needs. Dayana Frye RN * Telephone Encounter - Pauline Jeong LPN - 04/01/2024 3:21 PM EST F/U TBD after platelet aggregation test? Pauline Jeong LPN * Telephone Encounter - Lucrecia Moran - 04/01/2024 2:44 PM EST Please advise if follow ups are to be scheduled from 04/01 visit. [facility] Telephone encounter Note * Telephone Encounter - Pauline Jeong LPN - 04/01/2024 3:21 PM EST F/U TBD after platelet aggregation test? Pauline Jeong LPN [facility]01-28-2025 Telephone encounter Note* Telephone Encounter - Lucrecia Moran - 04/01/2024 2:44 PM EST Please advise if follow ups are to be scheduled from 04/01 visit. [facility] Work Phone: 1(299) 448-782001-28-2025 NoteHNO ID: [id number] Author: JUANJOSE KING MD Service: ? Author Type: Physician Type: Progress Notes Filed: 04/01/2024 08:56 Note Text: (Elements copied from my note dated March 11, 2024, have been reviewed and updated where appropriate, and all reflect current assessment and medical decision making from today's encounter, April 01, 2024) HISTORY OF PRESENT ILLNESS: Belle Smith is a 53 year old female since summer 2023, noted some petechiae like rash on arms has only on arms, does note some bruises , bruises on legs, last about a week or so. Buspirone started November 2023 Protonix started Breast reduction January 2024, had excessive bruising after surgery, but surgeon noted good hemostasis intraoperatively. Had a hysterectomy, did have heavy periods but was attributed to periods No bleeding tendency prior to summer 2023. Colonoscopy up to date. Here for follow up, buspirone has been stopped as of 3 weeks ago. She has noted improvement in the arm bruises CLINICAL IMPRESSION: Looks like solar purpura, possibly exacerbated by buspirone anemia RECOMMENDATION/PLAN: 1. Will check platelet aggregation studies. Written and verbal health teaching given to patient, patient verbalizes understanding and agrees with treatment plan. PAST MEDICAL HISTORY Diagnosis Date Anxiety Back pain, lumbosacral DJD Cervical back pain with evidence of disc disease 2 BULGING DISC Diabetic acidosis, type II (HCC) GERD (gastroesophageal reflux disease) Hidradenitis suppurativa Hypertension Hyponatremia Incarcerated hernia Kidney stones Sleep apnea Vitamin D deficiency PAST SURGICAL HISTORY Procedure Laterality Date COLONOSCOPY W/BIOPSY SINGLE/MULTIPLE 09/04/2012 EGD TRANSORAL BIOPSY SINGLE/MULTIPLE 09/04/2012 FOOT SURGERY HX Bilateral Hammer toe FOOT/TOES SURGERY PROC UNLISTED 03/05/2001 CARTILAGE REMOVED LEFT FOOT GASTRIC BYPASS HX HYSTERECTOMY HX LAPAROSCOPY SURG CHOLECYSTECTOMY 02/06/2012 NEPHROLITHOTOMY REMOVAL STAGE 1 07/13 AND 01/06 REDUCTION OF LARGE BREAST Bilateral REPAIR FIRST ABDOMINAL WALL HERNIA 02/06/2012 FAMILY HISTORY Problem Relation Age of Onset Diabetes Mother Hypertension Mother other (CHROHN [Other]) Mother other (CHF [Other]) Mother other (CHF [Other]) Father Diabetes Brother Coronary Artery Disease Brother TRIPLE BYPASS Social History Tobacco Use Smoking status: Former Types: Cigarettes Smokeless tobacco: Never Tobacco comments: Pt smoked one pack daily on AND off x 20 years, quit 2012 Vaping Use Vaping status: Never Used Substance Use Topics Alcohol use: Yes Comment: SOCIALLY Drug use: No ALLERGIES: ALLERGIES Allergen Reactions Codeine Rash Hydrocodone Rash Ibuprofen Other: See Comments Pt to avoid taking anything that contains ibuprofen due to history of gastric bypass surgery Naproxen Other: See Comments Sulfa (Sulfonamide * Rash Tramadol Unknown threw me for a loop Vicodin [Hydrocodon* Rash CURRENT OUTPATIENT MEDICATIONS: folic acid 1 mg tablet Take 1 mg by mouth once daily. cholecalciferol (VITAMIN D-3) 400 unit tab Take 400 Units by mouth once daily. cyanocobalamin (VITAMIN B-12) 500 mcg tablet Take 1 tablet by mouth once daily. cuxnwa-gyltjtuc-mgaevze (CREON) 36,000-114,000- 180,000 unit delayed release capsule Take 3 capsules by mouth three times a day with meals. 3 capsules with meals 2 capsules with snacks gabapentin (NEURONTIN) 300 mg capsule Take 300 mg by mouth three times a day. dilTIAZem (CARDIZEM) 30 mg tablet Take 1 tablet by mouth once daily. ondansetron orally disintegrating (ZOFRAN ODT) 4 mg disintegrating tablet Take 4 mg by mouth every 8 hours as needed. ferrous sulfate 325 mg (65 mg iron) EC tablet Take 325 mg by mouth once daily. potassium chloride (K-TAB) 10 mEq tablet Take 10 mEq by mouth two times a day. pantoprazole DR (PROTONIX) 40 mg tablet Take 1 tablet by mouth two times a day. biotin 1 mg cap Take 5,000 mg by mouth once daily. cholecalciferol, vitamin D3, 10 mcg (400 unit) cap Dose : 10,000 Int unit =, Oral, qDay, 0 Refill(s) cetirizine (ZYRTEC) 10 mg tablet Take 10 mg by mouth once daily. fluticasone (FLONASE) 50 mcg/actuation nasal spray Use 1 [place] in each nostril once daily as needed. LIDOCAINE PAIN RELIEF 4 % patch 1 Patch once daily as needed. FLUoxetine (PROZAC) 40 mg capsule Take 80 mg by mouth once daily. ALPRAZolam (XANAX) 0.5 mg tablet Take 1 tablet by mouth at bedtime as needed. (Patient taking differently: Take 0.5 mg by mouth two times a day as needed.) hydrochlorothiazide 25 mg tablet Take 1 tablet by mouth once daily. metFORMIN 1,000 mg tablet Take 1 tablet by mouth twice daily with meals. methylPREDNISolone (MEDROL DOSE-PACK) 4 mg Dose-Pack magnesium oxide 200 mg magnesium chew Take by mouth. Vitamin Z91-Ytuxl Acid 0.5-1 mg tab Take by mouth. gabapentin (NEURONTIN) 100 mg capsule gabapentin 100 mg capsule p (more content not included)...[facility]01-28-2025 History of Present illness Narrative* Juanjose King MD - 04/01/2024 8:30 AM EST (Elements copied from my note dated March 11, 2024, have been reviewed and updated where appropriate, and all reflect current assessment and medical decision making from today's encounter, April 01, 2024) HISTORY OF PRESENT ILLNESS: Belle Smith is a 53 year old female since summer 2023, noted some petechiae like rash on arms has only on arms, does note some bruises , bruises on legs, last about a week or so. Buspirone started November 2023 Protonix started Breast reduction January 2024, had excessive bruising after surgery, but surgeon noted good hemostasis intraoperatively. Had a hysterectomy, did have heavy periods but was attributed to periods No bleeding tendency prior to summer 2023. Colonoscopy up to date. Here for follow up, buspirone has been stopped as of 3 weeks ago. She has noted improvement in the arm bruises CLINICAL IMPRESSION: Looks like solar purpura, possibly exacerbated by buspirone anemia RECOMMENDATION/PLAN: 1. Will check platelet aggregation studies. Written and verbal health teaching given to patient, patient verbalizes understanding and agrees with treatment plan. PAST MEDICAL HISTORY Diagnosis Date Anxiety Back pain, lumbosacral DJD Cervical back pain with evidence of disc disease 2 BULGING DISC Diabetic acidosis, type II (HCC) GERD (gastroesophageal reflux disease) Hidradenitis suppurativa Hypertension Hyponatremia Incarcerated hernia Kidney stones Sleep apnea Vitamin D deficiency PAST SURGICAL HISTORY Procedure Laterality Date COLONOSCOPY W/BIOPSY SINGLE/MULTIPLE 09/04/2012 EGD TRANSORAL BIOPSY SINGLE/MULTIPLE 09/04/2012 FOOT SURGERY HX Bilateral Hammer toe FOOT/TOES SURGERY PROC UNLISTED 03/05/2001 CARTILAGE REMOVED LEFT FOOT GASTRIC BYPASS HX HYSTERECTOMY HX LAPAROSCOPY SURG CHOLECYSTECTOMY 02/06/2012 NEPHROLITHOTOMY REMOVAL STAGE 1 07/13 & 01/06 REDUCTION OF LARGE BREAST Bilateral REPAIR FIRST ABDOMINAL WALL HERNIA 02/06/2012 FAMILY HISTORY Problem Relation Age of Onset Diabetes Mother Hypertension Mother other (CHROHN [Other]) Mother other (CHF [Other]) Mother other (CHF [Other]) Father Diabetes Brother Coronary Artery Disease Brother TRIPLE BYPASS Social History Tobacco Use Smoking status: Former Types: Cigarettes Smokeless tobacco: Never Tobacco comments: Pt smoked one pack daily on & off x 20 years, quit 2012 Vaping Use Vaping status: Never Used Substance Use Topics Alcohol use: Yes Comment: SOCIALLY Drug use: No ALLERGIES: ALLERGIES Allergen Reactions Codeine Rash Hydrocodone Rash Ibuprofen Other: See Comments Pt to avoid taking anything that contains ibuprofen due to history of gastric bypass surgery Naproxen Other: See Comments Sulfa (Sulfonamide * Rash Tramadol Unknown threw me for a loop Vicodin [Hydrocodon* Rash CURRENT OUTPATIENT MEDICATIONS: folic acid 1 mg tablet Take 1 mg by mouth once daily. cholecalciferol (VITAMIN D-3) 400 unit tab Take 400 Units by mouth once daily. cyanocobalamin (VITAMIN B-12) 500 mcg tablet Take 1 tablet by mouth once daily. kwrpps-isgtlzjc-bofkgfy (CREON) 36,000-114,000- 180,000 unit delayed release capsule Take 3 capsules by mouth three times a day with meals. 3 capsules with meals 2 capsules with snacks gabapentin (NEURONTIN) 300 mg capsule Take 300 mg by mouth three times a day. dilTIAZem (CARDIZEM) 30 mg tablet Take 1 tablet by mouth once daily. ondansetron orally disintegrating (ZOFRAN ODT) 4 mg disintegrating tablet Take 4 mg by mouth every 8 hours as needed. ferrous sulfate 325 mg (65 mg iron) EC tablet Take 325 mg by mouth once daily. potassium chloride (K-TAB) 10 mEq tablet Take 10 mEq by mouth two times a day. pantoprazole DR (PROTONIX) 40 mg tablet Take 1 tablet by mouth two times a day. biotin 1 mg cap Take 5,000 mg by mouth once daily. cholecalciferol, vitamin D3, 10 mcg (400 unit) cap Dose : 10,000 Int unit =, Oral, qDay, 0 Refill(s) cetirizine (ZYRTEC) 10 mg tablet Take 10 mg by mouth once daily. fluticasone (FLONASE) 50 mcg/actuation nasal spray Use 1 [place] in each nostril once daily as needed. LIDOCAINE PAIN RELIEF 4 % patch 1 Patch once daily as needed. FLUoxetine (PROZAC) 40 mg capsule Take 80 mg by mouth once daily. ALPRAZolam (XANAX) 0.5 mg tablet Take 1 tablet by mouth at bedtime as needed. (Patient taking differently: Take 0.5 mg by mouth two times a day as needed.) hydrochlorothiazide 25 mg tablet Take 1 tablet by mouth once daily. metFORMIN 1,000 mg tablet Take 1 tablet by mouth twice daily with meals. methylPREDNISolone (MEDROL DOSE-PACK) 4 mg Dose-Pack magnesium oxide 200 mg magnesium chew Take by mouth. Vitamin M78-Qompc Acid 0.5-1 mg tab Take by mouth. gabapentin (NEURONTIN) 100 mg capsule gabapentin 100 mg capsule promethazine (PHENERGAN) 25 mg tablet 25 mg. lisinopril (ZESTRIL) 20 mg tablet lisinopril 20 mg tablet omeprazole (PRILOSEC) 20 mg capsule Take 1 capsule by mouth once daily. REVIEW OF SYSTEMS: GENERAL: No fever, night sweats, weight loss or malaise. All other reviewed and negative other than HPI. PHYSICAL EXAMINATION: VITAL SIGNS: BP 112/76 Pulse 68 Temp (Src) 98.5 (Temporal) Wt 211 lb (95.7kg) SpO2 98% GENERAL APPEARANCE: Well appearing, in no acute distress, alert and oriented x3, well-hydrated, well nourished. SKIN: Skin color, texture, turgor normal. No needle tracks, ulcers, rashes or lesions. Bright red area on right forearm c/w solar purpura I spent a total of 20 minutes on the date of the service which included preparing to see the patient, oqlh-ot-wlvg patient care, completing clinical documentation, obtaining and/or reviewing separately obtained history, performing a medically appropriate examination, counseling and educating the pat ient/family/caregiver, ordering medications, tests, or procedures, independently interpreting results (not separately reported), and communicating results to the patient/family/caregiver. Electronically Signed: Juanjose King MD April 01, 2024 [facility] Discharge instructions* Discharge Instructions* Herbert Higgins DO - 03/31/2024 8:43 AM EST Please follow-up with your dentist. If you develop facial swelling, fevers then this means infection is worsening then you must come back for reevaluation. * Attachments The following attachments cannot be sent through Care Everywhere. * Dental Pain ED (Yoruba) documented in this [facility]01-27-[facility]25 Emergency department Note* Herbert Higgins DO - 03/31/2024 8:27 AM EST EMERGENCY DEPARTMENT ENCOUNTER Pt Name: Belle Smith Birthdate 1970 Date of evaluation: 03/31/2024 ED Provider: Herbert Higgins DO CHIEF COMPLAINT Chief Complaint Patient presents with Dental Pain Pt c/o dental pain x 2 weeks HISTORY OF PRESENT ILLNESS (Location/Symptom, Timing/Onset, Context/Setting, Quality, Duration, Modifying Factors, Severity) Note limiting factors. I wore appropriate PPE for the entirety of this encounter. HPI Belle Smith is a 53 y.o. who presents to the emergency department for evaluation of dental pain, ongoing for last 2 weeks. No fevers or chills. No associated swelling. She has an appoint with her dentist in May. She states that she knows she has a bad tooth on the right lower side and has been giving her problems. She is eating and drinking. She has been using Tylenol for pain. Nursing Notes were reviewed. Limitations to history: None Outside historians: None REVIEW OF SYSTEMS Review of Systems Constitutional: Negative for chills and fever. HENT: Negative for ear pain and sore throat. Right lower dental pain Eyes: Negative for pain and visual disturbance. Respiratory: Negative for cough and shortness of breath. Cardiovascular: Negative for chest pain and palpitations. Gastrointestinal: Negative for abdominal pain and vomiting. Genitourinary: Negative for dysuria and hematuria. Musculoskeletal: Negative for arthralgias and back pain. Skin: Negative for color change and rash. Neurological: Negative for seizures and syncope. All other systems reviewed and are negative. Pertinent positives and negatives as per HPI PAST MEDICAL HISTORY Past Medical History: Diagnosis Date Anxiety Back pain Deficiency of multiple nutrient elements Diabetes mellitus (HCC) GERD (gastroesophageal reflux disease) Hernia, epigastric Hiatal hernia High blood pressure High cholesterol History of kidney stones History of UTI Incontinence Intestinal malabsorption Morbid obesity (HCC) Nausea & vomiting EMANUEL (obstructive sleep apnea) Shortness of breath on exertion Snoring Vitamin B1 deficiency 04/18/2018 Vitamin D deficiency 04/16/2018 Yeast infection Zinc deficiency 04/18/2018 SURGICAL HISTORY Past Surgical History: Procedure Laterality Date CHOLECYSTECTOMY 2011 W/ Hernia repair [facility] FOOT SURGERY 2002 Dr. Sue Noriega x2 GASTRIC BYPASS 07/24/2018 [facility] - Dr. Sorto HERNIA REPAIR 2011 W/ Lap [facility] KIDNEY STONE SURGERY 2010 [place] KIDNEY STONE SURGERY 2003 [facility] [place] UPPER GASTROINTESTINAL ENDOSCOPY 04/22/2018 Dr. Sorto, antral bx CURRENT MEDICATIONS Previous Medications ALBUTEROL 108 (90 BASE) MCG/ACT INHALER INHALE 2 PUFFS BY MOUTH EVERY 4 HOURS NEEDED FOR COUGH ALPRAZOLAM (XANAX) 0.5 MG TABLET TAKE ONE TABLET TWICE DAILY FOR 30 DAYS AMITRIPTYLINE (ELAVIL) 25 MG TABLET Take 1 tablet by mouth Nightly. ALLERGIES Codeine, Hydrocodone-acetaminophen, and Sulfa antibiotics FAMILY HISTORY Family History Problem Relation Name Age of Onset Liver disease Mother Hepatitis C, liver cirrhosis Liver cancer Neg Hx Stroke Maternal Grandmother Diabetes Maternal Grandmother Obesity Paternal Grandfather Stomach cancer Neg Hx Heart disease Father Colon cancer Neg Hx High Blood Pressure Paternal Grandfather High Blood Pressure Mother Heart disease Maternal Grandmother Heart disease Mother Diabetes Father Diabetes Mother Coronary artery disease Father High Blood Pressure Father High Blood Pressure Brother Heart disease Paternal Grandfather Obesity Father Coronary artery disease Brother Heart disease Maternal Grandfather Inflammatory bowel disease Mother 50.00 Diabetes Paternal Grandfather Diabetes Brother Heart disease Brother Diabetes Maternal Grandfather Stroke Maternal Grandfather SOCIAL HISTORY Social History Socioeconomic History Marital status: Tobacco Use Smoking status: Former Current packs/day: 0.00 Average packs/day: 1 pack/day for 23.0 years (23.0 ttl pk-yrs) Types: Cigarettes Start date: 03/05/1989 Quit date: 03/05/2012 Years since quittin.0 Smokeless tobacco: Never Substance and Sexual Activity Alcohol use: Not Currently Alcohol/week: 1.0 standard drink of alcohol Drug use: Never PHYSICAL EXAM ED Triage Vitals [03/31/24 0829] Temp Heart Rate Resp BP 36.6 C (97.8 F) 72 18 109/68 SpO2 Temp src Heart Rate Source Patient Position 99 % -- -- -- BP Location FiO2 (%) -- -- Physical Exam Vitals and nursing note reviewed. Constitutional: General: She is not in acute distress. Appearance: She is well-developed. HENT: Head: Normocephalic and atraumatic. Nose: Nose normal. Mouth/Throat: Pharynx: Oropharynx is clear. Comments: No trismus stridor or drooling. The #28 tooth is broken off, and has generalized decay and mild tenderness around the gingiva but no discrete area of fluctuance or induration to suggest abscess. There is no submandibular swelling or tenderness. Eyes: Conjunctiva/sclera: Conjunctivae normal. Cardiovascular: Rate and Rhythm: Normal rate. Pulmonary: Effort: Pulmonary effort is normal. No respiratory distress. Abdominal: Palpations: Abdomen is soft. Tenderness: There is no abdominal tenderness. Musculoskeletal: General: No swelling. Cervical back: Neck supple. Skin: General: Skin is warm and dry. Capillary Refill: Capillary refill takes less than 2 seconds. Neurological: Mental Status: She is alert. DIAGNOSTIC RESULTS RADIOLOGY (Per Emergency Physician): Interpretation per the Radiologist below, if available at the time of this note: No orders to display LABS: Labs Reviewed - No data to display All other labs were within normal range or not returned as of this dictation. EMERGENCY DEPARTMENT COURSE and DIFFERENTIAL DIAGNOSIS/MDM: Vitals: Vitals: 03/31/24 0829 BP: 109/68 Pulse: 72 Resp: 18 Temp: 36.6 C (97.8 F) SpO2: 99% Weight: 96.2 kg (212 lb) Height: 1.575 m (5' 2) Medications amoxicillin-clavulanate (Augmentin) 875-125 MG per tablet 1 tablet (has no administration in time range) oxyCODONE-acetaminophen (Percocet) 5-325 MG per tablet 1 tablet (has no administration in time range) Patient presents to emergency department for evaluation of right lower dental pain, pain is about the #28 tooth. There is no gingival swelling. No obvious abscess. No trismus stridor or drooling to suggest deep space neck infection. She states she does tolerate Percocet. Will give her 1 dose of Percocet here for pain and will start her on empiric antibiotic Augmentin as well as add Peridex rinse.She needs to follow-up with her dentist, likely needs the tooth pulled as it is partially broken off and with generalized decay. She is understanding and agreeable. She was counseled that if she develops facial swelling, neck swelling difficulty breathing fevers then she must go to emergency department for evaluation. At this time she is hemodynamically stable. No need for any further advanced imaging. She is comfortable and agreeable with plan. PROCEDURES: Unless otherwise noted below, none Procedures FINAL IMPRESSION 1. Pain, dental DISPOSITION Discharge 03/31/2024 08:42:53 AM PATIENT REFERRED TO: No follow-up provider specified. DISCHARGE MEDICATIONS: New Prescriptions AMOXICILLIN-CLAVULANATE (AUGMENTIN) 875-125 MG TABLET Take 1 tablet by mouth every 12 hours for 10 days. CHLORHEXIDINE (PERIDEX) 0.12 % SOLUTION Use 15 mL in the mouth or throat 2 times daily for 14 days. (Comment: Please note this report has been produced using speech recognition software and may contain errors related to that system including errors in grammar, punctuation, and spelling, as well as words and phrases that may be inappropriate. If there are any questions or concerns please feel freeto contact the dictating provider for clarification.) Herbert Higgins DO (electronically signed) Emergency Medicine Provider Herbert Higgins DO 03/31/24 0847 documented in this [facility]01-27[facility] Physician Emergency department Note* Herbert Higgins DO - 03/31/2024 8:27 AM EST EMERGENCY DEPARTMENT ENCOUNTER Pt Name: Belle Smith Birthdate 1970 Date of evaluation: 03/31/2024 ED Provider: Herbert Higgins DO CHIEF COMPLAINT Chief Complaint Patient presents with Dental Pain Pt c/o dental pain x 2 weeks HISTORY OF PRESENT ILLNESS (Location/Symptom, Timing/Onset, Context/Setting, Quality, Duration, Modifying Factors, Severity) Note limiting factors. I wore appropriate PPE for the entirety of this encounter. HPI Belle Smith is a 53 y.o. who presents to the emergency department for evaluation of dental pain, ongoing for last 2 weeks. No fevers or chills. No associated swelling. She has an appoint with her dentist in May. She states that she knows she has a bad tooth on the right lower side and has been giving her problems. She is eating and drinking. She has been using Tylenol for pain. Nursing Notes were reviewed. Limitations to history: None Outside historians: None REVIEW OF SYSTEMS Review of Systems Constitutional: Negative for chills and fever. HENT: Negative for ear pain and sore throat. Right lower dental pain Eyes: Negative for pain and visual disturbance. Respiratory: Negative for cough and shortness of breath. Cardiovascular: Negative for chest pain and palpitations. Gastrointestinal: Negative for abdominal pain and vomiting. Genitourinary: Negative for dysuria and hematuria. Musculoskeletal: Negative for arthralgias and back pain. Skin: Negative for color change and rash. Neurological: Negative for seizures and syncope. All other systems reviewed and are negative. Pertinent positives and negatives as per HPI PAST MEDICAL HISTORY Past Medical History: Diagnosis Date Anxiety Back pain Deficiency of multiple nutrient elements Diabetes mellitus (HCC) GERD (gastroesophageal reflux disease) Hernia, epigastric Hiatal hernia High blood pressure High cholesterol History of kidney stones History of UTI Incontinence Intestinal malabsorption Morbid obesity (HCC) Nausea & vomiting EMANUEL (obstructive sleep apnea) Shortness of breath on exertion Snoring Vitamin B1 deficiency 04/18/2018 Vitamin D deficiency 04/16/2018 Yeast infection Zinc deficiency 04/18/2018 SURGICAL HISTORY Past Surgical History: Procedure Laterality Date CHOLECYSTECTOMY 2011 W/ Hernia repair [facility] FOOT SURGERY 2002 Dr. Sue Noriega x2 GASTRIC BYPASS 07/24/2018 [facility] - Dr. Sorto HERNIA REPAIR 2011 W/ Lap [facility] KIDNEY STONE SURGERY 2010 [place] KIDNEY STONE SURGERY 2003 [facility] TOTAL ABDOMINAL HYSTERECTOMY 2005 [facility] TUBAL LIGATION 1993 [place] UPPER GASTROINTESTINAL ENDOSCOPY 04/22/2018 Dr. Sorto, antral bx CURRENT MEDICATIONS Previous Medications ALBUTEROL 108 (90 BASE) MCG/ACT INHALER INHALE 2 PUFFS BY MOUTH EVERY 4 HOURS NEEDED FOR COUGH ALPRAZOLAM (XANAX) 0.5 MG TABLET TAKE ONE TABLET TWICE DAILY FOR 30 DAYS AMITRIPTYLINE (ELAVIL) 25 MG TABLET Take 1 tablet by mouth Nightly. ALLERGIES Codeine, Hydrocodone-acetaminophen, and Sulfa antibiotics FAMILY HISTORY Family History Problem Relation Name Age of Onset Liver disease Mother Hepatitis C, liver cirrhosis Liver cancer Neg Hx Stroke Maternal Grandmother Diabetes Maternal Grandmother Obesity Paternal Grandfather Stomach cancer Neg Hx Heart disease Father Colon cancer Neg Hx High Blood Pressure Paternal Grandfather High Blood Pressure Mother Heart disease Maternal Grandmother Heart disease Mother Diabetes Father Diabetes Mother Coronary artery disease Father High Blood Pressure Father High Blood Pressure Brother Heart disease Paternal Grandfather Obesity Father Coronary artery disease Brother Heart disease Maternal Grandfather Inflammatory bowel disease Mother 50.00 Diabetes Paternal Grandfather Diabetes Brother Heart disease Brother Diabetes Maternal Grandfather Stroke Maternal Grandfather SOCIAL HISTORY Social History Socioeconomic History Marital status: Tobacco Use Smoking status: Former Current packs/day: 0.00 Average packs/day: 1 pack/day for 23.0 years (23.0 ttl pk-yrs) Types: Cigarettes Start date: 03/05/1989 Quit date: 03/05/2012 Years since quittin.0 Smokeless tobacco: Never Substance and Sexual Activity Alcohol use: Not Currently Alcohol/week: 1.0 standard drink of alcohol Drug use: Never PHYSICAL EXAM ED Triage Vitals [03/31/24 0829] Temp Heart Rate Resp BP 36.6 C (97.8 F) 72 18 109/68 SpO2 Temp src Heart Rate Source Patient Position 99 % -- -- -- BP Location FiO2 (%) -- -- Physical Exam Vitals and nursing note reviewed. Constitutional: General: She is not in acute distress. Appearance: She is well-developed. HENT: Head: Normocephalic and atraumatic. Nose: Nose normal. Mouth/Throat: Pharynx: Oropharynx is clear. Comments: No trismus stridor or drooling. The #28 tooth is broken off, and has generalized decay and mild tenderness around the gingiva but no discrete area of fluctuance or induration to suggest abscess. There is no submandibular swelling or tenderness. Eyes: Conjunctiva/sclera: Conjunctivae normal. Cardiovascular: Rate and Rhythm: Normal rate. Pulmonary: Effort: Pulmonary effort is normal. No respiratory distress. Abdominal: Palpations: Abdomen is soft. Tenderness: There is no abdominal tenderness. Musculoskeletal: General: No swelling. Cervical back: Neck supple. Skin: General: Skin is warm and dry. Capillary Refill: Capillary refill takes less than 2 seconds. Neurological: Mental Status: She is alert. DIAGNOSTIC RESULTS RADIOLOGY (Per Emergency Physician): Interpretation per the Radiologist below, if available at the time of this note: No orders to display LABS: Labs Reviewed - No data to display All other labs were within normal range or not returned as of this dictation. EMERGENCY DEPARTMENT COURSE and DIFFERENTIAL DIAGNOSIS/MDM: Vitals: Vitals: 03/31/24 0829 BP: 109/68 Pulse: 72 Resp: 18 Temp: 36.6 C (97.8 F) SpO2: 99% Weight: 96.2 kg (212 lb) Height: 1.575 m (5' 2) Medications amoxicillin-clavulanate (Augmentin) 875-125 MG per tablet 1 tablet (has no administration in time range) oxyCODONE-acetaminophen (Percocet) 5-325 MG per tablet 1 tablet (has no administration in time range) Patient presents to emergency department for evaluation of right lower dental pain, pain is about the #28 tooth. There is no gingival swelling. No obvious abscess. No trismus stridor or drooling to suggest deep space neck infection. She states she does tolerate Percocet. Will give her 1 dose of Percocet here for pain and will start her on empiric antibiotic Augmentin as well as add Peridex rinse.She needs to follow-up with her dentist, likely needs the tooth pulled as it is partially broken off and with generalized decay. She is understanding and agreeable. She was counseled that if she develops facial swelling, neck swelling difficulty breathing fevers then she must go to emergency department for evaluation. At this time she is hemodynamically stable. No need for any further advanced imaging. She is comfortable and agreeable with plan. PROCEDURES: Unless otherwise noted below, none Procedures FINAL IMPRESSION 1. Pain, dental DISPOSITION Discharge 03/31/2024 08:42:53 AM PATIENT REFERRED TO: No follow-up provider specified. DISCHARGE MEDICATIONS: New Prescriptions AMOXICILLIN-CLAVULANATE (AUGMENTIN) 875-125 MG TABLET Take 1 tablet by mouth every 12 hours for 10 days. CHLORHEXIDINE (PERIDEX) 0.12 % SOLUTION Use 15 mL in the mouth or throat 2 times daily for 14 days. (Comment: Please note this report has been produced using speech recognition software and may contain errors related to that system including errors in grammar, punctuation, and spelling, as well as words and phrases that may be inappropriate. If there are any questions or concerns please feel freeto contact the dictating provider for clarification.) Herbert Higgins DO (electronically signed) Emergency Medicine Provider Herbert Higgins DO 03/31/24 0847 [facility]01-07-2025 NoteHNO ID: [id number] Author: JUANJOSE KING MD Service: ? Author Type: Physician Type: Progress Notes Filed: 03/11/2024 11:41 Note Text: HISTORY OF PRESENT ILLNESS: Belle Smith is a 53 year old female since summer 2023, noted some petechiae like rash on arms has only on arms, does note some bruises , bruises on legs, last about a week or so. Buspirone started November 2023 Protonix started Breast reduction January 2024, had excessive bruising after surgery, but surgeon noted good hemostasis intraoperatively. Had a hysterectomy, did have heavy periods but was attributed to periods No bleeding tendency prior to summer 2023. Colonoscopy up to date. CLINICAL IMPRESSION: Looks like solar purpura, possibly exacerbated by buspirone anemia RECOMMENDATION/PLAN: 1. Labs today including cbc, PT/PTT and anemia studies 2. Back in 3 week, she'll see if she can stop buspirone, possible platelet aggregation studies at that time Written and verbal health teaching given to patient, patient verbalizes understanding and agrees with treatment plan. PAST MEDICAL HISTORY Diagnosis Date Anxiety Back pain, lumbosacral DJD Cervical back pain with evidence of disc disease 2 BULGING DISC Diabetic acidosis, type II (HCC) GERD (gastroesophageal reflux disease) Hidradenitis suppurativa Hypertension Hyponatremia Incarcerated hernia Kidney stones Sleep apnea Vitamin D deficiency PAST SURGICAL HISTORY Procedure Laterality Date COLONOSCOPY W/BIOPSY SINGLE/MULTIPLE 09/04/2012 EGD TRANSORAL BIOPSY SINGLE/MULTIPLE 09/04/2012 FOOT/TOES SURGERY PROC UNLISTED 03/05/2001 CARTILAGE REMOVED LEFT FOOT GASTRIC BYPASS HX HYSTERECTOMY HX LAPAROSCOPY SURG CHOLECYSTECTOMY 02/06/2012 NEPHROLITHOTOMY REMOVAL STAGE 1 07/13 AND 01/06 REDUCTION OF LARGE BREAST Bilateral REPAIR FIRST ABDOMINAL WALL HERNIA 02/06/2012 FAMILY HISTORY Problem Relation Age of Onset Diabetes Mother Hypertension Mother other (CHROHN [Other]) Mother other (CHF [Other]) Mother other (CHF [Other]) Father Diabetes Brother Coronary Artery Disease Brother TRIPLE BYPASS Social History Tobacco Use Smoking status: Former Types: Cigarettes Smokeless tobacco: Never Tobacco comments: Pt smoked one pack daily on AND off x 20 years, quit 2012 Vaping Use Vaping status: Never Used Substance Use Topics Alcohol use: Yes Comment: SOCIALLY Drug use: No ALLERGIES: ALLERGIES Allergen Reactions Codeine Rash Hydrocodone Rash Ibuprofen Other: See Comments Pt to avoid taking anything that contains ibuprofen due to history of gastric bypass surgery Naproxen Other: See Comments Sulfa (Sulfonamide * Rash Tramadol Unknown threw me for a loop Vicodin [Hydrocodon* Rash CURRENT OUTPATIENT MEDICATIONS: gabapentin (NEURONTIN) 300 mg capsule Take 300 mg by mouth three times a day. dilTIAZem (CARDIZEM) 30 mg tablet Take 1 tablet by mouth once daily. ondansetron orally disintegrating (ZOFRAN ODT) 4 mg disintegrating tablet Take 4 mg by mouth every 8 hours as needed. ferrous sulfate 325 mg (65 mg iron) EC tablet Take 325 mg by mouth once daily. potassium chloride (K-TAB) 10 mEq tablet Take 10 mEq by mouth two times a day. pantoprazole DR (PROTONIX) 40 mg tablet Take 1 tablet by mouth two times a day. biotin 1 mg cap Take 5,000 mg by mouth once daily. cetirizine (ZYRTEC) 10 mg tablet Take 10 mg by mouth once daily. fluticasone (FLONASE) 50 mcg/actuation nasal spray Use 1 [place] in each nostril once daily as needed. LIDOCAINE PAIN RELIEF 4 % patch 1 Patch once daily as needed. FLUoxetine (PROZAC) 40 mg capsule Take 80 mg by mouth once daily. ALPRAZolam (XANAX) 0.5 mg tablet Take 1 tablet by mouth at bedtime as needed. (Patient taking differently: Take 0.5 mg by mouth two times a day as needed.) hydrochlorothiazide 25 mg tablet Take 1 tablet by mouth once daily. metFORMIN 1,000 mg tablet Take 1 tablet by mouth twice daily with meals. methylPREDNISolone (MEDROL DOSE-PACK) 4 mg Dose-Pack magnesium oxide 200 mg magnesium chew Take by mouth. Vitamin B01-Nlebl Acid 0.5-1 mg tab Take by mouth. cholecalciferol, vitamin D3, 10 mcg (400 unit) cap Dose : 10,000 Int unit =, Oral, qDay, 0 Refill(s) gabapentin (NEURONTIN) 100 mg capsule gabapentin 100 mg capsule promethazine (PHENERGAN) 25 mg tablet 25 mg. lisinopril (ZESTRIL) 20 mg tablet lisinopril 20 mg tablet omeprazole (PRILOSEC) 20 mg capsule Take 1 capsule by mouth once daily. REVIEW OF SYSTEMS: GENERAL: No fever, night sweats, weight loss or malaise. All other reviewed and negative other than HPI. PHYSICAL EXAMINATION: VITAL SIGNS: BP 134/83 Pulse 56 Temp (Src) 97.8 (Temporal) Ht 5' 2 (1.58m) Wt 215 lb (97.5kg) SpO2 98% BMI 39.31 kg/(m2). GENERAL APPEARANCE: Well appearing, in no acute distress, alert and oriented x3, well-hydrated, well nourished. SKIN: Skin color, texture, turgor normal. No needle tracks, ulcers, ra (more content not included)...[facility]01-07-2025 History of Present illness Narrative* Juanjose King MD - 03/11/2024 9:05 AM EST HISTORY OF PRESENT ILLNESS: Belle Smith is a 53 year old female since summer 2023, noted some petechiae like rash on arms has only on arms, does note some bruises , bruises on legs, last about a week or so. Buspirone started November 2023 Protonix started Breast reduction January 2024, had excessive bruising after surgery, but surgeon noted good hemostasis intraoperatively. Had a hysterectomy, did have heavy periods but was attributed to periods No bleeding tendency prior to summer 2023. Colonoscopy up to date. CLINICAL IMPRESSION: Looks like solar purpura, possibly exacerbated by buspirone anemia RECOMMENDATION/PLAN: 1. Labs today including cbc, PT/PTT and anemia studies 2. Back in 3 week, she'll see if she can stop buspirone, possible platelet aggregation studies at that time Written and verbal health teaching given to patient, patient verbalizes understanding and agrees with treatment plan. PAST MEDICAL HISTORY Diagnosis Date Anxiety Back pain, lumbosacral DJD Cervical back pain with evidence of disc disease 2 BULGING DISC Diabetic acidosis, type II (HCC) GERD (gastroesophageal reflux disease) Hidradenitis suppurativa Hypertension Hyponatremia Incarcerated hernia Kidney stones Sleep apnea Vitamin D deficiency PAST SURGICAL HISTORY Procedure Laterality Date COLONOSCOPY W/BIOPSY SINGLE/MULTIPLE 09/04/2012 EGD TRANSORAL BIOPSY SINGLE/MULTIPLE 09/04/2012 FOOT/TOES SURGERY PROC UNLISTED 03/05/2001 CARTIL[place] REMOVED LEFT FOOT GASTRIC BYPASS HX HYSTERECTOMY HX LAPAROSCOPY SURG CHOLECYSTECTOMY 02/06/2012 NEPHROLITHOTOMY REMOVAL STAGE 1 07/13 & 01/06 REDUCTION OF LARGE BREAST Bilateral REPAIR FIRST ABDOMINAL WALL HERNIA 02/06/2012 FAMILY HISTORY Problem Relation Age of Onset Diabetes Mother Hypertension Mother other (CHROHN [Other]) Mother other (CHF [Other]) Mother other (CHF [Other]) Father Diabetes Brother Coronary Artery Disease Brother TRIPLE BYPASS Social History Tobacco Use Smoking status: Former Types: Cigarettes Smokeless tobacco: Never Tobacco comments: Pt smoked one pack daily on & off x 20 years, quit 2013 Vaping Use Vaping status: Never Used Substance Use Topics Alcohol use: Yes Comment: SOCIALLY Drug use: No ALLERGIES: ALLERGIES Allergen Reactions Codeine Rash Hydrocodone Rash Ibuprofen Other: See Comments Pt to avoid taking anything that contains ibuprofen due to history of gastric bypass surgery Naproxen Other: See Comments Sulfa (Sulfonamide * Rash Tramadol Unknown threw me for a loop Vicodin [Hydrocodon* Rash CURRENT OUTPATIENT MEDICATIONS: gabapentin (NEURONTIN) 300 mg capsule Take 300 mg by mouth three times a day. dilTIAZem (CARDIZEM) 30 mg tablet Take 1 tablet by mouth once daily. ondansetron orally disintegrating (ZOFRAN ODT) 4 mg disintegrating tablet Take 4 mg by mouth every 8 hours as needed. ferrous sulfate 325 mg (65 mg iron) EC tablet Take 325 mg by mouth once daily. potassium chloride (K-TAB) 10 mEq tablet Take 10 mEq by mouth two times a day. pantoprazole DR (PROTONIX) 40 mg tablet Take 1 tablet by mouth two times a day. biotin 1 mg cap Take 5,000 mg by mouth once daily. cetirizine (ZYRTEC) 10 mg tablet Take 10 mg by mouth once daily. fluticasone (FLONASE) 50 mcg/actuation nasal spray Use 1 [place] in each nostril once daily as needed. LIDOCAINE PAIN RELIEF 4 % patch 1 Patch once daily as needed. FLUoxetine (PROZAC) 40 mg capsule Take 80 mg by mouth once daily. ALPRAZolam (XANAX) 0.5 mg tablet Take 1 tablet by mouth at bedtime as needed. (Patient taking differently: Take 0.5 mg by mouth two times a day as needed.) hydrochlorothiazide 25 mg tablet Take 1 tablet by mouth once daily. metFORMIN 1,000 mg tablet Take 1 tablet by mouth twice daily with meals. methylPREDNISolone (MEDROL DOSE-PACK) 4 mg Dose-Pack magnesium oxide 200 mg magnesium chew Take by mouth. Vitamin G49-Mbbpv Acid 0.5-1 mg tab Take by mouth. cholecalciferol, vitamin D3, 10 mcg (400 unit) cap Dose : 10,000 Int unit =, Oral, qDay, 0 Refill(s) gabapentin (NEURONTIN) 100 mg capsule gabapentin 100 mg capsule promethazine (PHENERGAN) 25 mg tablet 25 mg. lisinopril (ZESTRIL) 20 mg tablet lisinopril 20 mg tablet omeprazole (PRILOSEC) 20 mg capsule Take 1 capsule by mouth once daily. REVIEW OF SYSTEMS: GENERAL: No fever, night sweats, weight loss or malaise. All other reviewed and negative other than HPI. PHYSICAL EXAMINATION: VITAL SIGNS: BP 134/83 Pulse 56 Temp (Src) 97.8 (Temporal) Ht 5' 2 (1.58m) Wt 215 lb (97.5kg) SpO2 98% BMI 39.31 kg/(m^2). GENERAL APPEARANCE: Well appearing, in no acute distress, alert and oriented x3, well-hydrated, well nourished. SKIN: Skin color, texture, turgor normal. No needle tracks, ulcers, rashes or lesions. Bright red area on right forearm c/w solar purpura I spent a total of 45 minutes on the date of the service which included preparing to see the patient, [id number] patient care, completing clinical documentation, obtaining and/or reviewing separately obtained history, performing a medically appropriate examination, counseling and educating the pat ient/family/caregiver, ordering medications, tests, or procedures, independently interpreting results (not separately reported), and communicating results to the patient/family/caregiver. Electronically Signed: Juanjose King MD March 11, 2024 9:06 AM documented in this encounterPrem[facility] Telephone encounter Note * Telephone Encounter - Jeanna Santos LPN - 01/29/2024 12:25 PM EST Patient notified.Jeanna Santos LPN [facility]11-26-[facility]24 Miscellaneous Notes* Telephone Encounter - Jeanna Santos LPN - 01/29/2024 12:25 PM EST Patient notified.Jeanna Santos LPN * Telephone Encounter - Mima Holder PA - 01/29/2024 12:22 PM EST Called patient, left voicemail to return call. If she returns call, please let her know to not takeher Xanax while taking the Diflucan for yeast. documented in this encounterPrem[facility]11-[facility]24 Telephone encounter Note * Telephone Encounter - Mima Holder PA - 01/29/2024 12:22 PM EST Called patient, left voicemail to return call. If she returns call, please let her know to not takeher Xanax while taking the Diflucan for yeast. [facility]11-26-[facility]24 NoteHNO ID: [id number] Author: MIMA HOLDER PA Service: ? Author Type: Physician Talent Partner Type: Progress Notes Filed: 01/29/2024 12:23 Note Text: This note was created using Negevtech[employer]. Subjective Belle Smith is a 53 year old female. HPI 53-year-old female presents for dysuria, bladder pressure starting this morning. Patient states she got up this morning and felt an urge to urinate. She states that she had some burning with urination and some bladder pressure after urinating. She did not notice any blood in the urine. No abdominal pain or back pain. No fevers or vomiting. She did have a breast augmentation surgery last week and had a catheter in at that time. She states that she was on antibiotics postsurgery as well, but his finish those. She is concerned she may have a UTI or yeast infection. She does get yeast infections frequently especially after antibiotics. She denies any vaginal discharge, but does report a little bit of itching. No rash present. No other complaint. PAST MEDICAL HISTORY Diagnosis Date Anxiety Back pain, lumbosacral DJD Cervical back pain with evidence of disc disease 2 BULGING DISC Diabetic acidosis, type II (HCC) GERD (gastroesophageal reflux disease) Hidradenitis suppurativa Hypertension Hyponatremia Incarcerated hernia Kidney stones Sleep apnea Vitamin D deficiency PAST SURGICAL HISTORY Procedure Laterality Date COLONOSCOPY W/BIOPSY SINGLE/MULTIPLE 09/04/2012 EGD TRANSORAL BIOPSY SINGLE/MULTIPLE 09/04/2012 FOOT/TOES SURGERY PROC UNLISTED 03/05/2001 CARTILAGE REMOVED LEFT FOOT GASTRIC BYPASS HX HYSTERECTOMY HX LAPAROSCOPY SURG CHOLECYSTECTOMY 02/06/2012 NEPHROLITHOTOMY REMOVAL STAGE 1 07/13 AND 01/06 REPAIR FIRST ABDOMINAL WALL HERNIA 02/06/2012 ALLERGIES Codeine, Hydrocodone, Naproxen, Sulfa (Sulfonamide Antibiotics), Tramadol, and Vicodin [Hydrocodone-Acetaminophen] MEDICATIONS nitrofurantoin monohydrate and macrocrystal (MACROBID) 100 mg capsule Take 1 capsule by mouth two times a day for 5 days. fluconazole (DIFLUCAN) 150 mg tablet Take 1 tablet by mouth one time only for 1 dose. Repeat in 3 days as needed. methylPREDNISolone (MEDROL DOSE-PACK) 4 mg Dose-Pack biotin 1 mg cap 5 mg. magnesium oxide 200 mg magnesium chew Take by mouth. Vitamin S13-Irepz Acid 0.5-1 mg tab Take by mouth. cholecalciferol, vitamin D3, 10 mcg (400 unit) cap Dose : 10,000 Int unit =, Oral, qDay, 0 Refill(s) cetirizine (ZYRTEC) 10 mg tablet cetirizine 10 mg tablet fluticasone (FLONASE) 50 mcg/actuation nasal spray fluticasone propionate 50 mcg/actuation nasal spray,suspension gabapentin (NEURONTIN) 100 mg capsule gabapentin 100 mg capsule LIDOCAINE PAIN RELIEF 4 % patch promethazine (PHENERGAN) 25 mg tablet 25 mg. FLUoxetine (PROZAC) 40 mg capsule 80 mg. lisinopril (ZESTRIL) 20 mg tablet lisinopril 20 mg tablet omeprazole (PRILOSEC) 20 mg capsule Take 1 capsule by mouth once daily. ALPRAZolam (XANAX) 0.5 mg tablet Take 1 tablet by mouth at bedtime as needed. hydrochlorothiazide 25 mg tablet Take 1 tablet by mouth once daily. metFORMIN 1,000 mg tablet Take 1 tablet by mouth twice daily with meals. FAMILY HISTORY Problem Relation Age of Onset Diabetes Mother Hypertension Mother other (CHROHN [Other]) Mother other (CHF [Other]) Mother Coronary Artery Disease Brother TRIPLE [place]PASS other (CHF [Other]) Father Diabetes Brother Social History Tobacco Use Smoking status: Former Current packs/day: 0.50 Average packs/day: 0.5 packs/day for 22.0 years (11.0 ttl pk-yrs) Types: Cigarettes Vaping Use Vaping status: Never Used Substance Use Topics Alcohol use: Yes Comment: SOCIALLY Drug use: No Review of Systems Constitutional: Negative for chills and fever. HENT: Negative for congestion, ear pain and sore throat. Respiratory: Negative for cough and shortness of breath. Cardiovascular: Negative for chest pain. Gastrointestinal: Negative for abdominal pain, diarrhea and vomiting. Genitourinary: Positive for dysuria, frequency and urgency. Negative for hematuria, vaginal bleeding, vaginal discharge and vaginal pain. Objective BP 101/62 Pulse 69 Temp 36.4 ?C (97.6 ?F) Resp 18 Wt 98.4 kg (216 lb 14.9 oz) SpO2 100% BMI 39.68 kg/m? Physical Exam Vitals and nursing note reviewed. Constitutional: General: She is not in acute distress. Appearance: Normal appearance. She is not toxic-appearing. HENT: Nose: Nose normal. Mouth/Throat: Mouth: Mucous membranes are moist. Eyes: Conjunctiva/sclera: Conjunctivae normal. Cardiovascular: Rate and Rhythm: Normal rate and regular rhythm. Pulmonary: Effort: Pulmonary effort is normal. Breath sounds: Normal breath sounds. Abdominal: General: Abdomen is flat. Palpations: Abdomen is soft. Tenderness: There is no abdominal tenderness. There is no right CVA tenderness or left CVA tenderness. Genitourinary: Comments: Deferred by p (more content not included)...[facility] 01-29-2024 History of Present illness Narrative* Mima Holder PA - 01/29/2024 12:19 PM EST This note was created using NoteWriter. Subjective Belle Smith is a 53 year old female. HPI 53-year-old female presents for dysuria, bladder pressure starting this morning. Patient statesshe got up this morning and felt an urge to urinate. She states that she had some burning with urination and some bladder pressure after urinating. She did not notice any blood in the urine. No abdominal pain or back pain. No fevers or vomiting. She did have a breast augmentation surgery last week and had a catheter in at that time. She states that she was on antibiotics postsurgery as well, but his finish those. She is concerned she may have a UTI or yeast infection. She does get yeast infections frequently especially after antibiotics. She denies any vaginal discharge, but does report a little bit of itching. No rash present. No other complaint. PAST MEDICAL HISTORY Diagnosis Date Anxiety Back pain, lumbosacral DJD Cervical back pain with evidence of disc disease 2 BULGING DISC Diabetic acidosis, type II (HCC) GERD (gastroesophageal reflux disease) Hidradenitis suppurativa Hypertension Hyponatremia Incarcerated hernia Kidney stones Sleep apnea Vitamin D deficiency PAST SURGICAL HISTORY Procedure Laterality Date COLONOSCOPY W/BIOPSY SINGLE/MULTIPLE 09/04/2012 EGD TRANSORAL BIOPSY SINGLE/MULTIPLE 09/04/2012 FOOT/TOES SURGERY PROC UNLISTED 03/05/2001 CARTILAGE REMOVED LEFT FOOT GASTRIC BYPASS HX HYSTERECTOMY HX LAPAROSCOPY SURG CHOLECYSTECTOMY 02/06/2012 NEPHROLITHOTOMY REMOVAL STAGE 1 07/13 & 01/06 REPAIR FIRST ABDOMINAL WALL HERNIA 02/06/2012 ALLERGIES Codeine, Hydrocodone, Naproxen, Sulfa (Sulfonamide Antibiotics), Tramadol, and Vicodin [Hydrocodone-Acetaminophen] MEDICATIONS nitrofurantoin monohydrate and macrocrystal (MACROBID) 100 mg capsule Take 1 capsule by mouth two times a day for 5 days. fluconazole (DIFLUCAN) 150 mg tablet Take 1 tablet by mouth one time only for 1 dose. Repeat in 3 days as needed. methylPREDNISolone (MEDROL DOSE-PACK) 4 mg Dose-Pack biotin 1 mg cap 5 mg. magnesium oxide 200 mg magnesium chew Take by mouth. Vitamin N21-Gjrnb Acid 0.5-1 mg tab Take by mouth. cholecalciferol, vitamin D3, 10 mcg (400 unit) cap Dose : 10,000 Int unit =, Oral, qDay, 0 Refill(s) cetirizine (ZYRTEC) 10 mg tablet cetirizine 10 mg tablet fluticasone (FLONASE) 50 mcg/actuation nasal spray fluticasone propionate 50 mcg/actuation nasal spray,suspension gabapentin (NEURONTIN) 100 mg capsule gabapentin 100 mg capsule LIDOCAINE PAIN RELIEF 4 % patch promethazine (PHENERGAN) 25 mg tablet 25 mg. FLUoxetine (PROZAC) 40 mg capsule 80 mg. lisinopril (ZESTRIL) 20 mg tablet lisinopril 20 mg tablet omeprazole (PRILOSEC) 20 mg capsule Take 1 capsule by mouth once daily. ALPRAZolam (XANAX) 0.5 mg tablet Take 1 tablet by mouth at bedtime as needed. hydrochlorothiazide 25 mg tablet Take 1 tablet by mouth once daily. metFORMIN 1,000 mg tablet Take 1 tablet by mouth twice daily with meals. FAMILY HISTORY Problem Relation Age of Onset Diabetes Mother Hypertension Mother other (CHROHN [Other]) Mother other (CHF [Other]) Mother Coronary Artery Disease Brother [place] other (CHF [Other]) Father Diabetes Brother Social History Tobacco Use Smoking status: Former Current packs/day: 0.50 Average packs/day: 0.5 packs/day for 22.0 years (11.0 ttl pk-yrs) Types: Cigarettes Vaping Use Vaping status: Never Used Substance Use Topics Alcohol use: Yes Comment: SOCIALLY Drug use: No Review of Systems Constitutional: Negative for chills and fever. HENT: Negative for congestion, ear pain and sore throat. Respiratory: Negative for cough and shortness of breath. Cardiovascular: Negative for chest pain. Gastrointestinal: Negative for abdominal pain, diarrhea and vomiting. Genitourinary: Positive for dysuria, frequency and urgency. Negative for hematuria, vaginal bleeding, vaginal discharge and vaginal pain. Objective BP 101/62 Pulse 69 Temp 36.4 C (97.6 F) Resp 18 Wt 98.4 kg (216 lb 14.9 oz) SpO2 100% BMI 39.68 kg/m Physical Exam Vitals and nursing note reviewed. Constitutional: General: She is not in acute distress. Appearance: Normal appearance. She is not toxic-appearing. HENT: Nose: Nose normal. Mouth/Throat: Mouth: Mucous membranes are moist. Eyes: Conjunctiva/sclera: Conjunctivae normal. Cardiovascular: Rate and Rhythm: Normal rate and regular rhythm. Pulmonary: Effort: Pulmonary effort is normal. Breath sounds: Normal breath sounds. Abdominal: General: Abdomen is flat. Palpations: Abdomen is soft. Tenderness: There is no abdominal tenderness. There is no right CVA tenderness or left CVA tenderness. Genitourinary: Comments: Deferred by patient Skin: General: Skin is warm and dry. Neurological: Mental Status: She is alert. Assessment and Plan ASSESSMENT/PLAN: 1. Dysuria - ICD9: 788.1, ICD10: R30.0 (primary diagnosis) acute - UA positive for farhan esterase and nitrates - Send urine for culture - Begin treatment with Macrobid 100 mg BID for 5 days - Patient education for prevention given - UA DIP, URINE (POC) - URINE CULTURE - RICARDO/TRICHOMONAS NAAT - BACTERIAL VAGINOSIS NAAT 2. Vaginal itching - ICD9: 698.1, ICD10: N89.8 - RICARDO/TRICHOMONAS NAAT - BACTERIAL VAGINOSIS NAAT -Rx for Diflucan given as patient reports recurring yeast infections after antibiotics which patient is on above for UTI. -Advised patient do not take Xanax while on the Diflucan. -If BV positive, please treat accordingly. Diagnosis and treatment plan were discussed and questions were answered to the patient's satisfaction. Pt acknowledged understanding of concepts and follow up plan. Specific signs and symptoms that would indicate the need for higher level of care were discussed in detail warranting prompt ER evaluation. MIKE Mckeon documented in this encounterPrem[facility]11-[facility]-2024 [facility] Medical Records Department [address] [place] [address] History Physical Exam 01/18/24 0714 MR#: [id number] Acct: [id number] Name: BELLE HAMM Rep #: [id number] : 1970 53 From: Teresa Ramsey MD PCP: Dr. Berenice Bowling, DO Status:[facility] Location: [place] [address] History and Physical Date of Admission: 01/18/24 The patient presents for bilateral breast reduction. She is marked in the pre-op area. Informed consent obtained for bilateral breast reduction. There are no changes to the H P dated 01/03/24. Assessment Plan Assessment/Plan (1) Chronic shoulder pain: (2) Chronic neck pain: (3) Breast hypertrophy: PLAN: Plan Pt for bilateral breast reduction 01/18/24 0716 Cosigner Signature (if applicable): CC: Dr. Berenice Bowling, DO; Dr. Teresa Ramsey MD [facility]09-26-2024 Hospital Discharge instructions Patient Education 11/29/2023 02:12:28 Anxiety Reaction Anxiety Reaction Anxiety is the feeling we all get when we think something bad might happen. It is a normal responseto stress and usually causes only a mild reaction. When anxiety becomes more severe, it can interfere with daily life. In some cases, you may not even be aware of what it is you re anxious about. There may also be a genetic link or it may be a learned behavior in the home. Both psychological and physical triggers cause stress reaction. It's often a response to fear or emotional stress, real or imagined. This stress may come from home, family, work, or social relationships. During an anxiety reaction, you may feel: Helpless Nervous Depressed Irritable Your body may show signs of anxiety in many ways. You may experience: Dry mouth Shakiness Dizziness Weakness Trouble breathing Breathing fast (hyperventilating) Chest pressure Sweating Headache Nausea Diarrhea Tiredness Inability to sleep Sexual problems Home care Try to locate the sources of stress in your life. They may not be obvious. These may include: oDaily hassles of life (such as traffic jams, missed appointments, or car troubles) oMajor life changes, both good (new baby or job promotion) and bad (loss of job or loss of loved one) oOverload: feeling that you have too many responsibilities and can't take care of all of them at once oFeeling helpless or feeling that your problems are beyond what you re able to solve Notice how your body reacts to stress. Learn to listen to your body signals. This will help you take action before the stress becomes severe. When you can, do something about the source of your stress. (Avoid hassles, limit the amount of change that happens in your life at one time and take a break when you feel overloaded). Unfortunately, many stressful situations can't be avoided. It is necessary to learn how to better manage stress. There are many proven methods that will reduce your anxiety. These include simple things like exercise, good nutrition, and adequate rest. Also, there are certain techniques that are helpful: oRelaxation oBreathing exercises oVisualization oBiofeedback oMeditation For more information about this, consult your healthcare provider or go to a local bookstore and review the many books and tapes available on this subject. Follow-up care If you feel that your anxiety is not responding to self-help measures, contact your healthcare provider or make an appointment with a counselor. You may need short-term psychological counseling and temporary medicine to help you manage stress. Call 911 Call 911 if any of these happen: Trouble breathing Confusion Drowsiness or trouble wakening Fainting or loss of consciousness Rapid heart rate Seizure New chest pain that becomes more severe, lasts longer, or spreads into your shoulder, arm, neck, jaw, or back When to seek medical advice Call your healthcare provider right away if any of these happen: Your symptoms get worse Severe headache not relieved by rest and mild pain reliever [phone] [employer]. [address] [place] [address]. All rights reserved. This information is not intended as a substitute for professional medical care. Always follow yourhealthcare professional's instructions. Follow Up Care 11/29/2023 01:51:17 With:BERENICE BOWLING DO Address: [address] [place] [phone] When:2-4 days [facility] 09-26-2024 Note Discharge Instructions Thank you for allowing [facility] to assist you with your healthcare needs. The following is importantdischarge information regarding your hospital visit. Diagnosis from Today's Visit Anxiety state What to Do Next Instructions from Your Care Team No qualifying data available. Post Acute Orders No qualifying data available. You Need to Schedule the Following Appointments Follow Up with BERENICE BOWLING DO When:Within 2-4 days Where:[address] [place] [phone] Allergies NSAIDS due to bypass surgery Vicodin Rash codeine Rash sulfa drugs Rash traMADol Unknown Medications Please ask your primary doctor or pharmacist before taking any other medication not listed, including over the counter drugs, herbal medications, vitamins and or supplements as they may interact withyour home medications. What How Much When Why Instructions Last Dose Changed ALPRAZolam (ALPRAZolam 0.5 mg oral tablet) 1 tab(s) by mouth Two (2) times a day Anxiety state Duration: 5 Days Printed Prescription Changed ALPRAZolam (ALPRAZolam 0.5 mg oral tablet) 1 tab(s) by mouth Two (2) times a day ISABELLA (generalized anxiety disorder) Duration: 30 Days Unchanged amitriptyline (amitriptyline 25 mg oral tablet) 1 tab(s) by mouth Every day Unchanged cetirizine (cetirizine 10 mg oral tablet) 1 tab(s) by mouth Once a day Unchanged diclofenac topical (Voltaren 1% topical gel) 2 gram(s) Topical Four (4) times a day Unchanged dilTIAZem (dilTIAZem 30 mg oral tablet) 1 tab(s) by mouth Every day Unchanged dulaglutide (Trulicity Pen 0.75 mg/ 0.5 mL subcutaneous solution) 0.5 Milliliter Subcutaneous Every week rotate injection sites Unchanged FLUoxetine (FLUoxetine 40 mg oral capsule) 2 cap by mouth Once a day Unchanged fluticasone nasal (Flonase 50 mcg/ inh nasal spray) 2 spray(s) each nostril Once a day (in the morning) Unchanged gabapentin (gabapentin 300 mg oral capsule) 1 cap by mouth Three (3) times a day Peripheral neuropathy Duration: 90 Days Unchanged hydroCHLOROthiazide (hydroCHLOROthiazide 25 mg oral tablet) 1 tab(s) by mouth Once a day Unchanged lisinopril (lisinopril 20 mg oral tablet) 1 tab(s) by mouth Once a day Unchanged metFORMIN (MetFORMIN (Eqv-Glucophage XR) 500 mg oral tablet, EXTENDED RELEASE) 2 tab(s) by mouth Two (2) times a day Unchanged nystatin topical (nystatin 100,000 units/ g topical powder) 1 application Topical Two (2) times a day Unchanged ondansetron (Zofran) Unchanged pantoprazole (pantoprazole 20 mg oral enteric coated tablet) 1 tab(s) by mouth Two (2) times a day Unchanged promethazine (promethazine 25 mg oral tablet) 1 tab(s) by mouth Every 4 hours as needed for as needed for nausea/vomiting Please take this list to your next doctor s visit. Bring all medications you take, including over the counter medications, herbals and other supplements with you to your doctor s visit. Patients and families are reminded to discard old lists and to update any records with all medication providers or retail pharmacies. Education Materials Anxiety Reaction Anxiety is the feeling we all get when we think something bad might happen. It is a normal responseto stress and usually causes only a mild reaction. When anxiety becomes more severe, it can interfere with daily life. In some cases, you may not even be aware of what it is you re anxious about. There may also be a genetic link or it may be a learned behavior in the home. Both psychological and physical triggers cause stress reaction. It's often a response to fear or emotional stress, real or imagined. This stress may come from home, family, work, or social relationships. During an anxiety reaction, you may feel: Helpless Nervous Depressed Irritable Your body may show signs of anxiety in many ways. You may experience: Dry mouth Shakiness Dizziness Weakness Trouble breathing Breathing fast (hyperventilating) Chest pressure Sweating Headache Nausea Diarrhea Tiredness Inability to sleep Sexual problems Home care Try to locate the sources of stress in your life. They may not be obvious. These may include: oDaily hassles of life (such as traffic jams, missed appointments, or car troubles) oMajor life changes, both good (new baby or job promotion) and bad (loss of job or loss of loved one) oOverload: feeling that you have too many responsibilities and can't take care of all of them at once oFeeling helpless or feeling that your problems are beyond what you re able to solve Notice how your body reacts to stress. Learn to listen to your body signals. This will help you take action before the stress becomes severe. When you can, do something about the source of your stress. (Avoid hassles, limit the amount of change that happens in your life at one time and take a break when you feel overloaded). Unfortunately, many stressful situations can't be avoided. It is necessary to learn how to better manage stress. There are many proven methods that will reduce your anxiety. These include simple things like exercise, good nutrition, and adequate rest. Also, there are certain techniques that are helpful: oRelaxation oBreathing exercises oVisualization oBiofeedback oMeditation For more information about this, consult your healthcare provider or go to a local bookstore and review the many books and tapes available on this subject. Follow-up care If you feel that your anxiety is not responding to self-help measures, contact your healthcare provider or make an appointment with a counselor. You may need short-term psychological counseling and temporary medicine to help you manage stress. Call 911 Call 911 if any of these happen: Trouble breathing Confusion Drowsiness or trouble wakening Fainting or loss of consciousness Rapid heart rate Seizure New chest pain that becomes more severe, lasts longer, or spreads into your shoulder, arm, neck, jaw, or back When to seek medical advice Call your healthcare provider right away if any of these happen: Your symptoms get worse Severe headache not relieved by rest and mild pain reliever [phone] [employer]. [address] [place] [address]. All rights reserved. This information is not intended as a substitute for professional medical care. Always follow yourhealthcare professional's instructions. Additional Information VACCINATE! IT SAVES LIVES! Members of the community who have not yet received the COVID-19 vaccine and would like to receive it can visit one of [facility] vaccine clinics. There are many vaccine clinic locations within the [facility]. For locations and available times, please visit www.gettheshot.coronavirus.[place].gov/. It is important to note that some COVID mobile vaccine clinics are held outdoors and may be canceled in rainy or stormy conditions. To learn more about pediatric vaccinations (ages 5-11), we invite you to visit the [facility] webpage. https://www.[facility].org/pages/5121-Elhwc-Lfjvbndtffg-Npnmyqjikp-Regdm-Gye stions.htmlTo learn more about the COVID-19 vaccine, we invite you to visit the CDC website for a list of frequently asked questions. https://www.cdc.gov/coronavirus/2019-ncov/vaccines/faq.html [facility] Patient Portal Access Instructions: Stay connected with your healthcare team and access your personal medical information anytime with the [facility] Patient Portal. If you would like a full copy of your medical records please contact the [facility] Medical Records Department Sunday through Sunday between 8a.m. and 4:30p.m. Please follow the directions below to access the portal: 1.Access the email account you provided upon registration to the [facility].2.Look for an invitation email from [facility].3.Open the email and access the invitation link: Accept Invitation to [facility].Fill in the required wilkinson to create your account. Sign into [facility] with your username and password that you created in the above steps to stay up to date. You can then view a summary of results, a summary of your visits, and the ability to download your summaries to your computer or send the information securely to a physician. Remember that your healthcare information is confidential, so carefully consider who you will allow to register on the [facility] Patient Portal for access to your information. You can also access the [facility] Patient Portal on the [employer] eric. Simply click on Health Records under [place] and then click on the [facility] logo. HOW TO SAFELY DISPOSE OF PRESCRIPTION MEDICATIONS Please use one of the following methods to safely dispose of your unused medications. 1.Use a drug disposal kit: the drug disposal pouch allows you to safely discard your old and unuseddrugs. Ask your nurse to give you one when you are discharged.2.Visit a local take-back location: Many local pharmacies and police departments have programs that collect old and unwanted prescriptiondrugs. Call your local pharmacy or go to http://AkesoGenX.Profista/2L0Iu7t to find one close to you.3.Make use of household items: Use cat litter or old coffee grounds to dispose medications if other options arenot available. Mix your drugs with these household products, seal them in an airtight container andthrow it into the garbage. Call [facility]: [phone] to be sure your drugs can be disposed of in this way. Some medicines may require a different approach.4.Never flush your medications down the toilet. IF YOU HAVE BEEN PRESCRIBED AN OPIOIDS FOR PAIN If you have been prescribed an opioid (such as hydrocodone, oxycodone or morphine), it is critical to understand the possible side effects and risks of opioid pain medications. Even when taken as directed, opioids can have several side effects including: Tolerance, meaning you might need to take more of a medication for the same pain relief. Nausea, vomiting and/or constipation. Sleepiness, dizziness, dry mouth, confusion, depression or itching. Physical dependence, meaning you have withdrawal symptoms when a medication is stopped ? this can develop within a few days. KNOW YOUR RESPONSIBILITIES It is important to know exactly how much and how often to take the opioid pain medications you are prescribed. Never take opioids in higher amounts or more often than prescribed. Do not combine opioids with alcohol or other drugs that cause drowsiness, such as benzodiazepines, also known as benzos,including diazepam and alprazolam, muscle relaxants or sleep aids. Never sell or share prescriptionopioids. This is illegal. Store opioids in a secure place and out of reach of others (including children, family, friends and visitors). The last page(s) of this document has been signed and retained as a CHART COPY Signatures Patient Education Materials Anxiety Reaction Medication Leaflets My discharge plan and instructions have been reviewed and explained to me and ILUIS AMY M understand my current condition and have read and understand these discharge instructions. I have received a written copy of the plan/instructions. If I have questions, I am aware that I should contact my doctor. 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 Berenice Bowling, DO Status:REG [facility] Location: [place] [address] History and Physical Date of Admission: 11/16/23 BELLE HAMM, is a 52 F who presents to the office today for follow up. *[facility] established 04.14.21 for screening colonoscopy and intermittent esophageal dysphagia. History of Cristian-en-Y gastric bypass 2018; cholecystectomy 09.11.18 ? EGD and colonoscopy 06.13.21 Irregular Zline; small hiatal hernia; Cristian-en-y gastrojejunostomy with healthy anastomosis. Metaplasia neg. ? Colonoscopy hemorrhoids; diverticulosis. No specimens OV 09.30.21 still has intermittent dysphagia but finds PPI and gas-X helpful. Start reglan and PPI BID. OV 01.11.23 she has been having nausea followed by dysphagia with intermittent emesis following PO intake. She is not taking protonix or reglan. BM pattern is regular and without difficulty. ? EGD 01.30.23 esophageal stenosis, Savary 60F; irregular Zline; medium hiatal hernia; Cristian-en-Y with healthy anastomosis. No metaplasia ? Upper GISBFT 02.12.23 no acute/chronic abnormality. OV 02.16.23 feels swallowing, nausea have improved but are still present; epigastric pain continues. Admits to poor diet as she does a lot of traveling. OV 07.25.23 pt reports that N/V have improved and occur maybe once or twice a month. Pt continues to struggle with swallowing and feels like food is getting stuck in her throat. ROS Const Constitutional: Positive for fatigue and weight change (weight loss and gain ); No fever(s) ENT ENT: Positive for difficulty swallowing Cardio Cardiology: Positive for leg pain with exertion Gastro GI: Positive for bloating, difficulty swallowing, excessive flatus, nausea/dyspepsia and vomiting; No abdominal pain, belching, change in bowel habits, change in stool character, coffee ground emesis, constipation, cramping, diarrhea, heartburn, feeling full early, incontinent of stools, Vomiting blood/hematemesis, Blood in stool, loose stools, Black,tarry stools, pain with swallowing or other Musc Musculoskeletal: Positive for joint pain, back pain, joint swelling, muscle cramps, muscle weakness, numbness, tingling, Arthritis, leg pain at night and leg pain with exertion Skin Skin: No yellowing of the eye or itchy eyes Neuro Neurology: Positive for numbness, tingling and tremor(s) Psych Psychiatric: Positive for anxiety and No depression Endo Endocrine: Positive for fatigue and weight change (weight loss and gain ) Aller/Imm Allergy/Immunologic: No itchy eyes Dioni/Lymp Hematologic/Lymphatic: Positive for easy bruising; No easy bleeding Exam Const General: cooperative, healthy appearing, comfortable, no acute distress, well developed and well groomed Nutritional Appearance: overweight Orientation: alert, awake and oriented x3 HENMT Head: normocephalic and atraumatic Resp Effort Inspection: normal respiratory effort, able to speak in complete sentences, symmetric chest movement and no cough Auscultation: Bilateral: Clear to Auscultation Cardio Rate: regular rate Rhythm: regular rhythm Heart Sounds: no murmurs Skin Other: right upper chest irreg annular lesion about 3 inch in diameter, slightly raised, mildly erythematous, mildly excoriated, no drainage, nontender, no inc. warmth Assessment and Plan Assessment and Plan (1) Dysphagia: Status: Chronic Qualifiers: Dysphagia type: esophageal phase Qualified Code(s): R13.19 - Other dysphagia Plan: She will need to undergo an upper endoscopy to evaluate upper GI tract with botox and possible dilation. She was explained alternatives, risk, benefits include not withstanding bleeding, pectin, sepsis, perforation, need for return to . She will have an ASA of 3. (2) History of Cristian-en-Y gastric bypass: Status: Chronic Comment: 2019 (3) Nausea: Status: Chronic Plan: Chronic nausea can be a side effect from gastric bypass due to removal of gastrin. I would like to get a upper GI with follow-through plus or minus gastric emptying study (4) GERD (gastroesophageal reflux disease): Status: Inactive Qualifiers: Esophagitis presence: with esophagitis Esophagitis bleeding: without hemorrhage Qualified Code(s): K21.00 - Gastro-esophageal reflux disease with esophagitis, without bleeding Plan: She is having worsening gastroesophageal reflux disease that I thought was secondary to bile induced gastritis. She underwent an upper endoscopy was discovered to have a patent wire with a normal gastri (more content not included)...[facility]07-13-2024 Note. MICRO - Microbiology PROCEDURE: Urine Culture [*1] SOURCE: Urine, Clean Catch BODY SITE: COLLECTED DATE/TIME: 09/14/2023 10:13 EDT RECEIVED DATE/TIME: 09/14/2023 14:29 EDT START DATE/TIME: 09/14/2023 14:29 EDT FREE TEXT SOURCE: FINAL REPORTS Final Report [] Verified Date/Time/Personnel: 09/15/2023 15:12 EDT 10,000 - 50,000 cfu/ml Mixed growth consistent with normal urogenital kwadwo. PRELIMINARY REPORTS Preliminary Report [] Verified Date/Time/Personnel: 09/15/2023 10:42 EDT Culture results pending. Performing Locations *1: This test was performed at: [address], [address]- , [facility]01-30-2023 Procedure [facility]11-28-2023 Procedure [facility]09-22-2023 Hospital Discharge instructions Patient Education 11/24/2022 13:19:34 1- [facility] General Discharge Guidelines (11/17/2022)(CUSTOM) [facility] SAME DAY SURGERY DISCHARGE INSTRUCTIONS PLEASE FOLLOW THE INSTRUCTIONS BELOW MARKED WITH AN X: __X_Regular Diet: Start with clear liquids, then soup and crackers. Gradually add other foods unless otherwise instructed by your surgeon __X_Drink extra fluids ACTIVTY: __X_Since you have had anesthetic, it would be advisable not to drive, drink alcohol, or make majordecisions over the next 24 hours. You may require more rest tonight and tomorrow __X_Do not drive vehicle while taking narcotics and as directed by your Surgeon ____Restrict activity as follows: ____Do not have sexual intercourse. Nothing in the vagina-No tampons or Douching ____No heavy lifting, pushing, or straining ____Elevate operative limb __X__Ice as directed __X_Follow all written and verbal instructions given to you by your Doctor ____Other: DRESSING: _X___Keep operative area clean and dry _X___Check the operative area for signs of bleeding. Apply pressure to the bleeding site if necessary. WATCH FOR SIGNS OF INFECTION: (Usually appears 36-48 hours after surgery) Increased temperature (101 degrees Fahrenheit or higher) Redness or swelling Increased pain Foul odor or drainage If you have any questions, please call your doctor at the number listed on your follow-up instructions. 11/24/2022 13:18:56 Monitored Anesthesia Care, Care After Monitored Anesthesia Care, Care After These instructions provide you with information about caring for yourself after your procedure. Your health care provider may also give you more specific instructions. Your treatment has been plannedaccording to current medical practices, but problems sometimes occur. Call your health care provider if you have any problems or questions after your procedure. What can I expect after the procedure? After your procedure, you may: Feel sleepy for several hours. Feel clumsy and have poor balance for several hours. Feel forgetful about what happened after the procedure. Have poor judgment for several hours. Feel nauseous or vomit. Have a sore throat if you had a breathing tube during the procedure. Follow these instructions at home: For at least 24 hours after the procedure: Have a responsible adult stay with you. It is important to have someone help care for you until youare awake and alert. Rest as needed. Do not: ?Participate in activities in which you could fall or become injured. ?Drive. ?Use heavy machinery. ?Drink alcohol. ?Take sleeping pills or medicines that cause drowsiness. ?Make important decisions or sign legal documents. ?Take care of children on your own. Eating and drinking Follow the diet that is recommended by your health care provider. If you vomit, drink water, juice, or soup when you can drink without vomiting. Make sure you have little or no nausea before eating solid foods. General instructions Take jdoa-ydw-addvirj and prescription medicines only as told by your health care provider. If you have sleep apnea, surgery and certain medicines can increase your risk for breathing problems. Follow instructions from your health care provider about wearing your sleep device: ?Anytime you are sleeping, including during daytime naps. ?While taking prescription pain medicines, sleeping medicines, or medicines that make you drowsy. If you smoke, do not smoke without supervision. Keep all follow-up visits as told by your health care provider. This is important. Contact a health care provider if: You keep feeling nauseous or you keep vomiting. You feel light-headed. You develop a rash. You have a fever. Get help right away if: You have trouble breathing. Summary For several hours after your procedure, you may feel sleepy and have poor judgment. Have a responsible adult stay with you for at least 24 hours or until you are awake and alert. This information is not intended to replace advice given to you by your health care provider. Make sure you discuss any questions you have with your health care provider. Document Released: 06/11/2016 Document Revised: 05/20/2018 Document Reviewed: 06/11/2016 [employer] Patient Education 2020 [employer]. Follow Up Care 11/07/2022 11:20:24 With:RODRIGO RIVERA Address: [address] [place] [address], [place] [address] [facility] [place] [address]- Business (1) When:11/30/2022 09:00:00 [facility] 09-22-2023 Summary of episode note Discharge Instructions Thank you for allowing [facility] to assist you with your healthcare needs. The following is importantdischarge information regarding your hospital visit. Your Care Team BERENICE BOWLING DO What to do next Scheduled Follow-Up Appointments Appointment Type When With Where Contact InformationPC OV 11/30/2022 08:30 AM EDT BERENICE BOWLING DO [facility] [address] [phone] Follow Up Appointments Follow Up with RODRIGO RIVERA When 11/30/2022 09:00 AM EDT Where: [address] [facility] [place] [address]- [facility] (1) The Following Activity and Diet Have Been Ordered for You Discharge Activity - Ordered -- Other, Follow the post-operative/post-procedure activity instructions provided by your physician's office., 11/24/22 13:09:00 EDT No qualifying data available. The Following Equipment Has Been Ordered for You Discharge Home Equipment Discharge Wound Care - Ordered -- Follow the post-operative/post-procedure wound care instructions provided by your physician's office., 11/24/22 13:09:00 EDT Allergies NSAIDS (due to bypass surgery) Vicodin (Rash) codeine (Rash) sulfa drugs (Rash) traMADol (Unknown) Medications Please ask your primary doctor or pharmacist before taking any other medication not listed, including over the counter drugs, herbal medications, vitamins and or supplements as they may interact withyour home medications. What How Much When Why Instructions Last Dose Unchanged ALPRAZolam (ALPRAZolam 0.25 mg oral tablet) 1 tab(s) by mouth Three (3) times a day as needed for for anxiety Anxiety Duration: 30 Days Unchanged cetirizine (cetirizine 10 mg oral tablet) 1 tab(s) by mouth Once a day Unchanged diclofenac topical (Voltaren 1% topical gel) 1 application Topical Four (4) times a day Unchanged FLUoxetine (FLUoxetine 40 mg oral capsule) 2 cap by mouth Once a day Unchanged fluticasone nasal (Flonase 50 mcg/ inh nasal spray) 2 spray(s) each nostril Once a day (in the morning) Unchanged gabapentin (gabapentin 100 mg oral capsule) 1 cap by mouth Three (3) times a day Peripheral neuropathy Duration: 90 Days Unchanged hydroCHLOROthiazide (hydroCHLOROthiazide 25 mg oral tablet) 1 tab(s) by mouth Once a day Unchanged lisinopril (lisinopril 20 mg oral tablet) 1 tab(s) by mouth Once a day Unchanged metFORMIN (metFORMIN 1000 mg oral tablet (IR)) 1 tab(s) by mouth Two (2) times a day Unchanged omeprazole (omeprazole 20 mg oral delayed release capsule) 1 cap by mouth Once a day Unchanged promethazine (promethazine 25 mg oral tablet) 1 tab(s) by mouth Every 4 hours as needed for as needed for nausea/vomiting Please take this list to your next doctor s visit. Bring all medications you take, including over the counter medications, herbals and other supplements with you to your doctor s visit. Patients and families are reminded to discard old lists and to update any records with all medication providers or retail pharmacies. Education Materials [facility] SAME DAY SURGERY DISCHARGE INSTRUCTIONS PLEASE FOLLOW THE INSTRUCTIONS BELOW MARKED WITH AN X: __X_Regular Diet: Start with clear liquids, then soup and crackers. Gradually add other foods unless otherwise instructed by your surgeon __X_Drink extra fluids ACTIVTY: __X_Since you have had anesthetic, it would be advisable not to drive, drink alcohol, or make majordecisions over the next 24 hours. You may require more rest tonight and tomorrow __X_Do not drive vehicle while taking narcotics and as directed by your Surgeon ____Restrict activity as follows: ____Do not have sexual intercourse. Nothing in the vagina-No tampons or Douching ____No heavy lifting, pushing, or straining ____Elevate operative limb __X__Ice as directed __X_Follow all written and verbal instructions given to you by your Doctor ____Other: DRESSING: _X___Keep operative area clean and dry _X___Check the operative area for signs of bleeding. Apply pressure to the bleeding site if necessary. WATCH FOR SIGNS OF INFECTION: (Usually appears 36-48 hours after surgery) Increased temperature (101 degrees Fahrenheit or higher) Redness or swelling Increased pain Foul odor or drainage If you have any questions, please call your doctor at the number listed on your follow-up instructions. Monitored Anesthesia Care, Care After These instructions provide you with information about caring for yourself after your procedure. Your health care provider may also give you more specific instructions. Your treatment has been plannedaccording to current medical practices, but problems sometimes occur. Call your health care provider if you have any problems or questions after your procedure. What can I expect after the procedure? After your procedure, you may: Feel sleepy for several hours. Feel clumsy and have poor balance for several hours. Feel forgetful about what happened after the procedure. Have poor judgment for several hours. Feel nauseous or vomit. Have a sore throat if you had a breathing tube during the procedure. Follow these instructions at home: For at least 24 hours after the procedure: Have a responsible adult stay with you. It is important to have someone help care for you until youare awake and alert. Rest as needed. Do not: ? Participate in activities in which you could fall or become injured. ? Drive. ? Use heavy machinery. ? Drink alcohol. ? Take sleeping pills or medicines that cause drowsiness. ? Make important decisions or sign legal documents. ? Take care of children on your own. Eating and drinking Follow the diet that is recommended by your health care provider. If you vomit, drink water, juice, or soup when you can drink without vomiting. Make sure you have little or no nausea before eating solid foods. General instructions Take hsfc-iqn-adbcadh and prescription medicines only as told by your health care provider. If you have sleep apnea, surgery and certain medicines can increase your risk for breathing problems. Follow instructions from your health care provider about wearing your sleep device: ? Anytime you are sleeping, including during daytime naps. ? While taking prescription pain medicines, sleeping medicines, or medicines that make you drowsy. If you smoke, do not smoke without supervision. Keep all follow-up visits as told by your health care provider. This is important. Contact a health care provider if: You keep feeling nauseous or you keep vomiting. You feel light-headed. You develop a rash. You have a fever. Get help right away if: You have trouble breathing. Summary For several hours after your procedure, you may feel sleepy and have poor judgment. Have a responsible adult stay with you for at least 24 hours or until you are awake and alert. This information is not intended to replace advice given to you by your health care provider. Make sure you discuss any questions you have with your health care provider. Document Released: 06/11/2016 Document Revised: 05/20/2018 Document Reviewed: 06/11/2016 [employer] Patient Education 2020 [employer] Additional Information VACCINATE! IT SAVES LIVES! Members of the community who have not yet received the COVID-19 vaccine and would like to receive it can visit one of [facility] vaccine clinics. There are many vaccine clinic locations within the [facility]. For locations and available times, please visit [email or web address].gov/. It is important to note that some COVID mobile vaccine clinics are held outdoors and may be canceled in rainy or stormy conditions. To learn more about pediatric vaccinations (ages 5-11), we invite you to visit the [facility] webpage. https://www.[facility].org/pages/7641-Zrfvd-Faxiqmxqfql-Yalrmdyjzv-Mbzsp-Log stions.htmlTo learn more about the COVID-19 vaccine, we invite you to visit the CDC website for a list of frequently asked questions.https://www.cdc.gov/coronavirus/2019-ncov/vaccines/faq.html [facility] Patient Portal Access Instructions: Stay connected with your healthcare team and access your personal medical information anytime with the [facility] Patient Portal. Please follow the directions below to create your amSTATZ account: 1.Access the email account you provided upon registration to the hospital/physician office.2.Look for an invitation email from [facility].3.Open the email and access the invitation link: AcceptInvitation to [facility].4.Fill in the required wilkinson to create your account. To access your account, visit [email or web address]. Click the blue button labeled Access Patient Portal and then log in with the username and password that you created in the steps above. You will be able to view your test results, lab results, a summary of your visits, upcoming appointments and more. There is also a convenient messaging option where you can send secure messages to your p rovider. In addition, you will have the ability to download any documents or summaries to your computer and/or send the information securely to a physician. Remember that your healthcare information is confidential, so carefully consider who you will allowto register on the [facility] Patient Portal for access to your information. You can also access the [facility] Patient Portal on the [facility] eric. Simply click on Patient Portal and then log into your account. If you would like to receive a full copy of your medical records, please contact the [facility] Medical Records Department by calling [phone], Sunday through Sunday between 8 a.m. and 4:30 p.m. HOW TO SAFELY DISPOSE OF PRESCRIPTION MEDICATIONS Please use one of the following methods to safely dispose of your unused medications. 1.Use a drug disposal kit: the drug disposal pouch allows you to safely discard your old and unuseddrugs. Ask your nurse to give you one when you are discharged.2.Visit a local take-back location: Many local pharmacies and police departments have programs that collect old and unwanted prescriptiondrugs. Call your local pharmacy or go to http://[email or web address]/0L4Ik0s to find one close to you.3.Make use of household items: Use cat litter or old coffee grounds to dispose medications if other options arenot available. Mix your drugs with these household products, seal them in an airtight container andthrow it into the garbage. Call [facility]: [phone] to be sure your drugs can be disposed of in this way. Some medicines may require a different approach.4.Never flush your medications down the toilet. IF YOU HAVE BEEN PRESCRIBED AN OPIOID FOR PAIN If you have been prescribed an opioid (such as hydrocodone, oxycodone or morphine), it is critical to understand the possible side effects and risks of opioid pain medications. Even when taken as directed, opioids can have several side effects including: Tolerance, meaning you might need to take more of a medication for the same pain relief. Nausea, vomiting and/or constipation. Sleepiness, dizziness, dry mouth, confusion, depression or itching. Physical dependence, meaning you have withdrawal symptoms when a medication is stopped, can develop within a few days. KNOW YOUR RESPONSIBILITIES It is important to know exactly how much and how often to take the opioid pain medications you are prescribed. Never take opioids in higher amounts or more often than prescribed. Do not combine opioids with alcohol or other drugs that cause drowsiness, such as benzodiazepines, also known as benzos, including diazepam and alprazolam, muscle relaxants or sleep aids. Never sell or share prescription opioids. This is illegal. Store opioids in a secure place and out of reach of others (including children, family, friends and visitors). The last page of this document has been signed and retained as a CHART COPY. Signatures Patient Education Materials 1- SDS General Discharge Guidelines (11/17/2022)(CUSTOM) Monitored Anesthesia Care, Care After Medication Leaflets My discharge plan and instructions have been reviewed and explained to me and I,BELLE SMITH understand my current condition and have read and understand these discharge instructions. I have received a written copy of the plan/instructions. If I have questions, I am aware that I should contact my doctor. 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 Family's history: negative. Health Status Allergies: Allergic Reactions (Selected) Severity Not Documented Codeine- Rash. NSAIDS- Due to bypass surgery. Sulfa drugs- Rash. TraMADol- Unknown. Vicodin- Rash., Allergies (5) ActiveReaction codeineRash NSAIDSdue to bypass surgery sulfa drugsRash traMADolUnknown VicodinRash Current medications: (Selected) Inpatient Medications Ordered LR 1,000 mL: 125 mL/hr, Intravenous cefOXitin: 1 gram(s), 200 mL/hr, IV Piggyback, PREOP pharm Prescriptions Prescribed ALPRAZolam 0.25 mg oral tablet: 0.25 mg, 1 tab(s), Oral, TID, for 30 day(s), PRN: for anxiety, 90 tab(s), 2 Refill(s) FLUoxetine 40 mg oral capsule: 80 mg, 2 cap(s), Oral, qDay, 180 cap(s), 1 Refill(s) Flonase 50 mcg/inh nasal spray: 2 spray(s), Nostril, each, qAM, 1 EA, 3 Refill(s) Voltaren 1% topical gel: 1 eric, Topical, QID, 100 gram(s), 0 Refill(s) cetirizine 10 mg oral tablet: 10 mg, 1 tab(s), Oral, qDay, 90 tab(s), 3 Refill(s) gabapentin 100 mg oral capsule: 100 mg, 1 cap(s), Oral, TID, for 90 day(s), 270 cap(s), 1 Refill(s) hydroCHLOROthiazide 25 mg oral tablet: 25 mg, 1 tab(s), Oral, qDay, 90 tab(s), 1 Refill(s) lisinopril 20 mg oral tablet: 20 mg, 1 tab(s), Oral, qDay, 90 tab(s), 1 Refill(s) metFORMIN 1000 mg oral tablet (IR): 1,000 mg, 1 tab(s), Oral, BID, 180 tab(s), 1 Refill(s) omeprazole 20 mg oral delayed release capsule: 20 mg, 1 cap(s), Oral, qDay, 90 cap(s), 1 Refill(s) promethazine 25 mg oral tablet: 25 mg, 1 tab(s), Oral, q4h, PRN: as needed for nausea/vomiting, 60 tab(s), 0 Refill(s), Medications (2) Active Scheduled: (1) ceFOXitin 1 gram(s), IV Piggyback, PREOP pharm Continuous: (1) Lactated Ringers 1,000 mL 1,000 mL, Intravenous, 125 mL/hr PRN: (0) Problem list: Medical Abscess of thigh / SNOMED CT 8845550 / Confirmed Allergic rhinitis / SNOMED CT 895776569 / Confirmed BMI 40.0-44.9, adult / SNOMED CT 8512561796 / Confirmed Chronic back pain / SNOMED CT 564194521 / Confirmed Chronic middle ear effusion / SNOMED CT 665164719 / Confirmed Hot flashes / SNOMED CT 071756352 / Confirmed GERD (gastroesophageal reflux disease) / SNOMED CT 170178378 / Confirmed ISABELLA (generalized anxiety disorder) / SNOMED CT 49677370 / Confirmed Hidradenitis suppurativa / SNOMED CT 92310025 / Confirmed History of gastric bypass / SNOMED CT 9164484805 / Confirmed Hypertension / SNOMED CT 40891687 / Confirmed Hyponatremia / SNOMED CT 157188722 / Confirmed IBS (irritable bowel syndrome) / SNOMED CT [id number] / Confirmed Kidney stones / SNOMED CT [id number] / Confirmed Morbid obesity / SNOMED CT 137195514 / Confirmed EMANUEL - Obstructive sleep apnea / SNOMED CT 9976444643 / Confirmed Peripheral neuropathy / SNOMED CT 809411998 / Confirmed Sleep apnea / SNOMED CT 909018675 / Confirmed Statin intolerance / SNOMED CT 4092833474 / Confirmed Absence of cervix / SNOMED CT 884165793 / Confirmed Vitamin D deficiency / SNOMED CT 00675262 / Confirmed, Active Problems (25) Abscess of thigh Absence of cervix Allergic rhinitis BMI 40.0-44.9, adult Chronic back pain Chronic middle ear effusion Diabetes ISABELLA (generalized anxiety disorder) GERD (gastroesophageal reflux disease) Hidradenitis suppurativa History of gastric bypass Hot flashes Hypertension Hyponatremia IBS (irritable bowel syndrome) Kidney stones Morbid obesity Neuropathy EMANUEL - Obstructive sleep apnea Peripheral neuropathy Rheumatoid arthritis Sleep apnea Statin intolerance TMJ (temporomandibular joint disorder) Vitamin D deficiency Histories Past Medical History: Active Kidney stones ([id number]) Hypertension (44815466) Chronic back pain (439912415) IBS (irritable bowel syndrome) ([id number]) Family History: Gout Mother (Deya Smith, ) Father (Peter, ) Diabetes mellitus Brother (Galo Smith) Hypertension Father (Peter, ) Heart disease Father (Peter, ) Brother (Galo Smith) Diabetes mellitus type 1 Mother (Deya Smith, ) Stroke Grandparent (pat grandmother) Cirrhosis of liver Mother (Deya Smith, ) Kidney disease Mother (Deya Smith, ) Congestive heart failure Father (Peter, ) Grandparent (pat grandmother) Grandparent (mat grandfather) Grandparent (mat. grandmother) Grandparent (pat grandfather) HTN - Hypertension Brother (Galo Smith) Diabetes Father (Peter, ) Grandparent (mat grandfather) Grandparent (mat. grandmother) Procedure history: Excision ([id number]) on 05/06/2020 at 49 Years. Comments: 05/18/2020 15:50 EDT - Macy Cruz LPN Focal Hidradenitis, Right Perineal Area Bariatric operative procedure ([id number]) on 07/28/2018 at 47 Years. Hernia (754675635) on 07/28/2018 at 47 Years. Comments: 11/21/2018 8:25 EDT - Jane Earl LPN hiatal Esophagogastroduodenoscopy (993462117) on 12/19/2017 at 47 Years. Lithotripsy (937462536) in 2010 at 40 Years. Hysterectomy (610893326). Cholecystectomy (72609221). foot (2552034736). Comments: 04/11/2016 7:42 LENNY PIMENTEL left Tubal ligation (170906740). Tonsillectomy (479174293). Umbilical hernia (6137207461). 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 Physical Examination Vital Signs 11/24/2022 10:25 EDT Temperature Temporal Artery 36.8 DegC Apical Heart Rate 64 bpm Respiratory Rate 14 br/min Systolic Blood Pressure Non-Invasive 103 mmHg Diastolic Blood Pressure Non-Invasive 72 mmHg Vital Signs(last 24 hrs) Last Charted Resp Rate 14 br/min (NOV 24 10:25) KMN201 mmHg (NOV 24 10:25) DBP72 mmHg (NOV 24 10:25) Measurements from flowsheet : Measurements 11/24/2022 10:25 EDT Height 157.4 cm Height in inches 62 inch(es) Admission Weight 95.4 kg Weight Lbs 209.9 lb [place] Body Weight 50.03 kg Admission Body Mass Index 38.51 m2 Pain assessment: Pain Assessment 11/24/2022 10:25 EDT Primary Pain Intensity 0 Pain Scale Type 0-10 Pain scale . General: Alert and oriented. Airway: Normal temporomandibular joint mobility. Mallampati classification: II (soft palate, fauces, uvula visible). Dentition Evaluation: Missing teeth, Chipped teeth. Respiratory: Lungs are clear to auscultation, Respirations are non-labored. Cardiovascular: Normal rate, Regular rhythm. Neurologic: Alert, Oriented. Review / Management Results review: No qualifying data available , Lab results 11/24/2022 10:34 EDT Antecubital Left 11/24/2022 20 gauge Peripheral IV Activity: Insert new site Peripheral IV Dressing Condition: Clean, Dry, Intact Peripheral IV Dressing Activity: Applied, Transparent dressing Peripheral IV Line Status/Patency: Flushes easily, Continuous infusion Peripheral IV Site Condition: No complications Peripheral IV Equipment: Extension set, PRN Adaptor 11/24/2022 10:25 EDT Height 157.4 cm Height in inches 62 inch(es) Admission Weight 95.4 kg Weight Lbs 209.9 lb [place] Body Weight 50.03 kg Admission Body Mass Index 38.51 m2 Temperature Temporal Artery 36.8 DegC Apical Heart Rate 64 bpm Respiratory Rate 14 br/min Systolic Blood Pressure Non-Invasive 103 mmHg Diastolic Blood Pressure Non-Invasive 72 mmHg Primary Pain Intensity 0 Pain Scale Type 0-10 Pain scale Heart Rhythm Regular Respirations Unlabored Respiratory Pattern Regular All Lobes Breath Sounds Clear Oxygen Therapy Room air Oxygen Saturation 96 % Abdomen Description Non-distended Abdomen Palpation Non-Tender Bowel Sounds All Quadrants Present Urinary Elimination Voiding, no difficulties Skin Temperature Warm Skin Description Enemy Swim, Dry Skin Integrity Intact IV Present Present Neurological Symptoms Patient denies Extremity Movement Equal Characteristics of Speech Clear Level of Consciousness Alert Strength All Extremities Strong Tone All Extremities Normal Sensation All Extremities Intact Affect/Behavior Appropriate Orientation Oriented x 4 Allergies Yes Anesthesia Extension Set Applied Yes Blood Bank Business Manager On Yes Consent Form Signed Yes Patient Dressed In Hospital gown CHG Preoperative Wash/Wipe Night before procedure, Day of procedure, Site specific wipe Preop Nasal Swab Povidone-Iodine CHG Skin Prep Completed for Eligible Surgery History & Physical Update On Chart Yes History & Physical On Chart Yes Obstructive Sleep Apnea Assess Completed Yes Belongings At Bedside Cell phone, Glasses, Pants, Shirt, Shoes, Socks, Undergarments Activity Status ADL Awake NPO Status Maintained Standard Safety ID band on, Allergy Band on, Call device within reach, Bed in low position, Wheels locked, Upper/Half-Length side-rails up, Safety level maintained, Non-Slip footwear Allergy Band on and Verified Yes Patient ID Band on and Verified Yes Implants Verified Yes Pacemaker/AICD Verified Yes Site Verified by Patient/Family Yes Anesthesia Consent Signed Yes Blood Consent Signed Yes Last Fluid Intake 11/23/2022 22:00 Last Food Intake 11/23/2022 20:00 Last Void 11/24/2022 10:26 11/24/2022 10:15 EDT SN - Preop - CTm Pt in SDS Room 11/24/2022 10:09 . Assessment and Plan [place] Society of Anesthesiologists (ASA) physical status classification: Class III. Anesthetic Preoperative Plan Anesthetic technique: MAC. Postoperative pain management: Per surgeon. Risks discussed: nausea, vomiting, hypotension, allergic reaction, serious complications. Informed consent: signed by patient. Digitally Signed by KRISTEL RIDLEY on 11/24/2022 11:06 AM [facility]04-11-2023 History of Present illness Narrative * Irma Barnett DO - 06/13/2022 8:40 AM EDT Belle Smith is a 51 year old FEMALE who presents with Cough (SINUS PRESSURE BOTH X 1 DAY) HPI PAST MEDICAL HISTORY Diagnosis Date Anxiety Back pain, lumbosacral DJD Cervical back pain with evidence of disc disease 2 BULGING DISC Diabetic acidosis, type II (HCC) GERD (gastroesophageal reflux disease) Hypertension Incarcerated hernia Kidney stones ACTIVE PROBLEM LIST Chronic Cholecystitis Incisional Hernia Skin Infection Ear Problem Emanuel (Obstructive Sleep Apnea) Morbid Obesity With Bmi of 40.0-44.9, Adult ([facility]) Current Outpatient Medications Medication Sig Dispense Refill albuterol HFA (PROVENTIL HFA, VENTOLIN HFA) 90 mcg/actuation inhaler Inhale as instructed. biotin 1 mg cap 5 mg. magnesium oxide 200 mg magnesium chew Take by mouth. Vitamin T35-Njnki Acid 0.5-1 mg tab Take by mouth. cholecalciferol, vitamin D3, 10 mcg (400 unit) cap Dose : 10,000 Int unit =, Oral, qDay, 0 Refill(s) cetirizine (ZYRTEC) 10 mg tablet cetirizine 10 mg tablet fluticasone (FLONASE) 50 mcg/actuation nasal spray fluticasone propionate 50 mcg/actuation nasal spray,suspension gabapentin (NEURONTIN) 100 mg capsule gabapentin 100 mg capsule ketotifen fumarate (ZADITOR) 0.025 % (0.035 %) ophthalmic solution ketotifen 0.025 % (0.035 %) eye drops LIDOCAINE PAIN RELIEF 4 % patch promethazine (PHENERGAN) 25 mg tablet 25 mg. FLUoxetine (PROZAC) 40 mg capsule 80 mg. lisinopril (ZESTRIL) 20 mg tablet lisinopril 20 mg tablet omeprazole (PRILOSEC) 20 mg capsule Take 1 capsule by mouth once daily. 90 capsule 4 ALPRAZolam (XANAX) 0.5 mg tablet Take 1 tablet by mouth at bedtime as needed. 30 tablet 0 dicyclomine 10 mg capsule Take 1 capsule by mouth every 6 hours. 120 capsule 0 hydrochlorothiazide 25 mg tablet Take 1 tablet by mouth once daily. 90 tablet 0 metFORMIN 1,000 mg tablet Take 1 tablet by mouth twice daily with meals. 180 tablet 4 Aniekupy-Praetx-JW-Thonzonium (CORTISPORIN-TC) otic suspension Use 3 Drops in the ears four times daily. 10 mL 0 Guar Gum 1 gram chew Take by mouth twice daily. 0 No current facility-administered medications for this visit. Social History Tobacco Use Smoking status: Former Packs/day: 0.50 Years: 22.00 Pack years: 11.00 Types: Cigarettes Vaping Use Vaping Use: Never used Substance Use Topics Alcohol use: Yes Comment: SOCIALLY Drug use: No Alcohol Use: Yes (SOCIALLY) Tobacco Use: 0.5 packs/day, for 22 years. Types: Cigarettes FAMILY HISTORY Problem Relation Age of Onset Diabetes Mother Hypertension Mother other (CHROHN [Other]) Mother other (CHF [Other]) Mother Coronary Artery Disease Brother TRIPLE BYPASS other (CHF [Other]) Father Diabetes Brother Review of Systems Constitutional: Positive for chills and fever. HENT: Positive for congestion, sinus pain and sore throat. Respiratory: Positive for cough and sputum production. Musculoskeletal: Positive for myalgias. All other systems reviewed and are negative. BP 110/70 Pulse 99 Temp 98.4 Resp 18 SpO2 97% Physical Exam Vitals and nursing note reviewed. Constitutional: Appearance: Normal appearance. HENT: Head: Normocephalic. Nose: Congestion and rhinorrhea present. Mouth/Throat: Pharynx: Posterior oropharyngeal erythema present. Cardiovascular: Rate and Rhythm: Normal rate and regular rhythm. Pulses: Normal pulses. Heart sounds: Normal heart sounds. Pulmonary: Effort: Pulmonary effort is normal. Breath sounds: Normal breath sounds. Abdominal: General: Bowel sounds are normal. Musculoskeletal: General: Normal range of motion. Cervical back: Normal range of motion. Skin: General: Skin is warm. Capillary Refill: Capillary refill takes less than 2 seconds. Neurological: Mental Status: She is alert. Mental status is at baseline. Psychiatric: Mood and Affect: Mood normal. ASSESSMENT/PLAN: 1. Bacterial sinusitis - ICD9: 473.9, 041.9, ICD10: J32.9, B96.89 (primary diagnosis) - Will begin treatment with Amoxicillin for 10 days - Supportive care with plenty of fluids, rest, and analgesia prn. 2. Pharyngitis, unspecified etiology - ICD9: 462, ICD10: J02.9 - suspect strep - Discussed supportive care treatment with fluids, rest and analgesia. Irma Barnett [facility] Note ORIGINAL EXAMINATION: THREE XRAY VIEWS OF THE RIGHT KNEE02/02/2022 8:34 am COMPARISON: None. HISTORY: ORDERING SYSTEM PROVIDED HISTORY: Reason for Exam: knee pain x weeks (has been in post op boot for foot sx) FINDINGS: No acute fracture or dislocation is identified. No joint effusion is seen. Mild spurring seen in the medial tibiofemoral patellofemoral compartments. There is no radiopaque foreign body. IMPRESSION: Mild degenerative changes. Interpreted by: Thaddeus Chavez MD Preliminary Report By: Thaddeus Chavez MD Electronically signed By Thaddeus Chavez MD Dictated Date: 02/02/2022 2:42:16 PM Prelim Date: 02/02/2022 2:46:52 PM Sign Date: 02/02/2022 2:46:52 PM Ordering Provider: [facility]12-01-2022 Note ORIGINAL EXAMINATION: THREE XRAY VIEWS OF THE RIGHT KNEE02/02/2022 8:34 am COMPARISON: None. HISTORY: ORDERING SYSTEM PROVIDED HISTORY: Reason for Exam: knee pain x weeks (has been in post op boot for foot sx) FINDINGS: No acute fracture or dislocation is identified. No joint effusion is seen. Mild spurring seen in the medial tibiofemoral patellofemoral compartments. There is no radiopaque foreign body. IMPRESSION: Mild degenerative changes. Interpreted by: Thaddeus Chavez MD Preliminary Report By: Thaddeus Chavez MD Electronically signed By Thaddeus Chavez MD Dictated Date: 02/02/2022 2:42:16 PM Prelim Date: 02/02/2022 2:46:52 PM Sign Date: 02/02/2022 2:46:52 PM Ordering Provider: [facility]10-14-2022 Evaluation + Plan noteExtracted from: Title:Clinical Document Author:RODRIGO RIVERA PM Date:12/16/21 [place] ADMISSION HISTORY AN D PHYSICIAL CHIEF COMPLAINT: HISTORY OF PRESENT ILLNESS: REVIEW OF SYSTEMS: ACTIVE PROBLEMS: (23) Absence of cervix (566657404) Allergic rhinitis (602446904) BMI 40.0-44.9, adult (3338187372) Chronic back pain (317177201) Chronic middle ear effusion (801044870) Diabetes mellitus (296191987) ISABELLA (generalized anxiety disorder) (57264282) GERD (gastroesophageal reflux disease) (691093999) Hidradenitis suppurativa (86449950) History of gastric bypass (0103324405) Hot flashes (728510941) Hypertension (98737902) Hyponatremia (880857005) IBS (irritable bowel syndrome) ([id number]) Kidney stones ([id number]) Morbid obesity (862485771) Neuropathy (8169381289) EMANUEL - Obstructive sleep apnea (6746982922) Peripheral neuropathy (529688423) Sleep apnea (543879995) Statin intolerance (3134535415) TMJ (temporomandibular joint disorder) (36070281) Vitamin D deficiency (46225958) MEDICATIONS: Active Inpt Meds: ceFAZolin Start: 12/17/21 6:00:00 EDT, Dose= 1 gram(s), IV Piggyback, PREOP pharm, Routine, Rate: 200 mL/hr, Infuse over: 30 minute(s), 100 mL, 12/17/21 6:00:00 EDT Active PRN Meds: HYDROmorphone (Dilaudid ( PACU )) Start: 12/16/21 8:32:00 EDT, Dose = 0.25 mg, = 0.25 mL, IV Push, q5min, PRN, Pain, scale 4-6, 8 dose(s), Stop: Limited # of times, 0, 12/16/21 8:32:00 EDT fentaNYL (fentaNYL ( PACU )) Start: 12/16/21 8:32:00 EDT, Dose = 50 mcg, = 1 mL, IV Push, q5min, PRN, Pain, breakthrough, 4 dose(s), Stop: Limited # of times, 12/16/21 8:32:00 EDT ondansetron (Zofran ( PACU )) Start: 12/16/21 8:32:00 EDT, Dose = 4 mg, = 2 mL, IV Push, AsDirected, PRN, Nausea/Vomiting, 1 dose(s), Stop: Limited # of times, 12/16/21 8:32:00 EDT One Time Meds: None Active IV Meds: Lactated Ringers Infusion 1,000 mL (LR 1,000 mL) Start: 12/16/21 7:28:00 EDT, Rate: 125 mL/hr, 12/16/21 7:28:00 EDT Lactated Ringers Infusion 1,000 mL (LR 1,000 mL) Start: 12/16/21 8:32:00 EDT, Rate: 20 mL/hr, 12/16/21 8:32:00 EDT ALLERGIES: (5) codeine NSAIDS sulfa drugs traMADol Vicodin FAMILY HISTORY: SOCIAL HISTORY: PHYSICAL EXAM: VITALS: EfxyleHhcoISInandDRXvQ7GGL3OwlkWs(kg) 12/16 07:4137.0135/41176791CE75/75109.3 24 Hr Tmax: 37.0 at 12/16 07:41 36 Hr Tmax: 37.0 at 12/16 07:41 Vital Signs are the last 5 in the past 48 hours. Weights display the last 5 within 7 days. Initial Wt: 12/16 102.3 kg 225 lb Current Wt: 12/16 102.3 kg 225 lb GENERAL: HEENT: CARDIOVASCULAR: RESPIRATORY: ABDOMEN: EXREMETIES: NEUROLOGICAL: PSYCHIATRIC: LABS: 36hr Labs 12/16 0741 Blood Glucose, [id number] Blood Glucose, [id number] Blood Glucose TSee Flowsheet DIAGNOSTICS: IMPRESSION: PLAN: History and Physical Update I have examined the patient; reviewed the H&P and there are no changes to the H&P unless noted below. Future Appointments Appointment Date:03/07/2022 07:00:00 AM Scheduled Provider:BERENICE BOWLING DO Location:[facility] Appointment Type: OV Follow Up Future Scheduled Tests Laboratory* Thyroid Stimulating Hormone 04/19/21 * Complete Blood Count 04/19/21 * Lipid Profile 04/19/21 * Complete Metabolic Panel 04/19/21 [facility] 10-14-2022 Hospital Discharge instructions Patient Education 12/16/2021 10:08:30 Nausea and Vomiting, Adult Nausea and Vomiting, Adult Nausea is the feeling that you have an upset stomach or that you are about to vomit. Vomiting is when stomach contents are thrown up and out of the mouth as a result of nausea. Vomiting can make you feel weak and cause you to become dehydrated. Dehydration can make you feel tired and thirsty, cause you to have a dry mouth, and decrease how often you urinate. Older adults and people with other diseases or a weak disease-fighting system (immune system) are at higher risk for dehydration. It is important to treat your nausea and vomiting as told by your health care provider. Follow these instructions at home: Watch your symptoms for any changes. Tell your health care provider about them. Follow these instructions to care for yourself at home. Eating and drinking Take an oral rehydration solution (ORS). This is a drink that is sold at pharmacies and retail stores. Drink clear fluids slowly and in small amounts as you are able. Clear fluids include water, ice chips, low-calorie sports drinks, and fruit juice that has water added (diluted fruit juice). Eat bland, meno-hg-mxfxit foods in small amounts as you are able. These foods include bananas, applesauce, rice, lean meats, toast, and crackers. Avoid fluids that contain a lot of sugar or caffeine, such as energy drinks, sports drinks, and soda. Avoid alcohol. Avoid spicy or fatty foods. General instructions Take elzf-pib-hhvsjqd and prescription medicines only as told by your health care provider. Drink enough fluid to keep your urine pale yellow. Wash your hands often using soap and water. If soap and water are not available, use hand beader tender. Make sure that all people in your household wash their hands well and often. Rest at home while you recover. Watch your condition for any changes. Breathe slowly and deeply when you feel nauseated. Keep all follow-up visits as told by your health care provider. This is important. Contact a health care provider if: Your symptoms get worse. You have new symptoms. You have a fever. You cannot drink fluids without vomiting. Your nausea does not go away after 2 days. You feel light-headed or dizzy. You have a headache. You have muscle cramps. You have a rash. You have pain while urinating. Get help right away if: You have pain in your chest, neck, arm, or jaw. You feel extremely weak or you faint. You have persistent vomiting. You have vomit that is bright red or looks like black coffee grounds. You have bloody or black stools or stools that look like tar. You have a severe headache, a stiff neck, or both. You have severe pain, cramping, or bloating in your abdomen. You have difficulty breathing, or you are breathing very quickly. Your heart is beating very quickly. Your skin feels cold and clammy. You feel confused. You have signs of dehydration, such as: ?Dark urine, very little urine, or no urine. ?Cracked lips. ?Dry mouth. ?Sunken eyes. ?Sleepiness. ?Weakness. These symptoms may represent a serious problem that is an emergency. Do not wait to see if the symptoms will go away. Get medical help right away. Call your local emergency services (911 in the [place] Do not drive yourself to the hospital. Summary Nausea is the feeling that you have an upset stomach or that you are about to vomit. As nausea getsworse, it can lead to vomiting. Vomiting can make you feel weak and cause you to become dehydrated. Follow instructions from your health care provider about eating and drinking to prevent dehydration. Take nmlh-wzo-nsgfhvl and prescription medicines only as told by your health care provider. Contact your health care provider if your symptoms get worse, or you have new symptoms. Keep all follow-up visits as told by your health care provider. This is important. This information is not intended to replace advice given to you by your health care provider. Make sure you discuss any questions you have with your health care provider. Document Released: 02/19/2006 Document Revised: 06/13/2019 Document Reviewed: 07/30/2018 [employer] Patient Education 2020 [employer]. 12/16/2021 10:07:52 Monitored Anesthesia Care, Care After Monitored Anesthesia Care, Care After These instructions provide you with information about caring for yourself after your procedure. Your health care provider may also give you more specific instructions. Your treatment has been plannedaccording to current medical practices, but problems sometimes occur. Call your health care provider if you have any problems or questions after your procedure. What can I expect after the procedure? After your procedure, you may: Feel sleepy for several hours. Feel clumsy and have poor balance for several hours. Feel forgetful about what happened after the procedure. Have poor judgment for several hours. Feel nauseous or vomit. Have a sore throat if you had a breathing tube during the procedure. Follow these instructions at home: For at least 24 hours after the procedure: Have a responsible adult stay with you. It is important to have someone help care for you until youare awake and alert. Rest as needed. Do not: ?Participate in activities in which you could fall or become injured. ?Drive. ?Use heavy machinery. ?Drink alcohol. ?Take sleeping pills or medicines that cause drowsiness. ?Make important decisions or sign legal documents. ?Take care of children on your own. Eating and drinking Follow the diet that is recommended by your health care provider. If you vomit, drink water, juice, or soup when you can drink without vomiting. Make sure you have little or no nausea before eating solid foods. General instructions Take zwhj-iyh-zzssumh and prescription medicines only as told by your health care provider. If you have sleep apnea, surgery and certain medicines can increase your risk for breathing problems. Follow instructions from your health care provider about wearing your sleep device: ?Anytime you are sleeping, including during daytime naps. ?While taking prescription pain medicines, sleeping medicines, or medicines that make you drowsy. If you smoke, do not smoke without supervision. Keep all follow-up visits as told by your health care provider. This is important. Contact a health care provider if: You keep feeling nauseous or you keep vomiting. You feel light-headed. You develop a rash. You have a fever. Get help right away if: You have trouble breathing. Summary For several hours after your procedure, you may feel sleepy and have poor judgment. Have a responsible adult stay with you for at least 24 hours or until you are awake and alert. This information is not intended to replace advice given to you by your health care provider. Make sure you discuss any questions you have with your health care provider. Document Released: 06/11/2016 Document Revised: 05/20/2018 Document Reviewed: 06/11/2016 [employer] Patient Education 2020 [employer] Follow Up Care 11/28/2021 10:15:12 With:RODRIGO RIVERA Address: [address] [facility] [place] [facility] [place] [address]- Business (1) When:12/22/2021 10:00:00 [facility] 10-14-2022 Summary of episode note Discharge Instructions Thank you for allowing [facility] to assist you with your healthcare needs. The following is importantdischarge information regarding your hospital visit. Your Care Team BERENICE BOWLING DO DR. RIVERA What to do next Scheduled Follow-Up Appointments Appointment Type When With Where Contact InformationPC OV Follow Up 03/07/2022 07:00 AM BERENICE RUIZ DO [facility] [place] [address] [place] [address] Follow Up Appointments Follow Up with RODRIGO RIVERA When 12/22/2021 10:00 AM EDT Where: [address], [address] [facility] [place] [address]- [facility] (1) The Following Activity and Diet Have Been Ordered for You Discharge Activity - Ordered -- Other, Follow the post-operative/post-procedure activity instructions provided by your physician's office., 12/16/21 9:20:00 EDT No qualifying data available. The Following Equipment Has Been Ordered for You Discharge Home Equipment Discharge Wound Care - Ordered -- Follow the post-operative/post-procedure wound care instructions provided by your physician's office., 12/16/21 9:20:00 EDT Allergies NSAIDS (due to bypass surgery) Vicodin (Rash) codeine (Rash) sulfa drugs (Rash) traMADol (Unknown) Medications Please ask your primary doctor or pharmacist before taking any other medication not listed, including over the counter drugs, herbal medications, vitamins and or supplements as they may interact withyour home medications. What How Much When Why Instructions Last Dose Unchanged ALPRAZolam (ALPRAZolam 0.25 mg oral tablet) 1 tab(s) by mouth Three (3) times a day as needed for for anxiety Anxiety Duration: 30 Days Unchanged biotin 5 Milligram by mouth Once a day Unchanged cetirizine (cetirizine 10 mg oral tablet) 1 tab(s) by mouth Once a day Unchanged cholecalciferol (Vitamin D3) 10,000 International unit by mouth Once a day Unchanged cyanocobalamin (Vitamin B12) 250 Microgram by mouth Every week Unchanged FLUoxetine (FLUoxetine 40 mg oral capsule) 2 cap by mouth Once a day Unchanged fluticasone nasal (Flonase 50 mcg/ inh nasal spray) 2 spray(s) each nostril Once a day (in the morning) Unchanged gabapentin (gabapentin 100 mg oral capsule) 1 cap by mouth Three (3) times a day Peripheral neuropathy Duration: 90 Days Unchanged hydroCHLOROthiazide (hydroCHLOROthiazide 25 mg oral tablet) 1 tab(s) by mouth Once a day Unchanged lisinopril (lisinopril 20 mg oral tablet) 1 tab(s) by mouth Once a day Unchanged magnesium oxide (Mineral Magnesium 250mg tablet) 1 tab(s) by mouth Once a day Unchanged metFORMIN (metFORMIN 1000 mg oral tablet (IR)) 1 tab(s) by mouth Two (2) times a day Unchanged multivitamin (Multivitamin) 1 tab(s) by mouth Every day Unchanged omeprazole (omeprazole 20 mg oral delayed release capsule) 1 cap by mouth Once a day Unchanged promethazine (promethazine 25 mg oral tablet) 1 tab(s) by mouth Every 4 hours as needed for as needed for nausea/vomiting Unchanged thiamine (Vitamin B1 250 mg oral tablet) 1 tab(s) by mouth Every week Please take this list to your next doctor s visit. Bring all medications you take, including over the counter medications, herbals and other supplements with you to your doctor s visit. Patients and families are reminded to discard old lists and to update any records with all medication providers or retail pharmacies. Education Materials Nausea and Vomiting, Adult Nausea is the feeling that you have an upset stomach or that you are about to vomit. Vomiting is when stomach contents are thrown up and out of the mouth as a result of nausea. Vomiting can make you feel weak and cause you to become dehydrated. Dehydration can make you feel tired and thirsty, cause you to have a dry mouth, and decrease how often you urinate. Older adults and people with other diseases or a weak disease-fighting system (immune system) are at higher risk for dehydration. It is important to treat your nausea and vomiting as told by your health care provider. Follow these instructions at home: Watch your symptoms for any changes. Tell your health care provider about them. Follow these instructions to care for yourself at home. Eating and drinking Take an oral rehydration solution (ORS). This is a drink that is sold at pharmacies and retail stores. Drink clear fluids slowly and in small amounts as you are able. Clear fluids include water, ice chips, low-calorie sports drinks, and fruit juice that has water added (diluted fruit juice). Eat bland, iwdg-bl-mmqnnd foods in small amounts as you are able. These foods include bananas, applesauce, rice, lean meats, toast, and crackers. Avoid fluids that contain a lot of sugar or caffeine, such as energy drinks, sports drinks, and soda. Avoid alcohol. Avoid spicy or fatty foods. General instructions Take lhci-mkk-qnkcblo and prescription medicines only as told by your health care provider. Drink enough fluid to keep your urine pale yellow. Wash your hands often using soap and water. If soap and water are not available, use hand beader tender. Make sure that all people in your household wash their hands well and often. Rest at home while you recover. Watch your condition for any changes. Breathe slowly and deeply when you feel nauseated. Keep all follow-up visits as told by your health care provider. This is important. Contact a health care provider if: Your symptoms get worse. You have new symptoms. You have a fever. You cannot drink fluids without vomiting. Your nausea does not go away after 2 days. You feel light-headed or dizzy. You have a headache. You have muscle cramps. You have a rash. You have pain while urinating. Get help right away if: You have pain in your chest, neck, arm, or jaw. You feel extremely weak or you faint. You have persistent vomiting. You have vomit that is bright red or looks like black coffee grounds. You have bloody or black stools or stools that look like tar. You have a severe headache, a stiff neck, or both. You have severe pain, cramping, or bloating in your abdomen. You have difficulty breathing, or you are breathing very quickly. Your heart is beating very quickly. Your skin feels cold and clammy. You feel confused. You have signs of dehydration, such as: ? Dark urine, very little urine, or no urine. ? Cracked lips. ? Dry mouth. ? Sunken eyes. ? Sleepiness. ? Weakness. These symptoms may represent a serious problem that is an emergency. Do not wait to see if the symptoms will go away. Get medical help right away. Call your local emergency services (911 in the [place] Do not drive yourself to the hospital. Summary Nausea is the feeling that you have an upset stomach or that you are about to vomit. As nausea getsworse, it can lead to vomiting. Vomiting can make you feel weak and cause you to become dehydrated. Follow instructions from your health care provider about eating and drinking to prevent dehydration. Take bkes-nxy-ypuutpm and prescription medicines only as told by your health care provider. Contact your health care provider if your symptoms get worse, or you have new symptoms. Keep all follow-up visits as told by your health care provider. This is important. This information is not intended to replace advice given to you by your health care provider. Make sure you discuss any questions you have with your health care provider. Document Released: 02/19/2006 Document Revised: 06/13/2019 Document Reviewed: 07/30/2018 [employer] Patient Education 2020 [employer]. Monitored Anesthesia Care, Care After These instructions provide you with information about caring for yourself after your procedure. Your health care provider may also give you more specific instructions. Your treatment has been plannedaccording to current medical practices, but problems sometimes occur. Call your health care provider if you have any problems or questions after your procedure. What can I expect after the procedure? After your procedure, you may: Feel sleepy for several hours. Feel clumsy and have poor balance for several hours. Feel forgetful about what happened after the procedure. Have poor judgment for several hours. Feel nauseous or vomit. Have a sore throat if you had a breathing tube during the procedure. Follow these instructions at home: For at least 24 hours after the procedure: Have a responsible adult stay with you. It is important to have someone help care for you until youare awake and alert. Rest as needed. Do not: ? Participate in activities in which you could fall or become injured. ? Drive. ? Use heavy machinery. ? Drink alcohol. ? Take sleeping pills or medicines that cause drowsiness. ? Make important decisions or sign legal documents. ? Take care of children on your own. Eating and drinking Follow the diet that is recommended by your health care provider. If you vomit, drink water, juice, or soup when you can drink without vomiting. Make sure you have little or no nausea before eating solid foods. General instructions Take illx-aha-wltiniw and prescription medicines only as told by your health care provider. If you have sleep apnea, surgery and certain medicines can increase your risk for breathing problems. Follow instructions from your health care provider about wearing your sleep device: ? Anytime you are sleeping, including during daytime naps. ? While taking prescription pain medicines, sleeping medicines, or medicines that make you drowsy. If you smoke, do not smoke without supervision. Keep all follow-up visits as told by your health care provider. This is important. Contact a health care provider if: You keep feeling nauseous or you keep vomiting. You feel light-headed. You develop a rash. You have a fever. Get help right away if: You have trouble breathing. Summary For several hours after your procedure, you may feel sleepy and have poor judgment. Have a responsible adult stay with you for at least 24 hours or until you are awake and alert. This information is not intended to replace advice given to you by your health care provider. Make sure you discuss any questions you have with your health care provider. Document Released: 06/11/2016 Document Revised: 05/20/2018 Document Reviewed: 06/11/2016 [employer] Patient Education 2020 [employer]. Additional Information VACCINATE! IT SAVES LIVES! Members of the community who have not yet received the COVID-19 vaccine and would like to receive it can visit one of [facility] vaccine clinics. There are many vaccine clinic locations within the [facility]. For locations and available times, please visit [email or web address]/. It is important to note that some COVID mobile vaccine clinics are held outdoors and may be canceled in rainy or stormy conditions. To learn more about pediatric vaccinations (ages 5-11), we invite you to visit the [facility] webpage. [email or web address]/[email or web address]-Tyrxo-Zdp stions.htmlTo learn more about the COVID-19 vaccine, we invite you to visit the [employer] website for a list of frequently asked questions. [email or web address].pdf [facility] Patient Portal Access Instructions: Stay connected with your healthcare team and access your personal medical information anytime with the [facility] Patient Portal.If you would like a full copy of your medical records, please contact the [facility] Medical Records Department, Sunday through Sunday between 8a.m. and 4:30p.m. Please follow the directions below to access the portal: 1.Access the email account you provided upon registration to the [facility].2.Look for an invitation email from [facility].3.Open the email and access the invitation link: Accept Invitation to [facility]4.Fill in the required wilkinson to create your account. Sign into [email or web address] with your username and password that you created in the above steps to stay up to date. You can then view a summary of results, a summary of your visits, and the ability to download your summaries to your computer or send the information securely to a physician. Remember that your healthcare information is confidential, so carefully consider who you will allow to register on the [facility] Patient Portal for access to your information. You can also access the [facility] Patient Portal on the [employer] eric. Simply click on Health Records under [employer] and then click on the [employer] logo. HOW TO SAFELY DISPOSE OF PRESCRIPTION MEDICATIONS Please use one of the following methods to safely dispose of your unused medications. 1.Use a drug disposal kit: the drug disposal pouch allows you to safely discard your old and unuseddrugs. Ask your nurse to give you one when you are discharged.2.Visit a local take-back location: Many local pharmacies and police departments have programs that collect old and unwanted prescriptiondrugs. Call your local pharmacy or go to http://bit.ly/2G2Mc4r to find one close to you.3.Make use of household items: Use cat litter or old coffee grounds to dispose medications if other options arenot available. Mix your drugs with these household products, seal them in an airtight container andthrow it into the garbage. Call [facility]: [phone] to be sure your drugs can be disposed of in this way. Some medicines may require a different approach.4.Never flush your medications down the toilet. IF YOU HAVE BEEN PRESCRIBED AN OPIOID FOR PAIN If you have been prescribed an opioid (such as hydrocodone, oxycodone or morphine), it is critical to understand the possible side effects and risks of opioid pain medications. Even when taken as directed, opioids can have several side effects including: Tolerance, meaning you might need to take more of a medication for the same pain relief. Nausea, vomiting and/or constipation. Sleepiness, dizziness, dry mouth, confusion, depression or itching. Physical dependence, meaning you have withdrawal symptoms when a medication is stopped, can develop within a few days. KNOW YOUR RESPONSIBILITIES It is important to know exactly how much and how often to take the opioid pain medications you are prescribed. Never take opioids in higher amounts or more often than prescribed. Do not combine opioids with alcohol or other drugs that cause drowsiness, such as benzodiazepines, also known as benzos, including diazepam and alprazolam, muscle relaxants or sleep aids. Never sell or share prescription opioids. This is illegal. Store opioids in a secure place and out of reach of others (including children, family, friends and visitors). The last page of this document has been signed and retained as a CHART COPY. Signatures Patient Education Materials Nausea and Vomiting, Adult Monitored Anesthesia Care, Care After Medication Leaflets My discharge plan and instructions have been reviewed and explained to me and I,BELLE SMITH understand my current condition and have read and understand these discharge instructions. I have received a written copy of the plan/instructions. If I have questions, I am aware that I should contact my doctor. 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 Mental status: at preoperative baseline, alert & oriented x 4. Respiratory function: lungs are clear to auscultation. Respiratory support: none. CV function: Normal rate. Cardiovascular support: none. Pain. Nausea status: denies nausea. Postoperative hydration status: within normal limits. Digitally Signed by LEAH SEVERINO on 12/16/2021 09:52 AM [facility]10-14-2022 Note [facility] ADMISSION HISTORY AND PHYSICIAL CHIEF COMPLAINT: HISTORY OF PRESENT ILLNESS: REVIEW OF SYSTEMS: ACTIVE PROBLEMS: (23) Absence of cervix (100826942) Allergic rhinitis (406129181) BMI 40.0-44.9, adult (4938421169) Chronic back pain (820491763) Chronic middle ear effusion (643226362) Diabetes mellitus (732706735) ISABELLA (generalized anxiety disorder) (19086012) GERD (gastroesophageal reflux disease) (548891671) Hidradenitis suppurativa (36473728) History of gastric bypass (7086362480) Hot flashes (515783887) Hypertension (60402518) Hyponatremia (104050858) IBS (irritable bowel syndrome) ([id number]) Kidney stones ([id number]) Morbid obesity (754223833) Neuropathy (5350856462) EMANUEL - Obstructive sleep apnea (9557804576) Peripheral neuropathy (477744370) Sleep apnea (858968776) Statin intolerance (6059649198) TMJ (temporomandibular joint disorder) (52063651) Vitamin D deficiency (84138006) MEDICATIONS: Active Inpt Meds: ceFAZolin Start: 12/17/21 6:00:00 EDT, Dose= 1 gram(s), IV Piggyback, PREOP pharm, Routine, Rate: 200 mL/hr, Infuse over: 30 minute(s), 100 mL, 12/17/21 6:00:00 EDT Active PRN Meds: HYDROmorphone (Dilaudid ( PACU )) Start: 12/16/21 8:32:00 EDT, Dose = 0.25 mg, = 0.25 mL, IV Push, q5min, PRN, Pain, scale 4-6, 8 dose(s), Stop: Limited # of times, 0, 12/16/21 8:32:00 EDT fentaNYL (fentaNYL ( PACU )) Start: 12/16/21 8:32:00 EDT, Dose = 50 mcg, = 1 mL, IV Push, q5min, PRN, Pain, breakthrough, 4 dose(s), Stop: Limited # of times, 12/16/21 8:32:00 EDT ondansetron (Zofran ( PACU )) Start: 12/16/21 8:32:00 EDT, Dose = 4 mg, = 2 mL, IV Push, AsDirected, PRN, Nausea/Vomiting, 1 dose(s), Stop: Limited # of times, 12/16/21 8:32:00 EDT One Time Meds: None Active IV Meds: Lactated Ringers Infusion 1,000 mL (LR 1,000 mL) Start: 12/16/21 7:28:00 EDT, Rate: 125 mL/hr, 12/16/21 7:28:00 EDT Lactated Ringers Infusion 1,000 mL (LR 1,000 mL) Start: 12/16/21 8:32:00 EDT, Rate: 20 mL/hr, 12/16/21 8:32:00 EDT ALLERGIES: (5) codeine NSAIDS sulfa drugs traMADol Vicodin FAMILY HISTORY: SOCIAL HISTORY: PHYSICAL EXAM: VITALS: DofhulKqvkNKDqzpyVOIpP1QZH5UfnaIx(kg) 12/16 07:4137.0135/07604025QG23/90560.3 24 Hr Tmax: 37.0 at 12/16 07:41 36 Hr Tmax: 37.0 at 12/16 07:41 Vital Signs are the last 5 in the past 48 hours. Weights display the last 5 within 7 days. Initial Wt: 12/16 102.3 kg 225 lb Current Wt: 12/16 102.3 kg 225 lb GENERAL: HEENT: CARDIOVASCULAR: RESPIRATORY: ABDOMEN: EXREMETIES: NEUROLOGICAL: PSYCHIATRIC: LABS: 36hr Labs 12/16 0741 Blood Glucose, [id number] Blood Glucose, [id number] Blood Glucose TSee Flowsheet DIAGNOSTICS: IMPRESSION: PLAN: History and Physical Update I have examined the patient; reviewed the H&P and there are no changes to the H&P unless noted below. Digitally Signed by RODRIGO RIVERA DPM on 12/16/2021 08:36 AM [facility]10-14-2022 Anesthesiology Consult note Patient: BELLE SMITH Age: 51 years Sex: Female : 1970 Associated Diagnoses: None Author: LEAH SEVERINO Preoperative Information Time of last food or liquid consumption: 12/16/2021 00:00:00 Anesthesia history Patient's history: negative. Family's history: negative. Health Status Allergies: Allergic Reactions (Selected) Severity Not Documented Codeine- Rash. NSAIDS- Due to bypass surgery. Sulfa drugs- Rash. TraMADol- Unknown. Vicodin- Rash., Allergies (5) ActiveReaction codeineRash NSAIDSdue to bypass surgery sulfa drugsRash traMADolUnknown VicodinRash Current medications: (Selected) Inpatient Medications Ordered LR 1,000 mL: 125 mL/hr, Intravenous ceFAZolin: 1 gram(s), 200 mL/hr, IV Piggyback, PREOP pharm Prescriptions Prescribed ALPRAZolam 0.25 mg oral tablet: 0.25 mg, 1 tab(s), Oral, TID, for 30 day(s), PRN: for anxiety, 90 tab(s), 2 Refill(s) FLUoxetine 40 mg oral capsule: 80 mg, 2 cap(s), Oral, qDay, 180 cap(s), 1 Refill(s) Flonase 50 mcg/inh nasal spray: 2 spray(s), Nostril, each, qAM, 1 EA, 3 Refill(s) cetirizine 10 mg oral tablet: 10 mg, 1 tab(s), Oral, qDay, 90 tab(s), 3 Refill(s) gabapentin 100 mg oral capsule: 100 mg, 1 cap(s), Oral, TID, for 90 day(s), 270 cap(s), 1 Refill(s) hydroCHLOROthiazide 25 mg oral tablet: 25 mg, 1 tab(s), Oral, qDay, 90 tab(s), 1 Refill(s) lisinopril 20 mg oral tablet: 20 mg, 1 tab(s), Oral, qDay, 90 tab(s), 1 Refill(s) metFORMIN 1000 mg oral tablet (IR): 1,000 mg, 1 tab(s), Oral, BID, 180 tab(s), 1 Refill(s) omeprazole 20 mg oral delayed release capsule: 20 mg, 1 cap(s), Oral, qDay, 90 cap(s), 1 Refill(s) promethazine 25 mg oral tablet: 25 mg, 1 tab(s), Oral, q4h, PRN: as needed for nausea/vomiting, 60 tab(s), 0 Refill(s) Documented Medications Documented Mineral Magnesium 250mg tablet: 250 mg, 1 tab(s), Oral, qDay, 0 Refill(s) Multivitamin: 1 tab(s), Oral, Daily, 0 Refill(s) Vitamin B1 250 mg oral tablet: 250 mg, 1 tab(s), Oral, qWeek, 100 tab(s), 0 Refill(s) Vitamin B12: 250 mcg, Oral, qWeek, 0 Refill(s) Vitamin D3: 10,000 Int unit, Oral, qDay, 0 Refill(s) biotin: 5 mg, Oral, qDay, 0 Refill(s), Medications (2) Active Scheduled: (1) ceFAZolin 1 gram(s), IV Piggyback, PREOP pharm Continuous: (1) Lactated Ringers 1,000 mL 1,000 mL, Intravenous, 125 mL/hr PRN: (0) Problem list: Medical Allergic rhinitis / SNOMED CT 339271286 / Confirmed BMI 40.0-44.9, adult / SNOMED CT 3748724398 / Confirmed Chronic back pain / SNOMED CT 935043116 / Confirmed Chronic middle ear effusion / SNOMED CT 646257048 / Confirmed Diabetes mellitus / SNOMED CT 324346859 / Confirmed Hot flashes / SNOMED CT 993219835 / Confirmed GERD (gastroesophageal reflux disease) / SNOMED CT 760318353 / Confirmed ISABELLA (generalized anxiety disorder) / SNOMED CT 69711113 / Confirmed Hidradenitis suppurativa / SNOMED CT 27740130 / Confirmed History of gastric bypass / SNOMED CT 4631023240 / Confirmed Hypertension / SNOMED CT 14110406 / Confirmed Hyponatremia / SNOMED CT 138301722 / Confirmed IBS (irritable bowel syndrome) / SNOMED CT [id number] / Confirmed Kidney stones / SNOMED CT [id number] / Confirmed Morbid obesity / SNOMED CT 598808091 / Confirmed EMANUEL - Obstructive sleep apnea / SNOMED CT 4204073624 / Confirmed Peripheral neuropathy / SNOMED CT 959012934 / Confirmed Sleep apnea / SNOMED CT 986822336 / Confirmed Statin intolerance / SNOMED CT 7975470505 / Confirmed Absence of cervix / SNOMED CT 804695585 / Confirmed Vitamin D deficiency / SNOMED CT 76285242 / Confirmed, Active Problems (23) Absence of cervix Allergic rhinitis BMI 40.0-44.9, adult Chronic back pain Chronic middle ear effusion Diabetes mellitus ISABELLA (generalized anxiety disorder) GERD (gastroesophageal reflux disease) Hidradenitis suppurativa History of gastric bypass Hot flashes Hypertension Hyponatremia IBS (irritable bowel syndrome) Kidney stones Morbid obesity Neuropathy EMANUEL - Obstructive sleep apnea Peripheral neuropathy Sleep apnea Statin intolerance TMJ (temporomandibular joint disorder) Vitamin D deficiency Histories Past Medical History: Active Kidney stones ([id number]) Hypertension (00376199) Chronic back pain (140528740) IBS (irritable bowel syndrome) ([id number]), neuropathy, NIDDM,, BMI 41.2 Family History: Gout Mother Father Diabetes mellitus Brother Hypertension Father Heart disease Father Brother Diabetes mellitus type 1 Mother Stroke Grandparent (pat grandmother) Cirrhosis of liver Mother Kidney disease Mother Congestive heart failure Father Grandparent (pat grandmother) Grandparent (mat grandfather) Grandparent (mat. grandmother) Grandparent (pat grandfather) HTN - Hypertension Brother Diabetes Father Grandparent (mat grandfather) Grandparent (mat. grandmother) Procedure history: Excision ([id number]) on 05/06/2020 at 49 Years. Comments: 05/18/2020 15:50 EDT - Macy Cruz LPN Focal Hidradenitis, Right Perineal Area Bariatric operative procedure ([id number]) on 07/28/2018 at 47 Years. Hernia ([id number]) on 07/28/2018 at 47 Years. Comments: 11/21/2018 8:25 EDT - Jane Earl LPN hiatal Esophagogastroduodenoscopy (297692474) on 12/19/2017 at 47 Years. Lithotripsy (412426863) in 2010 at 40 Years. Hysterectomy (688923841). Cholecystectomy (82707238). foot (3399620103). Comments: 04/11/2016 7:42 ARIELLA - LENNY CHILDS left Tubal ligation (624680659). Tonsillectomy (082250955). Umbilical hernia (0124872057). Social History Social & Psychosocial Habits Alcohol 04/28/2020 Use: Current Frequency: 1-2 times per year Substance Abuse 09/25/2017Risk Assessment: Denies Substance Abuse 11/21/2018 Use: Never Tobacco 04/28/2020 Tobacco Use: Former smoker, quit more Type: Cigarettes Number of years: 20 Stopped at age: 41 Years Home/Environment 04/28/2020 Domestic Concerns None Living situation: Home/Independent Primary House Worker: self Current Home Treatments Blood Glucose monitoring, cpap Special Services and Community Resources None Marital Status of Patient if Patient Independent Adult: Unmarried Nutrition/Health 04/28/2020 Type of diet: Regular Appetite Good Eating Difficulties None Caffeine intake amount: None . Physical Examination Vital Signs 12/16/2021 7:41 EDT Temperature Temporal Artery 37.0 DegC Apical Heart Rate 66 bpm Respiratory Rate 19 br/min Systolic Blood Pressure 135 mmHg Diastolic Blood Pressure 82 mmHg Vital Signs(last 24 hrs) Last Charted Resp Rate 19 br/min (DEC 16 07:41) Measurements from flowsheet : Measurements 12/16/2021 7:41 EDT Height 157.5 cm Height in inches 62 inch(es) Admission Weight 102.3 kg Weight Lbs 225.1 lb [place] Body Weight 50.12 kg Pain assessment: Pain Assessment 12/16/2021 7:41 EDT Primary Pain Intensity 0 Pain Scale Type 0-10 Pain scale . General: Alert and oriented. Airway: Normal temporomandibular joint mobility. Mallampati classification: III (soft palate, base of uvula visible). Head: Normocephalic. Dentition Evaluation: Intact. Neck: Supple. Respiratory: Lungs are clear to auscultation. Cardiovascular: Normal rate. Heart Sounds: Normal. Gastrointestinal: Soft. Musculoskeletal Normal range of motion. Integumentary: Intact. Neurologic: Alert. Review / Management Results review: No qualifying data available , Lab results 12/16/2021 8:07 EDT SN - CAt - Case Attendee SN - CAt - Case Attendee SN - CAt - Case Attendee SN - CAt - Case Attendee SN - CAt - Case Attendee SN - CAt - Case Attendee SN - CAt - Case Attendee SN - CAt - Case Attendee SN - CAt - Case Attendee SN - CAt - Case Attendee SN - CAt - Role Performed Primary Surgeon SN - CAt - Role Performed Assistant Hvac Mechanic 1 SN - CAt - Role Performed SENIOR SHIPPING CLERK SN - CAt - Role Performed Scrub 1 SN - CAt - Role Performed Box Printer 1 12/16/2021 7:50 EDT Infectious Disease Symptoms Patient states no symptoms Safety Brochure Information Reviewed Yes Fani Santoscome Video Viewed No Teaching Evaluation Verbalizes/Nonverbally indicates understanding Admission Note-Nursing Same Day Patient History (Modified) 12/16/2021 7:49 EDT SN - Preop - CTm Pt Ready for OR/Proced 12/16/2021 7:49 12/16/2021 7:49 EDT Lactated Ringers Injection Begin Bag 1,000 mL mL 12/16/2021 7:41 EDT SN - Preop - CTm Pt in SDS Room 12/16/2021 7:28 12/16/2021 7:41 EDT Blood Glucose, Capillary 109 mg/dL Blood Glucose Testing Reason Routine Height 157.5 cm Height in inches 62 inch(es) Admission Weight 102.3 kg Weight Lbs 225.1 lb [place] Body Weight 50.12 kg Temperature Temporal Artery 37.0 DegC Apical Heart Rate 66 bpm Respiratory Rate 19 br/min Systolic Blood Pressure 135 mmHg Diastolic Blood Pressure 82 mmHg Primary Pain Intensity 0 Pain Scale Type 0-10 Pain scale Nail Bed Color Enemy Swim Capillary Refill < 2 seconds Heart Rhythm Regular All Lobes Breath Sounds Clear, Equal Oxygen Therapy Room air Oxygen Saturation 96 % Abdomen Description Non-distended, Soft Abdomen Palpation Non-Tender Bowel Sounds All Quadrants Hypoactive Urinary Elimination Voiding, no difficulties Skin Temperature Warm Skin Description Enemy Swim, Normal for ethnicity, Dry Skin Integrity Intact IV Present Present Antecubital Right 12/16/2021 20 gauge Peripheral IV Activity: Insert new site Peripheral IV Dressing Condition: Clean, Dry, Intact Peripheral IV Dressing Activity: Applied, Transparent dressing Peripheral IV Line Status/Patency: Continuous infusion, Good blood return Peripheral IV Line Care: Secured with tape Peripheral IV Site Condition: No complications Peripheral IV Equipment: Extension set, PRN Adaptor Peripheral IV Number of Attempts: 1 Neurological Symptoms Patient denies Extremity Movement Equal Characteristics of Speech Clear Level of Consciousness Alert Strength All Extremities Strong Tone All Extremities Normal Left Lower Extremity Sensation Numbness, Tingling Right Lower Extremity Sensation Numbness, Tingling Affect/Behavior Appropriate, Calm, Cooperative Orientation Oriented x 4 Allergies Yes Consent Form Signed Yes Patient Dressed In Hospital gown CHG Preoperative Wash/Wipe Night before procedure, Day of procedure History & Physical Update On Chart Yes History & Physical On Chart Yes Orientation Assessment Oriented x 4 Assistive Device None SCD On/Re-applied left knee high NPO Status Maintained Standard Safety ID band on, Allergy Band on, Call device within reach, Bed in low position, Wheels locked, Non-Slip footwear Allergy Band on and Verified Yes Patient ID Band on and Verified Yes Implants Verified Yes Pacemaker/AICD Verified Yes Anesthesia Consent Signed Yes Blood Consent Signed Yes Last Fluid Intake 12/15/2021 23:30 Last Food Intake 12/15/2021 23:00 Last Void 12/16/2021 7:44 . Assessment and Plan [place] [employer] Anesthesiologists (ASA) physical status classification: Class III. Anesthetic Preoperative Plan Premedication: None. Anesthetic technique: MAC. Induction: intravenously. Postoperative pain management: Per surgeon. Risks discussed: nausea, vomiting, headache, sore throat, dental injury, hypotension, allergic reaction, serious complications. Informed consent: signed by patient. Digitally Signed by LEAH SEVERINO on 12/16/2021 08:31 AM [facility]10-12-2022 Note ORIGINAL NM MYOCARDIAL SPECT STRESS/REST CLINICAL STATEMENT: abnormal ekg, pre-op TECHNIQUE: Lexiscan dose:0.4 mg Radiopharmaceutical (stress): Tc-99m Sestamibi Dose:32.2 mCi Radiopharmaceutical (rest): Tc-99m Sestamibi Dose:10.9 mCi SPECT acquisition and processing Reconstruction and reorientation of SPECT images into short axis, vertical and horizontal long axisplanes Quantitative LVEF assessment COMPARISON:None REPORT:Overall, image quality is fair. Rotating planar images show no significant patient motion. SPECT perfusion images during rest and stress show homogenous radiotracer uptake, there is decreased uptake at the apex with stress and stress, could be from apically thinning/artifact, infarct less likely given normal wall motion at apex and normal EF. GATED SPECT images show normal LV size and function. Ejection fraction calculated at 65% IMPRESSION: 1. No evidence for ischemia. 2. No evidence of infarction (apical defect likely due to artifact). 3. Normal LV size and function. 4. No previous for comparison. Interpreted By: John Bhatti Preliminary Report By: John Bhatti Electronically Signed By: John Bhatti Dictated Date: 12/14/2021 12:59:25 PM Prelim Date: 12/14/2021 12:59:25 PM Sign Date: 12/14/2021 1:06:57 PM Ordering Provider:Berenice Bowling [facility]10-12-2022 Note ORIGINAL NM MYOCARDIAL SPECT STRESS/REST CLINICAL STATEMENT: abnormal ekg, pre-op TECHNIQUE: Lexiscan dose:0.4 mg Radiopharmaceutical (stress): Tc-99m Sestamibi Dose:32.2 mCi Radiopharmaceutical (rest): Tc-99m Sestamibi Dose:10.9 mCi SPECT acquisition and processing Reconstruction and reorientation of SPECT images into short axis, vertical and horizontal long axisplanes Quantitative LVEF assessment COMPARISON:None REPORT:Overall, image quality is fair. Rotating planar images show no significant patient motion. SPECT perfusion images during rest and stress show homogenous radiotracer uptake, there is decreased uptake at the apex with stress and stress, could be from apically thinning/artifact, infarct less likely given normal wall motion at apex and normal EF. GATED SPECT images show normal LV size and function. Ejection fraction calculated at 65% IMPRESSION: 1. No evidence for ischemia. 2. No evidence of infarction (apical defect likely due to artifact). 3. Normal LV size and function. 4. No previous for comparison. Interpreted By: John Bhatti Preliminary Report By: John Bhatti Electronically Signed By: John Bhatti Dictated Date: 12/14/2021 12:59:25 PM Prelim Date: 12/14/2021 12:59:25 PM Sign Date: 12/14/2021 1:06:57 PM Ordering Provider:[facility]12-23-2021 History of Present illness Narrative* Bradley Reynolds APRN.PASTE UP WORKER - 02/24/2021 12:47 PM EST DATE OF SERVICE: 02/21/2021 HISTORY OF PRESENT ILLNESS: Patient is a 50-year-old female presenting [facility] for left ear pain and some sinus congestion as well. Symptoms started about 3 days ago. She did have ear tubes placed in the left ear about 2 to 3 weeks ago, and she did not call her ears, nose, and throat since the onset of ear pain. Denies any fevers, sweats, chills. No chest pain. No shortness of breath. No nausea or vomiting. PAST MEDICAL HISTORY: Diabetes, hypertension, and ulcers. ALLERGIES: SULFA, TYLENOL WITH CODEINE, AND VICODIN. MEDICATIONS: 1. Metformin. 2. Hydrochlorothiazide. 3. Lisinopril. 4. Zyrtec. 5. Fluoxetine. PHYSICAL EXAMINATION: Vital signs: Reviewed and stable. General: Well-appearing, nontoxic, in no apparent distress. Cardiovascular: Regular rate and rhythm. No murmurs. Respiratory: Lungs sound clear to auscultation bilaterally. No respiratory distress. HEENT: Bilateral TMs clear, noninjected. Tympanic tube noted, left TM. Nasal mucosal erythema and edema. Clear rhinorrhea. Posterior pharynx: Postnasal drip. No tonsillar hypertrophy or exudate present. No maxillary sinus tenderness or frontal sinus tenderness. CLINICAL IMPRESSION: 1. Nasal congestion. 2. Left otalgia. PLAN: Prescription for Flonase sent to pharmacy. Discussed Tylenol and ibuprofen, increased oral hydration. Continue Zyrtec. Follow up with ears, nose, and throat. Agreeable with plan. No other questions or concerns. Bradley Reynolds CNP /[id number] [facility] File#: [id number] END OF DOCUMENT / CHANGE LOG FOLLOWS Last Edited By Liyah. Signed By Bradley Reynolds CNP #MOYCO Bradley Reynolds CNP #MOYCMary on 02/27/2021 09:09 ET on 02/27/2021 09:09 ET Revision Number - 2 ^^^ Verified/Reviewed by 02/27/2109 KASH [facility] PATIENT NAME: BELLE SMITH [address] [place] MEDICAL REC #: [id number] [place] [address] [facility] REPORT [facility] documented in this encounterPrem[facility] History of Present illness Narrative* Harvey Jimenez CNP - 02/01/2020 4:20 PM EST DATE OF SERVICE: 02/01/2020 HISTORY OF PRESENT ILLNESS: Mitra is a 1[facility]-old [facility] of a rash for over 2 weeks by her mother. Mother was concerned because family members have been telling her that the baby has COVID, so she brought her in to be evaluated. She has had no fever, no symptoms, just this pale blotchy rash scattered all over her body. PAST MEDICAL HISTORY: She was born at 36 weeks gestation because of ruptured membranes. She got [facility] go to [facility]. Vaccines are up-to-date. No overnight hospitalizations or surgeries. Follows up with Dr. Beauchamp. PHYSICAL EXAMINATION: Blood pressure not done on a 1 year old, pulse is 130, respirations 24, temperature 98.7, pulse oximetry on room air is 99%. A 1-year-old female, accompanied by her mother, presents with whole body rash from scalp all the way down to her toes. Does not appear to be toxic. Alert and oriented, tearful with exam, and clinging to her mother. Head is normocephalic. Pupils are equal, reactive. She does track the exam light. EOMs are intact. Mucous membranes are moist. Pharynx is not injected. She has clear post-nasal drainage and clear drainage from her nose. Lungs are clear to auscultation. Heart was without murmur or gallop, is tachycardic. Abdomen is soft, bowel sounds are present in all 4 quadrants. Slightly raised rash noted over skin surface. ASSESSMENT: Rash. PLAN: Plan is to a prescription of prednisolone 22 mg per day for 5 days and no ibuprofen while taking the steroid, and advised to follow up with her primary care provider. The child was discharged home in stable condition. BUDDY Perla/[id number] [facility] File#: [id number] END OF DOCUMENT / CHANGE LOG FOLLOWS Last Edited By Liyah. Signed By Harvey Jimenez CNP, Jean A CNP #MORJE on 03/05/2020 09:47 ET on 03/05/2020 09:47 ET Revision Number - 2 ^^^ Verified/Reviewed by 03/05/20 0947 EWA [facility] PATIENT NAME: BELLE SMITH [address] [place] MEDICAL REC #: [id number] [place] [address] [facility] REPORT [facility] documented in this encounterPrem[facility]10-08-[facility] History of Present illness Narrative* Irma Barnett, DO - 12/11/2019 2:08 PM EDT DATE OF SERVICE: 12/10/2019 SUBJECTIVE: A 49-year-old female presents today complaining of left foot pain, no injury. Symptoms started December 07, progressively getting worse. ALLERGIES: SULFA, TYLENOL WITH CODEINE, VICODIN. No Aleve or Naprosyn. She has had gastric bypass. Examination of the left foot shows some swelling diffusely with diffuse tenderness. She has a history of some difficulties with the foot. She has had surgery with it before. She does have an appointment with her pediatrist tomorrow but says that she just cannot take the pain tonight. The only thing that she really is able to take is Percocet, and she has been able to take that before without it hurting her stomach. PAST MEDICAL HISTORY: Positive for diabetes, high blood pressure, bursitis, ulcers, gastric bypass, orthopedic surgery. SOCIAL HISTORY: Nonsmoker, nondrinker. Unremarkable. FAMILY HISTORY: Positive for heart disease, diabetes, high blood pressure. PHYSICAL EXAMINATION: Height 5 feet 2, weight 248 pounds, blood pressure 130/80, pulse 80, respirations 16, temperature 98.6, pulse oximetry is 97%. This is a 49-year-old female. Examination of the left foot shows diffuse generalized swelling with tenderness to palpation particularly over the lateral malleolus around the ankle joint itself. Pulses are +2/4 and capillary refill less than 3 seconds. Normal motor, neurovascular and sensory to the digits. IMPRESSION: Chronic left foot and ankle pain. PLAN: The patient is placed on Percocet 5/325 and rest, fluids, ice pack, elevate. Follow with the pediatrist tomorrow. Irma Barnett DO /[id number] [facility] File#: [id number] END OF DOCUMENT / CHANGE LOG FOLLOWS Last Edited By Liyah. Signed By Irma Barnett Lisa D DO #VAULI on 12/15/2019 10:40 ET on 12/15/2019 10:40 ET Revision Number - 2 ^^^ Verified/Reviewed by 12/15/19 1040 PHI [facility] PATIENT NAME: BELLE SMITH [address] [place] MEDICAL REC #: [id number] [place] [address] [facility] REPORT [facility] documented in this encounterBerger Hospitallt note Author Gino Carter [facility] Note Date/Time August 14, 2024 11:0 2am [facility] Medical Records Department [address] [place] [address] Anesthesia Postop Eval II 08/14/24 1102 MR#: [id number] Acct: [id number] Name: BELLE HAMM Rep #:[id number] : 1970 54 From: Gino Carter MD PCP: Dr. Berenice Bowling, DO Status: REG SDC Y Race: C Location: [place] [address]- Anesthesia Postop Eval I Sum Postop Eval Completion status Anesthesia document: Postop Eval 1 completed: Yes Anesthesia Postop Eval I Summary Anesthesia Postop Eval I Summary: Anesthesia Postop Eval I: Assessment Summary Airway patent Yes 08/14/24 10:53 [email or web address] Spontaneous unlabored Yes 08/14/24 10:53 [email or web address] respirations Mental status Awake,Calm 08/14/24 10:53 [email or web address] nausea No 08/14/24 10:53 [email or web address] Vomiting No 08/14/24 10:53 [email or web address] Anesthesia Postop Eval I: Fluid Summary Crystalloid volume administer 600 08/14/24 10:53 [email or web address] (ml) Colloids volume administered ( ml) Blood Product volume administered (ml) Total IV fluid infused 600 08/14/24 10:53 [email or web address] Anesthesia Postop Eval I: Summary Notes Anesthesia Complication No 08/14/24 10:53 [email or web address] Anesthesia Complication Comment: Post-operative progress note Anesthesia: Postop Eval II Evaluation Mental status: Awake Pain Level: 0 nausea: No Vomiting: No 08/14/24 1102 <Electronically signed by Gino Carter MD > Date _ Gino Carter MD [facility] Signature: Date CC: ~ Signed [facility] Work Phone: Evaluation + Plan note Future Appointments Appointment Date:04/19/2021 08:20:00 AM Scheduled Provider:BERENICE BOWLING DO Location:[facility] Appointment Type:[facility] Evaluation + Plan note Future Appointments Appointment Date:07/05/2021 08:30:00 AM Scheduled Provider:BERENICE BOWLING DO Location:[facility] Appointment Type:PC OV Future Scheduled Tests Laboratory* Thyroid Stimulating Hormone 04/19/21 * Complete Blood Count 04/19/21 * Lipid Profile 04/19/21 * Complete Metabolic Panel 04/19/21 [facility] Evaluation + Plan note Future Appointments Appointment Date:09/01/2021 10:30:00 AM Scheduled Provider:BERENICE BOWLING DO Location:[facility] Appointment Type:PC OV Future Scheduled Tests Laboratory* Thyroid Stimulating Hormone 04/19/21 * Complete Blood Count 04/19/21 * Lipid Profile 04/19/21 * Complete Metabolic Panel 04/19/21 [facility] Evaluation + Plan note Future Appointments Appointment Date:12/06/2021 07:00:00 AM Scheduled Provider:BERENICE BOWLING DO Location:[facility] Appointment Type:PC OV Future Scheduled Tests Laboratory* Thyroid Stimulating Hormone 04/19/21 * Complete Blood Count 04/19/21 * Lipid Profile 04/19/21 * Complete Metabolic Panel 04/19/21 [facility] Surgery evaluation + Plan note Future Appointments Appointment Date:03/07/2022 07:00:00 AM Scheduled Provider:BERENICE BOWLING DO Location:[facility] Appointment Type:PC OV Follow Up Future Scheduled Tests Laboratory* Thyroid Stimulating Hormone 04/19/21 * Complete Blood Count 04/19/21 * Lipid Profile 04/19/21 * Complete Metabolic Panel 04/19/21 [facility] evaluation + Plan note Future Appointments Appointment Date:11/30/2022 08:30:00 AM Scheduled Provider:BERENICE BOWLING DO Location:[facility] Appointment Type:PC OV Future Scheduled Tests Radiology* MA Mammo Screening Bilateral w/ Jared 07/13/22 [facility] Evaluation + Plan note Future Appointments Appointment Date:08/09/2022 08:00:00 AM Scheduled Provider:JONH NY MD Location:[facility] Appointment Type:PC OV Appointment Date:11/30/2022 08:30:00 AM Scheduled Provider:BERENICE BOWLING DO Location:[facility] Appointment Type:PC OV [facility] Evaluation + Plan note Future Appointments Appointment Date:11/30/2022 11:30:00 AM Scheduled Provider:BERENICE BOWLING DO Location:[facility] Appointment Type:PC OV [facility] Evaluation + Plan note Future Appointments Appointment Date:03/01/2023 07:00:00 AM Scheduled Provider:BERENICE BOWLING DO Location:[facility] Appointment Type:PC OV [facility] Evaluation + Plan note Future Appointments Appointment Date:08/30/2023 07:00:00 AM Scheduled Provider:BERENICE BOWLING DO Location:[facility] Appointment Type:PC OV Appointment Date:11/09/2023 09:00:00 AM Scheduled Provider: Location:[facility] Appointment Type:OSM OV Follow Up [facility] Evaluation + Plan note Future Appointments Appointment Date:11/09/2023 09:00:00 AM Scheduled Provider: Location:[facility] Appointment Type:OSM OV Follow Up Appointment Date:12/14/2023 07:30:00 AM Scheduled Provider:BERENICE BOWLING DO Location:[facility] Appointment Type:PC OV [facility] Evaluation + Plan note Future Appointments Appointment Date:11/09/2023 09:00:00 AM Scheduled Provider: Location:[facility] Appointment Type:OSM OV Follow Up Appointment Date:12/14/2023 07:30:00 AM Scheduled Provider:BERENICE BOWLING DO Location:[facility] Appointment Type:PC OV Diagnostic Tests Pending * Vitamin A, Serum 10/30/23 * Vitamin B1 (Thiamine), Blood 10/30/23 [facility] Evaluation + Plan note Future Appointments Appointment Date:12/04/2023 09:30:00 AM Scheduled Provider:BERENICE BOWLING DO Location:[facility] Appointment Type:PC OV ED Follow Up Appointment Date:12/14/2023 07:30:00 AM Scheduled Provider:BERENICE BOWLING DO Location:[facility] Appointment Type:PC OV Appointment Date:02/08/2024 09:00:00 AM Scheduled Provider: Location:[facility] Appointment Type:OSM OV Follow Up [facility] Evaluation + Plan note Future Appointments Appointment Date:02/08/2024 09:00:00 AM Scheduled Provider: Location:[facility] Appointment Type:OSM OV Follow Up Appointment Date:04/03/2024 08:00:00 AM Scheduled Provider:BERENICE BOWLING DO Location:[facility] Appointment Type:PC OV [facility] Evaluation + Plan note Future Appointments Appointment Date:06/24/2024 08:30:00 AM Scheduled Provider:BERENICE BOWLING DO Location:[facility] Appointment Type:PC OV Future Scheduled Tests Laboratory* Thyroid Stimulating Hormone 06/25/24 * A1C Hemoglobin 06/25/24 * Complete Blood Count 06/25/24 * Lipid Profile 06/25/24 * Vitamin D Level 06/25/24 * Complete Metabolic Panel 06/25/24 [facility] Evaluation + Plan note Future Appointments Appointment Date:07/09/2024 09:00:00 AM Scheduled Provider:[place] [id number] Location:[facility] Appointment Type:PT Outpatient Evaluation Appointment Date:09/23/2024 09:30:00 AM Scheduled Provider:BERENICE BOWLING DO Location:[facility] Appointment Type:PC OV [facility] Evaluation + Plan note Future Appointments Appointment Date:07/03/2024 08:30:00 AM Scheduled Provider:Yesy Alvarado PT [id number] Location:[facility] Appointment Type:PT Outpatient Evaluation Appointment Date:07/03/2024 09:30:00 AM Scheduled Provider: Location:[facility] Appointment Type:CT Sinus w/o Contrast Appointment Date:09/23/2024 09:30:00 AM Scheduled Provider:BERENICE BOWLING DO Location:[facility] Appointment Type:PC OV Future Scheduled Tests Radiology* CT Sinus w/o Contrast 07/03/24 [facility] Evaluation + Plan note Future Appointments Appointment Date:08/04/2024 07:00:00 AM Scheduled Provider: Location:[facility] Appointment Type:PT Treatment - West Appointment Date:08/08/2024 11:00:00 AM Scheduled Provider: Location:[facility] Appointment Type:OSM OV New Problem Appointment Date:09/23/2024 09:30:00 AM Scheduled Provider:BERENICE BOWLING DO Location:[facility] Appointment Type: OV [facility] Evaluation + Plan note Future Appointments Appointment Date:08/19/2024 08:00:00 AM Scheduled Provider:BERENICE BOWLING DO Location:[facility] Appointment Type:PC OV Appointment Date:09/23/2024 09:30:00 AM Scheduled Provider:BERENICE BOWLING DO Location:[facility] Appointment Type:PC OV [facility] Evaluation + Plan note Future Appointments Appointment Date:03/18/2024 01:30:00 PM Scheduled Provider:BERENICE BOWLING DO Location:[facility] Appointment Type:PC OV [facility] Evaluation + Plan note Future Appointments Appointment Date:03/18/2024 01:30:00 PM Scheduled Provider:BERENICE BOWLING DO Location:[facility] Appointment Type:PC OV Future Scheduled Tests Laboratory* Potassium Level 02/22/24 [facility] Evaluation + Plan note Future Appointments Appointment Date:10/23/2024 10:45:00 AM Scheduled Provider:BEKA BRONSON MD Location:[facility] Appointment Type:HEM ONC New Patient Appointment Date:10/28/2024 09:00:00 AM Scheduled Provider:BERENICE BOWLING DO Location:[facility] Appointment Type:PC OV Pre Op Appointment Date:12/23/2024 08:00:00 AM Scheduled Provider:BERENICE BOWLING DO Location:[facility] Appointment Type:[facility] Evaluation + Plan note Future Appointments Appointment Date:10/01/2024 01:00:00 PM Scheduled Provider:BETSY CARIAS Location:[facility] Appointment Type:PC OV ED Follow Up Appointment Date:10/23/2024 10:45:00 AM Scheduled Provider:BEKA BRONSON MD Location:[facility] Appointment Type:HEM ONC New Patient Appointment Date:10/28/2024 09:00:00 AM Scheduled Provider:BERENICE BOWLING DO Location:[facility] Appointment Type:PC OV Pre Op Appointment Date:12/23/2024 08:00:00 AM Scheduled Provider:BERENICE BOWLING DO Location:[facility] Appointment Type:[facility] Evaluation note* Diagnosis Onset Date Resolution Status Encounter for screening for malignant neoplasm of colo n acute GERD (gastroesophageal reflux disease) acute Rib contusion acute [facility] Work Phone: Evaluation note* Diagnosis Bacterial sinusitis- Primary Unspecified sinusitis (chronic) Pharyngitis, unspecified etiology [facility] Diagnosis Onset Date Resolution Status Hives acute Dysphagia acute Encounter for screening for malignant neoplasm of colo n acute History of Cristian-en-Y gastric bypass chronic Nausea chronic [facility] Work Phone: Evaluation note* Diagnosis Ear problem- Primary Other ear problems Diabetes (HCC) Type II or unspecified type diabetes mellitus without mention of complication, not stated as uncontrolled Hypertension Unspecified essential hypertension Irritable bowel syndrome Anxiety Anxiety state, unspecified Annual physical exam Routine general medical examination at a health care facility E[facility] (obstructive sleep apnea) Obstructive sleep apnea (adult) (pediatric) Morbid obesity with BMI of 40.0-44.9, adult (HCC) Morbid obesity Dysuria- Primary Vaginal itching Pruritus of genital organs documented in this encounter [facility] note* Diagnosis Onset Date Resolution Status Hives acute Dysphagia chronic History of Cristian-en-Y gastric bypass chronic Nausea chronic Dysphagia chronic History of Cristian-en-Y gastric bypass chronic Nausea chronic [facility] Work Phone: Evaluation note* Diagnosis Ear problem- Primary Other ear problems Diabetes (HCC) Type II or unspecified type diabetes mellitus without mention of complication, not stated as uncontrolled Hypertension Unspecified essential hypertension Irritable bowel syndrome Anxiety Anxiety state, unspecified Annual physical exam Routine general medical examination at a health care facility [facility] (obstructive sleep apnea) Obstructive sleep apnea (adult) (pediatric) Morbid obesity with BMI of 40.0-44.9, adult (HCC) Morbid obesity Petechiae- Primary Spontaneous ecchymoses Anemia, unspecified type documented in this encounter [facility] note* Diagnosis Pain, dental- Primary documented in this encounter [facility] note* Diagnosis Ear problem- Primary Other ear problems Diabetes (HCC) Type II or unspecified type diabetes mellitus without mention of complication, not stated as uncontrolled Hypertension Unspecified essential hypertension Irritable bowel syndrome Anxiety Anxiety state, unspecified Annual physical exam Routine general medical examination at a health care facility EMAN[facility] (obstructive sleep apnea) Obstructive sleep apnea (adult) (pediatric) Morbid obesity with BMI of 40.0-44.9, adult (HCC) Morbid obesity Petechiae- Primary Spontaneous ecchymoses documented in this encounter [facility] note* Diagnosis Ear problem- Primary Other ear problems Diabetes (HCC) Type II or unspecified type diabetes mellitus without mention of complication, not stated as uncontrolled Hypertension Unspecified essential hypertension Irritable bowel syndrome Anxiety Anxiety state, unspecified Annual physical exam Routine general medical examination at a health care facility [facility] (obstructive sleep apnea) Obstructive sleep apnea (adult) (pediatric) Morbid obesity with BMI of 40.0-44.9, adult (HCC) Morbid obesity Painful orthopaedic hardware- Primary Other complications due to other internal orthopedic device, implant, and graft Nonunion after arthrodesis Hallux malleus of left foot Pain in left foot Pain in limb Painful orthopaedic hardware Other complications due to other internal orthopedic device, implant, and graft 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 Berenice Bowling, DO Status: REG [facility] Location: [place] [address] History and Physical Date of Admission: 01/30/23 52 F who presents to the office today for *BGI established 04.14.21 for screening colonoscopy and intermittent esophageal dysphagia. History of Cristian-en-Y gastric bypass 2018; cholecystectomy 09.11.18 ? EGD and colonoscopy 06.13.21 Irregular Zline; small hiatal hernia;Cristian-en-y gastrojejunostomy with healthy anastomosis. Metaplasia neg. ? Colonoscopy hemorrhoids; diverticulosis. No specimens OV 09.30. still has intermittent dysphagia but finds PPI and gas-X helpful. Start reglan and PPI BID.OV 01.11.23 she has been having nausea followed by dysphagia with intermittent emesis following PO intake. She is not taking protonix or reglan. BM pattern is regular and wit ROS Const Constitutional: No body ache, chills, fatigue or fever(s) ENT ENT: No tongue swelling or throat swelling Resp Respiratory: No cough, shortness of breath or wheezing Gastro GI: No nausea/dyspepsia Skin Skin: Positive for redness, itchy eyes and rash Endo Endocrine: No fatigue Aller/Imm Allergy/Immunologic: Positive for itchy eyes; No throat swelling, tongue swelling or wheezing Exam Const General: cooperative, healthy appearing, comfortable, no acute distress, well developed and well groomed Nutritional Appearance: overweight Orientation: alert, awake and oriented x3 HENMT Head: normocephalic and atraumatic Resp Effort & Inspection: normal respiratory effort, able to speak in complete sentences, symmetric chest movement and no cough Auscultation: Bilateral: Clear to Auscultation Cardio Rate: regular rate Rhythm: regular rhythm Heart Sounds: no murmurs Skin Other: right upper chest irreg annular lesion about 3 inch in diameter, slightly raised, mildly erythematous, mildly excoriated, no drainage, nontender, no inc. warmth Quality Reporting Tobacco Screening ([facility] 138) Smoking Status: Former smoker Assessment and Plan Assessment and Plan (1) Nausea: Status: Chronic Plan: Chronic nausea can be a side effect from gastric bypass due to removal of gastrin. I would like to get a upper GI with follow-through plus or minus gastric emptying study (2) History of Cristian-en-Y gastric bypass: Status: Chronic Comment: 2019 (3) GERD (gastroesophageal reflux disease): Status: Inactive Qualifiers: Esophagitis presence: with esophagitis Esophagitis bleeding: without hemorrhage Qualified Code(s): K21.00 - Gastro-esophageal reflux disease with esophagitis, without bleeding Plan: She is having worsening gastroesophageal reflux disease that I thought was secondary to bile induced gastritis. She underwent an upper endoscopy was discovered to have a patent wire with a normal gastric pouch. There is no ulcerations at the proximal anastomosis with distal anastomosis. Biopsies were taken throughout the small bowel and it did show mild chronic inflammation with some very small inflammation at the site of surgery. I will give her a course of Reglan therapy along with switching her PPI to Protonix therapy (4) Encounter for screening for malignant neoplasm of colon: Status: Acute Plan: Her colonoscopy did not reveal any adenomatous polyp. She did have diverticulardisease. She will need a repeat colonoscopy in 5 years. (5) Dysphagia: Status: Acute Qualifiers: Dysphagia type: esophageal phase Qualified Code(s): R13.19 - Other dysphagia Plan: She will need to undergo an upper endoscopy to evaluate upper GI tract. She wasexplained alternatives, risk, benefits include not withstanding bleeding, pectin, sepsis, perforation, need for return to . She will have an ASA of 3. Medications: New pantoprazole 20 mg PO Q12H 3 months 180 tabs 3RF I have examined the patient and the H&P has been reviewed. There are no clinicalchanges since date of exam. 01/30/23 1450 <Electronically signed by Moncho Friend DO> Cosigner Signature (if applicable): CC: Dr. Berenice Bowling, DO; Moncho Carrillo, DO~ Signed [facility] Work Phone: Hospital course Narrative No data available for this section [facility] Hospital Discharge instructions No data available for this section [facility] Note* NEVAEH GILL MD: SIGN, VERIFY Event Display: VL Venous US/Doppler One Leg (DVT) AOH [facility] Progress note No data available for this section [facility] Reason for referral (narrative)No reason for referral information [place] Work Phone: Summary Purpose Family History No Family History Records Found Relationship Condition Age at Onset Recorded Date/T roni brother Diabetes mellitus Unknown Cardiac disease Unknown Advance Directives No Advanced Directives Records FoundDocuments on File Type Date Recorded Patient Sas Programmer Analyst Expl anation Advance Directives and Living Will Power of Precision Aircraft Structure Assembler Latest Code Status on File Code Status Date Activated Date Inactivated Comments Full Code 07/25/2018 9:10 AM 07/26/2018 4:10 PM Full Code 07/24/2018 3:28 PM 07/25/2018 9:10 AM Full Code 07/24/2018 7:36 AM 07/24/2018 3:27 PM Full Code 04/22/2018 11:30 AM 04/22/2018 3:31 PM Documents on File Type Date Recorded Patient Sas Programmer Analyst Expl anation Advance Directives and Living Will Power of Precision Aircraft Structure Assembler Latest Code Status on File Code Status Date Activated Date Inactivated Comments Full Code 07/25/2018 9:10 AM 07/26/2018 4:10 PM Full Code 07/24/2018 3:28 PM 07/25/2018 9:10 AM Full Code 07/24/2018 7:36 AM 07/24/2018 3:27 PM Full Code 04/22/2018 11:30 AM 04/22/2018 3:31 PM Documents on File Type Date Recorded Patient Sas Programmer Analyst Expl anation ACP-Advance Directive ACP-Power of Precision Aircraft Structure Assembler Advance Directive Response Recorded Date/ Time Living Will No June 08, 2021 11:47am Power of Precision Aircraft Structure Assembler No June 08 11:47am Advance Directive Response Recorded Date/ Time Living Will No January 23, 2 023 1:53pm Power of Precision Aircraft Structure Assembler No January 23, 2023 1:53pm Advance Directive Response Recorded Date/ Time Do you have a Healthcare Power of Precision Aircraft Structure Assembler? No August 11, 2024 3:22pm Reason for Referral Status Reason Specialty Diagnoses / Procedures Referre d By Contact Referred To Contact [facility] Diagnoses Hx of cholecystectomy RUQ abdominal pain Procedures US ABDOMEN LIMITED Lyric Riddle, BIOMASS PRODUCTION MANAGER - PASTE UP WORKER [address] [address] Assessments Diagnosis Hx of cholecystectomy Other acquired absence of organ RUQ abdominal pain Abdominal pain, right upper quadrant Diagnosis Vitamin D deficiency Unspecified vitamin D deficiency Intestinal malabsorption, unspecified type Deficiency of multiple nutrient elements Other nutritional deficiency Zinc deficiency Mineral deficiency, not elsewhere classified Iron deficiency Other disorders of iron metabolism [facility] (obstructive sleep apnea) Obstructive sleep apnea (adult) (pediatric) Chief Complaint and Reason for Visit Chief Complaint Admit Date Test Result August 28, 2024 6:51 am Reason for Visit Admit Date Personal history of colonic polyps August 14, 2024 8:24am Nausea August 14, 2024 8:24 am Chief Complaint NEEDS COLON & EGD RT SIDE RIB INJURY/PAIN 2 VIEW RT RIB Reason for Visit Encounter for screen ing for malignant neoplasm of colon GERD (gastroesophageal reflux disease) Rib contusion Chief Complaint HIVE ON NECK FOOD GETTING STUCK Reason for Visit Hives Dysphagia Encounter for screening for malignant neoplasm of colon History of Cristian-en-Y gastric bypass Nausea Chief Complaint HIVE ON NECK FOOD GETTING STUCK DYSPHAGIA 2 WK FU Reason for Visit Hives Dysphagia History of Cristian-en-Y gastric bypass Nausea Dysphagia History of Cristian-en-Y gastric bypass Nausea Additional Source Comments INFORMATION SOURCE (unrecogn ized section and content) DATE CREATED AUTHOR 01/03/2018 [employer] DATE CREATED AUTHOR AUTHOR'S ORGANIZ ATION 02/11/2018 [facility] DATE CREATED AUTHOR AUTHOR'S ORGANIZ ATION 08/09/2020 [employer] [facility] DATE CREATED AUTHOR AUTHOR'S ORGANIZ ATION 04/05/2021 [facility] antonia Freeman DATE CREATED AUTHOR AUTHOR'S ORGANIZ ATION 11/09/2023 [facility] ([place]) DATE CREATED AUTHOR AUTHOR'S ORGANIZ ATION 03/31/2024 [facility] DATE CREATED AUTHOR AUTHOR'S ORGANIZ ATION 05/03/2024 [facility] DATE CREATED AUTHOR AUTHOR'S ORGANIZ ATION 05/03/2024 [facility] DATE CREATED AUTHOR AUTHOR'S ORGANIZ ATION 10/07/2024 [facility] DATE CREATED AUTHOR AUTHOR'S ORGANIZ ATION 10/08/2024 [facility] DATE CREATED AUTHOR AUTHOR'S ORGANIZ ATION 10/12/2024 [facility] DATE CREATED AUTHOR AUTHOR'S ORGANIZ ATION 10/20/2024 [facility] DATE CREATED AUTHOR AUTHOR'S ORGANIZ ATION 10/20/2024 [facility]ter Source Comments (unrecognize d section and content) In the event this informatio n is protected by the Federal Confidentiality of Alcohol and Drug Abuse Patient Records regulations: The Federal rules restrict any use of the information to criminally investigate or prosecute any alcohol or drug abuse patient.[facility] the event this information is protected by the Federal Confidentiality of Alcohol and Drug Abuse Patient Records regulations: The Federal rules restrict any use of the information to criminally investigate or prosecute any alcohol or drug abuse patient.[facility] Center[facility] the event this information is protected by the Federal Confidentiality of Alcohol and Drug Abuse Patient Records regulations: The Federal rules restrict any use of the information to criminally investigate or prosecute any alcohol or drug abuse patient.[facility] Center[facility] the event this information is protected by the Federal Confidentiality of Alcohol and Drug Abuse Patient Records regulations: The Federal rules restrict any use of the information to criminally investigate or prosecute any alcohol or drug abuse patient.[facility] Center[facility] the event this information is protected by the Federal Confidentiality of Alcohol and Drug Abuse Patient Records regulations: The Federal rules restrict any use of the information to criminally investigate or prosecute any alcohol or drug abuse patient.[facility] Center[facility] the event this information is protected by the Federal Confidentiality of Alcohol and Drug Abuse Patient Records regulations: The Federal rules restrict any use of the information to criminally investigate or prosecute any alcohol or drug abuse patient.[facility] Center[facility] the event this information is protected by the Federal Confidentiality of Alcohol and Drug Abuse Patient Records regulations: The Federal rules restrict any use of the information to criminally investigate or prosecute any alcohol or drug abuse patient.[facility] Center[facility] the event this information is protected by the Federal Confidentiality of Alcohol and Drug Abuse Patient Records regulations: The Federal rules restrict any use of the information to criminally investigate or prosecute any alcohol or drug abuse patient.[facility] Center[facility] the event this information is protected by the Federal Confidentiality of Alcohol and Drug Abuse Patient Records regulations: The Federal rules restrict any use of the information to criminally investigate or prosecute any alcohol or drug abuse patient.[facility] Center[facility] the event this information is protected by the Federal Confidentiality of Alcohol and Drug Abuse Patient Records regulations: The Federal rules restrict any use of the information to criminally investigate or prosecute any alcohol or drug abuse patient.[facility] Center[facility] the event this information is protected by the Federal Confidentiality of Alcohol and Drug Abuse Patient Records regulations: The Federal rules restrict any use of the information to criminally investigate or prosecute any alcohol or drug abuse patient.[facility] Center[facility] the event this information is protected by the Federal Confidentiality of Alcohol and Drug Abuse Patient Records regulations: The Federal rules restrict any use of the information to criminally investigate or prosecute any alcohol or drug abuse patient.[facility] Goals (unrecognized section and content) Goals may be documented in a n alternate section Care Team (unrecognized sect ion and content) Care Team Personnel Name: BERENICE BOWLING DO Position: P4 Physician - Primary Care Med Service: Active Provider Member Role: Primary Care Physician Address: Address: [address] [place] [address] Care Team Related Persons Name: CLIFFORD MCCRAY Name: CLIFFORD THOMAS Name: MADELIN NAVARRETE Name: GALO SMITH Name: GALO SMITH Care Team Personnel Name: BERENICE BOWLING DO Position: P4 Physician - Primary Care Med Service: Active Provider Member Role: Primary Care Physician Address: Address: [address] [place] [address] Care Team Related Persons Name: CLIFFORD MCCRAY Name: CLIFFORD THOMAS Name: MADELIN NAVARRETE Name: GALO SMITH Name: GALO SMITH Care Team Personnel Name: BERENICE BOWLING DO Position: P4 Physician - Primary Care Med Service: Active Provider Member Role: Primary Care Physician Address: Address: [address] [place] [address]- Care Team Related Persons Name: CLIFFORD MCCRAY Name: GALO HAMM Name: NAVARRETE, MADELIN Name: NAVARRETE, MADELIN Name: LUIS, GALO Name: GALO SMITHKER Care Team Personnel Name: BERENICE BOWLING DO Position: P4 Physician - Primary Care Med Service: Active Provider Member Role: Primary Care Physician Address: Address: [facility] [address] Care Team Related Persons Name: CLIFFORD MCCRAY Name: GALO HAMM Name: NAVARRETE, MADELIN Name: NAVARRETE, MADELIN Name: GALO SMITH Name: GALO SMITH Care Team Personnel Name: BERENICE BOWLING DO Position: P4 Physician - Primary Care Med Service: Active Provider Member Role: Primary Care Physician Address: Address: [address] [place] [address]- Care Team Related Persons Name: CLIFFORD MCCRAY Name: CLIFFORD THOMAS Name: GALO HAMM Name: NAVARRETE, MADELIN Name: GALO SMITH Name: GALO SMITH Care Team Personnel Name: BERENICE BOWLING DO Position: P4 Physician - Primary Care Member Role: Primary Care Physician Address: Address: [facility] [place] [address]- Care Team Related Persons Name: CLIFFORD MCCRAY Name: CLIFFORD THOMAS Name: GALO HAMM Name: NAVARRETE, MADELIN Name: GALO SMITH Name: GALO SMITH Care Team Personnel Name: BERENICE BOWLING DO Position: P4 Physician - Primary Care Member Role: Primary Care Physician Address: Address: [facility] [place] [address]- Care Team Related Persons Name: MAHENDRA CLIFFORD Name: CLIFFORD THOMAS Name: GALO HAMM Name: MADELIN NAVARRETE Name: GALO SMITH Name: GALO SMITH Reason for Visit (unrecogniz ed section and content) Reason Comments Cough SINUS PRESSURE BOTH X 1 DAY Reason Comments Urinary Problem Vaginal area pressur e and pain x today, irritation abd burning in and around, had cath last week Reason Comments Medication Problem Reason Comments New Patient Evaluation Reason Comments Dental Pain Pt c/o dental pain x 2 weeks Reason Comments Established Patient Reason Comments AVS 04/01 Reason Comments Results Lab Patient Care team informatio n (unrecognized section and content) Team Status: Active Member Role Status Dates Dr. Berenice Bowling , DO Primary Care Provider Activ e Team Status: Inactive Member Role Status Dates Dr. Berenice Bowling , DO Primary Care Provider, Refe rring Provider Active Yuan MCKEON, PA Attending Provider Active Team Status: Inactive Member Role Status Dates Dr. Berenice Bowling , DO Primary Care Provider, Refe rring Provider Active Dr. Moncho Carrillo , DO Attending Provider Active Team Status: Active Member Role Status Dates Dr. Berenice Bowling , DO Primary Care Provider, Refe rring Provider Active Dr. Mnocho Carrillo , DO Attending Provider, Other Prov ider Active Inspector And Tester Relationship Specialty Start Date End Date Berenice Bowling DO [address] [place] [address] PCP - General Family Medicine 07/26/22 Inspector And Tester Relationship Specialty Start Date End Date Berenice Bowling DO [address] [place] [address] PCP - General Family Medicine 07/26/22 Team Status: Inactive Member Role Status Dates Dr. Berenice Bowling , Primary Care Provider Activ e Dr. Moncho Carrillo , DO Attending Provider, Referring Provider Active Inspector And Tester Relationship Specialty Start Date End Date Berenice Bowling DO [address] [place] [address] PCP - General Family Medicine 07/26/22 Inspector And Tester Relationship Specialty Start Date End Date Berenice Bowling DO [address] [place] [address] PCP - General 01/07/18 Inspector And Tester Relationship Specialty Start Date End Date Berenice Bowling DO [address] [place] [address] PCP - General Family Medicine 07/26/22 Moncho Carrillo DO [address] [facility] [address] [id number] Gastroenterology 04/01/24 Inspector And Tester Relationship Specialty Start Date End Date Berenice Bowling DO [address] [place] [address] PCP - General Family Medicine 07/26/22 Moncho Carrillo DO [address] [facility] [address] [id number] Gastroenterology 04/01/24 Team Status: Inactive Member Role Status Dates Dr. Berenice Bowling DO Primary Care Provider Activ e Start: August 14, 2024 End: August 14, 2024 Dr. Berenice Bowling DO Referring Provider Active Start: August 14, 2024 End: August 14, 2024 Dr. Moncho Carrillo DO Attending Provider Active Start: August 14, 2024 End: August 14, 2024 Team Status: Active Member Role Status Dates Dr. Berenice Bowling DO Primary Care Provider Activ e Start: August 14, 2024 Dr. Berenice Bowling DO Referring Provider Active Start: August 14, 2024 Dr. Moncho Carrillo DO Attending Provider Active Start: August 14, 2024 Dr. Moncho Carrillo DO Other Provider Active St art: August 14, 2024 Team Status: Inactive Member Role Status Dates Dr. Berenice Bowling DO Primary Care Provider Activ e Start: August 28, 2024 End: August 28, 2024 Dr. Berenice Bowling DO Referring Provider Active Start: August 28, 2024 End: August 28, 2024 MIKE Jang Attending Provider Active Start: August 28, 2024 End: August 28, 2024 Inspector And Tester Relationship Specialty Start Date End Date Berenice Bowling DO [address] [place] [address] PCP - General Family Medicine 07/26/22 Moncho Carrillo DO [address] [facility] [address] [address] [address] Gastroenterology 04/01/24 Scheduled Active and Recently Administ ered Medications (unrecognized section and content) Medication Order 03/29/2024 03/30/2024 03/31/2024 amoxicillin-clavulanate (Augmentin) 875-125 MG per tablet 1 tablet (COMPLETED) 1 tablet (875 mg), Oral, Once, On Sun03/31/24 at 0845, For 1 dose, Suspected Indication (Select all that apply): Other, Other Abx Indication: dental infection 0927 (Given - Provid er: Sharda Lundy RN) oxyCODONE-acetaminophen (Percocet) 5-325 MG per tablet 1 tablet (COMPLETED) 1 tablet, Oral, Once, On Sun03/31/24 at 0845, For 1 dose, Maximum dose of acetaminophen is 4000 mg from all sources in 24 hours. 0927 (Given - Provid er: Sharda Lundy RN) FOR RECORDS PERTAINING TO PATIENTS WHO ARE OR HAVE BEEN ENROLLED IN A CHEMICAL DEPENDENCY/SUBSTANCEABUSE PROGRAM, SOME INFORMATION MAY BE OMITTED. This clinical summary was aggregated from multiple sources. Caution should be exercised in using it in the provision of clinical care. This summary normalizes information from multiple sources, and as a consequence, information in this document may materially change the coding, format and clinical context of patient data. In addition, data may be omitted in some cases. CLINICAL DECISIONS SHOULD BE BASED ON THE PRIMARY CLINICAL RECORDS. [facility]. provides no warranty or guarantee of the accuracy or completeness of information in this document.
--- NOTE | 2024-10-22 06:36 | PCM.HP.STD ---
HPI - General General Date of Admission: 10/22/24 Date of Service: 10/22/24 Chief Complaint: Esophageal dysphagia HPI Narrative BELLE ALEXANDER, is a 54 F who presents for the evaluation of dysphagia. [facility] established 2..22 for screening colonoscopy and esophageal dysphagia. PMhx of Cristian-Luz gastric bypass in 2019 as well as cholecystectomy. EGD and colonoscopy 06.13.21 Irregular Zline; small hiatal hernia; Cristian-en-y gastrojejunostomy with healthy anastomosis. Metaplasia neg. Colonoscopy hemorrhoids; diverticulosis. No specimens EGD 01.30.23 esophageal stenosis, Savary 60F; irregular Zline; medium hiatal hernia; Cristian-en-Y with healthy anastomosis. No metaplasia Upper GISBFT 02.12.23 no acute/chronic abnormality. EGD 09.20.23 Benign-appearing esophageal stenosis. Dilated. Gastric bypass with a normal-sized pouch and intact staple line. Gastrojejunal anastomosis characterized by healthy appearing mucosa. Normal examined jejunum. No specimens collected. EGD 11.16.23 Abnormal esophageal motility, established esophageal spasm. Small hiatal hernia. Cristian-en-Y gastrojejunostomy with gastrojejunal anastomosis characterized by ulceration. Suspected jejunal inflammation characterized by erosions and erythema. Biopsied. GET 02.19.24 rapid emptying Last OV 1.8.25 Pt recently diagnosed with anemia. Having nausea once a week. EGD 08.14.24; - Z-line irregular, 39 cm from the incisors. Biopsied. 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 Biopsied. - Normal examined jejunum. Colonoscopy 08.14.24 Diverticulosis in the recto-sigmoid colon and in the sigmoid colon. - The examination was otherwise normal on direct and retroflexion views. - Congested mucosa in the distal ileum. Biopsied. OV 6.26.25 Pt continues to have epigastric pain daily. Pain is achy. Does not worsen after eating. [facility] Medical History Vitamin D deficiency Statin intolerance Morbid obesity HLD (hyperlipidemia) ISABELLA (generalized anxiety disorder) IBS (irritable bowel syndrome) Bunion Skin abrasion Petechiae Alcohol use History of hiatal hernia Sleep apnea Dysphagia Wears glasses Anxiety Diabetes Restless legs Dietary restriction Gastric reflux Former smoker CPAP (continuous positive airway pressure) dependence Neuropathy History of echocardiogram History of stress test Hypertension Encounter for screening for malignant neoplasm of colon Home Medications ?Medication ?Instructions ?Recorded ?Last Taken ?Type alprazolam 0.25 mg tablet (Xanax) 0.5 mg PO PRN PRN Anxiety 06/08/21 08/13/24 History fluoxetine 40 mg capsule (Prozac) 80 mg PO DAILY 06/08/21 08/13/24 History hydrochlorothiazide 25 mg tablet 25 mg PO DAILY 06/08/21 08/13/24 History metformin 1,000 mg tablet 1,000 mg PO BID 06/08/21 08/13/24 History cetirizine 10 mg tablet 10 mg PO DAILY 01/23/23 08/13/24 History pantoprazole 20 mg tablet,delayed 20 mg PO BID 07/26/23 08/13/24 History release ondansetron 4 mg disintegrating 4 mg PO Q8H PRN nausea and 10/11/23 08/12/24 Rx tablet vomiting #90 tabs ferrous sulfate 325 mg (65 mg 325 mg PO QDAY 03/12/24 08/11/24 History iron) tablet fxvsaw-lfxeewvi-zscsmie 3 cap PO QAC #300 caps 03/12/24 08/12/24 Rx 36,000-114,000-180,000 unit capsule,delay rel (Creon) potassium chloride 10 mEq 10 meq PO BID 03/12/24 08/13/24 History capsule,extended release mecobalamin (vitamin B12) 500 mcg 500 mcg PO DAILY #30 tabs 08/06/24 08/13/24 Rx chewable tablet losartan 25 mg tablet 25 mg PO DAILY 08/11/24 08/13/24 History acetaminophen 500 mg tablet 500 mg PO Q6H PRN pain 09/29/24 Unknown History (Tylenol Extra Strength) diclofenac sodium 1 % topical gel 2 g topical ONCE 09/29/24 Unknown History (Voltaren Arthritis Pain) fluticasone propionate 50 1 spray intranasal QDAY 09/29/24 Unknown History mcg/actuation nasal spray,suspension (Flonase Allergy Relief) nystatin 100,000 unit/gram topical 1 applic topical QDAY 09/29/24 Unknown History cream cholecalciferol (vitamin D3) 10 10 mcg PO QDAY #30 caps 10/16/24 Unknown Rx mcg (400 unit) capsule folic acid 1 mg tablet 1 mg PO DAILY #30 TABLETS 10/16/24 Unknown Rx buspirone 5 mg tablet 5 mg PO BID 10/21/24 Unknown History Allergy/AdvReac Type Severity Reaction Status Date / Time codeine (From Allergy Rash Verified 10/22/24 06:27 Tylenol-Codeine) hydrocodone (From Vicodin) Allergy Rash Verified 10/22/24 06:27 Sulfa (Sulfonamide Allergy Rash Verified 10/22/24 06:27 Antibiotics) NSAIDS (Non-Steroidal AdvReac Other Verified 10/22/24 06:27 Anti-Inflamma Family History Brother Diabetes Heart disease Hypertension Mother Cirrhosis of liver Diabetes Kidney disease Father Heart disease Hypertension Grandfather Heart disease Grandmother Heart disease Surgical History History of lithotripsy Hx of tubal ligation H/O bilateral breast reduction surgery History of esophagogastroduodenoscopy (EGD) Bariatric surgery status Hx of colonoscopy History of esophagogastroduodenoscopy (EGD) Hx of hernia repair History of tonsillectomy and adenoidectomy Hx of foot surgery Hx of total hysterectomy Hx of gastric bypass Hx laparoscopic cholecystectomy Social History Smoking Status: Former smoker how long ago did patient quit smoking: quit 2012 alcohol intake: never substance use type: does not use additional social history: denies vaping, denies marijuana use, denies edible, denies aspirin use denies ibuprofen ROS Constitutional Constitutional: Denies fatigue, fever(s), poor appetite, weight gain or weight loss Gastrointestinal Gastrointestinal: Denies belching, bloating, change in bowel habits, change in stool character, chewing difficulty, coffee ground emesis, constipation, cramping, diarrhea, dyspepsia, dysphagia, early satiety, excessive flatus, fecal incontinence, heartburn, hematemesis, hematochezia, hemorrhoids, loose stools, melena, nausea, odynophagia, rectal bleeding, tenesmus, vomiting or weight changes Physical Exam Const alert, oriented x3, no apparent distress and healthy appearing General Appearance: cooperative GI normal to inspection, nondistended, normoactive bowel sounds, soft to palpation, non-tender and non-distended Percussion: normal to percussion Rectal Exam: deferred Assessment & Plan Assessment/Plan (1) Dysphagia: QUALIFIERS: Dysphagia type: esophageal phase Qualified Code(s): R13.19 - Other dysphagia PLAN: Assessment and Plan Assessment and Plan (1) Dysphagia: Status: Chronic Qualifiers: Dysphagia type: esophageal phase Qualified Code(s): R13.19 - Other dysphagia Plan: Belle is a 54 yo female pt here today for f/u after upper and lower endoscopy. Biopsies were normal with no inflammation or pre cancer. She does have esophageal dysmotility resulting in ineffective esophageal motility disorder along with diffuse esophageal spasm and possible achalasia. She will undergo esophageal dilation with Botox injection therapy. I reviewed these results with her. GES showed quick gastric emptying. SHe continues to have epigastric pain that is achy. Will start her on dicyclomine for her pain. She make take it PRN or daily. SHe will continue PPI. She will f/u in 6 months. -Reviewed results -Start dicyclomine -Continue PPI (2) History of Cristian-en-Y gastric bypass: Status: Chronic Comment: 2019 (3) Nausea: Status: Chronic Medications: New dicyclomine 10 mg PO BID 90 caps 3RF
[2024-10-22] MEDS: Lactated Ringers 1,000 ML 15 ML IV (06:47)
--- NOTE | 2024-10-22 07:07 | PRE.ANES_ITS ---
ASA Classification* ASA Classification ASA Classification: 3 Assessment & Plan Anesthesia* Anesthesia Assessment Anesthesia Assessment: Discussed sedation and/or anesthesia options, risks, benefits, and alternatives with patient/parents/legal guardian/POA. Questions invited. The patient/parents/legal guardian/POA seems to understand and agrees to proceed with anesthesia plan. Reviewed the physical assessment, medical history, allergy history and patient home medications list prior to surgery/procedure/anesthetic and documented any changes. Performed airway and anesthesia risk assessments. Anesthesia Type Anesthesia Type: MAC History Source History Obtained from:: Patient and Chart Anesthesia Focused Assessment* Temperature: 97.1 F Pulse Rate: 65 Blood Pressure: 107/74 Respiratory Rate: 16 Pulse Ox: 97 Oxygen Delivery Method: Room Air Airway Assessment Mouth opens: >3 cm Mallampati Score: III Teeth Condition: Intact Neck Range of motion (ROM): Full ROM Labs Anesthesia Preop lab: CBC WBC 6.0 K/mm3 (4.4-11.0) 12/19/23 10:40 12/19/23 RBC 4.11 M/mm3 (4.2-5.4) L 12/19/23 10:40 12/19/23 Hgb 12.0 g/dL (12.0-15.0) 12/19/23 10:40 12/19/23 Hct 37.8 % (37-47) 12/19/23 10:40 12/19/23 Plt Count 256 K/mm3 (150-450) 12/19/23 10:40 12/19/23 CHEMISTRY Potassium 3.6 mmol/L (3.5-5.1) 12/19/23 10:40 12/19/23 Sodium 137 mmol/L (136-145) 12/19/23 10:40 12/19/23 BUN 11 mg/dL (7-18) 12/19/23 10:40 12/19/23 Creatinine 0.94 mg/dL (0.55-1.02) 12/19/23 10:40 12/19/23 Glucose 110 mg/dL (74-106) H 12/19/23 10:40 12/19/23 POC Glucose 138 mg/dL (74-106) H 08/14/24 08:46 08/14/24 COAG Pre-Assessment Diagnosis/Proposed Procedure Planned Operative Procedure(s): EGD Anesthesia History 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 When Was Last Pacemaker Check QUESTION #4 FULL TEXT: You/Your Family Experience fever (hyperthermia) with Anesthesia Last Oral Intake Last Oral intake: Last Oral Intake NPO since 05:30 10/22/24 06:50 Meds taken in AM with sips of Yes 10/22/24 06:50 water? 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 Female Yes 10/21/24 08:41 HX of Motion Sickness No 10/21/24 08:41 HX of N/V After Surgery No 10/21/24 08:41 Non-Smoker Yes 10/21/24 08:41 Duration of Surgery greater No 10/21/24 08:41 than 60 minutes Number of Risk Factors 2 10/21/24 08:41 PONV Score Moderate Risk 10/21/24 08:41 Height & Weight Height & Weight: Anesthesia: Height & Weight Height 5 ft 2 in 10/22/24 06:50 Weight: 97 kg 10/22/24 06:50 Body Mass Index (BMI) 39.1 10/22/24 06:50 Respiratory Assessment Respiratory Assessment - freight loading supervisor: Respiratory Tract Infection Hx - freight loading supervisor Hx Respiratory Tract Infection No 10/21/24 08:41 STOP Sleep Apnea STOP Sleep Apnea - freight loading supervisor: STOP Sleep Apnea - freight loading supervisor Hx Hypertension Yes: CONTROLLED WITH MEDS 10/21/24 08:41 Hx Sleep Apnea Yes 10/21/24 08:41 CPAP Yes 10/21/24 08:41 BIPAP No 10/21/24 08:41 Do you snore loudly (louder than talking or can be heard Do you often feel tired/ fatigued/ sleepy during daytime? Has anyone observed you stop breathing during sleep? STOP Results Positive 10/21/24 08:41 QUESTION #5 FULL TEXT : Do you snore loudly (louder than talking or can be heard through closed doors)? 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 Specify any problems Hx of Preganancy in last 3 No 10/21/24 08:41 Months Nurse Filling Out Transfusion [id number] 10/21/24 08:41 & Questions: Date: 10/21/24 10/21/24 08:41 Time: 08:44 10/21/24 08:41 Patient unable to answer at this time (ie. confused, unrespo /Reproduction History /Reproductive History - freight loading supervisor: /Reproductive Hx- freight loading supervisor Hx Now Gestational Age (in weeks): EDC: Hx Hx Para Hx Section SAB No 10/21/24 08:41 Active Medications Active Medications: Current Medications Generic Name Dose Route Start Last Admin Trade Name Freq PRN Reason Stop Dose Admin Lactated Ringer's 1,000 mls @ 15 mls/hr 10/22/24 06:30 10/22/24 06:47 IV 15 mls/hr .Q48H BERNADETTE Administration PFSH Medical History Vitamin D deficiency Statin intolerance Morbid obesity HLD (hyperlipidemia) ISABELLA (generalized anxiety disorder) IBS (irritable bowel syndrome) Bunion Skin abrasion Petechiae Alcohol use History of hiatal hernia Sleep apnea Dysphagia Wears glasses Anxiety Diabetes Restless legs Dietary restriction Gastric reflux Former smoker CPAP (continuous positive airway pressure) dependence Neuropathy History of echocardiogram History of stress test Hypertension Encounter for screening for malignant neoplasm of colon Home Medications ?Medication ?Instructions ?Recorded ?Last Taken ?Type alprazolam 0.25 mg tablet (Xanax) 0.5 mg PO PRN PRN An xiety 06/08/21 10/22/24 History fluoxetine 40 mg capsule (Prozac) 80 mg PO DAILY 06/0810/21/24 History hydrochlorothiazide 25 mg tablet 25 mg PO DAILY 10/21/24 History metformin 1,000 mg tablet 1,000 mg PO BID 06/08/21 History cetirizine 10 mg tablet 10 mg PO DAILY 01/23/2310/03 History pantoprazole 20 mg tablet,delayed 20 mg PO BID 4 10/21/24 History release ondansetron 4 mg disintegrating 4 mg PO Q8H PRN nausea and 10/11/23 08/12/24 Rx tablet vomiting #90 tabs ferrous sulfate 325 mg (65 mg 325 mg PO QDAY 03/12/24 10/21/24 History iron) tablet nkvxao-awxqptkb-fmhzcah 3 cap PO QAC #300 caps 03/1210/21/24 Rx 36,000-114,000-180,000 unit capsule,delay rel (Creon) potassium chloride 10 mEq 10 meq PO BID 03/12/2410/21 History capsule,extended release mecobalamin (vitamin B12) 500 mcg 500 mcg PO DAILY #30 tabs 08/06/24 10/21/24 Rx chewable tablet losartan 25 mg tablet 25 mg PO DAILY 08/11/2410/03 History acetaminophen 500 mg tablet 500 mg PO Q6H PRN pain Unknown History (Tylenol Extra Strength) diclofenac sodium 1 % topical gel 2 g topical ONCE Unknown History (Voltaren Arthritis Pain) fluticasone propionate 50 1 spray intranasal QDAY 09/0310/21/24 History mcg/actuation nasal spray,suspension (Flonase Allergy Relief) nystatin 100,000 unit/gram topical 1 applic topical QD AY 09/29/24 10/21/24 History cream cholecalciferol (vitamin D3) 10 10 mcg PO QDAY #30 cap s 10/16/24 10/21/24 Rx mcg (400 unit) capsule folic acid 1 mg tablet 1 mg PO DAILY #30 TABLETS 10/21/24 Rx buspirone 5 mg tablet 5 mg PO BID 10/21/24 5 History Allergy/AdvReac Type Severity Reaction Status Date / Time codeine (From Allergy Rash Verified 10/22/24 06:45 Tylenol-Codeine) hydrocodone (From Vicodin) Allergy Rash Verified 10/22/24 06:45 Sulfa (Sulfonamide Allergy Rash Verified 10/22/24 06:45 Antibiotics) NSAIDS (Non-Steroidal AdvReac Other Verified 10/22/24 06:45 Anti-Inflamma Family History Brother Diabetes Heart disease Hypertension Mother Cirrhosis of liver Diabetes Kidney disease Father Heart disease Hypertension Grandfather Heart disease Grandmother Heart disease Surgical History History of lithotripsy Hx of tubal ligation H/O bilateral breast reduction surgery History of esophagogastroduodenoscopy (EGD) Bariatric surgery status Hx of colonoscopy History of esophagogastroduodenoscopy (EGD) Hx of hernia repair History of tonsillectomy and adenoidectomy Hx of foot surgery Hx of total hysterectomy Hx of gastric bypass Hx laparoscopic cholecystectomy Social History Smoking Status: Former smoker how long ago did patient quit smoking: quit 2012 alcohol intake: never substance use type: does not use additional social history: denies vaping, denies marijuana use, denies edible, denies aspirin use denies ibuprofen Review of Systems (Anesthesia) ROS Narrative System reviewed and no additional complaints, except as documented.
--- NOTE | 2024-10-22 07:30 | EGD_PTH ---
PATIENT: PARDEEP ALEXANDER LOC: [facility] U#:[id number] AGE/SX: 54/F ROOM: RE10/22/[address]: Dr. Moncho Carrillo DO : 1970 BED: DIS: 10/22/2024 SPEC #: [id number] RECD: 10/22/24 09:10 STATUS: KARINA ARMANI #: [id number] MICHAEL: 10/22/24 07:[address]: Moncho Carrillo DEPT: SURGICAL PATHOLOGY RECD BY: Tony Pierce ENTERED: 10/22/24 10:24 SP TYPE: EGD BIOPSY KRISTEN DR: Dr. Sneha Bowling DO Tissues: A - COLON BIOPSY Procedures: Surgery Specimen Level IV HEADER OPERATION: EGD with Botox with biopsy PRE-OP DIAGNOSIS: Dysphagia TISSUE SUBMITTED: A- Anastomotic ulcer biopsy MICROSCOPIC DIAGNOSIS A. Anastomosis, ulcer, biopsy: Small intestinal mucosa with no specific pathologic change. MICROSCOPIC DESCRIPTION Slides are reviewed. GROSS DESCRIPTION A. Received in fixative is one container labeled with the patient's name and designated Anastomotic ulcer biopsy. The specimen consists of two irregular fragments of light manrique soft tissue that measure 0.3 and 0.7 cm. The specimen is totally submitted in one cassette. GA 10/22/2024 CPT:66907
[2024-10-22] MEDS: 0.9% Saline Lock 10 ML Syringe IV (07:33)
[2024-10-22] MEDS: 0.9% Normal Saline (Pres. free 10 ML Vial (07:55)
--- NOTE | 2024-10-22 08:03 | OP.PROVAT_ITS ---
10/22/2024 Sneha Bowling Re : Upper GI endoscopy procedure for Belle Hamm Dear Dash This procedure was performed on Tuesday, October 22, 2024. My impressions and recommendations are as follows: Impressions : - Abnormal esophageal motility. Injected with botulinum toxin. 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 Biopsied. - Normal examined jejunum. Recommendations : - Discharge patient to home. - Resume previous diet. - Continue present medications. - Await pathology results. - Use misoprostol 100 micrograms PO QID for 2 weeks. My findings are described in the full procedure note, which is enclosed. If I can be of further assistance, please feel free to contact me at . Sincerely, Moncho Carrillo, 10/22/2024 8:02:37 AM This report has been signed electronically.
--- NOTE | 2024-10-22 08:03 | OP.EGD_ITS ---
Patient Name: Belle Hamm Procedure Date: 10/22/2024 7:36 AM Date of : 1970 Age: 54 Procedure: Upper GI endoscopy Indications: Epigastric abdominal pain, Dysphagia Providers: Moncho Carrillo DO Referring MD: Moncho Carrillo DO Medicines: Monitored Anesthesia Care Patient Profile: This is a 54 year old female. Refer to note in patient chart for documentation of history and physical. Patient has symptoms of acute epigastric abdominal pain and dysphagia with both liquids and solids. Complications: No immediate complications. Procedure: Pre-Anesthesia Assessment: - Prior to the procedure, a History and Physical was performed, and patient medications and allergies were reviewed. The patient is competent. The risks and benefits of the procedure and the sedation options and risks were discussed with the patient. All questions were answered and informed consent was obtained. Patient identification and proposed procedure were verified by the physician in the pre-procedure area. Mental Status Examination: alert and oriented. Airway Examination: normal oropharyngeal airway and neck mobility. Respiratory Examination: clear to auscultation. CV Examination: normal. Prophylactic Antibiotics: The patient does not require prophylactic antibiotics. Prior Anticoagulants: The patient has taken no anticoagulant or antiplatelet agents except for NSAID medication. ASA Grade Assessment: II - A patient with mild systemic disease. After reviewing the risks and benefits, the patient was deemed in satisfactory condition to undergo the procedure. The anesthesia plan was to use monitored anesthesia care (MAC). Immediately prior to administration of medications, the patient was re-assessed for adequacy to receive sedatives. The heart rate, respiratory rate, oxygen saturations, blood pressure, adequacy of pulmonary ventilation, and response to care were monitored throughout the procedure. The physical status of the patient was re-assessed after the procedure. After obtaining informed consent, the endoscope was passed under direct vision. Throughout the procedure, the patient's blood pressure, pulse, and oxygen saturations were monitored continuously. The gastroscope was introduced through the mouth, and advanced to the anastomosis site of gastric bypass. The upper GI endoscopy was accomplished without difficulty. The patient tolerated the procedure well. Scope In: 7:51:22 AM Scope Out: 7:57:24 AM Total Procedure Duration Time 0 hours 6 minutes 2 seconds Findings: Abnormal motility was noted in the esophagus. The cricopharyngeus was abnormal. There are extra peristaltic waves in the esophageal body. The distal esophagus/lower esophageal sphincter is spastic, but gives up passage to the endoscope. Tertiary peristaltic waves are noted. Area was successfully injected with 100 units botulinum toxin. 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 The gastrojejunal anastomosis was characterized by ulceration. This was traversed. The eiqui-cw-najvyqe limb was characterized by healthy appearing mucosa. The jejunojejunal anastomosis was characterized by healthy appearing mucosa. The shxhrqbr-xr-izdsojq limb was not examined as it could not be found. The excluded stomach was not examined as it could not be found. Biopsies were taken with a cold forceps for histology. Verification of patient identification for the specimen was done. Estimated blood loss was minimal. The examined jejunum was normal. Impression: - Abnormal esophageal motility. Injected with botulinum toxin. 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 Biopsied. - Normal examined jejunum. Recommendation: - Discharge patient to home. - Resume previous diet. - Continue present medications. - Await pathology results. - Use misoprostol 100 micrograms PO QID for 2 weeks. Procedure Code(s): --- Professional --- 76697, Esophagogastroduodenoscopy, flexible, transoral; with biopsy, single or multiple 38235, 59,51, Esophagogastroduodenoscopy, flexible, transoral; with directed submucosal injection(s), any substance CPT copyright 2021 [employer]. All rights reserved. The codes documented in this report are preliminary and upon grey percher review may be revised to meet current compliance requirements. Moncho Carrillo DO 10/22/2024 8:02:37 AM This report has been signed electronically. Number of Addenda: 0 Note Initiated On: 10/22/2024 7:36 AM
--- NOTE | 2024-10-22 08:10 | PCM.POST.ANE ---
Anesthesia: Postop Eval I Current Vital Signs Temperature: 97 F Pulse Rate: 64 Blood Pressure: 98/66 Respiratory Rate: 16 Pulse Ox: 97 Oxygen Delivery Method: Room Air Assessment Airway patent: Yes Spontaneous unlabored respirations: Yes Mental status: Awake and Calm nausea: No Vomiting: No Anesthesia Complication: No Fluid Hydration Crystalloid volume administer (ml): 300 Total IV fluid infused: 300 Progress Note Anesthesia document: Postop Eval 1 completed: Yes
--- NOTE | 2024-10-22 10:18 | PCM.POSTANE2 ---
Anesthesia Postop Eval I Sum Postop Eval Completion status Anesthesia document: Postop Eval 1 completed: Yes Anesthesia Postop Eval I Summary Anesthesia Postop Eval I Summary: Anesthesia Postop Eval I: Assessment Summary Airway patent Yes 10/22/24 08:10 [email or web address] Spontaneous unlabored Yes 10/22/24 08:10 [email or web address] respirations Mental status Awake,Calm 10/22/24 08:10 [email or web address] nausea No 10/22/24 08:10 [email or web address] Vomiting No 10/22/24 08:10 [email or web address] Anesthesia Postop Eval I: Fluid Summary Crystalloid volume administer 300 10/22/24 08:10 [email or web address] (ml) Colloids volume administered ( ml) Blood Product volume administered (ml) Total IV fluid infused 300 10/22/24 08:10 [email or web address] Anesthesia Postop Eval I: Summary Notes Anesthesia Complication No 10/22/24 08:10 [email or web address] Anesthesia Complication Comment: Post-operative progress note Anesthesia: Postop Eval II Evaluation Mental status: Awake Pain Level: 0 nausea: No Vomiting: No
== END 2024-10-22 08:43 | disposition home or self-care (01) ==
LOC: EN 06:23 → AC 06:24
PROVIDERS: Visit Provider Internal Medicine Gastroenterology
PROC: 0DJ08ZZ Inspection of Upper Intestinal Tract, Via Natural or Artificial Opening Endoscopic (ICD-10-PCS; CPT 43235; principal; 2024-10-22 07:25)
DX: R13.19 Other dysphagia (principal); E11.9 Type 2 diabetes mellitus without complications; Z79.899 Other long term (current) drug therapy; Z87.891 Personal history of nicotine dependence; R11.0 Nausea; F41.1 Generalized anxiety disorder; Z90.710 Acquired absence of both cervix and uterus; E78.5 Hyperlipidemia, unspecified; I10 Essential (primary) hypertension; G47.30 Sleep apnea, unspecified; Z99.89 Dependence on other enabling machines and devices; Z79.84 Long term (current) use of oral hypoglycemic drugs; K21.9 Gastro-esophageal reflux disease without esophagitis; Z90.49 Acquired absence of other specified parts of digestive tract; Z98.84 Bariatric surgery status; K30 Functional dyspepsia
CPT/HCPCS: 43236; 43239; 82962; 88305; A4216; J0585; J2405